=== PATIENT | female | born 1945 | race Caucasian/White ===

== ENCOUNTER → 2018-01-23 | Outpatient (CLI) | payer MEDICARE, BC ==
--- NOTE | 2018-01-25 10:32 | MM ---
Reason for exam: screening (asymptomatic). Last mammogram was performed 1 year and 3 months ago. History: Patient is postmenopausal. Physical Findings: A clinical breast exam by your physician is recommended on an annual basis and results should be correlated with mammographic findings. MG 3D Screening Mammo W/Cad Bilateral CC and MLO view(s) were taken. Prior study comparison: October 25, 2016, right breast MG work up mamm w CAD RT. October 12, 2016, bilateral MG screening mammo w CAD. The breast tissue is heterogeneously dense. This may lower the sensitivity of mammography. Post surgical changes in the right breast outer CC view. No significant changes when compared with prior studies. ASSESSMENT: Benign, BI-RAD 2 RECOMMENDATION: Routine screening mammogram of both breasts in 1 year.
== END | disposition home or self-care (01) ==
LOC: RADMAMWWP 11:05
PROVIDERS: ATTEND Family Medicine
DX: Z12.31 Encounter for screening mammogram for malignant neoplasm of breast (principal)
CPT/HCPCS: 77063; 77067

== ENCOUNTER → 2018-12-31 | Outpatient (CLI) | payer MEDICARE ==
--- NOTE | 2018-12-31 17:18 | BD ---
EXAMINATION TYPE: Axial Bone Density DATE OF EXAM: 12/31/2018 COMPARISON: NONE CLINICAL HISTORY: 73-year-old female age-related osteoporosis Height: 58.5 IN Weight: 146 LBS RISK FACTORS HISTORY OF: Active: YES Diet low in dairy products/other sources of calcium: YES Postmenopausal woman: AGE 53 MEDICATIONS: Thyroid Medications: YES Which medication: Levothyroxine How Lon + YEARS Osteoporosis Medications: YES Which medication: ALENDRONATE SODIUM How Lon YEARS Additional Medications: VITAMIN D, XANAX, ASPIRIN, FUROSEMIDE, GLIMEPIRIDE, LEVOTHYROXINE, METFORMIN, SIMVASTATIN, TYLENOL, ABILIFY, CELEXA, ALENDRONATE SODIUM EXAM MEASUREMENTS: Bone mineral densitometry was performed using the [employer] System. Bone mineral density as measured about the Lumbar spine is: ----- L1-L4(G/cm2): 1.036 T Score Values are as follows: ----- L2: -1.2 ----- L3: -0.9 ----- L4: -1.0 ----- L1-L4: -1.2 Bone mineral density has: Decreased -0.7% since study of: 10/12/2016 Bone mineral density about the R hip (g/cm2): 0.648 Bone mineral density about the L hip (g/cm2): 0.681 T Score values are as follows: -----R Neck: -2.8 -----L Neck: -2.6 -----R Total: -1.8 -----L Total: -1.4 Bone mineral density has: NO CHANGE 0.0% since study of: 10/12/2016 IMPRESSION: Osteoporosis (T Score less than -2.5). There is increased fracture risk and therapy is usually indicated based on age. Re-Screen 1-2 years. NOTE: T-SCORE=SD OF THE YOUNG ADULT MEAN.
== END | disposition home or self-care (01) ==
LOC: RADBDWWP 13:17
PROVIDERS: ATTEND Family Medicine
DX: M81.0 Age-related osteoporosis without current pathological fracture (principal)
CPT/HCPCS: 77080

== ENCOUNTER → 2019-11-08 | Outpatient (CLI) | payer MEDICARE ==
--- NOTE | 2019-11-08 15:23 | US ---
EXAMINATION TYPE: US abdomen limited DATE OF EXAM: 11/08/2019 COMPARISON: NONE CLINICAL HISTORY: R94.5 Abnormal results of liver function studies. Abnormal labs EXAM MEASUREMENTS: Liver Length: 15.1 cm Gallbladder Wall: 0.2 cm CBD: 0.6 cm Right Kidney: 9.0 x 3.7 x 4.7 cm Pancreas: wnl, tail obscured by overlying bowel gas Liver: Heterogeneous Gallbladder: wnl Evidence for sonographic Roman's sign: No CBD: wnl Right Kidney: Small in size, cortical thinning, lower pole gassed out Heterogeneity of liver without worrisome mass or ductal dilatation on the images saved. No surroundin g ascites. IMPRESSION: Probable mild diffuse fatty infiltration of liver.
== END | disposition home or self-care (01) ==
LOC: RADUSWWP 14:45
PROVIDERS: ATTEND Family Medicine
DX: R94.5 Abnormal results of liver function studies (principal)
CPT/HCPCS: 76705

== ENCOUNTER → 2019-12-04 | Outpatient (CLI) | payer MEDICARE ==
--- NOTE | 2019-12-05 13:55 | MM ---
Reason for exam: screening (asymptomatic). Last mammogram was performed 1 year and 10 months ago. History: Patient is postmenopausal. Physical Findings: A clinical breast exam by your physician is recommended on an annual basis and results should be correlated with mammographic findings. MG 3D Screening Mammo W/Cad Bilateral CC and MLO view(s) were taken. Prior study comparison: January 23, 2018, bilateral MG 3d screening mammo w/cad. October 25, 2016, right breast MG work up mamm w CAD RT. The breast tissue is heterogeneously dense. This may lower the sensitivity of mammography. Right sided parenchymal scarring from port. No significant changes when compared with prior studies. ASSESSMENT: Benign, BI-RAD 2 RECOMMENDATION: Routine screening mammogram of both breasts in 1 year.
== END | disposition home or self-care (01) ==
LOC: RADMAMWWP 13:03
PROVIDERS: ATTEND Family Medicine
DX: Z12.31 Encounter for screening mammogram for malignant neoplasm of breast (principal)
CPT/HCPCS: 77063; 77067

== ENCOUNTER → 2021-01-04 | Outpatient (CLI) | payer MEDICARE ==
--- NOTE | 2021-01-04 16:03 | BD ---
EXAMINATION TYPE: Axial Bone Density DATE OF EXAM: 01/04/2021 COMPARISON: 10/12/2016 CLINICAL HISTORY: Height: 58 IN Weight: 137 LBS FRAX RISK QUESTIONS: Secondary Osteoporosis: 1. Type 1 Diabetes: YES 2. Hyperthyroidism: YES RISK FACTORS HISTORY OF: History of Wrist Fracture: YES RT WRIST FX IN TEENS Active: YES Postmenopausal woman: AGE 59 MEDICATIONS: Thyroid Medications: YES Which medication: Levothyroxine How Lon+ YEARS Additional Medications: CALCIUM, VIT D, CELEXA, ASPIRIN, FUROSEMIDE, LEVOTHYROXINE, SIMVASTATIN, TYLE NOL, ABILIFY, CELEXA, EXAM MEASUREMENTS: Bone mineral densitometry was performed using the [employer] System. Bone mineral density as measured about the Lumbar spine is: ----- L1-L4(G/cm2): 1.070 T Score Values are as follows: ----- L2: -1.1 ----- L3: -0.5 ----- L4: -0.5 ----- L1-L4: -0.9 Bone mineral density has: Increased 3.0% since study of: 10/12/2016 Bone mineral density about the R hip (g/cm2): 0.659 Bone mineral density about the L hip (g/cm2): 0.686 T Score values are as follows: -----R Neck: -2.7 -----L Neck: -2.5 -----R Total: -2.0 -----L Total: -1.5 Bone mineral density has: Decreased -2.5% since study of: 10/12/2016 IMPRESSION: Osteoporosis (T Score less than -2.5). There is increased fracture risk and therapy is usually indicated based on age. Re-Screen 1-2 years. NOTE: T-SCORE=SD OF THE YOUNG ADULT MEAN.
== END | disposition home or self-care (01) ==
LOC: RADBDWWP 08:26
PROVIDERS: ATTEND Family Medicine
DX: M81.0 Age-related osteoporosis without current pathological fracture (principal); Z78.0 Asymptomatic menopausal state
CPT/HCPCS: 77080

== ENCOUNTER → 2021-02-24 | Outpatient (CLI) | payer MEDICARE ==
--- NOTE | 2021-03-01 09:24 | MM ---
Reason for exam: screening (asymptomatic). Last mammogram was performed 1 year and 3 months ago. History: Patient is postmenopausal. Excisional biopsy of the right breast. Physical Findings: A clinical breast exam by your physician is recommended on an annual basis and results should be correlated with mammographic findings. MG 3D Screening Mammo W/Cad Bilateral CC and MLO view(s) were taken. Prior study comparison: December 04, 2019, bilateral MG 3d screening mammo w/cad. January 23, 2018, bilateral MG 3d screening mammo w/cad. The breast tissue is heterogeneously dense. This may lower the sensitivity of mammography. Increased distortion at prior biopsy right breast. This finding is changed when compared with previous exams. ASSESSMENT: Incomplete: need additional imaging evaluation, BI-RAD 0 RECOMMENDATION: Special view mammogram of the right breast. If lesion persists on supplemental views, image directed ultrasound is recommended. [facility] will attempt to contact patient to return for supplemental views and ultrasound if indicated.
== END | disposition home or self-care (01) ==
LOC: RADMAMWWP 13:46
PROVIDERS: ATTEND Family Medicine
DX: Z12.31 Encounter for screening mammogram for malignant neoplasm of breast (principal)
CPT/HCPCS: 77063; 77067

== ENCOUNTER → 2021-03-04 | Outpatient (CLI) | payer MEDICARE ==
--- NOTE | 2021-03-04 10:36 | MM ---
Reason for exam: additional evaluation requested from abnormal screening. Last mammogram was performed less than 1 month ago. History: Patient is postmenopausal. Excisional biopsy of the right breast. Physical Findings: Nurse did not find any significant physical abnormalities on exam. MG 3D Work Up W/Cad RT Spot compression CC, spot compression MLO, and ML view(s) were taken of the right breast. Prior study comparison: February 24, 2021, bilateral MG 3d screening mammo w/cad. December 04, 2019, bilateral MG 3d screening mammo w/cad. Finding: Stable architectural distortion in the upper outer quadrant, middle position of the right breast consistent with known surgical changes/scar. There is no discrete abnormality. These results were verbally communicated with the patient and result sheet given to the patient on 03/04/21. ASSESSMENT: Benign, BI-RAD 2 RECOMMENDATION: Return to routine screening mammogram schedule for both breasts.
== END | disposition home or self-care (01) ==
LOC: RADMAMWWP 08:41
PROVIDERS: ATTEND Family Medicine
DX: R92.8 Other abnormal and inconclusive findings on diagnostic imaging of breast (principal)
CPT/HCPCS: 77065; G0279; 77061

== ENCOUNTER → 2021-09-06 | Outpatient (CLI) | payer MEDICARE ==
--- NOTE | 2021-09-06 11:11 | US ---
EXAMINATION TYPE: US kidneys/renal and bladder DATE OF EXAM: 09/06/2021 COMPARISON: NONE CLINICAL HISTORY: R31.1 Micro hematuria. EXAM MEASUREMENTS: Right Kidney: 9.3 x 3.7 x 4.7 cm Left Kidney: 8.9 x 4.4 x 5.7 cm Right Kidney: No hydronephrosis or masses seen Left Kidney: 1.1 x 1.2 x 1.2 cm lateral cyst. Bladder: wnl Bilateral Jets seen: No There is no evidence for hydronephrosis at this point in time. No nephrolithiasis is seen. No solid masses are identified. The urinary bladder is anechoic. IMPRESSION: Left renal cyst.
== END | disposition home or self-care (01) ==
LOC: RADUSWWP 10:42
PROVIDERS: ATTEND Urology
DX: N28.1 Cyst of kidney, acquired (principal)
CPT/HCPCS: 76770

== ENCOUNTER → 2021-11-10 | Outpatient (CLI) | payer MEDICARE ==
[2021-11-10 19:17] LABS: African American GFR (CKD) 71.5 (60.0-200.0); BUN/Creat Ratio 12.22 Ratio (12.00-20.00); Calcium 9.6 mg/dL (8.7-10.3); Non-African American GFR(CKD) 61.7 (60.0-200.0); Potassium 4.4 mmol/L (3.5-5.5)
== END | disposition home or self-care (01) ==
LOC: LABWHC1 14:41
PROVIDERS: ATTEND Nurse Practitioner Adult Health
DX: E11.69 Type 2 diabetes mellitus with other specified complication (principal)
CPT/HCPCS: 36415; 80048; 83036

== ENCOUNTER 2022-07-27 13:05 | Observation (INO) | payer MEDICARE ==
[2022-07-27] MEDS ORDERED: SODIUM CHLORIDE 0.9% 1,000 ML IV STA (15:12)
--- NOTE | 2022-07-27 15:23 | ED ---
Altered Mental Status HPI - General Chief Complaint: Altered Mental Status Stated Complaint: AMS Time Seen by Provider: 07/27/22 14:56 Source: patient Mode of arrival: wheelchair Limitations: altered mental status - History of Present Illness Initial Comments: This patient is 77-year-old woman brought to have evaluation of altered mental status. Most of the history comes from the patient's . He states that per her primary physician she may have some mild dementia. He states that over the past number days she has been getting more confused and disoriented. Today they had gone to eat and she ended up falling asleep during the meal. She then also had incontinence there. The patient's had taken her home to clean her up. He states that when he got her undressed and during the shower she basically had no idea how to shower or what was going on. He brings her here to have further evaluation. Patient is able to answer simple direct questions and denies physical complaint at the moment MD Complaint: altered mental status, confusion -: days(s) Severity: moderate Consistency of Symptoms: getting worse Associated Symptoms: other - Related Data Home Medications Medication Instructions Recorded Confirmed ARIPiprazole 5 mg PO DAILY 07/27/22 07/27/22 Acetaminophen Tab [Tylenol Tab] 1,000 mg PO Q6H PRN 07/27/22 07/27/22 Alendronate Sodium 70 mg PO CALABRESE 07/27/22 07/27/22 Aspirin EC [Ecotrin Low Dose] 81 mg PO DAILY 07/27/22 07/27/22 Calcium Citrate/Vitamin D3 1 tab PO DAILY 07/27/22 07/27/22 [Citracal + D Maximum Caplet] Citalopram Hydrobromide 20 mg PO DAILY 07/27/22 07/27/22 [Citalopram HBr] Cyanocobalamin (Vitamin B-12) 1,000 mcg PO DAILY 07/27/22 07/27/22 [Vitamin B-12] Furosemide [Lasix] 20 mg PO DAILY 07/27/22 07/27/22 Levothyroxine Sodium 100 mcg PO DAILY 07/27/22 07/27/22 Simvastatin 80 mg PO HS 07/27/22 07/27/22 metFORMIN HCL [Glucophage] 500 mg PO TID 07/27/22 07/27/22 Allergies Allergy/AdvReac Type Severity Reaction Status Date / Time peanut AdvReac "Watery Verified 07/27/22 16:48 eyes" Review of Systems ROS Statement: Those systems with pertinent positive or pertinent negative responses have been documented in the HPI. ROS Other: All systems not noted in ROS Statement are negative. Limitations: ROS unobtainable due to patients medical condition Constitutional: Denies: fever Respiratory: Denies: cough, dyspnea Cardiovascular: Denies: chest pain Gastrointestinal: Denies: abdominal pain Musculoskeletal: Denies: back pain Neurological: Denies: headache Past Medical History Past Medical History: Diabetes Mellitus, Hyperlipidemia, Hypertension, Thyroid Disorder History of Any Multi-Drug Resistant Organisms: None Reported Past Surgical History: No Surgical Hx Reported Past Psychological History: Depression Smoking Status: Never smoker Past Alcohol Use History: None Reported Past Drug Use History: None Reported General Exam Limitations: no limitations General appearance: alert, in no apparent distress Head exam: Present: atraumatic, normocephalic Eye exam: Present: normal appearance. Absent: scleral icterus, conjunctival injection Neck exam: Present: normal inspection, full ROM Respiratory exam: Present: normal lung sounds bilaterally. Absent: respiratory distress, wheezes, rales, rhonchi, stridor Cardiovascular Exam: Present: regular rate, normal rhythm, normal heart sounds. Absent: systolic murmur, diastolic murmur, rubs, gallop GI/Abdominal exam: Present: soft. Absent: distended, tenderness, guarding, rebound, rigid, mass Extremities exam: Present: normal inspection, normal capillary refill. Absent: pedal edema, calf tenderness Back exam: Present: normal inspection Neurological exam: Present: alert, CN II-XII intact. Absent: oriented X3 (Patient is oriented to person and place but could not state the date), motor sensory deficit Skin exam: Present: warm, dry, intact, normal color. Absent: rash Course Vital Signs 07/27/22 07/27/22 07/27/22 13:12 15:25 16:25 Temperature 97.8 F 98.7 F Pulse Rate 110 H 94 Respiratory 16 18 20 Rate Blood Pressure 119/70 149/71 O2 Sat by Pulse 100 98 Oximetry 07/27/22 07/27/22 07/27/22 17:11 19:06 22:18 Temperature Pulse Rate 78 92 Respiratory 20 18 18 Rate Blood Pressure 150/73 151/75 O2 Sat by Pulse 100 97 Oximetry 07/28/22 00:07 Temperature Pulse Rate Respiratory Rate Blood Pressure 154/83 O2 Sat by Pulse Oximetry Medical Decision Making - Medical Decision Making Patient is 77-year-old woman here for altered mental status. Workup reveals that there is elevated lactic acid, but no obvious source of infection. Cultures are pending. The computed tomography scan does reveal bilaterally enlarged ventricles and there is questionable normal pressure hydrocephalus. Patient be admitted for further evaluation and treatment. - Lab Data Result diagrams: 07/27/22 15:28 07/27/22 15: Lab Results 07/27/22 07/27/22 07/27/22 Range/Units 15:28 15: 15: WBC 9.9 (3.8-10.6) k/uL RBC 4.13 (3.80-5.40) m/uL Hgb 11.4 (11.4-16.0) gm/dL Hct 35.7 (34.0-46.0) % MCV 86.4 (80.0-100.0) fL MCH 27.7 (25.0-35.0) pg MCHC 32.0 (31.0-37.0) g/dL RDW 14.3 (11.5-15.5) % Plt Count 257 (150-450) k/uL MPV 7.5 Neutrophils % 82 % Lymphocytes % 12 % Monocytes % 5 % Eosinophils % 0 % Basophils % 0 % Neutrophils # 8.1 H (1.3-7.7) k/uL Lymphocytes # 1.2 (1.0-4.8) k/uL Monocytes # 0.5 (0-1.0) k/uL Eosinophils # 0.0 (0-0.7) k/uL Basophils # 0.0 (0-0.2) k/uL PT 10.2 (9.0-12.0) sec INR 0.9 (<1.2) APTT 23.3 (22.0-30.0) sec Sodium (137-145) mmol/L Potassium (3.5-5.1) mmol/L Chloride (98-107) mmol/L Carbon Dioxide (22-30) mmol/L Anion Gap mmol/L BUN (7-17) mg/dL Creatinine (0.52-1.04) mg/dL Est GFR (CKD-EPI)AfAm (>60 ml/min/1.73 sqM) Est GFR (CKD-EPI)NonAf (>60 ml/min/1.73 sqM) Glucose (74-99) mg/dL POC Glucose (mg/dL) (70-110) mg/dL POC Glu Bandage Maker ID Lactic Ac Sepsis Rflx Plasma Lactic Acid Mark (0.7-2.0) mmol/L Calcium (8.4-10.2) mg/dL Total Bilirubin (0.2-1.3) mg/dL AST (14-36) U/L ALT (4-34) U/L Alkaline Phosphatase (38-126) U/L Ammonia (<30) umol/L Troponin I (0.000-0.034) ng/mL Total Protein (6.3-8.2) g/dL Albumin (3.5-5.0) g/dL Urine Color Colorless Urine Appearance Clear (Clear) Urine pH 7.5 (5.0-8.0) Ur Specific [place] 1.004 (1.001-1.035) Urine Protein Negative (Negative) Urine Glucose (UA) Negative (Negative) Urine Ketones 2+ H (Negative) Urine Blood Small H (Negative) Urine Nitrite Negative (Negative) Urine Bilirubin Negative (Negative) Urine Urobilinogen <2.0 (<2.0) mg/dL Ur Leukocyte Esterase Negative (Negative) Urine RBC 3 (0-5) /hpf Urine Opiates Screen Not Detected (NotDetected) Ur Oxycodone Screen Not Detected (NotDetected) Urine Methadone Screen Not Detected (NotDetected) Ur Propoxyphene Screen Not Detected (NotDetected) Ur Barbiturates Screen Not Detected (NotDetected) U Tricyclic Antidepress Not Detected (NotDetected) Ur Phencyclidine Scrn Not Detected (NotDetected) Ur Amphetamines Screen Not Detected (NotDetected) U Methamphetamines Scrn Not Detected (NotDetected) U Benzodiazepines Scrn Not Detected (NotDetected) Urine Cocaine Screen Not Detected (NotDetected) U Marijuana (THC) Screen Not Detected (NotDetected) 07/27/22 07/27/22 07/27/22 Range/Units 15:28 15:28 15:28 WBC (3.8-10.6) k/uL RBC (3.80-5.40) m/uL Hgb (11.4-16.0) gm/dL Hct (34.0-46.0) % MCV (80.0-100.0) fL MCH (25.0-35.0) pg MCHC (31.0-37.0) g/dL RDW (11.5-15.5) % Plt Count (150-450) k/uL MPV Neutrophils % % Lymphocytes % % Monocytes % % Eosinophils % % Basophils % % Neutrophils # (1.3-7.7) k/uL Lymphocytes # (1.0-4.8) k/uL Monocytes # (0-1.0) k/uL Eosinophils # (0-0.7) k/uL Basophils # (0-0.2) k/uL PT (9.0-12.0) sec INR (<1.2) APTT (22.0-30.0) sec Sodium 138 (137-145) mmol/L Potassium 4.0 (3.5-5.1) mmol/L Chloride 96 L (98-107) mmol/L Carbon Dioxide 22 (22-30) mmol/L Anion Gap 20 mmol/L BUN 19 H (7-17) mg/dL Creatinine 1.09 H (0.52-1.04) mg/dL Est GFR (CKD-EPI)AfAm 56 (>60 ml/min/1.73 sqM) Est GFR (CKD-EPI)NonAf 49 (>60 ml/min/1.73 sqM) Glucose 150 H (74-99) mg/dL POC Glucose (mg/dL) (70-110) mg/dL POC Glu Bandage Maker ID Lactic Ac Sepsis Rflx Plasma Lactic Acid Mark 7.8 H* (0.7-2.0) mmol/L Calcium 9.5 (8.4-10.2) mg/dL Total Bilirubin 1.2 (0.2-1.3) mg/dL AST 28 (14-36) U/L ALT 25 (4-34) U/L Alkaline Phosphatase 89 (38-126) U/L Ammonia <9 (<30) umol/L Troponin I <0.012 (0.000-0.034) ng/mL Total Protein 7.4 (6.3-8.2) g/dL Albumin 4.7 (3.5-5.0) g/dL Urine Color Urine Appearance (Clear) Urine pH (5.0-8.0) Ur Specific [place] (1.001-1.035) Urine Protein (Negative) Urine Glucose (UA) (Negative) Urine Ketones (Negative) Urine Blood (Negative) Urine Nitrite (Negative) Urine Bilirubin (Negative) Urine Urobilinogen (<2.0) mg/dL Ur Leukocyte Esterase (Negative) Urine RBC (0-5) /hpf Urine Opiates Screen (NotDetected) Ur Oxycodone Screen (NotDetected) Urine Methadone Screen (NotDetected) Ur Propoxyphene Screen (NotDetected) Ur Barbiturates Screen (NotDetected) U Tricyclic Antidepress (NotDetected) Ur Phencyclidine Scrn (NotDetected) Ur Amphetamines Screen (NotDetected) U Methamphetamines Scrn (NotDetected) U Benzodiazepines Scrn (NotDetected) Urine Cocaine Screen (NotDetected) U Marijuana (THC) Screen (NotDetected) 07/27/22 07/27/22 07/27/22 Range/Units 16:17 16:54 20:30 WBC (3.8-10.6) k/uL RBC (3.80-5.40) m/uL Hgb (11.4-16.0) gm/dL Hct (34.0-46.0) % MCV (80.0-100.0) fL MCH (25.0-35.0) pg MCHC (31.0-37.0) g/dL RDW (11.5-15.5) % Plt Count (150-450) k/uL MPV Neutrophils % % Lymphocytes % % Monocytes % % Eosinophils % % Basophils % % Neutrophils # (1.3-7.7) k/uL Lymphocytes # (1.0-4.8) k/uL Monocytes # (0-1.0) k/uL Eosinophils # (0-0.7) k/uL Basophils # (0-0.2) k/uL PT (9.0-12.0) sec INR (<1.2) APTT (22.0-30.0) sec Sodium (137-145) mmol/L Potassium (3.5-5.1) mmol/L Chloride (98-107) mmol/L Carbon Dioxide (22-30) mmol/L Anion Gap mmol/L BUN (7-17) mg/dL Creatinine (0.52-1.04) mg/dL Est GFR (CKD-EPI)AfAm (>60 ml/min/1.73 sqM) Est GFR (CKD-EPI)NonAf (>60 ml/min/1.73 sqM) Glucose (74-99) mg/dL POC Glucose (mg/dL) 160 H (70-110) mg/dL POC Glu Bandage Maker ID Ariana Layton Lactic Ac Sepsis Rflx Y Plasma Lactic Acid Mark 4.7 H* (0.7-2.0) mmol/L Calcium (8.4-10.2) mg/dL Total Bilirubin (0.2-1.3) mg/dL AST (14-36) U/L ALT (4-34) U/L Alkaline Phosphatase (38-126) U/L Ammonia (<30) umol/L Troponin I (0.000-0.034) ng/mL Total Protein (6.3-8.2) g/dL Albumin (3.5-5.0) g/dL Urine Color Urine Appearance (Clear) Urine pH (5.0-8.0) Ur Specific [place] (1.001-1.035) Urine Protein (Negative) Urine Glucose (UA) (Negative) Urine Ketones (Negative) Urine Blood (Negative) Urine Nitrite (Negative) Urine Bilirubin (Negative) Urine Urobilinogen (<2.0) mg/dL Ur Leukocyte Esterase (Negative) Urine RBC (0-5) /hpf Urine Opiates Screen (NotDetected) Ur Oxycodone Screen (NotDetected) Urine Methadone Screen (NotDetected) Ur Propoxyphene Screen (NotDetected) Ur Barbiturates Screen (NotDetected) U Tricyclic Antidepress (NotDetected) Ur Phencyclidine Scrn (NotDetected) Ur Amphetamines Screen (NotDetected) U Methamphetamines Scrn (NotDetected) U Benzodiazepines Scrn (NotDetected) Urine Cocaine Screen (NotDetected) U Marijuana (THC) Screen (NotDetected) 07/27/22 Range/Units 21:12 WBC (3.8-10.6) k/uL RBC (3.80-5.40) m/uL Hgb (11.4-16.0) gm/dL Hct (34.0-46.0) % MCV (80.0-100.0) fL MCH (25.0-35.0) pg MCHC (31.0-37.0) g/dL RDW (11.5-15.5) % Plt Count (150-450) k/uL MPV Neutrophils % % Lymphocytes % % Monocytes % % Eosinophils % % Basophils % % Neutrophils # (1.3-7.7) k/uL Lymphocytes # (1.0-4.8) k/uL Monocytes # (0-1.0) k/uL Eosinophils # (0-0.7) k/uL Basophils # (0-0.2) k/uL PT (9.0-12.0) sec INR (<1.2) APTT (22.0-30.0) sec Sodium (137-145) mmol/L Potassium (3.5-5.1) mmol/L Chloride (98-107) mmol/L Carbon Dioxide (22-30) mmol/L Anion Gap mmol/L BUN (7-17) mg/dL Creatinine (0.52-1.04) mg/dL Est GFR (CKD-EPI)AfAm (>60 ml/min/1.73 sqM) Est GFR (CKD-EPI)NonAf (>60 ml/min/1.73 sqM) Glucose (74-99) mg/dL POC Glucose (mg/dL) (70-110) mg/dL POC Glu Bandage Maker ID Lactic Ac Sepsis Rflx Y Plasma Lactic Acid Mark (0.7-2.0) mmol/L Calcium (8.4-10.2) mg/dL Total Bilirubin (0.2-1.3) mg/dL AST (14-36) U/L ALT (4-34) U/L Alkaline Phosphatase (38-126) U/L Ammonia (<30) umol/L Troponin I (0.000-0.034) ng/mL Total Protein (6.3-8.2) g/dL Albumin (3.5-5.0) g/dL Urine Color Urine Appearance (Clear) Urine pH (5.0-8.0) Ur Specific [place] (1.001-1.035) Urine Protein (Negative) Urine Glucose (UA) (Negative) Urine Ketones (Negative) Urine Blood (Negative) Urine Nitrite (Negative) Urine Bilirubin (Negative) Urine Urobilinogen (<2.0) mg/dL Ur Leukocyte Esterase (Negative) Urine RBC (0-5) /hpf Urine Opiates Screen (NotDetected) Ur Oxycodone Screen (NotDetected) Urine Methadone Screen (NotDetected) Ur Propoxyphene Screen (NotDetected) Ur Barbiturates Screen (NotDetected) U Tricyclic Antidepress (NotDetected) Ur Phencyclidine Scrn (NotDetected) Ur Amphetamines Screen (NotDetected) U Methamphetamines Scrn (NotDetected) U Benzodiazepines Scrn (NotDetected) Urine Cocaine Screen (NotDetected) U Marijuana (THC) Screen (NotDetected) - EKG Data -: EKG Interpreted by Me EKG shows normal: sinus rhythm, axis (Rate is 102 BPM normal), intervals (Normal), QRS complexes (Normal) Rate: tachycardia Interpretation: nonspecific ST-T wave changes Disposition Clinical Impression: Altered mental status, Lactic acidosis Disposition: ADMITTED IP TO THIS [facility] Condition: Stable Is patient prescribed a controlled substance at d/c from ED?: No
[2022-07-27 15:49] LABS: Basophils % (A) 0 %; Eosinophils % (A) 0 %; HCT 35.7 % (34.0-46.0); HGB 11.4 gm/dL (11.4-16.0); Lymphocytes # (A) 1.2 k/uL (1.0-4.8); Lymphocytes % (A) 12 %; MCH 27.7 pg (25.0-35.0); MCV 86.4 fL (80.0-100.0); Mean Platelet Volume 7.5; Monocytes # (A) 0.5 k/uL (0-1.0); Monocytes % (A) 5 %; Neutrophils # (A) 8.1 k/uL (1.3-7.7); Neutrophils % (A) 82 %; Platelet Count 257 k/uL (150-450); RBC 4.13 m/uL (3.80-5.40); RDW 14.3 % (11.5-15.5); WBC 9.9 k/uL (3.8-10.6)
[2022-07-27 16:02] LABS: Albumin 4.7 g/dL (3.5-5.0); Calcium 9.5 mg/dL (8.4-10.2); Total Bilirubin 1.2 mg/dL (0.2-1.3); Total Protein 7.4 g/dL (6.3-8.2)
[2022-07-27 16:15] LABS: INR 0.9 (<1.2); Partial Thromboplastin Time 23.3 sec (22.0-30.0); Prothrombin Time 10.2 sec (9.0-12.0)
[2022-07-27 16:16] LABS: Lactic Acid, Venous 7.8 mmol/L (0.7-2.0)
[2022-07-27 16:56] LABS: Glucose,Whole Blood 160 mg/dL (70-110)
--- NOTE | 2022-07-27 17:03 | XR ---
EXAMINATION TYPE: XR chest 2V DATE OF EXAM: 07/27/2022 COMPARISON: NONE HISTORY: Weakness TECHNIQUE: 2 views FINDINGS: There is no heart failure nor confluent pneumonic infiltrate. Costophrenic angles are clear . There are no hilar masses. No pleural effusion. Bony thorax is intact there are chest leads. Pulmon monique vascularity is normal. There is moderate arthritic change of the right shoulder joint. IMPRESSION: No active cardiopulmonary disease.
[2022-07-27] MEDS ORDERED: SODIUM CHLORIDE 0.9% 1,000 ML IV ONE (17:20)
[2022-07-27 19:01] LABS: Appearance,Urine Clear (Clear); Bilirubin,Urine Negative (Negative); Blood,Urine Small (Negative); Color,Urine Colorless; Glucose,Urine (UA) Negative (Negative); Ketones,Urine 2+ (Negative); Leukocyte Esterase,Urine Negative (Negative); Nitrite,Urine Negative (Negative); PH, Urine 7.5 (5.0-8.0); Protein,Urine Negative (Negative); RBC,Urine 3 /hpf (0-5); Specific Gravity,Urine 1.004 (1.001-1.035); Urobilinogen,Urine <2.0 mg/dL (<2.0)
[2022-07-27 19:24] LABS: Amphetamine Screen,Urine Not Detected (NotDetected); Barbiturate Screen,Urine Not Detected (NotDetected); Benzodiazepines Screen,Urine Not Detected (NotDetected); Cocaine Screen,Urine Not Detected (NotDetected); Methadone Screen, Urine Not Detected (NotDetected); Opiate Screen,Urine Not Detected (NotDetected); Oxycodone Screen, Urine Not Detected (NotDetected); Phencyclidine Screen,Urine Not Detected (NotDetected); Tricyclic Antidepressant,Urine Not Detected (NotDetected); Urn Cannabinoid Scrn Not Detected (NotDetected)
[2022-07-27] MEDS ORDERED: ACETAMINOPHEN TAB 325 MG TAB PO PRN (21:31)
[2022-07-27] MEDS ORDERED: NALOXONE 0.4 MG/ML 1 ML VIAL IV PRN (21:31)
--- NOTE | 2022-07-27 21:40 | CT ---
EXAMINATION TYPE: CT brain wo con DATE OF EXAM: 07/27/2022 COMPARISON: 02/18/2011 HISTORY: AMS CT DLP: 1090.4 mGycm Automated exposure control for dose reduction was used. There is cerebral cortical atrophy. There is no mass effect or midline shift. No sign of intracranial hemorrhage. There is hypodensity in the periventricular white matter. Calvarium is intact. Skull bas e is intact. IMPRESSION: Cerebral atrophy and chronic small vessel ischemia that has progressed compared to old exam. No acute abnormality.
[2022-07-27] MEDS ORDERED: SODIUM CHLORIDE 0.9% 500 ML 500 ML IV STA (22:10)
--- NOTE | 2022-07-28 03:13 | P.HPIM ---
History of Present Illness H&P Date: 07/27/22 The patient is a 77-year-old female with a PMH of type 2 dm and dementia who was brought into the emergency room accompanied by her for worsening confusion. The history is largely provided by the at the bedside. He reports that the patient's mentation is gradually been deteriorating over the past several years, but notes that she was acutely confused earlier today. States that they were out having lunch when she appeared to not be quite herself. She had an episode of fecal incontinence at which time he took her home. He reports however that she continued to be very confused and was unable to get into the shower and did not know how to bathe herself. He became alarmed and decided to bring her to the emergency room. At time of interview, the patient reports that she may have been confused earlier today but denied any additional complaints. She denied experiencing fever, chills, chest pain, shortness of breath, nausea, vomiting, abdominal pain, diarrhea. CT brain in the emergency room revealed cerebral atrophy and chronic small vessel ischemia with no acute abnormalities. EKG revealed sinus a cardiac 102 bpm with no specific ST/T-wave changes noted as reviewed by me. Chest x-ray was unremarkable. Laboratory evaluation was remarkable for a lactic acid of 7.8 and subsequent 4.7. BUN was 19 creatinine 1.09 glucose 150. Review of systems: Pertinent positives and negatives as discussed in HPI, a complete review of systems was performed and all other systems are negative. Physical examination: General: non toxic, no distress, appears at stated age, normal weight Derm: no unusual rashes/lesions, warm Head: atraumatic, normocephalic, symmetric Eyes: EOMI, no lid lag, anicteric sclera, pupils equal round reactive to light ENT: Nose and ears atraumatic Neck: No cervical lymphadenopathy, trachea midline, supple Mouth: no lip lesion, mucus membranes moist Cardiovascular: S1S2 reg, no murmur, positive dorsalis pedis pulse bilateral, no edema Lungs: CTA bilateral, no rhonchi, no rales, no accessory muscle use Abdominal: soft, nontender to palpation, no guarding Ext: muscle strength 5 out of 5 in all 4 extremities grossly, no gross muscle atrophy, no contractures, Neuro: CN II-XI grossly intact, no gross focal neuro deficits Psych: Alert, oriented only to person and place, not oriented to time Assessment/plan Altered mental status, with baseline dementia, unclear etiology -No obvious source of infection noted -Fall precautions -Neurology consult Lactic acidosis, unclear etiology -Monitor blood cultures -Received ceftriaxone in the emergency room -IV fluids -Monitor for resolution Chronic conditions: Type 2 DM -Insulin sliding scale with BG monitoring DVT prophylaxis -Heparin subq The patient is admitted with an anticipated less than 2 midnight stay for evaluation of AMS CODE STATUS: Full Code Discussed with: Patient, Anticipated discharge date: in am Anticipated discharge place: Home Past Medical History Past Medical History: Diabetes Mellitus, Hyperlipidemia, Hypertension, Thyroid Disorder History of Any Multi-Drug Resistant Organisms: None Reported Past Surgical History: No Surgical Hx Reported Past Psychological History: Depression Smoking Status: Never smoker Past Alcohol Use History: None Reported Past Drug Use History: None Reported - Past Family History Brother(s) Additional Family Medical History / Comment(s): Unable to obtain due to patient's underlying dementia Medications and Allergies Home Medications Medication Instructions Recorded Confirmed Type ARIPiprazole 5 mg PO DAILY 07/27/22 07/27/22 History Acetaminophen Tab [Tylenol Tab] 1,000 mg PO Q6H PRN 07/27/22 07/27/22 History Alendronate Sodium 70 mg PO CALABRESE 07/27/22 07/27/22 History Aspirin EC [Ecotrin Low Dose] 81 mg PO DAILY 07/27/22 07/27/22 History Calcium Citrate/Vitamin D3 1 tab PO DAILY 07/27/22 07/27/22 History [Citracal + D Maximum Caplet] Citalopram Hydrobromide 20 mg PO DAILY 07/27/22 07/27/22 History [Citalopram HBr] Cyanocobalamin (Vitamin B-12) 1,000 mcg PO DAILY 07/27/22 07/27/22 History [Vitamin B-12] Furosemide [Lasix] 20 mg PO DAILY 07/27/22 07/27/22 History Levothyroxine Sodium 100 mcg PO DAILY 07/27/22 07/27/22 History Simvastatin 80 mg PO HS 07/27/22 07/27/22 History metFORMIN HCL [Glucophage] 500 mg PO TID 07/27/22 07/27/22 History Allergies Allergy/AdvReac Type Severity Reaction Status Date / Time peanut AdvReac "Watery Verified 07/27/22 16:48 eyes" Physical Exam Vitals: Vital Signs Temp Pulse Resp BP Pulse Ox 07/27/22 22:18 92 18 151/75 97 07/27/22 19:06 78 18 150/73 100 07/27/22 17:11 20 07/27/22 16:25 20 07/27/22 15:25 98.7 F 94 18 149/71 98 07/27/22 13:12 97.8 F 110 H 16 119/70 100 Intake and Output 07/27/22 07/27/22 07/28/22 14:59 22:59 06:59 Other: Weight 55.792 kg Results CBC & Chem 7: 07/27/22 15:28 07/27/22 15:28 Labs: Abnormal Lab Results - Last 24 Hours (Table) 07/27/22 07/27/22 07/27/22 Range/Units 15:28 15:28 15:28 Neutrophils # 8.1 H (1.3-7.7) k/uL Chloride 96 L (98-107) mmol/L BUN 19 H (7-17) mg/dL Creatinine 1.09 H (0.52-1.04) mg/dL Glucose 150 H (74-99) mg/dL POC Glucose (mg/dL) (70-110) mg/dL Plasma Lactic Acid Mark (0.7-2.0) mmol/L Urine Ketones 2+ H (Negative) Urine Blood Small H (Negative) 07/27/22 07/27/22 07/27/22 Range/Units 15:28 16:54 20:30 Neutrophils # (1.3-7.7) k/uL Chloride (98-107) mmol/L BUN (7-17) mg/dL Creatinine (0.52-1.04) mg/dL Glucose (74-99) mg/dL POC Glucose (mg/dL) 160 H (70-110) mg/dL Plasma Lactic Acid Mark 7.8 H* 4.7 H* (0.7-2.0) mmol/L Urine Ketones (Negative) Urine Blood (Negative)
[2022-07-28] MEDS: LEVOTHYROXINE 100 MCG TAB PO SCH (05:43)
[2022-07-28 07:46] LABS: Glucose,Whole Blood 177 mg/dL (70-110)
[2022-07-28] MEDS: ASPIRIN 81 MG PO SCH (08:03)
[2022-07-28] MEDS: CALCIUM CARB-VIT D 500 MG-5 MCG TAB PO SCH (08:04)
[2022-07-28] MEDS: INSULIN ASPART (NovoLOG) 100 UNIT/ML VIAL SQ SCH ×4 (08:04→21:48)
[2022-07-28] MEDS: HEPARIN SODIUM,PORCINE/PF 5,000 UNIT/0.5 ML SYRINGE SQ SCH ×3 (08:04→23:58)
[2022-07-28] MEDS: CYANOCOBALAMIN 500 MCG TAB PO SCH (08:05)
[2022-07-28] MEDS ORDERED: FAMOTIDINE 20 MG TAB PO SCH (09:00)
[2022-07-28] MEDS: ARIPiprazole 5 MG TAB PO SCH (09:09)
--- NOTE | 2022-07-28 10:35 | P.CNNES ---
History of Present Illness Consult date: 07/28/22 Requesting physician: Dre Arrieta Reason for Consult: altered mental status History of Present Illness: This is a 77-year-old woman with medical history of hypertension, hyperlipidemia, hypothyroidism who presented to the emergency department because of confusion. History is obtained from medical record. According to the patient is she does not recall what transpired and let her to the hospital but the last thing that she remembers is that she was out at a restaurant with her . Per medical record according to the primary team the notified the primary team that the patient was confused earlier yesterday and they're having lunch but was not herself. She had an episode of fecal incontinence and continued to be confused. I guess she went into the shower but did not know how to bathe herself so the decided to bring the patient to the emergency department. He felt that the patient has been deteriorating over the past several years mentation-zavala. She denies any history of seizure. She denied any fever or recent sickness. She denies any tongue soreness. Patient denies of any tobacco use, alcohol use or any illicit drug use. Of note patient stated that she has tremor of her right upper extremity at rest and has been going on for years and walks very slow. Some of the workup during this hospital visit consisted of: White blood cell is 9.9 minimally neutrophilic otherwise the rest of the CBC with differential is unremarkable. Initial serum glucose is 150, creatinine is 1.09 Initial plasma lactic acid the vein is 7. 8 repeat is 4.7. AST and ALT is within normal limits Ammonia is less than 9. Urinalysis is negative for urinary tract infection Urine drug screen is not detected. Review of Systems Review of system: The 12 point system was reviewed and apparent positive and negative per HPI. Past Medical History Past Medical History: Diabetes Mellitus, Hyperlipidemia, Hypertension, Thyroid Disorder History of Any Multi-Drug Resistant Organisms: None Reported Past Surgical History: No Surgical Hx Reported Past Anesthesia/Blood Transfusion Reactions: No Reported Reaction Past Psychological History: Depression Smoking Status: Never smoker Past Alcohol Use History: None Reported Past Drug Use History: None Reported - Past Family History Brother(s) Additional Family Medical History / Comment(s): Unable to obtain due to patient's underlying dementia Medications and Allergies Home Medications Medication Instructions Recorded Confirmed Type ARIPiprazole 5 mg PO DAILY 07/27/22 07/27/22 History Acetaminophen Tab [Tylenol Tab] 1,000 mg PO Q6H PRN 07/27/22 07/27/22 History Alendronate Sodium 70 mg PO CALABRESE 07/27/22 07/27/22 History Aspirin EC [Ecotrin Low Dose] 81 mg PO DAILY 07/27/22 07/27/22 History Calcium Citrate/Vitamin D3 1 tab PO DAILY 07/27/22 07/27/22 History [Citracal + D Maximum Caplet] Citalopram Hydrobromide 20 mg PO DAILY 07/27/22 07/27/22 History [Citalopram HBr] Cyanocobalamin (Vitamin B-12) 1,000 mcg PO DAILY 07/27/22 07/27/22 History [Vitamin B-12] Furosemide [Lasix] 20 mg PO DAILY 07/27/22 07/27/22 History Levothyroxine Sodium 100 mcg PO DAILY 07/27/22 07/27/22 History Simvastatin 80 mg PO HS 07/27/22 07/27/22 History metFORMIN HCL [Glucophage] 500 mg PO TID 07/27/22 07/27/22 History Allergies Allergy/AdvReac Type Severity Reaction Status Date / Time peanut AdvReac "Watery Verified 07/27/22 16:48 eyes" Physical Examination - Vital Signs Vital Signs: Vital Signs Temp Pulse Pulse Resp BP BP Pulse Ox 07/28/22 07:50 98.9 F 88 14 149/75 98 07/28/22 02:00 99.1 F 91 17 151/77 99 07/28/22 00:21 98.5 F 91 18 157/73 99 07/28/22 00:07 154/83 07/27/22 22:18 92 18 151/75 97 07/27/22 19:06 78 18 150/73 100 07/27/22 17:11 20 07/27/22 16:25 20 07/27/22 15:25 98.7 F 94 18 149/71 98 07/27/22 13:12 97.8 F 110 H 16 119/70 100 Intake and Output 07/27/22 07/28/22 07/28/22 22:59 06:59 14:59 Output Total 1450 Balance -1450 Output: Urine 1450 Other: Weight 55.792 kg GENERAL: The patient is lying in bed and is not in acute distress. CHEST: The heart rate is regular rate rhythm. No murmurs to auscultation. LUNG: Clear to auscultation bilaterally no wheezing noted throughout. Not labored breathing. ABDOMEN/GI: Bowel sounds present in all 4 quadrants. No tenderness to palpation throughout. NEUROLOGICAL: Higher mental function: The patient is awake, alert, oriented to self and place. She correctly chose the year with options and did not respond to month. She correctly named objects (pen, watch). Patient is following simple commands. No aphasia and no neglect. Cranial nerves: The pupils are round, equal and reactive to light and accommodation. Visual jolly are full to confrontation throughout. Extraocular movement is intact no nystagmus is noted. Facial sensation is normal to touch throughout. The facial strength is normal throughout. Hearing is normal bilaterally to hand rub. Tongue is midline and moved [id number] without any difficulty. No dysarthria is noted. Shoulder shrug is normal bilaterally. Motor: Gait is slow but not swaying toward one side or other (walking independently). The strength is 5 over 5 throughout. Normal tone and bulk. She had mild resting tremor of the right hand. Cerebellum: Normal finger to nose bilaterally. Sensation: Sensation is normal to touch throughout. Reflexes (right/left): 2+ throughout except ankles are 1+ bilaterally. Plantars are mute bilaterally. Results - Laboratory Findings CBC and BMP: 07/27/22 15:28 07/27/22 15:28 Abnormal Lab Findings: Abnormal Labs 07/27/22 07/27/22 07/27/22 15:28 15:28 15:28 Neutrophils # 8.1 H Chloride 96 L BUN 19 H Creatinine 1.09 H Glucose 150 H POC Glucose (mg/dL) Plasma Lactic Acid Mark Urine Ketones 2+ H Urine Blood Small H 07/27/22 07/27/22 07/27/22 15:28 16:54 20:30 Neutrophils # Chloride BUN Creatinine Glucose POC Glucose (mg/dL) 160 H Plasma Lactic Acid Mark 7.8 H* 4.7 H* Urine Ketones Urine Blood 07/27/22 07/28/22 23:00 07:45 Neutrophils # Chloride BUN Creatinine Glucose POC Glucose (mg/dL) 177 H Plasma Lactic Acid Mark 2.4 H* Urine Ketones Urine Blood Assessment and Plan Assessment: Altered mental status with reported bowel incontinence (patient does not recall event) and : Seems concerning for seizure Cognitive impairment/dementia (reported for years and mentation has been worsening) Resting tremor of the right upper extremity is concerning for Parkinson's disease Hypertension Up with Shantel him Plan: I ordered a routine EEG and MRI of the brain seizure protocol I will not place the patient on any seizure medications since this is first episode. Unless EEG shows any epileptiform discharges or seizure or the MRI is suggestive of a mass or lastly of the patient has another seizure Ordered TSH, vitamin B-12, folate Every [address] on seizure precaution and pads. For her suspicion for Parkinson's disease started on Sinement 25-100 1 tab tid ( 07, 12, 17) and will assess if any improvement with medication. Recommended detailed cognitive assessment as outpatient. Will defer the rest of medical management to the primary team. Upon discharge, the patient needs to follow-up with neurologist as outpatient within 1-2 weeks. The plan is discussed with primary team. Thank you for the consultation. Morro Meyer M.D. Neuro-Hospitalist Time with Patient: Greater than 30
[2022-07-28] MEDS: CARBIDOPA-LEVODOPA 25-100 MG 1 EACH TAB PO SCH ×2 (11:21→16:50)
[2022-07-28 11:29] LABS: Glucose,Whole Blood 153 mg/dL (70-110)
--- NOTE | 2022-07-28 14:14 | MR ---
EXAMINATION TYPE: MR brain wo/w con DATE OF EXAM: 07/28/2022 COMPARISON: CT brain from yesterday HISTORY: No prior, seizure, history of dementia TECHNIQUE: Multiplanar, multisequence images of the brain and brainstem is performed without and with IV contras t, utilizing 5.5 mL intravenous Gadavist . FINDINGS: Diffusion weighted images demonstrate no evidence of a recent infarct or other diffusion ab normality. There is mild to moderate ventricular and sulcal prominence. There are multifocal and con fluent areas of T2 hyperintensity seen throughout the white matter bilaterally. Lesions are nonspecif ic in appearance and distribution. T2 coronal weighted images show hippocampal gyri to appear symmetr ic and felt within normal limits. Midline structures demonstrate normal morphology. The craniocervical junction appears within normal limits. Thinning of the corpus callosum is present. Post contrast images demonstrate no abnormal enha ncement. The dural venous sinuses appear patent. The visualized sinuses are clear and the globes are intact. IMPRESSION: [id number] diffuse cerebral atrophy and moderate to advanced chronic small vessel i schemic change. No suspicious enhancement seen.
--- NOTE | 2022-07-28 15:47 | P.PN ---
Subjective Progress Note Date: 07/28/22 The patient is a 77-year-old female with type 2 dm and dementia who was brought into the emergency room accompanied by her for worsening confusion and fecal incontience. In the ED she underwent an extensive evaluation. CT brain in the emergency room revealed cerebral atrophy and chronic small vessel ischemia with no acute abnormalities. EKG revealed sinus a cardiac 102 bpm with non- specific ST/T-wave changes. Chest x-ray was unremarkable. Laboratory evaluation was remarkable for a lactic acid of 7.8, BUN was 19 creatinine 1.09 glucose 150. She was placed in observation for further monitoring. She was seen by neurology who is concern for possible Parkinson's disease and she was started on Sinemet. She underwent MRI brain which showed small vessel chronic changes. Sh e underwent an EEG which was normal. She continued to improve. Patient seen and examined at bedside. No family is present. She denies any headache, lightheadedness, dizziness. General: nontoxic, no distress, appears at stated age Derm: warm, dry Head: atraumatic, normocephalic, symmetric Eyes: EOMI, no lid lag, anicteric sclera Mouth: no lip lesion, mucus membranes moist Cardiovascular: S1S2 reg, no murmur, positive posterior tibial pulse bilateral, Lungs: CTA bilateral, no rhonchi, no rales , no accessory muscle use Abdominal: soft, nontender to palpation, no guarding, no appreciable o rganomegaly Ext: no gross muscle atrophy, no edema, no contractures Neuro: CN II-XI grossly intact, no focal neuro deficits Psych: Alert, oriented to person, place, year, appropriate affect Assessment/plan: Acute delerium on dementia possible seizure- less likely with normal MRI and EEG, due to first episode no aniteleptic drugs at this time Possible parkinsons disease vs Parkinsonism - Sinement started by neurology - monitor overnight for symptoms. DM II - glucophage at home - SSI - follow BS Hypothyroidism - TSH pending - synthroid Home in AM Attempted to call twice and no answer Objective - Vital Signs Vital signs: Vital Signs Temp 98.9 F 07/28/22 07:50 Pulse 88 07/28/22 07:50 Resp 14 07/28/22 07:50 BP 149/75 07/28/22 07:50 Pulse Ox 98 07/28/22 07:50 FiO2 Intake & Output 07/27/22 07/28/22 07/28/22 18:59 06:59 18:59 Output Total 1450 Balance -1450 Weight 55.792 kg 55.792 kg Output: Urine 1450 - Labs CBC & Chem 7: 07/27/22 15:28 07/27/22 15:28 Labs: Abnormal Lab Results - Last 24 Hours (Table) 07/27/22 07/27/22 07/27/22 Range/Units 15:28 15:28 15:28 Neutrophils # 8.1 H (1.3-7.7) k/uL Chloride 96 L (98-107) mmol/L BUN 19 H (7-17) mg/dL Creatinine 1.09 H (0.52-1.04) mg/dL Glucose 150 H (74-99) mg/dL POC Glucose (mg/dL) (70-110) mg/dL Plasma Lactic Acid Mark (0.7-2.0) mmol/L Urine Ketones 2+ H (Negative) Urine Blood Small H (Negative) 07/27/22 07/27/22 07/27/22 Range/Units 15:28 16:54 20:30 Neutrophils # (1.3-7.7) k/uL Chloride (98-107) mmol/L BUN (7-17) mg/dL Creatinine (0.52-1.04) mg/dL Glucose (74-99) mg/dL POC Glucose (mg/dL) 160 H (70-110) mg/dL Plasma Lactic Acid Mark 7.8 H* 4.7 H* (0.7-2.0) mmol/L Urine Ketones (Negative) Urine Blood (Negative) 07/27/22 07/28/22 07/28/22 Range/Units 23:00 07:45 11:28 Neutrophils # (1.3-7.7) k/uL Chloride (98-107) mmol/L BUN (7-17) mg/dL Creatinine (0.52-1.04) mg/dL Glucose (74-99) mg/dL POC Glucose (mg/dL) 177 H 153 H (70-110) mg/dL Plasma Lactic Acid Mark 2.4 H* (0.7-2.0) mmol/L Urine Ketones (Negative) Urine Blood (Negative)
[2022-07-28 16:58] LABS: Glucose,Whole Blood 231 mg/dL (70-110)
[2022-07-28] MEDS ORDERED: ATORVASTATIN 40 MG TAB PO SCH (21:00)
[2022-07-28 21:13] LABS: Glucose,Whole Blood 212 mg/dL (70-110)
--- NOTE | 2022-07-28 23:54 | EEG ---
ELECTROENCEPHALOGRAM REPORT CLINICAL HISTORY: This is a 77-year-old woman, who presented because of confusion and bowel incontinence. The video EEG is obtained to evaluate for seizure epileptiform activity. RELEVANT MEDICATION: The patient is not on any antiepileptic drugs. EEG TYPE: A routine 21-channel EEG is performed with video using the 10/20 electrode placement system. DESCRIPTION: Wakefulness is only obtained. During awake state, the background consists of low-to- moderate voltage of 9-10 hertz activity. There is no physiological sleep architecture seen. There is no focal slowing. INTERICTAL AND ICTAL: None. ACTIVATION PROCEDURE: Photic stimulation did not evoke a posterior driving response. There is no abnormality during the photic stimulation. Hyperventilation was not performed. CLINICAL INTERPRETATION: This is a normal routine EEG. There is no focal slowing, epileptiform discharges, or seizure on the EEG. Clinical correlation is recommended FLAKITA / GRISELDA: [id number] / MTDD
[2022-07-29] MEDS: LEVOTHYROXINE 100 MCG TAB PO SCH (06:10)
[2022-07-29 07:18] LABS: Glucose,Whole Blood 127 mg/dL (70-110)
[2022-07-29 08:16] VITALS: BP 131/78; PULSE 65; RESP 18; TEMP 98.4
[2022-07-29] MEDS: INSULIN ASPART (NovoLOG) 100 UNIT/ML VIAL SQ SCH (08:48)
[2022-07-29] MEDS: ASPIRIN 81 MG PO SCH (08:53)
[2022-07-29] MEDS: CYANOCOBALAMIN 500 MCG TAB PO SCH (08:53)
[2022-07-29] MEDS: ARIPiprazole 5 MG TAB PO SCH (08:54)
[2022-07-29] MEDS: CALCIUM CARB-VIT D 500 MG-5 MCG TAB PO SCH (08:54)
[2022-07-29] MEDS: CARBIDOPA-LEVODOPA 25-100 MG 1 EACH TAB PO SCH (08:54)
[2022-07-29] MEDS: HEPARIN SODIUM,PORCINE/PF 5,000 UNIT/0.5 ML SYRINGE SQ SCH (08:54)
[2022-07-29] MEDS ORDERED: FAMOTIDINE 20 MG TAB PO SCH (09:00)
--- NOTE | 2022-07-29 11:55 | P.DS ---
Providers Date of admission: 07/27/22 21:31 Expected date of discharge: 07/29/22 Attending physician: Suzanne Merino MD Consults: 07/27/22 21:31 Consult Physician Routine Consulting Provider: Morro Meyer Consult Reason/Comments: Altered mental status Do you want consulting provider notified?: Yes Primary care physician: Beatris Killian MD Hospital Course: Discharge Diagnosis: Posisble sieuzre- first episode, no need for Antieleptic drug at this time per neurology Probable Parkinson's disease Acute delerium [facility] dementia DM II Hypothyroidism Hospital Course: The patient is a 77-year-old female with type 2 dm and dementia who was brought into the emergency room accompanied by her for worsening confusion and fecal incontience. In the ED she underwent an extensive evaluation. CT brain in the emergency room revealed cerebral atrophy and chronic small vessel ischemia with no acute abnormalities. EKG revealed sinus a cardiac 102 bpm with non- specific ST/T-wave changes. Chest x-ray was unremarkable. Laboratory evaluation was remarkable for a lactic acid of 7.8, BUN was 19 creatinine 1.09 glucose 150. She was placed in observation for further monitoring. She was seen by neurology who is concern for possible Parkinson's disease and she was started on Sinemet. She underwent MRI brain which showed small vessel chronic changes. She underwent an EEG which was normal. She continued to improve. She was determined stable for discharge. Follow-up: Dr. Lala, Dr. Nunez for neurology in 1-2 weeks, [facility]. Patient seen and examined at bedside. No pain, FERGUSON, nuasea, no complaints currently. Vital signs reviewed and stable. General: nontoxic, no distress, appears at stated age Derm: warm, dry Head: atraumatic, normocephalic, symmetric Eyes: EOMI, no lid lag, anicteric sclera Mouth: no lip lesion, mucus membranes moist Cardiovascular: S1S2 reg, no murmur, positive posterior tibial pulse bilateral, Lungs: Decreased bs bilateral, no rhonchi, no rales , no accessory muscle use Abdominal: soft, nontender to palpation, no guarding, no appreciable organomegaly Ext: no gross muscle atrophy, no edema, no contractures Neuro: CN II-XI grossly intact, no focal neuro deficits Psych: Alert, oriented to place, situation, and year, appropriate affect A total of 25 minutes of time were spent preparing this complex discharge summary. Patient was discharged on 07/29/22. Patient Condition at Discharge: Stable Plan - Discharge Summary Discharge Rx Participant: No New Discharge Prescriptions: New Carbidopa-Levodopa 25-100 mg [Sinemet 25-100 mg] 1 each PO TID@0700,1200,1800 #90 tab Continue Cyanocobalamin (Vitamin B-12) [Vitamin B-12] 1,000 mcg PO DAILY metFORMIN HCL [Glucophage] 500 mg PO TID Levothyroxine Sodium 100 mcg PO DAILY Furosemide [Lasix] 20 mg PO DAILY Alendronate Sodium 70 mg PO CALABRESE Calcium Citrate/Vitamin D3 [Citracal + D Maximum Caplet] 1 tab PO DAILY Acetaminophen Tab [Tylenol] 1,000 mg PO Q6H PRN PRN Reason: Pain Citalopram Hydrobromide [Citalopram HBr] 20 mg PO DAILY ARIPiprazole 5 mg PO DAILY Simvastatin 80 mg PO HS Aspirin EC [Ecotrin Low Dose] 81 mg PO DAILY Discharge Medication List ARIPiprazole 5 mg PO DAILY 07/27/22 [History] Acetaminophen Tab [Tylenol] 1,000 mg PO Q6H PRN 07/27/22 [History] Alendronate Sodium 70 mg PO CALABRESE 07/27/22 [History] Aspirin EC [Ecotrin Low Dose] 81 mg PO DAILY 07/27/22 [History] Calcium Citrate/Vitamin D3 [Citracal + D Maximum Caplet] 1 tab PO DAILY 07/27/22 [History] Citalopram Hydrobromide [Citalopram HBr] 20 mg PO DAILY 07/27/22 [History] Cyanocobalamin (Vitamin B-12) [Vitamin B-12] 1,000 mcg PO DAILY 07/27/22 [History] Furosemide [Lasix] 20 mg PO DAILY 07/27/22 [History] Levothyroxine Sodium 100 mcg PO DAILY 07/27/22 [History] Simvastatin 80 mg PO HS 07/27/22 [History] metFORMIN HCL [Glucophage] 500 mg PO TID 07/27/22 [History] Carbidopa-Levodopa 25-100 mg [Sinemet 25-100 mg] 1 each PO TID@0700,1200,1800 #90 tab 07/29/22 [Rx] Follow up Appointment(s)/Referral(s): Robin Nunez MD [REFERRING] - 1 Week (Office will call you with appointment) Daniel Lala MD [REFERRING] - 1-2 Days (Please call office Monday for your appointment. Dr. Hinson Office number is [phone].) [facility] Visiting Nurse, [NON-STAFF] - (Agency will contact you to set up a schedule.) Patient Instructions/Handouts: Seizure/Epilepsy Discharge Instructions & Follow-Up, Parkinson Disease (DC), Type 2 Diabetes in the Older Adult (DC) Activity/Diet/Wound Care/Special Instructions: Activity: as tolerated Diet: Carb consistent Special Instructions: Please make a neurology appointment for further work-up into your possible parkinson's disease Discharge Disposition: HOME SELF-CARE
== END 2022-07-29 11:18 | disposition home or self-care (01) ==
LOC: EC 13:05 → 4SSUR 21:31
PROVIDERS: ADMIT Internal Medicine; ATTEND Internal Medicine
DX: F05 Delirium due to known physiological condition (principal); E87.2 Acidosis; E11.9 Type 2 diabetes mellitus without complications; E78.5 Hyperlipidemia, unspecified; I10 Essential (primary) hypertension; E03.9 Hypothyroidism, unspecified; F32.A Depression, unspecified; F03.90 Unspecified dementia, unspecified severity, without behavioral disturbance, psychotic disturbance, mood disturbance, and anxiety; Z79.82 Long term (current) use of aspirin; Z79.84 Long term (current) use of oral hypoglycemic drugs; Z79.890 Hormone replacement therapy; Z79.899 Other long term (current) drug therapy
CPT/HCPCS: 96372 ×2; 96361; 96365; 99285; 36415; 95816; 93005; 97116; 97162; 97530; 97166; 80053; 84443; 82607; 82140; 82746; 83605 ×2; 84484; 85025; 85610; 85730; 81001; 80306; 71046; 70450; 70553; G0378 ×3; J0696; J1644 ×2; A9585

== ENCOUNTER → 2023-07-18 | Outpatient (CLI) | payer MEDICARE ==
--- NOTE | 2023-07-18 21:34 | BD ---
EXAMINATION TYPE: Axial Bone Density DATE OF EXAM: 07/18/2023 CLINICAL HISTORY: 78 years old Female. ICD-10 CODE: M81.0 Osteoporosis Height: 58 Weight: 127.5 FRAX RISK QUESTIONS: Alcohol (3 or more units per day): no Family History (Parent hip fracture): no Glucocorticoids (More than 3mos): no History of Fracture in Adulthood: no Secondary Osteoporosis: 1. Type 1 Diabetes: no 2. Hyperthyroidism: no 3. Menopause before 45: no 4. Malnutrition: no 5. Chronic liver disease: no Rheumatoid Arthritis: no Current Tobacco Use: no RISK FACTORS HISTORY OF: Hip Fracture (Right/Left): no Spine Fracture: no History of Wrist Fracture: Lt Wrist When: Teenager Surgery to Spine/Hip(right/left)/Wrist (right/left): Left Wrist Family History of Osteoporosis: no Active: no Diet low in dairy products/other sources of calcium: yes Postmenopausal woman: yes Take estrogen and/or progesterone medications: no Lost more than 2 inches in height since high school: no Frequent falls: no Poor Health: no Hyperparathyroidism: no Adrenal Insufficiency: no MEDICATIONS: Prednisone or other steroids: no Thyroid Medications: Levothyroxine Which medication: past 10 years Osteoporosis Medications: yes, not sure of name Additional Medications: Cholesterol Meds, Vit D, Calcium Additional History: EXAM MEASUREMENTS: Bone mineral densitometry was performed using the [employer] System. Bone mineral density as measured about the Lumbar spine is: ----- L1-L4(G/cm2): 1.164 T Score Values are as follows: ----- L1: -1.1 ----- L2: -0.4 ----- L3: 0.4 ----- L4: 0.2 ----- L1-L4: -0.1 Z Score Values are as follows: ----- L1: 0.9 ----- L2: 1.7 ----- L3: 2.5 ----- L4: 2.2 ----- L1-L4: 1.9 Bone mineral density has: increased 8.8 % since study of: 01/04/2021 Bone mineral density about the R hip (g/cm2): 0.803 Bone mineral density about the L hip (g/cm2) 0.815 T Score values are as follows: -----R Neck: -2.6 -----L Neck: -2.6 -----R Total: -1.6 -----L Total: -1.5 Z Score values are as follows: -----R Neck: -0.3 -----L Neck: -0.4 -----R Total: -1.6 -----L Total: -1.5 Bone mineral density has: increased 2.8 % since study of: 01/04/2021 FRAX%s: The graph provided illustrates a 20.6% chance for a major osteoporotic fx and a 7.5% chance f or the hips probability for fx in 10 years time. IMPRESSION: Osteoporosis (T Score less than -2.5). There is increased fracture risk and therapy is usually indicated based on age. Re-Screen 1-2 years. NOTE: T-SCORE=SD OF THE YOUNG ADULT MEAN.
--- NOTE | 2023-07-19 16:40 | MM ---
Reason for Exam: Screening (asymptomatic). Last mammogram was performed 2 year(s) and 5 month(s) ago. Patient History: Menarche at age 14. First Full-Term at age 17. Postmenopausal. Excisional Biopsy on the Right side. Risk Values: Marcela 5 year model risk: 1.3%. NCI Lifetime model risk: 2.2%. Prior Study Comparison: 12/04/2019 Bilateral Screening Mammogram, [facility]. 02/24/2021 Bilateral Screening Mammogram, [facility]. 03/04/2021 Right Diagnostic Mammogram, [facility]. Tissue Density: The breast tissue is heterogeneously dense. This may lower the sensitivity of mammography. Findings: Analyzed By CAD. Pattern appears stable. Architectural distortion within the right breast. This appears stable from prior exam. No suspicious groups of microcalcifications, spiculated or lobular masses, architectural distortion or other secondary signs of malignancy are mammographically apparent. Overall Assessment: Benign, BI-RAD 2 Management: Screening Mammogram of both breasts in 1 year. A negative mammogram report should not preclude additional follow up of suspicious palpable abnormalities. Patient should continue monthly self breast exam. A clinical breast exam by your physician is recommended on an annual basis and results should be correlated with mammographic findings. Electronically signed and approved by: Ed Porter D.O. Radiologis
== END | disposition home or self-care (01) ==
LOC: RADMAMWWP 14:53
PROVIDERS: ATTEND Family Medicine
DX: Z12.31 Encounter for screening mammogram for malignant neoplasm of breast (principal); M81.0 Age-related osteoporosis without current pathological fracture; M85.89 Other specified disorders of bone density and structure, multiple sites; Z78.0 Asymptomatic menopausal state
CPT/HCPCS: 77063; 77067; 77080

== ENCOUNTER 2023-10-30 13:36 | Inpatient (IN) | payer MEDICARE ==
[2023-10-30] MEDS ORDERED: SODIUM CHLORIDE 0.9% 500 ML 500 ML IV STA (14:11)
--- NOTE | 2023-10-30 14:49 | XR ---
EXAMINATION TYPE: XR chest 2V DATE OF EXAM: 10/30/2023 COMPARISON: 07/27/2022 INDICATION: Syncope TECHNIQUE: Frontal and lateral views of the chest are obtained. FINDINGS: The heart size is normal. The pulmonary vasculature is normal. The lungs are clear. IMPRESSION: 1. No acute pulmonary process.
--- NOTE | 2023-10-30 14:50 | XR ---
EXAMINATION TYPE: XR Hip RT and AP Pelvis DATE OF EXAM: 10/30/2023 COMPARISON: None HISTORY: Fall, pain TECHNIQUE: 2 view right hip supplemented with an AP pelvis FINDINGS: There is a fracture of the lateral ischio ramus. Nondisplaced medial pubic ramus fracture a ppears to be present.a pubic symphysis appears intact Femoral head articulates with the acetabulum. No femoral head fracture is evident. IMPRESSION: 1. Fracture of the right medial pubic ramus and lateral Ischial ramus
[2023-10-30 14:52] LABS: Anisocytosis Slight; Basophils % (A) 0 %; Eosinophils % (A) 0 %; HCT 31.3 % (34.0-46.0); HGB 10.2 gm/dL (11.4-16.0); Lymphocytes # (A) 1.8 k/uL (1.0-4.8); Lymphocytes % (A) 19 %; MCHC 32.7 g/dL (31.0-37.0); MCV 85.6 fL (80.0-100.0); Mean Platelet Volume 8.5; Monocytes # (A) 0.3 k/uL (0-1.0); Monocytes % (A) 3 %; Neutrophils # (A) 7.1 k/uL (1.3-7.7); Neutrophils % (A) 76 %; Platelet Count 373 k/uL (150-450); RBC 3.66 m/uL (3.80-5.40); WBC 9.3 k/uL (3.8-10.6)
[2023-10-30 15:06] LABS: Partial Thromboplastin Time 22.5 sec (22.0-30.0); Prothrombin Time 11.3 sec (10.0-12.5)
--- NOTE | 2023-10-30 15:10 | ED ---
General Adult HPI - General Chief complaint: Fall Stated complaint: Syncope Time Seen by Provider: 10/30/23 13:44 Source: patient, EMS, RN notes reviewed, old records reviewed Mode of arrival: EMS Limitations: no limitations - History of Present Illness Initial comments: 78-year-old female presents with near syncopal episode, fall, head injury. Patient was at home doing dishes, she began to feel lightheaded, fell striking her head on the way down and had one episode of vomiting. She did not fully lose consciousness. She did also injure her right hip. She states she is feeling better at the time my evaluation. - Related Data Home Medications Medication Instructions Recorded Confirmed ARIPiprazole 5 mg PO DAILY 07/27/22 10/30/23 Acetaminophen Tab [Tylenol] 500 - 1,000 mg PO Q6H PRN 07/27/22 10/30/23 Alendronate Sodium 70 mg PO CALABRESE 07/27/22 10/30/23 Aspirin EC [Ecotrin Low Dose] 81 mg PO DAILY 07/27/22 10/30/23 Citalopram Hydrobromide 20 mg PO DAILY 07/27/22 10/30/23 [Citalopram HBr] Cyanocobalamin (Vitamin B-12) 1,000 mcg PO DAILY 07/27/22 10/30/23 [Vitamin B-12] Furosemide [Lasix] 20 mg PO DAILY 07/27/22 10/30/23 Levothyroxine Sodium 100 mcg PO MOTUWETHFRSA 07/27/22 10/30/23 Simvastatin [Zocor] 80 mg PO DAILY 07/27/22 10/30/23 metFORMIN HCL [Glucophage] 500 mg PO TID 07/27/22 10/30/23 Carbidopa-Levodopa 25-100 mg 1 tab PO QID 10/30/23 10/30/23 [Sinemet 25-100 mg] Allergies Allergy/AdvReac Type Severity Reaction Status Date / Time peanut AdvReac "Watery Verified 10/30/23 16:46 eyes" Review of Systems ROS Statement: Those systems with pertinent positive or pertinent negative responses have been documented in the HPI. ROS Other: All systems not noted in ROS Statement are negative. Past Medical History Past Medical History: Diabetes Mellitus, Hyperlipidemia, Hypertension, Thyroid Disorder History of Any Multi-Drug Resistant Organisms: None Reported Past Surgical History: No Surgical Hx Reported Past Anesthesia/Blood Transfusion Reactions: No Reported Reaction Past Psychological History: Depression Smoking Status: Never smoker Past Alcohol Use History: None Reported Past Drug Use History: None Reported - Past Family History Brother(s) Additional Family Medical History / Comment(s): Unable to obtain due to patient's underlying dementia General Exam Limitations: no limitations General appearance: alert, in no apparent distress Head exam: Present: normocephalic Eye exam: Present: PERRL ENT exam: Present: mucous membranes moist Neck exam: Present: normal inspection. Absent: tenderness, meningismus Respiratory exam: Present: normal lung sounds bilaterally. Absent: respiratory distress, wheezes Cardiovascular Exam: Present: regular rate, normal rhythm GI/Abdominal exam: Present: soft. Absent: distended, tenderness Extremities exam: Present: tenderness. Absent: full ROM (HEENT with range of motion of the right hip no shortening) Neurological exam: Present: alert, oriented X3, CN II-XII intact. Absent: motor sensory deficit Psychiatric exam: Present: normal affect, normal mood Skin exam: Present: warm, dry, intact Course Vital Signs 10/30/23 10/30/23 10/30/23 13:45 15:19 17:09 Temperature 98.1 F Pulse Rate 87 87 94 Respiratory 18 18 16 Rate Blood Pressure 135/59 132/64 136/76 O2 Sat by Pulse 99 96 99 Oximetry - Consultations Consultation #1: She reevaluated, resting comfortably, no request for pain medication. Medical Decision Making - Medical Decision Making Was pt. sent in by a medical professional or institution (, PA, DESIGNER ARCHITECT, urgent care, hospital, or [place] health care facility...) When possible be specific @ -No Did you speak to anyone other than the patient for history (EMS, parent, family, police, friend...)? What history was obtained from this source @ -No Did you review nursing and triage notes (agree or disagree)? Why? @ -I reviewed and agree with nursing and triage notes Were old charts reviewed (outside hosp., previous admission, EMS record, old EKG, old radiological studies, urgent care reports/EKG's, [place] health care facility records)? Report findings @ -No old charts were reviewed Differential Diagnosis (chest pain, altered mental status, abdominal pain women, abdominal pain men, vaginal bleeding, weakness, fever, dyspnea, syncope, headache, dizziness, GI bleed, back pain, seizure, CVA, palpatations, mental health, musculoskeletal)? @Differential Syncope: Valvular disease, hypertrophic cardiomyopathy, pulmonary embolism, tamponade, tachycardia, bradycardia, [place], hypovolemia, hemorrhage, dissection, anemia, intracranial hemorrhage, seizure, hypoglycemia, carbon monoxide poisoning, this is not meant to be an all-inclusive list. EKG interpreted by me (3pts min.). @ -[Sinus rhythm rate of 81, TN interval 133, QRS duration 67, QTC 398 X-rays interpreted by me (1pt min.). @ Chest x-ray negative for acute cardio pulmonary findings, x-ray of the right hip and pelvis shows a inferior and superior pubic rami fracture on the right, nondisplaced. CT interpreted by me (1pt min.). @ 2 brain negative for intracranial hemorrhage or mass effect U/S interpreted by me (1pt. min.). @ -None done What testing was considered but not performed or refused? (CT, X-rays, U/S, labs)? Why? @ -None What meds were considered but not given or refused? Why? @ -None Did you discuss the management of the patient with other professionals (professionals i.e. Dr., PA, DESIGNER ARCHITECT, lab, RT, psych nurse, social media marketing analyst, computer applications engineer, teacher, learning officer, rn case mgr)? Give summary @ -Aristeo covering for Dr. Thapa, and Dr. Villalobos Was smoking cessation discussed for >3mins.? @ -No Was critical care preformed (if so, how long)? @ -No Were there social determinants of health that impacted care today? How? (Homele ssness, low income, unemployed, alcoholism, drug addiction, transportation, low edu. Level, literacy, decrease access to med. care, group home, rehab)? @ -No Was there de-escalation of care discussed even if they declined (Discuss DNR or withdrawal of care, Hospice)? DNR status @ -No What co-morbidities impacted this encounter? (DM, HTN, Smoking, COPD, CAD, Cancer, CVA, ARF, Chemo, Hep., AIDS, mental health diagnosis, sleep apnea, morbid obesity)? @ -None Was patient admitted / discharged? Hospital course, mention meds given and route, prescriptions, significant lab abnormalities, going to OR and other pertinent info. @ -78-year-old female with near syncopal episode, fall with right hip pain. Patient has pain with range of motion to the right hip. The extremity is normal length, no rotation. X-ray shows hemogram I fracture on the right. The remainder of her workups of the fall is unremarkable. She has anemia and mild AK I as well as urinary tract infection. Patient admitted to orthopedics with medicine on consult. Undiagnosed new problem with uncertain prognosis? @ -No Drug Therapy requiring intensive monitoring for toxicity (Heparin, Nitro, Insulin, Cardizem)? @ -No Were any procedures done? @ -No Diagnosis/symptom? @ -[Fall, pubic rami fracture, near-syncope Acute, or Chronic, or Acute on Chronic? @ -[Acute Uncomplicated (without systemic symptoms) or Complicated (systemic symptoms)? @ -default Side effects of treatment? @ -No Exacerbation, Progression, or Severe Exacerbation? @ -No] Poses a threat to life or bodily function? How? (Chest pain, [place], [place], pneumonia, PE, COPD, DKA, ARF, appy, cholecystitis, CVA, Diverticulitis, Homicidal, Suicidal, threat to staff... and all critical care pts) @ -Moderate Risk - Lab Data Result diagrams: 10/30/23 14:16 10/30/23 14:16 Lab Results 10/30/23 10/30/23 10/30/23 Range/Units 14:16 14:16 14:16 WBC 9.3 (3.8-10.6) k/uL RBC 3.66 L (3.80-5.40) m/uL Hgb 10.2 L (11.4-16.0) gm/dL Hct 31.3 L (34.0-46.0) % MCV 85.6 (80.0-100.0) fL MCH 28.0 (25.0-35.0) pg MCHC 32.7 (31.0-37.0) g/dL RDW 16.0 H (11.5-15.5) % Plt Count 373 (150-450) k/uL MPV 8.5 Neutrophils % 76 % Lymphocytes % 19 % Monocytes % 3 % Eosinophils % 0 % Basophils % 0 % Neutrophils # 7.1 (1.3-7.7) k/uL Lymphocytes # 1.8 (1.0-4.8) k/uL Monocytes # 0.3 (0-1.0) k/uL Eosinophils # 0.0 (0-0.7) k/uL Basophils # 0.0 (0-0.2) k/uL Anisocytosis Slight PT 11.3 (10.0-12.5) sec INR 1.0 (<1.2) APTT 22.5 (22.0-30.0) sec Sodium (137-145) mmol/L Potassium (3.5-5.1) mmol/L Chloride (98-107) mmol/L Carbon Dioxide (22-30) mmol/L Anion Gap mmol/L BUN (7-17) mg/dL Creatinine (0.52-1.04) mg/dL Est GFR (CKD-EPI)AfAm (>60 ml/min/1.73 sqM) Est GFR (CKD-EPI)NonAf (>60 ml/min/1.73 sqM) Glucose (74-99) mg/dL Calcium (8.4-10.2) mg/dL Magnesium (1.6-2.3) mg/dL Total Bilirubin (0.2-1.3) mg/dL AST (14-36) U/L ALT (4-34) U/L Alkaline Phosphatase (38-126) U/L Troponin I (0.000-0.034) ng/mL Total Protein (6.3-8.2) g/dL Albumin (3.5-5.0) g/dL Urine Color Colorless Urine Appearance Cloudy H (Clear) Urine pH 5.0 (5.0-8.0) Ur Specific [place] 1.011 (1.001-1.035) Urine Protein Negative (Negative) Urine Glucose (UA) Negative (Negative) Urine Ketones Negative (Negative) Urine Blood Small H (Negative) Urine Nitrite Negative (Negative) Urine Bilirubin Negative (Negative) Urine Urobilinogen <2.0 (<2.0) mg/dL Ur Leukocyte Esterase Large H (Negative) Urine RBC 12 H (0-5) /hpf Urine WBC 112 H (0-5) /hpf Urine WBC Clumps Moderate H (None) /hpf Ur Squamous Epith Cells 1 (0-4) /hpf Urine Bacteria Rare H (None) /hpf Hyaline Casts 11 H (0-2) /lpf Urine Mucus Rare H (None) /hpf 10/30/23 10/30/23 Range/Units 14:16 14:16 WBC (3.8-10.6) k/uL RBC (3.80-5.40) m/uL Hgb (11.4-16.0) gm/dL Hct (34.0-46.0) % MCV (80.0-100.0) fL MCH (25.0-35.0) pg MCHC (31.0-37.0) g/dL RDW (11.5-15.5) % Plt Count (150-450) k/uL MPV Neutrophils % % Lymphocytes % % Monocytes % % Eosinophils % % Basophils % % Neutrophils # (1.3-7.7) k/uL Lymphocytes # (1.0-4.8) k/uL Monocytes # (0-1.0) k/uL Eosinophils # (0-0.7) k/uL Basophils # (0-0.2) k/uL Anisocytosis PT (10.0-12.5) sec INR (<1.2) APTT (22.0-30.0) sec Sodium 135 L (137-145) mmol/L Potassium 3.6 (3.5-5.1) mmol/L Chloride 93 L (98-107) mmol/L Carbon Dioxide 23 (22-30) mmol/L Anion Gap 19 mmol/L BUN 23 H (7-17) mg/dL Creatinine 1.41 H (0.52-1.04) mg/dL Est GFR (CKD-EPI)AfAm 41 (>60 ml/min/1.73 sqM) Est GFR (CKD-EPI)NonAf 36 (>60 ml/min/1.73 sqM) Glucose 168 H (74-99) mg/dL Calcium 9.5 (8.4-10.2) mg/dL Magnesium 1.0 L (1.6-2.3) mg/dL Total Bilirubin 0.9 (0.2-1.3) mg/dL AST 26 (14-36) U/L ALT 20 (4-34) U/L Alkaline Phosphatase 86 (38-126) U/L Troponin I <0.012 (0.000-0.034) ng/mL Total Protein 7.6 (6.3-8.2) g/dL Albumin 3.9 (3.5-5.0) g/dL Urine Color Urine Appearance (Clear) Urine pH (5.0-8.0) Ur Specific [place] (1.001-1.035) Urine Protein (Negative) Urine Glucose (UA) (Negative) Urine Ketones (Negative) Urine Blood (Negative) Urine Nitrite (Negative) Urine Bilirubin (Negative) Urine Urobilinogen (<2.0) mg/dL Ur Leukocyte Esterase (Negative) Urine RBC (0-5) /hpf Urine WBC (0-5) /hpf Urine WBC Clumps (None) /hpf Ur Squamous Epith Cells (0-4) /hpf Urine Bacteria (None) /hpf Hyaline Casts (0-2) /lpf Urine Mucus (None) /hpf Disposition Clinical Impression: Fall, Pre-syncope, Pubic ramus fracture Disposition: ADMITTED IP TO THIS [facility] Condition: Stable Is patient prescribed a controlled substance at d/c from ED?: No Referrals: Daniel Lala MD [Primary Care Provider] - 1-2 days Time of Disposition: 17:30
[2023-10-30 15:30] LABS: ALT 20 U/L (4-34); AST 26 U/L (14-36); African American GFR (CKD) 41 (>60 ml/min/1.73 sqM); Albumin 3.9 g/dL (3.5-5.0); Alkaline Phosphatase 86 U/L (38-126); Anion Gap 19 mmol/L; Blood Urea Nitrogen 23 mg/dL (7-17); Calcium 9.5 mg/dL (8.4-10.2); Carbon Dioxide 23 mmol/L (22-30); Chloride 93 mmol/L (98-107); Glucose 168 mg/dL (74-99); Non-African American GFR(CKD) 36 (>60 ml/min/1.73 sqM); Potassium 3.6 mmol/L (3.5-5.1); Sodium 135 mmol/L (137-145); Total Bilirubin 0.9 mg/dL (0.2-1.3); Total Protein 7.6 g/dL (6.3-8.2)
--- NOTE | 2023-10-30 16:36 | CT ---
EXAMINATION TYPE: CT brain cspine wo con CT DLP: 1265.6 mGycm, Automated exposure control for dose reduction was used. DATE OF EXAM: 10/30/2023 2:41 PM COMPARISON: None. CLINICAL INDICATION:Female, 78 years old with history of fall; Fall, denies hx of falls, LOC TECHNIQUE: Brain: Multiple axial CT images of the brain were obtained without IV contrast. Cspine: Axial CT images from the skull base to the inferior aspect of T2 we obtained without intraven ous contrast. Coronal and sagittal reformatted images were also reviewed. FINDINGS: Brain: Extra-axial spaces: No abnormal extra-axial fluid collections. Ventricular system: Appear dilated in proportion to the degree of cerebral atrophy. Cerebral parenchyma: No increased attenuation to suggest acute intraparenchymal hemorrhage. The gra y-white matter interface appears maintained. Moderate generalized brain atrophy. Scattered hypoatte nuating areas are seen within the cerebral white matter, nonspecific but most often seen with chronic microvascular ischemic changes; moderate in degree. Cerebellum: No acute abnormality. Mass effect: No evidence of mass effect or midline shift. Intracranial vasculature: Atherosclerotic calcifications of the larger arteries near the skull base. Soft tissues: Normal. Visualized orbits: Orbital contents appear grossly intact. Calvarium/osseous structures: No evidence of calvarial fracture. Paranasal sinuses and mastoid air cells: Mild/moderate mucosal thickening throughout the paranasal si nuses. Possible postoperative changes of the maxillary sinuses and right nasal cavity. MRI is more sensitive for detecting acute processes such as infarct, and may be considered if clinica lly warranted. Cervical spine: Fracture: None seen. Osseous structures, spinal canal/neural foramina: Mild multilevel degenerative disc disease and facet arthrosis without critical canal or foraminal stenosis. Vertebral alignment: No traumatic malalignment. Neck soft tissues: No acute finding.. Calcifications noted involving the cervical carotid arteries, a nd along aortic arch Other: Lung apices show mild scarring and senescent changes. No acute infiltrate or pneumothorax. IMPRESSION: CT head: 1. No CT evidence of an acute intracranial abnormality. 2. Atrophy and chronic microvascular ischemic white matter changes. CT cervical spine: 1. No evidence of cervical spine fracture or traumatic malalignment. 2. Mild cervical spondylosis.
[2023-10-30 17:22] LABS: Appearance,Urine Cloudy (Clear); Bacteria,Urine Rare /hpf; Bilirubin,Urine Negative (Negative); Blood,Urine Small (Negative); Color,Urine Colorless; Glucose,Urine (UA) Negative (Negative); Hyaline Casts,Urine 11 /lpf (0-2); Ketones,Urine Negative (Negative); Leukocyte Esterase,Urine Large (Negative); Mucus,Urine Rare /hpf; Nitrite,Urine Negative (Negative); Protein,Urine Negative (Negative); RBC,Urine 12 /hpf (0-5); Specific Gravity,Urine 1.011 (1.001-1.035); Squamous Epithelial Cell,Urine 1 /hpf (0-4); Urobilinogen,Urine <2.0 mg/dL (<2.0); WBC,Urine 112 /hpf (0-5)
[2023-10-30] MEDS ORDERED: HYDROmorphone 0.5 MG/0.5 ML SYRINGE IVP STA (17:38)
[2023-10-30] MEDS ORDERED: cefTRIAXone IN SWFI 1,000 MG/10 ML SYRINGE IVP STA (18:14)
[2023-10-30] MEDS ORDERED: HYDROmorphone 0.5 MG/0.5 ML SYRINGE IVP PRN (18:15)
[2023-10-30] MEDS ORDERED: NALOXONE 0.4 MG/ML 1 ML VIAL IV PRN (18:15)
[2023-10-30] MEDS: SODIUM CHLORIDE 0.9% 1,000 ML IV SCH (18:38)
--- NOTE | 2023-10-30 20:48 | P.CONS ---
History of Present Illness - Reason for Consult Consult date: 10/30/23 - History of Present Illness Patient is a 78-year-old female with a PMH of dementia, type II DM, hypothyroidism, hyperlipidemia, and Parkinson's disease who presents to the emergency room after a fall. Patient states she was at home washing her dishes when she suddenly developed lightheadedness. She walked to her living room and fell to the ground hitting her head. Denies losing consciousness. Reports immediate right hip pain and being unable to stand up as a result. The patient's who did not witness the episode subsequently contacted EMS. Reports ongoing right hip pain with movement. Denies numbness or tingling of the RLE. Per EMS report, the patient had endorsed syncope and had a single episode of vomiting shortly after regaining consciousness. She denies prior history of such symptoms or loss of consciousness. Denies history of seizure. Denies urinary complaints, chest discomfort, shortness of breath, palpitations, lower extremity pain. Pelvis x-ray revealed a fracture of the right medial pubic ramus and lateral ischial ramus. Head/cervical spine CT was unremarkable. EKG reveals sinus rhythm at 81 bpm with T-wave flattening in leads V2 to V4 with no other ST/T- wave changes noted as reviewed by me. Laboratory evaluation revealed a hemoglobin of 10.2 (previously 11.4 in 07/2022), BUN 23, creatinine 1.4 (previously 1.1 in 02/2023), magnesium 1.0, repeat UA consistent with UTI. ED documentation reviewed and case discussed with ED provider. Review of systems: Pertinent positives and negatives as discussed in HPI, a complete review of systems was performed and all other systems are negative. Physical examination: Vital signs reviewed General: non toxic, no distress, appears at stated age, normal weight Derm: no unusual rashes/lesions, warm Head: atraumatic, normocephalic, symmetric Eyes: EOMI, no lid lag, anicteric sclera, pupils equal round reactive to light ENT: Nose and ears atraumatic Neck: No cervical lymphadenopathy, trachea midline, supple Mouth: no lip lesion, mucus membranes moist Cardiovascular: S1S2 reg, no murmur, positive dorsalis pedis pulse bilateral, no edema Lungs: CTA bilateral, no rhonchi, no rales, no accessory muscle use Abdominal: soft, nontender to palpation, no guarding Ext: muscle strength 5 out of 5 in all extremities grossly except RLE due to right hip pain with proximal strength 2/5 and distal strength 5/5, no gross muscle atrophy, no contractures Neuro: CN II-XI grossly intact, no gross focal neuro deficits Psych: Alert, oriented, appropriate affect Assessment: Syncope, unclear etiology, may be due to UTI FROILAN Normocytic anemia, somewhat similar to baseline Hypomagnesemia Chronic conditions: Type II DM, hypothyroidism, Parkinson's disease, hyp erlipidemia, dementia Imaging: Pelvis x-ray revealed a fracture of the right medial pubic ramus and lateral ischial ramus. Head/cervical spine CT was unremarkable. EKG reveals sinus rhythm at 81 bpm with T-wave flattening in leads V2 to V4 with no other ST/T- wave changes noted as reviewed by me. Data Review: Laboratory evaluation revealed a hemoglobin of 10.2 (previously 11.4 in 07/2022), BUN 23, creatinine 1.4 (previously 1.1 in 02/2023), repeat UA consistent with UTI. Plan: Continue with ceftriaxone and follow-up urine cultures Obtain echocardiogram Cardiac monitoring Fall precautions Continue IV fluids with normal saline 75 mL/h Insulin sliding scale blood glucose monitoring Continue with remaining home medications Replace magnesium and monitor Preoperative evaluation: The patient reports that she takes a 2 hour long walk with her every other day at the park without difficulty. She also ambulates without assistive devices and reports being in otherwise good health. Denies exertional dyspnea or chest discomfort. Independent in all her ADLs at home. Obtain repeat BMP in a.m. and if patient's FROILAN improving, she is optimized for surgical repair of pelvis fracture with no additional modifiable risk factors noted. Past Medical History Past Medical History: Diabetes Mellitus, Hyperlipidemia, Hypertension, Thyroid Disorder History of Any Multi-Drug Resistant Organisms: None Reported Past Surgical History: No Surgical Hx Reported Past Anesthesia/Blood Transfusion Reactions: No Reported Reaction Past Psychological History: Depression Smoking Status: Never smoker Past Alcohol Use History: None Reported Past Drug Use History: None Reported - Past Family History Brother(s) Additional Family Medical History / Comment(s): Unable to obtain due to patient's underlying dementia Medications and Allergies Home Medications Medication Instructions Recorded Confirmed Type ARIPiprazole 5 mg PO DAILY 07/27/22 10/30/23 History Acetaminophen Tab [Tylenol] 500 - 1,000 mg PO Q6H PRN 07/27/22 10/30/23 History Alendronate Sodium 70 mg PO CALABRESE 07/27/22 10/30/23 History Aspirin EC [Ecotrin Low Dose] 81 mg PO DAILY 07/27/22 10/30/23 History Citalopram Hydrobromide 20 mg PO DAILY 07/27/22 10/30/23 History [Citalopram HBr] Cyanocobalamin (Vitamin B-12) 1,000 mcg PO DAILY 07/27/22 10/30/23 History [Vitamin B-12] Furosemide [Lasix] 20 mg PO DAILY 07/27/22 10/30/23 History Levothyroxine Sodium 100 mcg PO MOTUWETHFRSA 07/27/22 10/30/23 History Simvastatin [Zocor] 80 mg PO DAILY 07/27/22 10/30/23 History metFORMIN HCL [Glucophage] 500 mg PO TID 07/27/22 10/30/23 History Carbidopa-Levodopa 25-100 mg 1 tab PO QID 10/30/23 10/30/23 History [Sinemet 25-100 mg] Allergies Allergy/AdvReac Type Severity Reaction Status Date / Time peanut AdvReac "Watery Verified 10/30/23 16:46 eyes" Physical Exam Vitals: Vital Signs Temp Pulse Resp BP Pulse Ox 10/30/23 20:13 87 18 133/63 94 L 10/30/23 19:09 88 16 128/83 97 10/30/23 17:09 94 16 136/76 99 10/30/23 15:19 87 18 132/64 96 10/30/23 13:45 98.1 F 87 18 135/59 99 Intake and Output 10/30/23 10/30/23 10/30/23 06:59 14:59 22:59 Other: Weight 52.163 kg Results CBC & Chem 7: 10/30/23 14:16 10/30/23 14:16 Labs: Abnormal Lab Results - Last 24 Hours (Table) 10/30/23 10/30/23 10/30/23 Range/Units 14:16 14:16 14:16 RBC 3.66 L (3.80-5.40) m/uL Hgb 10.2 L (11.4-16.0) gm/dL Hct 31.3 L (34.0-46.0) % RDW 16.0 H (11.5-15.5) % Sodium 135 L (137-145) mmol/L Chloride 93 L (98-107) mmol/L BUN 23 H (7-17) mg/dL Creatinine 1.41 H (0.52-1.04) mg/dL Glucose 168 H (74-99) mg/dL Magnesium 1.0 L (1.6-2.3) mg/dL Urine Appearance Cloudy H (Clear) Urine Blood Small H (Negative) Ur Leukocyte Esterase Large H (Negative) Urine RBC 12 H (0-5) /hpf Urine WBC 112 H (0-5) /hpf Urine WBC Clumps Moderate H (None) /hpf Urine Bacteria Rare H (None) /hpf Hyaline Casts 11 H (0-2) /lpf Urine Mucus Rare H (None) /hpf
[2023-10-30] MEDS: HYDROcodone/APAP 5-325MG 1 EACH TAB PO PRN (22:00)
[2023-10-30] MEDS: MAGNESIUM SULFATE-D5W PMX 1 GM in DEXTROSE/WATER 1 100ML.BAG IVPB SCH (23:26)
[2023-10-31] MEDS: MAGNESIUM SULFATE-D5W PMX 1 GM in DEXTROSE/WATER 1 100ML.BAG IVPB SCH (00:35)
[2023-10-31 06:10] LABS: African American GFR (CKD) 63 (>60 ml/min/1.73 sqM); Anion Gap 8 mmol/L; Blood Urea Nitrogen 17 mg/dL (7-17); Calcium 8.2 mg/dL (8.4-10.2); Carbon Dioxide 30 mmol/L (22-30); Chloride 98 mmol/L (98-107); Glucose 94 mg/dL (74-99); Non-African American GFR(CKD) 55 (>60 ml/min/1.73 sqM); Sodium 136 mmol/L (137-145)
[2023-10-31] MEDS: LEVOTHYROXINE 100 MCG TAB PO SCH (06:30)
[2023-10-31 06:33] LABS: Potassium 3.5 mmol/L (3.5-5.1)
[2023-10-31 07:18] LABS: Glucose,Whole Blood 102 mg/dL (70-110)
[2023-10-31] MEDS: INSULIN ASPART (NovoLOG) 100 UNIT/ML VIAL SQ SCH ×4 (07:50→22:19)
[2023-10-31] MEDS: CARBIDOPA-LEVODOPA 25-100 MG 1 EACH TAB PO SCH ×4 (08:27→22:19)
[2023-10-31] MEDS: ATORVASTATIN 40 MG TAB PO SCH (08:27)
[2023-10-31] MEDS: ARIPiprazole 5 MG TAB PO SCH (08:27)
[2023-10-31] MEDS: HYDROcodone/APAP 5-325MG 1 EACH TAB PO PRN ×2 (08:27→20:25)
[2023-10-31] MEDS: CITALOPRAM HYDROBROMIDE 20 MG TAB PO SCH (08:27)
[2023-10-31] MEDS: SODIUM CHLORIDE 0.9% 1,000 ML IV SCH (08:28)
[2023-10-31] MEDS: ASPIRIN 81 MG PO SCH (08:28)
[2023-10-31] MEDS ORDERED: SENNOSIDES 8.6 MG TAB PO PRN (10:06)
[2023-10-31 11:22] LABS: Glucose,Whole Blood 145 mg/dL (70-110)
--- NOTE | 2023-10-31 11:27 | P.HPOR ---
History of Present Illness H&P Date: 10/31/23 Chief Complaint: right lower extremity pain patient is a 78-year-old female who presented to the emergency department yesterday after having a syncopal episode at home with fall. Patient does have a past medical history significant for dementia, type 2 diabetes, hypothyr oidism, hyperlipidemia , Parkinson's disease. patient was seen at bedside this morning lying semirecumbent position on 4S unit. Patient states yesterday when she was at home doing the dishes she began to fill lightheaded and dizzy and fell to the ground. Patient says she does hit her head. Patient does not recall if she lost consciousness. Patient says thereafter she was having pain to the right leg and was able to get up under her own power. Patient says her was at home and help her. Patient says she has had increased pain to the right hip with movement of the right lower extremity. Patient denies any numbness or tingling in the right lower extremity. Patient denies any previous history of syncopal episodes or seizures. Patient says normally she walks every day. Patient says she does not use a walker or cane at baseline. patient denies any previous orthopedic surgical history. Patient denies chest pain, fever, shortness breath, nausea, change in vision, loss/bladder control. Past Medical History Past Medical History: Diabetes Mellitus, Hyperlipidemia, Hypertension, Thyroid Disorder History of Any Multi-Drug Resistant Organisms: None Reported Past Surgical History: No Surgical Hx Reported Past Anesthesia/Blood Transfusion Reactions: No Reported Reaction Past Psychological History: Depression Smoking Status: Never smoker Past Alcohol Use History: None Reported Past Drug Use History: None Reported - Past Family History Brother(s) Additional Family Medical History / Comment(s): Unable to obtain due to patient's underlying dementia Medications and Allergies Home Medications Medication Instructions Recorded Confirmed Type ARIPiprazole 5 mg PO DAILY 07/27/22 10/30/23 History Acetaminophen Tab [Tylenol] 500 - 1,000 mg PO Q6H PRN 07/27/22 10/30/23 History Alendronate Sodium 70 mg PO CALABRESE 07/27/22 10/30/23 History Aspirin EC [Ecotrin Low Dose] 81 mg PO DAILY 07/27/22 10/30/23 History Citalopram Hydrobromide 20 mg PO DAILY 07/27/22 10/30/23 History [Citalopram HBr] Cyanocobalamin (Vitamin B-12) 1,000 mcg PO DAILY 07/27/22 10/30/23 History [Vitamin B-12] Furosemide [Lasix] 20 mg PO DAILY 07/27/22 10/30/23 History Levothyroxine Sodium 100 mcg PO MOTUWETHFRSA 07/27/22 10/30/23 History Simvastatin [Zocor] 80 mg PO DAILY 07/27/22 10/30/23 History metFORMIN HCL [Glucophage] 500 mg PO TID 07/27/22 10/30/23 History Carbidopa-Levodopa 25-100 mg 1 tab PO QID 10/30/23 10/30/23 History [Sinemet 25-100 mg] Allergies Allergy/AdvReac Type Severity Reaction Status Date / Time peanut AdvReac "Watery Verified 10/30/23 16:46 eyes" Physical Examination inspection: negative for any open fractures, significant erythema/ecchymosis open wounds. Sensation: equal, symmetric, bilaterally intact throughout the upper and lower extremities Palpation: moderate TTP over right posterior sacral region. fair amount TTP diffusely throughout right hip. NTTP throughout rest of exam. Range of motion: patient does have some limited range of motion in the right hip and right knee in flexion/extension secondary to referred pain to the right hip. patient has full range of motion throughout right ankle and exam. Patient has full range of motion throughout bilateral upper extremities and left lower extremity on exam. Motor: 4-/5 and resisted right knee flexion/extension and right hip flexion/extension. 4+/5 in all other major motor groups Neurovascular: radial pulses intact, 2+ bilaterally. Refill under 3 seconds in digits of UE Special tests: negative clonus bilaterally. log roll maneuver to the right does produce some pain To the right hip Results - Labs Labs: Abnormal Lab Results - Last 24 Hours (Table) 10/30/23 10/30/23 10/30/23 Range/Units 14:16 14:16 14:16 RBC 3.66 L (3.80-5.40) m/uL Hgb 10.2 L (11.4-16.0) gm/dL Hct 31.3 L (34.0-46.0) % RDW 16.0 H (11.5-15.5) % Sodium 135 L (137-145) mmol/L Chloride 93 L (98-107) mmol/L BUN 23 H (7-17) mg/dL Creatinine 1.41 H (0.52-1.04) mg/dL Glucose 168 H (74-99) mg/dL Calcium (8.4-10.2) mg/dL Magnesium 1.0 L (1.6-2.3) mg/dL Urine Appearance Cloudy H (Clear) Urine Blood Small H (Negative) Ur Leukocyte Esterase Large H (Negative) Urine RBC 12 H (0-5) /hpf Urine WBC 112 H (0-5) /hpf Urine WBC Clumps Moderate H (None) /hpf Urine Bacteria Rare H (None) /hpf Hyaline Casts 11 H (0-2) /lpf Urine Mucus Rare H (None) /hpf 10/31/23 Range/Units 05:07 RBC (3.80-5.40) m/uL Hgb (11.4-16.0) gm/dL Hct (34.0-46.0) % RDW (11.5-15.5) % Sodium 136 L (137-145) mmol/L Chloride (98-107) mmol/L BUN (7-17) mg/dL Creatinine (0.52-1.04) mg/dL Glucose (74-99) mg/dL Calcium 8.2 L (8.4-10.2) mg/dL Magnesium (1.6-2.3) mg/dL Urine Appearance (Clear) Urine Blood (Negative) Ur Leukocyte Esterase (Negative) Urine RBC (0-5) /hpf Urine WBC (0-5) /hpf Urine WBC Clumps (None) /hpf Urine Bacteria (None) /hpf Hyaline Casts (0-2) /lpf Urine Mucus (None) /hpf H & H 10/30/23 Range/Units 14:16 Hgb 10.2 L (11.4-16.0) gm/dL Hct 31.3 L (34.0-46.0) % Coagulation 10/30/23 Range/Units 14:16 INR 1.0 (<1.2) Result Diagrams: 10/30/23 14:16 10/31/23 05:07 - Diagnostic results Hip x-ray: report reviewed, image reviewed ( x-ray of the pelvis does show fracture of the right medial pubic ramus and lateral and ischial ramus. negative for any hip fractures or acetabular fractures. Negative for dislocation.) Assessment and Plan Assessment: x-ray of the pelvis does show fracture of the right medial pubic ramus and lateral and ischial ramus. negative for any hip fractures or acetabular fractures. Negative for dislocation. Plan: 1. right hip pain - x-ray of the pelvis does show fracture of the right medial pubic ramus and lateral and ischial ramus. negative for any hip fractures or acetabular fractures. Negative for dislocation. I did discuss the findings of the imaging and exam with my attending, Dr. Thapa. at this time we're recommending conservative measures with the use of ice and pain medication. at this time we're not recommending any emergent/urgent orthopedic surgical intervention. appreciate medical management and other specialty recommendations. weight-bear as tolerated with walker and assistance. we will continue to follow patient during stay in Hospital. 2. appreciate medical management 3. Pain management - Goldonna 4. GI prophylaxis - senna 5. DVT prophylaxis - aspirin 6. PT/OT - weightbearing as tolerated with walker and assistance 7. Encourage incentive spirometer use Time with Patient: Less than 30
--- NOTE | 2023-10-31 11:50 | CA ---
Transthoracic Echo Report Name: Joan Granados Age: 78 Gender: F : 1945 Exam Date: 10/31/2023 10:31 Exam Location: [facility] Ht (in): 59 Wt (lb): 115 Ordering Physician: Suzanne Merino MD Attending/Referring Phys: [employer] Manager Zackary Turpin Procedure CPT: Indications: Syncope Cardiac Hx: Technical Quality: Fair Contrast 1: Total Dose (mL): Contrast 2: Total Dose (mL): MEASUREMENTS (Male / Female) Normal Values 2D ECHO LV Diastolic Diameter PLAX 4.4 cm 4.2 - 5.9 / 3.9 - 5.3 cm LV Systolic Diameter PLAX 3.0 cm IVS Diastolic Thickness 1.0 cm 0.6 - 1.0 / 0.6 - 0.9 cm LVPW Diastolic Thickness 1.0 cm 0.6 - 1.0 / 0.6 - 0.9 cm LV Relative Wall Thickness 0.4 RV Internal Dim ED PLAX 2.7 cm LVOT Diameter 1.9 cm Aortic Root Diameter 2.6 cm LA Systolic Diameter LX 2.5 cm 3.0 - 4.0 / 2.7 - 3.8 cm LV Diastolic Volume MOD BP 26.7 cm??? 67 - 155 / 56 - 104 cm??? LV Systolic Volume MOD BP 9.2 cm??? 22 - 58 / 19 - 49 cm??? LV Ejection Fraction MOD BP 65.4 % >= 55 % LV Cardiac Index MOD BP 988.6 cm???/min???m??? LV Diastolic Volume MOD 4C 27.9 cm??? LV Systolic Volume MOD 4C 9.6 cm??? LV Ejection Fraction MOD 4C 65.7 % LV Cardiac Index MOD 4C 1037.2 cm???/min???m??? LV Diastolic Length 4C 5.9 cm LV Systolic Length 4C 4.6 cm LV Diastolic Volume MOD 2C 22.4 cm??? LV Systolic Volume MOD 2C 8.3 cm??? LV Ejection Fraction MOD 2C 63.1 % LV Cardiac Index MOD 2C 801.1 cm???/min???m??? LV Diastolic Length 2C 5.2 cm LV Systolic Length 2C 4.3 cm LA Volume 30.4 cm??? 18 - 58 / 22 - 52 cm??? LA Volume Index 20.5 cm???/m??? 16 - 28 cm???/m??? DOPPLER AV Peak Velocity 197.6 cm/s AV Peak Gradient 15.6 mmHg LVOT Peak Velocity 126.6 cm/s LVOT Peak Gradient 6.4 mmHg LVOT Velocity Time Integral 26.7 cm LVOT Stroke Volume 79.6 cm??? LVOT Stroke Volume Index 54.6 ml/m??? LVOT Cardiac Index 4510.5 cm???/min???m??? AV Area Cont Eq pk 1.9 cm??? MV Peak Velocity 115.9 cm/s MV Peak Gradient 5.4 mmHg MV Mean Velocity 60.5 cm/s MV Mean Gradient 1.8 mmHg MV Velocity Time Integral 37.1 cm Mitral E Point Velocity 104.7 cm/s Mitral A Point Velocity 117.7 cm/s Mitral E to A Ratio 0.9 MV Deceleration Time 204.0 ms MV E' Velocity 8.2 cm/s Mitral E to MV E' Ratio 12.7 TR Peak Velocity 328.4 cm/s TR Peak Gradient 43.1 mmHg Right Ventricular Systolic Press 48.1 mmHg PV Peak Velocity 99.5 cm/s PV Peak Gradient 4.0 mmHg FINDINGS Left Ventricle Normal LV size and wall thickness. Left ventricular ejection fraction is estimated at 55-60 %.normal left ventricular wall motion. Right Ventricle Normal right ventricular size. RVSP= 48mmHg Right Atrium Normal right atrial size. Left Atrium Normal left atrial size. LA volume index= 21ml/m2 Mitral Valve Structurally normal mitral valve. Mild MR. Aortic Valve Trileaflet aortic valve. No aortic valve stenosis or regurgitation. Tricuspid Valve Structurally normal tricuspid valve. Mild tricuspid regurgitation. Pulmonic Valve Pulmonic valve not well visualized. No PI. Pericardium Normal pericardium.echo free space anterior to the right ventricle likely represents a fat pad. Aorta Normal size aortic root. CONCLUSIONS 1. Normal left ventricular size and systolic function 2. Mild mitral and tricuspid regurgitation with moderate pulmonary hypertension Previewed by: Dr. Beatris Hamlin MD (Electronically Signed) Final Date: 31 October 2023 11:49
--- NOTE | 2023-10-31 13:44 | P.PN ---
Subjective Progress Note Date: 10/31/23 Subjective: Patient seen and examined at bedside. No acute events overnight. Still having right-sided pelvic pain. Denies any urinary complaints whatsoever. She claims that she had a fall secondary to syncopal episode. This was the first time she had a syncopal episode. She denies any recent poor oral intake, chest pain, palpitations, shortness of breath. Pertinent positives and negatives as discussed above, a complete review of systems was performed and all other systems are negative. Vitals Signs Reviewed. General: non toxic, no distress, appears at stated age, normal weight Derm: no unusual rashes/lesions, warm Head: atraumatic, normocephalic, symmetric Eyes: EOMI, no lid lag, anicteric sclera, pupils equal round reactive to light ENT: Nose and ears atraumatic Neck: No cervical lymphadenopathy, trachea midline, supple Mouth: no lip lesion, mucus membranes moist Cardiovascular: S1S2 reg, no murmur, positive dorsalis pedis pulse bilateral, no edema Lungs: CTA bilateral, no rhonchi, no rales, no accessory muscle use Abdominal: soft, nontender to palpation, no guarding Ext: muscle strength 5 out of 5 in all extremities grossly except RLE due to right hip pain with proximal strength 2/5 and distal strength 5/5, no gross muscle atrophy, no contractures Neuro: CN II-XI grossly intact, no gross focal neuro deficits Psych: Alert, oriented, appropriate affect Data Reviewed Today: Pertinent Labs: Sodium 136, creatinine 0.98, blood sugars range between 94-145, magnesium 2.2 Imaging: Echocardiogram report reviewed, shows normal LV size and systolic funct ion, mild mitral and tricuspid regurgitation with moderate pulmonary hypertension, no aortic valve stenosis or regurgitation. Assessment and Plan: [Active:] Syncope and fall FROILAN, resolved Hypomagnesemia, resolved Traumatic pelvic fracture Parkinson's disease - echo within normal limits - continue tele - likely has orthostasis 2/2 her PD meds - Continue to hold diuretics -Orthopedic note reviewed., Recommended conservative management -Patient control with oral [place] as needed, ibuprofen as needed, monitor for respiratory depression -IV fluids discontinued, encourage oral intake -PT/OT Type 2 diabetes -Sliding scale insulin, monitor for hypoglycemia Dyslipidemia Depression Hypothyroidism -Continue home medications Thank you for allowing us to participate in the care of this pleasant patient. Do not hesitate to contact us with questions. Someone can be reached from the [facility] hospitalist group all hours of the day at [phone] or via perfect serve. Objective - Vital Signs Vital signs: Vital Signs Temp 99.0 F 10/31/23 07:12 Pulse 83 10/31/23 07:12 Resp 18 10/31/23 07:12 BP 134/65 10/31/23 07:12 Pulse Ox 97 10/31/23 07:12 FiO2 Intake & Output 10/30/23 10/31/23 10/31/23 18:59 06:59 18:59 Output Total 1775 Balance -1775 Weight 52.163 kg Output: Gastric Drainage 1150 Urine 625 Other: Voiding Method Indwelling Catheter Indwelling Catheter - Labs CBC & Chem 7: 10/30/23 14:16 10/31/23 05:07 Labs: Abnormal Lab Results - Last 24 Hours (Table) 10/30/23 10/30/23 10/30/23 Range/Units 14:16 14:16 14:16 RBC 3.66 L (3.80-5.40) m/uL Hgb 10.2 L (11.4-16.0) gm/dL Hct 31.3 L (34.0-46.0) % RDW 16.0 H (11.5-15.5) % Sodium 135 L (137-145) mmol/L Chloride 93 L (98-107) mmol/L BUN 23 H (7-17) mg/dL Creatinine 1.41 H (0.52-1.04) mg/dL Glucose 168 H (74-99) mg/dL POC Glucose (mg/dL) (70-110) mg/dL Calcium (8.4-10.2) mg/dL Magnesium 1.0 L (1.6-2.3) mg/dL Urine Appearance Cloudy H (Clear) Urine Blood Small H (Negative) Ur Leukocyte Esterase Large H (Negative) Urine RBC 12 H (0-5) /hpf Urine WBC 112 H (0-5) /hpf Urine WBC Clumps Moderate H (None) /hpf Urine Bacteria Rare H (None) /hpf Hyaline Casts 11 H (0-2) /lpf Urine Mucus Rare H (None) /hpf 10/31/23 10/31/23 Range/Units 05:07 11:21 RBC (3.80-5.40) m/uL Hgb (11.4-16.0) gm/dL Hct (34.0-46.0) % RDW (11.5-15.5) % Sodium 136 L (137-145) mmol/L Chloride (98-107) mmol/L BUN (7-17) mg/dL Creatinine (0.52-1.04) mg/dL Glucose (74-99) mg/dL POC Glucose (mg/dL) 145 H (70-110) mg/dL Calcium 8.2 L (8.4-10.2) mg/dL Magnesium (1.6-2.3) mg/dL Urine Appearance (Clear) Urine Blood (Negative) Ur Leukocyte Esterase (Negative) Urine RBC (0-5) /hpf Urine WBC (0-5) /hpf Urine WBC Clumps (None) /hpf Urine Bacteria (None) /hpf Hyaline Casts (0-2) /lpf Urine Mucus (None) /hpf
[2023-10-31 16:32] LABS: Glucose,Whole Blood 162 mg/dL (70-110)
[2023-10-31 19:26] LABS: Glucose,Whole Blood 246 mg/dL (70-110)
[2023-11-01 06:08] LABS: Glucose,Whole Blood 108 mg/dL (70-110)
[2023-11-01] MEDS: HYDROcodone/APAP 5-325MG 1 EACH TAB PO PRN (06:29)
[2023-11-01] MEDS: INSULIN ASPART (NovoLOG) 100 UNIT/ML VIAL SQ SCH ×4 (06:30→20:23)
[2023-11-01] MEDS: LEVOTHYROXINE 100 MCG TAB PO SCH (06:30)
[2023-11-01] MEDS: ATORVASTATIN 40 MG TAB PO SCH (10:05)
[2023-11-01] MEDS: ARIPiprazole 5 MG TAB PO SCH (10:05)
[2023-11-01] MEDS: ASPIRIN 81 MG PO SCH (10:05)
[2023-11-01] MEDS: CITALOPRAM HYDROBROMIDE 20 MG TAB PO SCH (10:05)
[2023-11-01] MEDS: CARBIDOPA-LEVODOPA 25-100 MG 1 EACH TAB PO SCH ×4 (10:05→20:22)
[2023-11-01 10:50] LABS: Glucose,Whole Blood 223 mg/dL (70-110)
--- NOTE | 2023-11-01 12:41 | P.PN ---
Subjective Progress Note Date: 11/01/23 Principal diagnosis: Right-sided pubic rami fracture Patient was evaluated today at bedside, she is resting in her hospital chair having lunch. Patient did do a little bit better with physical therapy she states today. She continues to have right-sided discomfort with weightbearing. She has no headaches, lightheadedness, chest pain, shortness of breath, nausea or vomiting, fever or chills. Urinary cath remains in place at this time. Objective - Vital Signs Vital signs: Vital Signs Temp 98.5 F 11/01/23 07:05 Pulse 70 11/01/23 07:05 Resp 17 11/01/23 07:05 BP 127/72 11/01/23 07:05 Pulse Ox 96 11/01/23 08:40 FiO2 Intake & Output 10/31/23 11/01/23 11/01/23 18:59 06:59 18:59 Output Total 400 400 Balance -400 -400 Output: Urine 400 400 Uretheral (Rodriguez) 100 Other: Voiding Method Indwelling Catheter Indwelling Catheter - Exam Inspection: negative for any open fractures, significant erythema/ecchymosis open wounds. Sensation: equal, symmetric, bilaterally intact throughout the upper and lower extremities Palpation: moderate TTP over right posterior sacral region. fair amount TTP diffusely throughout right hip. NTTP throughout rest of exam. Range of motion: patient does have some limited range of motion in the right hip and right knee in flexion/extension secondary to referred pain to the right hip. patient has full range of motion throughout right ankle and exam. Patient has full range of motion throughout bilateral upper extremities and left lower extremity on exam. Motor: 4-/5 and resisted right knee flexion/extension and right hip flexion/extension. 4+/5 in all other major motor groups Neurovascular: radial pulses intact, 2+ bilaterally. Refill under 3 seconds in digits of UE Special tests: negative clonus bilaterally. log roll maneuver to the right do es produce some pain To the right hip - Labs CBC & Chem 7: 10/30/23 14:16 10/31/23 05:07 Labs: Abnormal Lab Results - Last 24 Hours (Table) 10/31/23 10/31/23 11/01/23 Range/Units 16:30 19:24 10:47 POC Glucose (mg/dL) 162 H 246 H 223 H (70-110) mg/dL Microbiology - Last 24 Hours (Table) 10/30/23 18:38 Urine Culture - Preliminary Urine,Clean Catch Presumptive Staph aureus Assessment and Plan Assessment: Right-sided pubic rami fracture Other medical comorbidities Plan: Pain control, continue to utilize lower dose oral medication DVT prophylaxis, continue current medication Continue weight-bear as tolerated with walker Continue PT/OT Discontinue urinary catheter on 11/02/2023 Medical recommendations appreciated Discharge planning: Anticipate discharge to subacute rehab, discussed with case management obtaining authorization. Further recommendations to follow Time with Patient: Less than 30
--- NOTE | 2023-11-01 13:46 | P.PN ---
Subjective Progress Note Date: 11/01/23 Subjective: Patient seen and examined at bedside. No acute events overnight. Still having right-sided pelvic pain but improved. Denies any urinary complaints. Rodriguez catheter in place. Pertinent positives and negatives as discussed above, a complete review of systems was performed and all other systems are negative. Vitals Signs Reviewed. General: non toxic, no distress, appears at stated age, normal weight Derm: no unusual rashes/lesions, warm Head: atraumatic, normocephalic, symmetric Eyes: EOMI, no lid lag, anicteric sclera, pupils equal round reactive to light ENT: Nose and ears atraumatic Neck: No cervical lymphadenopathy, trachea midline, supple Mouth: no lip lesion, mucus membranes moist Cardiovascular: S1S2 reg, no murmur, positive dorsalis pedis pulse bilateral, no edema Lungs: CTA bilateral, no rhonchi, no rales, no accessory muscle use Abdominal: soft, nontender to palpation, no guarding Ext: muscle strength 5 out of 5 in all extremities grossly except RLE due to right hip pain with proximal strength 2/5 and distal strength 5/5, no gross muscle atrophy, no contractures Neuro: CN II-XI grossly intact, no gross focal neuro deficits Psych: Alert, oriented, appropriate affect Data Reviewed Today: Pertinent Labs: Blood sugars range between 108-246 Imaging: No new imaging Assessment and Plan: Active: Syncope and fall, likely in the setting of Parkinson's disease FROILAN, resolved Hypomagnesemia, resolved Traumatic pelvic fracture - continue tele - likely has orthostasis 2/2 her PD meds - orthostatic vitals ordered - Continue to hold diuretics -Orthopedic note reviewed., Recommended conservative management, dc to [facility] -Patient control with oral [place] as needed, IV Dilaudid as needed, monitor for respiratory depression -PT/OT Type 2 diabetes -Sliding scale insulin, monitor for hypoglycemia Dyslipidemia Depression Hypothyroidism -Continue home medications Thank you for allowing us to participate in the care of this pleasant patient. Do not hesitate to contact us with questions. Someone can be reached from the [facility] hospitalist group all hours of the day at [phone] or via perfect serve. Objective - Vital Signs Vital signs: Vital Signs Temp 98.5 F 11/01/23 07:05 Pulse 70 11/01/23 07:05 Resp 17 11/01/23 07:05 BP 127/72 11/01/23 07:05 Pulse Ox 96 11/01/23 08:40 FiO2 Intake & Output 10/31/23 11/01/23 11/01/23 18:59 06:59 18:59 Output Total 400 400 Balance -400 -400 Output: Urine 400 400 Uretheral (Rodriguez) 100 Other: Voiding Method Indwelling Catheter Indwelling Catheter - Labs CBC & Chem 7: 10/30/23 14:16 10/31/23 05:07 Labs: Abnormal Lab Results - Last 24 Hours (Table) 10/31/23 10/31/23 11/01/23 Range/Units 16:30 19:24 10:47 POC Glucose (mg/dL) 162 H 246 H 223 H (70-110) mg/dL Microbiology - Last 24 Hours (Table) 10/30/23 18:38 Urine Culture - Preliminary Urine,Clean Catch Presumptive Staph aureus
[2023-11-01 17:13] LABS: Glucose,Whole Blood 168 mg/dL (70-110)
[2023-11-01 19:21] LABS: Glucose,Whole Blood 265 mg/dL (70-110)
[2023-11-02 05:39] LABS: Glucose,Whole Blood 105 mg/dL (70-110)
[2023-11-02] MEDS: INSULIN ASPART (NovoLOG) 100 UNIT/ML VIAL SQ SCH ×2 (06:22→12:08)
[2023-11-02] MEDS: LEVOTHYROXINE 100 MCG TAB PO SCH (06:24)
[2023-11-02] MEDS: CITALOPRAM HYDROBROMIDE 20 MG TAB PO SCH (08:39)
[2023-11-02] MEDS: ASPIRIN 81 MG PO SCH (08:39)
[2023-11-02] MEDS: CARBIDOPA-LEVODOPA 25-100 MG 1 EACH TAB PO SCH ×2 (08:39→12:08)
[2023-11-02] MEDS: ATORVASTATIN 40 MG TAB PO SCH (08:39)
[2023-11-02] MEDS: ARIPiprazole 5 MG TAB PO SCH (08:39)
--- NOTE | 2023-11-02 09:57 | P.PN ---
Subjective Progress Note Date: 11/02/23 Principal diagnosis: Right-sided pubic rami fracture Patient was evaluated today at bedside, . she is resting in her hospital bed. Patient appears quite stable at this time, she does have some discomfort in the right lower extremity with ambulation. Urinary catheter was removed yesterday. She has no headaches, lightheadedness, chest pain, shortness of breath, nausea or vomiting, fever or chills. Objective - Vital Signs Vital signs: Vital Signs Temp 98.4 F 11/02/23 07:08 Pulse 82 11/02/23 07:08 Resp 20 11/02/23 07:08 BP 146/72 11/02/23 07:08 Pulse Ox 96 11/02/23 07:08 FiO2 Intake & Output 11/01/23 11/02/23 11/02/23 18:59 06:59 18:59 Output Total 200 150 Balance -200 -150 Output: Urine 200 150 Other: Voiding Method Indwelling Catheter Bedpan - Exam Inspection: negative for any open fractures, significant erythema/ecchymosis open wounds. Sensation: equal, symmetric, bilaterally intact throughout the upper and lower extremities Palpation: moderate TTP over right posterior sacral region. fair amount TTP diffusely throughout right hip. NTTP throughout rest of exam. Range of motion: patient does have some limited range of motion in the right hip and right knee in flexion/extension secondary to referred pain to the right hip. patient has full range of motion throughout right ankle and exam. Patient has full range of motion throughout bilateral upper extremities and left lower extremity on exam. Motor: 4-/5 and resisted right knee flexion/extension and right hip flexion/extension. 4+/5 in all other major motor groups Neurovascular: radial pulses intact, 2+ bilaterally. Refill under 3 seconds in digits of UE Special tests: negative clonus bilaterally. log roll maneuver to the right does produce some pain To the right hip - Labs CBC & Chem 7: 10/30/23 14:16 10/31/23 05:07 Labs: Abnormal Lab Results - Last 24 Hours (Table) 11/01/23 11/01/23 11/01/23 Range/Units 10:47 17:12 19:20 POC Glucose (mg/dL) 223 H 168 H 265 H (70-110) mg/dL Microbiology - Last 24 Hours (Table) 10/30/23 18:38 Urine Culture - Preliminary Urine,Clean Catch Presumptive Staph aureus Assessment and Plan Assessment: Right-sided pubic rami fracture Other medical comorbidities Plan: Pain control, continue to utilize lower dose oral medication DVT prophylaxis, continue current medication Continue weight-bear as tolerated with walker Continue PT/OT Medical recommendations appreciated Discharge planning: Plan for discharge to subacute rehab today Time with Patient: Less than 30
[2023-11-02] MEDS: HYDROcodone/APAP 5-325MG 1 EACH TAB PO PRN (10:51)
[2023-11-02 11:26] LABS: Glucose,Whole Blood 203 mg/dL (70-110)
--- NOTE | 2023-11-02 12:12 | P.DS ---
Providers Date of admission: 10/30/23 18:15 Expected date of discharge: 11/02/23 Attending physician: Woo Thapa DO Consults: 10/30/23 18:15 Consult Physician Routine Consulting Provider: Nara Villalobos Consult Reason/Comments: Fall, near syncope, pubic rami fracture Do you want consulting provider notified?: Yes Primary care physician: Daniel Lala MD Hospital Course: Subjective: Patient seen and examined at bedside. No acute events overnight. No urinary complaints. Rodriguez is out. No lightheadedness. Pertinent positives and negatives as discussed above, a complete review of systems was performed and all other systems are negative. Vitals Signs Reviewed. General: non toxic, no distress, appears at stated age, normal weight Derm: no unusual rashes/lesions, warm Head: atraumatic, normocephalic, symmetric Eyes: EOMI, no lid lag, anicteric sclera, pupils equal round reactive to light ENT: Nose and ears atraumatic Neck: No cervical lymphadenopathy, trachea midline, supple Mouth: no lip lesion, mucus membranes moist Cardiovascular: S1S2 reg, no murmur, positive dorsalis pedis pulse bilateral, no edema Lungs: CTA bilateral, no rhonchi, no rales, no accessory muscle use Abdominal: soft, nontender to palpation, no guarding Ext: muscle strength 5 out of 5 in all extremities grossly except RLE due to right hip pain with proximal strength 2/5 and distal strength 5/5, no gross muscle atrophy, no contractures Neuro: CN II-XI grossly intact, no gross focal neuro deficits Psych: Alert, oriented, appropriate affect Data Reviewed Today: Pertinent Labs: Blood sugars range between 105-265 Imaging: No new imaging Assessment and Plan: Syncope and fall, likely in the setting of Parkinson's disease FROILAN, resolved Hypomagnesemia, resolved Traumatic pelvic fracture - continue tele - likely has orthostasis 2/2 her PD meds - Continue to hold diuretics -Orthopedic note reviewed, dc to [facility] today -Patient control with oral [place] as needed, IV Dilaudid as needed, monitor for respiratory depression -PT/OT Type 2 diabetes -Sliding scale insulin, monitor for hypoglycemia Dyslipidemia Depression Hypothyroidism -Continue home medications Patient is medically optimized for discharge. Thank you for allowing us to participate in the care of this pleasant patient. Do not hesitate to contact us with questions. Someone can be reached from the [facility] hospitalist group all hours of the day at [phone] or via perfect serve. Patient Condition at Discharge: Stable Plan - Discharge Summary Discharge Rx Participant: No New Discharge Prescriptions: Continue Cyanocobalamin (Vitamin B-12) [Vitamin B-12] 1,000 mcg PO DAILY metFORMIN HCL [Glucophage] 500 mg PO TID Levothyroxine Sodium 100 mcg PO MOTUWETHFRSA Alendronate Sodium 70 mg PO CALABRESE Acetaminophen Tab [Tylenol] 500 - 1,000 mg PO Q6H PRN PRN Reason: Pain Citalopram Hydrobromide [Citalopram HBr] 20 mg PO DAILY ARIPiprazole 5 mg PO DAILY Simvastatin [Zocor] 80 mg PO DAILY Aspirin EC [Ecotrin Low Dose] 81 mg PO DAILY Carbidopa-Levodopa 25-100 mg [Sinemet 25-100 mg] 1 tab PO QID Discontinued Furosemide [Lasix] 20 mg PO DAILY Discharge Medication List ARIPiprazole 5 mg PO DAILY 07/27/22 [History] Acetaminophen Tab [Tylenol] 500 - 1,000 mg PO Q6H PRN 07/27/22 [History] Alendronate Sodium 70 mg PO CALABRESE 07/27/22 [History] Aspirin EC [Ecotrin Low Dose] 81 mg PO DAILY 07/27/22 [History] Citalopram Hydrobromide [Citalopram HBr] 20 mg PO DAILY 07/27/22 [History] Cyanocobalamin (Vitamin B-12) [Vitamin B-12] 1,000 mcg PO DAILY 07/27/22 [History] Levothyroxine Sodium 100 mcg PO MOTUWETHFRSA 07/27/22 [History] Simvastatin [Zocor] 80 mg PO DAILY 07/27/22 [History] metFORMIN HCL [Glucophage] 500 mg PO TID 07/27/22 [History] Carbidopa-Levodopa 25-100 mg [Sinemet 25-100 mg] 1 tab PO QID 10/30/23 [History] Follow up Appointment(s)/Referral(s): Daniel Lala MD [Primary Care Provider] - 1-2 days Arabella Huynh, [NON-STAFF] -
[2023-11-02 14:42] VITALS: BP 114/70; PULSE 87; RESP 18; TEMP 98.2
== END 2023-11-02 15:15 | DRG 683 ==
LOC: EC 13:36 → 4SSUR 18:15
PROVIDERS: ADMIT Orthopaedic Surgery Hand Surgery; ATTEND Orthopaedic Surgery Hand Surgery
DX: N17.9 Acute kidney failure, unspecified (principal); F02.83 Dementia in other diseases classified elsewhere, unspecified severity, with mood disturbance; S32.591A Other specified fracture of right pubis, initial encounter for closed fracture; W18.30XA Fall on same level, unspecified, initial encounter; Y93.G1 Activity, food preparation and clean up; I27.20 Pulmonary hypertension, unspecified; I10 Essential (primary) hypertension; E78.5 Hyperlipidemia, unspecified; G20.A1 Parkinson's disease without dyskinesia, without mention of fluctuations; F32.A Depression, unspecified; E83.42 Hypomagnesemia; E03.9 Hypothyroidism, unspecified; D64.9 Anemia, unspecified; Z79.899 Other long term (current) drug therapy; Z79.84 Long term (current) use of oral hypoglycemic drugs; Z79.82 Long term (current) use of aspirin
CPT/HCPCS: 36415; 70450; 71046; 72125; 73502; 80048; 80053; 81001; 83735; 84484; 85025; 85610; 85730; 87077; 87086; 87186; 93005; 93306; 94760; 96361; 96374; 99285

== ENCOUNTER 2024-01-04 08:53 | Inpatient (IN) | payer MEDICARE ==
[2024-01-04 09:35] LABS: Appearance,Urine Cloudy (Clear); Bacteria,Urine Occasional /hpf; Bilirubin,Urine Negative (Negative); Blood,Urine Large (Negative); Budding Yeast,Urine Moderate /hpf; Color,Urine Light Red; Glucose,Urine (UA) Negative (Negative); Ketones,Urine Trace (Negative); Leukocyte Esterase,Urine Moderate (Negative); Mucus,Urine Rare /hpf; Nitrite,Urine Negative (Negative); Protein,Urine 2+ (Negative); RBC,Urine >182 /hpf (0-5); Specific Gravity,Urine 1.013 (1.001-1.035); Squamous Epithelial Cell,Urine 2 /hpf (0-4); Urobilinogen,Urine <2.0 mg/dL (<2.0); WBC,Urine 69 /hpf (0-5)
--- NOTE | 2024-01-04 09:35 | ED ---
General Adult HPI - General Chief complaint: Altered Mental Status Stated complaint: ams Time Seen by Provider: 01/04/24 08:56 Source: patient, EMS, RN notes reviewed, old records reviewed Mode of arrival: EMS - History of Present Illness Initial comments: Patient is a 78-year-old female who presents emergency department for evaluation of worsening dementia. Has a history of prior pelvic fracture with chronic pelvic pain as well as a history of chronic left shoulder pain. Patient presents with worsening confusion. Patient's at baseline states that patient is ANO x 1 at best. He has just noticed worsening confusion and decreased appetite. Does have a history of urinary tract infections. No obvious coughing. Patient denies any chest pain or abdominal pain. No other acute complaints at this time. No nausea or diarrhea noted by patient's . Presents for increased confusion. No known recent falls. She is not on blood thinners. Patient's helps with HPI as patient is a poor historian due to her dementia. - Related Data Home Medications Medication Instructions Recorded Confirmed ARIPiprazole 5 mg PO DAILY 07/27/22 01/04/24 Acetaminophen Tab [Tylenol] 500 mg PO Q6H PRN 07/27/22 01/04/24 Alendronate Sodium 70 mg PO CALABRESE 07/27/22 01/04/24 Aspirin EC [Ecotrin Low Dose] 81 mg PO DAILY 07/27/22 01/04/24 Citalopram Hydrobromide 20 mg PO DAILY 07/27/22 01/04/24 [Citalopram HBr] Cyanocobalamin (Vitamin B-12) 1,000 mcg PO DAILY 07/27/22 01/04/24 [Vitamin B-12] Levothyroxine Sodium 100 mcg PO DAILY 07/27/22 01/04/24 Simvastatin [Zocor] 80 mg PO DAILY 07/27/22 01/04/24 metFORMIN HCL [Glucophage] 500 mg PO TID 07/27/22 01/04/24 Carbidopa-Levodopa 25-100 mg 1 tab PO QID 10/30/23 01/04/24 [Sinemet 25-100 mg] Ferrous Sulfate [Feosol] 325 mg PO DAILY 01/04/24 01/04/24 Furosemide [Lasix] 20 mg PO DAILY 01/04/24 01/04/24 Allergies Allergy/AdvReac Type Severity Reaction Status Date / Time peanut AdvReac "Watery Verified 01/04/24 11:08 eyes" Review of Systems ROS Statement: Those systems with pertinent positive or pertinent negative responses have been documented in the HPI. ROS Other: All systems not noted in ROS Statement are negative. Past Medical History Past Medical History: Dementia, Diabetes Mellitus, Hyperlipidemia, Hypertension, Thyroid Disorder History of Any Multi-Drug Resistant Organisms: None Reported Past Surgical History: Unable to Obtain Past Anesthesia/Blood Transfusion Reactions: No Reported Reaction Past Psychological History: Depression Smoking Status: Never smoker Past Alcohol Use History: None Reported Past Drug Use History: None Reported - Past Family History Brother(s) Additional Family Medical History / Comment(s): Unable to obtain due to patient's underlying dementia General Exam - General Exam Comments Initial Comments: General: Appears in no acute distress. HEAD: Normal with no signs of head trauma. EYES: PERRLA, EOMI, conjunctiva normal, no discharge. Pulls are 3 mm and equal bilaterally. ENT: Hearing grossly intact, normal oropharynx. RESPIRATORY: Clear breath sounds bilaterally. No wheezes, rales, or rhonchi. C/V: Regular rate and rhythm. S1 and S2 auscultated, peripheral pulses 2+ and intact throughout ABD: Abd is soft, nontender, nondistended EXT: Normal range of motion, no obvious deformity. Mild left upper extremity edema with mild left shoulder pain which is chronic per patient's . No midline spine tenderness. Pelvis is stable with mild tenderness. SKIN: No rashes or lesions observed on exposed skin. NEURO: Alert and oriented x 0-1 which is her baseline. No focal deficits. Course Vital Signs 01/04/24 01/04/24 01/04/24 08:55 09:49 10:35 Temperature 99.6 F Pulse Rate 98 96 96 Respiratory 17 20 17 Rate Blood Pressure 132/63 120/93 O2 Sat by Pulse 98 100 97 Oximetry 01/04/24 01/04/24 01/04/24 11:03 12:13 12:20 Temperature 97.6 F 98.8 F Pulse Rate 96 93 Respiratory 18 16 Rate Blood Pressure 122/58 111/54 O2 Sat by Pulse 97 97 Oximetry 01/04/24 13:49 Temperature 99.1 F Pulse Rate 96 Respiratory 17 Rate Blood Pressure 121/59 O2 Sat by Pulse 98 Oximetry Medical Decision Making - Medical Decision Making Was pt. sent in by a medical professional or institution (, PA, PATIENT CARE, urgent care, hospital, or penitentiary...) When possible be specific @ -No Did you speak to anyone other than the patient for history (EMS, parent, family, police, friend...)? What history was obtained from this source @ -Patient's is the primary historian for the patient. Did you review nursing and triage notes (agree or disagree)? Why? @ -I reviewed and agree with nursing and triage notes Were old charts reviewed (outside hosp., previous admission, EMS record, old EKG, old radiological studies, urgent care reports/EKG's, penitentiary records)? Report findings @ -Old charts reviewed Differential Diagnosis (chest pain, altered mental status, abdominal pain women, abdominal pain men, vaginal bleeding, weakness, fever, dyspnea, syncope, headache, dizziness, GI bleed, back pain, seizure, CVA, palpatations, mental health, musculoskeletal)? @ -Differential Weakness: Hypoglycemia, shock, sepsis, hyponatremia, anemia, infection, CA, ETOH, adverse medicine reaction, overdose, stroke, this is not meant to be an all-inclusive list. Differential Altered Mental Status: Hypoglycemia, DKA, hypercapnia, ETOH, overdose, CO poisoning, trauma, myxedema coma, HTN encephalopathy, infection, encephalitis, psychosis, intercranial hemorrhage, hepatic encephalopathy, meningitis, CVA, this is not meant to be an all-inclusive list EKG interpreted by me (3pts min.). @ -As above X-rays interpreted by me (1pt min.). @ -Chest x-ray, pelvis x-ray, shoulder x-ray remarkable for the chronic pelvic fractures with somewhat increased displacement of the superior pubic ramus fracture. Patient's left shoulder x-ray reveals possible degeneration or impaction injury of the left shoulder, with some possible bony fragments. Clinical correlation recommended. CT interpreted by me (1pt min.). @ -CT brain reveals degenerative changes without any obvious acute process. U/S interpreted by me (1pt. min.). @ -None done What testing was considered but not performed or refused? (CT, X-rays, U/S, labs)? Why? @ -None What meds were considered but not given or refused? Why? @ -None Did you discuss the management of the patient with other professionals (professionals i.e. , PA, PATIENT CARE, lab, RT, psych nurse, social human services assistants, ldr rn, teacher, administrative services officer, case reviewer)? Give summary @ -Discussed with Dr. Jeniffer ríos the admission. Was smoking cessation discussed for >3mins.? @ -No Was critical care preformed (if so, how long)? @ -No Were there social determinants of health that impacted care today? How? (Homelessness, low income, unemployed, alcoholism, drug addiction, transportation, low edu. Level, literacy, decrease access to med. care, alf, rehab)? @ -No Was there de-escalation of care discussed even if they declined (Discuss DNR or withdrawal of care, Hospice)? DNR status @ -No What co-morbidities impacted this encounter? (DM, HTN, Smoking, COPD, CAD, Cancer, CVA, ARF, Chemo, Hep., AIDS, mental health diagnosis, sleep apnea, morbid obesity)? @ -Dementia Was patient admitted / discharged? Hospital course, mention meds given and route, prescriptions, significant lab abnormalities, going to OR and other pertinent info. @ -Patient presents with chronic findings as well as somewhat increased altered mental status. Will obtain generalized workup. Patient's in agreement with this plan. Vital signs are within acceptable limits. Patient will be given a 1 L fluid bolus. EKG shows no signs of acute ischemia.Patient's imaging remarkable for negative CT imaging the brain however patient does have acute findings of the left shoulder which could represent impaction injury or possible bony fragments. Patient has been having pain for weeks to months since her previous fall which resulted in the pubic rami fracture. Pubic rami fracture slightly more displaced but otherwise unchanged. No acute findings otherwise on imaging. Patient's laboratory studies reveal a UTI, chronic anemia, slightly elevated troponin likely secondary to FROILAN. Troponin is 0.251. Patient has an elevated BUN of 62 and creatinine of 2.93. EKG shows no signs of acute ischemia. Patient has a leukocytosis of 19.3. At this time, patient will be admitted to the hospital. I updated patient, however was unable to locate the patient's at this time. She was started on Rocephin for her UTI, we will continue with maintenance fluids at this time for her FORILAN. Will continue to monitor her. She is resting comfortably. She was placed in a sling. Orthopedics was consulted for the left shoulder finding. I spoke with the admitting physician, Dr. Swift who accepted the admission. Undiagnosed new problem with uncertain prognosis? @ -No Drug Therapy requiring intensive monitoring for toxicity (Heparin, Nitro, Insulin, Cardizem)? @ -No Were any procedures done? @ -No Diagnosis/symptom? @ -Elevated troponin, UTI, FROILAN Acute, or Chronic, or Acute on Chronic? @ -Acute Uncomplicated (without systemic symptoms) or Complicated (systemic symptoms)? @ -Complicated Side effects of treatment? @ -None Exacerbation, Progression, or Severe Exacerbation] @ -No Poses a threat to life or bodily function? @ -Yes Diagnosis/symptom? @ -Anemia, left shoulder injury, pubic rami fracture Acute, or Chronic, or Acute on Chronic? @ -Acute on chronic Uncomplicated (without systemic symptoms) or Complicated (systemic symptoms)? @ -Uncomplicated Side effects of treatment? @ -None Exacerbation, Progression, or Severe Exacerbation] @ -No Poses a threat to life or bodily function? @ -Unlikely - Lab Data Result diagrams: 01/04/24 09:09 01/04/24 09:09 Lab Results 01/04/24 01/04/24 01/04/24 Range/Units 09:09 09:09 09:09 WBC 19.3 H (3.8-10.6) k/uL RBC 2.73 L (3.80-5.40) m/uL Hgb 7.4 L (11.4-16.0) gm/dL Hct 22.6 L (34.0-46.0) % MCV 82.9 (80.0-100.0) fL MCH 27.1 (25.0-35.0) pg MCHC 32.6 (31.0-37.0) g/dL RDW 16.2 H (11.5-15.5) % Plt Count 375 (150-450) k/uL MPV 7.4 Neutrophils % 93 % Lymphocytes % 2 % Monocytes % 4 % Eosinophils % 1 % Basophils % 0 % Neutrophils # 18.0 H (1.3-7.7) k/uL Lymphocytes # 0.4 L (1.0-4.8) k/uL Monocytes # 0.7 (0-1.0) k/uL Eosinophils # 0.1 (0-0.7) k/uL Basophils # 0.0 (0-0.2) k/uL Hypochromasia Slight Anisocytosis Slight PT 10.7 (10.0-12.5) sec INR 1.0 (<1.2) APTT 21.9 L (22.0-30.0) sec Sodium (137-145) mmol/L Potassium (3.5-5.1) mmol/L Chloride (98-107) mmol/L Carbon Dioxide (22-30) mmol/L Anion Gap mmol/L BUN (7-17) mg/dL Creatinine (0.52-1.04) mg/dL Est GFR (CKD-EPI)AfAm (>60 ml/min/1.73 sqM) Est GFR (CKD-EPI)NonAf (>60 ml/min/1.73 sqM) Glucose (74-99) mg/dL Plasma Lactic Acid Mark (0.7-2.0) mmol/L Calcium (8.4-10.2) mg/dL Total Bilirubin (0.2-1.3) mg/dL AST (14-36) U/L ALT (4-34) U/L Alkaline Phosphatase (38-126) U/L Ammonia (<30) umol/L Troponin I (0.000-0.034) ng/mL Total Protein (6.3-8.2) g/dL Albumin (3.5-5.0) g/dL Urine Color Light Red Urine Appearance Cloudy H (Clear) Urine pH 6.0 (5.0-8.0) Ur Specific [place] 1.013 (1.001-1.035) Urine Protein 2+ H (Negative) Urine Glucose (UA) Negative (Negative) Urine Ketones Trace H (Negative) Urine Blood Large H (Negative) Urine Nitrite Negative (Negative) Urine Bilirubin Negative (Negative) Urine Urobilinogen <2.0 (<2.0) mg/dL Ur Leukocyte Esterase Moderate H (Negative) Urine RBC >182 H (0-5) /hpf Urine WBC 69 H (0-5) /hpf Urine WBC Clumps Moderate H (None) /hpf Ur Squamous Epith Cells 2 (0-4) /hpf Urine Bacteria Occasional H (None) /hpf Urine Mucus Rare H (None) /hpf Urine Yeast (Budding) Moderate H (None) /hpf Urine Opiates Screen Detected H (NotDetected) Ur Oxycodone Screen Not Detected (NotDetected) Urine Methadone Screen Not Detected (NotDetected) Ur Barbiturates Screen Not Detected (NotDetected) U Tricyclic Antidepress Not Detected (NotDetected) Ur Phencyclidine Scrn Not Detected (NotDetected) Ur Amphetamines Screen Not Detected (NotDetected) U Methamphetamines Scrn Not Detected (NotDetected) U Benzodiazepines Scrn Not Detected (NotDetected) Urine Cocaine Screen Not Detected (NotDetected) U Marijuana (THC) Screen Not Detected (NotDetected) Serum Alcohol mg/dL Influenza Type A (PCR) (Not Detectd) Influenza Type B (PCR) (Not Detectd) RSV (PCR) (Not Detectd) SARS-CoV-2 (PCR) (Not Detectd) 01/04/24 01/04/24 01/04/24 Range/Units 09:09 09:09 09:09 WBC (3.8-10.6) k/uL RBC (3.80-5.40) m/uL Hgb (11.4-16.0) gm/dL Hct (34.0-46.0) % MCV (80.0-100.0) fL MCH (25.0-35.0) pg MCHC (31.0-37.0) g/dL RDW (11.5-15.5) % Plt Count (150-450) k/uL MPV Neutrophils % % Lymphocytes % % Monocytes % % Eosinophils % % Basophils % % Neutrophils # (1.3-7.7) k/uL Lymphocytes # (1.0-4.8) k/uL Monocytes # (0-1.0) k/uL Eosinophils # (0-0.7) k/uL Basophils # (0-0.2) k/uL Hypochromasia Anisocytosis PT (10.0-12.5) sec INR (<1.2) APTT (22.0-30.0) sec Sodium 133 L (137-145) mmol/L Potassium 5.4 H (3.5-5.1) mmol/L Chloride 97 L (98-107) mmol/L Carbon Dioxide 28 (22-30) mmol/L Anion Gap 8 mmol/L BUN 62 H (7-17) mg/dL Creatinine 2.93 H (0.52-1.04) mg/dL Est GFR (CKD-EPI)AfAm 17 (>60 ml/min/1.73 sqM) Est GFR (CKD-EPI)NonAf 15 (>60 ml/min/1.73 sqM) Glucose 102 H (74-99) mg/dL Plasma Lactic Acid Mark 1.3 (0.7-2.0) mmol/L Calcium 11.8 H (8.4-10.2) mg/dL Total Bilirubin 0.5 (0.2-1.3) mg/dL AST 19 (14-36) U/L ALT <6 (4-34) U/L Alkaline Phosphatase 108 (38-126) U/L Ammonia <9 (<30) umol/L Troponin I 0.251 H* (0.000-0.034) ng/mL Total Protein 6.5 (6.3-8.2) g/dL Albumin 2.9 L (3.5-5.0) g/dL Urine Color Urine Appearance (Clear) Urine pH (5.0-8.0) Ur Specific [place] (1.001-1.035) Urine Protein (Negative) Urine Glucose (UA) (Negative) Urine Ketones (Negative) Urine Blood (Negative) Urine Nitrite (Negative) Urine Bilirubin (Negative) Urine Urobilinogen (<2.0) mg/dL Ur Leukocyte Esterase (Negative) Urine RBC (0-5) /hpf Urine WBC (0-5) /hpf Urine WBC Clumps (None) /hpf Ur Squamous Epith Cells (0-4) /hpf Urine Bacteria (None) /hpf Urine Mucus (None) /hpf Urine Yeast (Budding) (None) /hpf Urine Opiates Screen (NotDetected) Ur Oxycodone Screen (NotDetected) Urine Methadone Screen (NotDetected) Ur Barbiturates Screen (NotDetected) U Tricyclic Antidepress (NotDetected) Ur Phencyclidine Scrn (NotDetected) Ur Amphetamines Screen (NotDetected) U Methamphetamines Scrn (NotDetected) U Benzodiazepines Scrn (NotDetected) Urine Cocaine Screen (NotDetected) U Marijuana (THC) Screen (NotDetected) Serum Alcohol <10 mg/dL Influenza Type A (PCR) (Not Detectd) Influenza Type B (PCR) (Not Detectd) RSV (PCR) (Not Detectd) SARS-CoV-2 (PCR) (Not Detectd) 01/04/24 Range/Units 09:09 WBC (3.8-10.6) k/uL RBC (3.80-5.40) m/uL Hgb (11.4-16.0) gm/dL Hct (34.0-46.0) % MCV (80.0-100.0) fL MCH (25.0-35.0) pg MCHC (31.0-37.0) g/dL RDW (11.5-15.5) % Plt Count (150-450) k/uL MPV Neutrophils % % Lymphocytes % % Monocytes % % Eosinophils % % Basophils % % Neutrophils # (1.3-7.7) k/uL Lymphocytes # (1.0-4.8) k/uL Monocytes # (0-1.0) k/uL Eosinophils # (0-0.7) k/uL Basophils # (0-0.2) k/uL Hypochromasia Anisocytosis PT (10.0-12.5) sec INR (<1.2) APTT (22.0-30.0) sec Sodium (137-145) mmol/L Potassium (3.5-5.1) mmol/L Chloride (98-107) mmol/L Carbon Dioxide (22-30) mmol/L Anion Gap mmol/L BUN (7-17) mg/dL Creatinine (0.52-1.04) mg/dL Est GFR (CKD-EPI)AfAm (>60 ml/min/1.73 sqM) Est GFR (CKD-EPI)NonAf (>60 ml/min/1.73 sqM) Glucose (74-99) mg/dL Plasma Lactic Acid Mark (0.7-2.0) mmol/L Calcium (8.4-10.2) mg/dL Total Bilirubin (0.2-1.3) mg/dL AST (14-36) U/L ALT (4-34) U/L Alkaline Phosphatase (38-126) U/L Ammonia (<30) umol/L Troponin I (0.000-0.034) ng/mL Total Protein (6.3-8.2) g/dL Albumin (3.5-5.0) g/dL Urine Color Urine Appearance (Clear) Urine pH (5.0-8.0) Ur Specific [place] (1.001-1.035) Urine Protein (Negative) Urine Glucose (UA) (Negative) Urine Ketones (Negative) Urine Blood (Negative) Urine Nitrite (Negative) Urine Bilirubin (Negative) Urine Urobilinogen (<2.0) mg/dL Ur Leukocyte Esterase (Negative) Urine RBC (0-5) /hpf Urine WBC (0-5) /hpf Urine WBC Clumps (None) /hpf Ur Squamous Epith Cells (0-4) /hpf Urine Bacteria (None) /hpf Urine Mucus (None) /hpf Urine Yeast (Budding) (None) /hpf Urine Opiates Screen (NotDetected) Ur Oxycodone Screen (NotDetected) Urine Methadone Screen (NotDetected) Ur Barbiturates Screen (NotDetected) U Tricyclic Antidepress (NotDetected) Ur Phencyclidine Scrn (NotDetected) Ur Amphetamines Screen (NotDetected) U Methamphetamines Scrn (NotDetected) U Benzodiazepines Scrn (NotDetected) Urine Cocaine Screen (NotDetected) U Marijuana (THC) Screen (NotDetected) Serum Alcohol mg/dL Influenza Type A (PCR) Not Detected (Not Detectd) Influenza Type B (PCR) Not Detected (Not Detectd) RSV (PCR) Not Detected (Not Detectd) SARS-CoV-2 (PCR) Not Detected (Not Detectd) - EKG Data -: EKG Interpreted by Me EKG Comments: 12-lead Electrocardiogram Interpretation Note EKG was reviewed and interpreted by myself. 12-lead ECG performed at 0909 is interpreted by me as revealing normal sinus rhythm at a rate of 98 beats per minute. Right axis deviation. AK interval is 131 ms, QRS duration is 68 ms, QTc is 354 ms.. There were no ST or T wave abnormalities to suggest myocardial ischemia or injury. R wave progression across the precordium was satisfactory. By my interpretation this EKG is non-diagnostic for acute ischemia. Disposition Clinical Impression: Elevated troponin, Anemia, Dementia, Dehydration, UTI (urinary tract infection), FROILAN (acute kidney injury) Disposition: ADMITTED IP TO THIS HOSP Condition: Serious Time of Disposition: 10:58
[2024-01-04 09:43] LABS: Amphetamine Screen,Urine Not Detected (NotDetected); Barbiturate Screen,Urine Not Detected (NotDetected); Benzodiazepines Screen,Urine Not Detected (NotDetected); Cocaine Screen,Urine Not Detected (NotDetected); Methadone Screen, Urine Not Detected (NotDetected); Opiate Screen,Urine Detected (NotDetected); Oxycodone Screen, Urine Not Detected (NotDetected); Phencyclidine Screen,Urine Not Detected (NotDetected); Tricyclic Antidepressant,Urine Not Detected (NotDetected); Urn Cannabinoid Scrn Not Detected (NotDetected)
[2024-01-04] MEDS: SODIUM CHLORIDE 0.9% 1,000 ML IV ONE (09:46)
[2024-01-04 09:53] LABS: Anisocytosis Slight; Basophils % (A) 0 %; Eosinophils # (A) 0.1 k/uL (0-0.7); Eosinophils % (A) 1 %; HCT 22.6 % (34.0-46.0); HGB 7.4 gm/dL (11.4-16.0); Hypochromasia Slight; Lymphocytes # (A) 0.4 k/uL (1.0-4.8); Lymphocytes % (A) 2 %; MCH 27.1 pg (25.0-35.0); MCHC 32.6 g/dL (31.0-37.0); MCV 82.9 fL (80.0-100.0); Mean Platelet Volume 7.4; Monocytes # (A) 0.7 k/uL (0-1.0); Monocytes % (A) 4 %; Neutrophils % (A) 93 %; Platelet Count 375 k/uL (150-450); RBC 2.73 m/uL (3.80-5.40); RDW 16.2 % (11.5-15.5); WBC 19.3 k/uL (3.8-10.6)
[2024-01-04 10:05] LABS: Prothrombin Time 10.7 sec (10.0-12.5)
[2024-01-04 10:13] LABS: ALT <6 U/L (4-34); AST 19 U/L (14-36); African American GFR (CKD) 17 (>60 ml/min/1.73 sqM); Albumin 2.9 g/dL (3.5-5.0); Alcohol <10 mg/dL; Alkaline Phosphatase 108 U/L (38-126); Anion Gap 8 mmol/L; Blood Urea Nitrogen 62 mg/dL (7-17); Calcium 11.8 mg/dL (8.4-10.2); Carbon Dioxide 28 mmol/L (22-30); Chloride 97 mmol/L (98-107); Glucose 102 mg/dL (74-99); Lactic Acid, Venous 1.3 mmol/L (0.7-2.0); Non-African American GFR(CKD) 15 (>60 ml/min/1.73 sqM); Potassium 5.4 mmol/L (3.5-5.1); Sodium 133 mmol/L (137-145); Total Bilirubin 0.5 mg/dL (0.2-1.3); Total Protein 6.5 g/dL (6.3-8.2)
--- NOTE | 2024-01-04 10:19 | CT ---
EXAMINATION TYPE: CT brain wo con DATE OF EXAM: 01/04/2024 COMPARISON: 10/30/2023 INDICATION: Altered mental status DLP: 1091.4 mGycm, Automated exposure control for dose reduction was used. CONTRAST: None CT of the brain is performed utilizing 3 mm thick sections through the posterior fossa and 3 mm thick sections through the remaining calvarium. Study is performed within 24 hours of arrival to the hosp ital. No abnormal hyperdensity is present to suggest an acute intracranial hemorrhage. No mass lesion is evident. No acute infarcts are evident. There is patchy periventricular white matter hypodensity, likely on th e basis of chronic white matter ischemic changes. Ventricles and sulci are prominent for the patient age. Paranasal sinuses and mastoid air cells within the [id number] are clear. IMPRESSION: 1. Stable chronic appearing patchy periventricular white matter ischemic-type changes with atrophy.
[2024-01-04 10:29] LABS: Partial Thromboplastin Time 21.9 sec (22.0-30.0)
--- NOTE | 2024-01-04 10:55 | XR ---
EXAMINATION TYPE: XR chest 2V, XR shoulder limited 2 views LT, XR pelvis AP view DATE OF EXAM: 01/04/2024 COMPARISON: 10/30/2023 HISTORY: 78-year-old female confusion, altered mental status TECHNIQUE: AP and lateral views FINDINGS: Chest: Heart normal size. Atherosclerotic arch calcifications. Pulmonary vasculature within normal limits. N o consolidation or pleural effusion. Moderate degenerative change right shoulder. Left shoulder: There appears to be a large defect of the humeral head articular surface not seen on 10/30/2023. Some osseous density is present just below the level of the surgical neck of the humerus. AC joint intact . No evidence of glenohumeral joint dislocation. Pelvis: Redemonstrated is fracture along the lateral aspect of the right superior pubic ramus. There is great er degree of now 9 mm of inferior displacement versus 3 mm, previously. Residual fracture lucency is noted along the inferior pubic ramus though with healing periosteal callus. Prominent 1.4 cm ossicle along the posterosuperior left acetabulum. Bowel content partially obscures the sacrum. No new acute fracture is seen. No evident femoral neck fracture though osteopenia limits the evaluation. IMPRESSION: 1. Chest: No acute cardiopulmonary process. 2. Left shoulder: New, large bony defect of the humeral head articular surface, not seen on 10/30/20 23. Some osseous density just below the surgical neck level of the humerus, probably bone fragments. Correlate for interval AVN with articular collapse or other etiology such as a large impaction deform ity secondary to interval large posttraumatic posterior shoulder dislocation. Again, clinical correla tion recommended. 3. Pelvis: Known superior and inferior pubic rami fracture on the right. These are subacute, incomple tely healed fractures. The superior pubic ramus fracture has displaced now by 9 mm versus 3 mm, previ ously.
[2024-01-04] MEDS: SODIUM CHLORIDE 0.9% 1,000 ML IV STA (10:59)
[2024-01-04] MEDS ORDERED: NALOXONE 0.4 MG/ML 1 ML VIAL IV PRN (11:05)
--- NOTE | 2024-01-04 12:47 | P.HPIM ---
History of Present Illness H&P Date: 01/04/24 History of Presenting Illness: Patient is a very pleasant 78-year-old female with a past medical history of Alzheimer's dementia with baseline mentation alert and oriented x 1-2, hypertension, hyperlipidemia, hypothyroidism, [id number] diabetes mellitus, iron deficiency anemia, recurrent UTIs, and history of prior pelvic fr acture with chronic pelvic pain. She presented to the emergency department with a chief complaint of worsening confusion. Patient's reports that his is normally confused but he has noticed worsening confusion and a decreased appetite over the past few days. History obtained via chart as patient's was not available at bedside and call placed to both home phone and cell phone number listed in chart with no answer. Patient currently alert to person and was able to state her full name and date of and that she lives at home with her and was somewhat alert to place as she states she is at the doctor's office because her pelvis hurts. Patient otherwise is a poor medical history historian and currently denies having any other pain or complaints at this time with the exception of above mentioned pelvic pain. She underwent full evaluation in the emergency department. Vital signs upon arrival show blood pressure 132/63, heart rate 96, respiratory rate 20, temp 99.6 F, and SpO2 of 100% on room air. EKG completed showing normal sinus rhythm at 98 bpm with no significant T wave or ST abnormalities showing no signs of acute ischemia upon personal review and interpretation. CT brain completed and negative for acute intracranial process with radiology report stating stable chronic appearing patchy periventricular white matter ischemic changes with atrophy. Chest x-ray completed and was negative for acute cardiopulmonary process. X-ray left should er completed showing large bony defect in the humeral head articular surface. Pelvis x-ray completed showing known superior and inferior pubic rami fracture on the right reporting these as subacute incompletely healed fractures but reporting the superior pubic ramus fracture has displaced now by 9 mm versus 3 mm previously. Labs were completed and reviewed. CBC showing leukocytosis with a WBC count of 19.3 and hemoglobin of 7.4 (with a baseline hemoglobin of around 7.5). BMP showing hyponatremia with sodium of 133, hyperkalemia with potassium of 5.4, hypochloremia with chloride of 97, and an acute kidney injury with BUN of 62, creatinine 2.93, and GFR of 15 with baseline creatinine of 0.9. Calcium high at 11.8. Liver profile showing no significant abnormalities with the exception of low albumin of 2.9. Initial troponin elevated at 0.251. Urinalysis positive for protein, ketones, blood, leukocyte esterase, greater than 182 RBCs, and 69 WBCs. Influenza A, influenza B, COVID, and RSV were negative. Review of systems: Pertinent positives and negatives as discussed in HPI, a complete review of systems was performed and all other systems are negative. Physical exam: Vital signs reviewed and stable. General: Nontoxic, no acute distress and appears stated age. Derm: Skin warm and dry, normal coloration for ethnicity. Head: Atraumatic, normocephalic and symmetric. Eyes: EOMs intact, no lid lag, and anicteric sclera Mouth: no lip lesions, mucus membranes moist Cardiovascular: regular rate and rhythm with normal S1S2, systolic murmur, positive posterior tibial pulses bilaterally, and cap refill < 2 seconds. Lungs: Respirations even, regular, and unlabored on room air. Lungs CTA bilaterally, no rhonchi, no rales, no wheezing, and no accessory muscle usage. Abdominal: soft, nontender to palpation, no guarding, no appreciable organomegaly Ext: No gross muscle atrophy, no edema, no contractures. Movement and sensation intact. Mild left upper extremity edema and shoulder pain Neuro: Speech clear, face symmetrical and CN II-XII grossly intact with no noted focal neuro deficits Psych: Alert and oriented to person and place and confused to time and situation. She was pleasant and cooperative. Assessment and Plan of Care: Elevated troponin, possibly NSTEMI -Patient free from any cardiac complaints at this time. Left shoulder pain only reported with movement or palpation. -Initial troponin 0.251. -EKG completed showing normal sinus rhythm at 98 bpm with no significant T wave or ST abnormalities showing no signs of acute ischemia upon personal review and interpretation. -Cardiology consulted, appreciate recommendations. -Aspirin 324 mg p.o. x 1 dose followed by aspirin 81 mg daily and atorvastatin 40 mg daily. -Patient to remain on continuous telemetry monitoring. -Echocardiogram to be completed. Acute kidney injury, unclear rule out obstructive vs infectious vs cardiorenal etiology Hyperkalemia, secondary to acute kidney injury UTI -Order placed for Lokelma 10 mg p.o. x 1 dose and repeat BMP at 6 PM. -Nephrology consulted, appreciate recommendations. -Order placed for stat renal ultrasound to rule out obstructive process or hydronephrosis -Order placed for bladder scanning to monitor for postvoid residual or retention. -Hold nephrotoxic medication, Lasix -Continue with gentle IV fluid hydration with 0.9% normal saline at 100 cc/h. -IV antibiotics with Rocephin 2 g daily pending urine culture results -Continued close monitoring with repeat CBC to monitor leukocytosis and BMP to monitor renal function and potassium levels. -Patient to remain on continuous telemetry monitoring. Acute metabolic encephalopathy, secondary to worsening Alzheimer's dementia versus above Alzheimer's dementia -CT brain completed and negative for acute intracranial process with radiology report stating stable chronic appearing patchy periventricular white matter ischemic changes with atrophy. -Provide safe and supportive care with redirection and assistance as needed. -Continue daily medication regimen with carbidopa levodopa 25/100 mg tablets 4 times daily. Left shoulder and pelvic pain -X-ray left shoulder completed showing large bony defect in the humeral head articular surface. -Pelvis x-ray completed showing known superior and inferior pubic rami fracture on the right reporting these as subacute incompletely healed fractures but reporting the superior pubic ramus fracture has displaced now by 9 mm versus 3 mm previously. -Patient to be provided with symptomatic care and pain management. -Fall precautions in place. -Orthopedic surgery consulted, appreciate recommendations. Type II non-insulin dependent diabetes mellitus -Blood glucose 102. -Metformin held and patient placed on glycemic protocol with NovoLog sliding scale. Chronic iron deficiency anemia -Continue ferrous sulfate 325 mg daily. Hypothyroidism -Continue daily medication regimen with levothyroxine 100 mcg daily. -Order placed for TSH with free T4. Data and imaging reviewed: As stated above in HPI. The patient is admitted with an anticipated greater than 2 midnight stay for evaluation of acute renal failure. CODE STATUS: DNR/DNI DVT prophylaxis: Heparin Anticipated discharge date: Clinical course to determine Anticipated discharge place: Clinical course to determine Patient was seen independently by Nurse Practitioner. This document was prepared using [employer] dictation software. Please allow for errors in microsoft access developer while rare they do occur. I reviewed the documentation as provided by the PARMJIT above, who is the original author of this note. I agree with the documented assessment and plan, with the following changes: none Past Medical History Past Medical History: Dementia, Diabetes Mellitus, Hyperlipidemia, Hypertension, Thyroid Disorder History of Any Multi-Drug Resistant Organisms: None Reported Past Surgical History: Unable to Obtain Past Anesthesia/Blood Transfusion Reactions: No Reported Reaction Past Psychological History: Depression Smoking Status: Never smoker Past Alcohol Use History: None Reported Past Drug Use History: None Reported - Past Family History Brother(s) Additional Family Medical History / Comment(s): Unable to obtain due to patient's underlying dementia Medications and Allergies Home Medications Medication Instructions Recorded Confirmed Type ARIPiprazole 5 mg PO DAILY 07/27/22 01/04/24 History Acetaminophen Tab [Tylenol] 500 mg PO Q6H PRN 07/27/22 01/04/24 History Alendronate Sodium 70 mg PO CALABRESE 07/27/22 01/04/24 History Aspirin EC [Ecotrin Low Dose] 81 mg PO DAILY 07/27/22 01/04/24 History Citalopram Hydrobromide 20 mg PO DAILY 07/27/22 01/04/24 History [Citalopram HBr] Cyanocobalamin (Vitamin B-12) 1,000 mcg PO DAILY 07/27/22 01/04/24 History [Vitamin B-12] Levothyroxine Sodium 100 mcg PO DAILY 07/27/22 01/04/24 History Simvastatin [Zocor] 80 mg PO DAILY 07/27/22 01/04/24 History metFORMIN HCL [Glucophage] 500 mg PO TID 07/27/22 01/04/24 History Carbidopa-Levodopa 25-100 mg 1 tab PO QID 10/30/23 01/04/24 History [Sinemet 25-100 mg] Ferrous Sulfate [Feosol] 325 mg PO DAILY 01/04/24 01/04/24 History Furosemide [Lasix] 20 mg PO DAILY 01/04/24 01/04/24 History Allergies Allergy/AdvReac Type Severity Reaction Status Date / Time peanut AdvReac "Watery Verified 01/04/24 11:08 eyes" Physical Exam Osteopathic Statement: *. No significant issues noted on an osteopathic structural exam other than those noted in the History and Physical/Consult. Vitals: Vital Signs Temp Pulse Resp BP Pulse Ox 01/04/24 11:03 97.6 F 96 18 122/58 97 01/04/24 10:35 96 17 120/93 97 01/04/24 09:49 96 20 132/63 100 02/22/24 08:55 99.6 F 98 17 98 Intake and Output 01/03/24 01/04/24 01/04/24 22:59 06:59 14:59 Other: Weight 83.915 kg Results CBC & Chem 7: 01/05/24 06:52 01/05/24 06:52 Labs: Abnormal Lab Results - Last 24 Hours (Table) 01/04/24 01/04/24 01/04/24 Range/Units 09:09 09:09 09:09 WBC 19.3 H (3.8-10.6) k/uL RBC 2.73 L (3.80-5.40) m/uL Hgb 7.4 L (11.4-16.0) gm/dL Hct 22.6 L (34.0-46.0) % RDW 16.2 H (11.5-15.5) % Neutrophils # 18.0 H (1.3-7.7) k/uL Lymphocytes # 0.4 L (1.0-4.8) k/uL APTT 21.9 L (22.0-30.0) sec Sodium (137-145) mmol/L Potassium (3.5-5.1) mmol/L Chloride (98-107) mmol/L BUN (7-17) mg/dL Creatinine (0.52-1.04) mg/dL Glucose (74-99) mg/dL Calcium (8.4-10.2) mg/dL Troponin I (0.000-0.034) ng/mL Albumin (3.5-5.0) g/dL Urine Appearance Cloudy H (Clear) Urine Protein 2+ H (Negative) Urine Ketones Trace H (Negative) Urine Blood Large H (Negative) Ur Leukocyte Esterase Moderate H (Negative) Urine RBC >182 H (0-5) /hpf Urine WBC 69 H (0-5) /hpf Urine WBC Clumps Moderate H (None) /hpf Urine Bacteria Occasional H (None) /hpf Urine Mucus Rare H (None) /hpf Urine Yeast (Budding) Moderate H (None) /hpf Urine Opiates Screen Detected H (NotDetected) 01/04/24 01/04/24 Range/Units 09:09 09:09 WBC (3.8-10.6) k/uL RBC (3.80-5.40) m/uL Hgb (11.4-16.0) gm/dL Hct (34.0-46.0) % RDW (11.5-15.5) % Neutrophils # (1.3-7.7) k/uL Lymphocytes # (1.0-4.8) k/uL APTT (22.0-30.0) sec Sodium 133 L (137-145) mmol/L Potassium 5.4 H (3.5-5.1) mmol/L Chloride 97 L (98-107) mmol/L BUN 62 H (7-17) mg/dL Creatinine 2.93 H (0.52-1.04) mg/dL Glucose 102 H (74-99) mg/dL Calcium 11.8 H (8.4-10.2) mg/dL Troponin I 0.251 H* (0.000-0.034) ng/mL Albumin 2.9 L (3.5-5.0) g/dL Urine Appearance (Clear) Urine Protein (Negative) Urine Ketones (Negative) Urine Blood (Negative) Ur Leukocyte Esterase (Negative) Urine RBC (0-5) /hpf Urine WBC (0-5) /hpf Urine WBC Clumps (None) /hpf Urine Bacteria (None) /hpf Urine Mucus (None) /hpf Urine Yeast (Budding) (None) /hpf Urine Opiates Screen (NotDetected)
[2024-01-04] MEDS: SODIUM ZIRCONIUM CYCLOSILICATE 10 GM PACKET PO ONE (13:24)
[2024-01-04] MEDS ORDERED: DEXTROSE 50% SYRINGE 50 ML IVP PRN ×2 (15:57)
[2024-01-04 16:36] LABS: Glucose,Whole Blood 89 mg/dL (70-110)
[2024-01-04] MEDS: INSULIN ASPART (NovoLOG) 100 UNIT/ML VIAL SQ SCH (16:51)
--- NOTE | 2024-01-04 17:30 | P.CNOR ---
History of Present Illness - [facility] Consult date: 01/04/24 Requesting physician: Saul Fu Consult reason: other (Left shoulder landon fragments/impaction injury) History of present illness: Patient is a 78-year-old female who presented to the emergency department earlier today for evaluation due to worsening dementia. Patient does have a past medical history significant for dementia, hypertension, hyperlipidemia, hypothyroidism, diabetes, and deficiency anemia, UTIs and history of pelvic fracture with chronic pelvic pain. Patient presented with worsening confusion orthopedics has been counseled to due to left shoulder bony fragment/impaction injury. Patient was seen at bedside this afternoon on 3 S. patient was lying semirecumbent position in bed with a sling to the left upper extremity. History was difficult to obtain due to patient's medical state and without any family members present. According to the other notes patient does live at home with her and does go to primary care doctor due to pain in her pelvis. X-ray of the left shoulder did demonstrate a bony defect in the humeral head on the articular surface. Pelvic x-ray does show pubic rami fractures on the right side. Patient denies having any falls or traumas or hitting her head recently. Patient denies chest pain, fever, shortness of breath, nausea, vomiting, change in vision, loss of bowel/bladder control. e. Past Medical History Past Medical History: Dementia, Diabetes Mellitus, Hyperlipidemia, Hypertension, Thyroid Disorder History of Any Multi-Drug Resistant Organisms: None Reported Past Surgical History: Unable to Obtain Past Anesthesia/Blood Transfusion Reactions: No Reported Reaction Past Psychological History: Depression Smoking Status: Never smoker Past Alcohol Use History: None Reported Past Drug Use History: None Reported - Past Family History Brother(s) Additional Family Medical History / Comment(s): Unable to obtain due to patient's underlying dementia Medications and Allergies Home Medications Medication Instructions Recorded Confirmed Type ARIPiprazole 5 mg PO DAILY 07/27/22 01/04/24 History Acetaminophen Tab [Tylenol] 500 mg PO Q6H PRN 07/27/22 01/04/24 History Alendronate Sodium 70 mg PO CALABRESE 07/27/22 01/04/24 History Aspirin EC [Ecotrin Low Dose] 81 mg PO DAILY 07/27/22 01/04/24 History Citalopram Hydrobromide 20 mg PO DAILY 07/27/22 01/04/24 History [Citalopram HBr] Cyanocobalamin (Vitamin B-12) 1,000 mcg PO DAILY 07/27/22 01/04/24 History [Vitamin B-12] Levothyroxine Sodium 100 mcg PO DAILY 07/27/22 01/04/24 History Simvastatin [Zocor] 80 mg PO DAILY 07/27/22 01/04/24 History metFORMIN HCL [Glucophage] 500 mg PO TID 07/27/22 01/04/24 History Carbidopa-Levodopa 25-100 mg 1 tab PO QID 10/30/23 01/04/24 History [Sinemet 25-100 mg] Ferrous Sulfate [Feosol] 325 mg PO DAILY 01/04/24 01/04/24 History Furosemide [Lasix] 20 mg PO DAILY 01/04/24 01/04/24 History Allergies Allergy/AdvReac Type Severity Reaction Status Date / Time peanut AdvReac "Watery Verified 01/04/24 11:08 eyes" Physical Examination inspection: negative for any open fractures, significant erythema/ecchymosis open wounds. Sling present to the left upper extremity. Sensation: equal, symmetric, bilaterally intact throughout the upper and lower extremities Palpation: moderate TTP over right posterior sacral region. fair amount TTP diffusely throughout right hip. Moderate tenderness to the patient diffusely around the left shoulder. Positive for tenderness of the patient over the before meals joint and clavicle on the left. Range of motion: patient does have some limited range of motion in the right hip and right knee in flexion/extension secondary to referred pain to the right hip. patient has full range of motion throughout right ankle on exam. Patient does have range of motion in the left upper extremity and the shoulder secondary to injury and pain. She does have full range of motion bilateral wrists in flexion/extension and elbows in flexion/extension. Motor: 4-/5 and resisted right knee flexion/extension and right hip flexion/extension. Left upper extremity shoulder motor exam not performed due to to injury and pain. 4/5 in resisted bilateral wrist flexion/extension. 4/5 in resisted right elbow flexion/extension. 4/5 in all major motor groups in left lower extremity. Neurovascular: radial pulses intact, 2+ bilaterally. Refill under 3 seconds in digits of UE Special tests: negative clonus bilaterally. log roll maneuver to the right does produce some pain To the right hip Results - Labs Labs: Abnormal Lab Results - Last 24 Hours (Table) 01/04/24 01/04/24 01/04/24 Range/Units 09:09 09:09 09:09 WBC 19.3 H (3.8-10.6) k/uL RBC 2.73 L (3.80-5.40) m/uL Hgb 7.4 L (11.4-16.0) gm/dL Hct 22.6 L (34.0-46.0) % RDW 16.2 H (11.5-15.5) % Neutrophils # 18.0 H (1.3-7.7) k/uL Lymphocytes # 0.4 L (1.0-4.8) k/uL APTT 21.9 L (22.0-30.0) sec Sodium (137-145) mmol/L Potassium (3.5-5.1) mmol/L Chloride (98-107) mmol/L BUN (7-17) mg/dL Creatinine (0.52-1.04) mg/dL Glucose (74-99) mg/dL Calcium (8.4-10.2) mg/dL Troponin I (0.000-0.034) ng/mL Albumin (3.5-5.0) g/dL Urine Appearance Cloudy H (Clear) Urine Protein 2+ H (Negative) Urine Ketones Trace H (Negative) Urine Blood Large H (Negative) Ur Leukocyte Esterase Moderate H (Negative) Urine RBC >182 H (0-5) /hpf Urine WBC 69 H (0-5) /hpf Urine WBC Clumps Moderate H (None) /hpf Urine Bacteria Occasional H (None) /hpf Urine Mucus Rare H (None) /hpf Urine Yeast (Budding) Moderate H (None) /hpf Urine Opiates Screen Detected H (NotDetected) 01/04/24 01/04/24 01/04/24 Range/Units 09:09 09:09 14:12 WBC (3.8-10.6) k/uL RBC (3.80-5.40) m/uL Hgb (11.4-16.0) gm/dL Hct (34.0-46.0) % RDW (11.5-15.5) % Neutrophils # (1.3-7.7) k/uL Lymphocytes # (1.0-4.8) k/uL APTT (22.0-30.0) sec Sodium 133 L (137-145) mmol/L Potassium 5.4 H (3.5-5.1) mmol/L Chloride 97 L (98-107) mmol/L BUN 62 H (7-17) mg/dL Creatinine 2.93 H (0.52-1.04) mg/dL Glucose 102 H (74-99) mg/dL Calcium 11.8 H (8.4-10.2) mg/dL Troponin I 0.251 H* 0.432 H* (0.000-0.034) ng/mL Albumin 2.9 L (3.5-5.0) g/dL Urine Appearance (Clear) Urine Protein (Negative) Urine Ketones (Negative) Urine Blood (Negative) Ur Leukocyte Esterase (Negative) Urine RBC (0-5) /hpf Urine WBC (0-5) /hpf Urine WBC Clumps (None) /hpf Urine Bacteria (None) /hpf Urine Mucus (None) /hpf Urine Yeast (Budding) (None) /hpf Urine Opiates Screen (NotDetected) H & H 01/04/24 Range/Units 09:09 Hgb 7.4 L (11.4-16.0) gm/dL Hct 22.6 L (34.0-46.0) % Coagulation 01/04/24 Range/Units 09:09 INR 1.0 (<1.2) Result Diagrams: 01/04/24 09:09 01/04/24 09:09 - Diagnostic results Shoulder x-ray: report reviewed, image reviewed (X-ray left shoulder does demonstrate deformity of the humeral head could be concerning for neuropathic arthropathy or possibly AVN of the head) Comments: X-ray of the pelvis does demonstrate superior and inferior pubic rami fractures on the right side. Assessment and Plan Assessment: 1. 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 History of dementia and multiple medical comorbidities Plan: 1. Right-sided superior and inferior pubic rami fractures chronic; left shoul britton humeral head collapse likely AVN or neuropathic arthropathy - x-ray of the left shoulder and AP pelvis has been reviewed. There is evident right-sided pubic rami fractures superiorly and inferiorly this is chronic. X-ray of the left shoulder does demonstrate collapse of the humeral head likely AVN or neuropathic arthropathy. I did discuss the findings with my attending, Dr. Almonte. At this time we're recommending conservative measures with the use of a sling to left upper extremity. Patient may perform gentle range of motion exercises of the left upper extremity as tolerated, remain nonweightbearing to left upper extremity. In regards to the right-sided pubic rami fracture, patient may weight-bear as tolerated with walker and assistance. At this time we are not recommending any emergent/urgent orthopedic surgical intervention. We are recommend conservative measures with the use of pain medication and PT/OT daily. We'll continue to follow patient during stay in hospital. 2. Appreciate medical and other specialty recommendations 3. Pain management recs 4. GI prophylaxis recs 5. DVT prophylaxis - aspirin; ; heparin 6. PT/OT - patient may weight-bear as tolerated with bilateral lower extremities and uses a walker when up and about with assistance. Maintain left upper extremity in sling and to be nonweightbearing. Okay to perform gentle range of motion exercises of the left upper extremity as tolerated 7. Encourage incentive spirometer use 8. Appreciate consult Time with Patient: Less than 30
[2024-01-04] MEDS: ASPIRIN 81 MG PO STA (17:52)
[2024-01-04] MEDS: CARBIDOPA-LEVODOPA 25-100 MG 1 EACH TAB PO SCH (17:55)
[2024-01-04 19:01] LABS: African American GFR (CKD) 18 (>60 ml/min/1.73 sqM); Anion Gap 8 mmol/L; Blood Urea Nitrogen 56 mg/dL (7-17); Calcium 10.6 mg/dL (8.4-10.2); Carbon Dioxide 25 mmol/L (22-30); Chloride 101 mmol/L (98-107); Glucose 78 mg/dL (74-99); Non-African American GFR(CKD) 15 (>60 ml/min/1.73 sqM); Potassium 4.8 mmol/L (3.5-5.1); Sodium 134 mmol/L (137-145)
[2024-01-04 20:04] LABS: Glucose,Whole Blood 98 mg/dL (70-110)
--- NOTE | 2024-01-04 22:10 | US ---
EXAMINATION TYPE: US kidneys/renal and bladder DATE OF EXAM: 01/04/2024 COMPARISON: NONE CLINICAL INDICATION: Female, 78 years old with history of ; FROILAN EXAM MEASUREMENTS: Right Kidney: 9.1 x 4.0 x 4.7 cm Left kidney: Unable to visualize. Right Kidney: Cortical thinning, no evidence of hydro Left Kidney: Unable to visualize due pt immobility, left arm in sling unable to move left arm, pt in too much pain to tolerate probe pressure Bladder: Possible anterior wall thickened Bilateral Jets seen: No IMPRESSION: 1. No hydronephrosis on the right. Changes of chronic medical renal disease. 2. Unable to adequately visualize or assess the left kidney due to patient's condition. 3. Mild bladder wall thickening may be chronic for the patient. Correlate to exclude cystitis.
[2024-01-04] MEDS: HEPARIN SODIUM,PORCINE 5,000 UNIT/ML 1 ML VIAL SQ SCH (22:59)
[2024-01-05 06:18] LABS: Glucose,Whole Blood 92 mg/dL (70-110)
[2024-01-05] MEDS: LEVOTHYROXINE 100 MCG TAB PO SCH (06:37)
[2024-01-05 07:45] LABS: Anisocytosis Slight; Basophils % (A) 0 %; Eosinophils % (A) 0 %; Hypochromasia Marked; Lymphocytes # (A) 1.1 k/uL (1.0-4.8); Lymphocytes % (A) 9 %; MCH 26.7 pg (25.0-35.0); MCHC 31.2 g/dL (31.0-37.0); MCV 85.7 fL (80.0-100.0); Mean Platelet Volume 7.7; Monocytes # (A) 0.5 k/uL (0-1.0); Monocytes % (A) 4 %; Neutrophils # (A) 11.3 k/uL (1.3-7.7); Neutrophils % (A) 86 %; Platelet Count 293 k/uL (150-450); RBC 2.25 m/uL (3.80-5.40); RDW 16.4 % (11.5-15.5); WBC 13.1 k/uL (3.8-10.6)
[2024-01-05 07:58] LABS: HCT 19.3 % (34.0-46.0)
[2024-01-05 08:00] LABS: African American GFR (CKD) 16 (>60 ml/min/1.73 sqM); Anion Gap 6 mmol/L; Blood Urea Nitrogen 58 mg/dL (7-17); Calcium 10.2 mg/dL (8.4-10.2); Carbon Dioxide 25 mmol/L (22-30); Chloride 103 mmol/L (98-107); Glucose 73 mg/dL (74-99); Magnesium 1.7 mg/dL (1.6-2.3); Non-African American GFR(CKD) 14 (>60 ml/min/1.73 sqM); Potassium 4.4 mmol/L (3.5-5.1); Sodium 134 mmol/L (137-145)
[2024-01-05] MEDS: ASPIRIN 81 MG PO SCH (08:56)
[2024-01-05] MEDS: CYANOCOBALAMIN 500 MCG TAB PO SCH (08:56)
[2024-01-05] MEDS: FERROUS SULFATE 325 MG TAB PO SCH (08:56)
[2024-01-05] MEDS: ATORVASTATIN 40 MG TAB PO SCH (08:56)
[2024-01-05] MEDS: CITALOPRAM HYDROBROMIDE 20 MG TAB PO SCH (08:56)
[2024-01-05] MEDS: SODIUM CHLORIDE 0.9% 1,000 ML IV SCH (09:39)
[2024-01-05] MEDS: SODIUM CHLORIDE 0.9% 250 ML IV SCH (09:45)
[2024-01-05] MEDS: MAGNESIUM SULFATE-D5W PMX 1 GM in DEXTROSE/WATER 1 100ML.BAG IVPB SCH (10:12)
--- NOTE | 2024-01-05 10:29 | P.CRDCN ---
History of Present Illness History of present illness: HISTORY OF PRESENT ILLNESS: This is a 78-year-old female with a past medical history significant for Parkinson's, hyperlipidemia, diabetes, depression. Patient does not follow with a mounter flutes and piccolos. We have been asked to see the patient in consultation for elevated troponins. Patient examined at the bedside. Patient denies any chest pain or pressure. She denies any shortness of breath. Vital signs are stable. DIAGNOSTICS: - EKG reveals sinus mechanism with nonspecific ST-T wave changes. - Chest xray negative for acute cardiopulmonary process. New large bony defect of the humeral head articular surface. Some osseous density just below the surgical neck level of the humerus, probably bone fragments. Known superior and inferior pubic rami fracture on the right. These are subacute, and completely healed fractures. The superior pubic ramus fracture has displaced now by 9 mm versus 3 mm previously. - Laboratory data: WBC 19.3. Hemoglobin 7.4. Platelet count 375. Sodium 133. Potassium 5.4. BUN 62. Creatinine 2.93. Troponin 0.251. 0.432. 0.505 lactic acid 1.4. - Current home cardiac medications include simvastatin 80 mg daily, Lasix 20 mg daily, and aspirin 81 mg daily - Most recent echocardiogram obtained in October 2023 revealed ejection fraction 55 to 60%, mild TR, mild MR, moderate pulmonary hypertension REVIEW OF SYSTEMS: At the time of my exam: CONSTITUTIONAL: Denies fever or chills. HEENT: Denies blurred vision, vision changes, or eye pain. Denies hemoptysis CARDIOVASCULAR: Denies chest pain. Denies orthopnea. Denies PND. Denies palpitations RESPIRATORY: Denies shortness of breath. GASTROINTESTINAL: Denies abdominal pain. Denies nausea or vomiting. HEMATOLOGIC: Denies bleeding disorders. GENITOURINARY: Denies any blood in urine. SKIN: Denies pruitis. Denies rash. PHYSICAL EXAM: VITAL SIGNS: Reviewed. GENERAL: Well-developed in no acute distress. HEENT: Head is normocephalic. Pupils are equal, round. Sclerae anicteric. Mucous membranes of the mouth are moist. Neck supple. No JVD or thyromegaly LUNGS: Respirations even and unlabored. Lungs essentially clear to auscultation bilaterally. HEART: Regular rate and rhythm. S1 and S2 heard. ABDOMEN: Soft. Nondistended. Nontender. EXTREMITIES: Normal range of motion. No clubbing or cyanosis. Peripheral pulses intact. No lower extremity edema NEUROLOGIC: Awake and alert. Confused ASSESSMENT: Altered mental status, worsening dementia Urinary tract infection Leukocytosis Anemia Acute kidney injury Abnormal troponins, no evidence of acute coronary syndrome, likely type II PA Parkinson's disease Hyperlipidemia Diabetes Depression PLAN: An acute coronary event has been ruled out 2D echo ordered by internal medicine No further inpatient recommendations from a cardiac standpoint We will sign off. Please reconsult if needed. Nurse practitioner note has been reviewed by physician. Signing provider agrees with the documented findings, assessment, and plan of care documented by MICROBIOLOGY LAB TECHNICIAN as a scribe. Past Medical History Past Medical History: Dementia, Diabetes Mellitus, Hyperlipidemia, Hypertension, Thyroid Disorder History of Any Multi-Drug Resistant Organisms: None Reported Past Surgical History: Unable to Obtain Past Anesthesia/Blood Transfusion Reactions: No Reported Reaction Past Psychological History: Depression Smoking Status: Never smoker Past Alcohol Use History: None Reported Past Drug Use History: None Reported - Past Family History Brother(s) Additional Family Medical History / Comment(s): Unable to obtain due to patient's underlying dementia Medications and Allergies Home Medications Medication Instructions Recorded Confirmed Type ARIPiprazole 5 mg PO DAILY 07/27/22 01/04/24 History Acetaminophen Tab [Tylenol] 500 mg PO Q6H PRN 07/27/22 01/04/24 History Alendronate Sodium 70 mg PO CALABRESE 07/27/22 01/04/24 History Aspirin EC [Ecotrin Low Dose] 81 mg PO DAILY 07/27/22 01/04/24 History Citalopram Hydrobromide 20 mg PO DAILY 07/27/22 01/04/24 History [Citalopram HBr] Cyanocobalamin (Vitamin B-12) 1,000 mcg PO DAILY 07/27/22 01/04/24 History [Vitamin B-12] Levothyroxine Sodium 100 mcg PO DAILY 07/27/22 01/04/24 History Simvastatin [Zocor] 80 mg PO DAILY 07/27/22 01/04/24 History metFORMIN HCL [Glucophage] 500 mg PO TID 07/27/22 01/04/24 History Carbidopa-Levodopa 25-100 mg 1 tab PO QID 10/30/23 01/04/24 History [Sinemet 25-100 mg] Ferrous Sulfate [Feosol] 325 mg PO DAILY 01/04/24 01/04/24 History Furosemide [Lasix] 20 mg PO DAILY 01/04/24 01/04/24 History Allergies Allergy/AdvReac Type Severity Reaction Status Date / Time peanut AdvReac "Watery Verified 01/04/24 11:08 eyes" Physical Exam Vitals: Vital Signs Temp Pulse Resp BP Pulse Ox 01/04/24 12:20 98.8 F 01/04/24 12:13 93 16 111/54 97 01/04/24 11:03 97.6 F 96 18 122/58 97 01/04/24 10:35 96 17 120/93 97 01/04/24 09:49 96 20 132/63 100 01/04/24 08:55 99.6 F 98 17 98 Intake and Output 01/03/24 01/04/24 01/04/24 22:59 06:59 14:59 Other: Weight 83.915 kg Results 01/05/24 06:52 01/05/24 06:52 Cardiac Enzymes 01/04/24 01/04/24 Range/Units 09:09 09:09 AST 19 (14-36) U/L Troponin I 0.251 H* (0.000-0.034) ng/mL Coagulation 01/04/24 Range/Units 09:09 PT 10.7 (10.0-12.5) sec APTT 21.9 L (22.0-30.0) sec CBC 01/04/24 Range/Units 09:09 WBC 19.3 H (3.8-10.6) k/uL RBC 2.73 L (3.80-5.40) m/uL Hgb 7.4 L (11.4-16.0) gm/dL Hct 22.6 L (34.0-46.0) % Plt Count 375 (150-450) k/uL Comprehensive Metabolic Panel 01/04/24 Range/Units 09:09 Sodium 133 L (137-145) mmol/L Potassium 5.4 H (3.5-5.1) mmol/L Chloride 97 L (98-107) mmol/L Carbon Dioxide 28 (22-30) mmol/L BUN 62 H (7-17) mg/dL Creatinine 2.93 H (0.52-1.04) mg/dL Glucose 102 H (74-99) mg/dL Calcium 11.8 H (8.4-10.2) mg/dL AST 19 (14-36) U/L ALT <6 (4-34) U/L Alkaline Phosphatase 108 (38-126) U/L Total Protein 6.5 (6.3-8.2) g/dL Albumin 2.9 L (3.5-5.0) g/dL Current Medications Generic Name Dose Route Start Last Admin Trade Name Freq PRN Reason Stop Dose Admin Heparin Sodium (Porcine) 5,000 unit 01/04/24 21:00 Heparin Sodium,Porcine 5,000 Unit/Ml 1 Ml Vial SQ Q12HR VASHTI Ceftriaxone Sodium 2 gm/ 50 mls @ 100 mls/hr 01/04/24 10:45 01/04/24 11:03 Sodium Chloride IVPB 100 mls/hr Q24HR VASHTI Administration Protocol Sodium Chloride 1,000 mls @ 100 mls/hr 01/04/24 10:46 01/04/24 10:59 Saline 0.9% IV 01/04/24 20:45 100 mls/hr .Q10H STA Administration Naloxone HCl 0.2 mg 01/04/24 11:05 Naloxone 0.4 Mg/Ml 1 Ml Vial IV Q2M PRN Opioid Reversal Intake and Output 01/03/24 01/04/24 01/04/24 22:59 06:59 14:59 Other: Weight 83.915 kg Patient Weight 01/05/24 06:59 Weight 83.915 kg 01/04/24 09:09 01/04/24 09:09
--- NOTE | 2024-01-05 10:37 | P.NPCON ---
History of Present Illness - Reason for Consult acute renal failure - History of Present Illness Patient is a 78-year-old female with history of dementia, hypertension, type 2 diabetes and history of recurrent UTI. Patient is admitted to the hospital with worsening mental status. She has been more confused. No history of fever or chills. Serum creatinine was elevated at 2.9 on admission and it is 3.0 today. Previous creatinine 0.9 mg/dL on 12/06/2023. Blood pressure has been slightly on the lower side although not significantly low. Potassium was elevated at 5.4. Hemoglobin dropped to 6 g/dL today. No active bleeding noted but did report pink-tinged wipe at home. Currently with indwelling Rodriguez catheter. 300 cc documented overnight. Status post IV fluids on initial admission. Maintained on metformin and Lasix at home prior to admission. Review of Systems As per HPI Past Medical History Past Medical History: Dementia, Diabetes Mellitus, Hyperlipidemia, Hypertension, Thyroid Disorder History of Any Multi-Drug Resistant Organisms: None Reported Past Surgical History: Unable to Obtain Past Anesthesia/Blood Transfusion Reactions: No Reported Reaction Past Psychological History: Depression Smoking Status: Never smoker Past Alcohol Use History: None Reported Past Drug Use History: None Reported - Past Family History Brother(s) Additional Family Medical History / Comment(s): Unable to obtain due to patient's underlying dementia Medications and Allergies Home Medications Medication Instructions Recorded Confirmed Type ARIPiprazole 5 mg PO DAILY 07/27/22 01/04/24 History Acetaminophen Tab [Tylenol] 500 mg PO Q6H PRN 07/27/22 01/04/24 History Alendronate Sodium 70 mg PO CALABRESE 07/27/22 01/04/24 History Aspirin EC [Ecotrin Low Dose] 81 mg PO DAILY 07/27/22 01/04/24 History Citalopram Hydrobromide 20 mg PO DAILY 07/27/22 01/04/24 History [Citalopram HBr] Cyanocobalamin (Vitamin B-12) 1,000 mcg PO DAILY 07/27/22 01/04/24 History [Vitamin B-12] Levothyroxine Sodium 100 mcg PO DAILY 07/27/22 01/04/24 History Simvastatin [Zocor] 80 mg PO DAILY 07/27/22 01/04/24 History metFORMIN HCL [Glucophage] 500 mg PO TID 07/27/22 01/04/24 History Carbidopa-Levodopa 25-100 mg 1 tab PO QID 10/30/23 01/04/24 History [Sinemet 25-100 mg] Ferrous Sulfate [Feosol] 325 mg PO DAILY 01/04/24 01/04/24 History Furosemide [Lasix] 20 mg PO DAILY 01/04/24 01/04/24 History Allergies Allergy/AdvReac Type Severity Reaction Status Date / Time peanut AdvReac "Watery Verified 01/04/24 11:08 eyes" Physical Exam Vitals: Vital Signs Temp Pulse Pulse Resp BP BP Pulse Ox 01/05/24 08:50 77 18 01/05/24 08:49 99.2 F 77 18 115/64 99 01/05/24 04:00 97.4 F L 61 19 110/61 96 01/04/24 23:38 97.5 F L 83 19 119/65 97 01/04/24 20:00 99.9 F H 94 20 115/63 96 01/04/24 17:54 96 16 01/04/24 16:35 99.7 F H 96 16 157/73 97 01/04/24 15:45 99.3 F 97 16 132/57 96 01/04/24 14:15 97 16 01/04/24 13:49 99.1 F 96 17 121/59 98 01/04/24 12:20 98.8 F 01/04/24 12:13 93 16 111/54 97 01/04/24 11:03 97.6 F 96 18 122/58 97 01/04/24 10:35 96 17 120/93 97 Intake and Output 01/04/24 01/05/24 01/05/24 22:59 06:59 14:59 Intake Total 0 Output Total 300 Balance -300 0 Intake: Oral 0 Output: Urine 300 Other: Voiding Method Indwelling Catheter Indwelling Catheter Indwelling Catheter Weight 83.915 kg Patient is awake, comfortable, no acute distress Examination of the heart S1 and S2 Examination of the lungs decreased breath sounds at the bases Abdomen is soft nontender Examination of lower extremity shows no significant edema PRESS SET UP exam shows patient is moving all 4 extremities. She is confused at times. Results - Lab Results Most recent lab results Calcium 10.2 mg/dL (8.4-10.2) 01/05/24 06:52 Magnesium 1.7 mg/dL (1.6-2.3) 01/05/24 06:52 01/05/24 06:52 01/05/24 06:52 Assessment and Plan Assessment: 1. Acute kidney injury, ATN secondary to severe anemia. Currently with indwelling Rodriguez catheter. UA shows 2+ protein large blood and WBCs 69. Ultrasound shows no hydronephrosis on the right kidney. Left kidney could not be visualized due to patient position. 2. Acute blood loss anemia, most likely GI bleed. Being transfused packed RBCs. Check iron profile 3. Hyperkalemia on admission associated with acute kidney injury, currently improved 4. Hypertension with blood pressure currently on the lower side. Plan: Maintain IV fluids Continue empiric antibiotics Check iron profile Continue to hold metformin and diuretics. Thank you for the consultation. We will continue to follow the patient with you during her hospitalization
[2024-01-05 11:19] LABS: Glucose,Whole Blood 118 mg/dL (70-110)
--- NOTE | 2024-01-05 12:29 | P.PN ---
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 History is difficult to obtain due to patient's medical state. Patient does mentions she is still having some left shoulder pain as she points the left shoulder. Patient says she is able to move her left elbow somewhat as well as left hand. Patient denies other issues at this time. Objective - Vital Signs Vital signs: Vital Signs Temp 99.2 F 01/05/24 08:49 Pulse 77 01/05/24 08:50 Resp 18 01/05/24 08:50 BP 115/64 01/05/24 08:49 Pulse Ox 99 01/05/24 08:49 FiO2 Intake & Output 01/04/24 01/05/24 01/05/24 18:59 06:59 18:59 Intake Total 0 Output Total 300 Balance -300 0 Weight 83.915 kg Intake: Oral 0 Output: Urine 300 Other: Voiding Method Indwelling Catheter Indwelling Catheter Indwelling Catheter - Exam inspection: negative for any open fractures, significant erythema/ecchymosis open wounds. Sling present to the left upper extremity. Sensation: equal, symmetric, bilaterally intact throughout the upper and lower extremities Palpation: moderate TTP over right posterior sacral region. fair amount TTP diffusely throughout right hip. Moderate tenderness to the patient diffusely around the left shoulder. Positive for tenderness of the patient over the before meals joint and clavicle on the left. Range of motion: patient does have some limited range of motion in the right hip and right knee in flexion/extension secondary to referred pain to the right hip. patient has full range of motion throughout right ankle on exam. Patient does have range of motion in the left upper extremity and the shoulder secondary to injury and pain. She does have full range of motion bilateral wrists in fl exion/extension and elbows in flexion/extension. Motor: 4-/5 and resisted right knee flexion/extension and right hip flexion/extension. Left upper extremity shoulder motor exam not performed due t o to injury and pain. 4/5 in resisted bilateral wrist flexion/extension. 4/5 in resisted right elbow flexion/extension. 4/5 in all major motor groups in left lower extremity. Neurovascular: radial pulses intact, 2+ bilaterally. Refill under 3 seconds in digits of UE Special tests: negative clonus bilaterally. log roll maneuver to the right does produce some pain To the right hip - Labs CBC & Chem 7: 01/05/24 06:52 01/05/24 06:52 Labs: Abnormal Lab Results - Last 24 Hours (Table) 01/04/24 01/04/24 01/04/24 Range/Units 14:12 16:30 18:08 WBC (3.8-10.6) k/uL RBC (3.80-5.40) m/uL Hgb (11.4-16.0) gm/dL Hct (34.0-46.0) % RDW (11.5-15.5) % Neutrophils # (1.3-7.7) k/uL Sodium 134 L (137-145) mmol/L BUN 56 H (7-17) mg/dL Creatinine 2.83 H (0.52-1.04) mg/dL Glucose (74-99) mg/dL Calcium 10.6 H (8.4-10.2) mg/dL Troponin I 0.432 H* 0.505 H* (0.000-0.034) ng/mL 01/05/24 01/05/24 Range/Units 06:52 06:52 WBC 13.1 H (3.8-10.6) k/uL RBC 2.25 L (3.80-5.40) m/uL Hgb 6.0 L* (11.4-16.0) gm/dL Hct 19.3 L* (34.0-46.0) % RDW 16.4 H (11.5-15.5) % Neutrophils # 11.3 H (1.3-7.7) k/uL Sodium 134 L (137-145) mmol/L BUN 58 H (7-17) mg/dL Creatinine 3.04 H (0.52-1.04) mg/dL Glucose 73 L (74-99) mg/dL Calcium (8.4-10.2) mg/dL Troponin I (0.000-0.034) ng/mL Microbiology - Last 24 Hours (Table) 01/04/24 10:55 Blood Culture Gram Stain - Preliminary Blood Blood Culture - Preliminary Presumptive Staph aureus 01/04/24 10:40 Blood Culture Gram Stain - Preliminary Blood Blood Culture - Preliminary Presumptive Staph aureus Assessment and Plan Assessment: 1. 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 History of dementia and multiple medical comorbidities Plan: 1. Right-sided superior and inferior pubic rami fractures chronic; left cornelio ulder humeral head collapse likely AVN or neuropathic arthropathy - x-ray of the left shoulder and AP pelvis has been reviewed. There is evident right-sided pubic rami fractures superiorly and inferiorly this is chronic. X-ray of the left shoulder does demonstrate collapse of the humeral head likely AVN or neuropathic arthropathy. I did discuss the findings with my attending, Dr. Almonte. At this time we're recommending conservative measures with the use of a sling to left upper extremity. Patient may perform gentle range of motion exercises of the left upper extremity as tolerated, remain nonweightbearing to left upper extremity. In regards to the right-sided pubic rami fracture, patien t may weight-bear as tolerated with walker and assistance. At this time we are not recommending any emergent/urgent orthopedic surgical intervention. We are recommend conservative measures with the use of pain medication and PT/OT daily. Patient is stable from an orthopedic standpoint for discharge. At this time orthopedics is signing off. Please do not hesitate to contact us for any further questions. Patient may follow up with Dr. Almonte in the outpatient setting for further evaluation. 2. Appreciate medical and other specialty recommendations 3. Pain management recs 4. GI prophylaxis recs 5. DVT prophylaxis - aspirin; ; heparin 6. PT/OT - patient may weight-bear as tolerated with bilateral lower extremities and uses a walker when up and about with assistance. Maintain left upper extremity in sling and to be nonweightbearing. Okay to perform gentle range of motion exercises of the left upper extremity as tolerated 7. Encourage incentive spirometer use Time with Patient: Less than 30
[2024-01-05 16:21] LABS: Glucose,Whole Blood 160 mg/dL (70-110)
--- NOTE | 2024-01-05 16:39 | P.PN ---
Subjective Progress Note Date: 01/05/24 Hospital course: Patient is a very pleasant 78-year-old female with a past medical history of Alzheimer's dementia with baseline mentation alert and oriented x 1-2, hypertension, hyperlipidemia, hypothyroidism, [id number] diabetes mellitus, iron deficiency anemia, recurrent UTIs, and history of prior pelvic fracture with chronic pelvic pain. She presented to the emergency department with a chief complaint of worsening confusion. Patient's reports that his is normally confused but he has noticed worsening confusion and a decreased appetite over the past few days. She underwent full evaluation in the emergency department. Vital signs upon arrival show blood pressure 132/63, heart rate 96, respiratory rate 20, temp 99.6 F, and SpO2 of 100% on room air. EKG completed showing normal sinus rhythm at 98 bpm with no significant T wave or ST abnormalities showing no signs of acute ischemia upon personal review and interpretation. CT brain completed and negative for acute intracranial process with radiology report stating stable chronic appearing patchy periventricular white matter ischemic changes with atrophy. Chest x-ray completed and was negative for acute cardiopulmonary process. X-ray left shoulder completed showing large bony defect in the humeral head articular surface. Pelvis x-ray completed showing known superior and inferior pubic rami fracture on the right reporting these as subacute incompletely healed fractures but reporting the superior pubic ramus fracture has displaced now by 9 mm versus 3 mm previously. Labs were completed and reviewed. CBC showing leukocytosis with a WBC count of 19.3 and hemoglobin of 7.4 (with a baseline hemoglobin of around 7.5). BMP showing hyponatremia with sodium of 133, hyperkalemia with potassium of 5.4, hypochloremia with chloride of 97, and an acute kidney injury with BUN of 62, creatinine 2.93, and GFR of 15 with baseline creatinine of 0.9. Calcium high at 11.8. Liver profile showing no significant abnormalities with the exception of low albumin of 2.9. Initial troponin elevated at 0.251. Urinalysis positive for protein, ketones, blood, leukocyte esterase, greater than 182 RBCs, and 69 WBCs. Influenza A, influenza B, COVID, and RSV were negative. Patient was admitted under our services with consultation to cardiology, nephrology and orthopedic surgery. Troponins trended overnight resulting at 0.251, 0.432, and 0.505. Orthopedic surgery evaluated, recommending conservative measures with use of sling to left upper extremity. Orthopedic team also recommending patient may perform gentle range of motion exercises of left upper extremity as tolerated, remain nonweightbearing to left upper extremity and in regards to pubic rami fracture patient may be weightbearing as tolerated and ambulate with walker with assistance. Review of systems: Pertinent positives and negatives as discussed in HPI, a complete review of systems was performed and all other systems are negative. Physical exam: Vital signs reviewed and stable. General: Nontoxic, no acute distress and appears stated age. Derm: Skin warm and dry, normal coloration for ethnicity. Head: Atraumatic, normocephalic and symmetric. Eyes: EOMs intact, no lid lag, and anicteric sclera Mouth: no lip lesions, mucus membranes moist Cardiovascular: regular rate and rhythm with normal S1S2, systolic murmur, positive posterior tibial pulses bilaterally, and cap refill < 2 seconds. Lungs: Respirations even, regular, and unlabored on room air. Lungs CTA bilaterally, no rhonchi, no rales, no wheezing, and no accessory muscle usage. Abdominal: soft, nontender to palpation, no guarding, no appreciable organomegaly Ext: No gross muscle atrophy, no edema, no contractures. Movement and sensation intact. Mild left upper extremity edema and shoulder pain Neuro: Speech clear, face symmetrical and CN II-XII grossly intact with no noted focal neuro deficits Psych: Alert and oriented to person and place and confused to time and situation. She was pleasant and cooperative. Assessment and Plan of Care: Acute kidney injury with oliguria Acute on chronic Iron Deficiency anemia (baseline hemoglobin 7.5 currently 6.0) Hyperkalemia, secondary to acute kidney injury. Resolved. UTI Bacteremia -Hyperkalemia resolved with repeat potassium of 4.8 after 1 dose of Lokelma 10 mg p.o. -Nephrology consulted, appreciate recommendations. -Renal ultrasound completed negative for hydronephrosis showing changes of chronic medical renal disease and unable to adequately visualize or assess left kidney, and mild bladder wall thickening. -Rodriguez catheter placed for strict monitoring of I's and O's, urinary output over the past 24 hours is only 300 cc -Order placed for iron profile, discussed with lab to be added onto blood currently in lab prior to transfusion. Order placed for fecal occult. -Hemoglobin 6.0 this morning, baseline hemoglobin 7.5. Worsening hemoglobin possibly secondary to dilution from fluid received during admission vs GI bleed. No noted signs of GI bleeding since admission. -Order placed for transfusion 1 unit PRBCs. Continue to repeat CBC every 6 hours and transfuse as needed for hemoglobin less than 7. -Hold nephrotoxic medication, Lasix and Continue with gentle IV fluid hydration with 0.9% normal saline at 75 cc/h. -IV antibiotics with Rocephin 2 g daily pending urine culture results -Follow-up on urine culture results, preliminarily positive for gram-negative bacilli -Follow-up blood culture results, preliminarily positive for Staph aureus 2 out of 2 sets -Patient to remain on continuous telemetry monitoring. -Continue ferrous sulfate 325 mg daily. Elevated troponins, type II NSTEMI -Patient remains free from any cardiac complaints at this time. Left shoulder pain only reported with movement or palpation. -Troponins trended overnight resulting at 0.251, 0.432, and 0.505 -EKG normal sinus rhythm at 98 bpm with no significant T wave or ST abnormalities showing no signs of acute ischemia upon personal review and interp retation. -Cardiology consulted, appreciate recommendations. -Continue aspirin 81 mg daily and atorvastatin 40 mg daily. -Patient to remain on continuous telemetry monitoring. -Echocardiogram to be completed. Acute metabolic encephalopathy, secondary to worsening Alzheimer's dementia versus above Alzheimer's dementia -CT brain completed and negative for acute intracranial process with radiology report stating stable chronic appearing patchy periventricular white matter ischemic changes with atrophy. -Provide safe and supportive care with redirection and assistance as needed. -Continue daily medication regimen with carbidopa levodopa 25/100 mg tablets 4 times daily. Left shoulder and pelvic pain Right-sided superior and inferior pubic rami fractures, chronic Left shoulder humeral head collapse, possibly secondary to AVN vs neuropathic arthropathy -X-ray left shoulder completed showing large bony defect in the humeral head articular surface. -Pelvis x-ray completed showing known superior and inferior pubic rami fracture on the right reporting these as subacute incompletely healed fractures but r eporting the superior pubic ramus fracture has displaced now by 9 mm versus 3 mm previously. -Patient to be provided with symptomatic care and pain management. -Fall precautions in place. -Orthopedic surgery consulted, recommending conservative measures with use of sling to left upper extremity. Orthopedic team also recommending patient may perform gentle range of motion exercises of left upper extremity as tolerated, remain nonweightbearing to left upper extremity and in regards to pubic rami fracture patient may be weightbearing as tolerated and ambulate with walker with assistance. Type II non-insulin dependent diabetes mellitus -Blood glucose low at 73 this morning. Orders placed for [id number] glucose monitoring every 4 hours. -Continue to hold metformin and continue patient on glycemic protocol with NovoLog sliding scale. Hypothyroidism -Continue daily medication regimen with levothyroxine 100 mcg daily. -TSH 1.200 Data and imaging reviewed: Repeat labs reviewed. Repeat BMP completed yesterday evening showing resolution of hyperkalemia with repeat potassium decreasing to 4.8 after administration of Lokelma. BMP also showing hyponatremia with sodium of 134 and continued acute kidney injury with BUN of 56, creatinine of 2.83, GFR of 15. T roponins trended overnight resulting at 0.251, 0.432, and 0.505. Repeat morning labs also completed and reviewed. CBC showing improvement of leukocytosis from 19.3 down to 13.1, decrease in hemoglobin from 7.4 down to 6.0, and decrease in platelet count from 375 down to 293. BMP showing hyponatremia with sodium 134, stable potassium of 4.4, and worsening renal function with BUN of 58, creatinine 3.04, GFR 14. Blood glucose was low this morning at 73. Urine culture preliminary results positive for gram-negative bacilli Blood cultures preliminary results positive for Staph aureus 2 out of 2 sets Vital signs reviewed. Blood pressure 156/75, heart rate 100, respiratory rate 16, and SpO2 of 97% on 2 L. CODE STATUS: DNR/DNI DVT prophylaxis: Heparin Anticipated discharge date: Clinical course to determine Anticipated discharge place: Clinical course to determine Patient was seen independently by Nurse Practitioner. This document was prepared using [employer] dictation software. Please allow for errors in insulation estimator while rare they do occur. Alex Alvarenga NP rendered care for this patient independently, reviewed the findings and plan as documented in the note above. I did not physically speak with or examine the patient on this date. Iron studies reviewed from November 2023 patient with significant iron deficiency anemia. Ferritin 11, TSAT 9. Likely will benefit from IV iron supplementation once has completed 1 unit of packed red blood cells. will need close outpatient follow-up. Check CT abd and pelvis to better eval left kidney and rule out retroperitoneal bleed Objective - Vital Signs Vital signs: Vital Signs Temp 97.4 F L 01/05/24 04:00 Pulse 61 01/05/24 04:00 Resp 19 01/05/24 04:00 BP 110/61 01/05/24 04:00 Pulse Ox 96 01/05/24 04:00 FiO2 Intake & Output 01/04/24 01/05/24 01/05/24 18:59 06:59 18:59 Output Total 300 Balance -300 Weight 83.915 kg Output: Urine 300 Other: Voiding Method Indwelling Catheter Indwelling Catheter - Labs CBC & Chem 7: 01/05/24 06:52 01/05/24 06:52 Labs: Abnormal Lab Results - Last 24 Hours (Table) 01/04/24 01/04/24 01/04/24 Range/Units 09:09 09:09 09:09 WBC 19.3 H (3.8-10.6) k/uL RBC 2.73 L (3.80-5.40) m/uL Hgb 7.4 L (11.4-16.0) gm/dL Hct 22.6 L (34.0-46.0) % RDW 16.2 H (11.5-15.5) % Neutrophils # 18.0 H (1.3-7.7) k/uL Lymphocytes # 0.4 L (1.0-4.8) k/uL APTT 21.9 L (22.0-30.0) sec Sodium (137-145) mmol/L Potassium (3.5-5.1) mmol/L Chloride (98-107) mmol/L BUN (7-17) mg/dL Creatinine (0.52-1.04) mg/dL Glucose (74-99) mg/dL Calcium (8.4-10.2) mg/dL Troponin I (0.000-0.034) ng/mL Albumin (3.5-5.0) g/dL Urine Appearance Cloudy H (Clear) Urine Protein 2+ H (Negative) Urine Ketones Trace H (Negative) Urine Blood Large H (Negative) Ur Leukocyte Esterase Moderate H (Negative) Urine RBC >182 H (0-5) /hpf Urine WBC 69 H (0-5) /hpf Urine WBC Clumps Moderate H (None) /hpf Urine Bacteria Occasional H (None) /hpf Urine Mucus Rare H (None) /hpf Urine Yeast (Budding) Moderate H (None) /hpf Urine Opiates Screen Detected H (NotDetected) 01/04/24 01/04/24 01/04/24 Range/Units 09:09 09:09 14:12 WBC (3.8-10.6) k/uL RBC (3.80-5.40) m/uL Hgb (11.4-16.0) gm/dL Hct (34.0-46.0) % RDW (11.5-15.5) % Neutrophils # (1.3-7.7) k/uL Lymphocytes # (1.0-4.8) k/uL APTT (22.0-30.0) sec Sodium 133 L (137-145) mmol/L Potassium 5.4 H (3.5-5.1) mmol/L Chloride 97 L (98-107) mmol/L BUN 62 H (7-17) mg/dL Creatinine 2.93 H (0.52-1.04) mg/dL Glucose 102 H (74-99) mg/dL Calcium 11.8 H (8.4-10.2) mg/dL Troponin I 0.251 H* 0.432 H* (0.000-0.034) ng/mL Albumin 2.9 L (3.5-5.0) g/dL Urine Appearance (Clear) Urine Protein (Negative) Urine Ketones (Negative) Urine Blood (Negative) Ur Leukocyte Esterase (Negative) Urine RBC (0-5) /hpf Urine WBC (0-5) /hpf Urine WBC Clumps (None) /hpf Urine Bacteria (None) /hpf Urine Mucus (None) /hpf Urine Yeast (Budding) (None) /hpf Urine Opiates Screen (NotDetected) 01/04/24 01/04/24 Range/Units 16:30 18:08 WBC (3.8-10.6) k/uL RBC (3.80-5.40) m/uL Hgb (11.4-16.0) gm/dL Hct (34.0-46.0) % RDW (11.5-15.5) % Neutrophils # (1.3-7.7) k/uL Lymphocytes # (1.0-4.8) k/uL APTT (22.0-30.0) sec Sodium 134 L (137-145) mmol/L Potassium (3.5-5.1) mmol/L Chloride (98-107) mmol/L BUN 56 H (7-17) mg/dL Creatinine 2.83 H (0.52-1.04) mg/dL Glucose (74-99) mg/dL Calcium 10.6 H (8.4-10.2) mg/dL Troponin I 0.505 H* (0.000-0.034) ng/mL Albumin (3.5-5.0) g/dL Urine Appearance (Clear) Urine Protein (Negative) Urine Ketones (Negative) Urine Blood (Negative) Ur Leukocyte Esterase (Negative) Urine RBC (0-5) /hpf Urine WBC (0-5) /hpf Urine WBC Clumps (None) /hpf Urine Bacteria (None) /hpf Urine Mucus (None) /hpf Urine Yeast (Budding) (None) /hpf Urine Opiates Screen (NotDetected) Microbiology - Last 24 Hours (Table) 01/04/24 10:40 Blood Culture Gram Stain - Preliminary Blood
[2024-01-05 20:18] LABS: Glucose,Whole Blood 174 mg/dL (70-110)
[2024-01-05 20:50] LABS: Basophils # (A) 0.1 k/uL (0-0.2); Basophils % (A) 1 %; Eosinophils % (A) 0 %; HGB 7.3 gm/dL (11.4-16.0); Hypochromasia Slight; Lymphocytes # (A) 1.3 k/uL (1.0-4.8); Lymphocytes % (A) 12 %; MCH 28.2 pg (25.0-35.0); MCHC 33.2 g/dL (31.0-37.0); MCV 85.1 fL (80.0-100.0); Mean Platelet Volume 7.4; Monocytes # (A) 0.5 k/uL (0-1.0); Monocytes % (A) 4 %; Neutrophils # (A) 9.1 k/uL (1.3-7.7); Neutrophils % (A) 82 %; Platelet Count 266 k/uL (150-450); Poikilocytosis Slight; RBC 2.59 m/uL (3.80-5.40); RDW 15.9 % (11.5-15.5); WBC 11.2 k/uL (3.8-10.6)
--- NOTE | 2024-01-05 20:53 | CT ---
EXAMINATION TYPE: CT abdomen pelvis wo con CT DLP: 395 mGycm, Automated exposure control for dose reduction was used. DATE OF EXAM: 01/05/2024 8:41 PM COMPARISON: 01/04/2024 plain film CLINICAL INDICATION:Female, 78 years old with history of anemia, evaluate left kidney; Lower abdomina l pelvic pain TECHNIQUE: Axial CT abdomen pelvis wo con;Sagittal and coronal reformats were created on a separate workstation. Contrast used: mL of , (none if empty) Oral contrast used: without Oral Contrast (none if empty) FINDINGS: LOWER CHEST: Heart is mildly enlarged for size. There is coronary artery atherosclerosis. Trace pleural effusions bilaterally. ABDOMEN LIVER: Unremarkable GALLBLADDER AND BILE DUCTS: Small gallstones may be present in the neck. PANCREAS: Unremarkable. SPLEEN: Unremarkable. ADRENAL GLANDS: Unremarkable. KIDNEYS AND URETERS: No evidence of hydronephrosis or renal calculus. The ureters are unremarkable. PELVIS BLADDER: Rodriguez catheter in place. There is Fat stranding haziness around the bladder baez. REPRODUCTIVE: Unremarkable. ABDOMEN & PELVIS STOMACH AND BOWEL: No evidence of bowel obstruction. PERITONEUM/RETROPERITONEUM: No evidence of pneumoperitoneum or free fluid. No retroperitoneal hematom a identified. VASCULATURE: Mild atherosclerotic calcifications are present throughout the abdominal aorta and its b ranches. No evidence of aortic aneurysm. MUSCULOSKELETAL: Fractures of these right superior and right inferior pubic rami with callus bony rem odeling changes. Additional suspected fracture of the right sacrum. Degeneration changes of the aceta bulum bilaterally. Multilevel degeneration changes of the spine. LYMPH NODES: No gross evidence for lymphadenopathy. SOFT TISSUE/ABDOMINAL WALL: Unremarkable IMPRESSION: 1. No evidence for acute process involving the left kidney no obstructive uropathy or calculus. 2. Subacute fractures of the right inferior and superior pubic rami as well as the right sacrum. 3. Rodriguez catheter in place. Haziness around the bladder wall correlate with urinalysis for cystitis.
[2024-01-05] MEDS: PANTOPRAZOLE 40 MG/10 ML VIAL IVP SCH (21:43)
[2024-01-06 00:09] LABS: Anisocytosis Slight; HCT 22.4 % (34.0-46.0); HGB 7.3 gm/dL (11.4-16.0); Hypochromasia Slight; MCH 27.6 pg (25.0-35.0); MCHC 32.5 g/dL (31.0-37.0); MCV 84.7 fL (80.0-100.0); Mean Platelet Volume 7.3; Platelet Count 254 k/uL (150-450); Poikilocytosis Slight; RBC 2.65 m/uL (3.80-5.40); RDW 16.1 % (11.5-15.5); WBC 11.6 k/uL (3.8-10.6)
[2024-01-06 04:34] LABS: % Iron Saturation 5.03 (12.00-45.00)
[2024-01-06 06:12] LABS: Glucose,Whole Blood 161 mg/dL (70-110)
[2024-01-06 06:16] LABS: Anisocytosis Slight; HCT 22.7 % (34.0-46.0); HGB 7.4 gm/dL (11.4-16.0); Hypochromasia Slight; MCH 27.5 pg (25.0-35.0); MCHC 32.6 g/dL (31.0-37.0); MCV 84.3 fL (80.0-100.0); Mean Platelet Volume 8.6; Platelet Count 238 k/uL (150-450); Poikilocytosis Slight; RDW 16.1 % (11.5-15.5); WBC 10.2 k/uL (3.8-10.6)
[2024-01-06 06:25] LABS: African American GFR (CKD) 15 (>60 ml/min/1.73 sqM); Anion Gap 4 mmol/L; Blood Urea Nitrogen 57 mg/dL (7-17); Calcium 9.1 mg/dL (8.4-10.2); Carbon Dioxide 24 mmol/L (22-30); Chloride 104 mmol/L (98-107); Glucose 135 mg/dL (74-99); Magnesium 2.4 mg/dL (1.6-2.3); Non-African American GFR(CKD) 13 (>60 ml/min/1.73 sqM); Sodium 132 mmol/L (137-145)
--- NOTE | 2024-01-06 10:18 | P.PN ---
Subjective Patient is seen for follow-up for acute kidney injury. She is comfortable with no significant complaints. Urine culture is growing gram-negative bacilli and blood cultures are growing staph aureus. Serum creatinine 3.3 today. Urine output documented at 570 cc for 24 hours, which is slightly improved. Objective - Vital Signs Vital signs: Vital Signs Temp 97.6 F 01/06/24 08:06 Pulse 72 01/06/24 08:06 Resp 16 01/06/24 08:06 BP 134/65 01/06/24 08:06 Pulse Ox 94 L 01/06/24 08:06 FiO2 Intake & Output 01/05/24 01/06/24 01/06/24 18:59 06:59 18:59 Intake Total 1025 540 Output Total 150 420 Balance 875 120 Intake: IV 525 300 Magnesium Sulfate-D5w Pmx 200 1 gm In Dextrose/Water 1 100ml.bag @ 100 mls/hr IVPB Q1H VASHTI Rx#: [id number] Sodium Chloride 0.9% 1, 75 300 000 ml @ 75 mls/hr IV . [id number] VASHTI Rx#:[id number] Sodium Chloride 0.9% 250 250 ml @ 999 mls/hr IV .Q16M VASHTI Rx#:[id number] Oral 220 240 Blood Product 280 Rc Pheresis As-3 Unit 280 [id number] Output: Urine 150 420 Other: Voiding Method Indwelling Catheter Indwelling Catheter Indwelling Catheter - Exam Patient is awake, comfortable, no acute distress Examination of the heart S1 and S2 Examination of the lungs decreased breath sounds at the bases Abdomen is soft nontender Examination of lower extremities shows no significant edema. [employer] exam shows patient is moving all 4 extremities. - Labs CBC & Chem 7: 01/06/24 06:02 01/06/24 06:02 Labs: Abnormal Lab Results - Last 24 Hours (Table) 01/05/24 01/05/24 01/05/24 Range/Units 06:52 06:52 10:11 WBC (3.8-10.6) k/uL RBC (3.80-5.40) m/uL Hgb (11.4-16.0) gm/dL Hct (34.0-46.0) % RDW (11.5-15.5) % Neutrophils # (1.3-7.7) k/uL Sodium (137-145) mmol/L BUN (7-17) mg/dL Creatinine (0.52-1.04) mg/dL Glucose (74-99) mg/dL POC Glucose (mg/dL) (70-110) mg/dL Hemoglobin A1c 6.1 H (<=6.0) % Magnesium (1.6-2.3) mg/dL Iron 10 L (50-170) UG/DL TIBC 199 L (228-460) UG/DL % Saturation 5.03 L (12.00-45.00) Transferrin 142.0 L (204.0-354.0) mg/dL Crossmatch See Detail 01/05/24 01/05/24 01/05/24 Range/Units 11:18 16:20 20:17 WBC (3.8-10.6) k/uL RBC (3.80-5.40) m/uL Hgb (11.4-16.0) gm/dL Hct (34.0-46.0) % RDW (11.5-15.5) % Neutrophils # (1.3-7.7) k/uL Sodium (137-145) mmol/L BUN (7-17) mg/dL Creatinine (0.52-1.04) mg/dL Glucose (74-99) mg/dL POC Glucose (mg/dL) 118 H 160 H 174 H (70-110) mg/dL Hemoglobin A1c (<=6.0) % Magnesium (1.6-2.3) mg/dL Iron (50-170) UG/DL TIBC (228-460) UG/DL % Saturation (12.00-45.00) Transferrin (204.0-354.0) mg/dL Crossmatch 01/05/24 01/05/24 01/06/24 Range/Units 20:28 23:39 06:02 WBC 11.2 H 11.6 H (3.8-10.6) k/uL RBC 2.59 L 2.65 L 2.70 L (3.80-5.40) m/uL Hgb 7.3 L 7.3 L 7.4 L (11.4-16.0) gm/dL Hct 22.0 L 22.4 L 22.7 L (34.0-46.0) % RDW 15.9 H 16.1 H 16.1 H (11.5-15.5) % Neutrophils # 9.1 H (1.3-7.7) k/uL Sodium (137-145) mmol/L BUN (7-17) mg/dL Creatinine (0.52-1.04) mg/dL Glucose (74-99) mg/dL POC Glucose (mg/dL) (70-110) mg/dL Hemoglobin A1c (<=6.0) % Magnesium (1.6-2.3) mg/dL Iron (50-170) UG/DL TIBC (228-460) UG/DL % Saturation (12.00-45.00) Transferrin (204.0-354.0) mg/dL Crossmatch 01/06/24 01/06/24 Range/Units 06:02 06:10 WBC (3.8-10.6) k/uL RBC (3.80-5.40) m/uL Hgb (11.4-16.0) gm/dL Hct (34.0-46.0) % RDW (11.5-15.5) % Neutrophils # (1.3-7.7) k/uL Sodium 132 L (137-145) mmol/L BUN 57 H (7-17) mg/dL Creatinine 3.32 H (0.52-1.04) mg/dL Glucose 135 H (74-99) mg/dL POC Glucose (mg/dL) 161 H (70-110) mg/dL Hemoglobin A1c (<=6.0) % Magnesium 2.4 H (1.6-2.3) mg/dL Iron (50-170) UG/DL TIBC (228-460) UG/DL % Saturation (12.00-45.00) Transferrin (204.0-354.0) mg/dL Crossmatch Microbiology - Last 24 Hours (Table) 01/04/24 10:48 Urine Culture - Preliminary Urine,Catheterized Gram Neg Bacilli 01/04/24 10:55 Blood Culture Gram Stain - Preliminary Blood Blood Culture - Preliminary Presumptive Staph aureus 01/04/24 10:40 Blood Culture Gram Stain - Preliminary Blood Blood Culture - Preliminary Presumptive Staph aureus Assessment and Plan Assessment: 1. Acute kidney injury, ATN secondary to severe anemia. Currently with indwelling Rodriguez catheter. UA shows 2+ protein large blood and WBCs 69. Ultrasound shows no hydronephrosis on the right kidney. Left kidney could not be visualized due to patient position. CT scan shows no evidence of obstructive uropathy. Urine output slightly improved. Maintained on IV fluids. 2. Acute blood loss anemia, most likely GI bleed. Being transfused packed RBCs. Iron studies show significant iron deficiency however at this time in view of positive blood cultures I will hold the IV iron until 2 to 3 days of being on antibiotics. 3. Hyperkalemia on admission associated with acute kidney injury, currently improved 4. Hypertension with blood pressure currently on the lower side. 5. UTI with urine culture growing gram-negative bacilli 6. Bacteremia with blood cultures growing Staph aureus Plan: Maintain IV fluids Continue empiric antibiotics Hold iron until active infection is under control. Continue to hold metformin and diuretics.
[2024-01-06 11:17] LABS: Glucose,Whole Blood 164 mg/dL (70-110)
[2024-01-06 11:39] LABS: Anisocytosis Slight; HCT 23.6 % (34.0-46.0); HGB 7.7 gm/dL (11.4-16.0); Hypochromasia Slight; MCH 27.8 pg (25.0-35.0); MCHC 32.7 g/dL (31.0-37.0); Mean Platelet Volume 7.3; Platelet Count 269 k/uL (150-450); Poikilocytosis Slight; RBC 2.77 m/uL (3.80-5.40); RDW 16.2 % (11.5-15.5); WBC 10.1 k/uL (3.8-10.6)
--- NOTE | 2024-01-06 12:01 | P.PN ---
Subjective Progress Note Date: 01/06/24 Hospital course: Patient is a very pleasant 78-year-old female with a past medical history of Alzheimer's dementia with baseline mentation alert and oriented x 1-2, hypertension, hyperlipidemia, hypothyroidism, [id number] diabetes mellitus, iron deficiency anemia, recurrent UTIs, and history of prior pelvic fracture with chronic pelvic pain. She presented to the emergency department with a chief complaint of worsening confusion. Patient's reports that his is normally confused but he has noticed worsening confusion and a decreased appetite over the past few days. She underwent full evaluation in the emergency department. Vital signs upon arrival show blood pressure 132/63, heart rate 96, respiratory rate 20, temp 99.6 F, and SpO2 of 100% on room air. EKG completed showing normal sinus rhythm at 98 bpm with no significant T wave or ST abnormalities showing no signs of acute ischemia upon personal review and interpretation. CT brain completed and negative for acute intracranial process with radiology report stating stable chronic appearing patchy periventricular white matter ischemic changes with atrophy. Chest x-ray completed and was negative for acute cardiopulmonary process. X-ray left shoulder completed showing large bony defect in the humeral head articular surface. Pelvis x-ray completed showing known superior and inferior pubic rami fracture on the right reporting these as subacute incompletely healed fractures but reporting the superior pubic ramus fracture has displaced now by 9 mm versus 3 mm previously. Labs were completed and reviewed. CBC showing leukocytosis with a WBC count of 19.3 and hemoglobin of 7.4 (with a baseline hemoglobin of around 7.5). BMP showing hyponatremia with sodium of 133, hyperkalemia with potassium of 5.4, hypochloremia with chloride of 97, and an acute kidney injury with BUN of 62, creatinine 2.93, and GFR of 15 with baseline creatinine of 0.9. Calcium high at 11.8. Liver profile showing no significant abnormalities with the exception of low albumin of 2.9. Initial troponin elevated at 0.251. Urinalysis positive for protein, ketones, blood, leukocyte esterase, greater than 182 RBCs, and 69 WBCs. Influenza A, influenza B, COVID, and RSV were negative. Patient was admitted under our services with consultation to cardiology, nephrology and orthopedic surgery. Troponins trended overnight resulting at 0.251, 0.432, and 0.505. Orthopedic surgery evaluated, recommending conservative measures with use of sling to left upper extremity. Orthopedic team also recommending patient may perform gentle range of motion exercises of left upper extremity as tolerated, remain nonweightbearing to left upper extremity and in regards to pubic rami fracture patient may be weightbearing as tolerated and ambulate with walker with assistance. Renal function continues to worsen. Nephrology also consulted. Patient also found to have MSSA bacteremia. ID also consulted. Currently on IV antibiotics. Source unclear. Subjective: Patient seen and examined at bedside. No acute events overnight. Denies any pain at the moment. No new complaints. Rodriguez catheter in place. Physical exam: Vital signs reviewed and stable. General: Nontoxic, no acute distress and appears stated age. Derm: Skin warm and dry, normal coloration for ethnicity. Head: Atraumatic, normocephalic and symmetric. Eyes: EOMs intact, no lid lag, and anicteric sclera Mouth: no lip lesions, mucus membranes moist Cardiovascular: regular rate and rhythm with normal S1S2, systolic murmur, positive posterior tibial pulses bilaterally, and cap refill < 2 seconds. Lungs: Respirations even, regular, and unlabored on room air. Lungs CTA bilaterally, no rhonchi, no rales, no wheezing, and no accessory muscle usage. Abdominal: soft, nontender to palpation, no guarding, no appreciable organomegaly Ext: Left upper extremity in a sling Neuro: Speech clear, face symmetrical and CN II-XII grossly intact with no noted focal neuro deficits Psych: Alert and oriented x 1. She was pleasant and cooperative. Assessment and Plan of Care: Patient is severely ill, needs close monitoring. Prognosis guarded. Acute kidney injury with oliguria Acute on chronic Iron Deficiency anemia, status post 1 unit of PRBCs Hyperkalemia, resolved Suspected UTI, gram-negative bacilli MSSA bacteremia -Nephrology note reviewed, continue IV fluids, empiric antibiotics, hold IV iron, hold metformin and diuretics -Continue normal saline at 75 cc an hour -Hemoglobin slightly improved, no active bleeding -Personally discussed management with ID, patient switched over to cefazolin 2 g every 24 hours IV, less likely to be urinary tract infection -Repeat blood cultures pending -Echocardiogram pending -Patient to remain on continuous telemetry monitoring. -Continue ferrous sulfate 325 mg daily, and ascorbic acid, hold off IV iron Elevated troponins, type II NSTEMI -Chest pain-free, cardiology signed off -Continue aspirin 81 mg daily and atorvastatin 40 mg daily. -Patient to remain on continuous telemetry monitoring. -Echocardiogram pending Acute metabolic encephalopathy, secondary to worsening Alzheimer's dementia versus above Alzheimer's dementia -CT brain completed and negative for acute intracranial process with radiology report stating stable chronic appearing patchy periventricular white matter ischemic changes with atrophy. -Provide safe and supportive care with redirection and assistance as needed. -Continue daily medication regimen with carbidopa levodopa 25/100 mg tablets 4 times daily. Left shoulder and pelvic pain Right-sided superior and inferior pubic rami fractures, chronic Left shoulder humeral head collapse, possibly secondary to AVN vs neuropathic arthropathy -X-ray left shoulder completed showing large bony defect in the humeral head articular surface. -Pelvis x-ray completed showing known superior and inferior pubic rami fracture on the right reporting these as subacute incompletely healed fractures but reporting the superior pubic ramus fracture has displaced now by 9 mm versus 3 mm previously. -Patient to be provided with symptomatic care and pain management. -Fall precautions in place. -Orthopedic surgery consulted, recommending conservative measures with use of sling to left upper extremity. Orthopedic team also recommending patient may perform gentle range of motion exercises of left upper extremity as tolerated, remain nonweightbearing to left upper extremity and in regards to pubic rami fracture patient may be weightbearing as tolerated and ambulate with walker with assistance. Type II non-insulin dependent diabetes mellitus -Continue to hold metformin -Continue sliding scale insulin, monitor for hypoglycemia Hypothyroidism -Continue daily medication regimen with levothyroxine 100 mcg daily. -TSH 1.200 Data and imaging reviewed: WBC 10.1, hemoglobin 7.7, creatinine 3.32, sodium 132, magnesium 2.4 CODE STATUS: DNR/DNI DVT prophylaxis: Heparin Anticipated discharge date: Clinical course to determine Anticipated discharge place: Clinical course to determine Objective - Vital Signs Vital signs: Vital Signs Temp 97.9 F 01/06/24 11:25 Pulse 74 01/06/24 11:25 Resp 15 01/06/24 11:25 BP 156/71 01/06/24 11:25 Pulse Ox 97 01/06/24 11:25 FiO2 Intake & Output 01/05/24 01/06/24 01/06/24 18:59 06:59 18:59 Intake Total 1025 540 Output Total 150 420 Balance 875 120 Intake: IV 525 300 Magnesium Sulfate-D5w Pmx 200 1 gm In Dextrose/Water 1 100ml.bag @ 100 mls/hr IVPB Q1H [facility] Rx#: [id number] Sodium Chloride 0.9% 1, 75 300 000 ml @ 75 mls/hr IV . [id number] [facility] Rx#:[id number] Sodium Chloride 0.9% 250 250 ml @ 999 mls/hr IV .Q16M [facility] Rx#:[id number] Oral 220 240 Blood Product 280 Rc Pheresis As-3 Unit 280 [id number] Output: Urine 150 420 Other: Voiding Method Indwelling Catheter Indwelling Catheter Indwelling Catheter - Labs CBC & Chem 7: 01/06/24 10:55 01/06/24 06:02 Labs: Abnormal Lab Results - Last 24 Hours (Table) 01/05/24 01/05/24 01/05/24 Range/Units 06:52 10:11 16:20 WBC (3.8-10.6) k/uL RBC (3.80-5.40) m/uL Hgb (11.4-16.0) gm/dL Hct (34.0-46.0) % RDW (11.5-15.5) % Neutrophils # (1.3-7.7) k/uL Sodium (137-145) mmol/L BUN (7-17) mg/dL Creatinine (0.52-1.04) mg/dL Glucose (74-99) mg/dL POC Glucose (mg/dL) 160 H (70-110) mg/dL Magnesium (1.6-2.3) mg/dL Iron 10 L (50-170) UG/DL TIBC 199 L (228-460) UG/DL % Saturation 5.03 L (12.00-45.00) Transferrin 142.0 L (204.0-354.0) mg/dL Crossmatch See Detail 01/05/24 01/05/24 01/05/24 Range/Units 20:17 20:28 23:39 WBC 11.2 H 11.6 H (3.8-10.6) k/uL RBC 2.59 L 2.65 L (3.80-5.40) m/uL Hgb 7.3 L 7.3 L (11.4-16.0) gm/dL Hct 22.0 L 22.4 L (34.0-46.0) % RDW 15.9 H 16.1 H (11.5-15.5) % Neutrophils # 9.1 H (1.3-7.7) k/uL Sodium (137-145) mmol/L BUN (7-17) mg/dL Creatinine (0.52-1.04) mg/dL Glucose (74-99) mg/dL POC Glucose (mg/dL) 174 H (70-110) mg/dL Magnesium (1.6-2.3) mg/dL Iron (50-170) UG/DL TIBC (228-460) UG/DL % Saturation (12.00-45.00) Transferrin (204.0-354.0) mg/dL Crossmatch 01/06/24 01/06/24 01/06/24 Range/Units 06:02 06:02 06:10 WBC (3.8-10.6) k/uL RBC 2.70 L (3.80-5.40) m/uL Hgb 7.4 L (11.4-16.0) gm/dL Hct 22.7 L (34.0-46.0) % RDW 16.1 H (11.5-15.5) % Neutrophils # (1.3-7.7) k/uL Sodium 132 L (137-145) mmol/L BUN 57 H (7-17) mg/dL Creatinine 3.32 H (0.52-1.04) mg/dL Glucose 135 H (74-99) mg/dL POC Glucose (mg/dL) 161 H (70-110) mg/dL Magnesium 2.4 H (1.6-2.3) mg/dL Iron (50-170) UG/DL TIBC (228-460) UG/DL % Saturation (12.00-45.00) Transferrin (204.0-354.0) mg/dL Crossmatch 01/06/24 01/06/24 Range/Units 10:55 11:15 WBC (3.8-10.6) k/uL RBC 2.77 L (3.80-5.40) m/uL Hgb 7.7 L (11.4-16.0) gm/dL Hct 23.6 L (34.0-46.0) % RDW 16.2 H (11.5-15.5) % Neutrophils # (1.3-7.7) k/uL Sodium (137-145) mmol/L BUN (7-17) mg/dL Creatinine (0.52-1.04) mg/dL Glucose (74-99) mg/dL POC Glucose (mg/dL) 164 H (70-110) mg/dL Magnesium (1.6-2.3) mg/dL Iron (50-170) UG/DL TIBC (228-460) UG/DL % Saturation (12.00-45.00) Transferrin (204.0-354.0) mg/dL Crossmatch Microbiology - Last 24 Hours (Table) 01/04/24 10:48 Urine Culture - Preliminary Urine,Catheterized Gram Neg Bacilli 01/04/24 10:55 Blood Culture Gram Stain - Preliminary Blood Blood Culture - Preliminary Presumptive Staph aureus 01/04/24 10:40 Blood Culture Gram Stain - Preliminary Blood Blood Culture - Preliminary Presumptive Staph aureus
--- NOTE | 2024-01-06 13:38 | CA ---
Transthoracic Echo Report Name: Joan Granados Age: 78 Gender: F : 1945 Exam Date: 01/05/2024 13:35 Exam Location: [place] [facility] Ht (in): 51 Wt (lb): 185 Ordering Physician: Alex Alvarenga Attending/Referring Phys: [employer] Operator Liliya Gagnon RDCS Procedure CPT: Indications: Evaluate structure and function Cardiac Hx: Technical Quality: Contrast 1: Total Dose (mL): Contrast 2: Total Dose (mL): MEASUREMENTS (Male / Female) Normal Values 2D ECHO LV Diastolic Diameter PLAX 4.4 cm 4.2 - 5.9 / 3.9 - 5.3 cm LV Systolic Diameter PLAX 3.7 cm IVS Diastolic Thickness 1.1 cm 0.6 - 1.0 / 0.6 - 0.9 cm LVPW Diastolic Thickness 0.9 cm 0.6 - 1.0 / 0.6 - 0.9 cm LV Relative Wall Thickness 0.4 LVOT Diameter 1.8 cm Aortic Root Diameter 2.7 cm LA Systolic Diameter LX 3.7 cm 3.0 - 4.0 / 2.7 - 3.8 cm LV Diastolic Volume MOD BP 37.2 cm??? 67 - 155 / 56 - 104 cm??? LV Systolic Volume MOD BP 13.1 cm??? 22 - 58 / 19 - 49 cm??? LV Ejection Fraction MOD BP 64.7 % >= 55 % LV Cardiac Index MOD BP 1012.4 cm???/min???m??? LV Diastolic Volume MOD 4C 38.7 cm??? LV Systolic Volume MOD 4C 11.9 cm??? LV Ejection Fraction MOD 4C 69.3 % LV Cardiac Index MOD 4C 1128.2 cm???/min???m??? LV Diastolic Length 4C 5.0 cm LV Systolic Length 4C 4.0 cm LV Diastolic Volume MOD 2C 30.8 cm??? LV Systolic Volume MOD 2C 12.6 cm??? LV Ejection Fraction MOD 2C 59.2 % LV Cardiac Index MOD 2C 767.4 cm???/min???m??? LV Diastolic Length 2C 6.0 cm LV Systolic Length 2C 4.8 cm LA Volume 25.3 cm??? 18 - 58 / 22 - 52 cm??? LA Volume Index 14.0 cm???/m??? 16 - 28 cm???/m??? DOPPLER AV Peak Velocity 126.3 cm/s AV Peak Gradient 6.4 mmHg AV Mean Velocity 77.2 cm/s AV Mean Gradient 2.7 mmHg AV Velocity Time Integral 34.6 cm LVOT Peak Velocity 108.8 cm/s LVOT Peak Gradient 4.7 mmHg LVOT Velocity Time Integral 27.9 cm LVOT Stroke Volume 70.4 cm??? LVOT Stroke Volume Index 43.8 ml/m??? LVOT Cardiac Index 2959.3 cm???/min???m??? AV Area Cont Eq vti 2.0 cm??? AV Area Cont Eq pk 2.2 cm??? MV Area PHT 4.3 cm??? Mitral E Point Velocity 98.2 cm/s Mitral A Point Velocity 105.2 cm/s Mitral E to A Ratio 0.9 MV Deceleration Time 177.4 ms TR Peak Velocity 237.1 cm/s TR Peak Gradient 22.5 mmHg PV Peak Velocity 102.8 cm/s PV Peak Gradient 4.2 mmHg FINDINGS Left Ventricle Mildly increased septal wall thickness. Left ventricular ejection fraction is estimated at 55-60%. Normal Left ventricular size, wall thickness, systolic function with no obvious regional wall motion abnormalities. Right Ventricle Normal right ventricular size and function. Unable to estimate the right ventricular systolic pressure. Right Atrium Normal right atrial size. Left Atrium Normal left atrial size. Mitral Valve Mild mitral regurgitation. Aortic Valve Trileaflet aortic valve. Tricuspid Valve Mild tricuspid regurgitation. Pulmonic Valve No pulmonic regurgitation. Pericardium No pericardial effusion. Aorta Normal size aortic root. CONCLUSIONS Previous echo recorded on 10/31/2023. Normal LV systolic function Previewed by: Dr. Travis Dahl MD (Electronically Signed) Final Date: 06 January 2024 13:37
[2024-01-06 16:33] LABS: Glucose,Whole Blood 136 mg/dL (70-110)
[2024-01-06 18:10] LABS: Anisocytosis Slight; HCT 23.5 % (34.0-46.0); HGB 7.7 gm/dL (11.4-16.0); Hypochromasia Slight; MCH 27.6 pg (25.0-35.0); MCHC 32.6 g/dL (31.0-37.0); MCV 84.7 fL (80.0-100.0); Mean Platelet Volume 7.3; Platelet Count 256 k/uL (150-450); Poikilocytosis Slight; RBC 2.77 m/uL (3.80-5.40); RDW 16.1 % (11.5-15.5); WBC 9.1 k/uL (3.8-10.6)
[2024-01-06 19:58] LABS: Glucose,Whole Blood 127 mg/dL (70-110)
--- NOTE | 2024-01-06 21:47 | P.CONS ---
History of Present Illness - Reason for Consult Consult date: 01/06/24 Positive blood culture Requesting physician: Serge Riojas - Chief Complaint Weakness and mental status changes x few days - History of Present Illness Patient is a 78-year-old female past medical history pertinent for diabetes mellitus hypertension hyperlipidemia dementia and depression brought into the hospital 2 days ago for evaluation of worsening dementia patient apparently did have history of prior pelvic fracture with a chronic pelvic pain as well as chronic left shoulder pain and the patient noticed to have worsening confusion decreased appetite with the symptoms the patient was evaluated on presentation to the hospital patient did have a low-grade fever of 99.6 patient has been mostly afebrile during this hospital stay not tachycardic hypotensive or hypoxic patient did have a white count of 19.3 that is down to 9.1 today BUN/creatinine has been mildly elevated liver enzymes are normal did have a positive UA urine drug screen was positive for opiates influenza RSV COVID testing was negative patient blood cultures came back positive with MSSA 2 out of 2 urine is growing gram-negative bacilli patient is currently on Rocephin infectious disease was consulted for further management of antibiotic therapy, patient did have my evaluation denies having any fever or any chills she is breathing comfortably on room air patient denies having any chest pain shortness of breath or cough no nausea vomiting no abdominal pain no diarrhea patient has just been given about by the nurse aide and mention the patient did have some excoriation to the sacral area but no evidence of any skin ulcer or any erythema Review of Systems Positive point and negatives has been mentioned in the HPI, complete review of systems was performed and all other systems are negative Past Medical History Past Medical History: Dementia, Diabetes Mellitus, Hyperlipidemia, Hypertension, Thyroid Disorder History of Any Multi-Drug Resistant Organisms: None Reported Past Surgical History: Unable to Obtain Past Anesthesia/Blood Transfusion Reactions: No Reported Reaction Past Psychological History: Depression Smoking Status: Never smoker Past Alcohol Use History: None Reported Past Drug Use History: None Reported - Past Family History Brother(s) Additional Family Medical History / Comment(s): Unable to obtain due to patient's underlying dementia Medications and Allergies Home Medications Medication Instructions Recorded Confirmed Type Acetaminophen Tab [Tylenol] 500 mg PO Q6H PRN 07/27/22 01/04/24 History Aspirin EC [Ecotrin Low Dose] 81 mg PO DAILY 07/27/22 01/04/24 History Citalopram Hydrobromide 20 mg PO DAILY 07/27/22 01/04/24 History [Citalopram HBr] Cyanocobalamin (Vitamin B-12) 1,000 mcg PO DAILY 07/27/22 01/04/24 History [Vitamin B-12] Levothyroxine Sodium 100 mcg PO DAILY 07/27/22 01/04/24 History Simvastatin [Zocor] 80 mg PO DAILY 07/27/22 01/04/24 History Carbidopa-Levodopa 25-100 mg 1 tab PO QID 10/30/23 01/04/24 History [Sinemet 25-100 mg] Ferrous Sulfate [Iron (65 MG 325 mg PO DAILY 01/04/24 01/04/24 History Elemental)] Ascorbic Acid [Vitamin C] 500 mg PO DAILY tab 01/22/24 Rx Darbepoetin Nikolas [Aranesp] 40 mcg SQ Q7D #7 each 01/22/24 Rx Furosemide [Lasix] 60 mg PO DAILY tab 01/22/24 Rx INSULIN ASPART (NovoLOG) [NovoLOG 0 unit SQ ACHS each 01/22/24 Rx (formulary)] Lacosamide [Vimpat] 100 mg PO BID 3 Days #6 tab 01/22/24 Rx Magnesium Oxide [Mag-Ox] 400 mg PO DAILY tab 01/22/24 Rx Mirtazapine [Remeron] 7.5 mg PO HS tab 01/22/24 Rx Pantoprazole [Protonix] 40 mg PO BID #20 tab 01/22/24 Rx amLODIPine [Norvasc] 5 mg PO DAILY #0 tab 01/22/24 Rx cefTRIAXone [Rocephin] 2 gm IVPB Q24HR #30 each 01/22/24 Rx polyethylene glycoL 3350 [Miralax] 17 gm PO DAILY packet 01/22/24 Rx Allergies Allergy/AdvReac Type Severity Reaction Status Date / Time peanut AdvReac "Watery Verified 01/11/24 12:36 eyes" Physical Exam Vitals: Vital Signs Temp Pulse Pulse Resp BP BP Pulse Ox 01/06/24 08:06 97.6 F 72 16 134/65 94 L 01/06/24 04:00 98.1 F 70 8 L 116/60 97 01/06/24 02:00 72 16 01/06/24 00:00 98.3 F 72 16 112/56 97 01/05/24 20:00 98.5 F 80 20 128/71 98 01/05/24 17:42 72 18 01/05/24 17:09 97.9 F 77 16 118/65 98 01/05/24 16:42 97.9 F 72 18 110/57 99 01/05/24 15:14 98.1 F 77 16 99/53 01/05/24 14:54 98.6 F 81 16 107/53 01/05/24 14:44 98.4 F 80 16 97/52 01/05/24 14:00 73 16 01/05/24 11:31 98.4 F 73 18 118/62 98 Intake and Output 01/05/24 01/06/24 01/06/24 22:59 06:59 14:59 Intake Total 390 540 Output Total 150 420 Balance 240 120 Intake: IV 300 Sodium Chloride 0.9% 1, 300 000 ml @ 75 mls/hr IV . [id number] [facility] Rx#:[id number] Oral 110 240 Blood Product 280 Rc Pheresis As-3 Unit 280 [id number] Output: Urine 150 420 Other: Voiding Method Indwelling Catheter Indwelling Catheter GENERAL DESCRIPTION: Elderly female lying in bed, no distress. No tachypnea or accessory muscle of respiration use. HEENT: Shows Pallor , no scleral icterus. Oral mucous membrane is dry. No pharyngeal erythema or thrush NECK: Trachea central, no thyromegaly. LUNGS: Unlabored breathing. Decreased breath sound the base HEART: S1, S2, regular rate and rhythm. No loud murmur ABDOMEN: Soft, no tenderness , guarding or rigidity, no organomegaly EXTREMITIES: No edema of feet. SKIN: No rash, no masses palpable. NEUROLOGICAL: The patient is awake, alert, mood and affect normal. Results CBC & Chem 7: 01/21/24 07:25 01/22/24 07:28 Labs: Abnormal Lab Results - Last 24 Hours (Table) 01/05/24 01/05/24 01/05/24 Range/Units 06:52 06:52 10:11 WBC (3.8-10.6) k/uL RBC (3.80-5.40) m/uL Hgb (11.4-16.0) gm/dL Hct (34.0-46.0) % RDW (11.5-15.5) % Neutrophils # (1.3-7.7) k/uL Sodium (137-145) mmol/L BUN (7-17) mg/dL Creatinine (0.52-1.04) mg/dL Glucose (74-99) mg/dL POC Glucose (mg/dL) (70-110) mg/dL Hemoglobin A1c 6.1 H (<=6.0) % Magnesium (1.6-2.3) mg/dL Iron 10 L (50-170) UG/DL TIBC 199 L (228-460) UG/DL % Saturation 5.03 L (12.00-45.00) Transferrin 142.0 L (204.0-354.0) mg/dL Crossmatch See Detail 01/05/24 01/05/24 01/05/24 Range/Units 11:18 16:20 20:17 WBC (3.8-10.6) k/uL RBC (3.80-5.40) m/uL Hgb (11.4-16.0) gm/dL Hct (34.0-46.0) % RDW (11.5-15.5) % Neutrophils # (1.3-7.7) k/uL Sodium (137-145) mmol/L BUN (7-17) mg/dL Creatinine (0.52-1.04) mg/dL Glucose (74-99) mg/dL POC Glucose (mg/dL) 118 H 160 H 174 H (70-110) mg/dL Hemoglobin A1c (<=6.0) % Magnesium (1.6-2.3) mg/dL Iron (50-170) UG/DL TIBC (228-460) UG/DL % Saturation (12.00-45.00) Transferrin (204.0-354.0) mg/dL Crossmatch 01/05/24 01/05/24 01/06/24 Range/Units 20:28 23:39 06:02 WBC 11.2 H 11.6 H (3.8-10.6) k/uL RBC 2.59 L 2.65 L 2.70 L (3.80-5.40) m/uL Hgb 7.3 L 7.3 L 7.4 L (11.4-16.0) gm/dL Hct 22.0 L 22.4 L 22.7 L (34.0-46.0) % RDW 15.9 H 16.1 H 16.1 H (11.5-15.5) % Neutrophils # 9.1 H (1.3-7.7) k/uL Sodium (137-145) mmol/L BUN (7-17) mg/dL Creatinine (0.52-1.04) mg/dL Glucose (74-99) mg/dL POC Glucose (mg/dL) (70-110) mg/dL Hemoglobin A1c (<=6.0) % Magnesium (1.6-2.3) mg/dL Iron (50-170) UG/DL TIBC (228-460) UG/DL % Saturation (12.00-45.00) Transferrin (204.0-354.0) mg/dL Crossmatch 01/06/24 01/06/24 Range/Units 06:02 06:10 WBC (3.8-10.6) k/uL RBC (3.80-5.40) m/uL Hgb (11.4-16.0) gm/dL Hct (34.0-46.0) % RDW (11.5-15.5) % Neutrophils # (1.3-7.7) k/uL Sodium 132 L (137-145) mmol/L BUN 57 H (7-17) mg/dL Creatinine 3.32 H (0.52-1.04) mg/dL Glucose 135 H (74-99) mg/dL POC Glucose (mg/dL) 161 H (70-110) mg/dL Hemoglobin A1c (<=6.0) % Magnesium 2.4 H (1.6-2.3) mg/dL Iron (50-170) UG/DL TIBC (228-460) UG/DL % Saturation (12.00-45.00) Transferrin (204.0-354.0) mg/dL Crossmatch Microbiology - Last 24 Hours (Table) 01/04/24 10:48 Urine Culture - Preliminary Urine,Catheterized Gram Neg Bacilli 01/04/24 10:55 Blood Culture Gram Stain - Preliminary Blood Blood Culture - Preliminary Presumptive Staph aureus 01/04/24 10:40 Blood Culture Gram Stain - Preliminary Blood Blood Culture - Preliminary Presumptive Staph aureus Assessment and Plan (1) MSSA bacteremia Status: Acute Code(s): R78.81 - BACTEREMIA; B95.61 - METHICILLIN SUSCEP STAPH INFCT CAUSING DIS CLASSD [id number] SNOMED Code(s): 826139385 (2) Septic arthritis of shoulder, left Status: Acute Code(s): M00.9 - PYOGENIC ARTHRITIS, UNSPECIFIED SNOMED Code(s): 52743544 Plan: 1-1patient is a 78-year-old female with multiple comorbidities presenting to the hospital with confusion and mental status changes did have a low-grade fever elevated white count and now with evidence of MSSA bacteremia source is questionably left shoulder which was large bony defect of the humeral head articular surface which was not seen on October 30, 2023 x-ray as currently no other obvious focus for this bacteremia 2-blood cultures will be repeated document clearance of bacteremia 3-patient will benefit from MRI of the left shoulder and possible aspiration and biopsy to confirm the diagnosis 4-patient is also growing gram-negative in the urine however the patient denies urinary symptoms question of possible asymptomatic bacteriuria 5-we will discontinue Rocephin 6-start the patient on cefazolin 2 g every 12 hours dose adjusted to the kidney function We will follow on clinical condition and cultures to further adjust medication if needed Thank you for this consultation we will follow the patient along with you Dictation was produced using [employer] dictation software. please excuse any grammatical, word or spelling errors. Time with Patient: Greater than 30
[2024-01-06 23:34] LABS: Appearance,Urine Cloudy (Clear); Bacteria,Urine Occasional /hpf; Bilirubin,Urine Negative (Negative); Blood,Urine Moderate (Negative); Color,Urine Light Red; Glucose,Urine (UA) Negative (Negative); Ketones,Urine Negative (Negative); Leukocyte Esterase,Urine Moderate (Negative); Mucus,Urine Rare /hpf; Nitrite,Urine Negative (Negative); PH, Urine 5.5 (5.0-8.0); Protein,Urine 1+ (Negative); RBC,Urine >182 /hpf (0-5); Squamous Epithelial Cell,Urine 5 /hpf (0-4); Urobilinogen,Urine <2.0 mg/dL (<2.0); WBC,Urine 32 /hpf (0-5)
[2024-01-07 06:04] LABS: Glucose,Whole Blood 111 mg/dL (70-110)
[2024-01-07 08:46] LABS: Anisocytosis Slight; Basophils % (A) 0 %; Eosinophils % (A) 0 %; HCT 24.3 % (34.0-46.0); HGB 7.9 gm/dL (11.4-16.0); Hypochromasia Slight; Lymphocytes % (A) 10 %; MCH 27.6 pg (25.0-35.0); MCHC 32.5 g/dL (31.0-37.0); MCV 84.9 fL (80.0-100.0); Mean Platelet Volume 8.1; Monocytes # (A) 0.3 k/uL (0-1.0); Monocytes % (A) 3 %; Neutrophils # (A) 8.8 k/uL (1.3-7.7); Neutrophils % (A) 86 %; Platelet Count 286 k/uL (150-450); Poikilocytosis Slight; RBC 2.86 m/uL (3.80-5.40); RDW 16.1 % (11.5-15.5); WBC 10.2 k/uL (3.8-10.6)
--- NOTE | 2024-01-07 10:50 | P.PN ---
Subjective Patient is seen for follow-up for acute kidney injury. She is comfortable with no significant complaints. Urine culture is growing gram-negative bacilli and blood cultures are growing staph aureus. Serum creatinine 3.3 yesterday. Labs are pending from today. Urine output documented at 550 mL for 24 hours. Patient is maintained on IV fluids. Objective - Vital Signs Vital signs: Vital Signs Temp 98.1 F 01/07/24 04:00 Pulse 70 01/07/24 04:00 Resp 18 01/07/24 04:00 BP 142/71 01/07/24 04:00 Pulse Ox 96 01/07/24 04:00 FiO2 Intake & Output 01/06/24 01/07/24 01/07/24 18:59 06:59 18:59 Intake Total 350 Output Total 200 350 Balance -200 0 Intake: IV 300 Sodium Chloride 0.9% 1, 300 000 ml @ 75 mls/hr IV . [id number] [facility] Rx#:[id number] Intake, IV Titration 50 Amount ceFAZolin 2 gm In Sodium 50 Chloride 0.9% 50 ml @ 100 mls/hr IVPB Q12HR [facility] Rx #:[id number] Oral 0 Output: Urine 200 350 Other: Voiding Method Indwelling Catheter Indwelling Catheter - Exam Patient is awake, comfortable, no acute distress Examination of the heart S1 and S2 Examination of the lungs decreased breath sounds at the bases Abdomen is soft nontender Examination of lower extremities shows no significant edema. [employer] exam shows patient is moving all 4 extremities. - Labs CBC & Chem 7: 01/07/24 07:28 01/06/24 06:02 Labs: Abnormal Lab Results - Last 24 Hours (Table) 01/06/24 01/06/24 01/06/24 Range/Units 10:55 11:15 16:31 RBC 2.77 L (3.80-5.40) m/uL Hgb 7.7 L (11.4-16.0) gm/dL Hct 23.6 L (34.0-46.0) % RDW 16.2 H (11.5-15.5) % Neutrophils # (1.3-7.7) k/uL POC Glucose (mg/dL) 164 H 136 H (70-110) mg/dL Urine Appearance (Clear) Urine Protein (Negative) Urine Blood (Negative) Ur Leukocyte Esterase (Negative) Urine RBC (0-5) /hpf Urine WBC (0-5) /hpf Ur Squamous Epith Cells (0-4) /hpf Urine Bacteria (None) /hpf Urine Mucus (None) /hpf 01/06/24 01/06/24 01/06/24 Range/Units 17:45 19:57 22:43 RBC 2.77 L (3.80-5.40) m/uL Hgb 7.7 L (11.4-16.0) gm/dL Hct 23.5 L (34.0-46.0) % RDW 16.1 H (11.5-15.5) % Neutrophils # (1.3-7.7) k/uL POC Glucose (mg/dL) 127 H (70-110) mg/dL Urine Appearance Cloudy H (Clear) Urine Protein 1+ H (Negative) Urine Blood Moderate H (Negative) Ur Leukocyte Esterase Moderate H (Negative) Urine RBC >182 H (0-5) /hpf Urine WBC 32 H (0-5) /hpf Ur Squamous Epith Cells 5 H (0-4) /hpf Urine Bacteria Occasional H (None) /hpf Urine Mucus Rare H (None) /hpf 01/07/24 01/07/24 Range/Units 06:01 07:28 RBC 2.86 L (3.80-5.40) m/uL Hgb 7.9 L (11.4-16.0) gm/dL Hct 24.3 L (34.0-46.0) % RDW 16.1 H (11.5-15.5) % Neutrophils # 8.8 H (1.3-7.7) k/uL POC Glucose (mg/dL) 111 H (70-110) mg/dL Urine Appearance (Clear) Urine Protein (Negative) Urine Blood (Negative) Ur Leukocyte Esterase (Negative) Urine RBC (0-5) /hpf Urine WBC (0-5) /hpf Ur Squamous Epith Cells (0-4) /hpf Urine Bacteria (None) /hpf Urine Mucus (None) /hpf Microbiology - Last 24 Hours (Table) 01/04/24 10:55 Blood Culture Gram Stain - Final Blood Blood Culture - Final Staphylococcus aureus 01/04/24 10:40 Blood Culture Gram Stain - Final Blood Blood Culture - Final Staphylococcus aureus 01/04/24 10:48 Urine Culture - Final Urine,Catheterized Escherichia coli Assessment and Plan Assessment: 1. Acute kidney injury, ATN secondary to severe anemia and sepsis. Currently with indwelling Rodriguez catheter. UA shows 2+ protein large blood and WBCs 69. Ultrasound shows no hydronephrosis on the right kidney. Left kidney could not be visualized due to patient position. CT scan shows no evidence of obstructive uropathy. Urine output slightly improved. Maintained on IV fluids. 2. Acute blood loss anemia, most likely GI bleed. Being transfused packed RBCs. Iron studies show significant iron deficiency however at this time in view of positive blood cultures I will hold the IV iron until 2 to 3 days of being on antibiotics. 3. Hyperkalemia on admission associated with acute kidney injury, currently improved 4. Hypertension with blood pressure currently on the lower side. 5. UTI with urine culture growing E. coli 6. Bacteremia with blood cultures growing Staph aureus Plan: Maintain IV fluids Continue empiric antibiotics Hold iron until active infection is under control. Continue to hold metformin and diuretics. Check labs today
[2024-01-07 10:51] LABS: ALT <6 U/L (4-34); AST 18 U/L (14-36); African American GFR (CKD) 13 (>60 ml/min/1.73 sqM); Albumin 2.2 g/dL (3.5-5.0); Alkaline Phosphatase 93 U/L (38-126); Anion Gap 9 mmol/L; Blood Urea Nitrogen 54 mg/dL (7-17); C Reactive Protein 6.3 mg/dL (<1.0); Calcium 8.6 mg/dL (8.4-10.2); Carbon Dioxide 18 mmol/L (22-30); Chloride 109 mmol/L (98-107); Glucose 95 mg/dL (74-99); Magnesium 2.2 mg/dL (1.6-2.3); Non-African American GFR(CKD) 11 (>60 ml/min/1.73 sqM); Potassium 4.1 mmol/L (3.5-5.1); Sodium 136 mmol/L (137-145); Total Bilirubin 0.3 mg/dL (0.2-1.3); Total Protein 5.4 g/dL (6.3-8.2)
[2024-01-07 11:31] LABS: Glucose,Whole Blood 111 mg/dL (70-110)
--- NOTE | 2024-01-07 12:59 | P.PN ---
Subjective Progress Note Date: 01/07/24 Hospital course: Patient is a very pleasant 78-year-old female with a past medical history of Alzheimer's dementia with baseline mentation alert and oriented x 1-2, hypertension, hyperlipidemia, hypothyroidism, [id number] diabetes mellitus, iron deficiency anemia, recurrent UTIs, and history of prior pelvic fracture with chronic pelvic pain. She presented to the emergency department with a chief complaint of worsening confusion. Patient's reports that his is normally confused but he has noticed worsening confusion and a decreased appetite over the past few days. She underwent full evaluation in the emergency department. Vital signs upon arrival show blood pressure 132/63, heart rate 96, respiratory rate 20, temp 99.6 F, and SpO2 of 100% on room air. EKG completed showing normal sinus rhythm at 98 bpm with no significant T wave or ST abnormalities showing no signs of acute ischemia upon personal review and interpretation. CT brain completed and negative for acute intracranial process with radiology report stating stable chronic appearing patchy periventricular white matter ischemic changes with atrophy. Chest x-ray completed and was negative for acute cardiopulmonary process. X-ray left shoulder completed showing large bony defect in the humeral head articular surface. Pelvis x-ray completed showing known superior and inferior pubic rami fracture on the right reporting these as subacute incompletely healed fractures but reporting the superior pubic ramus fracture has displaced now by 9 mm versus 3 mm previously. Labs were completed and reviewed. CBC showing leukocytosis with a WBC count of 19.3 and hemoglobin of 7.4 (with a baseline hemoglobin of around 7.5). BMP showing hyponatremia with sodium of 133, hyperkalemia with potassium of 5.4, hypochloremia with chloride of 97, and an acute kidney injury with BUN of 62, creatinine 2.93, and GFR of 15 with baseline creatinine of 0.9. Calcium high at 11.8. Liver profile showing no significant abnormalities with the exception of low albumin of 2.9. Initial troponin elevated at 0.251. Urinalysis positive for protein, ketones, blood, leukocyte esterase, greater than 182 RBCs, and 69 WBCs. Influenza A, influenza B, COVID, and RSV were negative. Patient was admitted under our services with consultation to cardiology, nephrology and orthopedic surgery. Troponins trended overnight resulting at 0.251, 0.432, and 0.505. Orthopedic surgery evaluated, recommending conservative measures with use of sling to left upper extremity. Orthopedic team also recommending patient may perform gentle range of motion exercises of left upper extremity as tolerated, remain nonweightbearing to left upper extremity and in regards to pubic rami fracture patient may be weightbearing as tolerated and ambulate with walker with assistance. Renal function continues to worsen. Nephrology also consulted. Patient also found to have MSSA bacteremia. ID also consulted. Currently on IV antibiotics. Source unclear. Subjective: Patient seen and examined at bedside. No acute events overnight. Denies any pain at the moment. No new complaints. Rodriguez catheter in place. Physical exam: Vital signs reviewed and stable. General: Nontoxic, no acute distress and appears stated age. Derm: Skin warm and dry, normal coloration for ethnicity. Head: Atraumatic, normocephalic and symmetric. Eyes: EOMs intact, no lid lag, and anicteric sclera Mouth: no lip lesions, mucus membranes moist Cardiovascular: regular rate and rhythm with normal S1S2, systolic murmur, positive posterior tibial pulses bilaterally, and cap refill < 2 seconds. Lungs: Respirations even, regular, and unlabored on room air. Lungs CTA bilaterally, no rhonchi, no rales, no wheezing, and no accessory muscle usage. Abdominal: soft, nontender to palpation, no guarding, no appreciable organomegaly Ext: Left upper extremity in a sling Neuro: Speech clear, face symmetrical and CN II-XII grossly intact with no noted focal neuro deficits Psych: Alert and oriented x 1. She was pleasant and cooperative. Assessment and Plan of Care: Patient is severely ill, needs close monitoring. Prognosis guarded. MSSA bacteremia, unclear source UTI unlikely Acute kidney injury with oliguria, worsening Acute on chronic Iron Deficiency anemia, status post 1 unit of PRBCs Hyperkalemia, resolved -Nephrology note reviewed, continue IV fluids, empiric antibiotics, hold IV iron, hold metformin and diuretics -Continue normal saline at 75 cc an hour -Hemoglobin slightly improved, no active bleeding -ID following, patient maintained on cefazolin 2 g IV every 12 hours -Repeat blood cultures pending -Echocardiogram does not show any valvular vegetation, may need JAMES -Patient to remain on continuous telemetry monitoring. -Continue ferrous sulfate 325 mg daily, and ascorbic acid, hold off IV iron Elevated troponins, type II NSTEMI -Chest pain-free, cardiology signed off -Continue aspirin 81 mg daily and atorvastatin 40 mg daily. -Patient to remain on continuous telemetry monitoring Acute metabolic encephalopathy, secondary to worsening Alzheimer's dementia versus above Alzheimer's dementia -CT brain completed and negative for acute intracranial process with radiology report stating stable chronic appearing patchy periventricular white matter ischemic changes with atrophy. -Provide safe and supportive care with redirection and assistance as needed. -Continue daily medication regimen with carbidopa levodopa 25/100 mg tablets 4 times daily. Left shoulder and pelvic pain Right-sided superior and inferior pubic rami fractures, chronic Left shoulder humeral head collapse, possibly secondary to AVN vs neuropathic arthropathy -X-ray left shoulder completed showing large bony defect in the humeral head articular surface. -Pelvis x-ray completed showing known superior and inferior pubic rami fracture on the right reporting these as subacute incompletely healed fractures but reporting the superior pubic ramus fracture has displaced now by 9 mm versus 3 mm previously. -Patient to be provided with symptomatic care and pain management. -Fall precautions in place. -Orthopedic surgery consulted, recommending conservative measures with use of sling to left upper extremity. Orthopedic team also recommending patient may perform gentle range of motion exercises of left upper extremity as tolerated, remain nonweightbearing to left upper extremity and in regards to pubic rami fracture patient may be weightbearing as tolerated and ambulate with walker with assistance. Type II non-insulin dependent diabetes mellitus -Continue to hold metformin -Continue sliding scale insulin, monitor for hypoglycemia Hypothyroidism -Continue daily medication regimen with levothyroxine 100 mcg daily. -TSH 1.200 Data and imaging reviewed: WBC 10.2, hemoglobin 7.9, creatinine 3.74 CODE STATUS: DNR/DNI DVT prophylaxis: Heparin Anticipated discharge date: Clinical course to determine Anticipated discharge place: Clinical course to determine Objective - Vital Signs Vital signs: Vital Signs Temp 97.9 F 01/07/24 08:00 Pulse 80 01/07/24 08:00 Resp 18 01/07/24 08:00 BP 167/71 01/07/24 08:00 Pulse Ox 98 01/07/24 08:00 FiO2 Intake & Output 01/06/24 01/07/24 01/07/24 18:59 06:59 18:59 Intake Total 350 Output Total 200 350 Balance -200 0 Intake: IV 300 Sodium Chloride 0.9% 1, 300 000 ml @ 75 mls/hr IV . [id number] [facility] Rx#:[id number] Intake, IV Titration 50 Amount ceFAZolin 2 gm In Sodium 50 Chloride 0.9% 50 ml @ 100 mls/hr IVPB Q12HR [facility] Rx #:[id number] Oral 0 Output: Urine 200 350 Other: Voiding Method Indwelling Catheter Indwelling Catheter Indwelling Catheter - Labs CBC & Chem 7: 01/07/24 07:28 01/07/24 07:28 Labs: Abnormal Lab Results - Last 24 Hours (Table) 01/06/24 01/06/24 01/06/24 Range/Units 16:31 17:45 19:57 RBC 2.77 L (3.80-5.40) m/uL Hgb 7.7 L (11.4-16.0) gm/dL Hct 23.5 L (34.0-46.0) % RDW 16.1 H (11.5-15.5) % Neutrophils # (1.3-7.7) k/uL Sodium (137-145) mmol/L Chloride (98-107) mmol/L Carbon Dioxide (22-30) mmol/L BUN (7-17) mg/dL Creatinine (0.52-1.04) mg/dL POC Glucose (mg/dL) 136 H 127 H (70-110) mg/dL C-Reactive Protein (<1.0) mg/dL Total Protein (6.3-8.2) g/dL Albumin (3.5-5.0) g/dL Urine Appearance (Clear) Urine Protein (Negative) Urine Blood (Negative) Ur Leukocyte Esterase (Negative) Urine RBC (0-5) /hpf Urine WBC (0-5) /hpf Ur Squamous Epith Cells (0-4) /hpf Urine Bacteria (None) /hpf Urine Mucus (None) /hpf 01/06/24 01/07/24 01/07/24 Range/Units 22:43 06:01 07:28 RBC 2.86 L (3.80-5.40) m/uL Hgb 7.9 L (11.4-16.0) gm/dL Hct 24.3 L (34.0-46.0) % RDW 16.1 H (11.5-15.5) % Neutrophils # 8.8 H (1.3-7.7) k/uL Sodium (137-145) mmol/L Chloride (98-107) mmol/L Carbon Dioxide (22-30) mmol/L BUN (7-17) mg/dL Creatinine (0.52-1.04) mg/dL POC Glucose (mg/dL) 111 H (70-110) mg/dL C-Reactive Protein (<1.0) mg/dL Total Protein (6.3-8.2) g/dL Albumin (3.5-5.0) g/dL Urine Appearance Cloudy H (Clear) Urine Protein 1+ H (Negative) Urine Blood Moderate H (Negative) Ur Leukocyte Esterase Moderate H (Negative) Urine RBC >182 H (0-5) /hpf Urine WBC 32 H (0-5) /hpf Ur Squamous Epith Cells 5 H (0-4) /hpf Urine Bacteria Occasional H (None) /hpf Urine Mucus Rare H (None) /hpf 01/07/24 01/07/24 Range/Units 07:28 11:30 RBC (3.80-5.40) m/uL Hgb (11.4-16.0) gm/dL Hct (34.0-46.0) % RDW (11.5-15.5) % Neutrophils # (1.3-7.7) k/uL Sodium 136 L (137-145) mmol/L Chloride 109 H (98-107) mmol/L Carbon Dioxide 18 L (22-30) mmol/L BUN 54 H (7-17) mg/dL Creatinine 3.74 H (0.52-1.04) mg/dL POC Glucose (mg/dL) 111 H (70-110) mg/dL C-Reactive Protein 6.3 H (<1.0) mg/dL Total Protein 5.4 L (6.3-8.2) g/dL Albumin 2.2 L (3.5-5.0) g/dL Urine Appearance (Clear) Urine Protein (Negative) Urine Blood (Negative) Ur Leukocyte Esterase (Negative) Urine RBC (0-5) /hpf Urine WBC (0-5) /hpf Ur Squamous Epith Cells (0-4) /hpf Urine Bacteria (None) /hpf Urine Mucus (None) /hpf Microbiology - Last 24 Hours (Table) 01/04/24 10:55 Blood Culture Gram Stain - Final Blood Blood Culture - Final Staphylococcus aureus 01/04/24 10:40 Blood Culture Gram Stain - Final Blood Blood Culture - Final Staphylococcus aureus 01/04/24 10:48 Urine Culture - Final Urine,Catheterized Escherichia coli
[2024-01-07 13:44] LABS: Erythrocyte Sedimentation Rate 44 mm/Hr (0-30)
--- NOTE | 2024-01-07 14:21 | P.PN ---
Subjective Progress Note Date: 01/07/24 Principal diagnosis: Reason for follow-up is MSSA bacteremia Patient is a 78-year-old female past medical history pertinent for diabetes mellitus hypertension hyperlipidemia dementia and depression brought into the hospital for evaluation of worsening dementia/confusion noticed to have positive UA and did have MSSA bacteremia also abnormality to the left humeral head on the x-ray. On today's evaluation that is 01/07/2024, Patient is afebrile ,patient is currently on room air and denies having any shortness of breath, the patient denies any chest pain or cough, the patient denies any nausea vomiting did not have any abdominal pain and no diarrhea denies any worsening pain to the left shoulder area. Patient white count is 10.2, creatinine is 3.7 4 repeat blood culture pending urine is growing ESBL E. coli Objective - Vital Signs Vital signs: Vital Signs Temp 97.9 F 01/07/24 08:00 Pulse 80 01/07/24 08:00 Resp 18 01/07/24 08:00 BP 167/71 01/07/24 08:00 Pulse Ox 98 01/07/24 08:00 FiO2 Intake & Output 01/06/24 01/07/24 01/07/24 18:59 06:59 18:59 Intake Total 350 Output Total 200 350 Balance -200 0 Intake: IV 300 Sodium Chloride 0.9% 1, 300 000 ml @ 75 mls/hr IV . [id number] [facility] Rx#:[id number] Intake, IV Titration 50 Amount ceFAZolin 2 gm In Sodium 50 Chloride 0.9% 50 ml @ 100 mls/hr IVPB Q12HR [facility] Rx #:[id number] Oral 0 Output: Urine 200 350 Other: Voiding Method Indwelling Catheter Indwelling Catheter Indwelling Catheter - Exam GENERAL DESCRIPTION: An elderly female lying in bed in no distress RESPIRATORY SYSTEM: Unlabored breathing , decreased breath sounds at bases HEART: S1 S2 regular rate and rhythm , ABDOMEN: Soft , no tenderness EXTREMITIES: No edema feet - Labs CBC & Chem 7: 01/07/24 07:28 01/07/24 07:28 Labs: Abnormal Lab Results - Last 24 Hours (Table) 01/06/24 01/06/24 01/06/24 Range/Units 16:31 17:45 19:57 RBC 2.77 L (3.80-5.40) m/uL Hgb 7.7 L (11.4-16.0) gm/dL Hct 23.5 L (34.0-46.0) % RDW 16.1 H (11.5-15.5) % Neutrophils # (1.3-7.7) k/uL Sodium (137-145) mmol/L Chloride (98-107) mmol/L Carbon Dioxide (22-30) mmol/L BUN (7-17) mg/dL Creatinine (0.52-1.04) mg/dL POC Glucose (mg/dL) 136 H 127 H (70-110) mg/dL C-Reactive Protein (<1.0) mg/dL Total Protein (6.3-8.2) g/dL Albumin (3.5-5.0) g/dL Urine Appearance (Clear) Urine Protein (Negative) Urine Blood (Negative) Ur Leukocyte Esterase (Negative) Urine RBC (0-5) /hpf Urine WBC (0-5) /hpf Ur Squamous Epith Cells (0-4) /hpf Urine Bacteria (None) /hpf Urine Mucus (None) /hpf 01/06/24 01/07/24 01/07/24 Range/Units 22:43 06:01 07:28 RBC 2.86 L (3.80-5.40) m/uL Hgb 7.9 L (11.4-16.0) gm/dL Hct 24.3 L (34.0-46.0) % RDW 16.1 H (11.5-15.5) % Neutrophils # 8.8 H (1.3-7.7) k/uL Sodium (137-145) mmol/L Chloride (98-107) mmol/L Carbon Dioxide (22-30) mmol/L BUN (7-17) mg/dL Creatinine (0.52-1.04) mg/dL POC Glucose (mg/dL) 111 H (70-110) mg/dL C-Reactive Protein (<1.0) mg/dL Total Protein (6.3-8.2) g/dL Albumin (3.5-5.0) g/dL Urine Appearance Cloudy H (Clear) Urine Protein 1+ H (Negative) Urine Blood Moderate H (Negative) Ur Leukocyte Esterase Moderate H (Negative) Urine RBC >182 H (0-5) /hpf Urine WBC 32 H (0-5) /hpf Ur Squamous Epith Cells 5 H (0-4) /hpf Urine Bacteria Occasional H (None) /hpf Urine Mucus Rare H (None) /hpf 01/07/24 01/07/24 Range/Units 07:28 11:30 RBC (3.80-5.40) m/uL Hgb (11.4-16.0) gm/dL Hct (34.0-46.0) % RDW (11.5-15.5) % Neutrophils # (1.3-7.7) k/uL Sodium 136 L (137-145) mmol/L Chloride 109 H (98-107) mmol/L Carbon Dioxide 18 L (22-30) mmol/L BUN 54 H (7-17) mg/dL Creatinine 3.74 H (0.52-1.04) mg/dL POC Glucose (mg/dL) 111 H (70-110) mg/dL C-Reactive Protein 6.3 H (<1.0) mg/dL Total Protein 5.4 L (6.3-8.2) g/dL Albumin 2.2 L (3.5-5.0) g/dL Urine Appearance (Clear) Urine Protein (Negative) Urine Blood (Negative) Ur Leukocyte Esterase (Negative) Urine RBC (0-5) /hpf Urine WBC (0-5) /hpf Ur Squamous Epith Cells (0-4) /hpf Urine Bacteria (None) /hpf Urine Mucus (None) /hpf Microbiology - Last 24 Hours (Table) 01/06/24 06:05 Blood Culture - Preliminary Blood 01/04/24 10:55 Blood Culture Gram Stain - Final Blood Blood Culture - Final Staphylococcus aureus 01/04/24 10:40 Blood Culture Gram Stain - Final Blood Blood Culture - Final Staphylococcus aureus 01/04/24 10:48 Urine Culture - Final Urine,Catheterized Escherichia coli Assessment and Plan (1) MSSA bacteremia Current Visit: Yes Status: Acute Code(s): R78.81 - BACTEREMIA; B95.61 - METHICILLIN SUSCEP STAPH INFCT CAUSING DIS CLASSD [id number] SNOMED Code(s): 710898095 Plan: 1-1patient is a 78-year-old female with multiple comorbidities presenting to the hospital with confusion and mental status changes did have a low-grade fever elevated white count and now with evidence of MSSA bacteremia source is questionably left shoulder which was large bony defect of the humeral head articular surface which was not seen on October 30, 2023 x-ray as currently no other obvious focus for this bacteremia, 2-blood cultures will be repeated document clearance of bacteremia 3-patient will benefit from MRI of the left shoulder and possible aspiration and biopsy to confirm the diagnosis 4-patient is also growing ESBL E. coli in the urine however the patient denies urinary symptoms question of possible asymptomatic bacteriuria 5-patient to continue with cefazolin dose adjusted to the kidney function, no need for any systemic antibiotic before the positive urine culture Dictation was produced using [employer] dictation software. please excuse any grammatical, word or spelling errors. Time with Patient: Less than 30
[2024-01-07 16:15] LABS: Glucose,Whole Blood 134 mg/dL (70-110)
[2024-01-07 20:06] LABS: Glucose,Whole Blood 133 mg/dL (70-110)
[2024-01-07] MEDS: MORPHINE SULFATE 2 MG/ML SYRINGE IVP PRN (23:47)
[2024-01-08 06:03] LABS: Glucose,Whole Blood 103 mg/dL (70-110)
[2024-01-08 07:46] LABS: Anisocytosis Slight; Basophils % (A) 0 %; Eosinophils % (A) 0 %; HCT 23.8 % (34.0-46.0); HGB 7.7 gm/dL (11.4-16.0); Hypochromasia Moderate; Lymphocytes # (A) 1.2 k/uL (1.0-4.8); Lymphocytes % (A) 11 %; MCH 27.4 pg (25.0-35.0); MCHC 32.2 g/dL (31.0-37.0); MCV 85.2 fL (80.0-100.0); Mean Platelet Volume 7.5; Monocytes # (A) 0.4 k/uL (0-1.0); Monocytes % (A) 4 %; Neutrophils # (A) 8.7 k/uL (1.3-7.7); Neutrophils % (A) 84 %; Platelet Count 281 k/uL (150-450); Poikilocytosis Slight; RBC 2.79 m/uL (3.80-5.40); RDW 16.1 % (11.5-15.5); WBC 10.4 k/uL (3.8-10.6)
[2024-01-08 07:54] LABS: ALT <6 U/L (4-34); AST 16 U/L (14-36); African American GFR (CKD) 11 (>60 ml/min/1.73 sqM); Albumin 2.1 g/dL (3.5-5.0); Alkaline Phosphatase 92 U/L (38-126); Anion Gap 9 mmol/L; Blood Urea Nitrogen 52 mg/dL (7-17); Calcium 8.1 mg/dL (8.4-10.2); Carbon Dioxide 17 mmol/L (22-30); Chloride 111 mmol/L (98-107); Glucose 91 mg/dL (74-99); Non-African American GFR(CKD) 10 (>60 ml/min/1.73 sqM); Potassium 4.2 mmol/L (3.5-5.1); Sodium 137 mmol/L (137-145); Total Bilirubin 0.3 mg/dL (0.2-1.3); Total Protein 5.2 g/dL (6.3-8.2)
[2024-01-08] MEDS: ceFAZolin 1 GM in DEXTROSE/WATER 1 50ML.BAG IVPB SCH (08:01)
[2024-01-08] MEDS ORDERED: hydrALAZINE HCL 20 MG/ML 1 ML VIAL IVP PRN (10:02)
--- NOTE | 2024-01-08 10:04 | P.PN ---
Subjective Patient is seen in follow-up for acute kidney injury. Renal function continues to worsen. Creatinine 4.05 today. Hemoglobin stable at 7.7. Urine output documented as 550 cc in the last 24 hours. Receiving IV fluids. Poor historian. Vital signs are stable. General: No acute distress. HEENT: Head exam is unremarkable. LUNGS: No audible rhonchi or wheezes. HEART: Rate and Rhythm are regular. ABDOMEN: Nontender. EXTREMITITES: No edema. Objective - Vital Signs Vital signs: Vital Signs Temp 97.9 F 01/08/24 07:58 Pulse 78 01/08/24 07:58 Resp 16 01/08/24 07:58 BP 174/78 01/08/24 07:58 Pulse Ox 96 01/08/24 07:58 FiO2 Intake & Output 01/07/24 01/08/24 01/08/24 18:59 06:59 18:59 Intake Total 225 Output Total 200 225 Balance -200 0 Intake: IV 225 Sodium Chloride 0.9% 1, 225 000 ml @ 75 mls/hr IV . [id number] [facility] Rx#:[id number] Output: Urine 200 225 Other: Voiding Method Indwelling Catheter Indwelling Catheter # Bowel Movements 2 - Labs CBC & Chem 7: 01/08/24 07:00 01/08/24 07:00 Labs: Abnormal Lab Results - Last 24 Hours (Table) 01/07/24 01/07/24 01/07/24 Range/Units 07:28 07:28 11:30 RBC (3.80-5.40) m/uL Hgb (11.4-16.0) gm/dL Hct (34.0-46.0) % RDW (11.5-15.5) % Neutrophils # (1.3-7.7) k/uL ESR 44 H (0-30) mm/Hr Sodium 136 L (137-145) mmol/L Chloride 109 H (98-107) mmol/L Carbon Dioxide 18 L (22-30) mmol/L BUN 54 H (7-17) mg/dL Creatinine 3.74 H (0.52-1.04) mg/dL POC Glucose (mg/dL) 111 H (70-110) mg/dL Calcium (8.4-10.2) mg/dL C-Reactive Protein 6.3 H (<1.0) mg/dL Total Protein 5.4 L (6.3-8.2) g/dL Albumin 2.2 L (3.5-5.0) g/dL 01/07/24 01/07/24 01/08/24 Range/Units 16:14 20:04 07:00 RBC 2.79 L (3.80-5.40) m/uL Hgb 7.7 L (11.4-16.0) gm/dL Hct 23.8 L (34.0-46.0) % RDW 16.1 H (11.5-15.5) % Neutrophils # 8.7 H (1.3-7.7) k/uL ESR (0-30) mm/Hr Sodium (137-145) mmol/L Chloride (98-107) mmol/L Carbon Dioxide (22-30) mmol/L BUN (7-17) mg/dL Creatinine (0.52-1.04) mg/dL POC Glucose (mg/dL) 134 H 133 H (70-110) mg/dL Calcium (8.4-10.2) mg/dL C-Reactive Protein (<1.0) mg/dL Total Protein (6.3-8.2) g/dL Albumin (3.5-5.0) g/dL 01/08/24 Range/Units 07:00 RBC (3.80-5.40) m/uL Hgb (11.4-16.0) gm/dL Hct (34.0-46.0) % RDW (11.5-15.5) % Neutrophils # (1.3-7.7) k/uL ESR (0-30) mm/Hr Sodium (137-145) mmol/L Chloride 111 H (98-107) mmol/L Carbon Dioxide 17 L (22-30) mmol/L BUN 52 H (7-17) mg/dL Creatinine 4.05 H (0.52-1.04) mg/dL POC Glucose (mg/dL) (70-110) mg/dL Calcium 8.1 L (8.4-10.2) mg/dL C-Reactive Protein (<1.0) mg/dL Total Protein 5.2 L (6.3-8.2) g/dL Albumin 2.1 L (3.5-5.0) g/dL Microbiology - Last 24 Hours (Table) 01/06/24 06:05 Blood Culture - Preliminary Blood Assessment and Plan Plan: Assessment: 1. Acute kidney injury secondary to ATN secondary to severe sepsis. Creatinine 0.9 dated December 06, 2023. It was elevated at 2.93 this admission and is up to 4.05 today. No hydronephrosis noted on kidney ultrasound/CT. 2. Severe sepsis secondary to Staph aureus bacteremia and E. coli UTI on antibiotics. 3. Metabolic acidosis secondary to acute kidney injury on IV fluids. 4. Acute blood loss anemia status post blood transfusion this admission. Hemoglobin stable. 5. Benign hypertension. Plan: Change IV fluids to bicarb drip. Maintain Rodriguez catheter. Strict I's and O's. Avoid nephrotoxins. Add as needed hydralazine. Continue to monitor renal function and urine output.
--- NOTE | 2024-01-08 10:33 | P.PN ---
Subjective Progress Note Date: 01/08/24 Hospital course: Patient is a very pleasant 78-year-old female with a past medical history of Alzheimer's dementia with baseline mentation alert and oriented x 1-2, hypertension, hyperlipidemia, hypothyroidism, [id number] diabetes mellitus, iron deficiency anemia, recurrent UTIs, and history of prior pelvic fracture with chronic pelvic pain. She presented to the emergency department with a chief complaint of worsening confusion. Patient's reports that his is normally confused but he has noticed worsening confusion and a decreased appetite over the past few days. She underwent full evaluation in the emergency department. Vital signs upon arrival show blood pressure 132/63, heart rate 96, respiratory rate 20, temp 99.6 F, and SpO2 of 100% on room air. EKG completed showing normal sinus rhythm at 98 bpm with no significant T wave or ST abnormalities showing no signs of acute ischemia upon personal review and interpretation. CT brain completed and negative for acute intracranial process with radiology report stating stable chronic appearing patchy periventricular white matter ischemic changes with atrophy. Chest x-ray completed and was negative for acute cardiopulmonary process. X-ray left shoulder completed showing large bony defect in the humeral head articular surface. Pelvis x-ray completed showing known superior and inferior pubic rami fracture on the right reporting these as subacute incompletely healed fractures but reporting the superior pubic ramus fracture has displaced now by 9 mm versus 3 mm previously. Labs were completed and reviewed. CBC showing leukocytosis with a WBC count of 19.3 and hemoglobin of 7.4 (with a baseline hemoglobin of around 7.5). BMP showing hyponatremia with sodium of 133, hyperkalemia with potassium of 5.4, hypochloremia with chloride of 97, and an acute kidney injury with BUN of 62, creatinine 2.93, and GFR of 15 with baseline creatinine of 0.9. Calcium high at 11.8. Liver profile showing no significant abnormalities with the exception of low albumin of 2.9. Initial troponin elevated at 0.251. Urinalysis positive for protein, ketones, blood, leukocyte esterase, greater than 182 RBCs, and 69 WBCs. Influenza A, influenza B, COVID, and RSV were negative. Patient was admitted under our services with consultation to cardiology, nephrology and orthopedic surgery. Troponins trended overnight resulting at 0.251, 0.432, and 0.505. Orthopedic surgery evaluated, recommending conservative measures with use of sling to left upper extremity. Orthopedic team also recommending patient may perform gentle range of motion exercises of left upper extremity as tolerated, remain nonweightbearing to left upper extremity and in regards to pubic rami fracture patient may be weightbearing as tolerated and ambulate with walker with assistance. Renal function continues to worsen. Nephrology following. Patient also found to have MSSA bacteremia and ESBL UTI. ID consulted. Currently on IV antibiotics. Source unclear. Subjective: Patient seen and examined at bedside. No acute events overnight. Patient continues to deny having any pain or complaints. Rodriguez catheter remains in place and documented urinary output over the past 24 hours is 425 mL. Physical exam: Vital signs reviewed and stable. General: Nontoxic, no acute distress and appears stated age. Derm: Skin warm and dry, normal coloration for ethnicity. Head: Atraumatic, normocephalic and symmetric. Eyes: EOMs intact, no lid lag, and anicteric sclera Mouth: no lip lesions, mucus membranes moist Cardiovascular: regular rate and rhythm with normal S1S2, systolic murmur, positive posterior tibial pulses bilaterally, and cap refill < 2 seconds. Lungs: Respirations even, regular, and unlabored on room air. Lungs CTA bilaterally, no rhonchi, no rales, no wheezing, and no accessory muscle usage. Abdominal: soft, nontender to palpation, no guarding, no appreciable organomegaly Ext: Left upper extremity in a sling Neuro: Speech clear, face symmetrical and CN II-XII grossly intact with no noted focal neuro deficits Psych: Alert and oriented x 1. She was pleasant and cooperative. Assessment and Plan of Care: Patient is severely ill, needs close monitoring. Prognosis guarded. MSSA bacteremia, unclear source ESBL UTI Acute kidney injury with oliguria, worsening Non-anion gap metabolic acidosis, secondary to above Acute on chronic Iron Deficiency anemia, status post 1 unit of PRBCs Hyperkalemia, resolved -Nephrology note reviewed, changing IV fluids from normal saline infusion to bicarb drip and adding on as needed hydralazine for hypertension. -Hemoglobin stable at 7.7. -ID following, reviewed documentation in chart, recommending continuation of Cefazolin 1 g IV every 24 hours, Await MRI of the shoulder -Initial blood cultures positive for Staph aureus. Repeat blood cultures showing no growth to date -Urine Culture positive for ESBL -Echocardiogram does not show any valvular vegetation, may need JAMES -Patient to remain on continuous telemetry monitoring. -Continue ferrous sulfate 325 mg daily, and ascorbic acid, hold off IV iron Elevated troponins, type II NSTEMI -Chest pain-free, cardiology evaluated and signed off -Continue aspirin 81 mg daily and atorvastatin 40 mg daily. -Patient to remain on continuous telemetry monitoring Acute metabolic encephalopathy, secondary to worsening Alzheimer's dementia versus above infections and worsening renal function Alzheimer's dementia -CT brain completed and negative for acute intracranial process with radiology report stating stable chronic appearing patchy periventricular white matter ischemic changes with atrophy. -Provide safe and supportive care with redirection and assistance as needed. -Continue daily medication regimen with carbidopa levodopa 25/100 mg tablets 4 times daily. Left shoulder and pelvic pain Right-sided superior and inferior pubic rami fractures, chronic Left shoulder humeral head collapse, possibly secondary to AVN vs neuropathic arthropathy -X-ray left shoulder completed showing large bony defect in the humeral head articular surface. -Pelvis x-ray completed showing known superior and inferior pubic rami fracture on the right reporting these as subacute incompletely healed fractures but reporting the superior pubic ramus fracture has displaced now by 9 mm versus 3 mm previously. -Patient to be provided with symptomatic care and pain management. -Fall precautions in place. -Orthopedic surgery consulted, recommending conservative measures with use of sling to left upper extremity. Orthopedic team also recommending patient may perform gentle range of motion exercises of left upper extremity as tolerated, remain nonweightbearing to left upper extremity and in regards to pubic rami fracture patient may be weightbearing as tolerated and ambulate with walker with assistance. Type II non-insulin dependent diabetes mellitus -Continue to hold metformin -Continue sliding scale insulin, monitor for hypoglycemia Hypothyroidism -Continue daily medication regimen with levothyroxine 100 mcg daily. -TSH 1.200 Data and imaging reviewed: -Morning labs reviewed. CBC showing stable normocytic anemia with hemoglobin of 7.7. BMP showing non-anion gap metabolic acidosis with chloride of 111, bicarb of 17, anion gap of 9, and worsening renal function with BUN of 52, creatinine 4.05, GFR of 10. -Vital signs reviewed. Blood pressure elevated this morning at 174/78, heart rate 78, respiratory rate 16, temp 97.9 F, and SpO2 of 96% on room air. Added on amlodipine 5 mg daily to current medication regimen. CODE STATUS: DNR/DNI DVT prophylaxis: Heparin Anticipated discharge date: Clinical course to determine Anticipated discharge place: Clinical course to determine Patient was seen independently by Nurse Pracitioner. This document was prepared using [employer] dictation software. Please allow for errors in spa assistant manager, while rare they do occur. Alex Alvarenga MACHINE CAPTAIN rendered care for this patient independently, reviewed the findings and plan as documented in the note above. I did not physically speak with or examine the patient on this date. Objective - Vital Signs Vital signs: Vital Signs Temp 97.9 F 01/08/24 04:00 Pulse 74 01/08/24 04:00 Resp 18 01/08/24 04:00 BP 143/70 01/08/24 04:00 Pulse Ox 97 01/08/24 04:00 FiO2 Intake & Output 01/07/24 01/08/24 01/08/24 18:59 06:59 18:59 Intake Total 225 Output Total 200 225 Balance -200 0 Intake: IV 225 Sodium Chloride 0.9% 1, 225 000 ml @ 75 mls/hr IV . [id number] [facility] Rx#:[id number] Output: Urine 200 225 Other: Voiding Method Indwelling Catheter Indwelling Catheter # Bowel Movements 2 - Labs CBC & Chem 7: 01/08/24 07:00 01/08/24 07:00 Labs: Abnormal Lab Results - Last 24 Hours (Table) 01/07/24 01/07/24 01/07/24 Range/Units 07:28 07:28 11:30 RBC 2.86 L (3.80-5.40) m/uL Hgb 7.9 L (11.4-16.0) gm/dL Hct 24.3 L (34.0-46.0) % RDW 16.1 H (11.5-15.5) % Neutrophils # 8.8 H (1.3-7.7) k/uL ESR 44 H (0-30) mm/Hr Sodium 136 L (137-145) mmol/L Chloride 109 H (98-107) mmol/L Carbon Dioxide 18 L (22-30) mmol/L BUN 54 H (7-17) mg/dL Creatinine 3.74 H (0.52-1.04) mg/dL POC Glucose (mg/dL) 111 H (70-110) mg/dL C-Reactive Protein 6.3 H (<1.0) mg/dL Total Protein 5.4 L (6.3-8.2) g/dL Albumin 2.2 L (3.5-5.0) g/dL 01/07/24 01/07/24 Range/Units 16:14 20:04 RBC (3.80-5.40) m/uL Hgb (11.4-16.0) gm/dL Hct (34.0-46.0) % RDW (11.5-15.5) % Neutrophils # (1.3-7.7) k/uL ESR (0-30) mm/Hr Sodium (137-145) mmol/L Chloride (98-107) mmol/L Carbon Dioxide (22-30) mmol/L BUN (7-17) mg/dL Creatinine (0.52-1.04) mg/dL POC Glucose (mg/dL) 134 H 133 H (70-110) mg/dL C-Reactive Protein (<1.0) mg/dL Total Protein (6.3-8.2) g/dL Albumin (3.5-5.0) g/dL Microbiology - Last 24 Hours (Table) 01/06/24 06:05 Blood Culture - Preliminary Blood
[2024-01-08] MEDS: DEXTROSE 5% IN WATER 1,000 ML with SODIUM BICARB (1 MEQ/ML) 150 ML IV SCH (10:57)
[2024-01-08] MEDS: amLODIPine 5 MG TAB PO SCH (10:58)
[2024-01-08 11:32] LABS: Glucose,Whole Blood 117 mg/dL (70-110)
--- NOTE | 2024-01-08 11:47 | P.PN ---
Subjective Progress Note Date: 01/08/24 Principal diagnosis: Reason for follow-up is MSSA bacteremia Patient is a 78-year-old female past medical history pertinent for diabetes mellitus hypertension hyperlipidemia dementia and depression brought into the hospital for evaluation of worsening dementia/confusion noticed to have positive UA and did have MSSA bacteremia also abnormality to the left humeral head on the x-ray. On today's evaluation that is 01/08/2024,the patient remains to be afebrile, patient is breathing comfortably on room air, the patient not a very good historian today as did not answer any question but not specifically about pain to the left shoulder no answer no vomiting or diarrhea has been reported. Patient white count is 10.4 creatinine is 4.05 blood culture repeat currently pending Objective - Vital Signs Vital signs: Vital Signs Temp 97.9 F 01/08/24 07:58 Pulse 75 01/08/24 11:29 Resp 16 01/08/24 11:29 BP 159/85 01/08/24 11:29 Pulse Ox 97 01/08/24 11:29 FiO2 Intake & Output 01/07/24 01/08/24 01/08/24 18:59 06:59 18:59 Intake Total 225 Output Total 200 225 Balance -200 0 Intake: IV 225 Sodium Chloride 0.9% 1, 225 000 ml @ 75 mls/hr IV . [id number] [facility] Rx#:[id number] Output: Urine 200 225 Other: Voiding Method Indwelling Catheter Indwelling Catheter Indwelling Catheter # Bowel Movements 2 - Exam GENERAL DESCRIPTION: An elderly female lying in bed in no distress RESPIRATORY SYSTEM: Unlabored breathing , decreased breath sounds at bases HEART: S1 S2 regular rate and rhythm , ABDOMEN: Soft , no tenderness EXTREMITIES: No edema feet - Labs CBC & Chem 7: 01/08/24 07:00 01/08/24 07:00 Labs: Abnormal Lab Results - Last 24 Hours (Table) 01/07/24 01/07/24 01/07/24 Range/Units 07:28 16:14 20:04 RBC (3.80-5.40) m/uL Hgb (11.4-16.0) gm/dL Hct (34.0-46.0) % RDW (11.5-15.5) % Neutrophils # (1.3-7.7) k/uL ESR 44 H (0-30) mm/Hr Chloride (98-107) mmol/L Carbon Dioxide (22-30) mmol/L BUN (7-17) mg/dL Creatinine (0.52-1.04) mg/dL POC Glucose (mg/dL) 134 H 133 H (70-110) mg/dL Calcium (8.4-10.2) mg/dL Total Protein (6.3-8.2) g/dL Albumin (3.5-5.0) g/dL 01/08/24 01/08/24 01/08/24 Range/Units 07:00 07:00 11:29 RBC 2.79 L (3.80-5.40) m/uL Hgb 7.7 L (11.4-16.0) gm/dL Hct 23.8 L (34.0-46.0) % RDW 16.1 H (11.5-15.5) % Neutrophils # 8.7 H (1.3-7.7) k/uL ESR (0-30) mm/Hr Chloride 111 H (98-107) mmol/L Carbon Dioxide 17 L (22-30) mmol/L BUN 52 H (7-17) mg/dL Creatinine 4.05 H (0.52-1.04) mg/dL POC Glucose (mg/dL) 117 H (70-110) mg/dL Calcium 8.1 L (8.4-10.2) mg/dL Total Protein 5.2 L (6.3-8.2) g/dL Albumin 2.1 L (3.5-5.0) g/dL Microbiology - Last 24 Hours (Table) 01/06/24 06:05 Blood Culture - Preliminary Blood Assessment and Plan (1) MSSA bacteremia Current Visit: Yes Status: Acute Code(s): R78.81 - BACTEREMIA; B95.61 - METHICILLIN SUSCEP STAPH INFCT CAUSING DIS CLASSD [id number] SNOMED Code(s): 591247606 Plan: 1-1patient is a 78-year-old female with multiple comorbidities presenting to the hospital with confusion and mental status changes did have a low-grade fever elevated white count and now with evidence of MSSA bacteremia source is likely left shoulder which was large bony defect of the humeral head articular surface which was not seen on October 30, 2023 x-ray as currently no other obvious focus for this bacteremia, MRI of the left shoulder scheduled for this afternoon 2-blood cultures repeated so far negative 3-patient is also growing ESBL E. coli in the urine however the patient denies urinary symptoms question of possible asymptomatic bacteriuria 4-patient to continue with cefazolin and monitor clinical course closely no need for antibiotic for the positive urine culture Dictation was produced using [employer] dictation software. please excuse any grammatical, word or spelling errors. Time with Patient: Less than 30
--- NOTE | 2024-01-08 15:02 | CDI ---
Documentation Clarification Form Date: 01/08/2024 02:35:00 PM From: Abby Gutierrez RN, CCDS Phone: [phone] Admit Date: 01/04/2024 11:07:00 AM Patient Name: Joan Granados Visit Number: [id number] Discharge Date: ATTENTION: The Clinical Documentation Specialists (CDI) and [facility] Coding Staff appreciate your assistance in clarifying documentation. Please respond to the clarification below the line at the bottom and electronically sign. The CDI & [facility] Coding staff will review the response and follow-up if needed. Please note: Queries are made part of the Legal Health Record. If you have any questions, please contact the author of this message via ITS. Dr. Venkata Swift The patient has sepsis documentation in the ED assessment on 01/04/24 and the Nephrology progress note starting on 01/07/24. Based on this information and the findings below, is there an additional diagnosis that is clinically appropriate for this patient? 01/07/24 Nephrology assessment: Acute kidney injury, ATN secondary to severe anemia and sepsis. UA shows 2+ protein large blood and WBCs 69. History/Risk Factors: diabetes mellitus hypertension hyperlipidemia dementia Clinical Indicators: 78-year-old female worsening dementia/confusion noticed to have positive UA and did have MSSA bacteremia also abnormality to the left humeral head on the x-ray. 01/04 VS 132/63 96 20 100% RA, Temp 99.6 (Temp Max 99.9) WBC 19.3, Neutrophils 18.0 Ba+ 133 BUN 62 cR 2.93 UA: Ur Leukocyte Esterase Moderate Urine WBC 69 Lactic acid: 1.3 01/04 Blood cultures: Staphylococcus aureus 01/04 Urine Culture Escherichia coli ID: confusion and mental status changes did have a low-grade fever elevated white count and now with evidence of MSSA bacteremia source is likely left shoulder which was large bony defect of the humeral head articular surface which was not seen on October 30, 2023 x-ray as currently no other obvious focus for this bacteremia, MRI of the left shoulder scheduled for this afternoon. 2-blood cultures repeated so far negative 3-patient is also growing ESBL E. coli in the urine however the patient denies urinary symptoms question of possible asymptomatic bacteriuria. Treatment: Cefazolin 1 GM IVPB Q 24 HRS 01/08 -01/08 Cefazolin 2 gm IVPB Q 12 01/06-12/18 Rocephin 2 GM IVPB Q 24 HRS 01/04-01/06 .9 NS @ 75 MLS/HR 01/05-01/08 Is there an additional diagnosis that is clinically appropriate for this patient? [x] Sepsis, present on admission [ ] Sepsis ruled out [ ] Other, please specify [ ] Unable to determine SIRS Criteria: 2 or more of the following may indicate SIRS Temperature < 96.8F (36C) or > 101.0F (38.3C) Heart Rate > 90 bpm Respiratory Rate > 20 breaths/min or PaCO2 < 32 mmHg White Blood Cell Count > 12,000 or < 4,000 cells/mm3 or > 10% bands (Template Last Reviewed: November 2022) MTDD
[2024-01-08 17:10] LABS: Glucose,Whole Blood 170 mg/dL (70-110)
[2024-01-08 20:07] LABS: Glucose,Whole Blood 152 mg/dL (70-110)
[2024-01-09 06:04] LABS: Glucose,Whole Blood 186 mg/dL (70-110)
[2024-01-09 09:12] LABS: Anisocytosis Slight; HCT 25.8 % (34.0-46.0); HGB 8.4 gm/dL (11.4-16.0); Hypochromasia Marked; MCHC 32.5 g/dL (31.0-37.0); MCV 86.3 fL (80.0-100.0); Mean Platelet Volume 7.7; Platelet Count 264 k/uL (150-450); Poikilocytosis Slight; RBC 2.99 m/uL (3.80-5.40); WBC 9.3 k/uL (3.8-10.6)
[2024-01-09 09:24] LABS: African American GFR (CKD) 12 (>60 ml/min/1.73 sqM); Anion Gap 6 mmol/L; Blood Urea Nitrogen 52 mg/dL (7-17); Calcium 7.6 mg/dL (8.4-10.2); Carbon Dioxide 24 mmol/L (22-30); Chloride 104 mmol/L (98-107); Glucose 203 mg/dL (74-99); Magnesium 1.9 mg/dL (1.6-2.3); Non-African American GFR(CKD) 10 (>60 ml/min/1.73 sqM); Potassium 3.9 mmol/L (3.5-5.1); Sodium 134 mmol/L (137-145)
[2024-01-09] MEDS: LORazepam 2 MG/ML INJ IV STA ×2 (09:51→10:00)
[2024-01-09] MEDS: levETIRAcetam IV 500 MG/5 ML VIAL IVP STA (10:00)
[2024-01-09] MEDS ORDERED: LORazepam 2 MG/ML INJ IV PRN (10:05)
[2024-01-09] MEDS: Lacosamide IV (ages 17+ yrs) 200 MG/20 ML ML IVP STA (10:42)
--- NOTE | 2024-01-09 10:47 | P.PN ---
Subjective Patient is seen in follow-up for acute kidney injury. Renal function slightly better. Hemoglobin improved to 8.4. Nonoliguric. Has Rodriguez catheter. Receiving IV fluids. Poor historian. Noted to be having seizure-like activity upon evaluation. Vital signs are stable. General: Resting in bed. Seizure-like activity noted. HEENT: Head exam is unremarkable. LUNGS: No audible rhonchi or wheezes. HEART: Rate and Rhythm are regular. ABDOMEN: Nontender. EXTREMITITES: No edema. Objective - Vital Signs Vital signs: Vital Signs Temp 97.4 F L 01/09/24 08:00 Pulse 80 01/09/24 08:00 Resp 16 01/09/24 08:00 BP 138/65 01/09/24 08:00 Pulse Ox 94 L 01/09/24 08:00 FiO2 Intake & Output 01/08/24 01/09/24 01/09/24 18:59 06:59 18:59 Intake Total 0 Output Total 200 500 Balance -200 -500 Intake: Oral 0 Output: Urine 200 500 Other: Voiding Method Indwelling Catheter Indwelling Catheter # Bowel Movements 2 - Labs CBC & Chem 7: 01/09/24 08:16 01/09/24 08:16 Labs: Abnormal Lab Results - Last 24 Hours (Table) 01/08/24 01/08/24 01/08/24 Range/Units 11:29 17:08 20:05 RBC (3.80-5.40) m/uL Hgb (11.4-16.0) gm/dL Hct (34.0-46.0) % RDW (11.5-15.5) % Sodium (137-145) mmol/L BUN (7-17) mg/dL Creatinine (0.52-1.04) mg/dL Glucose (74-99) mg/dL POC Glucose (mg/dL) 117 H 170 H 152 H (70-110) mg/dL Calcium (8.4-10.2) mg/dL 01/09/24 01/09/24 01/09/24 Range/Units 06:02 08:16 08:16 RBC 2.99 L (3.80-5.40) m/uL Hgb 8.4 L (11.4-16.0) gm/dL Hct 25.8 L (34.0-46.0) % RDW 16.0 H (11.5-15.5) % Sodium 134 L (137-145) mmol/L BUN 52 H (7-17) mg/dL Creatinine 3.96 H (0.52-1.04) mg/dL Glucose 203 H (74-99) mg/dL POC Glucose (mg/dL) 186 H (70-110) mg/dL Calcium 7.6 L (8.4-10.2) mg/dL Microbiology - Last 24 Hours (Table) 01/07/24 07:28 Blood Culture - Preliminary Blood 01/06/24 06:05 Blood Culture - Preliminary Blood 01/06/24 22:43 Urine Culture - Final Urine,Voided Assessment and Plan Plan: Assessment: 1. Acute kidney injury secondary to ATN secondary to severe sepsis. Creatinine 0.9 dated December 06, 2023. Creatinine peaked at 4.05 this admission -3.96 today. No hydronephrosis noted on kidney ultrasound/CT. 2. Severe sepsis secondary to Staph aureus bacteremia and E. coli UTI on antibiotics. 3. Metabolic acidosis secondary to acute kidney injury on IV fluids. On bicarb drip. Improved. 4. Acute blood loss anemia status post blood transfusion this admission. Hemoglobin better. 5. Benign hypertension. Stable. 6. Seizure-like activity. Discussed with nurse. EEG ordered and neurology consulted. Plan: Change bicarb drip back to normal saline. Maintain Rodriguez catheter. Strict I's and O's. Avoid nephrotoxins. Continue to monitor renal function and urine output. Avoid IV iron in the setting of acute infection.
[2024-01-09] MEDS: SODIUM CHLORIDE 0.9% 1,000 ML IV SCH (11:16)
[2024-01-09 11:51] LABS: Glucose,Whole Blood 213 mg/dL (70-110)
--- NOTE | 2024-01-09 12:34 | CT ---
EXAMINATION TYPE: CT brain wo con DATE OF EXAM: 01/09/2024 COMPARISON: 01/04/2024 INDICATION: altered mental status, seizure DLP: 1095.4 mGycm, Automated exposure control for dose reduction was used. CONTRAST: None CT of the brain is performed utilizing 3 mm thick sections through the posterior fossa and 3 mm thick sections through the remaining calvarium. Study is not performed within 24 hours of arrival to the hospital. No abnormal hyperdensity is present to suggest an acute intracranial hemorrhage. No mass lesion is evident. No acute infarcts are evident. Patchy periventricular white matter hypodensity is present, likely on the basis of chronic white matter ischemic changes. Pattern appears stable from comparison. Ventricles and sulci are prominent for the patient age. Paranasal sinuses and mastoid air cells within the oymcl-rr-ctys are clear. IMPRESSION: 1. Atrophy with chronic appearing periventricular white matter ischemic changes. Follow-up MRI can be performed as clinically indicated. 2. Exam appears stable from recent comparison study.
--- NOTE | 2024-01-09 12:48 | P.CNNES ---
History of Present Illness Consult date: 01/09/24 Requesting physician: Alex Alvarenga Reason for Consult: gazing off to left, eyebrow twitching, worseing confusion History of Present Illness: This is a 78-year-old woman with history of all tremors dementia who is oriented 1-2 at baseline, who presents to emergency Department because of worsening confusion. Neurology is consulted for eye twitching with gaze deviation to the left and seizure-like activity. History is obtained from the patient's primary team nurse as well as her [id number]. Seems the patient has been having worsening confusion decreased appetite over the past few days. She has history of pelvic fracture and per the family member she had it for about 6 weeks. She had extra low shoulder which showed humeral head bony defect. The pelvic x-ray showed complete known superior and inferior pubic rami fracture on the right reporting these as subacute and completely had fracture. Today in the morning patient was having left gaze deviation with eye twitching the seizure-like activity of a tonic-clonic per the nurse lasting less than a minute and she is seems that she had roving eye. Then she had recurrent seizure just afterwards immediately lasting for 5 minutes with left gaze deviation with generalized tonic-clonic shaken per the primary team. She was given 2 mg the Ativan on the first episode then she was given another 2 mg Ativan on the second episode and the total 4 mg. Then she loaded with Keppra 500 mg. She has an acute kidney injury. Patient was found to have MSSA bacteremia and ES spelled UTI. ID is on board. Per family member was at bedside and she stated that since 2022 the patient would have blank stares. She does not have any history of seizure but the family member suspected the patient had the questionable seizure because of those blank stares. She had the pelvic fracture about 6 weeks ago per family members which she fell. Some of the work-up during this hospital visit consisted of: Tmax of 99.9F on 01/04/24 that resolved. wbc is normal. Creatinine is 3.96. Slightly trending down from the day prior. BUN is a 52 Glucose is 23 Calcium is 7.6 Magnesium is 1.9 Ammonia is less than 9 TSH is 1.20. Urine culture is positive for E. coli. Blood culture is staph aureus CT of the head on 2023 is reported as stable appearing patchy pe riventricular white matter ischemic type changes with atrophy. I personally reviewed the CT and I do not appreciate any acute or subacute changes. There is no bleed. The echo was reported as previous echo recorded on 10/31/2023. Normal left ventricular systolic function. Review of Systems Review of system is limited but the positive and negative as per HPI. Past Medical History Past Medical History: Dementia, Diabetes Mellitus, Hyperlipidemia, Hypertension, Thyroid Disorder History of Any Multi-Drug Resistant Organisms: None Reported Past Surgical History: Unable to Obtain Past Anesthesia/Blood Transfusion Reactions: No Reported Reaction Past Psychological History: Depression Smoking Status: Never smoker Past Alcohol Use History: None Reported Past Drug Use History: None Reported - Past Family History Brother(s) Additional Family Medical History / Comment(s): Unable to obtain due to p atient's underlying dementia Medications and Allergies Home Medications Medication Instructions Recorded Confirmed Type ARIPiprazole 5 mg PO DAILY 07/27/22 01/04/24 History Acetaminophen Tab [Tylenol] 500 mg PO Q6H PRN 07/27/22 01/04/24 History Alendronate Sodium 70 mg PO CALABRESE 07/27/22 01/04/24 History Aspirin EC [Ecotrin Low Dose] 81 mg PO DAILY 07/27/22 01/04/24 History Citalopram Hydrobromide 20 mg PO DAILY 07/27/22 01/04/24 History [Citalopram HBr] Cyanocobalamin (Vitamin B-12) 1,000 mcg PO DAILY 07/27/22 01/04/24 History [Vitamin B-12] Levothyroxine Sodium 100 mcg PO DAILY 07/27/22 01/04/24 History Simvastatin [Zocor] 80 mg PO DAILY 07/27/22 01/04/24 History metFORMIN HCL [Glucophage] 500 mg PO TID 07/27/22 01/04/24 History Carbidopa-Levodopa 25-100 mg 1 tab PO QID 10/30/23 01/04/24 History [Sinemet 25-100 mg] Ferrous Sulfate [Feosol] 325 mg PO DAILY 01/04/24 01/04/24 History Furosemide [Lasix] 20 mg PO DAILY 01/04/24 01/04/24 History Allergies Allergy/AdvReac Type Severity Reaction Status Date / Time peanut AdvReac "Watery Verified 01/04/24 11:08 eyes" Physical Examination - Vital Signs Vital Signs: Vital Signs Temp Pulse Resp BP Pulse Ox 01/09/24 10:20 81 15 139/60 98 01/09/24 09:40 111 H 18 169/72 96 01/09/24 08:00 97.4 F L 80 16 138/65 94 L 01/09/24 01:24 98.0 F 83 18 159/72 97 01/08/24 20:03 98.1 F 87 16 157/66 96 01/08/24 18:27 80 16 152/73 98 Intake and Output 01/08/24 01/09/24 01/09/24 22:59 06:59 14:59 Intake Total 0 Output Total 400 300 Balance -400 -300 Intake: Oral 0 Output: Urine 400 300 Other: Voiding Method Indwelling Catheter Indwelling Catheter # Bowel Movements 2 General: Patient is lying in bed and does not appear in acute distress. Neuro: Very limited since received total 4mg Ativan. Is severely drowsy. I had to open her eyes and primary gaze are midline. Pupils are 3mm bilaterally and reactive to light. No facial weakness. Motor: Strength is limited in assessment. Slight decrease tone throughout. Plantars: Mute bilaterally. Results - Laboratory Findings CBC and BMP: 01/09/24 08:16 01/09/24 08:16 Abnormal Lab Findings: Abnormal Labs 01/04/24 01/04/24 01/04/24 09:09 09:09 09:09 WBC 19.3 H RBC 2.73 L Hgb 7.4 L Hct 22.6 L RDW 16.2 H Neutrophils # 18.0 H Lymphocytes # 0.4 L ESR APTT 21.9 L Sodium Potassium Chloride Carbon Dioxide BUN Creatinine Glucose POC Glucose (mg/dL) Hemoglobin A1c Calcium Magnesium Iron TIBC % Saturation Transferrin Troponin I C-Reactive Protein Total Protein Albumin Urine Appearance Cloudy H Urine Protein 2+ H Urine Ketones Trace H Urine Blood Large H Ur Leukocyte Esterase Moderate H Urine RBC >182 H Urine WBC 69 H Urine WBC Clumps Moderate H Ur Squamous Epith Cells Urine Bacteria Occasional H Urine Mucus Rare H Urine Yeast (Budding) Moderate H Urine Opiates Screen Detected H Crossmatch 01/04/24 01/04/24 01/04/24 09:09 09:09 14:12 WBC RBC Hgb Hct RDW Neutrophils # Lymphocytes # ESR APTT Sodium 133 L Potassium 5.4 H Chloride 97 L Carbon Dioxide BUN 62 H Creatinine 2.93 H Glucose 102 H POC Glucose (mg/dL) Hemoglobin A1c Calcium 11.8 H Magnesium Iron TIBC % Saturation Transferrin Troponin I 0.251 H* 0.432 H* C-Reactive Protein Total Protein Albumin 2.9 L Urine Appearance Urine Protein Urine Ketones Urine Blood Ur Leukocyte Esterase Urine RBC Urine WBC Urine WBC Clumps Ur Squamous Epith Cells Urine Bacteria Urine Mucus Urine Yeast (Budding) Urine Opiates Screen Crossmatch 01/04/24 01/04/24 01/05/24 16:30 18:08 06:52 WBC RBC Hgb Hct RDW Neutrophils # Lymphocytes # ESR APTT Sodium 134 L Potassium Chloride Carbon Dioxide BUN 56 H Creatinine 2.83 H Glucose POC Glucose (mg/dL) Hemoglobin A1c 6.1 H Calcium 10.6 H Magnesium Iron TIBC % Saturation Transferrin Troponin I 0.505 H* C-Reactive Protein Total Protein Albumin Urine Appearance Urine Protein Urine Ketones Urine Blood Ur Leukocyte Esterase Urine RBC Urine WBC Urine WBC Clumps Ur Squamous Epith Cells Urine Bacteria Urine Mucus Urine Yeast (Budding) Urine Opiates Screen Crossmatch 01/05/24 01/05/24 01/05/24 06:52 06:52 06:52 WBC 13.1 H RBC 2.25 L Hgb 6.0 L* Hct 19.3 L* RDW 16.4 H Neutrophils # 11.3 H Lymphocytes # ESR APTT Sodium 134 L Potassium Chloride Carbon Dioxide BUN 58 H Creatinine 3.04 H Glucose 73 L POC Glucose (mg/dL) Hemoglobin A1c Calcium Magnesium Iron 10 L TIBC 199 L % Saturation 5.03 L Transferrin 142.0 L Troponin I C-Reactive Protein Total Protein Albumin Urine Appearance Urine Protein Urine Ketones Urine Blood Ur Leukocyte Esterase Urine RBC Urine WBC Urine WBC Clumps Ur Squamous Epith Cells Urine Bacteria Urine Mucus Urine Yeast (Budding) Urine Opiates Screen Crossmatch 01/05/24 01/05/24 01/05/24 10:11 11:18 16:20 WBC RBC Hgb Hct RDW Neutrophils # Lymphocytes # ESR APTT Sodium Potassium Chloride Carbon Dioxide BUN Creatinine Glucose POC Glucose (mg/dL) 118 H 160 H Hemoglobin A1c Calcium Magnesium Iron TIBC % Saturation Transferrin Troponin I C-Reactive Protein Total Protein Albumin Urine Appearance Urine Protein Urine Ketones Urine Blood Ur Leukocyte Esterase Urine RBC Urine WBC Urine WBC Clumps Ur Squamous Epith Cells Urine Bacteria Urine Mucus Urine Yeast (Budding) Urine Opiates Screen Crossmatch See Detail 01/05/24 01/05/24 01/05/24 20:17 20:28 23:39 WBC 11.2 H 11.6 H RBC 2.59 L 2.65 L Hgb 7.3 L 7.3 L Hct 22.0 L 22.4 L RDW 15.9 H 16.1 H Neutrophils # 9.1 H Lymphocytes # ESR APTT Sodium Potassium Chloride Carbon Dioxide BUN Creatinine Glucose POC Glucose (mg/dL) 174 H Hemoglobin A1c Calcium Magnesium Iron TIBC % Saturation Transferrin Troponin I C-Reactive Protein Total Protein Albumin Urine Appearance Urine Protein Urine Ketones Urine Blood Ur Leukocyte Esterase Urine RBC Urine WBC Urine WBC Clumps Ur Squamous Epith Cells Urine Bacteria Urine Mucus Urine Yeast (Budding) Urine Opiates Screen Crossmatch 01/06/24 01/06/24 01/06/24 06:02 06:02 06:10 WBC RBC 2.70 L Hgb 7.4 L Hct 22.7 L RDW 16.1 H Neutrophils # Lymphocytes # ESR APTT Sodium 132 L Potassium Chloride Carbon Dioxide BUN 57 H Creatinine 3.32 H Glucose 135 H POC Glucose (mg/dL) 161 H Hemoglobin A1c Calcium Magnesium 2.4 H Iron TIBC % Saturation Transferrin Troponin I C-Reactive Protein Total Protein Albumin Urine Appearance Urine Protein Urine Ketones Urine Blood Ur Leukocyte Esterase Urine RBC Urine WBC Urine WBC Clumps Ur Squamous Epith Cells Urine Bacteria Urine Mucus Urine Yeast (Budding) Urine Opiates Screen Crossmatch 01/06/24 01/06/24 01/06/24 10:55 11:15 16:31 WBC RBC 2.77 L Hgb 7.7 L Hct 23.6 L RDW 16.2 H Neutrophils # Lymphocytes # ESR APTT Sodium Potassium Chloride Carbon Dioxide BUN Creatinine Glucose POC Glucose (mg/dL) 164 H 136 H Hemoglobin A1c Calcium Magnesium Iron TIBC % Saturation Transferrin Troponin I C-Reactive Protein Total Protein Albumin Urine Appearance Urine Protein Urine Ketones Urine Blood Ur Leukocyte Esterase Urine RBC Urine WBC Urine WBC Clumps Ur Squamous Epith Cells Urine Bacteria Urine Mucus Urine Yeast (Budding) Urine Opiates Screen Crossmatch 01/06/24 01/06/24 01/06/24 17:45 19:57 22:43 WBC RBC 2.77 L Hgb 7.7 L Hct 23.5 L RDW 16.1 H Neutrophils # Lymphocytes # ESR APTT Sodium Potassium Chloride Carbon Dioxide BUN Creatinine Glucose POC Glucose (mg/dL) 127 H Hemoglobin A1c Calcium Magnesium Iron TIBC % Saturation Transferrin Troponin I C-Reactive Protein Total Protein Albumin Urine Appearance Cloudy H Urine Protein 1+ H Urine Ketones Urine Blood Moderate H Ur Leukocyte Esterase Moderate H Urine RBC >182 H Urine WBC 32 H Urine WBC Clumps Ur Squamous Epith Cells 5 H Urine Bacteria Occasional H Urine Mucus Rare H Urine Yeast (Budding) Urine Opiates Screen Crossmatch 01/07/24 01/07/24 01/07/24 06:01 07:28 07:28 WBC RBC 2.86 L Hgb 7.9 L Hct 24.3 L RDW 16.1 H Neutrophils # 8.8 H Lymphocytes # ESR 44 H APTT Sodium 136 L Potassium Chloride 109 H Carbon Dioxide 18 L BUN 54 H Creatinine 3.74 H Glucose POC Glucose (mg/dL) 111 H Hemoglobin A1c Calcium Magnesium Iron TIBC % Saturation Transferrin Troponin I C-Reactive Protein 6.3 H Total Protein 5.4 L Albumin 2.2 L Urine Appearance Urine Protein Urine Ketones Urine Blood Ur Leukocyte Esterase Urine RBC Urine WBC Urine WBC Clumps Ur Squamous Epith Cells Urine Bacteria Urine Mucus Urine Yeast (Budding) Urine Opiates Screen Crossmatch 01/07/24 01/07/24 01/07/24 11:30 16:14 20:04 WBC RBC Hgb Hct RDW Neutrophils # Lymphocytes # ESR APTT Sodium Potassium Chloride Carbon Dioxide BUN Creatinine Glucose POC Glucose (mg/dL) 111 H 134 H 133 H Hemoglobin A1c Calcium Magnesium Iron TIBC % Saturation Transferrin Troponin I C-Reactive Protein Total Protein Albumin Urine Appearance Urine Protein Urine Ketones Urine Blood Ur Leukocyte Esterase Urine RBC Urine WBC Urine WBC Clumps Ur Squamous Epith Cells Urine Bacteria Urine Mucus Urine Yeast (Budding) Urine Opiates Screen Crossmatch 01/08/24 01/08/24 01/08/24 07:00 07:00 11:29 WBC RBC 2.79 L Hgb 7.7 L Hct 23.8 L RDW 16.1 H Neutrophils # 8.7 H Lymphocytes # ESR APTT Sodium Potassium Chloride 111 H Carbon Dioxide 17 L BUN 52 H Creatinine 4.05 H Glucose POC Glucose (mg/dL) 117 H Hemoglobin A1c Calcium 8.1 L Magnesium Iron TIBC % Saturation Transferrin Troponin I C-Reactive Protein Total Protein 5.2 L Albumin 2.1 L Urine Appearance Urine Protein Urine Ketones Urine Blood Ur Leukocyte Esterase Urine RBC Urine WBC Urine WBC Clumps Ur Squamous Epith Cells Urine Bacteria Urine Mucus Urine Yeast (Budding) Urine Opiates Screen Crossmatch 01/08/24 01/08/24 01/09/24 17:08 20:05 06:02 WBC RBC Hgb Hct RDW Neutrophils # Lymphocytes # ESR APTT Sodium Potassium Chloride Carbon Dioxide BUN Creatinine Glucose POC Glucose (mg/dL) 170 H 152 H 186 H Hemoglobin A1c Calcium Magnesium Iron TIBC % Saturation Transferrin Troponin I C-Reactive Protein Total Protein Albumin Urine Appearance Urine Protein Urine Ketones Urine Blood Ur Leukocyte Esterase Urine RBC Urine WBC Urine WBC Clumps Ur Squamous Epith Cells Urine Bacteria Urine Mucus Urine Yeast (Budding) Urine Opiates Screen Crossmatch 01/09/24 01/09/24 01/09/24 08:16 08:16 11:49 WBC RBC 2.99 L Hgb 8.4 L Hct 25.8 L RDW 16.0 H Neutrophils # Lymphocytes # ESR APTT Sodium 134 L Potassium Chloride Carbon Dioxide BUN 52 H Creatinine 3.96 H Glucose 203 H POC Glucose (mg/dL) 213 H Hemoglobin A1c Calcium 7.6 L Magnesium Iron TIBC % Saturation Transferrin Troponin I C-Reactive Protein Total Protein Albumin Urine Appearance Urine Protein Urine Ketones Urine Blood Ur Leukocyte Esterase Urine RBC Urine WBC Urine WBC Clumps Ur Squamous Epith Cells Urine Bacteria Urine Mucus Urine Yeast (Budding) Urine Opiates Screen Crossmatch Assessment and Plan Assessment: This is a 78-year-old woman who presents to the emergency department because of worsening confusion decreased appetite over the past few days. She has left shoulder fracture and history of pelvic fracture. The felt pelvic fracture was about 6 weeks ago. During his hospital visit she was found to be in MSSA jeremy terima and ESBL UTI. Today she had two seizures, in which she had left gaze fixation, eye twitching an GTC and first episode was <1 minute then second was 5minutes. She received 4mg Ativan. Per family members she has been having blank stares since 2022 and family member. Status epilepticus---resolved after 4mg Ativan. Her blanks stares since at least 09/2023 is likely due to seizure and her seizure are new onset. Her shoulder fracture and plevic fracture is likely due to seizures. Pelvic fracture was about 6 weeks ago Altered mental status due to multifactorial: Encephalopathy due to Seizure, medication (Ativan). Also component of septic encephalopathy and metabolic en cephalopathy. Initial CT head is negative. Sepsis due to MSSA bacteremia and ESBL UTI FROILAN History of Alzheimer's dementia and baseline and oriented 12 Hypertension Hyperlipidemia Hypothyroidism Non-insulin diabetes mellitus Iron deficiency anemia Recurrent UTI Plan: EEG is ordered urgently. The preliminary report as there is no seizure discharges. Primary team ordered a repeat CT of the head I ordered MRI of the brain w/o (cannot order w/ Narinder since kidney insufficiency). As stated earlier patient was given 4 mg Ativan. And was loaded Keppra 500 mg. I also loaded the patient on the Vimpat 200mg once. Then started the patient on Vimpat 100mg bid (not Keppra since significant kidney insufficiency). She is on Ativan 2 mg IV every 6 hours when necessary for seizures Seizure precautions I ordered a lumbar puncture with the CSF study to rule out any CSF infection which seems unlikely. Consulted the pain specialist. I just stopped the subcu heparin for Lumbar Puncture. I spoke with the primary team and consider transesophageal echocardiogram if unknown source of infection. She will be transferred to the ICU ID is on board We'll defer the rest of the medical management to primary and other specialists The plan discussed with the patient family member ([id number]), primary attending and her nurse. Thank you for the consultation. Time with Patient: Greater than 30
[2024-01-09 12:58] LABS: Glucose,Whole Blood 201 mg/dL (70-110)
--- NOTE | 2024-01-09 13:13 | P.PN ---
Subjective Progress Note Date: 01/09/24 Hospital course: Patient is a very pleasant 78-year-old female with a past medical history of Alzheimer's dementia with baseline mentation alert and oriented x 1-2, hypertension, hyperlipidemia, hypothyroidism, [id number] diabetes mellitus, iron deficiency anemia, recurrent UTIs, and history of prior pelvic fracture with chronic pelvic pain. She presented to the emergency department with a chief complaint of worsening confusion. Patient's reports that his is normally confused but he has noticed worsening confusion and a decreased appetite over the past few days. She underwent full evaluation in the emergency department. Vital signs upon arrival show blood pressure 132/63, heart rate 96, respiratory rate 20, temp 99.6 F, and SpO2 of 100% on room air. EKG completed showing normal sinus rhythm at 98 bpm with no significant T wave or ST abnormalities showing no signs of acute ischemia upon personal review and interpretation. CT brain completed and negative for acute intracranial process with radiology report stating stable chronic appearing patchy periventricular white matter ischemic changes with atrophy. Chest x-ray completed and was negative for acute cardiopulmonary process. X-ray left shoulder completed showing large bony defect in the humeral head articular surface. Pelvis x-ray completed showing known superior and inferior pubic rami fracture on the right reporting these as subacute incompletely healed fractures but reporting the superior pubic ramus fracture has displaced now by 9 mm versus 3 mm previously. Labs were completed and reviewed. CBC showing leukocytosis with a WBC count of 19.3 and hemoglobin of 7.4 (with a baseline hemoglobin of around 7.5). BMP showing hyponatremia with sodium of 133, hyperkalemia with potassium of 5.4, hypochloremia with chloride of 97, and an acute kidney injury with BUN of 62, creatinine 2.93, and GFR of 15 with baseline creatinine of 0.9. Calcium high at 11.8. Liver profile showing no significant abnormalities with the exception of low albumin of 2.9. Initial troponin elevated at 0.251. Urinalysis positive for protein, ketones, blood, leukocyte esterase, greater than 182 RBCs, and 69 WBCs. Influenza A, influenza B, COVID, and RSV were negative. Patient was admitted under our services with consultation to cardiology, nephrology and orthopedic surgery. Troponins trended overnight resulting at 0.251, 0.432, and 0.505. Orthopedic surgery evaluated, recommending conservative measures with use of sling to left upper extremity. Orthopedic team also recommending patient may perform gentle range of motion exercises of left upper extremity as tolerated, remain nonweightbearing to left upper extremity and in regards to pubic rami fracture patient may be weightbearing as tolerated and ambulate with walker with assistance. Renal function continues to worsen. Nephrology also consulted. Patient also found to have MSSA bacteremia. ID also consulted. Currently on IV antibiotics. Source unclear. On 01/09/2024 patient had status epilepticus, did resolve with IV Ativan and IV Keppra. Neurology consulted. Patient transferred to medical ICU. Subjective: Patient seen and examined at bedside. This morning, patient had episodes of left-sided gaze which would last 5 minutes and occasional tonic clonic jerks. Unresponsive during that period with brief postictal period. She had at least 2+ episodes such as these in the morning. Patient was given IV Ativan and IV Keppra. Neurology was consulted, present at bedside. Stat EEG completed. Patient also transferred to medical ICU for further close monitoring and management. Per sister, patient had similar episodes all the way back during . Physical exam: Vital signs reviewed and stable. General: appears stated age. Derm: Skin warm and dry, normal coloration for ethnicity. Head: Atraumatic, normocephalic and symmetric. Eyes: no lid lag, and anicteric sclera, EOMI Mouth: no lip lesions, mucus membranes moist Cardiovascular: regular rate and rhythm with normal S1S2, systolic murmur, positive posterior tibial pulses bilaterally, and cap refill < 2 seconds. Lungs: Respirations even, regular, and unlabored on room air. Lungs CTA bilaterally, no rhonchi, no rales, no wheezing, and no accessory muscle usage. Abdominal: soft, nontender to palpation, no guarding, no appreciable organomegaly Ext: Left upper extremity in a sling, left arm edema Neuro: Leftward gaze increased right arm tone Psych: Unable to assess Assessment and Plan of Care: Patient is severely ill, needs close monitoring. Prognosis guarded. Status epilepticus Neurology at bedside, discussed management Patient is status post 1 mg IV Ativan, loaded with 500 mg of Keppra, also loaded with 200 mg of Vimpat and 7 started on Vimpat twice daily 100 mg IV Ativan 2 mg every 6 hours as needed for seizures Seizure precautions Lumbar puncture, subcu heparin discontinued MRI brain without contrast pending Patient currently in ICU MSSA bacteremia, unclear source UTI unlikely Acute kidney injury with oliguria, stable Acute on chronic Iron Deficiency anemia, status post 1 unit of PRBCs Hyperkalemia, resolved -Discussed management with nephrology, bicarb drip changed back to normal saline, strict I's and O's, maintain Rodriguez catheter, avoid IV iron -Continue normal saline at 75 cc an hour -Hemoglobin slightly improved, no active bleeding -ID following, patient maintained on cefazolin 2 g IV every 12 hours, patient needs MRI of left shoulder -Repeat blood cultures no growth to date -Echocardiogram does not show any valvular vegetation, may need JAMES -Patient to remain on continuous telemetry monitoring. -Continue ferrous sulfate 325 mg daily, and ascorbic acid, hold off IV iron Elevated troponins, type II NSTEMI -Chest pain-free, cardiology signed off -Continue aspirin 81 mg daily and atorvastatin 40 mg daily. -Patient to remain on continuous telemetry monitoring Acute metabolic encephalopathy, possibly in the setting of seizures Alzheimer's dementia Parkinson's disease -Continue daily medication regimen with carbidopa levodopa 25/100 mg tablets 4 times daily. Left shoulder and pelvic pain Right-sided superior and inferior pubic rami fractures, chronic Left shoulder humeral head collapse, possibly secondary to AVN vs neuropathic arthropathy -Fractures possibly in the setting of seizures -Orthopedic surgery consulted, recommending conservative measures with use of sling to left upper extremity. Orthopedic team also recommending patient may perform gentle range of motion exercises of left upper extremity as tolerated, remain nonweightbearing to left upper extremity and in regards to pubic rami fracture patient may be weightbearing as tolerated and ambulate with walker with assistance. -Left upper extremity Doppler, patient has edema Type II non-insulin dependent diabetes mellitus -Continue to hold metformin -Continue sliding scale insulin, monitor for hypoglycemia Hypothyroidism -Continue daily medication regimen with levothyroxine 100 mcg daily. -TSH 1.200 Data and imaging reviewed: WBC 9.3, hemoglobin 8.4, sodium 134, potassium 3.9, magnesium 1.9, creatinine 3.96, blood sugars range between 1 52-213 [address] head did not show any acute process CODE STATUS: DNR/DNI DVT prophylaxis: SCD Anticipated discharge date: Clinical course to determine Anticipated discharge place: Clinical course to determine Objective - Vital Signs Vital signs: Vital Signs Temp 98.2 F 01/09/24 13:00 Pulse 83 01/09/24 13:00 Resp 12 01/09/24 13:00 BP 134/68 01/09/24 13:00 Pulse Ox 95 01/09/24 13:00 FiO2 Intake & Output 01/08/24 01/09/24 01/09/24 18:59 06:59 18:59 Intake Total 0 Output Total 200 500 165 Balance -200 -500 -165 Intake: Oral 0 Output: Urine 200 500 165 Other: Voiding Method Indwelling Catheter Indwelling Catheter Indwelling Catheter # Bowel Movements 2 1 - Labs CBC & Chem 7: 01/09/24 08:16 01/09/24 08:16 Labs: Abnormal Lab Results - Last 24 Hours (Table) 01/08/24 01/08/24 01/09/24 Range/Units 17:08 20:05 06:02 RBC (3.80-5.40) m/uL Hgb (11.4-16.0) gm/dL Hct (34.0-46.0) % RDW (11.5-15.5) % Sodium (137-145) mmol/L BUN (7-17) mg/dL Creatinine (0.52-1.04) mg/dL Glucose (74-99) mg/dL POC Glucose (mg/dL) 170 H 152 H 186 H (70-110) mg/dL Calcium (8.4-10.2) mg/dL 01/09/24 01/09/24 01/09/24 Range/Units 08:16 08:16 11:49 RBC 2.99 L (3.80-5.40) m/uL Hgb 8.4 L (11.4-16.0) gm/dL Hct 25.8 L (34.0-46.0) % RDW 16.0 H (11.5-15.5) % Sodium 134 L (137-145) mmol/L BUN 52 H (7-17) mg/dL Creatinine 3.96 H (0.52-1.04) mg/dL Glucose 203 H (74-99) mg/dL POC Glucose (mg/dL) 213 H (70-110) mg/dL Calcium 7.6 L (8.4-10.2) mg/dL 01/09/24 Range/Units 12:55 RBC (3.80-5.40) m/uL Hgb (11.4-16.0) gm/dL Hct (34.0-46.0) % RDW (11.5-15.5) % Sodium (137-145) mmol/L BUN (7-17) mg/dL Creatinine (0.52-1.04) mg/dL Glucose (74-99) mg/dL POC Glucose (mg/dL) 201 H (70-110) mg/dL Calcium (8.4-10.2) mg/dL Microbiology - Last 24 Hours (Table) 01/06/24 06:05 Blood Culture - Preliminary Blood 01/07/24 07:28 Blood Culture - Preliminary Blood 01/06/24 22:43 Urine Culture - Final Urine,Voided
[2024-01-09] MEDS: ZINC OXIDE PASTE (Z-GUARD) 1 APPLIC TOPICAL PRN (13:36)
[2024-01-09 14:56] LABS: INR 1.1 (<1.2); Partial Thromboplastin Time 23.5 sec (22.0-30.0); Prothrombin Time 11.6 sec (10.0-12.5)
--- NOTE | 2024-01-09 15:27 | P.PCN ---
Description of Procedure: Preprocedure diagnosis. Mental status change. Postprocedure diagnosis. As above. Procedure done. Lumbar puncture and collection of cerebrospinal fluid. Anesthesia. Local infiltration with anesthetics. Continuous pulse ox, EKG, blood pressure and verbal communication was maintained with the patient. Blood loss. None. Indication. Discussed with patient's the procedure, alternatives, complications which may include infection, nerve damage, paralysis, aggravation of the symptoms especially bleeding in the spine and posterior dural puncture headache with the patient. The patient understands and questions were answered. Procedure note. After getting concentration in the procedure room in sitting position. Back prepped with chlorhexidine and draped in sterile fashion. After injecting 3 mL of 1% lidocaine subcutaneously, a 22-gauge spinal needle was introduced at L45 interspace. Positive CSF, negative blood, negative paresthesia. CSF color was clear. CSF pressure was not measured. CSF was collected in 4 supplied sterol containers in sequence. Spinal needle was taken out and bandage was applied. Disposition. She tolerated the procedure well. No complication. Advised patient to lay flat one-hour postprocedure. The rest of the day today try to lay flat as much as possible. Next 3 days drink lots of fluid especially caffeinated beverages, and avoid constipation cough and doing strenuous physical work. Discharged home in stable condition.
--- NOTE | 2024-01-09 16:13 | P.CNPUL ---
History of Present Illness Consult date: 01/09/24 Chief complaint: Altered mentation and status epilepticus History of present illness: 78-year-old female patient got transferred to the intensive care unit because of ongoing seizure activity and concerns for status epilepticus. The patient was hospitalized few days back with altered mentation and confusion. She apparently has history of dementia possible evidence status of his dementia and she has some baseline confusion. It was noted that her confusion was progressively getting worse and she also had diminished appetite also. In the emergency department, the patient was hemodynamically stable. Initial CAT scan of the brain was negative for any acute intracranial process and the patient had chronic appearing patchy periventricular white matter ischemic changes and atrophy. Chest x-ray was normal. X-ray of the left shoulder was done and the patient showed a large bony defect in the left humeral head articular space and the shoulder was quite swollen. This was suspected to be related to a traumatic injury. Pelvic x-ray showed also superior inferior pubic rami fracture on the right and subacute incomplete healed fractures and the superior pubic ramus was displaced by around 9 mm. Blood work showed leukocytosis with a white cell count of 19.3 with a hemoglobin of 7.4 and she has chronic baseline anemia. The patient also had a sodium level of 133 with a potassium level 5.4 and a chloride of 97 with a BUN of 63 and a creatinine of 2.9. Calcium was also elevated at 11.8. No significant abnormalities in liver function test. The viral screen was negative. UA was suggestive of an underlying infection and UTI was suspected. The patient also had some troponin leak. As such, the patient was admitted to the hospital for further workup and treatment. She was seen by nephrology and the patient demonstrated progressive worsening in renal function and the creatinine delfina from 2.9 up to 4.05 and this morning is at 3.96. The white cell count dropped down to 9.3. Hemoglobin has been stable at 8.4 from today. The urine culture was positive for E. coli and this was an ESBL producing microorganism in the blood culture was also positive for Staph aureus/MSSA and this was identified on 2 separate blood cultures. Infectious disease was consulted and the patient was placed on IV cefazolin. Based on the staphylococcal growth in the blood and the joint swelling in the left shoulder, there is a concern for septic arthritis. MRI of the left shoulder was ordered and orthopedic consultation was also requested. The CT scan of the abdomen and pelvis showed no acute intra-abdominal process without any obstructive uropathy or calculus. Subacute fractures of the right inferior and superior rami/pubic rami as well as the right sacrum was noted. This afternoon, the patient was noted to have eye twitching and gaze deviation to the left and seizure-like activity. Subsequently, in the morning, the patient continued to have left gaze deviation with eye twitching and seizure- like tonic-clonic seizure activity as reported by the nursing staff that lasted less than a minute. The patient continued to have recurrent seizures following that lasting up to 5 minutes with the left gaze deviation and generalized clonic activity. The patient had been given a total of 2 mg of IV Ativan during the first episode another 2 mg of Ativan during the second episode bringing her up to a total of 4 mg. She was loaded with Keppra 500 mg IV and dose adjustment was done based on the underlying renal failure. Noted the patient does not have any history of seizure activity or seizure disorder. She is currently afebrile. I was asked to move the patient to the intensive care unit for further monitoring. A repeat CAT scan of the brain was done and it showed atrophy with chronic appearing periventricular white matter ischemic changes and the findings were essentially stable. At this point in time, the patient is on 2 L of oxygen by nasal cannula. The patient remains on IV cefazolin. Review of Systems ROS unobtainable: due to mental status Past Medical History Past Medical History: Dementia, Diabetes Mellitus, Hyperlipidemia, Hypertension, Thyroid Disorder History of Any Multi-Drug Resistant Organisms: None Reported Past Surgical History: Unable to Obtain Past Anesthesia/Blood Transfusion Reactions: No Reported Reaction Past Psychological History: Depression Smoking Status: Never smoker Past Alcohol Use History: None Reported Past Drug Use History: None Reported - Past Family History Brother(s) Additional Family Medical History / Comment(s): Unable to obtain due to patient's underlying dementia Medications and Allergies Home Medications Medication Instructions Recorded Confirmed Type ARIPiprazole 5 mg PO DAILY 07/27/22 01/04/24 History Acetaminophen Tab [Tylenol] 500 mg PO Q6H PRN 07/27/22 01/04/24 History Alendronate Sodium 70 mg PO CALABRESE 07/27/22 01/04/24 History Aspirin EC [Ecotrin Low Dose] 81 mg PO DAILY 07/27/22 01/04/24 History Citalopram Hydrobromide 20 mg PO DAILY 07/27/22 01/04/24 History [Citalopram HBr] Cyanocobalamin (Vitamin B-12) 1,000 mcg PO DAILY 07/27/22 01/04/24 History [Vitamin B-12] Levothyroxine Sodium 100 mcg PO DAILY 07/27/22 01/04/24 History Simvastatin [Zocor] 80 mg PO DAILY 07/27/22 01/04/24 History metFORMIN HCL [Glucophage] 500 mg PO TID 07/27/22 01/04/24 History Carbidopa-Levodopa 25-100 mg 1 tab PO QID 10/30/23 01/04/24 History [Sinemet 25-100 mg] Ferrous Sulfate [Feosol] 325 mg PO DAILY 01/04/24 01/04/24 History Furosemide [Lasix] 20 mg PO DAILY 01/04/24 01/04/24 History Allergies Allergy/AdvReac Type Severity Reaction Status Date / Time peanut AdvReac "Watery Verified 01/04/24 11:08 eyes" Physical Exam Vitals: Vital Signs Temp Pulse Pulse Resp BP BP Pulse Ox 01/09/24 15:00 82 14 141/71 98 01/09/24 14:00 80 13 141/71 97 01/09/24 13:28 12 95 01/09/24 13:00 98.2 F 83 12 134/68 95 01/09/24 12:52 82 22 96 01/09/24 10:20 81 15 139/60 98 01/09/24 09:40 111 H 18 169/72 96 01/09/24 08:00 97.4 F L 80 16 138/65 94 L 01/09/24 01:24 98.0 F 83 18 159/72 97 01/08/24 20:03 98.1 F 87 16 157/66 96 01/08/24 18:27 80 16 152/73 98 Intake and Output 01/09/24 01/09/24 01/09/24 06:59 14:59 22:59 Intake Total 75 75 Output Total 300 172 30 Balance -300 -97 45 Intake: IV 75 75 Sodium Chloride 0.9% 1, 75 75 000 ml @ 75 mls/hr IV . [id number] [facility] Rx#:[id number] Output: Urine 300 172 30 Other: Voiding Method Indwelling Catheter # Bowel Movements 1 Weight 83.915 kg General: appears stated age.,, Comfortable the patient is currently on 2 L of oxygen by nasal cannula. Derm: Skin warm and dry, normal coloration for ethnicity. Head: Atraumatic, normocephalic and symmetric. Eyes: no lid lag, and anicteric sclera, EOMI Mouth: no lip lesions, mucus membranes moist Cardiovascular: regular rate and rhythm with normal S1S2, systolic murmur, positive posterior tibial pulses bilaterally, and cap refill < 2 seconds. Lungs: Respirations even, regular, and unlabored on room air. Lungs CTA bilaterally, no rhonchi, no rales, no wheezing, and no accessory muscle usage. Abdominal: soft, nontender to palpation, no guarding, no appreciable organomegaly Ext: Left upper extremity in a sling, left arm edema Neuro: Leftward gaze increased right arm tone, do not exam is suboptimal as the patient is under the effect of Ativan and she could be also in a postictal state. Her current gaze is in the midline. Pupils are round 3 mm in size and reactive to light. No facial asymmetry. Motor and sensory function cannot be obtained and the plantars are mute bilaterally. Psych: Unable to assess Results - Laboratory Findings CBC and BMP: 01/09/24 08:16 01/09/24 08:16 PT/INR, D-dimer PT 11.6 sec (10.0-12.5) 01/09/24 14:10 INR 1.1 (<1.2) 01/09/24 14:10 Abnormal lab findings: Abnormal Labs 01/04/24 01/04/24 01/04/24 09:09 09:09 09:09 WBC 19.3 H RBC 2.73 L Hgb 7.4 L Hct 22.6 L RDW 16.2 H Neutrophils # 18.0 H Lymphocytes # 0.4 L ESR APTT 21.9 L Sodium Potassium Chloride Carbon Dioxide BUN Creatinine Glucose POC Glucose (mg/dL) Hemoglobin A1c Calcium Magnesium Iron TIBC % Saturation Transferrin Troponin I C-Reactive Protein Total Protein Albumin Urine Appearance Cloudy H Urine Protein 2+ H Urine Ketones Trace H Urine Blood Large H Ur Leukocyte Esterase Moderate H Urine RBC >182 H Urine WBC 69 H Urine WBC Clumps Moderate H Ur Squamous Epith Cells Urine Bacteria Occasional H Urine Mucus Rare H Urine Yeast (Budding) Moderate H Urine Opiates Screen Detected H Crossmatch 01/04/24 01/04/24 01/04/24 09:09 09:09 14:12 WBC RBC Hgb Hct RDW Neutrophils # Lymphocytes # ESR APTT Sodium 133 L Potassium 5.4 H Chloride 97 L Carbon Dioxide BUN 62 H Creatinine 2.93 H Glucose 102 H POC Glucose (mg/dL) Hemoglobin A1c Calcium 11.8 H Magnesium Iron TIBC % Saturation Transferrin Troponin I 0.251 H* 0.432 H* C-Reactive Protein Total Protein Albumin 2.9 L Urine Appearance Urine Protein Urine Ketones Urine Blood Ur Leukocyte Esterase Urine RBC Urine WBC Urine WBC Clumps Ur Squamous Epith Cells Urine Bacteria Urine Mucus Urine Yeast (Budding) Urine Opiates Screen Crossmatch 01/04/24 01/04/24 01/05/24 16:30 18:08 06:52 WBC RBC Hgb Hct RDW Neutrophils # Lymphocytes # ESR APTT Sodium 134 L Potassium Chloride Carbon Dioxide BUN 56 H Creatinine 2.83 H Glucose POC Glucose (mg/dL) Hemoglobin A1c 6.1 H Calcium 10.6 H Magnesium Iron TIBC % Saturation Transferrin Troponin I 0.505 H* C-Reactive Protein Total Protein Albumin Urine Appearance Urine Protein Urine Ketones Urine Blood Ur Leukocyte Esterase Urine RBC Urine WBC Urine WBC Clumps Ur Squamous Epith Cells Urine Bacteria Urine Mucus Urine Yeast (Budding) Urine Opiates Screen Crossmatch 01/05/24 01/05/24 01/05/24 06:52 06:52 06:52 WBC 13.1 H RBC 2.25 L Hgb 6.0 L* Hct 19.3 L* RDW 16.4 H Neutrophils # 11.3 H Lymphocytes # ESR APTT Sodium 134 L Potassium Chloride Carbon Dioxide BUN 58 H Creatinine 3.04 H Glucose 73 L POC Glucose (mg/dL) Hemoglobin A1c Calcium Magnesium Iron 10 L TIBC 199 L % Saturation 5.03 L Transferrin 142.0 L Troponin I C-Reactive Protein Total Protein Albumin Urine Appearance Urine Protein Urine Ketones Urine Blood Ur Leukocyte Esterase Urine RBC Urine WBC Urine WBC Clumps Ur Squamous Epith Cells Urine Bacteria Urine Mucus Urine Yeast (Budding) Urine Opiates Screen Crossmatch 01/05/24 01/05/24 01/05/24 10:11 11:18 16:20 WBC RBC Hgb Hct RDW Neutrophils # Lymphocytes # ESR APTT Sodium Potassium Chloride Carbon Dioxide BUN Creatinine Glucose POC Glucose (mg/dL) 118 H 160 H Hemoglobin A1c Calcium Magnesium Iron TIBC % Saturation Transferrin Troponin I C-Reactive Protein Total Protein Albumin Urine Appearance Urine Protein Urine Ketones Urine Blood Ur Leukocyte Esterase Urine RBC Urine WBC Urine WBC Clumps Ur Squamous Epith Cells Urine Bacteria Urine Mucus Urine Yeast (Budding) Urine Opiates Screen Crossmatch See Detail 01/05/24 01/05/24 01/05/24 20:17 20:28 23:39 WBC 11.2 H 11.6 H RBC 2.59 L 2.65 L Hgb 7.3 L 7.3 L Hct 22.0 L 22.4 L RDW 15.9 H 16.1 H Neutrophils # 9.1 H Lymphocytes # ESR APTT Sodium Potassium Chloride Carbon Dioxide BUN Creatinine Glucose POC Glucose (mg/dL) 174 H Hemoglobin A1c Calcium Magnesium Iron TIBC % Saturation Transferrin Troponin I C-Reactive Protein Total Protein Albumin Urine Appearance Urine Protein Urine Ketones Urine Blood Ur Leukocyte Esterase Urine RBC Urine WBC Urine WBC Clumps Ur Squamous Epith Cells Urine Bacteria Urine Mucus Urine Yeast (Budding) Urine Opiates Screen Crossmatch 01/06/24 01/06/24 01/06/24 06:02 06:02 06:10 WBC RBC 2.70 L Hgb 7.4 L Hct 22.7 L RDW 16.1 H Neutrophils # Lymphocytes # ESR APTT Sodium 132 L Potassium Chloride Carbon Dioxide BUN 57 H Creatinine 3.32 H Glucose 135 H POC Glucose (mg/dL) 161 H Hemoglobin A1c Calcium Magnesium 2.4 H Iron TIBC % Saturation Transferrin Troponin I C-Reactive Protein Total Protein Albumin Urine Appearance Urine Protein Urine Ketones Urine Blood Ur Leukocyte Esterase Urine RBC Urine WBC Urine WBC Clumps Ur Squamous Epith Cells Urine Bacteria Urine Mucus Urine Yeast (Budding) Urine Opiates Screen Crossmatch 01/06/24 01/06/24 01/06/24 10:55 11:15 16:31 WBC RBC 2.77 L Hgb 7.7 L Hct 23.6 L RDW 16.2 H Neutrophils # Lymphocytes # ESR APTT Sodium Potassium Chloride Carbon Dioxide BUN Creatinine Glucose POC Glucose (mg/dL) 164 H 136 H Hemoglobin A1c Calcium Magnesium Iron TIBC % Saturation Transferrin Troponin I C-Reactive Protein Total Protein Albumin Urine Appearance Urine Protein Urine Ketones Urine Blood Ur Leukocyte Esterase Urine RBC Urine WBC Urine WBC Clumps Ur Squamous Epith Cells Urine Bacteria Urine Mucus Urine Yeast (Budding) Urine Opiates Screen Crossmatch 01/06/24 01/06/24 01/06/24 17:45 19:57 22:43 WBC RBC 2.77 L Hgb 7.7 L Hct 23.5 L RDW 16.1 H Neutrophils # Lymphocytes # ESR APTT Sodium Potassium Chloride Carbon Dioxide BUN Creatinine Glucose POC Glucose (mg/dL) 127 H Hemoglobin A1c Calcium Magnesium Iron TIBC % Saturation Transferrin Troponin I C-Reactive Protein Total Protein Albumin Urine Appearance Cloudy H Urine Protein 1+ H Urine Ketones Urine Blood Moderate H Ur Leukocyte Esterase Moderate H Urine RBC >182 H Urine WBC 32 H Urine WBC Clumps Ur Squamous Epith Cells 5 H Urine Bacteria Occasional H Urine Mucus Rare H Urine Yeast (Budding) Urine Opiates Screen Crossmatch 01/07/24 01/07/24 01/07/24 06:01 07:28 07:28 WBC RBC 2.86 L Hgb 7.9 L Hct 24.3 L RDW 16.1 H Neutrophils # 8.8 H Lymphocytes # ESR 44 H APTT Sodium 136 L Potassium Chloride 109 H Carbon Dioxide 18 L BUN 54 H Creatinine 3.74 H Glucose POC Glucose (mg/dL) 111 H Hemoglobin A1c Calcium Magnesium Iron TIBC % Saturation Transferrin Troponin I C-Reactive Protein 6.3 H Total Protein 5.4 L Albumin 2.2 L Urine Appearance Urine Protein Urine Ketones Urine Blood Ur Leukocyte Esterase Urine RBC Urine WBC Urine WBC Clumps Ur Squamous Epith Cells Urine Bacteria Urine Mucus Urine Yeast (Budding) Urine Opiates Screen Crossmatch 01/07/24 01/07/24 01/07/24 11:30 16:14 20:04 WBC RBC Hgb Hct RDW Neutrophils # Lymphocytes # ESR APTT Sodium Potassium Chloride Carbon Dioxide BUN Creatinine Glucose POC Glucose (mg/dL) 111 H 134 H 133 H Hemoglobin A1c Calcium Magnesium Iron TIBC % Saturation Transferrin Troponin I C-Reactive Protein Total Protein Albumin Urine Appearance Urine Protein Urine Ketones Urine Blood Ur Leukocyte Esterase Urine RBC Urine WBC Urine WBC Clumps Ur Squamous Epith Cells Urine Bacteria Urine Mucus Urine Yeast (Budding) Urine Opiates Screen Crossmatch 01/08/24 01/08/24 01/08/24 07:00 07:00 11:29 WBC RBC 2.79 L Hgb 7.7 L Hct 23.8 L RDW 16.1 H Neutrophils # 8.7 H Lymphocytes # ESR APTT Sodium Potassium Chloride 111 H Carbon Dioxide 17 L BUN 52 H Creatinine 4.05 H Glucose POC Glucose (mg/dL) 117 H Hemoglobin A1c Calcium 8.1 L Magnesium Iron TIBC % Saturation Transferrin Troponin I C-Reactive Protein Total Protein 5.2 L Albumin 2.1 L Urine Appearance Urine Protein Urine Ketones Urine Blood Ur Leukocyte Esterase Urine RBC Urine WBC Urine WBC Clumps Ur Squamous Epith Cells Urine Bacteria Urine Mucus Urine Yeast (Budding) Urine Opiates Screen Crossmatch 01/08/24 01/08/24 01/09/24 17:08 20:05 06:02 WBC RBC Hgb Hct RDW Neutrophils # Lymphocytes # ESR APTT Sodium Potassium Chloride Carbon Dioxide BUN Creatinine Glucose POC Glucose (mg/dL) 170 H 152 H 186 H Hemoglobin A1c Calcium Magnesium Iron TIBC % Saturation Transferrin Troponin I C-Reactive Protein Total Protein Albumin Urine Appearance Urine Protein Urine Ketones Urine Blood Ur Leukocyte Esterase Urine RBC Urine WBC Urine WBC Clumps Ur Squamous Epith Cells Urine Bacteria Urine Mucus Urine Yeast (Budding) Urine Opiates Screen Crossmatch 01/09/24 01/09/24 01/09/24 08:16 08:16 11:49 WBC RBC 2.99 L Hgb 8.4 L Hct 25.8 L RDW 16.0 H Neutrophils # Lymphocytes # ESR APTT Sodium 134 L Potassium Chloride Carbon Dioxide BUN 52 H Creatinine 3.96 H Glucose 203 H POC Glucose (mg/dL) 213 H Hemoglobin A1c Calcium 7.6 L Magnesium Iron TIBC % Saturation Transferrin Troponin I C-Reactive Protein Total Protein Albumin Urine Appearance Urine Protein Urine Ketones Urine Blood Ur Leukocyte Esterase Urine RBC Urine WBC Urine WBC Clumps Ur Squamous Epith Cells Urine Bacteria Urine Mucus Urine Yeast (Budding) Urine Opiates Screen Crossmatch 01/09/24 12:55 WBC RBC Hgb Hct RDW Neutrophils # Lymphocytes # ESR APTT Sodium Potassium Chloride Carbon Dioxide BUN Creatinine Glucose POC Glucose (mg/dL) 201 H Hemoglobin A1c Calcium Magnesium Iron TIBC % Saturation Transferrin Troponin I C-Reactive Protein Total Protein Albumin Urine Appearance Urine Protein Urine Ketones Urine Blood Ur Leukocyte Esterase Urine RBC Urine WBC Urine WBC Clumps Ur Squamous Epith Cells Urine Bacteria Urine Mucus Urine Yeast (Budding) Urine Opiates Screen Crossmatch Assessment and Plan Plan: New onset seizure with status epilepticus and the patient was given a total of 4 mg of IV Ativan on the floor and the patient currently is in the intensive care unit. No ongoing seizure activity at least on clinical grounds. The patient was loaded with IV Keppra. The patient was also started on Vimpat neurology on the case. CAT scan of the brain showed atrophy and periventricular white matter changes without any significant changes compared to her CAT scan of the brain that was done at time of admission. She is afebrile. No neck stiffness MSSA bacteremia/sepsis currently on IV cefazolin Left shoulder swelling, rule out septic arthritis. The patient has left humeral head collapse, consider AVN versus neuropathic arthropathy. Possibility of a septic arthritis cannot be ruled out. Fractures could be related to seizures and the patient is currently wearing a sling and orthopedic surgery is on the case. MRI of the shoulder is pending. X-ray of the shoulder showed new large bony defect in the humeral head along with some osseous density just below the surgical neck level of the humerus Pelvic fracture related to seizure/fall. Pelvic fracture was present approximately 6 weeks ago, and the patient has superior and inferior pubic rami fracture on the right Acute kidney injury Alzheimer's dementia Hypertension Hyperlipidemia Hypothyroidism [id number] diabetes mellitus Iron deficiency anemia History of recurrent urine tract infection most recent infections with E. coli Abnormal troponins, consider type II myocardial ischemia, echo of the heart shows a preserved LV function with a normal ejection fraction of 55 to 60% History of Parkinson's disease DNR/DNI CODE STATUS Plan Admit the patient to the intensive care unit Seizure precautions Neurology consultation has been obtained Vimpat 100 mg IV twice daily Ativan as needed for breakthrough seizures EEG Lumbar puncture MRI of the brain MRI of the shoulder Orthopedic surgery evaluation in progress regarding the left shoulder/humeral head collapse IV cefazolin regarding MSSA bacteremia and the patient is being seen by infe ctious disease IV fluids normal saline at rate of 75 cc an hour Resume home medications and assess swallow Nephrology regarding the acute kidney injury DNR/DNI CODE STATUS Will follow
[2024-01-09 16:31] LABS: Glucose,CSF 107 mg/dL (40-70); Total Protein,CSF 44 mg/dL (12-60)
[2024-01-09 17:12] LABS: Glucose,Whole Blood 149 mg/dL (70-110)
[2024-01-09] MEDS: ERTAPENEM 0.5 GM in SODIUM CHLORIDE 0.9% 50 ML IVPB SCH (18:20)
[2024-01-09 18:25] LABS: Appearance,CSF Clear; CSF Tube Number 4; CSF Tube Volume 4.5; Nucleated Cells, CSF 1 u/L (0-5)
[2024-01-09 18:26] LABS: Red Blood Cell,CSF 17 u/L (0-10)
[2024-01-09 18:27] LABS: Red Blood Cell, CSF Fresh 100 %
[2024-01-09 19:36] LABS: Glucose,Whole Blood 133 mg/dL (70-110)
[2024-01-09] MEDS: Lacosamide IV (ages 17+ yrs) 200 MG/20 ML ML IVP SCH (20:38)
--- NOTE | 2024-01-09 21:07 | US ---
EXAMINATION TYPE: US venous doppler duplex LE LT DATE OF EXAM: 01/09/2024 2:17 PM COMPARISON: NONE CLINICAL INDICATION: Female, 78 years old with history of edema; left leg edema SIDE PERFORMED: Left TECHNIQUE: The lower extremity deep venous system is examined utilizing real time linear array sonog bryan with graded compression, doppler sonography and color-flow sonography. VESSELS IMAGED: Common Femoral Vein Deep Femoral Vein Greater Saphenous Vein * Femoral Vein Popliteal Vein Small Saphenous Vein * Proximal Calf Veins (* superficial vessels) Left Leg: Negative for DVT Trim Attacher notes: limited due to edema and patient unable to move well IMPRESSION: No evidence for DVT within the left lower extremity imaged from the groin to the knee.
--- NOTE | 2024-01-09 21:44 | P.PN ---
Subjective Progress Note Date: 01/09/24 Principal diagnosis: Reason for follow-up is MSSA bacteremia Patient is a 78-year-old female past medical history pertinent for diabetes mellitus hypertension hyperlipidemia dementia and depression brought into the hospital for evaluation of worsening dementia/confusion noticed to have positive UA and did have MSSA bacteremia also abnormality to the left humeral head on the x-ray. On today's evaluation that is On today's visit that is 01/09/2024, patient did have significant change in her clinical condition as the patient did have seizure activity and the patient was transferred to the ICU, patient is however afebrile hemodynamically stable not requiring any pressor support patient is on 2 L nasal cannula oxygen patient was lethargic at the time of evaluation and no history could be provided no vomiting or diarrhea has been reported. Patient did have white count 9.3 creatinine 3.9 6 repeat urine culture negative blood culture repeat as of 01/06/2024 as well as 01/07/2024 negative Objective - Vital Signs Vital signs: Vital Signs Temp 98.2 F 01/09/24 13:00 Pulse 82 01/09/24 15:00 Resp 14 01/09/24 15:00 BP 141/71 01/09/24 15:00 Pulse Ox 98 01/09/24 15:00 FiO2 Intake & Output 01/08/24 01/09/24 01/09/24 18:59 06:59 18:59 Intake Total 0 150 Output Total 200 500 202 Balance -200 -500 -52 Weight 83.915 kg Intake: IV 150 Sodium Chloride 0.9% 1, 150 000 ml @ 75 mls/hr IV . [id number] [facility] Rx#:[id number] Oral 0 Output: Urine 200 500 202 Other: Voiding Method Indwelling Catheter Indwelling Catheter Indwelling Catheter # Bowel Movements 2 1 - Exam GENERAL DESCRIPTION: An elderly female lying in bed in no distress RESPIRATORY SYSTEM: Unlabored breathing , decreased breath sounds at bases HEART: S1 S2 regular rate and rhythm , ABDOMEN: Soft , no tenderness EXTREMITIES: No edema feet - Labs CBC & Chem 7: 01/09/24 08:16 01/09/24 08:16 Labs: Abnormal Lab Results - Last 24 Hours (Table) 01/08/24 01/08/24 01/09/24 Range/Units 17:08 20:05 06:02 RBC (3.80-5.40) m/uL Hgb (11.4-16.0) gm/dL Hct (34.0-46.0) % RDW (11.5-15.5) % Sodium (137-145) mmol/L BUN (7-17) mg/dL Creatinine (0.52-1.04) mg/dL Glucose (74-99) mg/dL POC Glucose (mg/dL) 170 H 152 H 186 H (70-110) mg/dL Calcium (8.4-10.2) mg/dL 01/09/24 01/09/24 01/09/24 Range/Units 08:16 08:16 11:49 RBC 2.99 L (3.80-5.40) m/uL Hgb 8.4 L (11.4-16.0) gm/dL Hct 25.8 L (34.0-46.0) % RDW 16.0 H (11.5-15.5) % Sodium 134 L (137-145) mmol/L BUN 52 H (7-17) mg/dL Creatinine 3.96 H (0.52-1.04) mg/dL Glucose 203 H (74-99) mg/dL POC Glucose (mg/dL) 213 H (70-110) mg/dL Calcium 7.6 L (8.4-10.2) mg/dL 01/09/24 Range/Units 12:55 RBC (3.80-5.40) m/uL Hgb (11.4-16.0) gm/dL Hct (34.0-46.0) % RDW (11.5-15.5) % Sodium (137-145) mmol/L BUN (7-17) mg/dL Creatinine (0.52-1.04) mg/dL Glucose (74-99) mg/dL POC Glucose (mg/dL) 201 H (70-110) mg/dL Calcium (8.4-10.2) mg/dL Microbiology - Last 24 Hours (Table) 01/06/24 06:05 Blood Culture - Preliminary Blood 01/07/24 07:28 Blood Culture - Preliminary Blood 01/06/24 22:43 Urine Culture - Final Urine,Voided Assessment and Plan (1) MSSA bacteremia Current Visit: Yes Status: Acute Code(s): R78.81 - BACTEREMIA; B95.61 - METHICILLIN SUSCEP STAPH INFCT CAUSING DIS CLASSD TREVORWHR SNOMED Code(s): 029727065 Plan: 1-1patient is a 78-year-old female with multiple comorbidities presenting to the hospital with confusion and mental status changes did have a low-grade fever elevated white count and now with evidence of MSSA bacteremia source is likely left shoulder which was large bony defect of the humeral head articular surface which was not seen on October 30, 2023 x-ray as currently no other obvious focus for this bacteremia, MRI of the left shoulder is currently pending 2-blood cultures repeated on 01/06/2024 as well as 01/07/2024 so far negative 3-patient is also growing ESBL E. coli in the urine however the patient denies urinary symptoms question of possible asymptomatic bacteriuria, the patient repeat urine cultures are negative 4-patient to continue with cefazolin and will await for the MRI to be completed 5-patient did have seizure activity neurology is following the patient LP has been ordered we will follow results clinically not behaving as meningitis or encephalitis Dictation was produced using [employer] dictation software. please excuse any grammatical, word or spelling errors. Time with Patient: Greater than 30
--- NOTE | 2024-01-10 02:02 | EEG ---
ELECTROENCEPHALOGRAM REPORT CLINICAL HISTORY: This is a 78-year-old woman who had 2 seizure-like activity today in the morning and received 4 mg Ativan. The video EEG is obtained to evaluate for seizure epileptiform activity. RELEVANT MEDICATION: 4 mg of Ativan as well as Keppra. EEG TYPE: That is a routine 21-channel EEG is reviewed a routine 21 channel EEG with video using the 10/20 electrode placement system. DESCRIPTION: The background consists of [id number] voltage of low to moderate nonrhythmic polymorphic 2-3 hertz delta activity. At times, the background consists of theta activity. There is no physiological stage 2 sleep architecture. There is no focal slowing. Interictal and ictal is none. There is excessive beta activity. ACTIVATION PROCEDURE: Photic stimulation did not evoke a posterior driving response. There is no abnormality during the photic stimulation. Hyperventilation is not performed. CLINICAL INTERPRETATION: This is an abnormal routine EEG. The background slowing is suggestive of severe encephalopathy. The excessive beta activity is likely due to medication effect (Ativan). Otherwise, there is no focal slowing, epileptiform discharge, or seizure on the EEG. Clinical correlation is recommended. MMODL / IJN: [id number] / MARQUITA
[2024-01-10 05:40] LABS: HCT 24.8 % (34.0-46.0); HGB 7.9 gm/dL (11.4-16.0); Hypochromasia Slight; MCH 26.9 pg (25.0-35.0); MCHC 31.7 g/dL (31.0-37.0); MCV 84.9 fL (80.0-100.0); Mean Platelet Volume 7.1; Platelet Count 265 k/uL (150-450); RBC 2.92 m/uL (3.80-5.40); RDW 15.8 % (11.5-15.5); WBC 9.8 k/uL (3.8-10.6)
[2024-01-10 05:55] LABS: African American GFR (CKD) 12 (>60 ml/min/1.73 sqM); Anion Gap 7 mmol/L; Blood Urea Nitrogen 51 mg/dL (7-17); Calcium 7.3 mg/dL (8.4-10.2); Carbon Dioxide 22 mmol/L (22-30); Chloride 107 mmol/L (98-107); Glucose 94 mg/dL (74-99); Magnesium 1.8 mg/dL (1.6-2.3); Non-African American GFR(CKD) 10 (>60 ml/min/1.73 sqM); Potassium 3.4 mmol/L (3.5-5.1); Sodium 136 mmol/L (137-145)
[2024-01-10 06:36] LABS: Glucose,Whole Blood 110 mg/dL (70-110)
[2024-01-10] MEDS: POTASSIUM CHLORIDE 10 MEQ in WATER FOR INJECTION 1 100ML.BAG IVPB SCH (10:20)
--- NOTE | 2024-01-10 10:31 | P.PN ---
Subjective Patient is seen in follow-up for acute kidney injury. Renal function fairly stable. Urine output 20 to 40 cc an hour. Has Rodriguez catheter. Receiving IV fluids. Poor historian. Vital signs are stable. General: Resting in bed. Lethargic. HEENT: Head exam is unremarkable. LUNGS: No audible rhonchi or wheezes. HEART: Rate and Rhythm are regular. ABDOMEN: Nontender. EXTREMITITES: No edema. Objective - Vital Signs Vital signs: Vital Signs Temp 98.7 F 01/10/24 08:00 Pulse 69 01/10/24 10:00 Resp 12 01/10/24 10:00 BP 151/74 01/10/24 10:00 Pulse Ox 98 01/10/24 10:00 FiO2 Intake & Output 01/09/24 01/10/24 01/10/24 18:59 06:59 18:59 Intake Total 375 900 300 Output Total 284 440 125 Balance 91 460 175 Weight 83.915 kg 60.6 kg Intake: IV 375 900 300 Sodium Chloride 0.9% 1, 375 900 300 000 ml @ 75 mls/hr IV . [id number] [facility] Rx#:[id number] Output: Urine 284 440 125 Other: Voiding Method Indwelling Catheter Indwelling Catheter # Bowel Movements 1 - Labs CBC & Chem 7: 01/10/24 05:25 01/10/24 05:25 Labs: Abnormal Lab Results - Last 24 Hours (Table) 01/09/24 01/09/24 01/09/24 Range/Units 11:49 12:55 15:19 RBC (3.80-5.40) m/uL Hgb (11.4-16.0) gm/dL Hct (34.0-46.0) % RDW (11.5-15.5) % Sodium (137-145) mmol/L Potassium (3.5-5.1) mmol/L BUN (7-17) mg/dL Creatinine (0.52-1.04) mg/dL POC Glucose (mg/dL) 213 H 201 H (70-110) mg/dL Calcium (8.4-10.2) mg/dL CSF RBC 17 H (0-10) u/L CSF Glucose 107 H (40-70) mg/dL 01/09/24 01/09/24 01/10/24 Range/Units 17:11 19:35 05:25 RBC 2.92 L (3.80-5.40) m/uL Hgb 7.9 L (11.4-16.0) gm/dL Hct 24.8 L (34.0-46.0) % RDW 15.8 H (11.5-15.5) % Sodium (137-145) mmol/L Potassium (3.5-5.1) mmol/L BUN (7-17) mg/dL Creatinine (0.52-1.04) mg/dL POC Glucose (mg/dL) 149 H 133 H (70-110) mg/dL Calcium (8.4-10.2) mg/dL CSF RBC (0-10) u/L CSF Glucose (40-70) mg/dL 01/10/24 Range/Units 05:25 RBC (3.80-5.40) m/uL Hgb (11.4-16.0) gm/dL Hct (34.0-46.0) % RDW (11.5-15.5) % Sodium 136 L (137-145) mmol/L Potassium 3.4 L (3.5-5.1) mmol/L BUN 51 H (7-17) mg/dL Creatinine 3.99 H (0.52-1.04) mg/dL POC Glucose (mg/dL) (70-110) mg/dL Calcium 7.3 L (8.4-10.2) mg/dL CSF RBC (0-10) u/L CSF Glucose (40-70) mg/dL Microbiology - Last 24 Hours (Table) 01/09/24 15:19 CSF Gram Stain - Preliminary Cerebral Spinal Fluid 01/07/24 07:28 Blood Culture - Preliminary Blood 01/06/24 06:05 Blood Culture - Preliminary Blood Assessment and Plan Plan: Assessment: 1. Acute kidney injury secondary to ATN secondary to severe sepsis. Creatinine 0.9 dated December 06, 2023. Creatinine peaked at 4.05 this admission -3.99 today. No hydronephrosis noted on kidney ultrasound/CT. 2. Severe sepsis secondary to Staph aureus bacteremia and E. coli UTI on antibiotics. 3. Metabolic acidosis secondary to acute kidney injury on IV fluids. Status post bicarb drip. 4. Acute blood loss anemia status post blood transfusion this admission. Hemoglobin 7.9. 5. Benign hypertension. Stable. 6. Seizure-like activity. Neurology following. Status post LP, CAT scan and EEG. 7. Hypokalemia from poor intake. Plan: Maintain normal saline. Maintain Rodriguez catheter. Strict I's and O's. Avoid nephrotoxins. Continue to monitor renal function and urine output. Avoid IV iron in the setting of acute infection. Replace potassium.
--- NOTE | 2024-01-10 11:26 | P.PN ---
Subjective Progress Note Date: 01/10/24 Hospital course: Patient is a very pleasant 78-year-old female with a past medical history of Alzheimer's dementia with baseline mentation alert and oriented x 1-2, hypertension, hyperlipidemia, hypothyroidism, sop-ieeikba-bivjccren diabetes mellitus, iron deficiency anemia, recurrent UTIs, and history of prior pelvic fracture with chronic pelvic pain. She presented to the emergency department with a chief complaint of worsening confusion. Patient's reports that his is normally confused but he has noticed worsening confusion and a decreased appetite over the past few days. She underwent full evaluation in the emergency department. Vital signs upon arrival show blood pressure 132/63, heart rate 96, respiratory rate 20, temp 99.6 F, and SpO2 of 100% on room air. EKG completed showing normal sinus rhythm at 98 bpm with no significant T wave or ST abnormalities showing no signs of acute ischemia upon personal review and interpretation. CT brain completed and negative for acute intracranial process with radiology report stating stable chronic appearing patchy periventricular white matter ischemic changes with atrophy. Chest x-ray completed and was negative for acute cardiopulmonary process. X-ray left shoulder completed showing large bony defect in the humeral head articular surface. Pelvis x-ray completed showing known superior and inferior pubic rami fracture on the right reporting these as subacute incompletely healed fractures but reporting the superior pubic ramus fracture has displaced now by 9 mm versus 3 mm previously. Labs were completed and reviewed. CBC showing leukocytosis with a WBC count of 19.3 and hemoglobin of 7.4 (with a baseline hemoglobin of around 7.5). BMP showing hyponatremia with sodium of 133, hyperkalemia with potassium of 5.4, hypochloremia with chloride of 97, and an acute kidney injury with BUN of 62, creatinine 2.93, and GFR of 15 with baseline creatinine of 0.9. Calcium high at 11.8. Liver profile showing no significant abnormalities with the exception of low albumin of 2.9. Initial troponin elevated at 0.251. Urinalysis positive for protein, ketones, blood, leukocyte esterase, greater than 182 RBCs, and 69 WBCs. Influenza A, influenza B, COVID, and RSV were negative. Patient was admitted under our services with consultation to cardiology, nephrology and orthopedic surgery. Troponins trended overnight resulting at 0.251, 0.432, and 0.505. Orthopedic surgery evaluated, recommending conservative measures with use of sling to left upper extremity. Orthopedic team also recommending patient may perform gentle range of motion exercises of left upper extremity as tolerated, remain nonweightbearing to left upper extremity and in regards to pubic rami fracture patient may be weightbearing as tolerated and ambulate with walker with assistance. Renal function continues to worsen. Nephrology also consulted. Patient also found to have MSSA bacteremia. ID also consulted. Currently on IV antibiotics. Source unclear. On 01/09/2024 patient had status epilepticus, did resolve with IV Ativan and IV Keppra. Neurology consulted. Patient transferred to medical ICU. Pending MRI brain and left shoulder Subjective: Patient seen and examined at bedside. No acute events overnight. No seizure- like activity noted. Rodriguez catheter in place. Making urine. Physical exam: Vital signs reviewed and stable. General: appears stated age., Somnolent Derm: Skin warm and dry, normal coloration for ethnicity. Head: Atraumatic, normocephalic and symmetric. Eyes: no lid lag, and anicteric sclera, EOMI Mouth: no lip lesions, mucus membranes moist Cardiovascular: regular rate and rhythm with normal S1S2, systolic murmur, positive posterior tibial pulses bilaterally, and cap refill < 2 seconds. Lungs: Respirations even, regular, and unlabored on room air. Lungs CTA bilaterally, no rhonchi, no rales, no wheezing, and no accessory muscle usage. Abdominal: soft, nontender to palpation, no guarding, no appreciable organomegaly Ext: Left upper extremity in a sling, left arm edema Neuro: Somnolent, response to pain stimuli Psych: Unable to assess Assessment and Plan of Care: Patient is severely ill, needs close monitoring. Prognosis guarded. Status post Status epilepticus Discussed management with neurology, pending brain MRI Continue IV Vimpat 200 twice daily IV Ativan 2 mg every 6 hours as needed for seizures Seizure precautions Lumbar puncture does not show any infectious process MRI brain without contrast pending Patient currently in ICU EEG did not show any epileptiform discharges, however patient was medicated with antiepileptics prior to EEG MSSA bacteremia, unclear source UTI unlikely Acute kidney injury with oliguria, stable Acute on chronic Iron Deficiency anemia, status post 1 unit of PRBCs Hyperkalemia, resolved Hypokalemia -Discussed management with nephrology, continue normal saline at 75 cc an hour, strict I's and O's, maintain Rodriguez catheter, avoid IV iron -Patient getting IV potassium replacement -Hemoglobin stable, no active bleeding -ID following, patient maintained on cefazolin 2 g IV every 12 hours, patient needs MRI of left shoulder, which is pending -Repeat blood cultures no growth to date -Echocardiogram does not show any valvular vegetation -Patient to remain on continuous telemetry monitoring. -Continue ferrous sulfate 325 mg daily, and ascorbic acid, hold off IV iron Elevated troponins, type II NSTEMI -Chest pain-free, cardiology signed off -Continue aspirin 81 mg daily and atorvastatin 40 mg daily. -Patient to remain on continuous telemetry monitoring Acute metabolic encephalopathy, possibly in the setting of seizures Alzheimer's dementia Parkinson's disease -Continue daily medication regimen with carbidopa levodopa 25/100 mg tablets 4 times daily. Left shoulder and pelvic pain Right-sided superior and inferior pubic rami fractures, chronic Left shoulder humeral head collapse, possibly secondary to AVN vs neuropathic arthropathy -Fractures possibly in the setting of seizures -Orthopedic surgery consulted, recommending conservative measures with use of sling to left upper extremity. Orthopedic team also recommending patient may perform gentle range of motion exercises of left upper extremity as tolerated, remain nonweightbearing to left upper extremity and in regards to pubic rami fracture patient may be weightbearing as tolerated and ambulate with walker with assistance. -Left upper extremity Doppler pending, patient has edema Type II non-insulin dependent diabetes mellitus -Continue to hold metformin -Continue sliding scale insulin, monitor for hypoglycemia Hypothyroidism -Continue daily medication regimen with levothyroxine 100 mcg daily. -TSH 1.200 Data and imaging reviewed: WBC 9.8, hemoglobin 7.9, potassium 3.4, creatinine 3.99, blood sugars range between 94-1 49, magnesium 1.8 CODE STATUS: DNR/DNI DVT prophylaxis: Subcu heparin Anticipated discharge date: Clinical course to determine Anticipated discharge place: Clinical course to determine Objective - Vital Signs Vital signs: Vital Signs Temp 98.7 F 01/10/24 08:00 Pulse 84 01/10/24 11:00 Resp 13 01/10/24 11:00 BP 123/75 01/10/24 11:00 Pulse Ox 98 01/10/24 11:00 FiO2 Intake & Output 01/09/24 01/10/24 01/10/24 18:59 06:59 18:59 Intake Total 375 900 300 Output Total 284 440 125 Balance 91 460 175 Weight 83.915 kg 60.6 kg Intake: IV 375 900 300 Sodium Chloride 0.9% 1, 375 900 300 000 ml @ 75 mls/hr IV . [id number] [facility] Rx#:[id number] Output: Urine 284 440 125 Other: Voiding Method Indwelling Catheter Indwelling Catheter Indwelling Catheter # Bowel Movements 1 - Labs CBC & Chem 7: 01/10/24 05:25 01/10/24 05:25 Labs: Abnormal Lab Results - Last 24 Hours (Table) 01/09/24 01/09/24 01/09/24 Range/Units 11:49 12:55 15:19 RBC (3.80-5.40) m/uL Hgb (11.4-16.0) gm/dL Hct (34.0-46.0) % RDW (11.5-15.5) % Sodium (137-145) mmol/L Potassium (3.5-5.1) mmol/L BUN (7-17) mg/dL Creatinine (0.52-1.04) mg/dL POC Glucose (mg/dL) 213 H 201 H (70-110) mg/dL Calcium (8.4-10.2) mg/dL CSF RBC 17 H (0-10) u/L CSF Glucose 107 H (40-70) mg/dL 01/09/24 01/09/24 01/10/24 Range/Units 17:11 19:35 05:25 RBC 2.92 L (3.80-5.40) m/uL Hgb 7.9 L (11.4-16.0) gm/dL Hct 24.8 L (34.0-46.0) % RDW 15.8 H (11.5-15.5) % Sodium (137-145) mmol/L Potassium (3.5-5.1) mmol/L BUN (7-17) mg/dL Creatinine (0.52-1.04) mg/dL POC Glucose (mg/dL) 149 H 133 H (70-110) mg/dL Calcium (8.4-10.2) mg/dL CSF RBC (0-10) u/L CSF Glucose (40-70) mg/dL 01/10/24 Range/Units 05:25 RBC (3.80-5.40) m/uL Hgb (11.4-16.0) gm/dL Hct (34.0-46.0) % RDW (11.5-15.5) % Sodium 136 L (137-145) mmol/L Potassium 3.4 L (3.5-5.1) mmol/L BUN 51 H (7-17) mg/dL Creatinine 3.99 H (0.52-1.04) mg/dL POC Glucose (mg/dL) (70-110) mg/dL Calcium 7.3 L (8.4-10.2) mg/dL CSF RBC (0-10) u/L CSF Glucose (40-70) mg/dL Microbiology - Last 24 Hours (Table) 01/09/24 15:19 CSF Gram Stain - Preliminary Cerebral Spinal Fluid 01/07/24 07:28 Blood Culture - Preliminary Blood 01/06/24 06:05 Blood Culture - Preliminary Blood
[2024-01-10 11:30] LABS: Glucose,Whole Blood 122 mg/dL (70-110)
--- NOTE | 2024-01-10 11:43 | P.PN ---
Subjective Progress Note Date: 01/10/24 Principal diagnosis: Reason for follow-up is MSSA bacteremia Patient is a 78-year-old female past medical history pertinent for diabetes mellitus hypertension hyperlipidemia dementia and depression brought into the hospital for evaluation of worsening dementia/confusion noticed to have positive UA and did have MSSA bacteremia also abnormality to the left humeral head on the x-ray. On today's visit that is 01/10/2024, the patient continues to be afebrile, the patient is on 2 L nasal cannula oxygen and breathing comfortably, the Pt denies having any chest pain or cough, the patient denies having any abdominal pain no vomiting or any diarrhea has been reported by the nursing staff,. Patient white count is 9.8, creatinine 3.99 patient did have LP glucose was 107 protein normal at 44 nucleated cells 1 Objective - Vital Signs Vital signs: Vital Signs Temp 98.7 F 01/10/24 08:00 Pulse 84 01/10/24 11:00 Resp 13 01/10/24 11:00 BP 123/75 01/10/24 11:00 Pulse Ox 98 01/10/24 11:00 FiO2 Intake & Output 01/09/24 01/10/24 01/10/24 18:59 06:59 18:59 Intake Total 375 900 300 Output Total 284 440 125 Balance 91 460 175 Weight 83.915 kg 60.6 kg Intake: IV 375 900 300 Sodium Chloride 0.9% 1, 375 900 300 000 ml @ 75 mls/hr IV . [id number] Rx#:[id number] Output: Urine 284 440 125 Other: Voiding Method Indwelling Catheter Indwelling Catheter Indwelling Catheter # Bowel Movements 1 - Exam GENERAL DESCRIPTION: An elderly female lying in bed in no distress RESPIRATORY SYSTEM: Unlabored breathing , decreased breath sounds at bases HEART: S1 S2 regular rate and rhythm , ABDOMEN: Soft , no tenderness EXTREMITIES: No edema feet - Labs CBC & Chem 7: 01/10/24 05:25 01/10/24 05:25 Labs: Abnormal Lab Results - Last 24 Hours (Table) 01/09/24 01/09/24 01/09/24 Range/Units 11:49 12:55 15:19 RBC (3.80-5.40) m/uL Hgb (11.4-16.0) gm/dL Hct (34.0-46.0) % RDW (11.5-15.5) % Sodium (137-145) mmol/L Potassium (3.5-5.1) mmol/L BUN (7-17) mg/dL Creatinine (0.52-1.04) mg/dL POC Glucose (mg/dL) 213 H 201 H (70-110) mg/dL Calcium (8.4-10.2) mg/dL CSF RBC 17 H (0-10) u/L CSF Glucose 107 H (40-70) mg/dL 01/09/24 01/09/24 01/10/24 Range/Units 17:11 19:35 05:25 RBC 2.92 L (3.80-5.40) m/uL Hgb 7.9 L (11.4-16.0) gm/dL Hct 24.8 L (34.0-46.0) % RDW 15.8 H (11.5-15.5) % Sodium (137-145) mmol/L Potassium (3.5-5.1) mmol/L BUN (7-17) mg/dL Creatinine (0.52-1.04) mg/dL POC Glucose (mg/dL) 149 H 133 H (70-110) mg/dL Calcium (8.4-10.2) mg/dL CSF RBC (0-10) u/L CSF Glucose (40-70) mg/dL 01/10/24 01/10/24 Range/Units 05:25 11:28 RBC (3.80-5.40) m/uL Hgb (11.4-16.0) gm/dL Hct (34.0-46.0) % RDW (11.5-15.5) % Sodium 136 L (137-145) mmol/L Potassium 3.4 L (3.5-5.1) mmol/L BUN 51 H (7-17) mg/dL Creatinine 3.99 H (0.52-1.04) mg/dL POC Glucose (mg/dL) 122 H (70-110) mg/dL Calcium 7.3 L (8.4-10.2) mg/dL CSF RBC (0-10) u/L CSF Glucose (40-70) mg/dL Microbiology - Last 24 Hours (Table) 01/09/24 15:19 CSF Gram Stain - Preliminary Cerebral Spinal Fluid 01/07/24 07:28 Blood Culture - Preliminary Blood 01/06/24 06:05 Blood Culture - Preliminary Blood Assessment and Plan (1) MSSA bacteremia Current Visit: Yes Status: Acute Code(s): R78.81 - BACTEREMIA; B95.61 - METHICILLIN SUSCEP STAPH INFCT CAUSING DIS CLASSD ELSWHR SNOMED Code(s): 664507475 Plan: 1-1patient is a 78-year-old female with multiple comorbidities pres enting to the hospital with confusion and mental status changes did have a low- grade fever elevated white count and now with evidence of MSSA bacteremia source is likely left shoulder which was large bony defect of the humeral head articular surface which was not seen on October 30, 2023 x-ray as currently no other obvious focus for this bacteremia, MRI of the left shoulder is currently pending 2-blood cultures repeated on 01/06/2024 as well as 01/07/2024 has been negative 3-patient is also growing ESBL E. coli in the urine however the patient denies urinary symptoms question of possible asymptomatic bacteriuria, the patient repeat urine cultures are negative, no need for antibiotics 4-patient to continue with cefazolin and will await for the MRI to be completed, hopefully this afternoon 5-patient did have seizure activity neurology is following the patient LP has been completed CSF finding is not suggestive of meningitis or encephalitis Dictation was produced using [employer] dictation software. please excuse any grammatical, word or spelling errors. Time with Patient: Less than 30
--- NOTE | 2024-01-10 13:33 | P.PN ---
Subjective Progress Note Date: 01/10/24 I am follow-up with the patient and no further seizure-like activity. I spoke with the primary team and he stated she is doing better compared to yesterday. I spoke with the and he stated she did have episode of staring off and followed-up with Dr. Stapleton and was told it was no concern per the . Objective - Vital Signs Vital signs: Vital Signs Temp 98.7 F 01/10/24 08:00 Pulse 85 01/10/24 12:00 Resp 12 01/10/24 12:00 BP 123/75 01/10/24 12:00 Pulse Ox 97 01/10/24 12:00 FiO2 Intake & Output 01/09/24 01/10/24 01/10/24 18:59 06:59 18:59 Intake Total 375 900 300 Output Total 284 440 125 Balance 91 460 175 Weight 83.915 kg 60.6 kg Intake: IV 375 900 300 Sodium Chloride 0.9% 1, 375 900 300 000 ml @ 75 mls/hr IV . [id number] [facility] Rx#:[id number] Output: Urine 284 440 125 Other: Voiding Method Indwelling Catheter Indwelling Catheter Indwelling Catheter # Bowel Movements 1 - Exam General: Lying in bed and is not in acute distress. Neuro: Limited. The patient is awake, alert, oriented to self only. She correctly stated her 's name. She correctly name few objects (pen and watch). She is somewhat slow responding. She is following some simple commands. Language is limited. Pupils are 3mm and reactive to light. No facial weakness. Sticking her tongue out. Motor: Strength is limited. Lifting right upper above gravity. Left upper extremity has edema. In lowers wiggling toes. Some of the work-up during this hospital visit consisted of: Tmax of 99.9F on 01/04/24 that resolved. wbc is normal. Creatinine is 3.96. Slightly trending down from the day prior. BUN is a 52 Glucose is 23 Calcium is 7.6 Magnesium is 1.9 Ammonia is less than 9 TSH is 1.20. Urine culture is positive for E. coli. Blood culture is staph aureus CT of the head on 2023 is reported as stable appearing patchy periventricular white matter ischemic type changes with atrophy. I personally reviewed the CT and I do not appreciate any acute or subacute changes. There is no bleed. 2D echo was reported as previous echo recorded on 10/31/2023. Normal left ventricular systolic function. CSF: Clear, colorless, red blood cell is 17, total nucleated cells 1, glucose is 107, total protein is 44. CSF gram stain is no organism seen. Routine EEG is abnormal. The background slowing suggestive of severe encephalopathy. The excessive beta activity is likely due to medication effect (Ativan). Otherwise there is no focal slowing, epileptiform discharges or seizure on the EEG. - Labs CBC & Chem 7: 01/10/24 05:25 01/10/24 05:25 Labs: Abnormal Lab Results - Last 24 Hours (Table) 01/09/24 01/09/24 01/09/24 Range/Units 15:19 17:11 19:35 RBC (3.80-5.40) m/uL Hgb (11.4-16.0) gm/dL Hct (34.0-46.0) % RDW (11.5-15.5) % Sodium (137-145) mmol/L Potassium (3.5-5.1) mmol/L BUN (7-17) mg/dL Creatinine (0.52-1.04) mg/dL POC Glucose (mg/dL) 149 H 133 H (70-110) mg/dL Calcium (8.4-10.2) mg/dL CSF RBC 17 H (0-10) u/L CSF Glucose 107 H (40-70) mg/dL 01/10/24 01/10/24 01/10/24 Range/Units 05:25 05:25 11:28 RBC 2.92 L (3.80-5.40) m/uL Hgb 7.9 L (11.4-16.0) gm/dL Hct 24.8 L (34.0-46.0) % RDW 15.8 H (11.5-15.5) % Sodium 136 L (137-145) mmol/L Potassium 3.4 L (3.5-5.1) mmol/L BUN 51 H (7-17) mg/dL Creatinine 3.99 H (0.52-1.04) mg/dL POC Glucose (mg/dL) 122 H (70-110) mg/dL Calcium 7.3 L (8.4-10.2) mg/dL CSF RBC (0-10) u/L CSF Glucose (40-70) mg/dL Microbiology - Last 24 Hours (Table) 01/09/24 15:19 CSF Gram Stain - Preliminary Cerebral Spinal Fluid 01/07/24 07:28 Blood Culture - Preliminary Blood 01/06/24 06:05 Blood Culture - Preliminary Blood Assessment and Plan Assessment: This is a 78-year-old woman who presents to the emergency department because of worsening confusion decreased appetite over the past few days. She has left shoulder fracture and history of pelvic fracture. The felt pelvic fracture was about 6 weeks ago. During his hospital visit she was found to be in MSSA bacterima and ESBL UTI. Today she had two seizures, in which she had left gaze fixation, eye twitching an GTC and first episode was <1 minute then second was 5minutes. She received 4mg Ativan. Per family members she has been having blank stares since 2022 and family member. Status epilepticus---resolved after 4mg Ativan. No further seizures. CSF study is negative. Her blanks stares since at least 09/2023 is likely due to seizure and her seizure are new onset. Her shoulder fracture and plevic fracture is likely due to seizures. Pelvic fracture was about 6 weeks ago Altered mental status due to multifactorial: Encephalopathy due to Seizure, medication (Ativan). Also component of septic encephalopathy and metabolic encephalopathy. Initial CT head is negative. Sepsis due to MSSA bacteremia and ESBL UTI FROILAN History of Alzheimer's dementia and baseline and oriented 12 Hypertension Hyperlipidemia Hypothyroidism Non-insulin diabetes mellitus Iron deficiency anemia Recurrent UTI Plan: Pending MRI Brain. Continue Vimpat 100mg bid (not Keppra since significant kidney insufficiency). She is on Ativan 2 mg IV every 6 hours when necessary for seizures Seizure precautions I spoke with the primary team and consider transesophageal echocardiogram if unknown source of infection. ID is on board We'll defer the rest of the medical management to primary and other specialists The plan discussed with the patient's who is at bedside and ICU nurse and primary team. Time with Patient: Less than 30
[2024-01-10] MEDS: HEPARIN SODIUM,PORCINE 5,000 UNIT/ML 1 ML VIAL SQ SCH (15:26)
--- NOTE | 2024-01-10 15:37 | P.PN ---
Subjective Progress Note Date: 01/10/24 Principal diagnosis: Right-sided superior and inferior pubic rami fractures chronic; left shoulder humeral head collapse likely AVN or neuropathic arthropathy; possible left shoul britton abscess Patient was seen at bedside this morning lying semirecumbent position was sling present to left upper extremity in ICU. History is difficult to obtain due to patient's medical state. Patient does mentions she is still having some left shoulder pain as she points the left shoulder, but says pain seems to be improving. Patient just returned from MRI of brain and left shoulder. ID and medicine concerned for infection in left shoulder as patient has MSSA bacteremia. Patient denies other issues at this time. Objective - Vital Signs Vital signs: Vital Signs Temp 98.7 F 01/10/24 08:00 Pulse 85 01/10/24 12:00 Resp 12 01/10/24 14:00 BP 123/75 01/10/24 12:00 Pulse Ox 97 01/10/24 12:00 FiO2 Intake & Output 01/09/24 01/10/24 01/10/24 18:59 06:59 18:59 Intake Total 375 900 525 Output Total 284 440 200 Balance 91 460 325 Weight 83.915 kg 60.6 kg Intake: IV 375 900 525 Sodium Chloride 0.9% 1, 375 900 525 000 ml @ 75 mls/hr IV . [id number] [facility] Rx#:[id number] Output: Urine 284 440 200 Other: Voiding Method Indwelling Catheter Indwelling Catheter Indwelling Catheter # Bowel Movements 1 - Exam inspection: negative for any open fractures, significant erythema/ecchymosis open wounds. Sling present to the left upper extremity. Sensation: equal, symmetric, bilaterally intact throughout the upper and lower extremities Palpation: moderate TTP over right posterior sacral region. fair amount TTP diffusely throughout right hip. Moderate tenderness to the patient diffusely around the left shoulder. Positive for tenderness of the palpation over the before meals joint and clavicle on the left. Range of motion: patient does have some limited range of motion in the right h ip and right knee in flexion/extension secondary to referred pain to the right hip. patient has full range of motion throughout right ankle on exam. Patient does have range of motion in the left upper extremity and the shoulder secondary to injury and pain. She does have full range of motion bilateral wrists in flexion/extension and elbows in flexion/extension. Motor: 4-/5 and resisted right knee flexion/extension and right hip flexion/extension. Left upper extremity shoulder motor exam not performed due to to injury and pain. 4/5 in resisted bilateral wrist flexion/extension. 4/5 in resisted right elbow flexion/extension. 4/5 in all major motor groups in left lower extremity. Neurovascular: radial pulses intact, 2+ bilaterally. Refill under 3 seconds in digits of UE Special tests: negative clonus bilaterally. log roll maneuver to the right does produce some pain To the right hip - Labs CBC & Chem 7: 01/10/24 05:25 01/10/24 05:25 Labs: Abnormal Lab Results - Last 24 Hours (Table) 01/09/24 01/09/24 01/09/24 Range/Units 15:19 17:11 19:35 RBC (3.80-5.40) m/uL Hgb (11.4-16.0) gm/dL Hct (34.0-46.0) % RDW (11.5-15.5) % Sodium (137-145) mmol/L Potassium (3.5-5.1) mmol/L BUN (7-17) mg/dL Creatinine (0.52-1.04) mg/dL POC Glucose (mg/dL) 149 H 133 H (70-110) mg/dL Calcium (8.4-10.2) mg/dL CSF RBC 17 H (0-10) u/L CSF Glucose 107 H (40-70) mg/dL 01/10/24 01/10/24 01/10/24 Range/Units 05:25 05:25 11:28 RBC 2.92 L (3.80-5.40) m/uL Hgb 7.9 L (11.4-16.0) gm/dL Hct 24.8 L (34.0-46.0) % RDW 15.8 H (11.5-15.5) % Sodium 136 L (137-145) mmol/L Potassium 3.4 L (3.5-5.1) mmol/L BUN 51 H (7-17) mg/dL Creatinine 3.99 H (0.52-1.04) mg/dL POC Glucose (mg/dL) 122 H (70-110) mg/dL Calcium 7.3 L (8.4-10.2) mg/dL CSF RBC (0-10) u/L CSF Glucose (40-70) mg/dL Microbiology - Last 24 Hours (Table) 01/09/24 15:19 CSF Gram Stain - Preliminary Cerebral Spinal Fluid 01/07/24 07:28 Blood Culture - Preliminary Blood 01/06/24 06:05 Blood Culture - Preliminary Blood Assessment and Plan Assessment: 1. Right-sided superior and inferior pubic rami fractures chronic; left shoulder humeral head collapse likely AVN or neuropathic arthropathy; possible left shoulder abscess 2. History of dementia and multiple medical comorbidities Plan: 1. Right-sided superior and inferior pubic rami fractures chronic; left cornelio ulder humeral head collapse likely AVN or neuropathic arthropathy; possible left shoulder abscess - x-ray of the left shoulder reviewed. X-ray of the left shoulder does demonstrate collapse of the humeral head likely AVN or neuropathic arthropathy. MRI left shoulder completed. Read from radiologist not in yet. Images reviewed with attending, Dr. Almonte. Fluid collection concern in the soft tissue surrounding the left shoulder. Pending report from radiologist, we are planning on surgical intervention tomorrow in the form of left shoulder I&D with possible antibiotic spacer placement. Patient to be nothing by mouth at midnight tonight. Withhold blood thinners at this time. Maintain sling to left upper extremity. We will continue to follow patient during stay in Hospital. 2. Appreciate medical, ID and other specialty recommendations 3. Pain management recs 4. GI prophylaxis - protonix 5. DVT prophylaxis - withhold blood thnners at this time. 6. PT/OT - patient may weight-bear as tolerated with bilateral lower extremities and uses a walker when up and about with assistance. Maintain left upper extremity in sling and to be nonweightbearing. Okay to perform gentle range of motion exercises of the left upper extremity as tolerated 7. Encourage incentive spirometer use Time with Patient: Less than 30
--- NOTE | 2024-01-10 15:49 | P.PN ---
Subjective Progress Note Date: 01/10/24 78-year-old female patient got transferred to the intensive care unit because of ongoing seizure activity and concerns for status epilepticus. The patient was hospitalized few days back with altered mentation and confusion. She apparently has history of dementia possible evidence status of his dementia and she has some baseline confusion. It was noted that her confusion was progressively getting worse and she also had diminished appetite also. In the emergency department, the patient was hemodynamically stable. Initial CAT scan of the brain was negative for any acute intracranial process and the patient had chronic appearing patchy periventricular white matter ischemic changes and atrophy. Chest x-ray was normal. X-ray of the left shoulder was done and the patient showed a large bony defect in the left humeral head articular space and the shoulder was quite swollen. This was suspected to be related to a traumatic injury. Pelvic x-ray showed also superior inferior pubic rami fracture on the right and subacute incomplete healed fractures and the superior pubic ramus was displaced by around 9 mm. Blood work showed leukocytosis with a white cell count of 19.3 with a hemoglobin of 7.4 and she has chronic baseline anemia. The patient also had a sodium level of 133 with a potassium level 5.4 and a chloride of 97 with a BUN of 63 and a creatinine of 2.9. Calcium was also elevated at 11.8. No significant abnormalities in liver function test. The viral screen was negative. UA was suggestive of an underlying infection and UTI was suspected. The patient also had some troponin leak. As such, the patient was admitted to the hospital for further workup and treatment. She was seen by nephrology and the patient demonstrated progressive worsening in renal function and the creatinine delfina from 2.9 up to 4.05 and this morning is at 3.96. The white cell count dropped down to 9.3. Hemoglobin has been stable at 8.4 from today. The urine culture was positive for E. coli and this was an ESBL producing microorganism in the blood culture was also positive for Staph aureus/MSSA and this was identified on 2 separate blood cultures. Infectious disease was consulted and the patient was placed on IV cefazolin. Based on the staphylococcal growth in the blood and the joint swelling in the left shoulder, there is a concern for septic arthritis. MRI of the left shoulder was ordered and orthopedic consultation was also requested. The CT scan of the abdomen and pelvis showed no acute intra-abdominal process without any obstructive uropathy or calculus. Subacute fractures of the right inferior and superior rami/pubic rami as well as the right sacrum was noted. This afternoon, the patient was noted to have eye twitching and gaze deviation to the left and seizure-like activity. Subsequently, in the morning, the patient continued to have left gaze deviation with eye twitching and seizure- like tonic-clonic seizure activity as reported by the nursing staff that lasted less than a minute. The patient continued to have recurrent seizures following that lasting up to 5 minutes with the left gaze deviation and generalized clonic activity. The patient had been given a total of 2 mg of IV Ativan during the first episode another 2 mg of Ativan during the second episode bringing her up to a total of 4 mg. She was loaded with Keppra 500 mg IV and dose adjustment wa s done based on the underlying renal failure. Noted the patient does not have any history of seizure activity or seizure disorder. She is currently afebrile. I was asked to move the patient to the intensive care unit for further monitoring. A repeat CAT scan of the brain was done and it showed atrophy with chronic appearing periventricular white matter ischemic changes and the findings were essentially stable. At this point in time, the patient is on 2 L of oxygen by nasal cannula. The patient remains on IV cefazolin. On today's evaluation of 01/10/2024, the patient is being seen for a follow-up. Her neurostatus is improved slightly compared to yesterday and the patient was able to answer some simple commands. No focal neurological deficits. No facial asymmetry. Pupils are equal reactive to light. Lumbar puncture was done yesterday and the patient has only 1 nucleated cell without any significant elevation in the CSF protein. Cultures are still negative. This is essentially negative LP . There is CSF RBC was 17. CSF glucose was 107. No neck stiffness. No further seizure activity and the patient is currently on Vimpat 100 mg IV every 12 hours. MRI of the brain is to be done today. EEG was completed and showed encephalopathy and there was no indication for an acute or ongoing seizure activity. The plan for now is to proceed with an MRI of the brain and the patient is also going to need an MRI of the shoulder with concerns of septic arthritis. Ultrasound Doppler of the left upper extremity was also done today. This was done essentially to rule out DVT and the results are still pending for now. The patient is afebrile. The patient is hemodynamically s table. Pulse ox is 99% on 2 L of oxygen by nasal cannula. Remains on normal saline at rate of 75 cc an hour. ID is on the case. The patient was growing ESBL producing E. coli in the urine however she did not have any urinary symptoms and the repeat urine cultures have been negative. Based on that, no further antibiotic coverage was recommended in that regard. Objective - Vital Signs Vital signs: Vital Signs Temp 98.7 F 01/10/24 08:00 Pulse 78 01/10/24 08:00 Resp 14 01/10/24 08:00 BP 150/66 01/10/24 08:00 Pulse Ox 98 01/10/24 08:00 FiO2 Intake & Output 01/09/24 01/10/24 01/10/24 18:59 06:59 18:59 Intake Total 375 900 150 Output Total 284 440 75 Balance 91 460 75 Weight 83.915 kg 60.6 kg Intake: IV 375 900 150 Sodium Chloride 0.9% 1, 375 900 150 000 ml @ 75 mls/hr IV . [id number] [facility] Rx#:[id number] Output: Urine 284 440 75 Other: Voiding Method Indwelling Catheter Indwelling Catheter # Bowel Movements 1 - Exam General: appears stated age.,, Comfortable the patient is currently on 2 L of oxygen by nasal cannula. Derm: Skin warm and dry, normal coloration for ethnicity. Head: Atraumatic, normocephalic and symmetric. Eyes: no lid lag, and anicteric sclera, EOMI Mouth: no lip lesions, mucus membranes moist Cardiovascular: regular rate and rhythm with normal S1S2, systolic murmur, positive posterior tibial pulses bilaterally, and cap refill < 2 seconds. Lungs: Respirations even, regular, and unlabored on room air. Lungs CTA bilaterally, no rhonchi, no rales, no wheezing, and no accessory muscle usage. Abdominal: soft, nontender to palpation, no guarding, no appreciable organomegaly Ext: Left upper extremity in a sling, left arm edema Neuro: Lethargic is more awake compared to yesterday. Able to move her arms and legs without any limitation. Generalized profound weakness in all 4 extremities. Pupils are equal reactive to light. No facial asymmetry. Positive cough and gag. Responding to simple commands and answering simple questions. Psych: Unable to assess - Labs CBC & Chem 7: 01/10/24 05:25 01/10/24 05:25 Labs: Abnormal Lab Results - Last 24 Hours (Table) 01/09/24 01/09/24 01/09/24 Range/Units 08:16 08:16 11:49 RBC 2.99 L (3.80-5.40) m/uL Hgb 8.4 L (11.4-16.0) gm/dL Hct 25.8 L (34.0-46.0) % RDW 16.0 H (11.5-15.5) % Sodium 134 L (137-145) mmol/L Potassium (3.5-5.1) mmol/L BUN 52 H (7-17) mg/dL Creatinine 3.96 H (0.52-1.04) mg/dL Glucose 203 H (74-99) mg/dL POC Glucose (mg/dL) 213 H (70-110) mg/dL Calcium 7.6 L (8.4-10.2) mg/dL CSF RBC (0-10) u/L CSF Glucose (40-70) mg/dL 01/09/24 01/09/24 01/09/24 Range/Units 12:55 15:19 17:11 RBC (3.80-5.40) m/uL Hgb (11.4-16.0) gm/dL Hct (34.0-46.0) % RDW (11.5-15.5) % Sodium (137-145) mmol/L Potassium (3.5-5.1) mmol/L BUN (7-17) mg/dL Creatinine (0.52-1.04) mg/dL Glucose (74-99) mg/dL POC Glucose (mg/dL) 201 H 149 H (70-110) mg/dL Calcium (8.4-10.2) mg/dL CSF RBC 17 H (0-10) u/L CSF Glucose 107 H (40-70) mg/dL 01/09/24 01/10/24 01/10/24 Range/Units 19:35 05:25 05:25 RBC 2.92 L (3.80-5.40) m/uL Hgb 7.9 L (11.4-16.0) gm/dL Hct 24.8 L (34.0-46.0) % RDW 15.8 H (11.5-15.5) % Sodium 136 L (137-145) mmol/L Potassium 3.4 L (3.5-5.1) mmol/L BUN 51 H (7-17) mg/dL Creatinine 3.99 H (0.52-1.04) mg/dL Glucose (74-99) mg/dL POC Glucose (mg/dL) 133 H (70-110) mg/dL Calcium 7.3 L (8.4-10.2) mg/dL CSF RBC (0-10) u/L CSF Glucose (40-70) mg/dL Microbiology - Last 24 Hours (Table) 01/09/24 15:19 CSF Gram Stain - Preliminary Cerebral Spinal Fluid 01/07/24 07:28 Blood Culture - Preliminary Blood 01/06/24 06:05 Blood Culture - Preliminary Blood Assessment and Plan Plan: New onset seizure with status epilepticus controlled on Vimpat and the patient has not had any seizure episodes over the past 24 hours. EEG showing encephalopathy without any ongoing seizure activity. MSSA bacteremia/sepsis currently on IV cefazolin, the patient has a swollen left shoulder. MRI of the shoulder is needed. Rule out septic arthritis involving the left shoulder. Left shoulder swelling, rule out septic arthritis. The patient has left humeral head collapse, consider AVN versus neuropathic arthropathy. Possibility of a septic arthritis cannot be ruled out. Fractures could be related to seizures and the patient is currently wearing a sling and orthopedic surgery is on the case. MRI of the shoulder is pending. X-ray of the shoulder showed new large bony defect in the humeral head along with some osseous density just below the surgical neck level of the humerus Pelvic fracture related to seizure/fall. Pelvic fracture was present approximately 6 weeks ago, and the patient has superior and inferior pubic rami fracture on the right Acute kidney injury, creatinine remains elevated at 3.9 Alzheimer's dementia Hypertension Hyperlipidemia Hypothyroidism [id number] diabetes mellitus Iron deficiency anemia History of recurrent urine tract infection most recent infections with E. coli Abnormal troponins, consider type II myocardial ischemia, echo of the heart shows a preserved LV function with a normal ejection fraction of 55 to 60% History of Parkinson's disease DNR/DNI CODE STATUS Plan Keep the patient in the intensive care unit Seizure precautions Continue Vimpat 100 mg IV twice daily Ativan as needed for breakthrough seizures EEG was noted and is consistent with encephalopathy Lumbar puncture, negative MRI of the brain, pending to be done today MRI of the shoulder, pending to be done today Orthopedic surgery evaluation in progress regarding the left shoulder/humeral head collapse IV cefazolin regarding MSSA bacteremia and the patient is being seen by infectious disease IV fluids normal saline at rate of 75 cc an hour Resume home medications and assess swallow Nephrology regarding the acute kidney injury, keep Rodriguez catheter in place, likely ATN knowing that the baseline creatinine was stable on 01/06/2024 and 0.9. No hydronephrosis. Avoid nephrotoxic agents. DNR/DNI CODE STATUS Condition is critical based on above-mentioned comorbidities. Will continue to follow. Will make further recommendations based on the results of the MRI of the brain and MRI of the left shoulder. Will follow Time with Patient: Greater than 30
[2024-01-10 16:53] LABS: Glucose,Whole Blood 102 mg/dL (70-110)
[2024-01-10 19:57] LABS: Glucose,Whole Blood 125 mg/dL (70-110)
--- NOTE | 2024-01-10 20:03 | MR ---
EXAMINATION TYPE: MR shoulder LT wo con DATE OF EXAM: 01/10/2024 COMPARISON: Radiograph 01/04/2024 and previous chest radiograph 12/31/2022 HISTORY: 78-year-old female Abnormal X-RAY, large bony defect of the humeral head of left arm, sepsis TECHNIQUE: Multiplanar, multisequence imaging of the left shoulder is performed without contrast. FINDINGS: The exam is severely limited due to diffuse patient motion. There is extensive soft tissue and osseous edema as well as joint effusion at the left glenohumeral j oint. Fluid loculations along the lateral deltoid shelf measuring up to 4.3 x 2.3 x 1.3 cm. Additional mild effusion and extensive edema in the subacromial/subdeltoid bursa. There is severe bone loss involving essentially the entire articular surface of the humeral head. Pos sible corresponding bony irregularity inferior glenoid though assessment is suboptimal due to the deg ree of patient motion. Edema tracks along the rotator cuff and deltoid musculature. Associated generalized anasarca unchange d. There is severe dependent opacities in the lungs or underlying pleural effusions. The AC joint appears to be intact. IMPRESSION: 1. Given the severe osseous, periarticular, and surrounding soft tissue edema, severe bone loss parti cularly of the articular surface of the humeral head, underlying joint and bursal effusions, as well as loculated fluid in the lateral deltoid shelf measuring up to 4.3 cm, a septic arthritis of the gle nohumeral joint should be excluded. 2. Generalized anasarca change and either extensive dependent opacities in the lungs versus moderate bilateral pleural effusions. Consider chest radiograph follow-up.
--- NOTE | 2024-01-10 20:15 | MR ---
EXAMINATION TYPE: MR brain wo con DATE OF EXAM: 01/10/2024 COMPARISON: None HISTORY: seizure CONTRAST: Performed utilizing 0 mL intravenous Gadobutrol gadolinium contrast. TECHNIQUE: Multiplanar, multiecho imaging on a 3.0 Shazia magnet is performed through the brain. Stud y is performed within 24 hours of arrival to the hospital. The craniovertebral junction is normal. The pituitary is normal. Diffusion-weighted imaging is performed. No abnormal hyperintensity is present to suggest an acute i ntracranial infarct or acute ischemic change. Patchy white matter hypodensity is present, likely on the basis of chronic white matter ischemic parry ges. Ventricles and sulci are prominent. for the patient age. IMPRESSION: 1. Atrophy with chronic appearing periventricular white matter ischemic changes. 2. No suspicious acute changes to account for seizure.
--- NOTE | 2024-01-10 20:29 | US ---
EXAMINATION TYPE: US venous doppler duplex UE LT DATE OF EXAM: 01/10/2024 COMPARISON: NONE CLINICAL INDICATION: Female, 78 years old with history of edema; edema, shoulder pain SIDE PERFORMED: left Left Arm: Negative for DVT as visualized exam limited by edema and patient limited mobility, distal brachial veins, cephalic and basilic veins not well visualized IMPRESSION: 1. Left upper extremity ultrasound negative for deep venous thrombosis. 2. There is some limitation on the exam.
[2024-01-11 06:03] LABS: Glucose,Whole Blood 129 mg/dL (70-110)
[2024-01-11 07:56] LABS: HGB 7.3 gm/dL (11.4-16.0); MCH 27.4 pg (25.0-35.0); MCV 85.6 fL (80.0-100.0); RBC 2.69 m/uL (3.80-5.40); RDW 16.1 % (11.5-15.5); WBC 9.2 k/uL (3.8-10.6)
[2024-01-11 07:57] LABS: Anisocytosis Slight; Basophils % (A) 0 %; Eosinophils # (A) 0.1 k/uL (0-0.7); Eosinophils % (A) 1 %; Hypochromasia Slight; Lymphocytes # (A) 1.4 k/uL (1.0-4.8); Lymphocytes % (A) 15 %; Monocytes # (A) 0.4 k/uL (0-1.0); Monocytes % (A) 4 %; Neutrophils # (A) 7.3 k/uL (1.3-7.7); Neutrophils % (A) 79 %; Platelet Count 257 k/uL (150-450)
[2024-01-11 08:21] LABS: African American GFR (CKD) 11 (>60 ml/min/1.73 sqM); Anion Gap 8 mmol/L; Blood Urea Nitrogen 49 mg/dL (7-17); Calcium 6.9 mg/dL (8.4-10.2); Carbon Dioxide 21 mmol/L (22-30); Chloride 109 mmol/L (98-107); Glucose 104 mg/dL (74-99); Magnesium 1.8 mg/dL (1.6-2.3); Non-African American GFR(CKD) 10 (>60 ml/min/1.73 sqM); Potassium 3.8 mmol/L (3.5-5.1); Sodium 138 mmol/L (137-145)
--- NOTE | 2024-01-11 10:38 | P.PN ---
Subjective Patient is seen in follow-up for acute kidney injury. Renal function fairly stable. Nonoliguric. Has Rodriguez catheter. Receiving IV fluids. Poor historian. Vital signs are stable. General: Resting in bed. HEENT: Head exam is unremarkable. LUNGS: No audible rhonchi or wheezes. HEART: Rate and Rhythm are regular. ABDOMEN: Nontender. EXTREMITITES: No edema. Objective - Vital Signs Vital signs: Vital Signs Temp 98.1 F 01/10/24 20:00 Pulse 86 01/11/24 04:00 Resp 17 01/11/24 04:00 BP 160/74 01/11/24 04:00 Pulse Ox 99 01/11/24 04:00 FiO2 Intake & Output 01/10/24 01/11/24 01/11/24 18:59 06:59 18:59 Intake Total 850 Output Total 290 300 Balance 560 -300 Intake: IV 850 Sodium Chloride 0.9% 1, 850 000 ml @ 75 mls/hr IV . [id number] [facility] Rx#:[id number] Output: Urine 290 300 Other: Voiding Method Indwelling Catheter Indwelling Catheter - Labs CBC & Chem 7: 01/11/24 07:11 01/11/24 07:11 Labs: Abnormal Lab Results - Last 24 Hours (Table) 01/10/24 01/10/24 01/11/24 Range/Units 11: 19:55 06:01 RBC (3.80-5.40) m/uL Hgb (11.4-16.0) gm/dL Hct (34.0-46.0) % RDW (11.5-15.5) % Chloride (98-107) mmol/L Carbon Dioxide (22-30) mmol/L BUN (7-17) mg/dL Creatinine (0.52-1.04) mg/dL Glucose (74-99) mg/dL POC Glucose (mg/dL) 122 H 125 H 129 H (70-110) mg/dL Calcium (8.4-10.2) mg/dL 01/11/24 01/11/24 Range/Units 07:11 07:11 RBC 2.69 L (3.80-5.40) m/uL Hgb 7.3 L (11.4-16.0) gm/dL Hct 23.0 L (34.0-46.0) % RDW 16.1 H (11.5-15.5) % Chloride 109 H (98-107) mmol/L Carbon Dioxide 21 L (22-30) mmol/L BUN 49 H (7-17) mg/dL Creatinine 4.06 H (0.52-1.04) mg/dL Glucose 104 H (74-99) mg/dL POC Glucose (mg/dL) (70-110) mg/dL Calcium 6.9 L (8.4-10.2) mg/dL Microbiology - Last 24 Hours (Table) 01/09/24 15:19 CSF Gram Stain - Preliminary Cerebral Spinal Fluid CSF Culture - Preliminary 01/07/24 07:28 Blood Culture - Preliminary Blood Assessment and Plan Plan: Assessment: 1. Acute kidney injury secondary to ATN secondary to severe sepsis. Creatinine 0.9 dated December 06, 2023. Renal function stable. Creatinine 4.06 today. No hydronephrosis noted on kidney ultrasound/CT. 2. Severe sepsis secondary to Staph aureus bacteremia and E. coli UTI on antibiotics. Also concern for septic arthritis and left shoulder. Scheduled for I&D with possible antibiotic spacer placement today. 3. Metabolic acidosis secondary to acute kidney injury on IV fluids. Status post bicarb drip. 4. Acute blood loss anemia status post blood transfusion this admission. Hemoglobin 7.3. 5. Benign hypertension. Stable. 6. Seizure-like activity. Neurology following. Status post LP, CAT scan and EEG. 7. Hypokalemia from poor intake. Replaced. Better. Plan: Maintain normal saline. Maintain Rodriguez catheter. Strict I's and O's. Avoid nephrotoxins. Continue to monitor renal function and urine output. Avoid IV iron in the setting of acute infection. Add Aranesp. Add oral bicarb.
[2024-01-11 11:55] LABS: Glucose,Whole Blood 140 mg/dL (70-110)
--- NOTE | 2024-01-11 11:57 | P.PN ---
Subjective Progress Note Date: 01/11/24 I am following-up with patient and she is accompanied by her [id number] and patient is feeling well. No further seizures. Objective - Vital Signs Vital signs: Vital Signs Temp 98.1 F 01/10/24 20:00 Pulse 86 01/11/24 04:00 Resp 17 01/11/24 04:00 BP 160/74 01/11/24 04:00 Pulse Ox 99 01/11/24 04:00 FiO2 Intake & Output 01/10/24 01/11/24 01/11/24 18:59 06:59 18:59 Intake Total 850 Output Total 290 300 Balance 560 -300 Intake: IV 850 Sodium Chloride 0.9% 1, 850 000 ml @ 75 mls/hr IV . [id number] [facility] Rx#:[id number] Output: Urine 290 300 Other: Voiding Method Indwelling Catheter Indwelling Catheter - Exam General: Lying in bed and is not in acute distress. Neuro: Limited. The patient is awake, alert, oriented to self only. She correctly stated her qiyaby-af-tce's name. She is following some simple commands. Language is limited. Pupils are 3mm and reactive to light. No facial weakness. Sticking her tongue out. Motor: Strength is limited. Lifting right upper above gravity. Left upper e xtremity has edema. In lowers wiggling toes. Some of the work-up during this hospital visit consisted of: Tmax of 99.9F on 01/04/24 that resolved. wbc is normal. Creatinine is 3.96. Slightly trending down from the day prior. BUN is a 52 Glucose is 23 Calcium is 7.6 Magnesium is 1.9 Ammonia is less than 9 TSH is 1.20. Urine culture is positive for E. coli. Blood culture is staph aureus CT of the head on -2023 is reported as stable appearing patchy periventricular white matter ischemic type changes with atrophy. I personally reviewed the CT and I do not appreciate any acute or subacute changes. There is no bleed. 2D echo was reported as previous echo recorded on 10/31/2023. Normal left ventricular systolic function. CSF: Clear, colorless, red blood cell is 17, total nucleated cells 1, glucose is 107, total protein is 44. CSF gram stain is no organism seen. Routine EEG is abnormal. The background slowing suggestive of severe encephalopathy. The excessive beta activity is likely due to medication effect (Ativan). Otherwise there is no focal slowing, epileptiform discharges or seizure on the EEG. MRI Brain w/o: It is reported as atrophy with chronic appearing periventricular white matter ischemic changes. No suspicious acute changes to account for seizure. I personally reviewed the MRI and there is a limitation because of motion artifact. But I agree there is no acute or subacute the changes - Labs CBC & Chem 7: 01/11/24 07:11 01/11/24 07:11 Labs: Abnormal Lab Results - Last 24 Hours (Table) 01/10/24 01/11/24 01/11/24 Range/Units 19:55 06:01 07:11 RBC 2.69 L (3.80-5.40) m/uL Hgb 7.3 L (11.4-16.0) gm/dL Hct 23.0 L (34.0-46.0) % RDW 16.1 H (11.5-15.5) % Chloride (98-107) mmol/L Carbon Dioxide (22-30) mmol/L BUN (7-17) mg/dL Creatinine (0.52-1.04) mg/dL Glucose (74-99) mg/dL POC Glucose (mg/dL) 125 H 129 H (70-110) mg/dL Calcium (8.4-10.2) mg/dL 01/11/24 Range/Units 07:11 RBC (3.80-5.40) m/uL Hgb (11.4-16.0) gm/dL Hct (34.0-46.0) % RDW (11.5-15.5) % Chloride 109 H (98-107) mmol/L Carbon Dioxide 21 L (22-30) mmol/L BUN 49 H (7-17) mg/dL Creatinine 4.06 H (0.52-1.04) mg/dL Glucose 104 H (74-99) mg/dL POC Glucose (mg/dL) (70-110) mg/dL Calcium 6.9 L (8.4-10.2) mg/dL Microbiology - Last 24 Hours (Table) 01/09/24 15:19 CSF Gram Stain - Preliminary Cerebral Spinal Fluid CSF Culture - Preliminary 01/07/24 07:28 Blood Culture - Preliminary Blood Assessment and Plan Assessment: This is a 78-year-old woman who presents to the emergency department because of worsening confusion decreased appetite over the past few days. She has left shoulder fracture and history of pelvic fracture. The felt pelvic fracture was about 6 weeks ago. During his hospital visit she was found to be in MSSA bacterima and ESBL UTI. Today she had two seizures, in which she had left gaze fixation, eye twitching an GTC and first episode was <1 minute then second was 5 minutes. She received 4mg Ativan. Per family members she has been having blank stares since 2022 and family member. Status epilepticus---resolved after 4mg Ativan. No further seizures. CSF study is negative. MRI Brain is negative for acute process. Her blanks stares since at least 09/2023 is likely due to seizure and her seizure are new onset. Her shoulder fracture and plevic fracture is likely due to seizures. Pelvic fracture was about 6 weeks ago Altered mental status due to multifactorial: Encephalopathy due to Seizure, medication (Ativan). Also component of septic encephalopathy and metabolic encephalopathy. Initial CT head is negative. Sepsis due to MSSA bacteremia and ESBL UTI FROILAN History of Alzheimer's dementia and baseline and oriented 1-2 Reported history of Parkinson's disease (per family that were notified by outpatient neurologist) Hypertension Hyperlipidemia Hypothyroidism Non-insulin diabetes mellitus Iron deficiency anemia Recurrent UTI Plan: Continue Vimpat 100mg bid (not Keppra since significant kidney insufficiency). I will change from IV to PO. She is on Ativan 2 mg IV every 6 hours when necessary for seizures Seizure precautions I spoke with the primary team and consider transesophageal echocardiogram if unk nown source of infection. ID is on board Per [place] DMV because of seizure, avoid driving for 6 month unless seizure free, avoid height, swim unassisted or use heavy machinery. We'll defer the rest of the medical management to primary and other specialists Upon discharge, patient needs to follow-up with neurologist as outpatient within 1-2 weeks. The plan discussed with the patient's [id number]-ul-svf who is at bedside and primary team. There is no further neurological work-up. Will sign off. Please reconsult if needed. Time with Patient: Less than 30
--- NOTE | 2024-01-11 12:20 | P.PN ---
Subjective Progress Note Date: 01/11/24 Principal diagnosis: Reason for follow-up is MSSA bacteremia Patient is a 78-year-old female past medical history pertinent for diabetes mellitus hypertension hyperlipidemia dementia and depression brought into the hospital for evaluation of worsening dementia/confusion noticed to have positive UA and did have MSSA bacteremia also abnormality to the left humeral head on the x-ray. On today's visit that is 01/11/2024, Patient is afebrile patient is currently on 2 L nasal cannula oxygen and denies having any shortness of breath, the patient denies any chest pain or cough, the patient denies any nausea vomiting did not have any abdominal pain and no diarrhea, denies any worsening pain to the left shoulder area. The patient white count is 9.2, creatinine is 4.06 blood culture repeat negative MRI of the shoulder suspicious for septic arthritis of the glenohumeral joint Objective - Vital Signs Vital signs: Vital Signs Temp 98.1 F 01/10/24 20:00 Pulse 86 01/11/24 04:00 Resp 17 01/11/24 04:00 BP 160/74 01/11/24 04:00 Pulse Ox 99 01/11/24 04:00 FiO2 Intake & Output 01/10/24 01/11/24 01/11/24 18:59 06:59 18:59 Intake Total 850 Output Total 290 300 225 Balance 560 -300 -225 Intake: IV 850 Sodium Chloride 0.9% 1, 850 000 ml @ 75 mls/hr IV . [id number] [facility] Rx#:[id number] Output: Urine 290 300 225 Other: Voiding Method Indwelling Catheter Indwelling Catheter - Exam GENERAL DESCRIPTION: An elderly female lying in bed in no distress RESPIRATORY SYSTEM: Unlabored breathing , decreased breath sounds at bases HEART: S1 S2 regular rate and rhythm , ABDOMEN: Soft , no tenderness EXTREMITIES: No edema feet - Labs CBC & Chem 7: 01/11/24 07:11 01/11/24 07:11 Labs: Abnormal Lab Results - Last 24 Hours (Table) 01/10/24 01/11/24 01/11/24 Range/Units 19:55 06:01 07:11 RBC 2.69 L (3.80-5.40) m/uL Hgb 7.3 L (11.4-16.0) gm/dL Hct 23.0 L (34.0-46.0) % RDW 16.1 H (11.5-15.5) % Chloride (98-107) mmol/L Carbon Dioxide (22-30) mmol/L BUN (7-17) mg/dL Creatinine (0.52-1.04) mg/dL Glucose (74-99) mg/dL POC Glucose (mg/dL) 125 H 129 H (70-110) mg/dL Calcium (8.4-10.2) mg/dL 01/11/24 01/11/24 Range/Units 07:11 11:53 RBC (3.80-5.40) m/uL Hgb (11.4-16.0) gm/dL Hct (34.0-46.0) % RDW (11.5-15.5) % Chloride 109 H (98-107) mmol/L Carbon Dioxide 21 L (22-30) mmol/L BUN 49 H (7-17) mg/dL Creatinine 4.06 H (0.52-1.04) mg/dL Glucose 104 H (74-99) mg/dL POC Glucose (mg/dL) 140 H (70-110) mg/dL Calcium 6.9 L (8.4-10.2) mg/dL Microbiology - Last 24 Hours (Table) 01/09/24 15:19 CSF Gram Stain - Preliminary Cerebral Spinal Fluid CSF Culture - Preliminary 01/07/24 07:28 Blood Culture - Preliminary Blood Assessment and Plan (1) MSSA bacteremia Current Visit: Yes Status: Acute Code(s): R78.81 - BACTEREMIA; B95.61 - METHICILLIN SUSCEP STAPH INFCT CA[facility]ING [facility] Code(s): 492342870 Plan: 1-1patient is a 78-year-old female with multiple comorbidities presenting to the hospital with confusion and mental status changes did have a low-grade fever elevated white count and now with evidence of MSSA bacteremia source is likely left shoulder which was large bony defect of the humeral head articular surface which was not seen on October 30, 2023 x-ray as currently no other obvious focus for this bacteremia, MRI of the left shoulder is currently pending 2-blood cultures repeated on 01/06/2024 as well as 01/07/2024 has been negative 3-patient is also growing ESBL E. coli in the urine however the patient denies urinary symptoms question of possible asymptomatic bacteriuria, the patient repeat urine cultures are negative, no need for antibiotics 4-patient MRI suspicious for septic arthritis of the glenohumeral joint on the left side patient is scheduled for surgery this afternoon we will continue the patient on cefazolin Family at the bedside question answered Dictation was produced using Track[employer] dictation software. please excuse any grammatical, word or spelling errors. Time with Patient: Less than 30
--- NOTE | 2024-01-11 12:24 | CDI ---
Documentation Clarification Form Date: 01/11/2024 11:31:09 AM From: Abby Gutierrez RN,CCDS Phone: [phone] Admit Date: 01/04/2024 11:07:00 AM Patient Name: Joan Granados Visit Number: [id number] Discharge Date: ATTENTION: The Clinical Documentation Specialists (CDI) and [facility] Coding Staff appreciate your assistance in clarifying documentation. Please respond to the clarification below the line at the bottom and electronically sign. The CDI & [facility] Coding staff will review the response and follow-up if needed. Please note: Queries are made part of the Legal Health Record. If you have any questions, please contact the author of this message via ITS. Dr. Serge Rijoas Conflicting documentation has been found in the medical record. As attending physician, please provide clarification. 01/10 Attending progress notes: MSSA bacteremia, unclear source. UTI unlikely 01/08 Query response: Sepsis present on admission 01/10 Ortho progress notes: Right-sided superior and inferior pubic rami fractures chronic; left shoulder humeral head collapse likely AVN or neuropathic arthropathy; possible left shoulder abscess. 01/10 Nephro progress notes: Severe sepsis secondary to Staph aureus bacteremia and E. coli UTI on antibiotics. Also concern for septic arthritis and left shoulder. 01/10 ID: Patient is a 78-year-old female with multiple comorbidities presenting to the hospital with confusion and mental status changes did have a low-grade fever elevated white count and now with evidence of MSSA bacteremia source is likely left shoulder which was large bony defect of the humeral head. History/Risk Factors: diabetes mellitus hypertension hyperlipidemia dementia Clinical Indicators: 78-year-old female worsening dementia/confusion noticed to have positive UA and did have MSSA bacteremia also abnormality to the left humeral head on the x-ray. 01/04 VS 132/63 96 20 100% RA, Temp 99.6 (Temp Max 99.9) WBC 19.3, Neutrophils 18.0 Ba+ 133 BUN 62 CR 2.93 UA: Ur Leukocyte Esterase Moderate Urine WBC 69 Lactic acid: 1.3 01/04 Blood cultures: Staphylococcus aureus 01/04 Urine Culture Escherichia coli Treatment: Cefazolin 1 GM IVPB Q 24 HRS 01/08 -01/08 Cefazolin 2 gm IVPB Q 12 01/06-12/18 Rocephin 2 GM IVPB Q 24 HRS 01/04-01/06 .9 NS @ 75 MLS/HR 01/05-01/08 Please clarify which diagnosis is most appropriate: [ x ] MSSA bacteremia with Sepsis POA, possible abscess due to left shoulder [ ] MSSA bacteremia with Sepsis POA, unknown source [ ] Other (please specify) [ ] Unable to determine (Template Last Revised: January 2021) MTDD
[2024-01-11] MEDS: IV FLUID CONTINUATION 1,000 ML IV ONE (12:37)
[2024-01-11 12:45] LABS: Glucose,Whole Blood 136 mg/dL (70-110)
[2024-01-11] MEDS ORDERED: ONDANSETRON 4 MG/2 ML VIAL ONE (12:52)
[2024-01-11] MEDS: DEXAMETHASONE SOD PHOSPHATE 4 MG/ML 1 ML VIAL IVP ONE (13:05)
[2024-01-11] MEDS: ONDANSETRON 4 MG/2 ML VIAL IVP ONE (13:05)
[2024-01-11] MEDS ORDERED: fentaNYL (PF) 50 MCG/ML 2 ML AMP ONE (13:20)
[2024-01-11] MEDS ORDERED: LIDOCAINE 1% INJ 10MG/ML (20 ML MDV) ONE (13:20)
[2024-01-11] MEDS ORDERED: GLYCOPYRROLATE 0.2 MG/ML 2 ML VIAL ONE (13:20)
[2024-01-11] MEDS ORDERED: ROCURONIUM 10 MG/ML (5 ML VIAL) IV ONE (13:20)
[2024-01-11] MEDS ORDERED: PROPOFOL 10 MG/ML 20 ML VIAL IV ONE (13:20)
[2024-01-11] MEDS ORDERED: ePHEDrine 50 MG/ML 1 ML VIAL ONE (13:20)
[2024-01-11] MEDS ORDERED: PHENYLEPHRINE 10 MG/ML VIAL ONE (13:20)
[2024-01-11] MEDS ORDERED: SUCCINYLCHOLINE CHLORIDE 200 MG/10 ML VIAL IV ONE (13:20)
[2024-01-11] MEDS ORDERED: NEOSTIGMINE 1 MG/ML 10 ML VIAL ONE (13:20)
--- NOTE | 2024-01-11 13:38 | P.PN ---
Subjective Progress Note Date: 01/11/24 Hospital course: Patient is a very pleasant 78-year-old female with a past medical history of Alzheimer's dementia with baseline mentation alert and oriented x 1-2, hypertension, hyperlipidemia, hypothyroidism, [id number] diabetes mellitus, iron deficiency anemia, recurrent UTIs, and history of prior pelvic fracture with chronic pelvic pain. She presented to the emergency department with a chief complaint of worsening confusion. Patient's reports that his is normally confused but he has noticed worsening confusion and a decreased appetite over the past few days. She underwent full evaluation in the emergency department. Vital signs upon arrival show blood pressure 132/63, heart rate 96, respiratory rate 20, temp 99.6 F, and SpO2 of 100% on room air. EKG completed showing normal sinus rhythm at 98 bpm with no significant T wave or ST abnormalities showing no signs of acute ischemia upon personal review and interpretation. CT brain completed and negative for acute intracranial process with radiology report stating stable chronic appearing patchy periventricular white matter ischemic changes with atrophy. Chest x-ray completed and was negative for acute cardiopulmonary process. X-ray left shoulder completed showing large bony defect in the humeral head articular surface. Pelvis x-ray completed showing known superior and inferior pubic rami fracture on the right reporting these as subacute incompletely healed fractures but reporting the superior pubic ramus fracture has displaced now by 9 mm versus 3 mm previously. Labs were completed and reviewed. CBC showing leukocytosis with a WBC count of 19.3 and hemoglobin of 7.4 (with a baseline hemoglobin of around 7.5). BMP showing hyponatremia with sodium of 133, hyperkalemia with potassium of 5.4, hypochloremia with chloride of 97, and an acute kidney injury with BUN of 62, creatinine 2.93, and GFR of 15 with baseline creatinine of 0.9. Calcium high at 11.8. Liver profile showing no significant abnormalities with the exception of low albumin of 2.9. Initial troponin elevated at 0.251. Urinalysis positive for protein, ketones, blood, leukocyte esterase, greater than 182 RBCs, and 69 WBCs. Influenza A, influenza B, COVID, and RSV were negative. Patient was admitted under our services with consultation to cardiology, nephrology and orthopedic surgery. Troponins trended overnight resulting at 0.251, 0.432, and 0.505. Orthopedic surgery evaluated, recommending conservative measures with use of sling to left upper extremity. Orthopedic team also recommending patient may perform gentle range of motion exercises of left upper extremity as tolerated, remain nonweightbearing to left upper extremity and in regards to pubic rami fracture patient may be weightbearing as tolerated and ambulate with walker with assistance. Renal function continues to worsen. Nephrology also consulted. Patient also found to have MSSA bacteremia. ID also consulted. Currently on IV antibiotics. Source unclear. On 01/09/2024 patient had status epilepticus, did resolve with IV Ativan and IV Keppra. Neurology consulted. Patient transferred to medical ICU. Pending MRI brain and left shoulder Subjective: Patient seen and examined at bedside. No acute events overnight. No seizure- like activity noted. Rodriguez catheter in place. Making urine. Physical exam: Vital signs reviewed and stable. General: appears stated age., Somnolent Derm: Skin warm and dry, normal coloration for ethnicity. Head: Atraumatic, normocephalic and symmetric. Eyes: no lid lag, and anicteric sclera, EOMI Mouth: no lip lesions, mucus membranes moist Cardiovascular: regular rate and rhythm with normal S1S2, systolic murmur, positive posterior tibial pulses bilaterally, and cap refill < 2 seconds. Lungs: Respirations even, regular, and unlabored on room air. Lungs CTA bilaterally, no rhonchi, no rales, no wheezing, and no accessory muscle usage. Abdominal: soft, nontender to palpation, no guarding, no appreciable organomegaly Ext: Left upper extremity in a sling, left arm edema Neuro: Somnolent, response to pain stimuli Psych: Unable to assess Assessment and Plan of Care: Patient is severely ill, needs close monitoring. Prognosis guarded. MSSA bacteremia Left shoulder septic arthritis UTI unlikely Acute kidney injury with oliguria, stable Acute on chronic Iron Deficiency anemia, status post 1 unit of PRBCs Hyperkalemia, resolved Hypokalemia, resolved -Left shoulder likely source based on MRI, Ortho consulted, pending interventions -Nephrology note reviewed, elevated double voiding and oral sodium bicarb, continue normal saline at 75 cc an hour, strict I's and O's, maintain Rodriguez cat heter, avoid IV iron -Hemoglobin stable, no active bleeding -ID note reviewed, continue IV cefazolin 1 g every 24 hours -Repeat blood cultures no growth to date -Echocardiogram does not show any valvular vegetation -Patient to remain on continuous telemetry monitoring. -Continue ferrous sulfate 325 mg daily, and ascorbic acid, hold off IV iron Status post Status epilepticus Discussed management with neurology, continue oral Vimpat 100 twice daily IV Ativan 2 mg every 6 hours as needed for seizures Seizure precautions Elevated troponins, type II NSTEMI -Chest pain-free, cardiology signed off -Continue aspirin 81 mg daily and atorvastatin 40 mg daily. -Patient to remain on continuous telemetry monitoring Acute metabolic encephalopathy, possibly in the setting of seizures Alzheimer's dementia Parkinson's disease -Continue daily medication regimen with carbidopa levodopa 25/100 mg tablets 4 times daily. Left shoulder and pelvic pain Right-sided superior and inferior pubic rami fractures, chronic Left shoulder humeral head collapse -Fractures possibly in the setting of seizures -Orthopedic surgery consulted, recommending conservative measures with use of sling to left upper extremity. Orthopedic team also recommending patient may perform gentle range of motion exercises of left upper extremity as tolerated, remain nonweightbearing to left upper extremity and in regards to pubic rami fracture patient may be weightbearing as tolerated and ambulate with walker with assistance. -Left upper extremity Doppler negative DVT Type II non-insulin dependent diabetes mellitus -Continue to hold metformin -Continue sliding scale insulin, monitor for hypoglycemia Hypothyroidism -Continue daily medication regimen with levothyroxine 100 mcg daily. -TSH 1.200 Data and imaging reviewed: WBC 9.2, hemoglobin 7.3, creatinine 4.06, blood sugars range between 10 4-1 40 Brain MRI did not show any acute process Shoulder MRI showed loculated fluid measuring up to 4.3 cm concerning for septic arthritis CODE STATUS: DNR/DNI DVT prophylaxis: Subcu heparin Anticipated discharge date: Clinical course to determine Anticipated discharge place: Clinical course to determine Objective - Vital Signs Vital signs: Vital Signs Temp 98.8 F 01/11/24 12:40 Pulse 86 01/11/24 12:40 Resp 16 01/11/24 12:40 BP 160/70 01/11/24 12:40 Pulse Ox 93 L 01/11/24 12:40 FiO2 Intake & Output 01/10/24 01/11/24 01/11/24 18:59 06:59 18:59 Intake Total 850 100 Output Total 290 300 225 Balance 560 -300 -125 Weight 60.6 kg Intake: IV 850 100 Sodium Chloride 0.9% 1, 850 000 ml @ 75 mls/hr IV . [id number] [facility] Rx#:[id number] Output: Urine 290 300 225 Other: Voiding Method Indwelling Catheter Indwelling Catheter Indwelling Catheter - Labs CBC & Chem 7: 01/11/24 07:11 01/11/24 07:11 Labs: Abnormal Lab Results - Last 24 Hours (Table) 01/10/24 01/11/24 01/11/24 Range/Units 19:55 06:01 07:11 RBC 2.69 L (3.80-5.40) m/uL Hgb 7.3 L (11.4-16.0) gm/dL Hct 23.0 L (34.0-46.0) % RDW 16.1 H (11.5-15.5) % Chloride (98-107) mmol/L Carbon Dioxide (22-30) mmol/L BUN (7-17) mg/dL Creatinine (0.52-1.04) mg/dL Glucose (74-99) mg/dL POC Glucose (mg/dL) 125 H 129 H (70-110) mg/dL Calcium (8.4-10.2) mg/dL 01/11/24 01/11/24 01/11/24 Range/Units 07:11 11:53 12:44 RBC (3.80-5.40) m/uL Hgb (11.4-16.0) gm/dL Hct (34.0-46.0) % RDW (11.5-15.5) % Chloride 109 H (98-107) mmol/L Carbon Dioxide 21 L (22-30) mmol/L BUN 49 H (7-17) mg/dL Creatinine 4.06 H (0.52-1.04) mg/dL Glucose 104 H (74-99) mg/dL POC Glucose (mg/dL) 140 H 136 H (70-110) mg/dL Calcium 6.9 L (8.4-10.2) mg/dL Microbiology - Last 24 Hours (Table) 01/06/24 06:05 Blood Culture - Final Blood 01/09/24 15:19 CSF Gram Stain - Preliminary Cerebral Spinal Fluid CSF Culture - Preliminary 01/07/24 07:28 Blood Culture - Preliminary Blood
[2024-01-11] MEDS: ceFAZolin 3,000 MG in SODIUM CHLORIDE 0.9% IRRIGATIO 3,000 ML IRRIGATION ONE (13:52)
--- NOTE | 2024-01-11 14:42 | P.OP ---
Date of Procedure: 01/11/24 Preoperative Diagnosis: Left glenohumeral joint septic arthritis/subdeltoid abscess Postoperative Diagnosis: Same Procedure(s) Performed: Arthrotomy left shoulder/irrigation and debridement/incision and drainage left septic shoulder Anesthesia: DANICA Surgeon: Marcellus Almonte Acid Tank Liner #1: Darek Richardson Estimated Blood Loss (ml): 50 Pathology: other (Gram stain and cultures) Condition: stable Disposition: PACU Indications for Procedure: The patient is a 78-year-old female with multiple medical comorbidities who presents with fever of unknown origin and subsequently was determined to have a septic left glenohumeral joint. A discussion of the risks and benefits of operative intervention was made with her . Specific risks of surgery to include persistence of infection and need for subsequent procedures was discussed. Informed consent was obtained. Operative Findings: As below Description of Procedure: The patient was brought to the operating room, and after induction of general anesthesia was placed in the beachchair position. The left upper extremity was prepped and draped in normal fashion. A deltopectoral incision was then made just lateral to the coracoid process extending approximately 10 cm. Skin and subcu tissues were divided sharply. Electrocautery was used for hemostasis. The deltopectoral interval was identified and cephalic vein was gently retracted laterally with the deltoid. Subdeltoid adhesions were then bluntly dissected. Significant purulence was noted. Deep cultures were obtained. The bicipital groove was opened. This was noted to be vacant of the biceps. The rotator interval was opened. The subscapularis was released off the lesser tuberosity sharply. The underlying capsule was released exposing the glenohumeral joint. Significant joint destruction involving the humeral head was noted. The bone was debrided with a ronguer. Thickened synovial tissue was excised sharply with a scalpel. The glenoid was inspected. The joint was then copiously irrigated with pulsatile lavage. The subdeltoid space was also irrigated copiously. It was elected not to proceed with repair of the subscapularis at this point. A deep drain was then placed into the glenohumeral joint. The subcutaneous tissues were loosely reapproximated with simple 2-0 Vicryl suture. The skin was reapproximated with a subcuticular 3-0 Prolene suture. Steri-Strips were applied. A sterile dressing was applied in addition to a sling. The patient was awoken from general anesthesia and transferred to recovery room in guarded condition. Blood loss was estimated 50 mL. No complications were incurred. Sponge and needle counts were correct in the case. Phi FIGUEREDO assisted during the major components the case to include positioning, exposure, debrid ement, and closure.
[2024-01-11 15:34] LABS: Glucose,Whole Blood 159 mg/dL (70-110)
[2024-01-11] MEDS: DARBEPOETIN ALFA 40 MCG/0.4 ML SYRINGE SQ SCH (15:52)
[2024-01-11] MEDS: SODIUM BICARBONATE TAB 650 MG TAB PO SCH (15:52)
--- NOTE | 2024-01-11 15:52 | P.PN ---
Subjective Progress Note Date: 01/11/24 78-year-old female patient got transferred to the intensive care unit because of ongoing seizure activity and concerns for status epilepticus. The patient was hospitalized few days back with altered mentation and confusion. She apparently has history of dementia possible evidence status of his dementia and she has some baseline confusion. It was noted that her confusion was progressively getting worse and she also had diminished appetite also. In the emergency department, the patient was hemodynamically stable. Initial CAT scan of the brain was negative for any acute intracranial process and the patient had chronic appearing patchy periventricular white matter ischemic changes and atrophy. Chest x-ray was normal. X-ray of the left shoulder was done and the patient showed a large bony defect in the left humeral head articular space and the shoulder was quite swollen. This was suspected to be related to a traumatic injury. Pelvic x-ray showed also superior inferior pubic rami fracture on the right and subacute incomplete healed fractures and the superior pubic ramus was displaced by around 9 mm. Blood work showed leukocytosis with a white cell count of 19.3 with a hemoglobin of 7.4 and she has chronic baseline anemia. The patient also had a sodium level of 133 with a potassium level 5.4 and a chloride of 97 with a BUN of 63 and a creatinine of 2.9. Calcium was also elevated at 11.8. No significant abnormalities in liver function test. The viral screen was negative. UA was suggestive of an underlying infection and UTI was suspected. The patient also had some troponin leak. As such, the patient was admitted to the hospital for further workup and treatment. She was seen by nephrology and the patient demonstrated progressive worsening in renal function and the creatinine delfina from 2.9 up to 4.05 and this morning is at 3.96. The white cell count dropped down to 9.3. Hemoglobin has been stable at 8.4 from today. The urine culture was positive for E. coli and this was an ESBL producing microorganism in the blood culture was also positive for Staph aureus/MSSA and this was identified on 2 separate blood cultures. Infectious disease was consulted and the patient was placed on IV cefazolin. Based on the staphylococcal growth in the blood and the joint swelling in the left shoulder, there is a concern for septic arthritis. MRI of the left shoulder was ordered and orthopedic consultation was also requested. The CT scan of the abdomen and pelvis showed no acute intra-abdominal process without any obstructive uropathy or calculus. Subacute fractures of the right inferior and superior rami/pubic rami as well as the right sacrum was noted. This afternoon, the patient was noted to have eye twitching and gaze deviation to the left and seizure-like activity. Subsequently, in the morning, the patient continued to have left gaze deviation with eye twitching and seizure- like tonic-clonic seizure activity as reported by the nursing staff that lasted less than a minute. The patient continued to have recurrent seizures following that lasting up to 5 minutes with the left gaze deviation and generalized clonic activity. The patient had been given a total of 2 mg of IV Ativan during the first episode another 2 mg of Ativan during the second episode bringing her up to a total of 4 mg. She was loaded with Keppra 500 mg IV and dose adjustment wa s done based on the underlying renal failure. Noted the patient does not have any history of seizure activity or seizure disorder. She is currently afebrile. I was asked to move the patient to the intensive care unit for further monitoring. A repeat CAT scan of the brain was done and it showed atrophy with chronic appearing periventricular white matter ischemic changes and the findings were essentially stable. At this point in time, the patient is on 2 L of oxygen by nasal cannula. The patient remains on IV cefazolin. On today's evaluation of 01/10/2024, the patient is being seen for a follow-up. Her neurostatus is improved slightly compared to yesterday and the patient was able to answer some simple commands. No focal neurological deficits. No facial asymmetry. Pupils are equal reactive to light. Lumbar puncture was done yesterday and the patient has only 1 nucleated cell without any significant elevation in the CSF protein. Cultures are still negative. This is essentially negative LP . There is CSF RBC was 17. CSF glucose was 107. No neck stiffness. No further seizure activity and the patient is currently on Vimpat 100 mg IV every 12 hours. MRI of the brain is to be done today. EEG was completed and showed encephalopathy and there was no indication for an acute or ongoing seizure activity. The plan for now is to proceed with an MRI of the brain and the patient is also going to need an MRI of the shoulder with concerns of septic arthritis. Ultrasound Doppler of the left upper extremity was also done today. This was done essentially to rule out DVT and the results are still pending for now. The patient is afebrile. The patient is hemodynamically s table. Pulse ox is 99% on 2 L of oxygen by nasal cannula. Remains on normal saline at rate of 75 cc an hour. ID is on the case. The patient was growing ESBL producing E. coli in the urine however she did not have any urinary symptoms and the repeat urine cultures have been negative. Based on that, no further antibiotic coverage was recommended in that regard. On today's evaluation of 01/11/2024, the patient is being seen for a follow-up. She is alert and communicating at this point in time. She was transferred out of the intensive care unit. The no further seizure activity and the patient remains on Vimpat. Lumbar puncture was negative. No neck stiffness. No focal neurological deficits. The patient remains on IV cefazolin regarding her staphylococcal septicemia. The patient also had a MRI of the brain that showed no acute abnormalities. MRI of the shoulder was quite abnormal and the patient was Considered to have possibility of septic arthritis. The patient had severe osseous and periarticular and surrounding soft tissue edema along with severe bone loss particularly in the articular surface of the head and underlying joints/bursa effusion as well as located fluid in the lateral deltoid shelf was seen measuring 4.3 cm in size and this made the possibility of septic arthritis more concerning. Based on that, the patient was taken to the operating room and the patient underwent a arthrotomy of the left shoulder along with irrigation debridement and incision and drainage of the left septic shoulder. The patient was found to have significant destruction involving the left humeral head. The bone was debrided. There was thickened synovial tissue that was excised. The joint was then copiously irrigated. A deep drain was placed into the glenohumeral joint. The skin was sutured with appropriate dressing was applied and the patient was brought back to the medical floor. Currently she is on 2 L of oxygen nasal cannula with a pulse ox of 92%. The blood work from today shows a WBC count 9.2, hemoglobin 7.3 and a platelet count of 257. BUN is at 49 with a creatinine of 4.06 and a sodium levels at 138. No other significant events overnight. MRI of the brain was nonspecific and showed atrophy and chronic appearing periventricular white matter ischemic changes. Objective - Vital Signs Vital signs: Vital Signs Temp 98.1 F 01/10/24 20:00 Pulse 86 01/11/24 04:00 Resp 17 01/11/24 04:00 BP 160/74 01/11/24 04:00 Pulse Ox 99 01/11/24 04:00 FiO2 Intake & Output 01/10/24 01/11/24 01/11/24 18:59 06:59 18:59 Intake Total 850 Output Total 290 300 Balance 560 -300 Intake: IV 850 Sodium Chloride 0.9% 1, 850 000 ml @ 75 mls/hr IV . [id number] [facility] Rx#:[id number] Output: Urine 290 300 Other: Voiding Method Indwelling Catheter Indwelling Catheter - Exam General: appears stated age.,, Comfortable the patient is currently on 2 L of oxygen by nasal cannula. Derm: Skin warm and dry, normal coloration for ethnicity. Head: Atraumatic, normocephalic and symmetric. Eyes: no lid lag, and anicteric sclera, EOMI Mouth: no lip lesions, mucus membranes moist Cardiovascular: regular rate and rhythm with normal S1S2, systolic murmur, positive posterior tibial pulses bilaterally, and cap refill < 2 seconds. Lungs: Respirations even, regular, and unlabored on room air. Lungs CTA bilaterally, no rhonchi, no rales, no wheezing, and no accessory muscle usage. Abdominal: soft, nontender to palpation, no guarding, no appreciable organomegaly Ext: Left upper extremity in a sling, left arm edema, along with postsurgical changes in the left upper extremity with a drain and the dressing is dry and not soaked at this point in time. Neuro: Lethargic is more awake compared to yesterday. Able to move her arms and legs without any limitation. Generalized profound weakness in all 4 extremities. Pupils are equal reactive to light. No facial asymmetry. Posi tive cough and gag. Responding to simple commands and answering simple questions. Psych: Unable to assess - Labs CBC & Chem 7: 01/11/24 07:11 01/11/24 07:11 Labs: Abnormal Lab Results - Last 24 Hours (Table) 01/10/24 01/10/24 01/11/24 Range/Units 11:28 19:55 06:01 RBC (3.80-5.40) m/uL Hgb (11.4-16.0) gm/dL Hct (34.0-46.0) % RDW (11.5-15.5) % Chloride (98-107) mmol/L Carbon Dioxide (22-30) mmol/L BUN (7-17) mg/dL Creatinine (0.52-1.04) mg/dL Glucose (74-99) mg/dL POC Glucose (mg/dL) 122 H 125 H 129 H (70-110) mg/dL Calcium (8.4-10.2) mg/dL 01/11/24 01/11/24 Range/Units 07:11 07:11 RBC 2.69 L (3.80-5.40) m/uL Hgb 7.3 L (11.4-16.0) gm/dL Hct 23.0 L (34.0-46.0) % RDW 16.1 H (11.5-15.5) % Chloride 109 H (98-107) mmol/L Carbon Dioxide 21 L (22-30) mmol/L BUN 49 H (7-17) mg/dL Creatinine 4.06 H (0.52-1.04) mg/dL Glucose 104 H (74-99) mg/dL POC Glucose (mg/dL) (70-110) mg/dL Calcium 6.9 L (8.4-10.2) mg/dL Microbiology - Last 24 Hours (Table) 01/09/24 15:19 CSF Gram Stain - Preliminary Cerebral Spinal Fluid CSF Culture - Preliminary 01/07/24 07:28 Blood Culture - Preliminary Blood Assessment and Plan Plan: New onset seizure with status epilepticus controlled on Vimpat and the patient has not had any seizure episodes over the past 24 hours. EEG showing encephalopathy without any ongoing seizure activity. The patient is free of any seizure activity. MRI of the brain showed chronic periventricular white matter disease and atrophy. No acute abnormalities. MSSA bacteremia/sepsis currently on IV cefazolin Left glenohumeral joint septic arthritis and subdeltoid abscess. The patient had left shoulder swelling, along with pain.. The patient has left humeral head collapse, consider AVN versus neuropathic arthropathy. Possibility of a septic arthritis cannot be ruled out. Fractures could be related to seizures and the patient is currently wearing a sling and orthopedic surgery is on the case. MRI of the shoulder was indicative of septic arthritis and the patient underwent arthrotomy and debridement and irrigation of the left shoulder along with incision and drainage of the left septic shoulder joint. The patient is currently postop day #0. Pelvic fracture related to seizure/fall. Pelvic fracture was present approximately 6 weeks ago, and the patient has superior and inferior pubic rami fracture on the right Acute kidney injury, creatinine remains stable and unchanged Alzheimer's dementia Hypertension Hyperlipidemia Hypothyroidism [id number] diabetes mellitus Iron deficiency anemia History of recurrent urine tract infection most recent infections with E. coli Abnormal troponins, consider type II myocardial ischemia, echo of the heart shows a preserved LV function with a normal ejection fraction of 55 to 60% History of Parkinson's disease DNR/DNI CODE STATUS Plan Left shoulder arthrotomy and debridement and drainage of the subdeltoid abscess was done. Patient will be kept on IV cefazolin pending further cultures from the left shoulder Continue Vimpat 100 mg IV twice daily Ativan as needed for breakthrough seizures EEG was noted and is consistent with encephalopathy Lumbar puncture, negative MRI of the brain, showing no acute abnormalities MRI of the shoulder, completed and the results were noted Orthopedic surgery is on the case IV fluids normal saline at rate of 75 cc an hour Resume home medications and assess swallow Nephrology regarding the acute kidney injury, keep Rodriguez catheter in place, likely ATN knowing that the baseline creatinine was stable on 01/06/2024 and 0.9. No hydronephrosis. Avoid nephrotoxic agents. DNR/DNI CODE STATUS Will follow
[2024-01-11 17:08] LABS: Glucose,Whole Blood 166 mg/dL (70-110)
[2024-01-11 20:04] LABS: Glucose,Whole Blood 181 mg/dL (70-110)
[2024-01-11] MEDS: LACOSAMIDE 50 MG TABLET PO SCH (20:45)
[2024-01-12 06:10] LABS: Glucose,Whole Blood 127 mg/dL (70-110)
[2024-01-12 09:29] LABS: Basophils % (A) 0 %; Eosinophils % (A) 0 %; Hypochromasia Marked; Lymphocytes # (A) 0.9 k/uL (1.0-4.8); Lymphocytes % (A) 11 %; MCH 28.4 pg (25.0-35.0); MCV 88.8 fL (80.0-100.0); Mean Platelet Volume 7.8; Monocytes # (A) 0.6 k/uL (0-1.0); Monocytes % (A) 7 %; Neutrophils # (A) 6.3 k/uL (1.3-7.7); Neutrophils % (A) 80 %; Platelet Count 257 k/uL (150-450); RBC 2.24 m/uL (3.80-5.40); RDW 15.7 % (11.5-15.5); WBC 7.9 k/uL (3.8-10.6)
[2024-01-12 09:41] LABS: HGB 6.4 gm/dL (11.4-16.0)
[2024-01-12 09:42] LABS: HCT 19.9 % (34.0-46.0)
[2024-01-12 09:43] LABS: African American GFR (CKD) 11 (>60 ml/min/1.73 sqM); Anion Gap 7 mmol/L; Blood Urea Nitrogen 46 mg/dL (7-17); Carbon Dioxide 19 mmol/L (22-30); Chloride 112 mmol/L (98-107); Glucose 115 mg/dL (74-99); Magnesium 1.6 mg/dL (1.6-2.3); Non-African American GFR(CKD) 10 (>60 ml/min/1.73 sqM); Potassium 3.8 mmol/L (3.5-5.1); Sodium 138 mmol/L (137-145)
[2024-01-12 09:56] LABS: Calcium 6.4 mg/dL (8.4-10.2)
--- NOTE | 2024-01-12 10:08 | P.PN ---
Subjective Patient is seen in follow-up for acute kidney injury. Renal function fairly stable. Nonoliguric. Has Rodriguez catheter. Receiving IV fluids. Poor historian. Vital signs are stable. General: Resting in bed. HEENT: Head exam is unremarkable. LUNGS: No audible rhonchi or wheezes. HEART: Rate and Rhythm are regular. ABDOMEN: Nontender. EXTREMITITES: No edema. Shoulder dressing and drain noted. Objective - Vital Signs Vital signs: Vital Signs Temp 97.7 F 01/11/24 20:00 Pulse 88 01/12/24 04:00 Resp 18 01/12/24 04:00 BP 118/45 01/12/24 04:00 Pulse Ox 100 01/12/24 04:00 FiO2 Intake & Output 01/11/24 01/12/24 01/12/24 18:59 06:59 18:59 Intake Total 669 540 Output Total 275 320 Balance 394 220 Weight 60.6 kg Intake: IV 551 Oral 118 540 Output: Urine 225 320 Estimated Blood Loss 50 Other: Voiding Method Indwelling Catheter Indwelling Catheter - Labs CBC & Chem 7: 01/12/24 08:20 01/12/24 08:20 Labs: Abnormal Lab Results - Last 24 Hours (Table) 01/11/24 01/11/24 01/11/24 Range/Units 11:53 12:44 15:32 RBC (3.80-5.40) m/uL Hgb (11.4-16.0) gm/dL Hct (34.0-46.0) % RDW (11.5-15.5) % Chloride (98-107) mmol/L Carbon Dioxide (22-30) mmol/L BUN (7-17) mg/dL Creatinine (0.52-1.04) mg/dL Glucose (74-99) mg/dL POC Glucose (mg/dL) 140 H 136 H 159 H (70-110) mg/dL Calcium (8.4-10.2) mg/dL 01/11/24 01/11/24 01/12/24 Range/Units 17:06 20:03 06:09 RBC (3.80-5.40) m/uL Hgb (11.4-16.0) gm/dL Hct (34.0-46.0) % RDW (11.5-15.5) % Chloride (98-107) mmol/L Carbon Dioxide (22-30) mmol/L BUN (7-17) mg/dL Creatinine (0.52-1.04) mg/dL Glucose (74-99) mg/dL POC Glucose (mg/dL) 166 H 181 H 127 H (70-110) mg/dL Calcium (8.4-10.2) mg/dL 01/12/24 01/12/24 Range/Units 08:20 08:20 RBC 2.24 L (3.80-5.40) m/uL Hgb 6.4 L* (11.4-16.0) gm/dL Hct 19.9 L* (34.0-46.0) % RDW 15.7 H (11.5-15.5) % Chloride 112 H (98-107) mmol/L Carbon Dioxide 19 L (22-30) mmol/L BUN 46 H (7-17) mg/dL Creatinine 4.05 H (0.52-1.04) mg/dL Glucose 115 H (74-99) mg/dL POC Glucose (mg/dL) (70-110) mg/dL Calcium 6.4 L* (8.4-10.2) mg/dL Microbiology - Last 24 Hours (Table) 01/09/24 15:19 CSF Gram Stain - Preliminary Cerebral Spinal Fluid CSF Culture - Preliminary 01/11/24 14:15 Gram Stain - Preliminary Shoulder - Left 01/06/24 06:05 Blood Culture - Final Blood Assessment and Plan Plan: Assessment: 1. Acute kidney injury secondary to ATN secondary to severe sepsis. Creatinine 0.9 dated December 06, 2023. Renal function stable. Creatinine 4.05 today. No hydronephrosis noted on kidney ultrasound/CT. 2. Severe sepsis secondary to Staph aureus bacteremia and E. coli UTI on antibiotics. Also concern for septic arthritis of left shoulder. S/p I&D of left shoulder January 11, 2024. 3. Metabolic acidosis secondary to acute kidney injury on IV fluids. Status post bicarb drip. Now on oral bicarb. 4. Acute blood loss anemia status post blood transfusion this admission. Hemoglobin 6.4 today. On Aranesp. 5. Benign hypertension. Stable. 6. Seizure-like activity. Neurology following. Status post LP, CAT scan and EEG. 7. Hypokalemia from poor intake. Replaced. Stable. 8. Hypocalcemia secondary to acute kidney injury. Corrected calcium near 8 based on albumin of 2.1 from January 08, 2024. Plan: Maintain normal saline. Maintain Rodriguez catheter. Strict I's and O's. Avoid nephrotoxins. Continue to monitor renal function and urine output. Avoid IV iron in the setting of acute infection. IV DDAVP x 1 dose today. Scheduled to receive a unit of blood today. Replace calcium.
[2024-01-12 11:04] LABS: RBC Morphology Normal
[2024-01-12 11:33] LABS: VDRL, Qualitative CSF Nonreactive (Nonreactive)
--- NOTE | 2024-01-12 11:34 | P.PN ---
Subjective Progress Note Date: 01/12/24 Hospital course: Patient is a very pleasant 78-year-old female with a past medical history of Alzheimer's dementia with baseline mentation alert and oriented x 1-2, hypertension, hyperlipidemia, hypothyroidism, [id number] diabetes mellitus, iron deficiency anemia, recurrent UTIs, and history of prior pelvic fracture with chronic pelvic pain. She presented to the emergency department with a chief complaint of worsening confusion. Patient's reports that his is normally confused but he has noticed worsening confusion and a decreased appetite over the past few days. She underwent full evaluation in the emergency department. Vital signs upon arrival show blood pressure 132/63, heart rate 96, respiratory rate 20, temp 99.6 F, and SpO2 of 100% on room air. EKG completed showing normal sinus rhythm at 98 bpm with no significant T wave or ST abnormalities showing no signs of acute ischemia upon personal review and interpretation. CT brain completed and negative for acute intracranial process with radiology report stating stable chronic appearing patchy periventricular white matter ischemic changes with atrophy. Chest x-ray completed and was negative for acute cardiopulmonary process. X-ray left shoulder completed showing large bony defect in the humeral head articular surface. Pelvis x-ray completed showing known superior and inferior pubic rami fracture on the right reporting these as subacute incompletely healed fractures but reporting the superior pubic ramus fracture has displaced now by 9 mm versus 3 mm previously. Labs were completed and reviewed. CBC showing leukocytosis with a WBC count of 19.3 and hemoglobin of 7.4 (with a baseline hemoglobin of around 7.5). BMP showing hyponatremia with sodium of 133, hyperkalemia with potassium of 5.4, hypochloremia with chloride of 97, and an acute kidney injury with BUN of 62, creatinine 2.93, and GFR of 15 with baseline creatinine of 0.9. Calcium high at 11.8. Liver profile showing no significant abnormalities with the exception of low albumin of 2.9. Initial troponin elevated at 0.251. Urinalysis positive for protein, ketones, blood, leukocyte esterase, greater than 182 RBCs, and 69 WBCs. Influenza A, influenza B, COVID, and RSV were negative. Patient was admitted under our services with consultation to cardiology, nephrology and orthopedic surgery. Troponins trended overnight resulting at 0.251, 0.432, and 0.505. Orthopedic surgery evaluated, recommending conservative measures with use of sling to left upper extremity. Orthopedic team also recommending patient may perform gentle range of motion exercises of left upper extremity as tolerated, remain nonweightbearing to left upper extremity and in regards to pubic rami fracture patient may be weightbearing as tolerated and ambulate with walker with assistance. Renal function continues to worsen. Nephrology also consulted. Patient also found to have MSSA bacteremia. ID also consulted. Currently on IV antibiotics. Source unclear. On 01/09/2024 patient had status epilepticus, did resolve with IV Ativan and IV Keppra. Neurology consulted. Patient transferred to medical ICU. Brain MRI did not show any acute process. Shoulder MRI showed loculated fluid measuring up to 4.3 cm concerning for septic arthritis. Started on antiepileptics. Mental status improved. Now back to floors. Patient is status post shoulder surgery. Subjective: Patient seen and examined at bedside. No acute events overnight. No seizure- like activity noted. Rodriguez catheter in place. Making urine. Physical exam: Vital signs reviewed and stable. General: appears stated age, not in acute distress Derm: Skin warm and dry, normal coloration for ethnicity. Head: Atraumatic, normocephalic and symmetric. Eyes: no lid lag, and anicteric sclera, EOMI Mouth: no lip lesions, mucus membranes moist Cardiovascular: regular rate and rhythm with normal S1S2, systolic murmur, positive posterior tibial pulses bilaterally, and cap refill < 2 seconds. Lungs: Respirations even, regular, and unlabored on room air. Lungs CTA bilaterally, no rhonchi, no rales, no wheezing, and no accessory muscle usage. Abdominal: soft, nontender to palpation, no guarding, no appreciable organomegaly Ext: Unable to move left upper extremity due to edema and pain, dressing clean, dry, intact Neuro: CN II to XII grossly intact Psych: Alert, oriented x 1 Assessment and Plan of Care: Patient is severely ill, needs close monitoring. Prognosis guarded. MSSA bacteremia Left shoulder septic arthritis, status post surgery UTI unlikely Nonoliguric, acute kidney injury, stable Acute on chronic Iron Deficiency anemia, status post 1 unit of PRBCs Hyperkalemia, resolved Hypokalemia, resolved Hypocalcemia -She is status post surgical intervention for left shoulder septic arthritis -Nephrology note reviewed, on oral sodium bicarb, continue normal saline at 75 cc an hour, strict I's and O's, maintain Rodriguez catheter, avoid IV iron, replace calcium, DDAVP x 1 -Hemoglobin slightly down trended, being transfused 1 unit of PRBCs -ID following, continue IV cefazolin 1 g every 24 hours -Repeat blood cultures no growth to date -Echocardiogram does not show any valvular vegetation -Patient to remain on continuous telemetry monitoring. -Continue ferrous sulfate 325 mg daily, and ascorbic acid, hold off IV iron Status post Status epilepticus Discussed management with neurology, continue oral Vimpat 100 twice daily, signed off IV Ativan 2 mg every 6 hours as needed for seizures Seizure precautions Elevated troponins, type II NSTEMI -Chest pain-free, cardiology signed off -Continue aspirin 81 mg daily and atorvastatin 40 mg daily. -Patient to remain on continuous telemetry monitoring Acute metabolic encephalopathy, possibly in the setting of seizures Alzheimer's dementia Parkinson's disease -Continue daily medication regimen with carbidopa levodopa 25/100 mg tablets 4 times daily. Left shoulder and pelvic pain Right-sided superior and inferior pubic rami fractures, chronic Left shoulder humeral head collapse -Fractures possibly in the setting of seizures -Orthopedic surgery consulted, recommending conservative measures with use of sling to left upper extremity. Orthopedic team also recommending patient may perform gentle range of motion exercises of left upper extremity as tolerated, remain nonweightbearing to left upper extremity and in regards to pubic rami fracture patient may be weightbearing as tolerated and ambulate with walker with assistance. -Left upper extremity Doppler negative DVT Type II non-insulin dependent diabetes mellitus -Continue to hold metformin -Continue sliding scale insulin, monitor for hypoglycemia Hypothyroidism -Continue daily medication regimen with levothyroxine 100 mcg daily. -TSH 1.200 Data and imaging reviewed: Hemoglobin 6.4, bicarb 19, creatinine 4.05, calcium 6.4 CODE STATUS: DNR/DNI DVT prophylaxis: Subcu heparin Anticipated discharge date: Clinical course to determine Anticipated discharge place: Clinical course to determine Objective - Vital Signs Vital signs: Vital Signs Temp 98.3 F 01/12/24 08:00 Pulse 96 01/12/24 08:00 Resp 18 01/12/24 08:00 BP 117/49 01/12/24 08:00 Pulse Ox 96 01/12/24 08:00 FiO2 Intake & Output 01/11/24 01/12/24 01/12/24 18:59 06:59 18:59 Intake Total 669 540 Output Total 275 320 Balance 394 220 Weight 60.6 kg Intake: IV 551 Oral 118 540 Output: Urine 225 320 Estimated Blood Loss 50 Other: Voiding Method Indwelling Catheter Indwelling Catheter Indwelling Catheter - Labs CBC & Chem 7: 01/12/24 08:20 01/12/24 08:20 Labs: Abnormal Lab Results - Last 24 Hours (Table) 01/11/24 01/11/24 01/11/24 Range/Units 11:53 12:44 15:32 RBC (3.80-5.40) m/uL Hgb (11.4-16.0) gm/dL Hct (34.0-46.0) % RDW (11.5-15.5) % Lymphocytes # (1.0-4.8) k/uL Chloride (98-107) mmol/L Carbon Dioxide (22-30) mmol/L BUN (7-17) mg/dL Creatinine (0.52-1.04) mg/dL Glucose (74-99) mg/dL POC Glucose (mg/dL) 140 H 136 H 159 H (70-110) mg/dL Calcium (8.4-10.2) mg/dL 01/11/24 01/11/24 01/12/24 Range/Units 17:06 20:03 06:09 RBC (3.80-5.40) m/uL Hgb (11.4-16.0) gm/dL Hct (34.0-46.0) % RDW (11.5-15.5) % Lymphocytes # (1.0-4.8) k/uL Chloride (98-107) mmol/L Carbon Dioxide (22-30) mmol/L BUN (7-17) mg/dL Creatinine (0.52-1.04) mg/dL Glucose (74-99) mg/dL POC Glucose (mg/dL) 166 H 181 H 127 H (70-110) mg/dL Calcium (8.4-10.2) mg/dL 01/12/24 01/12/24 Range/Units 08:20 08:20 RBC 2.24 L (3.80-5.40) m/uL Hgb 6.4 L* (11.4-16.0) gm/dL Hct 19.9 L* (34.0-46.0) % RDW 15.7 H (11.5-15.5) % Lymphocytes # 0.9 L (1.0-4.8) k/uL Chloride 112 H (98-107) mmol/L Carbon Dioxide 19 L (22-30) mmol/L BUN 46 H (7-17) mg/dL Creatinine 4.05 H (0.52-1.04) mg/dL Glucose 115 H (74-99) mg/dL POC Glucose (mg/dL) (70-110) mg/dL Calcium 6.4 L* (8.4-10.2) mg/dL Microbiology - Last 24 Hours (Table) 01/09/24 15:19 CSF Gram Stain - Preliminary Cerebral Spinal Fluid CSF Culture - Preliminary 01/11/24 14:15 Gram Stain - Preliminary Shoulder - Left 01/06/24 06:05 Blood Culture - Final Blood
[2024-01-12 11:38] LABS: Glucose,Whole Blood 199 mg/dL (70-110)
[2024-01-12] MEDS: DESMOPRESSIN ACETATE 18 MCG in SODIUM CHLORIDE 0.9% 50 ML IVPB ONE (12:05)
--- NOTE | 2024-01-12 12:58 | P.PN ---
Subjective Progress Note Date: 01/12/24 Principal diagnosis: Status post I&D left shoulder Patient was evaluated today at bedside, she is resting in her hospital bed. Patient appears comfortable, she does answer some of my questions, she is about at her baseline due to dementia. She is having minimal shoulder pain at this time. The postop bandage is in good position, the Hemovac drain is also in position. Objective - Vital Signs Vital signs: Vital Signs Temp 98.3 F 01/12/24 08:00 Pulse 96 01/12/24 08:00 Resp 18 01/12/24 08:00 BP 117/49 01/12/24 08:00 Pulse Ox 96 01/12/24 08:00 FiO2 Intake & Output 01/11/24 01/12/24 01/12/24 18:59 06:59 18:59 Intake Total 669 540 Output Total 275 320 Balance 394 220 Weight 60.6 kg Intake: IV 551 Oral 118 540 Output: Urine 225 320 Estimated Blood Loss 50 Other: Voiding Method Indwelling Catheter Indwelling Catheter Indwelling Catheter - Exam Left upper extremity: Postoperative dressing is in good position and condition, Hemovac drain is in good position and condition, there is mild/moderate serosanguineous output noted. Swelling is noted throughout the extremity. Her sensory exam to light touch is intact throughout the extremity. Her radial and ulnar pulse are 2+ - Labs CBC & Chem 7: 01/12/24 08:20 01/12/24 08:20 Labs: Abnormal Lab Results - Last 24 Hours (Table) 01/11/24 01/11/24 01/11/24 Range/Units 15:32 17:06 20:03 RBC (3.80-5.40) m/uL Hgb (11.4-16.0) gm/dL Hct (34.0-46.0) % RDW (11.5-15.5) % Lymphocytes # (1.0-4.8) k/uL Chloride (98-107) mmol/L Carbon Dioxide (22-30) mmol/L BUN (7-17) mg/dL Creatinine (0.52-1.04) mg/dL Glucose (74-99) mg/dL POC Glucose (mg/dL) 159 H 166 H 181 H (70-110) mg/dL Calcium (8.4-10.2) mg/dL Crossmatch 01/12/24 01/12/24 01/12/24 Range/Units 06:09 08:20 08:20 RBC 2.24 L (3.80-5.40) m/uL Hgb 6.4 L* (11.4-16.0) gm/dL Hct 19.9 L* (34.0-46.0) % RDW 15.7 H (11.5-15.5) % Lymphocytes # 0.9 L (1.0-4.8) k/uL Chloride 112 H (98-107) mmol/L Carbon Dioxide 19 L (22-30) mmol/L BUN 46 H (7-17) mg/dL Creatinine 4.05 H (0.52-1.04) mg/dL Glucose 115 H (74-99) mg/dL POC Glucose (mg/dL) 127 H (70-110) mg/dL Calcium 6.4 L* (8.4-10.2) mg/dL Crossmatch 01/12/24 01/12/24 Range/Units 10:47 11:37 RBC (3.80-5.40) m/uL Hgb (11.4-16.0) gm/dL Hct (34.0-46.0) % RDW (11.5-15.5) % Lymphocytes # (1.0-4.8) k/uL Chloride (98-107) mmol/L Carbon Dioxide (22-30) mmol/L BUN (7-17) mg/dL Creatinine (0.52-1.04) mg/dL Glucose (74-99) mg/dL POC Glucose (mg/dL) 199 H (70-110) mg/dL Calcium (8.4-10.2) mg/dL Crossmatch See Detail Microbiology - Last 24 Hours (Table) 01/09/24 15:19 CSF Gram Stain - Preliminary Cerebral Spinal Fluid CSF Culture - Preliminary 01/11/24 14:15 Gram Stain - Preliminary Shoulder - Left 01/06/24 06:05 Blood Culture - Final Blood Assessment and Plan Assessment: Postoperative day #1 status post I&D left shoulder Plan: Planning for dressing change on 01/13/2024 Continue to utilize Hemovac drain and monitor output Basic range of motion of the left shoulder is okay, avoid excess lifting GI and DVT prophylaxis per primary medical service Continue to follow during hospital stay Time with Patient: Less than 30
[2024-01-12] MEDS: CALCIUM GLUCONATE IN NACL 2 GM in SALINE 1 100ML.BAG IVPB ONE (13:14)
--- NOTE | 2024-01-12 15:18 | P.PN ---
Subjective Progress Note Date: 01/12/24 Principal diagnosis: Reason for follow-up is MSSA bacteremia Patient is a 78-year-old female past medical history pertinent for diabetes mellitus hypertension hyperlipidemia dementia and depression brought into the hospital for evaluation of worsening dementia/confusion noticed to have positive UA and did have MSSA bacteremia also abnormality to the left humeral head on the x-ray.Patient is status post Arthrotomy left shoulder/irrigation and debridement/incision and drainage left septic shoulder completed on 01/11/2024. On today's evaluation that is 01/12/2024,the patient denies any fever or any chills, patient is breathing comfortably on 2 L nasal cannula oxygen, the patient denies chest pain shortness of breath and no significant cough, patient denies abdominal pain, no nausea vomiting or diarrhea. Patient pain to the left shoulder is currently controlled. Patient did have white count of 7.9, creatinine 4.05 OR cultures pending repeat blood culture so far negative Objective - Vital Signs Vital signs: Vital Signs Temp 98.3 F 01/12/24 08:00 Pulse 87 01/12/24 13:56 Resp 18 01/12/24 12:00 BP 131/70 01/12/24 12:00 Pulse Ox 97 01/12/24 12:00 FiO2 Intake & Output 01/11/24 01/12/24 01/12/24 18:59 06:59 18:59 Intake Total 669 540 Output Total 275 320 200 Balance 394 220 -200 Weight 60.6 kg 60.6 kg Intake: IV 551 Oral 118 540 Output: Urine 225 320 200 Estimated Blood Loss 50 Other: Voiding Method Indwelling Catheter Indwelling Catheter Indwelling Catheter - Exam GENERAL DESCRIPTION: An elderly female lying in bed in no distress RESPIRATORY SYSTEM: Unlabored breathing , decreased breath sounds at bases HEART: S1 S2 regular rate and rhythm , ABDOMEN: Soft , no tenderness EXTREMITIES: No edema feet - Labs CBC & Chem 7: 01/12/24 08:20 01/12/24 08:20 Labs: Abnormal Lab Results - Last 24 Hours (Table) 01/11/24 01/11/24 01/11/24 Range/Units 15:32 17:06 20:03 RBC (3.80-5.40) m/uL Hgb (11.4-16.0) gm/dL Hct (34.0-46.0) % RDW (11.5-15.5) % Lymphocytes # (1.0-4.8) k/uL Chloride (98-107) mmol/L Carbon Dioxide (22-30) mmol/L BUN (7-17) mg/dL Creatinine (0.52-1.04) mg/dL Glucose (74-99) mg/dL POC Glucose (mg/dL) 159 H 166 H 181 H (70-110) mg/dL Calcium (8.4-10.2) mg/dL Crossmatch 01/12/24 01/12/24 01/12/24 Range/Units 06:09 08:20 08:20 RBC 2.24 L (3.80-5.40) m/uL Hgb 6.4 L* (11.4-16.0) gm/dL Hct 19.9 L* (34.0-46.0) % RDW 15.7 H (11.5-15.5) % Lymphocytes # 0.9 L (1.0-4.8) k/uL Chloride 112 H (98-107) mmol/L Carbon Dioxide 19 L (22-30) mmol/L BUN 46 H (7-17) mg/dL Creatinine 4.05 H (0.52-1.04) mg/dL Glucose 115 H (74-99) mg/dL POC Glucose (mg/dL) 127 H (70-110) mg/dL Calcium 6.4 L* (8.4-10.2) mg/dL Crossmatch 01/12/24 01/12/24 Range/Units 10:47 11:37 RBC (3.80-5.40) m/uL Hgb (11.4-16.0) gm/dL Hct (34.0-46.0) % RDW (11.5-15.5) % Lymphocytes # (1.0-4.8) k/uL Chloride (98-107) mmol/L Carbon Dioxide (22-30) mmol/L BUN (7-17) mg/dL Creatinine (0.52-1.04) mg/dL Glucose (74-99) mg/dL POC Glucose (mg/dL) 199 H (70-110) mg/dL Calcium (8.4-10.2) mg/dL Crossmatch See Detail Microbiology - Last 24 Hours (Table) 01/09/24 15:19 CSF Gram Stain - Preliminary Cerebral Spinal Fluid CSF Culture - Preliminary 01/11/24 14:15 Gram Stain - Preliminary Shoulder - Left 01/06/24 06:05 Blood Culture - Final Blood Assessment and Plan (1) MSSA bacteremia Current Visit: Yes Status: Acute Code(s): R78.81 - BACTEREMIA; B95.61 - METHICILLIN SUSCEP STAPH INFCT CAUSING DIS CLASSD [id number] SNOMED Code(s): 659902352 (2) Septic arthritis of shoulder, left Current Visit: Yes Status: Acute Code(s): M00.9 - PYOGENIC ARTHRITIS, UNSPECIFIED SNOMED Code(s): 12924099 Plan: 1-1patient is a 78-year-old female with multiple comorbidities presenting to the hospital with confusion and mental status changes did have a low-grade fever elevated white count and now with evidence of MSSA bacteremia source is likely left shoulder which was large bony defect of the humeral head articular surface which was not seen on October 30, 2023 x-ray as currently no other obvious focus for this bacteremia, MRI of the left shoulder is currently pending 2-blood cultures repeated on 01/06/2024 as well as 01/07/2024 has been negative 3-patient is also growing ESBL E. coli in the urine however the patient denies urinary symptoms question of possible asymptomatic bacteriuria, the patient repeat urine cultures are negative, no need for antibiotics 4-patient MRI suspicious for septic arthritis of the glenohumeral joint on the left side patient is status post arthrotomy left shoulder/irrigation and debridement/incision and drainage left septic shoulder completed on 01/11/2024 5patient to continue with the cefazolin will need a PICC line for outpatient IV antibiotic therapy Dictation was produced using [employer] dictation software. please excuse any grammatical, word or spelling errors. Time with Patient: Less than 30
--- NOTE | 2024-01-12 15:34 | P.PN ---
Subjective Progress Note Date: 01/12/24 78-year-old female patient got transferred to the intensive care unit because of ongoing seizure activity and concerns for status epilepticus. The patient was hospitalized few days back with altered mentation and confusion. She apparently has history of dementia possible evidence status of his dementia and she has some baseline confusion. It was noted that her confusion was progressively getting worse and she also had diminished appetite also. In the emergency department, the patient was hemodynamically stable. Initial CAT scan of the brain was negative for any acute intracranial process and the patient had chronic appearing patchy periventricular white matter ischemic changes and atrophy. Chest x-ray was normal. X-ray of the left shoulder was done and the patient showed a large bony defect in the left humeral head articular space and the shoulder was quite swollen. This was suspected to be related to a traumatic injury. Pelvic x-ray showed also superior inferior pubic rami fracture on the right and subacute incomplete healed fractures and the superior pubic ramus was displaced by around 9 mm. Blood work showed leukocytosis with a white cell count of 19.3 with a hemoglobin of 7.4 and she has chronic baseline anemia. The patient also had a sodium level of 133 with a potassium level 5.4 and a chloride of 97 with a BUN of 63 and a creatinine of 2.9. Calcium was also elevated at 11.8. No significant abnormalities in liver function test. The viral screen was negative. UA was suggestive of an underlying infection and UTI was suspected. The patient also had some troponin leak. As such, the patient was admitted to the hospital for further workup and treatment. She was seen by nephrology and the patient demonstrated progressive worsening in renal function and the creatinine delfina from 2.9 up to 4.05 and this morning is at 3.96. The white cell count dropped down to 9.3. Hemoglobin has been stable at 8.4 from today. The urine culture was positive for E. coli and this was an ESBL producing microorganism in the blood culture was also positive for Staph aureus/MSSA and this was identified on 2 separate blood cultures. Infectious disease was consulted and the patient was placed on IV cefazolin. Based on the staphylococcal growth in the blood and the joint swelling in the left shoulder, there is a concern for septic arthritis. MRI of the left shoulder was ordered and orthopedic consultation was also requested. The CT scan of the abdomen and pelvis showed no acute intra-abdominal process without any obstructive uropathy or calculus. Subacute fractures of the right inferior and superior rami/pubic rami as well as the right sacrum was noted. This afternoon, the patient was noted to have eye twitching and gaze deviation to the left and seizure-like activity. Subsequently, in the morning, the patient continued to have left gaze deviation with eye twitching and seizure- like tonic-clonic seizure activity as reported by the nursing staff that lasted less than a minute. The patient continued to have recurrent seizures following that lasting up to 5 minutes with the left gaze deviation and generalized clonic activity. The patient had been given a total of 2 mg of IV Ativan during the first episode another 2 mg of Ativan during the second episode bringing her up to a total of 4 mg. She was loaded with Keppra 500 mg IV and dose adjustment wa s done based on the underlying renal failure. Noted the patient does not have any history of seizure activity or seizure disorder. She is currently afebrile. I was asked to move the patient to the intensive care unit for further monitoring. A repeat CAT scan of the brain was done and it showed atrophy with chronic appearing periventricular white matter ischemic changes and the findings were essentially stable. At this point in time, the patient is on 2 L of oxygen by nasal cannula. The patient remains on IV cefazolin. On today's evaluation of 01/10/2024, the patient is being seen for a follow-up. Her neurostatus is improved slightly compared to yesterday and the patient was able to answer some simple commands. No focal neurological deficits. No facial asymmetry. Pupils are equal reactive to light. Lumbar puncture was done yesterday and the patient has only 1 nucleated cell without any significant elevation in the CSF protein. Cultures are still negative. This is essentially negative LP . There is CSF RBC was 17. CSF glucose was 107. No neck stiffness. No further seizure activity and the patient is currently on Vimpat 100 mg IV every 12 hours. MRI of the brain is to be done today. EEG was completed and showed encephalopathy and there was no indication for an acute or ongoing seizure activity. The plan for now is to proceed with an MRI of the brain and the patient is also going to need an MRI of the shoulder with concerns of septic arthritis. Ultrasound Doppler of the left upper extremity was also done today. This was done essentially to rule out DVT and the results are still pending for now. The patient is afebrile. The patient is hemodynamically s table. Pulse ox is 99% on 2 L of oxygen by nasal cannula. Remains on normal saline at rate of 75 cc an hour. ID is on the case. The patient was growing ESBL producing E. coli in the urine however she did not have any urinary symptoms and the repeat urine cultures have been negative. Based on that, no further antibiotic coverage was recommended in that regard. On today's evaluation of 01/11/2024, the patient is being seen for a follow-up. She is alert and communicating at this point in time. She was transferred out of the intensive care unit. The no further seizure activity and the patient remains on Vimpat. Lumbar puncture was negative. No neck stiffness. No focal neurological deficits. The patient remains on IV cefazolin regarding her staphylococcal septicemia. The patient also had a MRI of the brain that showed no acute abnormalities. MRI of the shoulder was quite abnormal and the patient was Considered to have possibility of septic arthritis. The patient had severe osseous and periarticular and surrounding soft tissue edema along with severe bone loss particularly in the articular surface of the head and underlying joints/bursa effusion as well as located fluid in the lateral deltoid shelf was seen measuring 4.3 cm in size and this made the possibility of septic arthritis more concerning. Based on that, the patient was taken to the operating room and the patient underwent a arthrotomy of the left shoulder along with irrigation debridement and incision and drainage of the left septic shoulder. The patient was found to have significant destruction involving the left humeral head. The bone was debrided. There was thickened synovial tissue that was excised. The joint was then copiously irrigated. A deep drain was placed into the glenohumeral joint. The skin was sutured with appropriate dressing was applied and the patient was brought back to the medical floor. Currently she is on 2 L of oxygen nasal cannula with a pulse ox of 92%. The blood work from today shows a WBC count 9.2, hemoglobin 7.3 and a platelet count of 257. BUN is at 49 with a creatinine of 4.06 and a sodium levels at 138. No other significant events overnight. MRI of the brain was nonspecific and showed atrophy and chronic appearing periventricular white matter ischemic changes. On 01/12/2024, the patient is being seen for a follow-up. Patient is doing well. No specific complaints. She underwent an orthopedic intervention which included arthrotomy of the left shoulder and irrigation debridement and incision and drainage of a left septic joint/arthritis. The cultures are still negative for now. No significant pain. Left upper extremity remains slightly swollen. The patient has no altered mentation. No seizure activity. She is calm and comfortable. She has dropped her hemoglobin down to 6.4 and the patient will be receiving unit of packed RBC. She continues to have chronic kidney disease with a BUN of 46 and a creatinine of 4.05 and her renal function remained stable. Sodium level is 138, bicarb is 19 And anion gap is at 7. The patient remains on IV cefazolin for now. The patient is also on oxygen at 2 L and she was transitioned to room air oxygen. Her pulse ox remains around 97%. No respiratory distress. No focal neurological deficits. Objective - Vital Signs Vital signs: Vital Signs Temp 97.7 F 01/11/24 20:00 Pulse 88 01/12/24 04:00 Resp 18 01/12/24 04:00 BP 118/45 01/12/24 04:00 Pulse Ox 100 01/12/24 04:00 FiO2 Intake & Output 01/11/24 01/12/24 01/12/24 18:59 06:59 18:59 Intake Total 669 540 Output Total 275 320 Balance 394 220 Weight 60.6 kg Intake: IV 551 Oral 118 540 Output: Urine 225 320 Estimated Blood Loss 50 Other: Voiding Method Indwelling Catheter Indwelling Catheter - Exam General: appears stated age.,, Comfortable the patient is currently on 2 L of oxygen by nasal cannula. Derm: Skin warm and dry, normal coloration for ethnicity. Head: Atraumatic, normocephalic and symmetric. Eyes: no lid lag, and anicteric sclera, EOMI Mouth: no lip lesions, mucus membranes moist Cardiovascular: regular rate and rhythm with normal S1S2, systolic murmur, positive posterior tibial pulses bilaterally, and cap refill < 2 seconds. Lungs: Respirations even, regular, and unlabored on room air. Lungs CTA bilaterally, no rhonchi, no rales, no wheezing, and no accessory muscle usage. Abdominal: soft, nontender to palpation, no guarding, no appreciable organomegaly Ext: Left upper extremity in a sling, left arm edema, along with postsurgical changes in the left upper extremity with a drain and the dressing is dry and not soaked at this point in time. Neuro: Lethargic is more awake compared to yesterday. Able to move her arms and legs without any limitation. Generalized profound weakness in all 4 extremities. Pupils are equal reactive to light. No facial asymmetry. Positive cough and gag. Responding to simple commands and answering simple questions. Psych: Unable to assess - Labs CBC & Chem 7: 01/12/24 08:20 01/12/24 08:20 Labs: Abnormal Lab Results - Last 24 Hours (Table) 01/11/24 01/11/24 01/11/24 Range/Units 11:53 12:44 15:32 RBC (3.80-5.40) m/uL Hgb (11.4-16.0) gm/dL Hct (34.0-46.0) % RDW (11.5-15.5) % Chloride (98-107) mmol/L Carbon Dioxide (22-30) mmol/L BUN (7-17) mg/dL Creatinine (0.52-1.04) mg/dL Glucose (74-99) mg/dL POC Glucose (mg/dL) 140 H 136 H 159 H (70-110) mg/dL Calcium (8.4-10.2) mg/dL 01/11/24 01/11/24 01/12/24 Range/Units 17:06 20:03 06:09 RBC (3.80-5.40) m/uL Hgb (11.4-16.0) gm/dL Hct (34.0-46.0) % RDW (11.5-15.5) % Chloride (98-107) mmol/L Carbon Dioxide (22-30) mmol/L BUN (7-17) mg/dL Creatinine (0.52-1.04) mg/dL Glucose (74-99) mg/dL POC Glucose (mg/dL) 166 H 181 H 127 H (70-110) mg/dL Calcium (8.4-10.2) mg/dL 01/12/24 01/12/24 Range/Units 08:20 08:20 RBC 2.24 L (3.80-5.40) m/uL Hgb 6.4 L* (11.4-16.0) gm/dL Hct 19.9 L* (34.0-46.0) % RDW 15.7 H (11.5-15.5) % Chloride 112 H (98-107) mmol/L Carbon Dioxide 19 L (22-30) mmol/L BUN 46 H (7-17) mg/dL Creatinine 4.05 H (0.52-1.04) mg/dL Glucose 115 H (74-99) mg/dL POC Glucose (mg/dL) (70-110) mg/dL Calcium 6.4 L* (8.4-10.2) mg/dL Microbiology - Last 24 Hours (Table) 01/09/24 15:19 CSF Gram Stain - Preliminary Cerebral Spinal Fluid CSF Culture - Preliminary 01/11/24 14:15 Gram Stain - Preliminary Shoulder - Left 01/06/24 06:05 Blood Culture - Final Blood Assessment and Plan Plan: New onset seizure with status epilepticus controlled on Vimpat and the patient has not had any seizure episodes over the past 24 hours. EEG showing encephalopathy without any ongoing seizure activity. The patient is free of any seizure activity. MRI of the brain showed chronic periventricular white matter disease and atrophy. No acute abnormalities. MSSA bacteremia/sepsis currently on IV cefazolin Left glenohumeral joint septic arthritis and subdeltoid abscess. The patient had left shoulder swelling, along with pain.. The patient has left humeral head collapse, consider AVN versus neuropathic arthropathy. Possibility of a septic arthritis cannot be ruled out. Fractures could be related to seizures and the patient is currently wearing a sling and orthopedic surgery is on the case. MRI of the shoulder was indicative of septic arthritis and the patient underwent arthrotomy and debridement and irrigation of the left shoulder along with incision and drainage of the left septic shoulder joint. The patient is currently postop day #1 Pelvic fracture related to seizure/fall. Pelvic fracture was present approximately 6 weeks ago, and the patient has superior and inferior pubic rami fracture on the right Acute kidney injury, creatinine remains stable and unchanged, creatinine is stable at 4.0 Alzheimer's dementia Hypertension Hyperlipidemia Hypothyroidism [id number] diabetes mellitus Iron deficiency anemia History of recurrent urine tract infection most recent infections with E. coli Abnormal troponins, consider type II myocardial ischemia, echo of the heart shows a preserved LV function with a normal ejection fraction of 55 to 60% History of Parkinson's disease DNR/DNI CODE STATUS Plan Respiratory status is stable and the patient will be transitioned to room air o xygen. Provide the patient is still spirometer Urology to stable and the patient is awake and alert and communicating. No altered mentation at this point in time. Left shoulder arthrotomy and debridement and drainage of the subdeltoid abscess was done. Patient is postop day #1. Awaiting cultures. Patient will be kept on IV cefazolin pending further cultures from the left shoulder Continue Vimpat 100 mg IV twice daily Ativan as needed for breakthrough seizures EEG was noted and is consistent with encephalopathy Lumbar puncture, negative MRI of the brain, showing no acute abnormalities MRI of the shoulder, completed and the results were noted Orthopedic surgery is on the case IV fluids normal saline at rate of 75 cc an hour Resume home medications and assess swallow Nephrology regarding the acute kidney injury, keep Rodriguez catheter in place, likely ATN knowing that the baseline creatinine was stable on 01/06/2024 and 0.9. No hydronephrosis. Avoid nephrotoxic agents. DNR/DNI CODE STATUS Will follow
[2024-01-12 16:20] LABS: Glucose,Whole Blood 178 mg/dL (70-110)
[2024-01-12] MEDS: ceFAZolin 1 GM in DEXTROSE/WATER 1 50ML.BAG IVPB SCH (18:25)
[2024-01-12 20:16] LABS: Glucose,Whole Blood 199 mg/dL (70-110)
[2024-01-13 06:19] LABS: Glucose,Whole Blood 130 mg/dL (70-110)
--- NOTE | 2024-01-13 08:58 | P.PN ---
Subjective Progress Note Date: 01/13/24 Principal diagnosis: Status post I&D left shoulder Patient was evaluated today at bedside, she is resting in her hospital bed. is present at bedside. Therapy was unable to get patient up yesterday, she was a full assist. She is having minimal shoulder pain at this time. The postop bandage is in good position, the Hemovac drain is also in position. Objective - Vital Signs Vital signs: Vital Signs Temp 98.1 F 01/13/24 08:41 Pulse 91 01/13/24 08:41 Resp 18 01/13/24 08:41 BP 156/84 01/13/24 08:41 Pulse Ox 96 01/13/24 08:41 FiO2 Intake & Output 01/12/24 01/13/24 01/13/24 18:59 06:59 18:59 Intake Total 428 240 Output Total 200 400 Balance 228 -160 Weight 60.6 kg Intake: Oral 118 240 Blood Product 310 Rc As-1 Unit 310 [id number] Output: Urine 200 400 Other: Voiding Method Indwelling Catheter Indwelling Catheter - Exam Left upper extremity: Postoperative dressing is in good position and condition, Hemovac drain is in good position and condition, there is mild/moderate serosanguineous output noted. Swelling is noted throughout the extremity. Her sensory exam to light touch is intact throughout the extremity. Her radial and ulnar pulse are 2+ - Labs CBC & Chem 7: 01/12/24 08:20 01/12/24 08:20 Labs: Abnormal Lab Results - Last 24 Hours (Table) 01/12/24 01/12/24 01/12/24 Range/Units 08:20 08:20 10:47 RBC 2.24 L (3.80-5.40) m/uL Hgb 6.4 L* (11.4-16.0) gm/dL Hct 19.9 L* (34.0-46.0) % RDW 15.7 H (11.5-15.5) % Lymphocytes # 0.9 L (1.0-4.8) k/uL Chloride 112 H (98-107) mmol/L Carbon Dioxide 19 L (22-30) mmol/L BUN 46 H (7-17) mg/dL Creatinine 4.05 H (0.52-1.04) mg/dL Glucose 115 H (74-99) mg/dL POC Glucose (mg/dL) (70-110) mg/dL Calcium 6.4 L* (8.4-10.2) mg/dL Crossmatch See Detail 01/12/24 01/12/24 01/12/24 Range/Units 11:37 16:18 20:16 RBC (3.80-5.40) m/uL Hgb (11.4-16.0) gm/dL Hct (34.0-46.0) % RDW (11.5-15.5) % Lymphocytes # (1.0-4.8) k/uL Chloride (98-107) mmol/L Carbon Dioxide (22-30) mmol/L BUN (7-17) mg/dL Creatinine (0.52-1.04) mg/dL Glucose (74-99) mg/dL POC Glucose (mg/dL) 199 H 178 H 199 H (70-110) mg/dL Calcium (8.4-10.2) mg/dL Crossmatch 01/13/24 Range/Units 06:17 RBC (3.80-5.40) m/uL Hgb (11.4-16.0) gm/dL Hct (34.0-46.0) % RDW (11.5-15.5) % Lymphocytes # (1.0-4.8) k/uL Chloride (98-107) mmol/L Carbon Dioxide (22-30) mmol/L BUN (7-17) mg/dL Creatinine (0.52-1.04) mg/dL Glucose (74-99) mg/dL POC Glucose (mg/dL) 130 H (70-110) mg/dL Calcium (8.4-10.2) mg/dL Crossmatch Microbiology - Last 24 Hours (Table) 01/07/24 07:28 Blood Culture - Final Blood 01/09/24 15:19 CSF Gram Stain - Preliminary Cerebral Spinal Fluid CSF Culture - Preliminary 01/11/24 14:15 Gram Stain - Preliminary Shoulder - Left Assessment and Plan Assessment: Postoperative day #2 status post I&D left shoulder Multiple medical comorbidities Plan: Hemovac still putting out bloody serosanguineous fluid, will leave dressing and drain in place at this time. Reassess on 01/14/2024 PT/OT evaluation Basic range of motion of the left shoulder is okay, avoid excess lifting GI and DVT prophylaxis per primary medical service Continue to follow during hospital stay Time with Patient: Less than 30
[2024-01-13 09:22] LABS: ALT <6 U/L (4-34); AST 15 U/L (14-36); African American GFR (CKD) 11 (>60 ml/min/1.73 sqM); Albumin 2.1 g/dL (3.5-5.0); Alkaline Phosphatase 85 U/L (38-126); Anion Gap 8 mmol/L; Blood Urea Nitrogen 45 mg/dL (7-17); Calcium 6.8 mg/dL (8.4-10.2); Carbon Dioxide 19 mmol/L (22-30); Chloride 113 mmol/L (98-107); Glucose 121 mg/dL (74-99); Magnesium 1.6 mg/dL (1.6-2.3); Non-African American GFR(CKD) 10 (>60 ml/min/1.73 sqM); Potassium 3.7 mmol/L (3.5-5.1); Sodium 140 mmol/L (137-145); Total Bilirubin 0.3 mg/dL (0.2-1.3)
[2024-01-13 09:25] LABS: Basophils % (A) 0 %; Eosinophils # (A) 0.1 k/uL (0-0.7); Eosinophils % (A) 1 %; HCT 24.5 % (34.0-46.0); Hypochromasia Moderate; Lymphocytes # (A) 1.1 k/uL (1.0-4.8); Lymphocytes % (A) 13 %; MCH 28.5 pg (25.0-35.0); MCV 86.5 fL (80.0-100.0); Mean Platelet Volume 7.9; Monocytes # (A) 0.4 k/uL (0-1.0); Monocytes % (A) 5 %; Neutrophils # (A) 6.9 k/uL (1.3-7.7); Neutrophils % (A) 81 %; Platelet Count 254 k/uL (150-450); RBC 2.83 m/uL (3.80-5.40); RDW 15.7 % (11.5-15.5); WBC 8.5 k/uL (3.8-10.6)
[2024-01-13 09:27] LABS: HGB 8.1 gm/dL (11.4-16.0)
--- NOTE | 2024-01-13 11:20 | P.PN ---
Subjective Patient is seen for follow-up for acute kidney injury. She is comfortable with no significant complaints. Maintained on IV fluids. Serum creatinine staying stable around 4 mg/dL. No complaints of shortness of breath. Objective - Vital Signs Vital signs: Vital Signs Temp 98.1 F 01/13/24 08:41 Pulse 87 01/13/24 11:10 Resp 18 01/13/24 11:11 BP 147/78 01/13/24 11:10 Pulse Ox 96 01/13/24 11:11 FiO2 Intake & Output 01/12/24 01/13/24 01/13/24 18:59 06:59 18:59 Intake Total 428 240 Output Total 200 400 Balance 228 -160 Weight 60.6 kg Intake: Oral 118 240 Blood Product 310 Rc As-1 Unit 310 [id number] Output: Urine 200 400 Other: Voiding Method Indwelling Catheter Indwelling Catheter Indwelling Catheter - Exam Patient is awake, comfortable, no acute distress Examination of the heart S1 and S2 Examination of the lungs decreased breath sounds at the bases Abdomen is soft nontender Examination of lower extremities shows 1+ bilateral edema. 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 - Labs CBC & Chem 7: 01/13/24 08:04 01/13/24 08:04 Labs: Abnormal Lab Results - Last 24 Hours (Table) 01/12/24 01/12/24 01/12/24 Range/Units 10:47 11:37 16:18 RBC (3.80-5.40) m/uL Hgb (11.4-16.0) gm/dL Hct (34.0-46.0) % RDW (11.5-15.5) % Chloride (98-107) mmol/L Carbon Dioxide (22-30) mmol/L BUN (7-17) mg/dL Creatinine (0.52-1.04) mg/dL Glucose (74-99) mg/dL POC Glucose (mg/dL) 199 H 178 H (70-110) mg/dL Calcium (8.4-10.2) mg/dL Total Protein (6.3-8.2) g/dL Albumin (3.5-5.0) g/dL Crossmatch See Detail 01/12/24 01/13/24 01/13/24 Range/Units 20:16 06:17 08:04 RBC (3.80-5.40) m/uL Hgb (11.4-16.0) gm/dL Hct (34.0-46.0) % RDW (11.5-15.5) % Chloride 113 H (98-107) mmol/L Carbon Dioxide 19 L (22-30) mmol/L BUN 45 H (7-17) mg/dL Creatinine 4.11 H (0.52-1.04) mg/dL Glucose 121 H (74-99) mg/dL POC Glucose (mg/dL) 199 H 130 H (70-110) mg/dL Calcium 6.8 L (8.4-10.2) mg/dL Total Protein 5.0 L (6.3-8.2) g/dL Albumin 2.1 L (3.5-5.0) g/dL Crossmatch 01/13/24 Range/Units 08:04 RBC 2.83 L (3.80-5.40) m/uL Hgb 8.1 L D (11.4-16.0) gm/dL Hct 24.5 L (34.0-46.0) % RDW 15.7 H (11.5-15.5) % Chloride (98-107) mmol/L Carbon Dioxide (22-30) mmol/L BUN (7-17) mg/dL Creatinine (0.52-1.04) mg/dL Glucose (74-99) mg/dL POC Glucose (mg/dL) (70-110) mg/dL Calcium (8.4-10.2) mg/dL Total Protein (6.3-8.2) g/dL Albumin (3.5-5.0) g/dL Crossmatch Microbiology - Last 24 Hours (Table) 01/07/24 07:28 Blood Culture - Final Blood 01/09/24 15:19 CSF Gram Stain - Preliminary Cerebral Spinal Fluid CSF Culture - Preliminary 01/11/24 14:15 Gram Stain - Preliminary Shoulder - Left Assessment and Plan Assessment: 1. Acute kidney injury, ATN secondary to severe anemia and sepsis. Currently with indwelling Rodriguez catheter. UA shows 2+ protein large blood and WBCs 69. Ultrasound shows no hydronephrosis on the right kidney. Left kidney could not be visualized due to patient position. CT scan shows no evidence of obstructive uropathy. Maintained on IV fluids. 2. Acute blood loss anemia, most likely GI bleed. Being transfused packed RBCs. Iron studies show significant iron deficiency however at this time in view of positive blood cultures I will hold the IV iron until 2 to 3 days of being on antibiotics. 3. Hyperkalemia on admission associated with acute kidney injury, currently improved 4. Hypertension with blood pressure currently on the lower side. 5. UTI with urine culture growing E. coli 6. Bacteremia with blood cultures growing MSSA 7. Mild volume overload Plan: DC IV fluids Repeat labs in a.m. Continue to avoid nephrotoxic agents.
[2024-01-13 11:30] LABS: Glucose,Whole Blood 187 mg/dL (70-110)
--- NOTE | 2024-01-13 11:37 | XR ---
EXAMINATION TYPE: XR chest 1V DATE OF EXAM: 01/13/2024 CLINICAL HISTORY: Cough. TECHNIQUE: Single AP portable upright view of the chest is obtained. COMPARISON: Chest x-ray from January 04, 2024 FINDINGS: There are new bibasilar opacities silhouetting both hemidiaphragms. Upper lungs are clear. Cardiac silhouette size stable and upper limits of normal. The deformity to left humeral head is red emonstrated. IMPRESSION: New small bilateral pleural effusions and associated bibasilar atelectasis and/or acute i nfiltrates.
[2024-01-13] MEDS: ONDANSETRON 4 MG/2 ML VIAL IVP PRN (11:39)
--- NOTE | 2024-01-13 11:49 | P.PN ---
Subjective Progress Note Date: 01/13/24 78-year-old female patient got transferred to the intensive care unit because of ongoing seizure activity and concerns for status epilepticus. The patient was hospitalized few days back with altered mentation and confusion. She apparently has history of dementia possible evidence status of his dementia and she has some baseline confusion. It was noted that her confusion was progressively getting worse and she also had diminished appetite also. In the emergency department, the patient was hemodynamically stable. Initial CAT scan of the brain was negative for any acute intracranial process and the patient had chronic appearing patchy periventricular white matter ischemic changes and atrophy. Chest x-ray was normal. X-ray of the left shoulder was done and the patient showed a large bony defect in the left humeral head articular space and the shoulder was quite swollen. This was suspected to be related to a traumatic injury. Pelvic x-ray showed also superior inferior pubic rami fracture on the right and subacute incomplete healed fractures and the superior pubic ramus was displaced by around 9 mm. Blood work showed leukocytosis with a white cell count of 19.3 with a hemoglobin of 7.4 and she has chronic baseline anemia. The patient also had a sodium level of 133 with a potassium level 5.4 and a chloride of 97 with a BUN of 63 and a creatinine of 2.9. Calcium was also elevated at 11.8. No significant abnormalities in liver function test. The viral screen was negative. UA was suggestive of an underlying infection and UTI was suspected. The patient also had some troponin leak. As such, the patient was admitted to the hospital for further workup and treatment. She was seen by nephrology and the patient demonstrated progressive worsening in renal function and the creatinine delfina from 2.9 up to 4.05 and this morning is at 3.96. The white cell count dropped down to 9.3. Hemoglobin has been stable at 8.4 from today. The urine culture was positive for E. coli and this was an ESBL producing microorganism in the blood culture was also positive for Staph aureus/MSSA and this was identified on 2 separate blood cultures. Infectious disease was consulted and the patient was placed on IV cefazolin. Based on the staphylococcal growth in the blood and the joint swelling in the left shoulder, there is a concern for septic arthritis. MRI of the left shoulder was ordered and orthopedic consultation was also requested. The CT scan of the abdomen and pelvis showed no acute intra-abdominal process without any obstructive uropathy or calculus. Subacute fractures of the right inferior and superior rami/pubic rami as well as the right sacrum was noted. This afternoon, the patient was noted to have eye twitching and gaze deviation to the left and seizure-like activity. Subsequently, in the morning, the patient continued to have left gaze deviation with eye twitching and seizure- like tonic-clonic seizure activity as reported by the nursing staff that lasted less than a minute. The patient continued to have recurrent seizures following that lasting up to 5 minutes with the left gaze deviation and generalized clonic activity. The patient had been given a total of 2 mg of IV Ativan during the first episode another 2 mg of Ativan during the second episode bringing her up to a total of 4 mg. She was loaded with Keppra 500 mg IV and dose adjustment wa s done based on the underlying renal failure. Noted the patient does not have any history of seizure activity or seizure disorder. She is currently afebrile. I was asked to move the patient to the intensive care unit for further monitoring. A repeat CAT scan of the brain was done and it showed atrophy with chronic appearing periventricular white matter ischemic changes and the findings were essentially stable. At this point in time, the patient is on 2 L of oxygen by nasal cannula. The patient remains on IV cefazolin. On today's evaluation of 01/10/2024, the patient is being seen for a follow-up. Her neurostatus is improved slightly compared to yesterday and the patient was able to answer some simple commands. No focal neurological deficits. No facial asymmetry. Pupils are equal reactive to light. Lumbar puncture was done yesterday and the patient has only 1 nucleated cell without any significant elevation in the CSF protein. Cultures are still negative. This is essentially negative LP . There is CSF RBC was 17. CSF glucose was 107. No neck stiffness. No further seizure activity and the patient is currently on Vimpat 100 mg IV every 12 hours. MRI of the brain is to be done today. EEG was completed and showed encephalopathy and there was no indication for an acute or ongoing seizure activity. The plan for now is to proceed with an MRI of the brain and the patient is also going to need an MRI of the shoulder with concerns of septic arthritis. Ultrasound Doppler of the left upper extremity was also done today. This was done essentially to rule out DVT and the results are still pending for now. The patient is afebrile. The patient is hemodynamically s table. Pulse ox is 99% on 2 L of oxygen by nasal cannula. Remains on normal saline at rate of 75 cc an hour. ID is on the case. The patient was growing ESBL producing E. coli in the urine however she did not have any urinary symptoms and the repeat urine cultures have been negative. Based on that, no further antibiotic coverage was recommended in that regard. On today's evaluation of 01/11/2024, the patient is being seen for a follow-up. She is alert and communicating at this point in time. She was transferred out of the intensive care unit. The no further seizure activity and the patient remains on Vimpat. Lumbar puncture was negative. No neck stiffness. No focal neurological deficits. The patient remains on IV cefazolin regarding her staphylococcal septicemia. The patient also had a MRI of the brain that showed no acute abnormalities. MRI of the shoulder was quite abnormal and the patient was Considered to have possibility of septic arthritis. The patient had severe osseous and periarticular and surrounding soft tissue edema along with severe bone loss particularly in the articular surface of the head and underlying joints/bursa effusion as well as located fluid in the lateral deltoid shelf was seen measuring 4.3 cm in size and this made the possibility of septic arthritis more concerning. Based on that, the patient was taken to the operating room and the patient underwent a arthrotomy of the left shoulder along with irrigation debridement and incision and drainage of the left septic shoulder. The patient was found to have significant destruction involving the left humeral head. The bone was debrided. There was thickened synovial tissue that was excised. The joint was then copiously irrigated. A deep drain was placed into the glenohumeral joint. The skin was sutured with appropriate dressing was applied and the patient was brought back to the medical floor. Currently she is on 2 L of oxygen nasal cannula with a pulse ox of 92%. The blood work from today shows a WBC count 9.2, hemoglobin 7.3 and a platelet count of 257. BUN is at 49 with a creatinine of 4.06 and a sodium levels at 138. No other significant events overnight. MRI of the brain was nonspecific and showed atrophy and chronic appearing periventricular white matter ischemic changes. On 01/12/2024, the patient is being seen for a follow-up. Patient is doing well. No specific complaints. She underwent an orthopedic intervention which included arthrotomy of the left shoulder and irrigation debridement and incision and drainage of a left septic joint/arthritis. The cultures are still negative for now. No significant pain. Left upper extremity remains slightly swollen. The patient has no altered mentation. No seizure activity. She is calm and comfortable. She has dropped her hemoglobin down to 6.4 and the patient will be receiving unit of packed RBC. She continues to have chronic kidney disease with a BUN of 46 and a creatinine of 4.05 and her renal function remained stable. Sodium level is 138, bicarb is 19 And anion gap is at 7. The patient remains on IV cefazolin for now. The patient is also on oxygen at 2 L and she was transitioned to room air oxygen. Her pulse ox remains around 97%. No respiratory distress. No focal neurological deficits. On today's evaluation of 01/13/2024, the patient is being seen for a follow-up. The patient has no specific complaints. The left shoulder was debrided and the Gram stain and culture still negative and the patient remains on IV cefazolin. Renal function remained stable with a BUN of 45 with a creatinine of 4.1. No seizure activity. Hemodynamically stable. Remains on oxygen at 2 L/min nasal c annula with a pulse ox of 96%. White cell count of 8.5 with a hemoglobin of 8.1. No other new complaints otherwise for now. Resting comfortably in bed. Nephrology on the case regarding care acute on chronic kidney disease. ID is on the case. Orthopedic surgery is on the case. Neuro is on the case. The patient is currently on Vimpat. She has generalized global weakness yet no focal neurological deficit and no seizure activity. Noted the edema. No encephalopathy. Objective - Vital Signs Vital signs: Vital Signs Temp 98.1 F 01/13/24 08:41 Pulse 91 01/13/24 08:41 Resp 18 01/13/24 08:41 BP 156/84 01/13/24 08:41 Pulse Ox 96 01/13/24 08:41 FiO2 Intake & Output 01/12/24 01/13/24 01/13/24 18:59 06:59 18:59 Intake Total 428 240 Output Total 200 400 Balance 228 -160 Weight 60.6 kg Intake: Oral 118 240 Blood Product 310 Rc As-1 Unit 310 [id number] Output: Urine 200 400 Other: Voiding Method Indwelling Catheter Indwelling Catheter - Exam General: appears stated age.,, Comfortable the patient is currently on 2 L of oxygen by nasal cannula. Derm: Skin warm and dry, normal coloration for ethnicity. Head: Atraumatic, normocephalic and symmetric. Eyes: no lid lag, and anicteric sclera, EOMI Mouth: no lip lesions, mucus membranes moist Cardiovascular: regular rate and rhythm with normal S1S2, systolic murmur, positive posterior tibial pulses bilaterally, and cap refill < 2 seconds. Lungs: Respirations even, regular, and unlabored on room air. Lungs CTA bilaterally, no rhonchi, no rales, no wheezing, and no accessory muscle usage. Abdominal: soft, nontender to palpation, no guarding, no appreciable organomegaly Ext: Left upper extremity in a sling, left arm edema, along with postsurgical changes in the left upper extremity with a drain and the dressing is dry and not soaked at this point in time. Neuro: Lethargic is more awake compared to yesterday. Able to move her arms and legs without any limitation. Generalized profound weakness in all 4 extremities. Pupils are equal reactive to light. No facial asymmetry. Positive cough and gag. Responding to simple commands and answering simple questions. Psych: Unable to assess - Labs CBC & Chem 7: 01/13/24 08:04 01/13/24 08:04 Labs: Abnormal Lab Results - Last 24 Hours (Table) 01/12/24 01/12/24 01/12/24 Range/Units 08:20 10:47 11:37 RBC (3.80-5.40) m/uL Hgb (11.4-16.0) gm/dL Hct (34.0-46.0) % RDW (11.5-15.5) % Lymphocytes # 0.9 L (1.0-4.8) k/uL Chloride (98-107) mmol/L Carbon Dioxide (22-30) mmol/L BUN (7-17) mg/dL Creatinine (0.52-1.04) mg/dL Glucose (74-99) mg/dL POC Glucose (mg/dL) 199 H (70-110) mg/dL Calcium (8.4-10.2) mg/dL Total Protein (6.3-8.2) g/dL Albumin (3.5-5.0) g/dL Crossmatch See Detail 01/12/24 01/12/24 01/13/24 Range/Units 16:18 20:16 06:17 RBC (3.80-5.40) m/uL Hgb (11.4-16.0) gm/dL Hct (34.0-46.0) % RDW (11.5-15.5) % Lymphocytes # (1.0-4.8) k/uL Chloride (98-107) mmol/L Carbon Dioxide (22-30) mmol/L BUN (7-17) mg/dL Creatinine (0.52-1.04) mg/dL Glucose (74-99) mg/dL POC Glucose (mg/dL) 178 H 199 H 130 H (70-110) mg/dL Calcium (8.4-10.2) mg/dL Total Protein (6.3-8.2) g/dL Albumin (3.5-5.0) g/dL Crossmatch 01/13/24 01/13/24 Range/Units 08:04 08:04 RBC 2.83 L (3.80-5.40) m/uL Hgb 8.1 L D (11.4-16.0) gm/dL Hct 24.5 L (34.0-46.0) % RDW 15.7 H (11.5-15.5) % Lymphocytes # (1.0-4.8) k/uL Chloride 113 H (98-107) mmol/L Carbon Dioxide 19 L (22-30) mmol/L BUN 45 H (7-17) mg/dL Creatinine 4.11 H (0.52-1.04) mg/dL Glucose 121 H (74-99) mg/dL POC Glucose (mg/dL) (70-110) mg/dL Calcium 6.8 L (8.4-10.2) mg/dL Total Protein 5.0 L (6.3-8.2) g/dL Albumin 2.1 L (3.5-5.0) g/dL Crossmatch Microbiology - Last 24 Hours (Table) 01/07/24 07:28 Blood Culture - Final Blood 01/09/24 15:19 CSF Gram Stain - Preliminary Cerebral Spinal Fluid CSF Culture - Preliminary 01/11/24 14:15 Gram Stain - Preliminary Shoulder - Left Assessment and Plan Plan: New onset seizure with status epilepticus controlled on Vimpat and the patient has not had any seizure episodes over the past 24 hours. EEG showing encephalopathy without any ongoing seizure activity. The patient is free of any seizure activity. MRI of the brain showed chronic periventricular white matter disease and atrophy. No acute abnormalities. Mental status is back to normal and the patient remains on Vimpat without any seizure activity. MSSA bacteremia/sepsis currently on IV cefazolin, no fevers. No hemodynamic instability. Left glenohumeral joint septic arthritis and subdeltoid abscess. The patient had left shoulder swelling, along with pain.. The patient has left humeral head collapse, consider AVN versus neuropathic arthropathy. Possibility of a septic arthritis cannot be ruled out. Fractures could be related to seizures and the patient is currently wearing a sling and orthopedic surgery is on the case. MRI of the shoulder was indicative of septic arthritis and the patient underwent arthrotomy and debridement and irrigation of the left shoulder along with incision and drainage of the left septic shoulder joint. The patient is currently postop day # 2 Pelvic fracture related to seizure/fall. Pelvic fracture was present approximately 6 weeks ago, and the patient has superior and inferior pubic rami fracture on the right Acute kidney injury, creatinine remains stable and unchanged, creatinine is stab le and nephrology on the case Alzheimer's dementia Hypertension Hyperlipidemia Hypothyroidism [id number] diabetes mellitus Iron deficiency anemia History of recurrent urine tract infection most recent infections with E. coli Abnormal troponins, consider type II myocardial ischemia, echo of the heart shows a preserved LV function with a normal ejection fraction of 55 to 60% History of Parkinson's disease DNR/DNI CODE STATUS Plan Respiratory status is stable patient is currently on 2 L of O2 nasal cannula Provide the patient is still spirometer Neurologic condition is stable and the patient is awake and alert and communicating. No altered mentation at this point in time. Left shoulder arthrotomy and debridement and drainage of the subdeltoid abscess was done. Patient is postop day # 2. Awaiting cultures. The primary cultures are still negative Patient will be kept on IV cefazolin pending further cultures from the left shoulder Continue Vimpat 100 mg IV twice daily Ativan as needed for breakthrough seizures EEG was noted and is consistent with encephalopathy Lumbar puncture, negative MRI of the brain, showing no acute abnormalities MRI of the shoulder, completed and the results were noted Orthopedic surgery is on the case IV fluids normal saline at rate of 75 cc an hour Resume home medications and assess swallow Nephrology regarding the acute kidney injury, keep Rodriguez catheter in place, likely ATN knowing that the baseline creatinine was stable on 01/06/2024 and 0.9. No hydronephrosis. Avoid nephrotoxic agents. DNR/DNI CODE STATUS Will follow
--- NOTE | 2024-01-13 12:15 | P.PN ---
Subjective Progress Note Date: 01/13/24 Hospital course: Patient is a very pleasant 78-year-old female with a past medical history of Alzheimer's dementia with baseline mentation alert and oriented x 1-2, hypertension, hyperlipidemia, hypothyroidism, [id number] diabetes mellitus, iron deficiency anemia, recurrent UTIs, and history of prior pelvic fracture with chronic pelvic pain. She presented to the emergency department with a chief complaint of worsening confusion. Patient's reports that his is normally confused but he has noticed worsening confusion and a decreased appetite over the past few days. She underwent full evaluation in the emergency department. Vital signs upon arrival show blood pressure 132/63, heart rate 96, respiratory rate 20, temp 99.6 F, and SpO2 of 100% on room air. EKG completed showing normal sinus rhythm at 98 bpm with no significant T wave or ST abnormalities showing no signs of acute ischemia upon personal review and interpretation. CT brain completed and negative for acute intracranial process with radiology report stating stable chronic appearing patchy periventricular white matter ischemic changes with atrophy. Chest x-ray completed and was negative for acute cardiopulmonary process. X-ray left shoulder completed showing large bony defect in the humeral head articular surface. Pelvis x-ray completed showing known superior and inferior pubic rami fracture on the right reporting these as subacute incompletely healed fractures but reporting the superior pubic ramus fracture has displaced now by 9 mm versus 3 mm previously. Labs were completed and reviewed. CBC showing leukocytosis with a WBC count of 19.3 and hemoglobin of 7.4 (with a baseline hemoglobin of around 7.5). BMP showing hyponatremia with sodium of 133, hyperkalemia with potassium of 5.4, hypochloremia with chloride of 97, and an acute kidney injury with BUN of 62, creatinine 2.93, and GFR of 15 with baseline creatinine of 0.9. Calcium high at 11.8. Liver profile showing no significant abnormalities with the exception of low albumin of 2.9. Initial troponin elevated at 0.251. Urinalysis positive for protein, ketones, blood, leukocyte esterase, greater than 182 RBCs, and 69 WBCs. Influenza A, influenza B, COVID, and RSV were negative. Patient was admitted under our services with consultation to cardiology, nephrology and orthopedic surgery. Troponins trended overnight resulting at 0.251, 0.432, and 0.505. Orthopedic surgery evaluated, recommending conservative measures with use of sling to left upper extremity. Orthopedic team also recommending patient may perform gentle range of motion exercises of left upper extremity as tolerated, remain nonweightbearing to left upper extremity and in regards to pubic rami fracture patient may be weightbearing as tolerated and ambulate with walker with assistance. Renal function continues to worsen. Nephrology also consulted. Patient also found to have MSSA bacteremia. ID also consulted. Currently on IV antibiotics. Source unclear. On 01/09/2024 patient had status epilepticus, did resolve with IV Ativan and IV Keppra. Neurology consulted. Patient transferred to medical ICU. Brain MRI did not show any acute process. Shoulder MRI showed loculated fluid measuring up to 4.3 cm concerning for septic arthritis. Started on antiepileptics. Mental status improved. Now back to floors. Patient is status post shoulder surgery. On 01/13/2024 patient also having large coffee- ground emesis. General surgery consulted. Subjective: Patient seen and examined at bedside. Having large coffee-ground emesis. Physical exam: Vital signs reviewed and stable. General: appears stated age, not in acute distress Derm: Skin warm and dry, normal coloration for ethnicity. Head: Atraumatic, normocephalic and symmetric. Eyes: no lid lag, and anicteric sclera, EOMI Mouth: no lip lesions, mucus membranes moist Cardiovascular: regular rate and rhythm with normal S1S2, systolic murmur, positive posterior tibial pulses bilaterally, and cap refill < 2 seconds. Lungs: Respirations even, regular, and unlabored on room air. Lungs CTA bilaterally, no rhonchi, no rales, no wheezing, and no accessory muscle usage. Abdominal: soft, nontender to palpation, no guarding, no appreciable organomegaly Ext: Unable to move left upper extremity due to edema and pain, dressing clean, dry, intact, drain in place Neuro: CN II to XII grossly intact Psych: Alert, oriented x 3 Assessment and Plan of Care: Patient is severely ill, needs close monitoring. Prognosis guarded. Acute GI bleed Large coffee-ground emesis On IV pantoprazole 40 twice daily General surgery consulted Repeat hemoglobin in the afternoon Has received 2 units of PRBCs during this admission MSSA bacteremia Left shoulder septic arthritis, status post surgery UTI unlikely Nonoliguric, acute kidney injury, stable Acute on chronic Iron Deficiency anemia, status post 2 unit of PRBCs Hyperkalemia, resolved Hypokalemia, resolved Hypocalcemia, resolved Bibasilar effusions -She is status post surgical intervention for left shoulder septic arthritis -Nephrology note reviewed, on oral sodium bicarb, IV fluids discontinued, strict I's and O's, maintain Rodriguez catheter, avoid IV iron -ID following, continue IV cefazolin 1 g every 24 hours -Repeat blood cultures no growth to date -Echocardiogram does not show any valvular vegetation -Patient to remain on continuous telemetry monitoring. -Continue ferrous sulfate 325 mg daily, and ascorbic acid, hold off IV iron IV fluids have been discontinued, monitor respiratory function, if worsening will give IV Lasix. Status post Status epilepticus Discussed management with neurology, continue oral Vimpat 100 twice daily, signed off IV Ativan 2 mg every 6 hours as needed for seizures Seizure precautions Elevated troponins, type II NSTEMI -Chest pain-free, cardiology signed off -Continue aspirin 81 mg daily and atorvastatin 40 mg daily. -Patient to remain on continuous telemetry monitoring Acute metabolic encephalopathy, possibly in the setting of seizures Alzheimer's dementia Parkinson's disease -Continue daily medication regimen with carbidopa levodopa 25/100 mg tablets 4 times daily. Left shoulder and pelvic pain Right-sided superior and inferior pubic rami fractures, chronic Left shoulder humeral head collapse -Fractures possibly in the setting of seizures -Orthopedic surgery consulted, recommending conservative measures with use of sling to left upper extremity. Orthopedic team also recommending patient may perform gentle range of motion exercises of left upper extremity as tolerated, remain nonweightbearing to left upper extremity and in regards to pubic rami fracture patient may be weightbearing as tolerated and ambulate with walker with assistance. -Left upper extremity Doppler negative DVT Type II non-insulin dependent diabetes mellitus -Continue to hold metformin -Continue sliding scale insulin, monitor for hypoglycemia Hypothyroidism -Continue daily medication regimen with levothyroxine 100 mcg daily. -TSH 1.200 Data and imaging reviewed: Hemoglobin 8.1, creatinine 4.11, glucose range between 12 03- 87 Chest x-ray shows bilateral bibasilar infiltrates, likely effusions CODE STATUS: DNR/DNI DVT prophylaxis: SCDs Anticipated discharge date: Clinical course to determine Anticipated discharge place: Clinical course to determine Objective - Vital Signs Vital signs: Vital Signs Temp 98.1 F 01/13/24 08:41 Pulse 87 01/13/24 11:10 Resp 18 01/13/24 11:11 BP 147/78 01/13/24 11:10 Pulse Ox 96 01/13/24 11:11 FiO2 Intake & Output 01/12/24 01/13/24 01/13/24 18:59 06:59 18:59 Intake Total 428 240 Output Total 200 400 Balance 228 -160 Weight 60.6 kg Intake: Oral 118 240 Blood Product 310 Rc As-1 Unit 310 [id number] Output: Urine 200 400 Other: Voiding Method Indwelling Catheter Indwelling Catheter Indwelling Catheter - Labs CBC & Chem 7: 01/13/24 08:04 01/13/24 08:04 Labs: Abnormal Lab Results - Last 24 Hours (Table) 01/12/24 01/12/24 01/12/24 Range/Units 10:47 16:18 20:16 RBC (3.80-5.40) m/uL Hgb (11.4-16.0) gm/dL Hct (34.0-46.0) % RDW (11.5-15.5) % Chloride (98-107) mmol/L Carbon Dioxide (22-30) mmol/L BUN (7-17) mg/dL Creatinine (0.52-1.04) mg/dL Glucose (74-99) mg/dL POC Glucose (mg/dL) 178 H 199 H (70-110) mg/dL Calcium (8.4-10.2) mg/dL Total Protein (6.3-8.2) g/dL Albumin (3.5-5.0) g/dL Crossmatch See Detail 01/13/24 01/13/24 01/13/24 Range/Units 06:17 08:04 08:04 RBC 2.83 L (3.80-5.40) m/uL Hgb 8.1 L D (11.4-16.0) gm/dL Hct 24.5 L (34.0-46.0) % RDW 15.7 H (11.5-15.5) % Chloride 113 H (98-107) mmol/L Carbon Dioxide 19 L (22-30) mmol/L BUN 45 H (7-17) mg/dL Creatinine 4.11 H (0.52-1.04) mg/dL Glucose 121 H (74-99) mg/dL POC Glucose (mg/dL) 130 H (70-110) mg/dL Calcium 6.8 L (8.4-10.2) mg/dL Total Protein 5.0 L (6.3-8.2) g/dL Albumin 2.1 L (3.5-5.0) g/dL Crossmatch 01/13/24 Range/Units 11:25 RBC (3.80-5.40) m/uL Hgb (11.4-16.0) gm/dL Hct (34.0-46.0) % RDW (11.5-15.5) % Chloride (98-107) mmol/L Carbon Dioxide (22-30) mmol/L BUN (7-17) mg/dL Creatinine (0.52-1.04) mg/dL Glucose (74-99) mg/dL POC Glucose (mg/dL) 187 H (70-110) mg/dL Calcium (8.4-10.2) mg/dL Total Protein (6.3-8.2) g/dL Albumin (3.5-5.0) g/dL Crossmatch Microbiology - Last 24 Hours (Table) 01/07/24 07:28 Blood Culture - Final Blood 01/09/24 15:19 CSF Gram Stain - Preliminary Cerebral Spinal Fluid CSF Culture - Preliminary 01/11/24 14:15 Gram Stain - Preliminary Shoulder - Left
--- NOTE | 2024-01-13 13:20 | P.PN ---
Subjective Progress Note Date: 01/13/24 Principal diagnosis: Reason for follow-up is MSSA bacteremia Patient is a 78-year-old female past medical history pertinent for diabetes mellitus hypertension hyperlipidemia dementia and depression brought into the hospital for evaluation of worsening dementia/confusion noticed to have positive UA and did have MSSA bacteremia also abnormality to the left humeral head on the x-ray.Patient is status post Arthrotomy left shoulder/irrigation and debridement/incision and drainage left septic shoulder completed on 01/11/2024. On today's evaluation that is 01/13/2024,the patient remains to be afebrile, patient is on 3 L nasal cannula supplemental oxygen and denies any shortness of breath no chest pain or cough.Patient denies having any nausea or vomiting, no abdominal pain and no diarrhea has been reported pain to the left shoulder controlled. White count is 8.5, creatinine is 4.11 blood culture repeat negative OR cultures pending Objective - Vital Signs Vital signs: Vital Signs Temp 98.1 F 01/13/24 08:41 Pulse 87 01/13/24 11:10 Resp 18 01/13/24 11:11 BP 147/78 01/13/24 11:10 Pulse Ox 96 01/13/24 11:11 FiO2 Intake & Output 01/12/24 01/13/24 01/13/24 18:59 06:59 18:59 Intake Total 428 240 Output Total 200 400 Balance 228 -160 Weight 60.6 kg Intake: Oral 118 240 Blood Product 310 Rc As-1 Unit 310 [id number] Output: Urine 200 400 Other: Voiding Method Indwelling Catheter Indwelling Catheter Indwelling Catheter - Exam GENERAL DESCRIPTION: An elderly female lying in bed in no distress RESPIRATORY SYSTEM: Unlabored breathing , decreased breath sounds at bases HEART: S1 S2 regular rate and rhythm , ABDOMEN: Soft , no tenderness EXTREMITIES: No edema feet - Labs CBC & Chem 7: 01/13/24 08:04 01/13/24 08:04 Labs: Abnormal Lab Results - Last 24 Hours (Table) 01/12/24 01/12/24 01/12/24 Range/Units 10:47 16:18 20:16 RBC (3.80-5.40) m/uL Hgb (11.4-16.0) gm/dL Hct (34.0-46.0) % RDW (11.5-15.5) % Chloride (98-107) mmol/L Carbon Dioxide (22-30) mmol/L BUN (7-17) mg/dL Creatinine (0.52-1.04) mg/dL Glucose (74-99) mg/dL POC Glucose (mg/dL) 178 H 199 H (70-110) mg/dL Calcium (8.4-10.2) mg/dL Total Protein (6.3-8.2) g/dL Albumin (3.5-5.0) g/dL Crossmatch See Detail 01/13/24 01/13/24 01/13/24 Range/Units 06:17 08:04 08:04 RBC 2.83 L (3.80-5.40) m/uL Hgb 8.1 L D (11.4-16.0) gm/dL Hct 24.5 L (34.0-46.0) % RDW 15.7 H (11.5-15.5) % Chloride 113 H (98-107) mmol/L Carbon Dioxide 19 L (22-30) mmol/L BUN 45 H (7-17) mg/dL Creatinine 4.11 H (0.52-1.04) mg/dL Glucose 121 H (74-99) mg/dL POC Glucose (mg/dL) 130 H (70-110) mg/dL Calcium 6.8 L (8.4-10.2) mg/dL Total Protein 5.0 L (6.3-8.2) g/dL Albumin 2.1 L (3.5-5.0) g/dL Crossmatch 01/13/24 Range/Units 11:25 RBC (3.80-5.40) m/uL Hgb (11.4-16.0) gm/dL Hct (34.0-46.0) % RDW (11.5-15.5) % Chloride (98-107) mmol/L Carbon Dioxide (22-30) mmol/L BUN (7-17) mg/dL Creatinine (0.52-1.04) mg/dL Glucose (74-99) mg/dL POC Glucose (mg/dL) 187 H (70-110) mg/dL Calcium (8.4-10.2) mg/dL Total Protein (6.3-8.2) g/dL Albumin (3.5-5.0) g/dL Crossmatch Microbiology - Last 24 Hours (Table) 01/07/24 07:28 Blood Culture - Final Blood 01/09/24 15:19 CSF Gram Stain - Preliminary Cerebral Spinal Fluid CSF Culture - Preliminary 01/11/24 14:15 Gram Stain - Preliminary Shoulder - Left Assessment and Plan (1) MSSA bacteremia Current Visit: Yes Status: Acute Code(s): R78.81 - BACTEREMIA; B95.61 - METHICILLIN SUSCEP STAPH INFCT CAUSING DIS CLASSD [id number] SNOMED Code(s): 846197546 (2) Septic arthritis of shoulder, left Current Visit: Yes Status: Acute Code(s): M00.9 - PYOGENIC ARTHRITIS, UNSPECIFIED SNOMED Code(s): 49932239 Plan: 1-1patient is a 78-year-old female with multiple comorbidities presen ting to the hospital with confusion and mental status changes did have a low- grade fever elevated white count and now with evidence of MSSA bacteremia source is likely left shoulder which was large bony defect of the humeral head articular surface which was not seen on October 30, 2023 x-ray as currently no other obvious focus for this bacteremia, MRI of the left shoulder is currently pending 2-blood cultures repeated on 01/06/2024 as well as 01/07/2024 has been negative 3-patient is also growing ESBL E. coli in the urine however the patient denies urinary symptoms question of possible asymptomatic bacteriuria, the patient repeat urine cultures are negative, no need for antibiotics 4-patient MRI suspicious for septic arthritis of the glenohumeral joint on the left side patient is status post arthrotomy left shoulder/irrigation and debridement/incision and drainage left septic shoulder completed on 01/11/2024 5patient is afebrile the patient white count normal, patient to continue with t he cefazolin and monitor clinical course closely Dictation was produced using [employer] dictation software. please excuse any grammatical, word or spelling errors. Time with Patient: Less than 30
[2024-01-13 16:36] LABS: Glucose,Whole Blood 138 mg/dL (70-110)
[2024-01-13 16:57] LABS: HCT 23.9 % (34.0-46.0); HGB 7.1 gm/dL (11.4-16.0); Hypochromasia Slight; MCH 25.6 pg (25.0-35.0); MCHC 29.7 g/dL (31.0-37.0); MCV 86.2 fL (80.0-100.0); Mean Platelet Volume 7.5; Platelet Count 249 k/uL (150-450); RBC 2.77 m/uL (3.80-5.40); RDW 15.8 % (11.5-15.5); WBC 9.2 k/uL (3.8-10.6)
--- NOTE | 2024-01-13 17:29 | P.GSCN ---
History of Present Illness Consult date: 01/13/24 Reason for Consult: concern for hematemesis History of present illness: Patient is a 78-year-old female currently admitted for left shoulder septic arthritis status post washout from general surgery is consulted due to concern for hematemesis. Per patient she had an acute onset of hematemesis the day of consultation. She states that she had 3 large volume emesis that were dark and black in nature. Denies any prior episodes such as this. No current abdominal pain or heartburn. She states that she has not had further emesis since the o riginal episode. No lightheadedness or dizziness. Admits to flatus and bowel movement yesterday. No fevers or chills. No shortness of breath or chest pain. Denies any prior upper endoscopic evaluation. Review of Systems Negative except for as stated above Past Medical History Past Medical History: Dementia, Diabetes Mellitus, Hyperlipidemia, Hypertension, Thyroid Disorder History of Any Multi-Drug Resistant Organisms: None Reported Year Discovered:: 01/04/24 MDRO Source:: Urine Past Surgical History: Unable to Obtain Past Anesthesia/Blood Transfusion Reactions: No Reported Reaction Past Psychological History: Depression Smoking Status: Never smoker Past Alcohol Use History: None Reported Past Drug Use History: None Reported - Past Family History Brother(s) Additional Family Medical History / Comment(s): Unable to obtain due to patient 's underlying dementia Medications and Allergies Home Medications Medication Instructions Recorded Confirmed Type ARIPiprazole 5 mg PO DAILY 07/27/22 01/04/24 History Acetaminophen Tab [Tylenol] 500 mg PO Q6H PRN 07/27/22 01/04/24 History Alendronate Sodium 70 mg PO CALABRESE 07/27/22 01/04/24 History Aspirin EC [Ecotrin Low Dose] 81 mg PO DAILY 07/27/22 01/04/24 History Citalopram Hydrobromide 20 mg PO DAILY 07/27/22 01/04/24 History [Citalopram HBr] Cyanocobalamin (Vitamin B-12) 1,000 mcg PO DAILY 07/27/22 01/04/24 History [Vitamin B-12] Levothyroxine Sodium 100 mcg PO DAILY 07/27/22 01/04/24 History Simvastatin [Zocor] 80 mg PO DAILY 07/27/22 01/04/24 History metFORMIN HCL [Glucophage] 500 mg PO TID 07/27/22 01/04/24 History Carbidopa-Levodopa 25-100 mg 1 tab PO QID 10/30/23 01/04/24 History [Sinemet 25-100 mg] Ferrous Sulfate [Feosol] 325 mg PO DAILY 01/04/24 01/04/24 History Furosemide [Lasix] 20 mg PO DAILY 01/04/24 01/04/24 History Allergies Allergy/AdvReac Type Severity Reaction Status Date / Time peanut AdvReac "Watery Verified 01/11/24 12:36 eyes" Surgical - Exam Vital Signs Temp Pulse Resp Pulse Ox 99.6 F 98 17 98 01/04/24 08:55 01/04/24 08:55 01/04/24 08:55 01/04/24 08:55 Gen: NAD, resting comfortably Pulm: non-labored respirations Abd: soft, non-tender, non-distended, No guarding/rebound/rigidity Extrem: edema of LUE seen. JUAN intact with serosang output. Results - Labs 01/13/24 16:03 01/13/24 08:04 Abnormal Lab Results - Last 24 Hours (Table) 01/12/24 01/12/24 01/13/24 Range/Units 10:47 20:16 06:17 RBC (3.80-5.40) m/uL Hgb (11.4-16.0) gm/dL Hct (34.0-46.0) % MCHC (31.0-37.0) g/dL RDW (11.5-15.5) % Chloride (98-107) mmol/L Carbon Dioxide (22-30) mmol/L BUN (7-17) mg/dL Creatinine (0.52-1.04) mg/dL Glucose (74-99) mg/dL POC Glucose (mg/dL) 199 H 130 H (70-110) mg/dL Calcium (8.4-10.2) mg/dL Total Protein (6.3-8.2) g/dL Albumin (3.5-5.0) g/dL Crossmatch See Detail 01/13/24 01/13/24 01/13/24 Range/Units 08:04 08:04 11:25 RBC 2.83 L (3.80-5.40) m/uL Hgb 8.1 L D (11.4-16.0) gm/dL Hct 24.5 L (34.0-46.0) % MCHC (31.0-37.0) g/dL RDW 15.7 H (11.5-15.5) % Chloride 113 H (98-107) mmol/L Carbon Dioxide 19 L (22-30) mmol/L BUN 45 H (7-17) mg/dL Creatinine 4.11 H (0.52-1.04) mg/dL Glucose 121 H (74-99) mg/dL POC Glucose (mg/dL) 187 H (70-110) mg/dL Calcium 6.8 L (8.4-10.2) mg/dL Total Protein 5.0 L (6.3-8.2) g/dL Albumin 2.1 L (3.5-5.0) g/dL Crossmatch 01/13/24 01/13/24 Range/Units 16:03 16:30 RBC 2.77 L (3.80-5.40) m/uL Hgb 7.1 L (11.4-16.0) gm/dL Hct 23.9 L (34.0-46.0) % MCHC 29.7 L (31.0-37.0) g/dL RDW 15.8 H (11.5-15.5) % Chloride (98-107) mmol/L Carbon Dioxide (22-30) mmol/L BUN (7-17) mg/dL Creatinine (0.52-1.04) mg/dL Glucose (74-99) mg/dL POC Glucose (mg/dL) 138 H (70-110) mg/dL Calcium (8.4-10.2) mg/dL Total Protein (6.3-8.2) g/dL Albumin (3.5-5.0) g/dL Crossmatch Microbiology - Last 24 Hours (Table) 01/07/24 07:28 Blood Culture - Final Blood Diabetes panel 01/13/24 Range/Units 08:04 Sodium 140 (137-145) mmol/L Potassium 3.7 (3.5-5.1) mmol/L Chloride 113 H (98-107) mmol/L Carbon Dioxide 19 L (22-30) mmol/L BUN 45 H (7-17) mg/dL Creatinine 4.11 H (0.52-1.04) mg/dL Glucose 121 H (74-99) mg/dL Calcium 6.8 L (8.4-10.2) mg/dL AST 15 (14-36) U/L ALT <6 (4-34) U/L Alkaline Phosphatase 85 (38-126) U/L Total Protein 5.0 L (6.3-8.2) g/dL Albumin 2.1 L (3.5-5.0) g/dL Calcium panel 01/13/24 Range/Units 08:04 Calcium 6.8 L (8.4-10.2) mg/dL Albumin 2.1 L (3.5-5.0) g/dL Pituitary panel 01/13/24 Range/Units 08:04 Sodium 140 (137-145) mmol/L Potassium 3.7 (3.5-5.1) mmol/L Chloride 113 H (98-107) mmol/L Carbon Dioxide 19 L (22-30) mmol/L BUN 45 H (7-17) mg/dL Creatinine 4.11 H (0.52-1.04) mg/dL Glucose 121 H (74-99) mg/dL Calcium 6.8 L (8.4-10.2) mg/dL Adrenal panel 01/13/24 Range/Units 08:04 Sodium 140 (137-145) mmol/L Potassium 3.7 (3.5-5.1) mmol/L Chloride 113 H (98-107) mmol/L Carbon Dioxide 19 L (22-30) mmol/L BUN 45 H (7-17) mg/dL Creatinine 4.11 H (0.52-1.04) mg/dL Glucose 121 H (74-99) mg/dL Calcium 6.8 L (8.4-10.2) mg/dL Total Bilirubin 0.3 (0.2-1.3) mg/dL AST 15 (14-36) U/L ALT <6 (4-34) U/L Alkaline Phosphatase 85 (38-126) U/L Total Protein 5.0 L (6.3-8.2) g/dL Albumin 2.1 L (3.5-5.0) g/dL Assessment and Plan Assessment: Patient is a 78-year-old female who is currently admitted with septic arthritis status post washout for whom general surgery is consulted for hematemesis. Plan: -Diet as tolerated -PRN pain and nausea control -IV PPI -Trend Hb -Will monitor for further episodes of hematemesis. No current plan for endoscopic evaluation unless further episodes of hematemesis develop -Care per primary Bishop Sierra MD General Surgery
[2024-01-13 20:07] LABS: Glucose,Whole Blood 140 mg/dL (70-110)
[2024-01-14 05:49] LABS: Glucose,Whole Blood 105 mg/dL (70-110)
--- NOTE | 2024-01-14 09:49 | P.PN ---
Subjective Progress Note Date: 01/14/24 Principal diagnosis: Status post I&D left shoulder Patient was evaluated today at bedside, she is resting in her hospital bed. She is having minimal shoulder pain at this time. The postop bandage is in good position, the Hemovac drain is also in position. Objective - Vital Signs Vital signs: Vital Signs Temp 97.8 F 01/14/24 08:37 Pulse 87 01/14/24 08:37 Resp 18 01/14/24 08:40 BP 147/76 01/14/24 08:37 Pulse Ox 94 L 01/14/24 08:40 FiO2 Intake & Output 01/13/24 01/14/24 01/14/24 18:59 06:59 18:59 Intake Total 240 Output Total 300 400 Balance -300 -160 Intake: Oral 240 Output: Urine 300 400 Other: Voiding Method Indwelling Catheter Indwelling Catheter - Exam Left upper extremity: Postop dressing was removed today at bedside, Steri-Strips are in good position. Hemovac drain was also removed, new bandage was placed.. Swelling is noted throughout the extremity. Her sensory exam to light touch is intact throughout the extremity. Her radial and ulnar pulse are 2+ - Labs CBC & Chem 7: 01/13/24 16:03 01/13/24 08:04 Labs: Abnormal Lab Results - Last 24 Hours (Table) 01/13/24 01/13/24 01/13/24 Range/Units 11:25 16:03 16:30 RBC 2.77 L (3.80-5.40) m/uL Hgb 7.1 L (11.4-16.0) gm/dL Hct 23.9 L (34.0-46.0) % MCHC 29.7 L (31.0-37.0) g/dL RDW 15.8 H (11.5-15.5) % POC Glucose (mg/dL) 187 H 138 H (70-110) mg/dL 01/13/24 Range/Units 20:04 RBC (3.80-5.40) m/uL Hgb (11.4-16.0) gm/dL Hct (34.0-46.0) % MCHC (31.0-37.0) g/dL RDW (11.5-15.5) % POC Glucose (mg/dL) 140 H (70-110) mg/dL Microbiology - Last 24 Hours (Table) 01/09/24 15:19 CSF Gram Stain - Final Cerebral Spinal Fluid CSF Culture - Final Assessment and Plan Assessment: Postoperative day #3 status post I&D left shoulder Multiple medical comorbidities Plan: Monitor surgical dressing PT/OT evaluation Basic range of motion of the left shoulder is okay, avoid excess lifting GI and DVT prophylaxis per primary medical service Continue to follow during hospital stay Will discuss with case management the possibility of a lymphedema compression type sleeve for the left upper extremity tomorrow Time with Patient: Less than 30
--- NOTE | 2024-01-14 11:06 | P.PN ---
Subjective Progress Note Date: 01/14/24 Principal diagnosis: Reason for follow-up is MSSA bacteremia Patient is a 78-year-old female past medical history pertinent for diabetes mellitus hypertension hyperlipidemia dementia and depression brought into the hospital for evaluation of worsening dementia/confusion noticed to have positive UA and did have MSSA bacteremia also abnormality to the left humeral head on the x-ray.Patient is status post Arthrotomy left shoulder/irrigation and debridement/incision and drainage left septic shoulder completed on 01/11/2024. On today's evaluation that is 01/14/2024, the patient continues to be afebrile, the patient is on 2 L nasal cannula oxygen and breathing comfortably, the Pt denies having any chest pain or cough, the patient denies having any abdominal pain no vomiting or any diarrhea has been reported by the nursing staff, pain to the left shoulder has decreased in intensity. Patient white count 9.2 as of yesterday no CBC done today left shoulder cultures are pending Objective - Vital Signs Vital signs: Vital Signs Temp 97.8 F 01/14/24 08:37 Pulse 87 01/14/24 10:20 Resp 18 01/14/24 10:20 BP 147/76 01/14/24 08:37 Pulse Ox 94 L 01/14/24 08:40 FiO2 Intake & Output 01/13/24 01/14/24 01/14/24 18:59 06:59 18:59 Intake Total 240 240 Output Total 300 400 Balance -300 -160 240 Intake: Oral 240 240 Output: Urine 300 400 Other: Voiding Method Indwelling Catheter Indwelling Catheter Indwelling Catheter - Exam GENERAL DESCRIPTION: An elderly female lying in bed in no distress RESPIRATORY SYSTEM: Unlabored breathing , decreased breath sounds at bases HEART: S1 S2 regular rate and rhythm , ABDOMEN: Soft , no tenderness EXTREMITIES: No edema feet - Labs CBC & Chem 7: 01/13/24 16:03 01/13/24 08:04 Labs: Abnormal Lab Results - Last 24 Hours (Table) 01/13/24 01/13/24 01/13/24 Range/Units 11:25 16:03 16:30 RBC 2.77 L (3.80-5.40) m/uL Hgb 7.1 L (11.4-16.0) gm/dL Hct 23.9 L (34.0-46.0) % MCHC 29.7 L (31.0-37.0) g/dL RDW 15.8 H (11.5-15.5) % POC Glucose (mg/dL) 187 H 138 H (70-110) mg/dL 01/13/24 Range/Units 20:04 RBC (3.80-5.40) m/uL Hgb (11.4-16.0) gm/dL Hct (34.0-46.0) % MCHC (31.0-37.0) g/dL RDW (11.5-15.5) % POC Glucose (mg/dL) 140 H (70-110) mg/dL Microbiology - Last 24 Hours (Table) 01/09/24 15:19 CSF Gram Stain - Final Cerebral Spinal Fluid CSF Culture - Final Assessment and Plan (1) MSSA bacteremia Current Visit: Yes Status: Acute Code(s): R78.81 - BACTEREMIA; B95.61 - METHICILLIN SUSCEP STAPH INFCT CAUSING DIS CLASSD ELSR SNOMED Code(s): 994979158 (2) Septic arthritis of shoulder, left Current Visit: Yes Status: Acute Code(s): M00.9 - PYOGENIC ARTHRITIS, UNSPECIFIED SNOMED Code(s): 93693768 Plan: 1-1patient is a 78-year-old female with multiple comorbidities presenting to the hospital with confusion and mental status changes did have a low-grade fever elevated white count and now with evidence of MSSA bacteremia source is likely left shoulder which was large bony defect of the humeral head articular surface which was not seen on October 30, 2023 x-ray as currently no other obvious focus for this bacteremia, MRI of the left shoulder is currently pending 2-blood cultures repeated on 01/06/2024 as well as 01/07/2024 has been negative 3-patient is also growing ESBL E. coli in the urine however the patient denies urinary symptoms question of possible asymptomatic bacteriuria, the patient repeat urine cultures are negative, no need for antibiotics 4-patient MRI suspicious for septic arthritis of the glenohumeral joint on the left side patient is status post arthrotomy left shoulder/irrigation and debridement/incision and drainage left septic shoulder completed on 01/11/2024, cultures currently pending 5patient is afebrile the patient white count normal, patient to continue with the cefazolin will need a PICC line for outpatient IV antibiotic therapy Dictation was produced using [employer] dictation software. please excuse any grammatical, word or spelling errors. Time with Patient: Less than 30
--- NOTE | 2024-01-14 11:24 | P.PN ---
Subjective Progress Note Date: 01/14/24 Hospital course: Patient is a very pleasant 78-year-old female with a past medical history of Alzheimer's dementia with baseline mentation alert and oriented x 1-2, hypertension, hyperlipidemia, hypothyroidism, [id number] diabetes mellitus, iron deficiency anemia, recurrent UTIs, and history of prior pelvic fracture with chronic pelvic pain. She presented to the emergency department with a chief complaint of worsening confusion. Patient's reports that his is normally confused but he has noticed worsening confusion and a decreased appetite over the past few days. She underwent full evaluation in the emergency department. Vital signs upon arrival show blood pressure 132/63, heart rate 96, respiratory rate 20, temp 99.6 F, and SpO2 of 100% on room air. EKG completed showing normal sinus rhythm at 98 bpm with no significant T wave or ST abnormalities showing no signs of acute ischemia upon personal review and interpretation. CT brain completed and negative for acute intracranial process with radiology report stating stable chronic appearing patchy periventricular white matter ischemic changes with atrophy. Chest x-ray completed and was negative for acute cardiopulmonary process. X-ray left shoulder completed showing large bony defect in the humeral head articular surface. Pelvis x-ray completed showing known superior and inferior pubic rami fracture on the right reporting these as subacute incompletely healed fractures but reporting the superior pubic ramus fracture has displaced now by 9 mm versus 3 mm previously. Labs were completed and reviewed. CBC showing leukocytosis with a WBC count of 19.3 and hemoglobin of 7.4 (with a baseline hemoglobin of around 7.5). BMP showing hyponatremia with sodium of 133, hyperkalemia with potassium of 5.4, hypochloremia with chloride of 97, and an acute kidney injury with BUN of 62, creatinine 2.93, and GFR of 15 with baseline creatinine of 0.9. Calcium high at 11.8. Liver profile showing no significant abnormalities with the exception of low albumin of 2.9. Initial troponin elevated at 0.251. Urinalysis positive for protein, ketones, blood, leukocyte esterase, greater than 182 RBCs, and 69 WBCs. Influenza A, influenza B, COVID, and RSV were negative. Patient was admitted under our services with consultation to cardiology, nephrology and orthopedic surgery. Troponins trended overnight resulting at 0.251, 0.432, and 0.505. Orthopedic surgery evaluated, recommending conservative measures with use of sling to left upper extremity. Orthopedic team also recommending patient may perform gentle range of motion exercises of left upper extremity as tolerated, remain nonweightbearing to left upper extremity and in regards to pubic rami fracture patient may be weightbearing as tolerated and ambulate with walker with assistance. Renal function continues to worsen. Nephrology also consulted. Patient also found to have MSSA bacteremia. ID also consulted. Currently on IV antibiotics. Source unclear. On 01/09/2024 patient had status epilepticus, did resolve with IV Ativan and IV Keppra. Neurology consulted. Patient transferred to medical ICU. Brain MRI did not show any acute process. Shoulder MRI showed loculated fluid measuring up to 4.3 cm concerning for septic arthritis. Started on antiepileptics. Mental status improved. Now back to floors. Patient is status post shoulder surgery. On 01/13/2024 patient also having large coffee- ground emesis. General surgery consulted. Recommending monitoring Subjective: Patient seen and examined at bedside. Denies any further emesis. Hemovac removed Physical exam: Vital signs reviewed and stable. General: appears stated age, not in acute distress Derm: Skin warm and dry, normal coloration for ethnicity. Head: Atraumatic, normocephalic and symmetric. Eyes: no lid lag, and anicteric sclera, EOMI Mouth: no lip lesions, mucus membranes moist Cardiovascular: regular rate and rhythm with normal S1S2, systolic murmur, pos itive posterior tibial pulses bilaterally, and cap refill < 2 seconds. Lungs: Respirations even, regular, and unlabored on room air. Lungs CTA bilaterally, no rhonchi, no rales, no wheezing, and no accessory muscle usage. Abdominal: soft, nontender to palpation, no guarding, no appreciable organo megaly Ext: Unable to move left upper extremity due to edema and pain, dressing clean, dry, intact Neuro: CN II to XII grossly intact Psych: Alert, oriented x 3 Assessment and Plan of Care: Patient is severely ill, needs close monitoring. Prognosis guarded. Acute GI bleed Large coffee-ground emesis On IV pantoprazole 40 twice daily General surgery note reviewed, not recommending any further interventions Repeat hemoglobin pending Has received 2 units of PRBCs during this admission MSSA bacteremia Left shoulder septic arthritis, status post I&D UTI unlikely Nonoliguric, acute kidney injury, stable Acute on chronic Iron Deficiency anemia, status post 2 unit of PRBCs Hyperkalemia, resolved Hypokalemia, resolved Hypocalcemia, resolved Bibasilar effusions -She is status post surgical intervention for left shoulder septic arthritis -Nephrology following, on oral sodium bicarb, IV fluids discontinued, strict I's and O's, maintain Rodriguez catheter, avoid IV iron -ID following, continue IV cefazolin 1 g every 24 hours -Repeat blood cultures no growth to date -Echocardiogram does not show any valvular vegetation -Patient to remain on continuous telemetry monitoring. -Continue ferrous sulfate 325 mg daily, and ascorbic acid, hold off IV iron IV fluids have been discontinued, monitor respiratory function, if worsening will give IV Lasix. Status post Status epilepticus Discussed management with neurology, continue oral Vimpat 100 twice daily, signed off IV Ativan 2 mg every 6 hours as needed for seizures Seizure precautions Elevated troponins, type II NSTEMI -Chest pain-free, cardiology signed off -Continue aspirin 81 mg daily and atorvastatin 40 mg daily. -Patient to remain on continuous telemetry monitoring Acute metabolic encephalopathy, possibly in the setting of seizures Alzheimer's dementia Parkinson's disease -Continue daily medication regimen with carbidopa levodopa 25/100 mg tablets 4 times daily. Left shoulder and pelvic pain Right-sided superior and inferior pubic rami fractures, chronic Left shoulder humeral head collapse -Fractures possibly in the setting of seizures -Conservative management Patient did undergo I&D of left shoulder Type II non-insulin dependent diabetes mellitus -Continue to hold metformin -Continue sliding scale insulin, monitor for hypoglycemia Hypothyroidism -Continue daily medication regimen with levothyroxine 100 mcg daily. -TSH 1.200 Data and imaging reviewed: CBC and CMP pending, will be reviewed when available No new imaging CODE STATUS: DNR/DNI DVT prophylaxis: SCDs Anticipated discharge date: Clinical course to determine Anticipated discharge place: Clinical course to determine Objective - Vital Signs Vital signs: Vital Signs Temp 97.8 F 01/14/24 08:37 Pulse 87 01/14/24 10:20 Resp 18 01/14/24 10:20 BP 147/76 01/14/24 08:37 Pulse Ox 94 L 01/14/24 08:40 FiO2 Intake & Output 01/13/24 01/14/24 01/14/24 18:59 06:59 18:59 Intake Total 240 240 Output Total 300 400 Balance -300 -160 240 Intake: Oral 240 240 Output: Urine 300 400 Other: Voiding Method Indwelling Catheter Indwelling Catheter Indwelling Catheter - Labs CBC & Chem 7: 01/13/24 16:03 01/13/24 08:04 Labs: Abnormal Lab Results - Last 24 Hours (Table) 01/13/24 01/13/24 01/13/24 Range/Units 11:25 16:03 16:30 RBC 2.77 L (3.80-5.40) m/uL Hgb 7.1 L (11.4-16.0) gm/dL Hct 23.9 L (34.0-46.0) % MCHC 29.7 L (31.0-37.0) g/dL RDW 15.8 H (11.5-15.5) % POC Glucose (mg/dL) 187 H 138 H (70-110) mg/dL 01/13/24 Range/Units 20:04 RBC (3.80-5.40) m/uL Hgb (11.4-16.0) gm/dL Hct (34.0-46.0) % MCHC (31.0-37.0) g/dL RDW (11.5-15.5) % POC Glucose (mg/dL) 140 H (70-110) mg/dL Microbiology - Last 24 Hours (Table) 01/09/24 15:19 CSF Gram Stain - Final Cerebral Spinal Fluid CSF Culture - Final
[2024-01-14 11:27] LABS: Glucose,Whole Blood 157 mg/dL (70-110)
[2024-01-14 12:38] LABS: Basophils % (A) 0 %; Eosinophils # (A) 0.1 k/uL (0-0.7); Eosinophils % (A) 1 %; HCT 24.5 % (34.0-46.0); HGB 7.9 gm/dL (11.4-16.0); Hypochromasia Slight; Lymphocytes % (A) 11 %; MCH 27.6 pg (25.0-35.0); MCHC 32.3 g/dL (31.0-37.0); MCV 85.5 fL (80.0-100.0); Mean Platelet Volume 8.2; Monocytes # (A) 0.3 k/uL (0-1.0); Monocytes % (A) 3 %; Neutrophils # (A) 7.5 k/uL (1.3-7.7); Neutrophils % (A) 84 %; Platelet Count 248 k/uL (150-450); RBC 2.87 m/uL (3.80-5.40); RDW 15.8 % (11.5-15.5); WBC 8.9 k/uL (3.8-10.6)
[2024-01-14 12:53] LABS: ALT <6 U/L (4-34); AST 16 U/L (14-36); African American GFR (CKD) 11 (>60 ml/min/1.73 sqM); Alkaline Phosphatase 86 U/L (38-126); Anion Gap 7 mmol/L; Blood Urea Nitrogen 46 mg/dL (7-17); Calcium 6.9 mg/dL (8.4-10.2); Carbon Dioxide 20 mmol/L (22-30); Chloride 112 mmol/L (98-107); Glucose 137 mg/dL (74-99); Non-African American GFR(CKD) 10 (>60 ml/min/1.73 sqM); Potassium 3.7 mmol/L (3.5-5.1); Sodium 139 mmol/L (137-145); Total Bilirubin 0.4 mg/dL (0.2-1.3); Total Protein 5.1 g/dL (6.3-8.2)
--- NOTE | 2024-01-14 14:29 | P.PN ---
Subjective Patient is seen for follow-up for acute kidney injury. She is comfortable with no significant complaints. Status post IV fluids Serum creatinine staying stable around 4 mg/dL. No complaints of shortness of breath. Objective - Vital Signs Vital signs: Vital Signs Temp 97.8 F 01/14/24 08:37 Pulse 89 01/14/24 12:08 Resp 18 01/14/24 12:08 BP 137/66 01/14/24 12:08 Pulse Ox 91 L 01/14/24 12:08 FiO2 Intake & Output 01/13/24 01/14/24 01/14/24 18:59 06:59 18:59 Intake Total 240 240 Output Total 300 400 Balance -300 -160 240 Intake: Oral 240 240 Output: Urine 300 400 Other: Voiding Method Indwelling Catheter Indwelling Catheter Indwelling Catheter - Exam Patient is awake, comfortable, no acute distress Examination of the heart S1 and S2 Examination of the lungs decreased breath sounds at the bases Abdomen is soft nontender Examination of lower extremities shows 1+ bilateral edema. 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 - Labs CBC & Chem 7: 01/14/24 11:39 01/14/24 11:39 Labs: Abnormal Lab Results - Last 24 Hours (Table) 01/13/24 01/13/24 01/13/24 Range/Units 16:03 16:30 20:04 RBC 2.77 L (3.80-5.40) m/uL Hgb 7.1 L (11.4-16.0) gm/dL Hct 23.9 L (34.0-46.0) % MCHC 29.7 L (31.0-37.0) g/dL RDW 15.8 H (11.5-15.5) % Chloride (98-107) mmol/L Carbon Dioxide (22-30) mmol/L BUN (7-17) mg/dL Creatinine (0.52-1.04) mg/dL Glucose (74-99) mg/dL POC Glucose (mg/dL) 138 H 140 H (70-110) mg/dL Calcium (8.4-10.2) mg/dL Total Protein (6.3-8.2) g/dL Albumin (3.5-5.0) g/dL 01/14/24 01/14/24 01/14/24 Range/Units 11:26 11:39 11:39 RBC 2.87 L (3.80-5.40) m/uL Hgb 7.9 L (11.4-16.0) gm/dL Hct 24.5 L (34.0-46.0) % MCHC (31.0-37.0) g/dL RDW 15.8 H (11.5-15.5) % Chloride 112 H (98-107) mmol/L Carbon Dioxide 20 L (22-30) mmol/L BUN 46 H (7-17) mg/dL Creatinine 4.11 H (0.52-1.04) mg/dL Glucose 137 H (74-99) mg/dL POC Glucose (mg/dL) 157 H (70-110) mg/dL Calcium 6.9 L (8.4-10.2) mg/dL Total Protein 5.1 L (6.3-8.2) g/dL Albumin 2.0 L (3.5-5.0) g/dL Microbiology - Last 24 Hours (Table) 01/11/24 14:15 Anaerobic Culture - Preliminary Shoulder - Left 01/11/24 14:15 Gram Stain - Preliminary Shoulder - Left Wound Culture - Preliminary Presumptive Staph aureus 01/09/24 15:19 CSF Gram Stain - Final Cerebral Spinal Fluid CSF Culture - Final Assessment and Plan Assessment: 1. Acute kidney injury, ATN secondary to severe anemia and sepsis. Currently with indwelling Rodriguez catheter. UA shows 2+ protein large blood and WBCs 69. Ultrasound shows no hydronephrosis on the right kidney. Left kidney could not be visualized due to patient position. CT scan shows no evidence of obstructive uropathy. Status post IV fluid. 2. Acute blood loss anemia, most likely GI bleed. Being transfused packed RBCs. Iron studies show significant iron deficiency however at this time in view of positive blood cultures I will hold the IV iron until 2 to 3 days of being on antibiotics. 3. Hyperkalemia on admission associated with acute kidney injury, currently improved 4. Hypertension with blood pressure currently on the lower side. 5. UTI with urine culture growing E. coli 6. Bacteremia with blood cultures growing MSSA 7. Mild volume overload Plan: Continue off of IV fluids Repeat labs in a.m. Continue to avoid nephrotoxic agents. We will continue to monitor closely for need for renal replacement therapy Continue with oral sodium bicarb
--- NOTE | 2024-01-14 15:23 | P.PN ---
Subjective Progress Note Date: 01/14/24 CHIEF COMPLAINT: GI bleed HISTORY OF PRESENT ILLNESS: The patient is a 78-year-old female noted to have hematemesis during her current hospitalization. Patient at this time resting comfortably in bed. She is drinking Ensure clear. She reports mild nausea. No abdominal pain. ROS: No fevers or chills. No new chest pain. No productive sputum PHYSICAL EXAM: VITAL SIGNS: Reviewed CONSTITUTIONAL: Well developed and in no acute distress. EYES: Conjuctivae without sclera icterus. Extraocular movements grossly intact. HEAD, EARS, NOSE, THROAT: Moist buccal mucosa. Head is atraumatic, normoce phalic. Hears conversational speech. No nasal drainage. RESPIRATORY: Non-labored respirations and equal bilateral excursions. CARDIOVASCULAR: Palpable 2+ radial pulses. ABDOMEN: No peritonitis. MUSCULOSKELETAL: No gross deformity of the lower extremities noted. No clubbing. No cyanosis. SKIN: Good skin turgor. Well perfused. NEUROLOGIC: Cranial nerves II through XII grossly intact. No focal or lateralizing signs. PSYCH: Alert to person. CLINICAL LABS: Reviewed. Hemoglobin of 6.4-7.9, anemia ASSESSMENT: 1. Acute blood loss anemia with GI bleed 2. Hematemesis PLAN: 1. Recommend upper endoscopy for further investigation for hematemesis. 2. Transfuse as needed. Objective - Vital Signs Vital signs: Vital Signs Temp 97.8 F 01/14/24 08:37 Pulse 89 01/14/24 12:08 Resp 18 01/14/24 12:08 BP 137/66 01/14/24 12:08 Pulse Ox 91 L 01/14/24 12:08 FiO2 Intake & Output 01/13/24 01/14/24 01/14/24 18:59 06:59 18:59 Intake Total 240 240 Output Total 300 400 Balance -300 -160 240 Intake: Oral 240 240 Output: Urine 300 400 Other: Voiding Method Indwelling Catheter Indwelling Catheter Indwelling Catheter - Labs CBC & Chem 7: 01/14/24 11:39 01/14/24 11:39 Labs: Abnormal Lab Results - Last 24 Hours (Table) 01/13/24 01/13/24 01/13/24 Range/Units 16:03 16:30 20:04 RBC 2.77 L (3.80-5.40) m/uL Hgb 7.1 L (11.4-16.0) gm/dL Hct 23.9 L (34.0-46.0) % MCHC 29.7 L (31.0-37.0) g/dL RDW 15.8 H (11.5-15.5) % Chloride (98-107) mmol/L Carbon Dioxide (22-30) mmol/L BUN (7-17) mg/dL Creatinine (0.52-1.04) mg/dL Glucose (74-99) mg/dL POC Glucose (mg/dL) 138 H 140 H (70-110) mg/dL Calcium (8.4-10.2) mg/dL Total Protein (6.3-8.2) g/dL Albumin (3.5-5.0) g/dL 01/14/24 01/14/24 01/14/24 Range/Units 11:26 11:39 11:39 RBC 2.87 L (3.80-5.40) m/uL Hgb 7.9 L (11.4-16.0) gm/dL Hct 24.5 L (34.0-46.0) % MCHC (31.0-37.0) g/dL RDW 15.8 H (11.5-15.5) % Chloride 112 H (98-107) mmol/L Carbon Dioxide 20 L (22-30) mmol/L BUN 46 H (7-17) mg/dL Creatinine 4.11 H (0.52-1.04) mg/dL Glucose 137 H (74-99) mg/dL POC Glucose (mg/dL) 157 H (70-110) mg/dL Calcium 6.9 L (8.4-10.2) mg/dL Total Protein 5.1 L (6.3-8.2) g/dL Albumin 2.0 L (3.5-5.0) g/dL Microbiology - Last 24 Hours (Table) 01/11/24 14:15 Anaerobic Culture - Preliminary Shoulder - Left 01/11/24 14:15 Gram Stain - Preliminary Shoulder - Left Wound Culture - Preliminary Presumptive Staph aureus 01/09/24 15:19 CSF Gram Stain - Final Cerebral Spinal Fluid CSF Culture - Final
[2024-01-14 16:37] LABS: Glucose,Whole Blood 168 mg/dL (70-110)
--- NOTE | 2024-01-14 16:45 | P.PN ---
Subjective Progress Note Date: 01/14/24 78-year-old female patient got transferred to the intensive care unit because of ongoing seizure activity and concerns for status epilepticus. The patient was hospitalized few days back with altered mentation and confusion. She apparently has history of dementia possible evidence status of his dementia and she has some baseline confusion. It was noted that her confusion was progressively getting worse and she also had diminished appetite also. In the emergency department, the patient was hemodynamically stable. Initial CAT scan of the brain was negative for any acute intracranial process and the patient had chronic appearing patchy periventricular white matter ischemic changes and atrophy. Chest x-ray was normal. X-ray of the left shoulder was done and the patient showed a large bony defect in the left humeral head articular space and the shoulder was quite swollen. This was suspected to be related to a traumatic injury. Pelvic x-ray showed also superior inferior pubic rami fracture on the right and subacute incomplete healed fractures and the superior pubic ramus was displaced by around 9 mm. Blood work showed leukocytosis with a white cell count of 19.3 with a hemoglobin of 7.4 and she has chronic baseline anemia. The patient also had a sodium level of 133 with a potassium level 5.4 and a chloride of 97 with a BUN of 63 and a creatinine of 2.9. Calcium was also elevated at 11.8. No significant abnormalities in liver function test. The viral screen was negative. UA was suggestive of an underlying infection and UTI was suspected. The patient also had some troponin leak. As such, the patient was admitted to the hospital for further workup and treatment. She was seen by nephrology and the patient demonstrated progressive worsening in renal function and the creatinine delfina from 2.9 up to 4.05 and this morning is at 3.96. The white cell count dropped down to 9.3. Hemoglobin has been stable at 8.4 from today. The urine culture was positive for E. coli and this was an ESBL producing microorganism in the blood culture was also positive for Staph aureus/MSSA and this was identified on 2 separate blood cultures. Infectious disease was consulted and the patient was placed on IV cefazolin. Based on the staphylococcal growth in the blood and the joint swelling in the left shoulder, there is a concern for septic arthritis. MRI of the left shoulder was ordered and orthopedic consultation was also requested. The CT scan of the abdomen and pelvis showed no acute intra-abdominal process without any obstructive uropathy or calculus. Subacute fractures of the right inferior and superior rami/pubic rami as well as the right sacrum was noted. This afternoon, the patient was noted to have eye twitching and gaze deviation to the left and seizure-like activity. Subsequently, in the morning, the patient continued to have left gaze deviation with eye twitching and seizure- like tonic-clonic seizure activity as reported by the nursing staff that lasted less than a minute. The patient continued to have recurrent seizures following that lasting up to 5 minutes with the left gaze deviation and generalized clonic activity. The patient had been given a total of 2 mg of IV Ativan during the first episode another 2 mg of Ativan during the second episode bringing her up to a total of 4 mg. She was loaded with Keppra 500 mg IV and dose adjustment wa s done based on the underlying renal failure. Noted the patient does not have any history of seizure activity or seizure disorder. She is currently afebrile. I was asked to move the patient to the intensive care unit for further monitoring. A repeat CAT scan of the brain was done and it showed atrophy with chronic appearing periventricular white matter ischemic changes and the findings were essentially stable. At this point in time, the patient is on 2 L of oxygen by nasal cannula. The patient remains on IV cefazolin. On today's evaluation of 01/10/2024, the patient is being seen for a follow-up. Her neurostatus is improved slightly compared to yesterday and the patient was able to answer some simple commands. No focal neurological deficits. No facial asymmetry. Pupils are equal reactive to light. Lumbar puncture was done yesterday and the patient has only 1 nucleated cell without any significant elevation in the CSF protein. Cultures are still negative. This is essentially negative LP . There is CSF RBC was 17. CSF glucose was 107. No neck stiffness. No further seizure activity and the patient is currently on Vimpat 100 mg IV every 12 hours. MRI of the brain is to be done today. EEG was completed and showed encephalopathy and there was no indication for an acute or ongoing seizure activity. The plan for now is to proceed with an MRI of the brain and the patient is also going to need an MRI of the shoulder with concerns of septic arthritis. Ultrasound Doppler of the left upper extremity was also done today. This was done essentially to rule out DVT and the results are still pending for now. The patient is afebrile. The patient is hemodynamically s table. Pulse ox is 99% on 2 L of oxygen by nasal cannula. Remains on normal saline at rate of 75 cc an hour. ID is on the case. The patient was growing ESBL producing E. coli in the urine however she did not have any urinary symptoms and the repeat urine cultures have been negative. Based on that, no further antibiotic coverage was recommended in that regard. On today's evaluation of 01/11/2024, the patient is being seen for a follow-up. She is alert and communicating at this point in time. She was transferred out of the intensive care unit. The no further seizure activity and the patient remains on Vimpat. Lumbar puncture was negative. No neck stiffness. No focal neurological deficits. The patient remains on IV cefazolin regarding her staphylococcal septicemia. The patient also had a MRI of the brain that showed no acute abnormalities. MRI of the shoulder was quite abnormal and the patient was Considered to have possibility of septic arthritis. The patient had severe osseous and periarticular and surrounding soft tissue edema along with severe bone loss particularly in the articular surface of the head and underlying joints/bursa effusion as well as located fluid in the lateral deltoid shelf was seen measuring 4.3 cm in size and this made the possibility of septic arthritis more concerning. Based on that, the patient was taken to the operating room and the patient underwent a arthrotomy of the left shoulder along with irrigation debridement and incision and drainage of the left septic shoulder. The patient was found to have significant destruction involving the left humeral head. The bone was debrided. There was thickened synovial tissue that was excised. The joint was then copiously irrigated. A deep drain was placed into the glenohumeral joint. The skin was sutured with appropriate dressing was applied and the patient was brought back to the medical floor. Currently she is on 2 L of oxygen nasal cannula with a pulse ox of 92%. The blood work from today shows a WBC count 9.2, hemoglobin 7.3 and a platelet count of 257. BUN is at 49 with a creatinine of 4.06 and a sodium levels at 138. No other significant events overnight. MRI of the brain was nonspecific and showed atrophy and chronic appearing periventricular white matter ischemic changes. On 01/12/2024, the patient is being seen for a follow-up. Patient is doing well. No specific complaints. She underwent an orthopedic intervention which included arthrotomy of the left shoulder and irrigation debridement and incision and drainage of a left septic joint/arthritis. The cultures are still negative for now. No significant pain. Left upper extremity remains slightly swollen. The patient has no altered mentation. No seizure activity. She is calm and comfortable. She has dropped her hemoglobin down to 6.4 and the patient will be receiving unit of packed RBC. She continues to have chronic kidney disease with a BUN of 46 and a creatinine of 4.05 and her renal function remained stable. Sodium level is 138, bicarb is 19 And anion gap is at 7. The patient remains on IV cefazolin for now. The patient is also on oxygen at 2 L and she was transitioned to room air oxygen. Her pulse ox remains around 97%. No respiratory distress. No focal neurological deficits. On today's evaluation of 01/13/2024, the patient is being seen for a follow-up. The patient has no specific complaints. The left shoulder was debrided and the Gram stain and culture still negative and the patient remains on IV cefazolin. Renal function remained stable with a BUN of 45 with a creatinine of 4.1. No seizure activity. Hemodynamically stable. Remains on oxygen at 2 L/min nasal c annula with a pulse ox of 96%. White cell count of 8.5 with a hemoglobin of 8.1. No other new complaints otherwise for now. Resting comfortably in bed. Nephrology on the case regarding care acute on chronic kidney disease. ID is on the case. Orthopedic surgery is on the case. Neuro is on the case. The patient is currently on Vimpat. She has generalized global weakness yet no focal neurological deficit and no seizure activity. Noted the edema. No encephalopathy. On today's evaluation of 01/14/2024, the patient is resting comfortably in bed. No specific complaints. She was seen by general surgery regarding possibility of hematemesis during the current admission. Note that the patient's hemoglobin dropped down to as low as 6.4 and currently is up to 7.9. The plan is to do EGD at a later stage. The patient remains on room air oxygen with a pulse ox of 91%. No respiratory difficulties. No altered mentation. No seizure activity. She remains on IV cefazolin. Shoulder wound is showing presumptive Staph aureus, awaiting final cultures and sensitivities. Objective - Vital Signs Vital signs: Vital Signs Temp 97.8 F 01/14/24 08:37 Pulse 87 01/14/24 10:20 Resp 18 01/14/24 10:20 BP 147/76 01/14/24 08:37 Pulse Ox 94 L 01/14/24 08:40 FiO2 Intake & Output 01/13/24 01/14/24 01/14/24 18:59 06:59 18:59 Intake Total 240 240 Output Total 300 400 Balance -300 -160 240 Intake: Oral 240 240 Output: Urine 300 400 Other: Voiding Method Indwelling Catheter Indwelling Catheter Indwelling Catheter - Exam General: appears stated age.,, Comfortable the patient is currently on 2 L of oxygen by nasal cannula. Derm: Skin warm and dry, normal coloration for ethnicity. Head: Atraumatic, normocephalic and symmetric. Eyes: no lid lag, and anicteric sclera, EOMI Mouth: no lip lesions, mucus membranes moist Cardiovascular: regular rate and rhythm with normal S1S2, systolic murmur, positive posterior tibial pulses bilaterally, and cap refill < 2 seconds. Lungs: Respirations even, regular, and unlabored on room air. Lungs CTA bilaterally, no rhonchi, no rales, no wheezing, and no accessory muscle usage. Abdominal: soft, nontender to palpation, no guarding, no appreciable organomegaly Ext: Left upper extremity in a sling, left arm edema, along with postsurgical changes in the left upper extremity with a drain and the dressing is dry and not soaked at this point in time. Neuro: Lethargic is more awake compared to yesterday. Able to move her arms and legs without any limitation. Generalized profound weakness in all 4 extremities. Pupils are equal reactive to light. No facial asymmetry. Posi tive cough and gag. Responding to simple commands and answering simple questions. Psych: Unable to assess - Labs CBC & Chem 7: 01/14/24 11:39 01/14/24 11:39 Labs: Abnormal Lab Results - Last 24 Hours (Table) 01/13/24 01/13/24 01/13/24 Range/Units 16:03 16:30 20:04 RBC 2.77 L (3.80-5.40) m/uL Hgb 7.1 L (11.4-16.0) gm/dL Hct 23.9 L (34.0-46.0) % MCHC 29.7 L (31.0-37.0) g/dL RDW 15.8 H (11.5-15.5) % POC Glucose (mg/dL) 138 H 140 H (70-110) mg/dL 01/14/24 Range/Units 11:26 RBC (3.80-5.40) m/uL Hgb (11.4-16.0) gm/dL Hct (34.0-46.0) % MCHC (31.0-37.0) g/dL RDW (11.5-15.5) % POC Glucose (mg/dL) 157 H (70-110) mg/dL Microbiology - Last 24 Hours (Table) 01/09/24 15:19 CSF Gram Stain - Final Cerebral Spinal Fluid CSF Culture - Final Assessment and Plan Plan: New onset seizure with status epilepticus controlled on Vimpat and the patient has not had any seizure episodes over the past 24 hours. EEG showing encephalopathy without any ongoing seizure activity. The patient is free of any seizure activity. MRI of the brain showed chronic periventricular white matter disease and atrophy. No acute abnormalities. Mental status is back to normal and the patient remains on Vimpat without any seizure activity. MSSA bacteremia/sepsis currently on IV cefazolin, no fevers. No hemodynamic instability. Left glenohumeral joint septic arthritis and subdeltoid abscess. The patient had left shoulder swelling, along with pain.. The patient has left humeral head collapse, consider AVN versus neuropathic arthropathy. Possibility of a septic arthritis cannot be ruled out. Fractures could be related to seizures and the patient is currently wearing a sling and orthopedic surgery is on the case. MRI of the shoulder was indicative of septic arthritis and the patient underwent arthrotomy and debridement and irrigation of the left shoulder along with inc ision and drainage of the left septic shoulder joint. The patient is currently postop day # 3. The cultures are also showing staph aureus. Pelvic fracture related to seizure/fall. Pelvic fracture was present approximately 6 weeks ago, and the patient has superior and inferior pubic rami fracture on the right Acute kidney injury, creatinine remains stable and unchanged, creatinine is stable and nephrology on the case Hematemesis, awaiting EGD by general surgery. Alzheimer's dementia Hypertension Hyperlipidemia Hypothyroidism Cgf-ozphpwo-gyhaftgrl diabetes mellitus Iron deficiency anemia History of recurrent urine tract infection most recent infections with E. coli Abnormal troponins, consider type II myocardial ischemia, echo of the heart shows a preserved LV function with a normal ejection fraction of 55 to 60% History of Parkinson's disease DNR/DNI CODE STATUS Plan Respiratory status is stable patient is currently on room air oxygen Provide the patient is still spirometer Neurologic condition is stable and the patient is awake and alert and communicating. No altered mentation at this point in time. Left shoulder arthrotomy and debridement and drainage of the subdeltoid abscess was done. Patient is postop day # 3 of the culture positive for Staph aureus Patient will be kept on IV cefazolin pending further cultures from the left shoulder Continue Vimpat 100 mg IV twice daily Ativan as needed for breakthrough seizures EEG was noted and is consistent with encephalopathy Lumbar puncture, negative MRI of the brain, showing no acute abnormalities MRI of the shoulder, completed and the results were noted Orthopedic surgery is on the case IV fluids normal saline at rate of 75 cc an hour Resume home medications and assess swallow Nephrology regarding the acute kidney injury, keep Rodriguez catheter in place, likely ATN knowing that the baseline creatinine was stable on 01/06/2024 and 0.9. No hydronephrosis. Avoid nephrotoxic agents. EGD by general surgery and monitor hemoglobin DNR/DNI CODE STATUS
[2024-01-14 19:49] LABS: Glucose,Whole Blood 116 mg/dL (70-110)
[2024-01-15 05:57] LABS: Glucose,Whole Blood 103 mg/dL (70-110)
[2024-01-15] MEDS ORDERED: LIDOCAINE 1% INJ 10MG/ML (20 ML MDV) ONE (06:58)
[2024-01-15] MEDS ORDERED: PROPOFOL 10 MG/ML 20 ML VIAL IV ONE (06:58)
[2024-01-15] MEDS: SODIUM CHLORIDE 0.9% 500 ML 500 ML IV ONE ×2 (07:13→07:18)
--- NOTE | 2024-01-15 07:32 | P.PCN ---
Date of Procedure: 01/15/24 Description of Procedure: PREOPERATIVE DIAGNOSIS: Acute gastrointestinal bleeding Hematemesis Status post blood transfusions POSTOPERATIVE DIAGNOSIS: Diaphragmatic hiatal hernia Acute gastrointestinal bleeding Hematemesis Status post blood transfusions OPERATION: Esophagogastroduodenoscopy SURGEON: Irene Wheeler MD ANESTHESIA: MAC. INDICATIONS: The patient is a 78-year-old female who presents with gastrointestinal bleeding including hematemesis status post blood transfusion. Benefits and risks of the procedure were described. Informed consent was obtained. DESCRIPTION: The patient was brought into the endoscopy suite and laid in the left lateral decubitus position. An Olympus gastroscope was passed along the posterior oropharynx down to the distal esophagus where the squamocolumnar junction was encountered at 36 cm from the incisors. The stomach was entered and no bile reflux was found. Additional findings are listed below. The first through third portion of the duodenum was examined and unremarkable. Retroflexion of the scope confirmed Hill grade 3 lower esophageal valve. The squamocolumnar junction demonstrated LA grade B erosive esophagitis. The stomach was desufflated. The patient tolerated the procedure well. FINDINGS: Squamocolumnar junction 36 cm from the incisors. Diaphragmatic hiatus at 37 cm. Hiatal hernia, 1 cm Hill grade 3 lower esophageal valve. LA grade B erosive esophagitis. No active duodenitis. No stigmata of bleeding RECOMMENDATIONS: 1. Diet as tolerated 2. Upper endoscopy as needed 3. May need lower endoscopy continuance of bleeding
[2024-01-15 09:34] LABS: Basophils % (A) 0 %; Eosinophils # (A) 0.1 k/uL (0-0.7); Eosinophils % (A) 1 %; HCT 25.6 % (34.0-46.0); HGB 8.2 gm/dL (11.4-16.0); Hypochromasia Moderate; Lymphocytes % (A) 10 %; MCH 27.8 pg (25.0-35.0); Mean Platelet Volume 7.8; Monocytes # (A) 0.4 k/uL (0-1.0); Monocytes % (A) 4 %; Neutrophils # (A) 9.1 k/uL (1.3-7.7); Neutrophils % (A) 85 %; Platelet Count 276 k/uL (150-450); RBC 2.94 m/uL (3.80-5.40); RDW 15.9 % (11.5-15.5); WBC 10.7 k/uL (3.8-10.6)
[2024-01-15 10:02] LABS: African American GFR (CKD) 11 (>60 ml/min/1.73 sqM); Anion Gap 10 mmol/L; Blood Urea Nitrogen 48 mg/dL (7-17); Calcium 7.2 mg/dL (8.4-10.2); Carbon Dioxide 19 mmol/L (22-30); Chloride 111 mmol/L (98-107); Glucose 107 mg/dL (74-99); Non-African American GFR(CKD) 9 (>60 ml/min/1.73 sqM); Potassium 3.9 mmol/L (3.5-5.1); Sodium 140 mmol/L (137-145)
--- NOTE | 2024-01-15 10:21 | P.PN ---
Subjective Progress Note Date: 01/15/24 Principal diagnosis: Status post I&D left shoulder Patient was evaluated today at bedside, she is resting in her hospital chair. She is having minimal shoulder pain at this time. No active drainage from the bandage. Pain is well-controlled. Objective - Vital Signs Vital signs: Vital Signs Temp 97.4 F L 01/15/24 08:15 Pulse 84 01/15/24 08:15 Resp 16 01/15/24 08:15 BP 125/71 01/15/24 08:15 Pulse Ox 98 01/15/24 08:15 FiO2 Intake & Output 01/14/24 01/15/24 01/15/24 18:59 06:59 18:59 Intake Total 360 100 Output Total 500 Balance 360 -500 100 Intake: IV 100 Oral 360 Output: Urine 500 Other: Voiding Method Indwelling Catheter Indwelling Catheter - Exam Left upper extremity: Dressing is in good position and condition, no active drainage. Swelling is noted throughout the extremity. Her sensory exam to light touch is intact throughout the extremity. Her radial and ulnar pulse are 2+ - Labs CBC & Chem 7: 01/15/24 08:55 01/15/24 08:55 Labs: Abnormal Lab Results - Last 24 Hours (Table) 01/14/24 01/14/24 01/14/24 Range/Units 11:26 11:39 11:39 WBC (3.8-10.6) k/uL RBC 2.87 L (3.80-5.40) m/uL Hgb 7.9 L (11.4-16.0) gm/dL Hct 24.5 L (34.0-46.0) % RDW 15.8 H (11.5-15.5) % Neutrophils # (1.3-7.7) k/uL Chloride 112 H (98-107) mmol/L Carbon Dioxide 20 L (22-30) mmol/L BUN 46 H (7-17) mg/dL Creatinine 4.11 H (0.52-1.04) mg/dL Glucose 137 H (74-99) mg/dL POC Glucose (mg/dL) 157 H (70-110) mg/dL Calcium 6.9 L (8.4-10.2) mg/dL Total Protein 5.1 L (6.3-8.2) g/dL Albumin 2.0 L (3.5-5.0) g/dL 01/14/24 01/14/24 01/15/24 Range/Units 16:35 19:48 08:55 WBC 10.7 H (3.8-10.6) k/uL RBC 2.94 L (3.80-5.40) m/uL Hgb 8.2 L (11.4-16.0) gm/dL Hct 25.6 L (34.0-46.0) % RDW 15.9 H (11.5-15.5) % Neutrophils # 9.1 H (1.3-7.7) k/uL Chloride (98-107) mmol/L Carbon Dioxide (22-30) mmol/L BUN (7-17) mg/dL Creatinine (0.52-1.04) mg/dL Glucose (74-99) mg/dL POC Glucose (mg/dL) 168 H 116 H (70-110) mg/dL Calcium (8.4-10.2) mg/dL Total Protein (6.3-8.2) g/dL Albumin (3.5-5.0) g/dL 01/15/24 Range/Units 08:55 WBC (3.8-10.6) k/uL RBC (3.80-5.40) m/uL Hgb (11.4-16.0) gm/dL Hct (34.0-46.0) % RDW (11.5-15.5) % Neutrophils # (1.3-7.7) k/uL Chloride 111 H (98-107) mmol/L Carbon Dioxide 19 L (22-30) mmol/L BUN 48 H (7-17) mg/dL Creatinine 4.23 H (0.52-1.04) mg/dL Glucose 107 H (74-99) mg/dL POC Glucose (mg/dL) (70-110) mg/dL Calcium 7.2 L (8.4-10.2) mg/dL Total Protein (6.3-8.2) g/dL Albumin (3.5-5.0) g/dL Microbiology - Last 24 Hours (Table) 01/11/24 14:15 Gram Stain - Final Shoulder - Left Wound Culture - Final Staphylococcus aureus 01/11/24 14:15 Anaerobic Culture - Preliminary Shoulder - Left 01/09/24 15:19 CSF Gram Stain - Final Cerebral Spinal Fluid CSF Culture - Final Assessment and Plan Assessment: Postoperative day #4 status post I&D left shoulder Multiple medical comorbidities Plan: Monitor surgical dressing PT/OT evaluation Basic range of motion of the left shoulder is okay, avoid excess lifting GI and DVT prophylaxis per primary medical service Continue to follow during hospital stay Prescription was placed for a lymphedema compression sleeve for the left upper extremity, this was discussed with case management. Due to the amount of swelling in the extremity from the surgery and current condition we are recommending use of this for the next 6 to 8 weeks. Orthopedically patient remains please contact our service with any further questions regarding this patient stable for discharge and follow-up in the outpatient setting. Time with Patient: Less than 30
--- NOTE | 2024-01-15 11:16 | P.PN ---
Subjective Patient is seen for follow-up for acute kidney injury. She is comfortable with no significant complaints. Status post IV fluids Serum creatinine staying stable around 4 mg/dL. No complaints of shortness of breath. Patient needs PICC line for long-term antibiotics. Objective - Vital Signs Vital signs: Vital Signs Temp 97.4 F L 01/15/24 08:15 Pulse 84 01/15/24 08:20 Resp 16 01/15/24 08:20 BP 125/71 01/15/24 08:15 Pulse Ox 98 01/15/24 08:15 FiO2 Intake & Output 01/14/24 01/15/24 01/15/24 18:59 06:59 18:59 Intake Total 360 100 Output Total 500 Balance 360 -500 100 Intake: IV 100 Oral 360 Output: Urine 500 Other: Voiding Method Indwelling Catheter Indwelling Catheter Indwelling Catheter - Exam Patient is awake, comfortable, no acute distress Examination of the heart S1 and S2 Examination of the lungs decreased breath sounds at the bases Abdomen is soft nontender Examination of lower extremities shows 1+ bilateral edema. [employer] exam shows patient is moving all 4 extremities. - Labs CBC & Chem 7: 01/15/24 08:55 01/15/24 08:55 Labs: Abnormal Lab Results - Last 24 Hours (Table) 01/14/24 01/14/24 01/14/24 Range/Units 11:26 11:39 11:39 WBC (3.8-10.6) k/uL RBC 2.87 L (3.80-5.40) m/uL Hgb 7.9 L (11.4-16.0) gm/dL Hct 24.5 L (34.0-46.0) % RDW 15.8 H (11.5-15.5) % Neutrophils # (1.3-7.7) k/uL Chloride 112 H (98-107) mmol/L Carbon Dioxide 20 L (22-30) mmol/L BUN 46 H (7-17) mg/dL Creatinine 4.11 H (0.52-1.04) mg/dL Glucose 137 H (74-99) mg/dL POC Glucose (mg/dL) 157 H (70-110) mg/dL Calcium 6.9 L (8.4-10.2) mg/dL Total Protein 5.1 L (6.3-8.2) g/dL Albumin 2.0 L (3.5-5.0) g/dL 01/14/24 01/14/24 01/15/24 Range/Units 16:35 19:48 08:55 WBC 10.7 H (3.8-10.6) k/uL RBC 2.94 L (3.80-5.40) m/uL Hgb 8.2 L (11.4-16.0) gm/dL Hct 25.6 L (34.0-46.0) % RDW 15.9 H (11.5-15.5) % Neutrophils # 9.1 H (1.3-7.7) k/uL Chloride (98-107) mmol/L Carbon Dioxide (22-30) mmol/L BUN (7-17) mg/dL Creatinine (0.52-1.04) mg/dL Glucose (74-99) mg/dL POC Glucose (mg/dL) 168 H 116 H (70-110) mg/dL Calcium (8.4-10.2) mg/dL Total Protein (6.3-8.2) g/dL Albumin (3.5-5.0) g/dL 01/15/24 Range/Units 08:55 WBC (3.8-10.6) k/uL RBC (3.80-5.40) m/uL Hgb (11.4-16.0) gm/dL Hct (34.0-46.0) % RDW (11.5-15.5) % Neutrophils # (1.3-7.7) k/uL Chloride 111 H (98-107) mmol/L Carbon Dioxide 19 L (22-30) mmol/L BUN 48 H (7-17) mg/dL Creatinine 4.23 H (0.52-1.04) mg/dL Glucose 107 H (74-99) mg/dL POC Glucose (mg/dL) (70-110) mg/dL Calcium 7.2 L (8.4-10.2) mg/dL Total Protein (6.3-8.2) g/dL Albumin (3.5-5.0) g/dL Microbiology - Last 24 Hours (Table) 01/11/24 14:15 Gram Stain - Final Shoulder - Left Wound Culture - Final Staphylococcus aureus 01/11/24 14:15 Anaerobic Culture - Preliminary Shoulder - Left 01/09/24 15:19 CSF Gram Stain - Final Cerebral Spinal Fluid CSF Culture - Final Assessment and Plan Assessment: 1. Acute kidney injury, ATN secondary to severe anemia and sepsis. Currently with indwelling Rodriguez catheter. UA shows 2+ protein large blood and WBCs 69. Ultrasound shows no hydronephrosis on the right kidney. Left kidney could not be visualized due to patient position. CT scan shows no evidence of obstructive uropathy. Status post IV fluid. 2. Acute blood loss anemia, most likely GI bleed. Being transfused packed RBCs. Iron studies show significant iron deficiency however at this time in view of positive blood cultures I will hold the IV iron until 2 to 3 days of being on antibiotics. 3. Hyperkalemia on admission associated with acute kidney injury, currently improved 4. Hypertension with blood pressure currently on the lower side. 5. UTI with urine culture growing E. coli 6. Bacteremia with blood cultures growing MSSA 7. Mild volume overload Plan: Continue off of IV fluids Repeat labs in a.m. If renal function deteriorates patient will need to start dialysis. Continue to avoid nephrotoxic agents. We will continue to monitor closely for need for renal replacement therapy Continue with oral sodium bicarb Okay to proceed with PICC line in dominant arm
[2024-01-15 11:26] LABS: Glucose,Whole Blood 130 mg/dL (70-110)
--- NOTE | 2024-01-15 12:40 | P.PN ---
Subjective Progress Note Date: 01/15/24 Hospital course: Patient is a very pleasant 78-year-old female with a past medical history of Alzheimer's dementia with baseline mentation alert and oriented x 1-2, hypertension, hyperlipidemia, hypothyroidism, [id number] diabetes mellitus, iron deficiency anemia, recurrent UTIs, and history of prior pelvic fracture with chronic pelvic pain. She presented to the emergency department with a chief complaint of worsening confusion. Patient's reports that his is normally confused but he has noticed worsening confusion and a decreased appetite over the past few days. She underwent full evaluation in the emergency department. Vital signs upon arrival show blood pressure 132/63, heart rate 96, respiratory rate 20, temp 99.6 F, and SpO2 of 100% on room air. EKG completed showing normal sinus rhythm at 98 bpm with no significant T wave or ST abnormalities showing no signs of acute ischemia upon personal review and interpretation. CT brain completed and negative for acute intracranial process with radiology report stating stable chronic appearing patchy periventricular white matter ischemic changes with atrophy. Chest x-ray completed and was negative for acute cardiopulmonary process. X-ray left shoulder completed showing large bony defect in the humeral head articular surface. Pelvis x-ray completed showing known superior and inferior pubic rami fracture on the right reporting these as subacute incompletely healed fractures but reporting the superior pubic ramus fracture has displaced now by 9 mm versus 3 mm previously. Labs were completed and reviewed. CBC showing leukocytosis with a WBC count of 19.3 and hemoglobin of 7.4 (with a baseline hemoglobin of around 7.5). BMP showing hyponatremia with sodium of 133, hyperkalemia with potassium of 5.4, hypochloremia with chloride of 97, and an acute kidney injury with BUN of 62, creatinine 2.93, and GFR of 15 with baseline creatinine of 0.9. Calcium high at 11.8. Liver profile showing no significant abnormalities with the exception of low albumin of 2.9. Initial troponin elevated at 0.251. Urinalysis positive for protein, ketones, blood, leukocyte esterase, greater than 182 RBCs, and 69 WBCs. Influenza A, influenza B, COVID, and RSV were negative. Patient was admitted under our services with consultation to cardiology, nephrology and orthopedic surgery. Troponins trended overnight resulting at 0.251, 0.432, and 0.505. Orthopedic surgery evaluated, recommending conservative measures with use of sling to left upper extremity. Orthopedic team also recommending patient may perform gentle range of motion exercises of left upper extremity as tolerated, remain nonweightbearing to left upper extremity and in regards to pubic rami fracture patient may be weightbearing as tolerated and ambulate with walker with assistance. Renal function continues to worsen. Nephrology also consulted. Patient also found to have MSSA bacteremia. ID also consulted. Currently on IV antibiotics. Source unclear. On 01/09/2024 patient had status epilepticus, did resolve with IV Ativan and IV Keppra. Neurology consulted. Patient transferred to medical ICU. Brain MRI did not show any acute process. Shoulder MRI showed loculated fluid measuring up to 4.3 cm concerning for septic arthritis. Started on antiepileptics. Mental status improved. Now back to floors. Patient is status post shoulder surgery. On 01/13/2024 patient also having large coffee- ground emesis. General surgery consulted. EGD completed today, shows hiatal hernia, erosive esophagitis, no active duodenitis, no stigmata of bleeding. Subjective: Patient seen and examined at bedside. Denies any further emesis. No acute events overnight. Physical exam: Vital signs reviewed and stable. General: appears stated age, not in acute distress Derm: Skin warm and dry, normal coloration for ethnicity., Dressing clean, dry, intact Head: Atraumatic, normocephalic and symmetric. Eyes: no lid lag, and anicteric sclera, EOMI Mouth: no lip lesions, mucus membranes moist Cardiovascular: regular rate and rhythm with normal S1S2, systolic murmur, positive posterior tibial pulses bilaterally, and cap refill < 2 seconds. Lungs: Respirations even, regular, and unlabored on room air. Lungs CTA bilaterally, no rhonchi, no rales, no wheezing, and no accessory muscle usage. Abdominal: soft, nontender to palpation, no guarding, no appreciable organomegaly Ext: Strength equal in all extremities, significant left upper extremity edema Neuro: CN II to XII grossly intact Psych: Alert, oriented x 3 Assessment and Plan of Care: Acute GI bleed, resolved Esophagitis Status post EGD On IV pantoprazole 40 twice daily General surgery note reviewed, patient may need colonoscopy later if hemoglobin continues to drop Hemoglobin currently stable Has received 2 units of PRBCs during this admission MSSA bacteremia Left shoulder septic arthritis, status post I&D UTI unlikely Nonoliguric, acute kidney injury, stable Acute on chronic Iron Deficiency anemia, status post 2 unit of PRBCs Hyperkalemia, resolved Hypokalemia, resolved Hypocalcemia, resolved Bibasilar effusions -Ortho note reviewed, recommended compression sleeve for left upper extremity for 6 to 8 weeks -Nephrology note reviewed, on oral sodium bicarb, strict I's and O's, maintain Rodriguez catheter, avoid IV iron, may need dialysis in the future -ID following, continue IV cefazolin 1 g every 24 hours -Repeat blood cultures no growth to date -Echocardiogram does not show any valvular vegetation -Continue ferrous sulfate 325 mg daily, and ascorbic acid, hold off IV iron Status post Status epilepticus Neurology continuing oral Vimpat 100 twice daily, otherwise signed off IV Ativan 2 mg every 6 hours as needed for seizures Seizure precautions Elevated troponins, type II NSTEMI -Chest pain-free, cardiology signed off -Continue aspirin 81 mg daily and atorvastatin 40 mg daily. -Patient to remain on continuous telemetry monitoring Acute metabolic encephalopathy, possibly in the setting of seizures Alzheimer's dementia Parkinson's disease -Continue daily medication regimen with carbidopa levodopa 25/100 mg tablets 4 times daily. Left shoulder and pelvic pain Right-sided superior and inferior pubic rami fractures, chronic Left shoulder humeral head collapse -Fractures possibly in the setting of seizures -Conservative management Patient did undergo I&D of left shoulder Type II non-insulin dependent diabetes mellitus -Continue to hold metformin -Continue sliding scale insulin, monitor for hypoglycemia Hypothyroidism -Continue daily medication regimen with levothyroxine 100 mcg daily. -TSH 1.200 Data and imaging reviewed: WBC 10.7, hemoglobin 8.2, bicarb 19, creatinine 4.23 CODE STATUS: DNR/DNI DVT prophylaxis: SCDs Anticipated discharge date: Clinical course to determine Anticipated discharge place: Rehab Objective - Vital Signs Vital signs: Vital Signs Temp 98.0 F 01/15/24 11:36 Pulse 88 01/15/24 11:36 Resp 17 01/15/24 11:36 BP 154/63 01/15/24 11:36 Pulse Ox 97 01/15/24 11:36 FiO2 Intake & Output 01/14/24 01/15/24 01/15/24 18:59 06:59 18:59 Intake Total 360 100 Output Total 500 Balance 360 -500 100 Weight 60.6 kg Intake: IV 100 Oral 360 Output: Urine 500 Other: Voiding Method Indwelling Catheter Indwelling Catheter Indwelling Catheter - Labs CBC & Chem 7: 01/15/24 08:55 01/15/24 08:55 Labs: Abnormal Lab Results - Last 24 Hours (Table) 01/14/24 01/14/24 01/14/24 Range/Units 11:39 16:35 19:48 WBC (3.8-10.6) k/uL RBC (3.80-5.40) m/uL Hgb (11.4-16.0) gm/dL Hct (34.0-46.0) % RDW (11.5-15.5) % Neutrophils # (1.3-7.7) k/uL Chloride 112 H (98-107) mmol/L Carbon Dioxide 20 L (22-30) mmol/L BUN 46 H (7-17) mg/dL Creatinine 4.11 H (0.52-1.04) mg/dL Glucose 137 H (74-99) mg/dL POC Glucose (mg/dL) 168 H 116 H (70-110) mg/dL Calcium 6.9 L (8.4-10.2) mg/dL Total Protein 5.1 L (6.3-8.2) g/dL Albumin 2.0 L (3.5-5.0) g/dL 01/15/24 01/15/24 01/15/24 Range/Units 08:55 08:55 11:23 WBC 10.7 H (3.8-10.6) k/uL RBC 2.94 L (3.80-5.40) m/uL Hgb 8.2 L (11.4-16.0) gm/dL Hct 25.6 L (34.0-46.0) % RDW 15.9 H (11.5-15.5) % Neutrophils # 9.1 H (1.3-7.7) k/uL Chloride 111 H (98-107) mmol/L Carbon Dioxide 19 L (22-30) mmol/L BUN 48 H (7-17) mg/dL Creatinine 4.23 H (0.52-1.04) mg/dL Glucose 107 H (74-99) mg/dL POC Glucose (mg/dL) 130 H (70-110) mg/dL Calcium 7.2 L (8.4-10.2) mg/dL Total Protein (6.3-8.2) g/dL Albumin (3.5-5.0) g/dL Microbiology - Last 24 Hours (Table) 01/11/24 14:15 Gram Stain - Final Shoulder - Left Wound Culture - Final Staphylococcus aureus 01/11/24 14:15 Anaerobic Culture - Preliminary Shoulder - Left 01/09/24 15:19 CSF Gram Stain - Final Cerebral Spinal Fluid CSF Culture - Final
--- NOTE | 2024-01-15 16:03 | P.PN ---
Subjective Progress Note Date: 01/15/24 78-year-old female patient got transferred to the intensive care unit because of ongoing seizure activity and concerns for status epilepticus. The patient was hospitalized few days back with altered mentation and confusion. She apparently has history of dementia possible evidence status of his dementia and she has some baseline confusion. It was noted that her confusion was progressively getting worse and she also had diminished appetite also. In the emergency department, the patient was hemodynamically stable. Initial CAT scan of the brain was negative for any acute intracranial process and the patient had chronic appearing patchy periventricular white matter ischemic changes and atrophy. Chest x-ray was normal. X-ray of the left shoulder was done and the patient showed a large bony defect in the left humeral head articular space and the shoulder was quite swollen. This was suspected to be related to a traumatic injury. Pelvic x-ray showed also superior inferior pubic rami fracture on the right and subacute incomplete healed fractures and the superior pubic ramus was displaced by around 9 mm. Blood work showed leukocytosis with a white cell count of 19.3 with a hemoglobin of 7.4 and she has chronic baseline anemia. The patient also had a sodium level of 133 with a potassium level 5.4 and a chloride of 97 with a BUN of 63 and a creatinine of 2.9. Calcium was also elevated at 11.8. No significant abnormalities in liver function test. The viral screen was negative. UA was suggestive of an underlying infection and UTI was suspected. The patient also had some troponin leak. As such, the patient was admitted to the hospital for further workup and treatment. She was seen by nephrology and the patient demonstrated progressive worsening in renal function and the creatinine delfina from 2.9 up to 4.05 and this morning is at 3.96. The white cell count dropped down to 9.3. Hemoglobin has been stable at 8.4 from today. The urine culture was positive for E. coli and this was an ESBL producing microorganism in the blood culture was also positive for Staph aureus/MSSA and this was identified on 2 separate blood cultures. Infectious disease was consulted and the patient was placed on IV cefazolin. Based on the staphylococcal growth in the blood and the joint swelling in the left shoulder, there is a concern for septic arthritis. MRI of the left shoulder was ordered and orthopedic consultation was also requested. The CT scan of the abdomen and pelvis showed no acute intra-abdominal process without any obstructive uropathy or calculus. Subacute fractures of the right inferior and superior rami/pubic rami as well as the right sacrum was noted. This afternoon, the patient was noted to have eye twitching and gaze deviation to the left and seizure-like activity. Subsequently, in the morning, the patient continued to have left gaze deviation with eye twitching and seizure- like tonic-clonic seizure activity as reported by the nursing staff that lasted less than a minute. The patient continued to have recurrent seizures following that lasting up to 5 minutes with the left gaze deviation and generalized clonic activity. The patient had been given a total of 2 mg of IV Ativan during the first episode another 2 mg of Ativan during the second episode bringing her up to a total of 4 mg. She was loaded with Keppra 500 mg IV and dose adjustment wa s done based on the underlying renal failure. Noted the patient does not have any history of seizure activity or seizure disorder. She is currently afebrile. I was asked to move the patient to the intensive care unit for further monitoring. A repeat CAT scan of the brain was done and it showed atrophy with chronic appearing periventricular white matter ischemic changes and the findings were essentially stable. At this point in time, the patient is on 2 L of oxygen by nasal cannula. The patient remains on IV cefazolin. On today's evaluation of 01/10/2024, the patient is being seen for a follow-up. Her neurostatus is improved slightly compared to yesterday and the patient was able to answer some simple commands. No focal neurological deficits. No facial asymmetry. Pupils are equal reactive to light. Lumbar puncture was done yesterday and the patient has only 1 nucleated cell without any significant elevation in the CSF protein. Cultures are still negative. This is essentially negative LP . There is CSF RBC was 17. CSF glucose was 107. No neck stiffness. No further seizure activity and the patient is currently on Vimpat 100 mg IV every 12 hours. MRI of the brain is to be done today. EEG was completed and showed encephalopathy and there was no indication for an acute or ongoing seizure activity. The plan for now is to proceed with an MRI of the brain and the patient is also going to need an MRI of the shoulder with concerns of septic arthritis. Ultrasound Doppler of the left upper extremity was also done today. This was done essentially to rule out DVT and the results are still pending for now. The patient is afebrile. The patient is hemodynamically s table. Pulse ox is 99% on 2 L of oxygen by nasal cannula. Remains on normal saline at rate of 75 cc an hour. ID is on the case. The patient was growing ESBL producing E. coli in the urine however she did not have any urinary symptoms and the repeat urine cultures have been negative. Based on that, no further antibiotic coverage was recommended in that regard. On today's evaluation of 01/11/2024, the patient is being seen for a follow-up. She is alert and communicating at this point in time. She was transferred out of the intensive care unit. The no further seizure activity and the patient remains on Vimpat. Lumbar puncture was negative. No neck stiffness. No focal neurological deficits. The patient remains on IV cefazolin regarding her staphylococcal septicemia. The patient also had a MRI of the brain that showed no acute abnormalities. MRI of the shoulder was quite abnormal and the patient was Considered to have possibility of septic arthritis. The patient had severe osseous and periarticular and surrounding soft tissue edema along with severe bone loss particularly in the articular surface of the head and underlying joints/bursa effusion as well as located fluid in the lateral deltoid shelf was seen measuring 4.3 cm in size and this made the possibility of septic arthritis more concerning. Based on that, the patient was taken to the operating room and the patient underwent a arthrotomy of the left shoulder along with irrigation debridement and incision and drainage of the left septic shoulder. The patient was found to have significant destruction involving the left humeral head. The bone was debrided. There was thickened synovial tissue that was excised. The joint was then copiously irrigated. A deep drain was placed into the glenohumeral joint. The skin was sutured with appropriate dressing was applied and the patient was brought back to the medical floor. Currently she is on 2 L of oxygen nasal cannula with a pulse ox of 92%. The blood work from today shows a WBC count 9.2, hemoglobin 7.3 and a platelet count of 257. BUN is at 49 with a creatinine of 4.06 and a sodium levels at 138. No other significant events overnight. MRI of the brain was nonspecific and showed atrophy and chronic appearing periventricular white matter ischemic changes. On 01/12/2024, the patient is being seen for a follow-up. Patient is doing well. No specific complaints. She underwent an orthopedic intervention which included arthrotomy of the left shoulder and irrigation debridement and incision and drainage of a left septic joint/arthritis. The cultures are still negative for now. No significant pain. Left upper extremity remains slightly swollen. The patient has no altered mentation. No seizure activity. She is calm and comfortable. She has dropped her hemoglobin down to 6.4 and the patient will be receiving unit of packed RBC. She continues to have chronic kidney disease with a BUN of 46 and a creatinine of 4.05 and her renal function remained stable. Sodium level is 138, bicarb is 19 And anion gap is at 7. The patient remains on IV cefazolin for now. The patient is also on oxygen at 2 L and she was transitioned to room air oxygen. Her pulse ox remains around 97%. No respiratory distress. No focal neurological deficits. On today's evaluation of 01/13/2024, the patient is being seen for a follow-up. The patient has no specific complaints. The left shoulder was debrided and the Gram stain and culture still negative and the patient remains on IV cefazolin. Renal function remained stable with a BUN of 45 with a creatinine of 4.1. No seizure activity. Hemodynamically stable. Remains on oxygen at 2 L/min nasal c annula with a pulse ox of 96%. White cell count of 8.5 with a hemoglobin of 8.1. No other new complaints otherwise for now. Resting comfortably in bed. Nephrology on the case regarding care acute on chronic kidney disease. ID is on the case. Orthopedic surgery is on the case. Neuro is on the case. The patient is currently on Vimpat. She has generalized global weakness yet no focal neurological deficit and no seizure activity. Noted the edema. No encephalopathy. On today's evaluation of 01/14/2024, the patient is resting comfortably in bed. No specific complaints. She was seen by general surgery regarding possibility of hematemesis during the current admission. Note that the patient's hemoglobin dropped down to as low as 6.4 and currently is up to 7.9. The plan is to do EGD at a later stage. The patient remains on room air oxygen with a pulse ox of 91%. No respiratory difficulties. No altered mentation. No seizure activity. She remains on IV cefazolin. Shoulder wound is showing presumptive Staph aureus, awaiting final cultures and sensitivities. Patient is seen today January 15, 2024 in follow-up on the selective care unit. She is currently sitting up in a chair. Awake and alert in no acute distress. No further seizure activity. She is still having ongoing issues with nausea and vomiting. She is maintaining O2 saturations in the 90s on 2 L/min per nasal ca nnula. Afebrile. Hemodynamically stable. Left shoulder wound is positive for methicillin sensitive Staphylococcus aureus. She remains on cefazolin. Objective - Vital Signs Vital signs: Vital Signs Temp 98.0 F 01/15/24 11:36 Pulse 88 01/15/24 14:00 Resp 17 01/15/24 14:00 BP 154/63 01/15/24 11:36 Pulse Ox 97 01/15/24 11:36 FiO2 Intake & Output 01/14/24 01/15/24 01/15/24 18:59 06:59 18:59 Intake Total 360 100 Output Total 500 Balance 360 -500 100 Weight 60.6 kg Intake: IV 100 Oral 360 Output: Urine 500 Other: Voiding Method Indwelling Catheter Indwelling Catheter Indwelling Catheter - Exam General: This is a 78-year-old female, appears stated age. Sitting up in a chair, currently on 2 L of oxygen by nasal cannula. Derm: Skin warm and dry, normal coloration for ethnicity. Head: Atraumatic, normocephalic and symmetric. Eyes: no lid lag, and anicteric sclera, EOMI Mouth: no lip lesions, mucus membranes moist Cardiovascular: regular rate and rhythm with normal S1S2, systolic murmur, positive posterior tibial pulses bilaterally, and cap refill < 2 seconds. Lungs: Respirations even, regular, and unlabored on room air. Lungs CTA bilaterally, no rhonchi, no rales, no wheezing, and no accessory muscle usage. Abdominal: soft, nontender to palpation, no guarding, no appreciable organomegaly Ext: Left upper extremity in a sling, left arm edema, along with postsurgical changes in the left upper extremity with a drain and the dressing is dry and not soaked at this point in time. Neuro: Alert. Able to move her arms and legs without any limitation. Generalized profound weakness in all 4 extremities. Pupils are equal reactive to light. No facial asymmetry. Positive cough and gag. Responding to simple commands and answering simple questions. - Labs CBC & Chem 7: 01/15/24 08:55 01/15/24 08:55 Labs: Abnormal Lab Results - Last 24 Hours (Table) 01/14/24 01/14/24 01/15/24 Range/Units 16:35 19:48 08:55 WBC 10.7 H (3.8-10.6) k/uL RBC 2.94 L (3.80-5.40) m/uL Hgb 8.2 L (11.4-16.0) gm/dL Hct 25.6 L (34.0-46.0) % RDW 15.9 H (11.5-15.5) % Neutrophils # 9.1 H (1.3-7.7) k/uL Chloride (98-107) mmol/L Carbon Dioxide (22-30) mmol/L BUN (7-17) mg/dL Creatinine (0.52-1.04) mg/dL Glucose (74-99) mg/dL POC Glucose (mg/dL) 168 H 116 H (70-110) mg/dL Calcium (8.4-10.2) mg/dL 01/15/24 01/15/24 Range/Units 08:55 11:23 WBC (3.8-10.6) k/uL RBC (3.80-5.40) m/uL Hgb (11.4-16.0) gm/dL Hct (34.0-46.0) % RDW (11.5-15.5) % Neutrophils # (1.3-7.7) k/uL Chloride 111 H (98-107) mmol/L Carbon Dioxide 19 L (22-30) mmol/L BUN 48 H (7-17) mg/dL Creatinine 4.23 H (0.52-1.04) mg/dL Glucose 107 H (74-99) mg/dL POC Glucose (mg/dL) 130 H (70-110) mg/dL Calcium 7.2 L (8.4-10.2) mg/dL Microbiology - Last 24 Hours (Table) 01/11/24 14:15 Gram Stain - Final Shoulder - Left Wound Culture - Final Staphylococcus aureus 01/11/24 14:15 Anaerobic Culture - Preliminary Shoulder - Left Assessment and Plan Assessment: New onset seizure with status epilepticus controlled on Vimpat and the patient has not had any seizure episodes over the past 24 hours. EEG showing enc ephalopathy without any ongoing seizure activity. The patient is free of any seizure activity. MRI of the brain showed chronic periventricular white matter disease and atrophy. No acute abnormalities. Mental status is back to normal. MSSA bacteremia/sepsis currently on IV cefazolin, no fevers. No hemodynamic instability. Left glenohumeral joint septic arthritis and subdeltoid abscess. The patient had left shoulder swelling, along with pain.. The patient has left humeral head collapse, consider AVN versus neuropathic arthropathy. Possibility of a septic arthritis cannot be ruled out. Fractures could be related to seizures and the patient is currently wearing a sling and orthopedic surgery is on the case. MRI of the shoulder was indicative of septic arthritis and the patient underwent arthrotomy and debridement and irrigation of the left shoulder along with incision and drainage of the left septic shoulder joint. The patient is currently postop day # 4. The cultures are also showing staph aureus. Pelvic fracture related to seizure/fall. Pelvic fracture was present appro ximately 6 weeks ago, and the patient has superior and inferior pubic rami fracture on the right Acute kidney injury, creatinine remains stable and unchanged, creatinine is stable and nephrology on the case Hematemesis, awaiting EGD by general surgery. Alzheimer's dementia Hypertension Hyperlipidemia Hypothyroidism [id number] diabetes mellitus Iron deficiency anemia History of recurrent urine tract infection most recent infections with E. coli Abnormal troponins, consider type II myocardial ischemia, echo of the heart shows a preserved LV function with a normal ejection fraction of 55 to 60% History of Parkinson's disease DNR/DNI CODE STATUS Plan: The patient was seen and evaluated Labs and medications reviewed Remains on cefazolin DNR/DNI CODE STATUS We will continue to follow I have personally seen and examined the patient, performed the documentation and the assessment and plan as written. Number of minutes spent on the visit: 10.
[2024-01-15 16:24] LABS: Glucose,Whole Blood 125 mg/dL (70-110)
[2024-01-15 20:09] LABS: Glucose,Whole Blood 131 mg/dL (70-110)
[2024-01-15] MEDS: ACETAMINOPHEN TAB 325 MG TAB PO PRN (21:17)
[2024-01-16 06:20] LABS: Glucose,Whole Blood 115 mg/dL (70-110)
--- NOTE | 2024-01-16 08:51 | P.PCN ---
Date of Procedure: 01/16/24 Preoperative Diagnosis: Bacteremia, left infected shoulder, need for long-term IV antibiotics Postoperative Diagnosis: Same Procedure(s) Performed: Right basilic vein PICC placement under fluoroscopic guidance Anesthesia: local Surgeon: Dre Charles Estimated Blood Loss (ml): 5 Pathology: none sent Condition: stable Disposition: floor Description of Procedure: After written and informed consent was obtained the patient and all risks, benefits and competitions were described the patient was brought to the [facility] and laid in a supine position with the patients right arm outstretched on an armboard. The area of the right arm was prepped and draped in usual sterile fashion. Timeout was performed in normal fashion. Utilizing existing catheter and the basilic vein a wire was placed and under fluoroscopy shown to be in appropriate position and the existing catheter was removed. Introducer sheath was then placed. The catheter was measured and cut to the appropriate length which was 38 cm. The catheter was then guided through the breakaway sheath and the sheath was removed with good positioning was visualized under fluoroscopy. The catheter was pulled and flushed easily. It was then secured in place in normal fashion. Patient tolerated the procedure well was sent back to his room for recovery.
[2024-01-16 11:19] LABS: Anisocytosis Slight; Basophils % (A) 0 %; Eosinophils % (A) 0 %; HCT 25.8 % (34.0-46.0); HGB 8.1 gm/dL (11.4-16.0); Hypochromasia Slight; Lymphocytes % (A) 10 %; MCH 27.4 pg (25.0-35.0); MCHC 31.5 g/dL (31.0-37.0); MCV 87.2 fL (80.0-100.0); Mean Platelet Volume 7.3; Monocytes # (A) 0.3 k/uL (0-1.0); Monocytes % (A) 3 %; Neutrophils # (A) 8.6 k/uL (1.3-7.7); Neutrophils % (A) 85 %; Platelet Count 317 k/uL (150-450); RBC 2.96 m/uL (3.80-5.40); RDW 16.3 % (11.5-15.5)
--- NOTE | 2024-01-16 11:35 | P.PN ---
Subjective Progress Note Date: 01/16/24 Hospital course: Patient is a very pleasant 78-year-old female with a past medical history of Alzheimer's dementia with baseline mentation alert and oriented x 1-2, hypertension, hyperlipidemia, hypothyroidism, [id number] diabetes mellitus, iron deficiency anemia, recurrent UTIs, and history of prior pelvic fracture with chronic pelvic pain. She presented to the emergency department with a chief complaint of worsening confusion. Vital signs upon arrival show blood pressure 132/63, heart rate 96, respiratory rate 20, temp 99.6 F, and SpO2 of 100% on room air. EKG completed showing normal sinus rhythm at 98 bpm with no significant T wave or ST abnormalities. CT brain negative for acute intracranial process with radiology report stating stable chronic appearing patchy periventricular white matter ischemic changes with atrophy. Chest x-ray was negative for acute cardiopulmonary process. X-ray left shoulder showing large bony defect in the humeral head articular surface. Pelvis x-ray showing known superior and inferior pubic rami fracture on the right reporting these as subacute incompletely healed fractures but reporting the superior pubic ramus fracture has displaced now by 9 mm versus 3 mm previously. CBC showing leukocytosis with a WBC count of 19.3 and hemoglobin of 7.4 (with a baseline hemoglobin of around 7.5). BMP showing sodium of 133, potassium of 5.4, an acute kidney injury with BUN of 62, creatinine 2.93, and GFR of 15 with baseline creatinine of 0.9. Calcium high at 11.8. Liver profile showing low albumin of 2.9. Initial troponin elevated at 0.251. Urinalysis positive for protein, ketones, blood, leukocyte esterase, greater than 182 RBCs, and 69 WBCs. Influenza A, influenza B, COVID, and RSV were negative. Patient was admitted under our services with consultation to cardiology, nephrology and orthopedic surgery. Troponins trended overnight resulting at 0.251, 0.432, and 0.505. Cardiology recommended medical management, NSTEMI likely type II. Orthopedic surgery recommending conservative measures with use of sling to left upper extre mity. Orthopedic team also recommending patient may perform gentle range of motion exercises of left upper extremity as tolerated, remain nonweightbearing to left upper extremity and in regards to pubic rami fracture patient may be weightbearing as tolerated and ambulate with walker with assistance. Patient also found to have MSSA bacteremia. ID also consulted. Currently on IV cefazolin. Shoulder MRI showed loculated fluid measuring up to 4.3 cm concerning for septic arthritis. He underwent I&D. Now has a PICC line, needs 6 weeks of IV antibiotics. On 01/09/2024 patient had status epilepticus, did resolve with IV Ativan and IV Keppra. Neurology consulted. Patient transferred to medical ICU. Brain MRI did not show any acute process. Started on antiepileptics. Mental status improved. Now back to floors. On 01/13/2024 patient also having large coffee-ground emesis. General surgery consulted. EGD completed today, shows hiatal hernia, erosive esophagitis, no active duodenitis, no stigmata of bleeding. Renal function continued to worsen. Patient will need hemodialysis. Once stable, she will need to go to subacute rehab. Subjective: Patient seen and examined at bedside. Continues to have nausea, unable to tolerate oral intake. Minimal urine output. Rodriguez catheter in place. Physical exam: Vital signs reviewed and stable. General: appears stated age, not in acute distress Derm: Skin warm and dry, normal coloration for ethnicity, Shoulder dressing clean, dry, intact Head: Atraumatic, normocephalic and symmetric. Eyes: no lid lag, and anicteric sclera, EOMI Mouth: no lip lesions, mucus membranes moist Cardiovascular: regular rate and rhythm with normal S1S2, systolic murmur Lungs: Respirations even, regular, and unlabored on room air. Lungs CTA bilaterally, no rhonchi, no rales, no wheezing, and no accessory muscle usage. Abdominal: soft, nontender to palpation, no guarding, no appreciable organomegaly Ext: Strength equal in all extremities, significant left upper extremity edema, otherwise generalized anasarca Neuro: CN II to XII grossly intact Psych: Alert, oriented x 3, flat affect Assessment and Plan of Care: Nonoliguric, acute kidney injury Hyperkalemia, resolved Hypokalemia, resolved Hypocalcemia, resolved Discussed management with nephrology, patient will need hemodialysis as renal function continues to worsen Continue oral bicarb 650 twice daily Acute GI bleed, resolved Esophagitis Acute on chronic Iron Deficiency anemia Status post EGD Hemoglobin currently stable On IV pantoprazole 40 twice daily General surgery following Hemoglobin currently stable Has received 2 units of PRBCs during this admission Avoid IV iron Continue ferrous sulfate 325 daily, and ascorbic acid Continue darbepoetin 40 mcg subcu q. 7 days MSSA bacteremia Left shoulder septic arthritis, status post I&D Discussed management with ID, continue IV cefazolin 1 g every 24 hours, will need 6 weeks of IV antibiotics, PICC line in place Echocardiogram did not show any valvular vegetation Repeat blood cultures have been negative Ortho recommending compression sleeve for left upper extremity for 6 to 8 weeks Status post status epilepticus Seizure disorder Neurology continuing oral Vimpat 100 twice daily, otherwise signed off IV Ativan 2 mg every 6 hours as needed for seizures Seizure precautions Elevated troponins, type II NSTEMI -Chest pain-free, cardiology signed off -Continue aspirin 81 mg daily and atorvastatin 40 mg daily. -Patient to remain on continuous telemetry monitoring Acute metabolic encephalopathy, resolved History of Alzheimer's dementia History of Parkinson's disease -Continue carbidopa levodopa 25/100 mg tablets 4 times daily. Left shoulder and pelvic pain Right-sided superior and inferior pubic rami fractures, chronic Left shoulder humeral head collapse -Fractures possibly in the setting of seizures -Conservative management Patient did undergo I&D of left shoulder Type II non-insulin dependent diabetes mellitus -Continue to hold metformin -Continue sliding scale insulin, monitor for hypoglycemia Hypothyroidism -Continue daily medication regimen with levothyroxine 100 mcg daily. -TSH 1.200 Data and imaging reviewed: WBC 10, hemoglobin 8.1, blood sugars range between 1 30-1 03, BMP pending, will be reviewed when available CODE STATUS: DNR/DNI DVT prophylaxis: SCDs Anticipated discharge date: Clinical course to determine Anticipated discharge place: Pending clinical course Objective - Vital Signs Vital signs: Vital Signs Temp 97.9 F 01/15/24 20:03 Pulse 81 01/16/24 10:33 Resp 16 01/16/24 10:33 BP 145/68 01/16/24 09:21 Pulse Ox 97 01/16/24 09:21 FiO2 Intake & Output 01/15/24 01/16/24 01/16/24 18:59 06:59 18:59 Intake Total 100 20 Output Total 200 450 Balance -100 -430 Weight 60.6 kg Intake: IV 100 20 Invasive Line 4 20 Output: Urine 200 450 Other: Voiding Method Indwelling Catheter Indwelling Catheter External Catheter - Labs CBC & Chem 7: 01/16/24 10:56 01/15/24 08:55 Labs: Abnormal Lab Results - Last 24 Hours (Table) 01/15/24 01/15/24 01/16/24 Range/Units 16:22 20:07 06:18 RBC (3.80-5.40) m/uL Hgb (11.4-16.0) gm/dL Hct (34.0-46.0) % RDW (11.5-15.5) % Neutrophils # (1.3-7.7) k/uL POC Glucose (mg/dL) 125 H 131 H 115 H (70-110) mg/dL 01/16/24 Range/Units 10:56 RBC 2.96 L (3.80-5.40) m/uL Hgb 8.1 L (11.4-16.0) gm/dL Hct 25.8 L (34.0-46.0) % RDW 16.3 H (11.5-15.5) % Neutrophils # 8.6 H (1.3-7.7) k/uL POC Glucose (mg/dL) (70-110) mg/dL Microbiology - Last 24 Hours (Table) 01/11/24 14:15 Gram Stain - Final Shoulder - Left Wound Culture - Final Staphylococcus aureus
[2024-01-16 11:50] LABS: Glucose,Whole Blood 125 mg/dL (70-110)
--- NOTE | 2024-01-16 12:11 | IR ---
EXAMINATION TYPE: IR cvc insert >=5 years DATE OF EXAM: 01/16/2024 FLUOROSCOPY Right PICC line placement for ABX, 38CM, RIGHT BASILLIC, 0.5MINS, [id number]. 147 images provided.
--- NOTE | 2024-01-16 12:18 | P.PN ---
Subjective Patient is seen for follow-up for acute kidney injury. This morning patient is complaining of nausea. Her oral intake has been poor. Urine output has been borderline with 24-hour output charted at 650 ML. Rodriguez catheter was discontinued today. Patient continues to have edema off her upper and lower extremities although she is not significantly short of breath. Given the persistently elevated creatinine at 4.1-4.2 mg/dL and symptoms of poo r oral intake with emesis noted today I will proceed with renal replacement therapy. Discussed with patient. She is agreeable. I will talk to her as well. Objective - Vital Signs Vital signs: Vital Signs Temp 97.9 F 01/15/24 20:03 Pulse 77 01/16/24 11:43 Resp 18 01/16/24 11:43 BP 137/69 01/16/24 11:43 Pulse Ox 96 01/16/24 11:43 FiO2 Intake & Output 01/15/24 01/16/24 01/16/24 18:59 06:59 18:59 Intake Total 100 20 Output Total 200 450 Balance -100 -430 Weight 60.6 kg Intake: IV 100 20 Invasive Line 4 20 Output: Urine 200 450 Other: Voiding Method Indwelling Catheter Indwelling Catheter External Catheter - Exam Patient is awake, comfortable, no acute distress Examination of the heart S1 and S2 Examination of the lungs decreased breath sounds at the bases Abdomen is soft nontender Examination of lower extremities shows 1+ bilateral edema, upper and lower extremities worse in the left upper extremity [employer] exam shows patient is moving all 4 extremities. - Labs CBC & Chem 7: 01/16/24 10:56 01/15/24 08:55 Labs: Abnormal Lab Results - Last 24 Hours (Table) 01/15/24 01/15/24 01/16/24 Range/Units 16:22 20:07 06:18 RBC (3.80-5.40) m/uL Hgb (11.4-16.0) gm/dL Hct (34.0-46.0) % RDW (11.5-15.5) % Neutrophils # (1.3-7.7) k/uL POC Glucose (mg/dL) 125 H 131 H 115 H (70-110) mg/dL 01/16/24 01/16/24 Range/Units 10:56 11:49 RBC 2.96 L (3.80-5.40) m/uL Hgb 8.1 L (11.4-16.0) gm/dL Hct 25.8 L (34.0-46.0) % RDW 16.3 H (11.5-15.5) % Neutrophils # 8.6 H (1.3-7.7) k/uL POC Glucose (mg/dL) 125 H (70-110) mg/dL Microbiology - Last 24 Hours (Table) 01/11/24 14:15 Gram Stain - Final Shoulder - Left Wound Culture - Final Staphylococcus aureus Assessment and Plan Assessment: 1. Acute kidney injury, ATN secondary to severe anemia and sepsis. UA shows 2+ protein large blood and WBCs 69. Ultrasound shows no hydronephrosis on the right kidney. Left kidney could not be visualized due to patient position. CT scan shows no evidence of obstructive uropathy. Status post IV fluid. Renal function has not improved and patient is now complaining of nausea and vomiting. Given the borderline urine output and worsening symptoms of possible uremia, I will proceed with renal replacement therapy 2. Acute blood loss anemia, most likely GI bleed. Being transfused packed RBCs. Iron studies show significant iron deficiency however at this time in view of positive blood cultures I will hold the IV iron until 2 to 3 days of being on antibiotics. 3. Hyperkalemia on admission associated with acute kidney injury, currently improved 4. Hypertension with blood pressure currently on the lower side. 5. UTI with urine culture growing E. coli 6. Bacteremia with blood cultures growing MSSA 7. Mild volume overload with significant third spacing Plan: Continue off of IV fluids Proceed with renal replacement therapy. Consult vascular surgery for dialysis catheter placement and we will plan for first treatment tomorrow. Continue with them antibiotics Continue Aranesp Continue with sodium bicarb for now.
--- NOTE | 2024-01-16 13:18 | P.PN ---
Subjective Progress Note Date: 01/16/24 CHIEF COMPLAINT: Coffee-ground emesis HISTORY OF PRESENT ILLNESS: Patient status post EGD results showing diaphragmatic hiatal hernia and erosive esophagitis. Patient had further black liquidy emesis today. Denies abdominal pain. Patient with poor kidney function and scheduled to start hemodialysis today. Hemoglobin stable at 8.1 PHYSICAL EXAM: VITAL SIGNS: Reviewed. GENERAL: Well-developed in no acute distress. HEENT: No sclera icterus. Extraocular movements grossly intact. Moist buccal mucosa. Head is atraumatic, normocephalic. ABDOMEN: Soft. Nondistended. Nontender. NEUROLOGIC: Alert and oriented. Cranial nerves II through XII grossly intact. ASSESSMENT: 1. Hematemesis 2. Status post EGD with evidence of hiatal hernia and esophagitis 3. Acute blood loss anemia with GI bleed PLAN: -Tagged RBC scan ordered for GI bleed -Patient may need small bowel capsule endoscopy for evaluation of bleeding from small bowel. This can be completed outpatient. -Continue to monitor hemoglobin -Continue to monitor for any signs or symptoms of bleeding -Downgrade diet to full liquids -Continue IV Protonix Physician Health Care / Medical Job Titles note has been reviewed by physician. Signing provider agrees with the documented findings, assessment, and plan of care. Please see additional documentation below CHIEF COMPLAINT: GI bleed HISTORY OF PRESENT ILLNESS: The patient is a 78-year-old female with history hematemesis. Upper endoscopy demonstrated no acute GI bleed, gastric ulcers, duodenal ulcers or erosive esophagitis. No further black emesis today. No abdominal pain. No blood in the stools. Patient is on hemodialysis. ROS: No fevers or chills. No new chest pain. No productive sputum PHYSICAL EXAM: VITAL SIGNS: Reviewed CONSTITUTIONAL: Well developed and in no acute distress. EYES: Conjuctivae without sclera icterus. Extraocular movements grossly intact. HEAD, EARS, NOSE, THROAT: Moist buccal mucosa. Head is atraumatic, normocephalic. Hears conversational speech. No nasal drainage. RESPIRATORY: Non-labored respirations and equal bilateral excursions. CARDIOVASCULAR: Palpable 2+ radial pulses. ABDOMEN: No peritonitis. MUSCULOSKELETAL: No gross deformity of the lower extremities noted. No clubbing. No cyanosis. SKIN: Good skin turgor. Well perfused. NEUROLOGIC: Cranial nerves II through XII grossly intact. No focal or lateralizing signs. PSYCH: Alert to person. CLINICAL LABS: Reviewed. Hemoglobin 8.1, anemia ASSESSMENT: 1. Acute blood loss anemia with GI bleed 2. Hematemesis PLAN: 1. Recommend tagged RBC scan 2. May need small bowel follow-through pending additional studies Objective - Vital Signs Vital signs: Vital Signs Temp 97.9 F 01/15/24 20:03 Pulse 81 01/16/24 10:33 Resp 16 01/16/24 10:33 BP 145/68 01/16/24 09:21 Pulse Ox 97 01/16/24 09:21 FiO2 Intake & Output 01/15/24 01/16/24 01/16/24 18:59 06:59 18:59 Intake Total 100 20 Output Total 200 450 Balance -100 -430 Weight 60.6 kg Intake: IV 100 20 Invasive Line 4 20 Output: Urine 200 450 Other: Voiding Method Indwelling Catheter Indwelling Catheter External Catheter - Labs CBC & Chem 7: 01/21/24 07:25 01/22/24 07:28 Labs: Abnormal Lab Results - Last 24 Hours (Table) 01/15/24 01/15/24 01/16/24 Range/Units 16:22 20:07 06:18 RBC (3.80-5.40) m/uL Hgb (11.4-16.0) gm/dL Hct (34.0-46.0) % RDW (11.5-15.5) % Neutrophils # (1.3-7.7) k/uL POC Glucose (mg/dL) 125 H 131 H 115 H (70-110) mg/dL 01/16/24 Range/Units 10:56 RBC 2.96 L (3.80-5.40) m/uL Hgb 8.1 L (11.4-16.0) gm/dL Hct 25.8 L (34.0-46.0) % RDW 16.3 H (11.5-15.5) % Neutrophils # 8.6 H (1.3-7.7) k/uL POC Glucose (mg/dL) (70-110) mg/dL Microbiology - Last 24 Hours (Table) 01/11/24 14:15 Gram Stain - Final Shoulder - Left Wound Culture - Final Staphylococcus aureus
[2024-01-16 13:21] LABS: African American GFR (CKD) 11 (>60 ml/min/1.73 sqM); Anion Gap 9 mmol/L; Blood Urea Nitrogen 49 mg/dL (7-17); Calcium 7.1 mg/dL (8.4-10.2); Carbon Dioxide 18 mmol/L (22-30); Chloride 113 mmol/L (98-107); Glucose 106 mg/dL (74-99); Non-African American GFR(CKD) 10 (>60 ml/min/1.73 sqM); Potassium 4.1 mmol/L (3.5-5.1); Sodium 140 mmol/L (137-145)
--- NOTE | 2024-01-16 14:30 | P.PN ---
Subjective Progress Note Date: 01/15/24 Principal diagnosis: Reason for follow-up is MSSA bacteremia Patient is a 78-year-old female past medical history pertinent for diabetes mellitus hypertension hyperlipidemia dementia and depression brought into the hospital for evaluation of worsening dementia/confusion noticed to have positive UA and did have MSSA bacteremia also abnormality to the left humeral head on the x-ray.Patient is status post Arthrotomy left shoulder/irrigation and debridement/incision and drainage left septic shoulder completed on 01/11/2024. On today's evaluation that is 01/15/2024, Patient is afebrile patient is currently on 2 L nasal cannula oxygen and denies having any shortness of breath, the patient denies any chest pain or cough, the patient has been complaining of nausea and did have recent vomiting no abdominal pain and no diarrhea has been reported Patient white count is 10.7, creatinine is 4.23 Objective - Vital Signs Vital signs: Vital Signs Temp 98.0 F 01/15/24 11:36 Pulse 88 01/15/24 11:36 Resp 17 01/15/24 11:36 BP 154/63 01/15/24 11:36 Pulse Ox 97 01/15/24 11:36 FiO2 Intake & Output 01/14/24 01/15/24 01/15/24 18:59 06:59 18:59 Intake Total 360 100 Output Total 500 Balance 360 -500 100 Weight 60.6 kg Intake: IV 100 Oral 360 Output: Urine 500 Other: Voiding Method Indwelling Catheter Indwelling Catheter Indwelling Catheter - Exam GENERAL DESCRIPTION: An elderly female lying in bed in no distress RESPIRATORY SYSTEM: Unlabored breathing , decreased breath sounds at bases HEART: S1 S2 regular rate and rhythm , ABDOMEN: Soft , no tenderness EXTREMITIES: No edema feet - Labs CBC & Chem 7: 01/16/24 10:56 01/16/24 10:56 Labs: Abnormal Lab Results - Last 24 Hours (Table) 01/14/24 01/14/24 01/14/24 Range/Units 11:39 11:39 16:35 WBC (3.8-10.6) k/uL RBC 2.87 L (3.80-5.40) m/uL Hgb 7.9 L (11.4-16.0) gm/dL Hct 24.5 L (34.0-46.0) % RDW 15.8 H (11.5-15.5) % Neutrophils # (1.3-7.7) k/uL Chloride 112 H (98-107) mmol/L Carbon Dioxide 20 L (22-30) mmol/L BUN 46 H (7-17) mg/dL Creatinine 4.11 H (0.52-1.04) mg/dL Glucose 137 H (74-99) mg/dL POC Glucose (mg/dL) 168 H (70-110) mg/dL Calcium 6.9 L (8.4-10.2) mg/dL Total Protein 5.1 L (6.3-8.2) g/dL Albumin 2.0 L (3.5-5.0) g/dL 01/14/24 01/15/24 01/15/24 Range/Units 19:48 08:55 08:55 WBC 10.7 H (3.8-10.6) k/uL RBC 2.94 L (3.80-5.40) m/uL Hgb 8.2 L (11.4-16.0) gm/dL Hct 25.6 L (34.0-46.0) % RDW 15.9 H (11.5-15.5) % Neutrophils # 9.1 H (1.3-7.7) k/uL Chloride 111 H (98-107) mmol/L Carbon Dioxide 19 L (22-30) mmol/L BUN 48 H (7-17) mg/dL Creatinine 4.23 H (0.52-1.04) mg/dL Glucose 107 H (74-99) mg/dL POC Glucose (mg/dL) 116 H (70-110) mg/dL Calcium 7.2 L (8.4-10.2) mg/dL Total Protein (6.3-8.2) g/dL Albumin (3.5-5.0) g/dL 01/15/24 Range/Units 11:23 WBC (3.8-10.6) k/uL RBC (3.80-5.40) m/uL Hgb (11.4-16.0) gm/dL Hct (34.0-46.0) % RDW (11.5-15.5) % Neutrophils # (1.3-7.7) k/uL Chloride (98-107) mmol/L Carbon Dioxide (22-30) mmol/L BUN (7-17) mg/dL Creatinine (0.52-1.04) mg/dL Glucose (74-99) mg/dL POC Glucose (mg/dL) 130 H (70-110) mg/dL Calcium (8.4-10.2) mg/dL Total Protein (6.3-8.2) g/dL Albumin (3.5-5.0) g/dL Microbiology - Last 24 Hours (Table) 01/11/24 14:15 Gram Stain - Final Shoulder - Left Wound Culture - Final Staphylococcus aureus 01/11/24 14:15 Anaerobic Culture - Preliminary Shoulder - Left 01/09/24 15:19 CSF Gram Stain - Final Cerebral Spinal Fluid CSF Culture - Final Assessment and Plan (1) MSSA bacteremia Current Visit: Yes Status: Acute Code(s): R78.81 - BACTEREMIA; B95.61 - METHICILLIN SUSCEP STAPH INFCT CAUSING DIS CLASSD ELSR SNOMED Code(s): 410878935 (2) Septic arthritis of shoulder, left Current Visit: Yes Status: Acute Code(s): M00.9 - PYOGENIC ARTHRITIS, UNSPECIFIED SNOMED Code(s): 72033259 Plan: 1-1patient is a 78-year-old female with multiple comorbidities presenting to the hospital with confusion and mental status changes did have a low-grade fever elevated white count and now with evidence of MSSA bacteremia source is likely left shoulder which was large bony defect of the humeral head articular surface which was not seen on October 30, 2023 x-ray as currently no other obvious focus for this bacteremia, MRI of the left shoulder is currently pending 2-blood cultures repeated on 01/06/2024 as well as 01/07/2024 has been negative 3-patient is also growing ESBL E. coli in the urine however the patient denies urinary symptoms question of possible asymptomatic bacteriuria, the patient repeat urine cultures are negative, no need for antibiotics 4-patient MRI suspicious for septic arthritis of the glenohumeral joint on the left side patient is status post arthrotomy left shoulder/irrigation and debridement/incision and drainage left septic shoulder completed on 01/11/2024, cultures currently growing MSSA ding 5patient is afebrile the patient white count normal, patient to continue with the cefazolin, discussed with the nephrology has been okay for PICC line placement which has been ordered Dictation was produced using [employer] dictation software. please excuse any grammatical, word or spelling errors. Time with Patient: Less than 30
--- NOTE | 2024-01-16 14:31 | P.PN ---
Subjective Progress Note Date: 01/16/24 Principal diagnosis: Reason for follow-up is MSSA bacteremia Patient is a 78-year-old female past medical history pertinent for diabetes mellitus hypertension hyperlipidemia dementia and depression brought into the hospital for evaluation of worsening dementia/confusion noticed to have positive UA and did have MSSA bacteremia also abnormality to the left humeral head on the x-ray.Patient is status post Arthrotomy left shoulder/irrigation and debridement/incision and drainage left septic shoulder completed on 01/11/2024. On today's evaluation that is 01/16/2024,the patient denies any fever or any chills, patient is breathing comfortably on 2 L nasal cannula oxygen, the patient denies chest pain shortness of breath and no significant cough, patient denies abdominal pain, however has been complaining of nausea and vomiting no diarrhea though. Patient white count is 10 and creatinine is 4.15, left shoulder culture positive for MSSA, blood culture 01/06/2024 so far negative Objective - Vital Signs Vital signs: Vital Signs Temp 97.9 F 01/15/24 20:03 Pulse 77 01/16/24 11:43 Resp 18 01/16/24 11:43 BP 137/69 01/16/24 11:43 Pulse Ox 96 01/16/24 11:43 FiO2 Intake & Output 01/15/24 01/16/24 01/16/24 18:59 06:59 18:59 Intake Total 100 20 Output Total 200 450 Balance -100 -430 Weight 60.6 kg Intake: IV 100 20 Invasive Line 4 20 Output: Urine 200 450 Other: Voiding Method Indwelling Catheter Indwelling Catheter External Catheter - Exam GENERAL DESCRIPTION: An elderly female lying in bed in no distress RESPIRATORY SYSTEM: Unlabored breathing , decreased breath sounds at bases HEART: S1 S2 regular rate and rhythm , ABDOMEN: Soft , no tenderness EXTREMITIES: No edema feet - Labs CBC & Chem 7: 01/16/24 10:56 01/16/24 10:56 Labs: Abnormal Lab Results - Last 24 Hours (Table) 01/15/24 01/15/24 01/16/24 Range/Units 16:22 20:07 06:18 RBC (3.80-5.40) m/uL Hgb (11.4-16.0) gm/dL Hct (34.0-46.0) % RDW (11.5-15.5) % Neutrophils # (1.3-7.7) k/uL Chloride (98-107) mmol/L Carbon Dioxide (22-30) mmol/L BUN (7-17) mg/dL Creatinine (0.52-1.04) mg/dL Glucose (74-99) mg/dL POC Glucose (mg/dL) 125 H 131 H 115 H (70-110) mg/dL Calcium (8.4-10.2) mg/dL 01/16/24 01/16/24 01/16/24 Range/Units 10:56 10:56 11:49 RBC 2.96 L (3.80-5.40) m/uL Hgb 8.1 L (11.4-16.0) gm/dL Hct 25.8 L (34.0-46.0) % RDW 16.3 H (11.5-15.5) % Neutrophils # 8.6 H (1.3-7.7) k/uL Chloride 113 H (98-107) mmol/L Carbon Dioxide 18 L (22-30) mmol/L BUN 49 H (7-17) mg/dL Creatinine 4.15 H (0.52-1.04) mg/dL Glucose 106 H (74-99) mg/dL POC Glucose (mg/dL) 125 H (70-110) mg/dL Calcium 7.1 L (8.4-10.2) mg/dL Microbiology - Last 24 Hours (Table) 01/11/24 14:15 Anaerobic Culture - Final Shoulder - Left 01/11/24 14:15 Gram Stain - Final Shoulder - Left Wound Culture - Final Staphylococcus aureus Assessment and Plan (1) MSSA bacteremia Current Visit: Yes Status: Acute Code(s): R78.81 - BACTEREMIA; B95.61 - METHICILLIN SUSCEP STAPH INFCT CAUSING DIS CLASSD [facility] SNOMED Code(s): 638893525 (2) Septic arthritis of shoulder, left Current Visit: Yes Status: Acute Code(s): M00.9 - PYOGENIC ARTHRITIS, UNSPECIFIED SNOMED Code(s): 86799609 Plan: 1-1patient is a 78-year-old female with multiple comorbidities presenting to the hospital with confusion and mental status changes did have a low-grade fever elevated white count and now with evidence of MSSA bacteremia source is likely left shoulder which was large bony defect of the humeral head articular surface which was not seen on October 30, 2023 x-ray as currently no other obvious focus for this bacteremia, MRI of the left shoulder is currently pending 2-blood cultures repeated on 01/06/2024 as well as 01/07/2024 has been negative 3-patient is also growing ESBL E. coli in the urine however the patient denies urinary symptoms question of possible asymptomatic bacteriuria, the patient repeat urine cultures are negative, no need for antibiotics 4-patient MRI suspicious for septic arthritis of the glenohumeral joint on the left side patient is status post arthrotomy left shoulder/irrigation and debridement/incision and drainage left septic shoulder completed on 01/11/2024, cultures currently growing MSSA haily 5patient is afebrile the patient white count normal, patient did get her bacteremia and has received about 12 days of IV cefazolin keeping in mind her kidney function and cefazolin noted to be adjusted to the kidney function and the patient getting to the outpatient setting it will be safe to use Rocephin 2 g daily for the septic arthritis which does not need any adjustment of the kidney function, plan is for total of 6-week course of therapy and close outpatient follow-up Dictation was produced using [employer] dictation software. please excuse any grammatical, word or spelling errors. Time with Patient: Less than 30
--- NOTE | 2024-01-16 15:24 | P.PN ---
Subjective Progress Note Date: 01/16/24 Principal diagnosis: Acute septic arthritis and MSSA bacteremia 8-year-old female patient got transferred to the intensive care unit because of ongoing seizure activity and concerns for status epilepticus. The patient was hospitalized few days back with altered mentation and confusion. She apparently has history of dementia possible evidence status of his dementia and she has some baseline confusion. It was noted that her confusion was progressively getting worse and she also had diminished appetite also. In the emergency department, the patient was hemodynamically stable. Initial CAT scan of the brain was negative for any acute intracranial process and the patient had chronic appearing patchy periventricular white matter ischemic changes and atrophy. Chest x-ray was normal. X-ray of the left shoulder was done and the patient showed a large bony defect in the left humeral head articular space and the shoulder was quite swollen. This was suspected to be related to a traumatic injury. Pelvic x-ray showed also superior inferior pubic rami fracture on the right and subacute incomplete healed fractures and the superior pubic ramus was displaced by around 9 mm. Blood work showed leukocytosis with a white cell count of 19.3 with a hemoglobin of 7.4 and she has chronic baseline anemia. The patient also had a sodium level of 133 with a potassium level 5.4 and a chloride of 97 with a BUN of 63 and a creatinine of 2.9. Calcium was also elevated at 11.8. No significant abnormalities in liver function test. The viral screen was negative. UA was suggestive of an underlying infection and UTI was suspected. The patient also had some troponin leak. As such, the patient was admitted to the hospital for further workup and treatment. She was seen by n ephrology and the patient demonstrated progressive worsening in renal function and the creatinine delfina from 2.9 up to 4.05 and this morning is at 3.96. The white cell count dropped down to 9.3. Hemoglobin has been stable at 8.4 from today. The urine culture was positive for E. coli and this was an ESBL producing microorganism in the blood culture was also positive for Staph aureus/MSSA and this was identified on 2 separate blood cultures. Infectious disease was consulted and the patient was placed on IV cefazolin. Based on the staphylococcal growth in the blood and the joint swelling in the left shoulder, there is a concern for septic arthritis. MRI of the left shoulder was ordered and orthopedic consultation was also requested. The CT scan of the abdomen and pelvis showed no acute intra-abdominal process without any obstructive uropathy or calculus. Subacute fractures of the right inferior and superior rami/pubic rami as well as the right sacrum was noted. This afternoon, the patient was noted to have eye twitching and gaze deviation to the left and seizure-like activity. Subsequently, in the morning, the patient continued to have left gaze deviation with eye twitching and seizure- like tonic-clonic seizure activity as reported by the nursing staff that lasted less than a minute. The patient continued to have recurrent seizures following that lasting up to 5 minutes with the left gaze deviation and generalized clonic activity. The patient had been given a total of 2 mg of IV Ativan during the first episode another 2 mg of Ativan during the second episode bringing her up to a total of 4 mg. She was loaded with Keppra 500 mg IV and dose adjustment was done based on the underlying renal failure. Noted the patient does not have any history of seizure activity or seizure disorder. She is currently afebrile. I was asked to move the patient to the intensive care unit for further monitoring. A repeat CAT scan of the brain was done and it showed atrophy with chronic appearing periventricular white matter ischemic changes and the findings were essentially stable. At this point in time, the patient is on 2 L of oxygen by nasal cannula. The patient remains on IV cefazolin. On today's evaluation of 01/10/2024, the patient is being seen for a follow-up. Her neurostatus is improved slightly compared to yesterday and the patient was able to answer some simple commands. No focal neurological deficits. No facial asymmetry. Pupils are equal reactive to light. Lumbar puncture was done yesterday and the patient has only 1 nucleated cell without any significant elevation in the CSF protein. Cultures are still negative. This is essentially negative LP . There is CSF RBC was 17. CSF glucose was 107. No neck stiffness. No further seizure activity and the patient is currently on Vimpat 100 mg IV every 12 hours. MRI of the brain is to be done today. EEG was completed and showed encephalopathy and there was no indication for an acute or ongoing seizure activity. The plan for now is to proceed with an MRI of the brain and the patient is also going to need an MRI of the shoulder with concerns of septic arthritis. Ultrasound Doppler of the left upper extremity was also done today. This was done essentially to rule out DVT and the results are still pending for now. The patient is afebrile. The patient is hemodynamically stable. Pulse ox is 99% on 2 L of oxygen by nasal cannula. Remains on normal saline at rate of 75 cc an hour. ID is on the case. The patient was growing ESBL producing E. coli in the urine however she did not have any urinary symptoms and the repeat urine cultures have been negative. Based on that, no further antibiotic coverage was recommended in that regard. On today's evaluation of 01/11/2024, the patient is being seen for a follow-up. She is alert and communicating at this point in time. She was transferred out of the intensive care unit. The no further seizure activity and the patient remains on Vimpat. Lumbar puncture was negative. No neck stiffness. No focal neurological deficits. The patient remains on IV cefazolin regarding her staphylococcal septicemia. The patient also had a MRI of the brain that showed no acute abnormalities. MRI of the shoulder was quite abnormal and the patient was Considered to have possibility of septic arthritis. The patient had severe osseous and periarticular and surrounding soft tissue edema along with severe bone loss particularly in the articular surface of the head and underlying joints/bursa effusion as well as located fluid in the lateral deltoid shelf was seen measuring 4.3 cm in size and this made the possibility of septic arthritis more concerning. Based on that, the patient was taken to the operating room and the patient underwent a arthrotomy of the left shoulder along with irrigation debridement and incision and drainage of the left septic shoulder. The patient was found to have significant destruction involving the left humeral head. The bone was debrided. There was thickened synovial tissue that was excised. The joint was then copiously irrigated. A deep drain was placed into the glenohumeral joint. The skin was sutured with appropriate dressing was applied and the patient was brought back to the medical floor. Currently she is on 2 L of oxygen nasal cannula with a pulse ox of 92%. The blood work from today shows a WBC count 9.2, hemoglobin 7.3 and a platelet count of 257. BUN is at 49 with a creatinine of 4.06 and a sodium levels at 138. No other significant events overnight. MRI of the brain was nonspecific and showed atrophy and chronic appearing periventricular white matter ischemic changes. On 01/12/2024, the patient is being seen for a follow-up. Patient is doing well. No specific complaints. She underwent an orthopedic intervention which included arthrotomy of the left shoulder and irrigation debridement and incision and drainage of a left septic joint/arthritis. The cultures are still negative for now. No significant pain. Left upper extremity remains slightly swollen. The patient has no altered mentation. No seizure activity. She is calm and comfortable. She has dropped her hemoglobin down to 6.4 and the patient will be receiving unit of packed RBC. She continues to have chronic kidney disease with a BUN of 46 and a creatinine of 4.05 and her renal function remained stable. Sodium level is 138, bicarb is 19 And anion gap is at 7. The patient remains on IV cefazolin for now. The patient is also on oxygen at 2 L and she was transitioned to room air oxygen. Her pulse ox remains around 97%. No respiratory distress. No focal neurological deficits. On today's evaluation of 01/13/2024, the patient is being seen for a follow-up. The patient has no specific complaints. The left shoulder was debrided and the Gram stain and culture still negative and the patient remains on IV cefazolin. Renal function remained stable with a BUN of 45 with a creatinine of 4.1. No seizure activity. Hemodynamically stable. Remains on oxygen at 2 L/min nasal cannula with a pulse ox of 96%. White cell count of 8.5 with a hemoglobin of 8.1. No other new complaints otherwise for now. Resting comfortably in bed. Nephrology on the case regarding care acute on chronic kidney disease. ID is on the case. Orthopedic surgery is on the case. Neuro is on the case. The patient is currently on Vimpat. She has generalized global weakness yet no focal neurological deficit and no seizure activity. Noted the edema. No encephalopathy. On today's evaluation of 01/14/2024, the patient is resting comfortably in bed. No specific complaints. She was seen by general surgery regarding possibility of hematemesis during the current admission. Note that the patient's hemoglobin dropped down to as low as 6.4 and currently is up to 7.9. The plan is to do EGD at a later stage. The patient remains on room air oxygen with a pulse ox of 91%. No respiratory difficulties. No altered mentation. No seizure activity. She remains on IV cefazolin. Shoulder wound is showing presumptive Staph aureus, awaiting final cultures and sensitivities. Patient is seen today January 15, 2024 in follow-up on the selective care unit. She is currently sitting up in a chair. Awake and alert in no acute distress. No further seizure activity. She is still having ongoing issues with nausea and vomiting. She is maintaining O2 saturations in the 90s on 2 L/min per nasal cannula. Afebrile. Hemodynamically stable. Left shoulder wound is positive for methicillin sensitive Staphylococcus aureus. She remains on cefazolin. Patient was reevaluated today on 01/16/2024, patient continues to have intermittent episodes of nausea and vomiting, and coffee-ground emesis, seen by surgery, underwent EGD. Patient continues to have intermittent episodes of hematemesis, her EGD showed hiatal hernia and esophagitis. Patient is being closely followed by surgery on consultation. Surgery is considering tagged RBC study, also considering small bowel capsule endoscopy to rule out small bowel bleeding. Meantime hemoglobin is being monitored, and the patient is on IV Protonix. Pulmonary zavala, patient does not have a major issue, infection zavala, patient is being followed by infectious disease for her septic arthritis. And for her MSSA bacteremia hemoglobin today is 8.1 basic metabolic profile is normal, renal profile is worsening with creatinine 4.15 today, steadily getting worse since admission patient is now being considered for hemodialysis. Objective - Vital Signs Vital signs: Vital Signs Temp 97.9 F 01/15/24 20:03 Pulse 77 01/16/24 14:57 Resp 18 01/16/24 14:57 BP 137/69 01/16/24 11:43 Pulse Ox 96 01/16/24 11:43 FiO2 Intake & Output 01/15/24 01/16/24 01/16/24 18:59 06:59 18:59 Intake Total 100 20 Output Total 200 450 Balance -100 -430 Weight 60.6 kg Intake: IV 100 20 Invasive Line 4 20 Output: Urine 200 450 Other: Voiding Method Indwelling Catheter Indwelling Catheter External Catheter - Exam General: This is a 78-year-old female, Nonverbal, patient is on 2 L nasal cannula, and intermittently vomiting Derm: Skin warm and dry, normal coloration for ethnicity. Head: Atraumatic, normocephalic and symmetric. Eyes: no lid lag, and anicteric sclera, EOMI Mouth: no lip lesions, mucus membranes moist Cardiovascular: Normal S1-S2, no S3 gallop, 2/6 systolic murmur throughout the precordium. Lungs: Minich breath sound bilaterally no crackles rhonchi or wheezes Abdominal: soft, nontender to palpation, no guarding, no appreciable organomegaly Ext: Left upper extremity in a sling, left arm edema, along with postsurgical changes in the left upper extremity with a drain and the dressing is dry and not soaked at this point in time. Neuro: Alert. Able to move her arms and legs without any limitation. Generalized profound weakness in all 4 extremities. Pupils are equal reactive to light. No facial asymmetry. Positive cough and gag. Responding to simple commands and answering simple questions. - Labs CBC & Chem 7: 01/16/24 10:56 01/16/24 10:56 Labs: Abnormal Lab Results - Last 24 Hours (Table) 01/15/24 01/15/24 01/16/24 Range/Units 16:22 20:07 06:18 RBC (3.80-5.40) m/uL Hgb (11.4-16.0) gm/dL Hct (34.0-46.0) % RDW (11.5-15.5) % Neutrophils # (1.3-7.7) k/uL Chloride (98-107) mmol/L Carbon Dioxide (22-30) mmol/L BUN (7-17) mg/dL Creatinine (0.52-1.04) mg/dL Glucose (74-99) mg/dL POC Glucose (mg/dL) 125 H 131 H 115 H (70-110) mg/dL Calcium (8.4-10.2) mg/dL 01/16/24 01/16/24 01/16/24 Range/Units 10:56 10:56 11:49 RBC 2.96 L (3.80-5.40) m/uL Hgb 8.1 L (11.4-16.0) gm/dL Hct 25.8 L (34.0-46.0) % RDW 16.3 H (11.5-15.5) % Neutrophils # 8.6 H (1.3-7.7) k/uL Chloride 113 H (98-107) mmol/L Carbon Dioxide 18 L (22-30) mmol/L BUN 49 H (7-17) mg/dL Creatinine 4.15 H (0.52-1.04) mg/dL Glucose 106 H (74-99) mg/dL POC Glucose (mg/dL) 125 H (70-110) mg/dL Calcium 7.1 L (8.4-10.2) mg/dL Microbiology - Last 24 Hours (Table) 01/11/24 14:15 Anaerobic Culture - Final Shoulder - Left Assessment and Plan Assessment: Impression: Hematemesis, upper GI bleeding, being addressed by surgery on the case. Septic arthritis of left shoulder with subdeltoid abscess MSSA bacteremia Seizure disorder and new onset seizure Acute kidney injury, patient is heading to possibly renal replacement/hemodialysis Alzheimer's dementia Benign essential hypertension Hypothyroidism Dyslipidemia Iron deficiency anemia Recurrent urinary tract infections History of Parkinson's disease Recommendation: Continue present supportive care measures Fully agree with DNR/DNI CODE STATUS Continue cefazolin Continue seizure meds Continue Protonix Further workup for her upper GI bleeding is being addressed by surgery on the case. Overall prognosis extremely poor and guarded Will continue to follow Time with Patient: Less than 30
--- NOTE | 2024-01-16 15:37 | NM ---
EXAMINATION TYPE: NM GI bleeding DATE OF EXAM: 01/16/2024 CLINICAL INDICATION: Female, 78 years old with history of black emesis, evaluate for GI bleed in smal l bowel; COMPARISON: NONE Following administration of 3 ml PYP 25.9 mCi Tc 99m Sodium Pertechnete. Immediate images post inject ion. FINDINGS: Normal tracer activity is seen in the blood pool of the abdominal aorta, common iliac arteries, femor al arteries, liver, and spleen on all of the interval images. Later images show accumulation of trace r in the urinary bladder, which is consistent with excreted tracer. No abnormal tracer uptake is pres ent outside the blood pool that would be consistent with an active GI bleed. IMPRESSION: Negative examination. No evidence of active gastrointestinal bleeding during the initial 1 hr observa tion period.
[2024-01-16 16:45] LABS: Glucose,Whole Blood 134 mg/dL (70-110)
[2024-01-16 19:19] LABS: Hepatitis B Surface AB- Quant 3.5 mIU/mL; Hepatitis B Surface Antigen Nonreactive
[2024-01-16 20:22] LABS: Glucose,Whole Blood 113 mg/dL (70-110)
[2024-01-17] MEDS: FUROSEMIDE 10 MG/ML 10 ML VIAL IV STA (05:32)
[2024-01-17 06:12] LABS: Glucose,Whole Blood 102 mg/dL (70-110)
--- NOTE | 2024-01-17 06:27 | XR ---
EXAM: XR Chest, 1 View CLINICAL HISTORY: ITS.REASON XR Reason: SOB TECHNIQUE: Frontal view of the chest. COMPARISON: XR Chest dated 01/13/24 FINDINGS: Lungs: Bilateral mid to lower lung opacities similar/mildly increased. Pleural space: Unremarkable. No pneumothorax. Heart: Unremarkable. No cardiomegaly. Mediastinum: Unremarkable. Normal mediastinal contour. Bones/joints: Chronic deformity of the left proximal humerus. Degenerative changes of the right shoulder. No acute fracture. Tubes, lines and devices: New right PICC with the tip in the SVC. IMPRESSION: 1. New right PICC with the tip in the SVC. 2. Bilateral mid to lower lung opacities similar/mildly increased. Likely represent effusions and atelectasis/airspace disease.
[2024-01-17] MEDS: ASCORBIC ACID 500 MG TAB PO SCH (08:40)
[2024-01-17 09:26] LABS: Anisocytosis Slight; Basophils % (A) 0 %; Eosinophils % (A) 0 %; HCT 26.2 % (34.0-46.0); HGB 8.2 gm/dL (11.4-16.0); Hypochromasia Moderate; Lymphocytes # (A) 0.9 k/uL (1.0-4.8); Lymphocytes % (A) 8 %; MCH 27.7 pg (25.0-35.0); MCHC 31.4 g/dL (31.0-37.0); MCV 88.1 fL (80.0-100.0); Mean Platelet Volume 7.6; Monocytes # (A) 0.4 k/uL (0-1.0); Monocytes % (A) 3 %; Neutrophils # (A) 9.8 k/uL (1.3-7.7); Neutrophils % (A) 88 %; Platelet Count 316 k/uL (150-450); RBC 2.98 m/uL (3.80-5.40); RDW 16.6 % (11.5-15.5); WBC 11.1 k/uL (3.8-10.6)
[2024-01-17 09:49] LABS: African American GFR (CKD) 11 (>60 ml/min/1.73 sqM); Anion Gap 13 mmol/L; Blood Urea Nitrogen 54 mg/dL (7-17); Calcium 7.2 mg/dL (8.4-10.2); Carbon Dioxide 14 mmol/L (22-30); Chloride 112 mmol/L (98-107); Glucose 88 mg/dL (74-99); Magnesium 1.6 mg/dL (1.6-2.3); Non-African American GFR(CKD) 9 (>60 ml/min/1.73 sqM); Potassium 3.3 mmol/L (3.5-5.1); Sodium 139 mmol/L (137-145)
[2024-01-17] MEDS: POTASSIUM CHLORIDE ER 20 MEQ TAB.ER PO STA (11:44)
[2024-01-17 11:56] LABS: Glucose,Whole Blood 111 mg/dL (70-110)
--- NOTE | 2024-01-17 12:50 | P.PN ---
Subjective Patient is seen for follow-up for acute kidney injury. Patient is nauseated and has had dark-colored emesis. Poor oral intake 650 ML of urine charted for 24 hours. Given the persistently elevated creatinine at 4.1-4.2 mg/dL and symptoms of poor oral intake with emesis, I will proceed with renal replacement therapy. Discussed with patient and her yesterday. They are agreeable. Objective - Vital Signs Vital signs: Vital Signs Temp 98.1 F 01/17/24 08:00 Pulse 77 01/17/24 12:43 Resp 18 01/17/24 12:43 BP 144/72 01/17/24 08:00 Pulse Ox 97 01/17/24 08:00 FiO2 Intake & Output 01/16/24 01/17/24 01/17/24 18:59 06:59 18:59 Other: Voiding Method External Catheter External Catheter External Catheter # Voids 0 - Exam Patient is awake, comfortable, no acute distress Examination of the heart S1 and S2 Examination of the lungs decreased breath sounds at the bases Abdomen is soft nontender Examination of lower extremities shows 1+ bilateral edema, upper and lower extremities worse in the left upper extremity SALT GRINDER exam shows patient is moving all 4 extremities. - Labs CBC & Chem 7: 01/17/24 08:14 01/17/24 08:14 Labs: Abnormal Lab Results - Last 24 Hours (Table) 01/16/24 01/16/24 01/16/24 Range/Units 10:56 16:43 20:21 WBC (3.8-10.6) k/uL RBC (3.80-5.40) m/uL Hgb (11.4-16.0) gm/dL Hct (34.0-46.0) % RDW (11.5-15.5) % Neutrophils # (1.3-7.7) k/uL Lymphocytes # (1.0-4.8) k/uL Potassium (3.5-5.1) mmol/L Chloride 113 H (98-107) mmol/L Carbon Dioxide 18 L (22-30) mmol/L BUN 49 H (7-17) mg/dL Creatinine 4.15 H (0.52-1.04) mg/dL Glucose 106 H (74-99) mg/dL POC Glucose (mg/dL) 134 H 113 H (70-110) mg/dL Calcium 7.1 L (8.4-10.2) mg/dL 01/17/24 01/17/24 01/17/24 Range/Units 08:14 08:14 11:54 WBC 11.1 H (3.8-10.6) k/uL RBC 2.98 L (3.80-5.40) m/uL Hgb 8.2 L (11.4-16.0) gm/dL Hct 26.2 L (34.0-46.0) % RDW 16.6 H (11.5-15.5) % Neutrophils # 9.8 H (1.3-7.7) k/uL Lymphocytes # 0.9 L (1.0-4.8) k/uL Potassium 3.3 L (3.5-5.1) mmol/L Chloride 112 H (98-107) mmol/L Carbon Dioxide 14 L (22-30) mmol/L BUN 54 H (7-17) mg/dL Creatinine 4.27 H (0.52-1.04) mg/dL Glucose (74-99) mg/dL POC Glucose (mg/dL) 111 H (70-110) mg/dL Calcium 7.2 L (8.4-10.2) mg/dL Microbiology - Last 24 Hours (Table) 01/11/24 14:15 Anaerobic Culture - Final Shoulder - Left Assessment and Plan Assessment: 1. Acute kidney injury, ATN secondary to severe anemia and sepsis. UA shows 2+ protein large blood and WBCs 69. Ultrasound shows no hydronephrosis on the right kidney. Left kidney could not be visualized due to patient position. CT scan shows no evidence of obstructive uropathy. Status post IV fluid. Renal function has not improved and patient is now complaining of nausea and vomiting. Given the borderline urine output and worsening symptoms of possible uremia, I will proceed with renal replacement therapy 2. Acute blood loss anemia, most likely GI bleed. Being transfused packed RBCs. Iron studies show significant iron deficiency however at this time in view of positive blood cultures I will hold the IV iron until 2 to 3 days of being on antibiotics. 3. Hyperkalemia on admission associated with acute kidney injury, currently improved 4. Hypertension with blood pressure currently on the lower side. 5. UTI with urine culture growing E. coli 6. Bacteremia with blood cultures growing MSSA 7. Mild volume overload with significant third spacing Plan: Hemodialysis today if permacath is placed earlier on this afternoon, otherwise we will plan for first treatment tomorrow. Discussed with patient and family Add diuretics
--- NOTE | 2024-01-17 15:20 | P.PN ---
Subjective Progress Note Date: 01/17/24 (delayed charting seen at 1055) Patient is a 78-year-old female with Alzheimer's dementia baseline alert and oriented x 1-2, hypertension, dyslipidemia, hypothyroidism, diabetes mellitus type 2 [id number], iron deficiency anemia, and multiple other comorbid conditions who presented to the emergency department with worsening confusion. On arrival to the ER her vital signs were within normal limits. CT of the head showed no acute intracranial process. Chest x-ray showed no acute p rocess. Left shoulder x-ray showed large bony defect in the humeral head articular area. Pelvic x-ray showed right superior and inferior pubic rami fracture which were subacute and incompletely healed. Initial laboratory analysis was remarkable for white blood cell count of 19.3, hemoglobin 7.4 ( baseline 7.5), sodium 133, potassium 5.4, BUN 62, creatinine 2.93 (baseline 0.9), and calcium 11.8. Troponin was mildly elevated at 0.251. Influenza A/B/COVID-19/RSV testing was negative. Urinalysis was equivocal for possible urinary tract infection. Patient was admitted for altered mentation with infection and type II non-STEMI. Cardiology, nephrology, and orthopedic surgery were consulted. Initially orthopedic surgery recommended conservative measures with sling to the left upper extremity. They also recommended that patient wait and weight-bear as tolerated with walker and assistance due to pubic rami fracture. Patient ultimately was found to have MSSA bacteremia and infectious disease was consulted. She underwent shoulder MRI which demonstrated a loculated fluid collection. Patient subsequently underwent I&D on 01/11/2024. Wound cultures from this again grew Staph aureus. This was determined to be the etiology of her bacteremia. She was transitioned to IV cefazolin. Patient had a PICC line placed. On 01/09/2024 patient developed status epilepticus requiring transfer to the ICU. Patient was treated with IV Ativan and Keppra and status resolved. Neurology was consulted. MRI of the brain showed no acute process and the patient was maintained on Vimpat. She subsequently was downgraded back to our selective care floor. On 01/12 she started having large amounts of coffee- ground emesis. General surgery was consulted and she subsequently underwent EGD on 01/15/2024 which demonstrated LA grade B erosive esophagitis with no stigmata of bleeding. She also underwent tagged red blood cell scan which showed no active GI bleeding. Hemoglobin remained stable. Unfortunately renal function did not improve. Patient was developing worsening acidosis and signs of uremia. Nephrology recommended hemodialysis. Patient seen and examined at bedside with family present. Patient states that she is having some pain in her left shoulder and buttock. She denies any chest pain. She is feeling short of breath. She is feeling very tired and fatigued. Vital signs reviewed General: Nontoxic, no distress, appears at stated age Cardiovascular: S1S2 reg, no murmur Lungs: Coarse breath sounds bilateral , no accessory muscle use Abdominal: Soft, nontender to palpation, no guarding, Ext: No gross muscle atrophy, 3+ edema bilateral lower extremities, 3+ edema left upper extremity, no contractures, dressing over left shoulder Neuro: CN II-XI grossly intact, no focal neuro deficits Psych: Alert, oriented, appropriate affect Assessment/Plan: Nonoliguric acute kidney injury now requiring hemodialysis Hypokalemia Anion gap metabolic acidosis Hyperchloremia -Case discussed with nephrology. Plans will be for hemodialysis today after vascular access is obtained -Lasix 60 mg IV push daily -Sodium bicarb 650 mg p.o. daily -Repeat basic metabolic profile in a.m. Acute GI bleeding secondary to erosive esophagitis Acute on chronic iron deficiency anemia -Status post EGD and tagged red blood cell scan with no definitive source of bleeding -Continue Protonix 40 mg IV push twice daily -Follow CBC -Status post 2 units of packed red blood cells -Continue with ferrous sulfate 325 mg daily, up sorbic acid, darbepoetin 40 mcg subcu q. 7 days Left shoulder septic arthritis with resultant M SSA bacteremia status post I&D -Infectious disease note reviewed from 01/15: Continue IV cefazolin with plan to transition to Rocephin for 6-week course on discharge. -Cefazolin 1 g IV every 24 hours, patient is day #16 of cephalosporin and based antibiotics. - Ortho signed off. recs: Prescription was placed for a lymphedema compression sleeve for the left upper extremity, this was discussed with case management. Due to the amount of swelling in the extremity from the surgery and current condition we are recommending use of this for the next 6 to 8 weeks. - aaron wrap to left upper extremity Status epilepticus, resolved -Continue with Vimpat 100 mg twice daily -Neurology has signed off. Follow-up with neurologist as outpatient in 1 to 2 weeks. Type II NSTEMI, due to acute medical illness HTN HLD -Cardiology sigendd off signed off -Continue aspirin 81 mg daily and atorvastatin 40 mg daily. -Norvasc 5 mg daily History of Alzheimer's dementia History of Parkinson's disease -Continue carbidopa levodopa 25/100 mg tablets 4 times daily. Right-sided superior and inferior pubic rami fractures, chronic - weight bare as tolerated with walker - ortho signed off Type II non-insulin dependent diabetes mellitus -Continue to hold metformin -sliding scale insulin, monitor for hypoglycemia - A1C 6.1 Hypothyroidism -levothyroxine 100 mcg daily. TSH 1.200 Acute metabolic encephalopathy, resolved Imaging: Chest x-ray: Bilateral mid to lower lung opacities similar or mildly increased Data Review: Labs reviewed from today include CBC and basic metabolic profile which are remarkable for white blood cell count 11.1, hemoglobin 8.2, potassium 3.3, chloride 112, carbon dioxide 14, anion gap 13, BUN 54, creatinine 4.27, glucose 111, hepatitis B negative DVT prophylaxis: SCDs Anticipated discharge date: Pending clinical course Anticipated discharge place: Pending clinical course This dictation was prepared using [employer] voice recognition software. Though every attempt is made to correct errors during dictation some may still exist. Objective - Vital Signs Vital signs: Vital Signs Temp 98.1 F 01/17/24 08:00 Pulse 77 01/17/24 12:43 Resp 18 01/17/24 12:43 BP 144/72 01/17/24 08:00 Pulse Ox 97 01/17/24 08:00 FiO2 Intake & Output 01/16/24 01/17/24 01/17/24 18:59 06:59 18:59 Weight 60.6 kg Other: Voiding Method External Catheter External Catheter External Catheter # Voids 0 - Labs CBC & Chem 7: 01/17/24 08:14 01/17/24 08:14 Labs: Abnormal Lab Results - Last 24 Hours (Table) 01/16/24 01/16/24 01/17/24 Range/Units 16:43 20:21 08:14 WBC 11.1 H (3.8-10.6) k/uL RBC 2.98 L (3.80-5.40) m/uL Hgb 8.2 L (11.4-16.0) gm/dL Hct 26.2 L (34.0-46.0) % RDW 16.6 H (11.5-15.5) % Neutrophils # 9.8 H (1.3-7.7) k/uL Lymphocytes # 0.9 L (1.0-4.8) k/uL Potassium (3.5-5.1) mmol/L Chloride (98-107) mmol/L Carbon Dioxide (22-30) mmol/L BUN (7-17) mg/dL Creatinine (0.52-1.04) mg/dL POC Glucose (mg/dL) 134 H 113 H (70-110) mg/dL Calcium (8.4-10.2) mg/dL 01/17/24 01/17/24 Range/Units 08:14 11:54 WBC (3.8-10.6) k/uL RBC (3.80-5.40) m/uL Hgb (11.4-16.0) gm/dL Hct (34.0-46.0) % RDW (11.5-15.5) % Neutrophils # (1.3-7.7) k/uL Lymphocytes # (1.0-4.8) k/uL Potassium 3.3 L (3.5-5.1) mmol/L Chloride 112 H (98-107) mmol/L Carbon Dioxide 14 L (22-30) mmol/L BUN 54 H (7-17) mg/dL Creatinine 4.27 H (0.52-1.04) mg/dL POC Glucose (mg/dL) 111 H (70-110) mg/dL Calcium 7.2 L (8.4-10.2) mg/dL Microbiology - Last 24 Hours (Table) 01/11/24 14:15 Anaerobic Culture - Final Shoulder - Left
--- NOTE | 2024-01-17 15:33 | P.PN ---
Subjective Progress Note Date: 01/17/24 CHIEF COMPLAINT: Coffee-ground emesis HISTORY OF PRESENT ILLNESS: Patient status post EGD results showing diaphragmatic hiatal hernia and erosive esophagitis. Patient continues to have black liquidy emesis. She had another episode this morning. She denies any abdominal pain. Tagged RBC scan was negative for bleeding. Hemoglobin stable at 11.2. Nephrology is planning on hemodialysis possibly today or tomorrow PHYSICAL EXAM: VITAL SIGNS: Reviewed. GENERAL: Well-developed in no acute distress. HEENT: No sclera icterus. Extraocular movements grossly intact. Moist buccal mucosa. Head is atraumatic, normocephalic. ABDOMEN: Soft. Nondistended. Nontender. NEUROLOGIC: Alert and oriented. Cranial nerves II through XII grossly intact. ASSESSMENT: 1. Hematemesis 2. Status post EGD with evidence of hiatal hernia and esophagitis 3. Acute blood loss anemia with GI bleed PLAN: -Continue to monitor -Recommend no red food products -Patient may need small bowel capsule endoscopy for evaluation of bleeding from small bowel. This can be completed outpatient. -Continue to monitor hemoglobin -Continue to monitor for any signs or symptoms of bleeding -Continue full liquids -Continue IV Protonix Physician Surgery Scheduler note has been reviewed by physician. Signing provider agrees with the documented findings, assessment, and plan of care. Please see additional documentation below CHIEF COMPLAINT: GI bleed HISTORY OF PRESENT ILLNESS: The patient is a 78-year-old female with history hematemesis. Upper endoscopy was unremarkable for acute gastric ulcer or bleeding. Patient is having dark emesis. She is on hemodialysis. ROS: No fevers or chills. No new chest pain. No productive sputum PHYSICAL EXAM: VITAL SIGNS: Reviewed CONSTITUTIONAL: Well developed and in no acute distress. EYES: Conjuctivae without sclera icterus. Extraocular movements grossly intact. HEAD, EARS, NOSE, THROAT: Moist buccal mucosa. Head is atraumatic, normocephalic. Hears conversational speech. No nasal drainage. RESPIRATORY: Non-labored respirations and equal bilateral excursions. CARDIOVASCULAR: Palpable 2+ radial pulses. ABDOMEN: No peritonitis. MUSCULOSKELETAL: No gross deformity of the lower extremities noted. No clubbing. No cyanosis. SKIN: Good skin turgor. Well perfused. NEUROLOGIC: Cranial nerves II through XII grossly intact. No focal or lateralizing signs. PSYCH: Alert to person. CLINICAL LABS: Reviewed. Hemoglobin 8.1, anemia increased to 11.2 STUDIES: Tagged RBC scan reviewed demonstrates no bleeding. This is my independent interpretation. ASSESSMENT: 1. Acute blood loss anemia with GI bleed 2. Hematemesis 3. Renal failure, on hemodialysis PLAN: 1. Recommend avoid red food dye as this increases risk for bleeding 2. Monitor hemoglobin 3. Recommend Protonix Objective - Vital Signs Vital signs: Vital Signs Temp 98.1 F 01/17/24 08:00 Pulse 77 01/17/24 12:43 Resp 18 01/17/24 12:43 BP 144/72 01/17/24 08:00 Pulse Ox 97 01/17/24 08:00 FiO2 Intake & Output 01/16/24 01/17/24 01/17/24 18:59 06:59 18:59 Other: Voiding Method External Catheter External Catheter External Catheter # Voids 0 - Labs CBC & Chem 7: 01/21/24 07:25 01/22/24 07:28 Labs: Abnormal Lab Results - Last 24 Hours (Table) 01/16/24 01/16/24 01/16/24 Range/Units 10:56 16:43 20:21 WBC (3.8-10.6) k/uL RBC (3.80-5.40) m/uL Hgb (11.4-16.0) gm/dL Hct (34.0-46.0) % RDW (11.5-15.5) % Neutrophils # (1.3-7.7) k/uL Lymphocytes # (1.0-4.8) k/uL Potassium (3.5-5.1) mmol/L Chloride 113 H (98-107) mmol/L Carbon Dioxide 18 L (22-30) mmol/L BUN 49 H (7-17) mg/dL Creatinine 4.15 H (0.52-1.04) mg/dL Glucose 106 H (74-99) mg/dL POC Glucose (mg/dL) 134 H 113 H (70-110) mg/dL Calcium 7.1 L (8.4-10.2) mg/dL 01/17/24 01/17/24 01/17/24 Range/Units 08:14 08:14 11:54 WBC 11.1 H (3.8-10.6) k/uL RBC 2.98 L (3.80-5.40) m/uL Hgb 8.2 L (11.4-16.0) gm/dL Hct 26.2 L (34.0-46.0) % RDW 16.6 H (11.5-15.5) % Neutrophils # 9.8 H (1.3-7.7) k/uL Lymphocytes # 0.9 L (1.0-4.8) k/uL Potassium 3.3 L (3.5-5.1) mmol/L Chloride 112 H (98-107) mmol/L Carbon Dioxide 14 L (22-30) mmol/L BUN 54 H (7-17) mg/dL Creatinine 4.27 H (0.52-1.04) mg/dL Glucose (74-99) mg/dL POC Glucose (mg/dL) 111 H (70-110) mg/dL Calcium 7.2 L (8.4-10.2) mg/dL Microbiology - Last 24 Hours (Table) 01/11/24 14:15 Anaerobic Culture - Final Shoulder - Left
--- NOTE | 2024-01-17 15:40 | P.PN ---
Subjective Progress Note Date: 01/17/24 Principal diagnosis: Acute septic arthritis and MSSA bacteremia 8-year-old female patient got transferred to the intensive care unit because of ongoing seizure activity and concerns for status epilepticus. The patient was hospitalized few days back with altered mentation and confusion. She apparently has history of dementia possible evidence status of his dementia and she has some baseline confusion. It was noted that her confusion was progressively getting worse and she also had diminished appetite also. In the emergency department, the patient was hemodynamically stable. Initial CAT scan of the brain was negative for any acute intracranial process and the patient had chronic appearing patchy periventricular white matter ischemic changes and atrophy. Chest x-ray was normal. X-ray of the left shoulder was done and the patient showed a large bony defect in the left humeral head articular space and the shoulder was quite swollen. This was suspected to be related to a traumatic injury. Pelvic x-ray showed also superior inferior pubic rami fracture on the right and subacute incomplete healed fractures and the superior pubic ramus was displaced by around 9 mm. Blood work showed leukocytosis with a white cell count of 19.3 with a hemoglobin of 7.4 and she has chronic baseline anemia. The patient also had a sodium level of 133 with a potassium level 5.4 and a chloride of 97 with a BUN of 63 and a creatinine of 2.9. Calcium was also elevated at 11.8. No significant abnormalities in liver function test. The viral screen was negative. UA was suggestive of an underlying infection and UTI was suspected. The patient also had some troponin leak. As such, the patient was admitted to the hospital for further workup and treatment. She was seen by n ephrology and the patient demonstrated progressive worsening in renal function and the creatinine delfina from 2.9 up to 4.05 and this morning is at 3.96. The white cell count dropped down to 9.3. Hemoglobin has been stable at 8.4 from today. The urine culture was positive for E. coli and this was an ESBL producing microorganism in the blood culture was also positive for Staph aureus/MSSA and this was identified on 2 separate blood cultures. Infectious disease was consulted and the patient was placed on IV cefazolin. Based on the staphylococcal growth in the blood and the joint swelling in the left shoulder, there is a concern for septic arthritis. MRI of the left shoulder was ordered and orthopedic consultation was also requested. The CT scan of the abdomen and pelvis showed no acute intra-abdominal process without any obstructive uropathy or calculus. Subacute fractures of the right inferior and superior rami/pubic rami as well as the right sacrum was noted. This afternoon, the patient was noted to have eye twitching and gaze deviation to the left and seizure-like activity. Subsequently, in the morning, the patient continued to have left gaze deviation with eye twitching and seizure- like tonic-clonic seizure activity as reported by the nursing staff that lasted less than a minute. The patient continued to have recurrent seizures following that lasting up to 5 minutes with the left gaze deviation and generalized clonic activity. The patient had been given a total of 2 mg of IV Ativan during the first episode another 2 mg of Ativan during the second episode bringing her up to a total of 4 mg. She was loaded with Keppra 500 mg IV and dose adjustment was done based on the underlying renal failure. Noted the patient does not have any history of seizure activity or seizure disorder. She is currently afebrile. I was asked to move the patient to the intensive care unit for further monitoring. A repeat CAT scan of the brain was done and it showed atrophy with chronic appearing periventricular white matter ischemic changes and the findings were essentially stable. At this point in time, the patient is on 2 L of oxygen by nasal cannula. The patient remains on IV cefazolin. On today's evaluation of 01/10/2024, the patient is being seen for a follow-up. Her neurostatus is improved slightly compared to yesterday and the patient was able to answer some simple commands. No focal neurological deficits. No facial asymmetry. Pupils are equal reactive to light. Lumbar puncture was done yesterday and the patient has only 1 nucleated cell without any significant elevation in the CSF protein. Cultures are still negative. This is essentially negative LP . There is CSF RBC was 17. CSF glucose was 107. No neck stiffness. No further seizure activity and the patient is currently on Vimpat 100 mg IV every 12 hours. MRI of the brain is to be done today. EEG was completed and showed encephalopathy and there was no indication for an acute or ongoing seizure activity. The plan for now is to proceed with an MRI of the brain and the patient is also going to need an MRI of the shoulder with concerns of septic arthritis. Ultrasound Doppler of the left upper extremity was also done today. This was done essentially to rule out DVT and the results are still pending for now. The patient is afebrile. The patient is hemodynamically stable. Pulse ox is 99% on 2 L of oxygen by nasal cannula. Remains on normal saline at rate of 75 cc an hour. ID is on the case. The patient was growing ESBL producing E. coli in the urine however she did not have any urinary symptoms and the repeat urine cultures have been negative. Based on that, no further antibiotic coverage was recommended in that regard. On today's evaluation of 01/11/2024, the patient is being seen for a follow-up. She is alert and communicating at this point in time. She was transferred out of the intensive care unit. The no further seizure activity and the patient remains on Vimpat. Lumbar puncture was negative. No neck stiffness. No focal neurological deficits. The patient remains on IV cefazolin regarding her staphylococcal septicemia. The patient also had a MRI of the brain that showed no acute abnormalities. MRI of the shoulder was quite abnormal and the patient was Considered to have possibility of septic arthritis. The patient had severe osseous and periarticular and surrounding soft tissue edema along with severe bone loss particularly in the articular surface of the head and underlying joints/bursa effusion as well as located fluid in the lateral deltoid shelf was seen measuring 4.3 cm in size and this made the possibility of septic arthritis more concerning. Based on that, the patient was taken to the operating room and the patient underwent a arthrotomy of the left shoulder along with irrigation debridement and incision and drainage of the left septic shoulder. The patient was found to have significant destruction involving the left humeral head. The bone was debrided. There was thickened synovial tissue that was excised. The joint was then copiously irrigated. A deep drain was placed into the glenohumeral joint. The skin was sutured with appropriate dressing was applied and the patient was brought back to the medical floor. Currently she is on 2 L of oxygen nasal cannula with a pulse ox of 92%. The blood work from today shows a WBC count 9.2, hemoglobin 7.3 and a platelet count of 257. BUN is at 49 with a creatinine of 4.06 and a sodium levels at 138. No other significant events overnight. MRI of the brain was nonspecific and showed atrophy and chronic appearing periventricular white matter ischemic changes. On 01/12/2024, the patient is being seen for a follow-up. Patient is doing well. No specific complaints. She underwent an orthopedic intervention which included arthrotomy of the left shoulder and irrigation debridement and incision and drainage of a left septic joint/arthritis. The cultures are still negative for now. No significant pain. Left upper extremity remains slightly swollen. The patient has no altered mentation. No seizure activity. She is calm and comfortable. She has dropped her hemoglobin down to 6.4 and the patient will be receiving unit of packed RBC. She continues to have chronic kidney disease with a BUN of 46 and a creatinine of 4.05 and her renal function remained stable. Sodium level is 138, bicarb is 19 And anion gap is at 7. The patient remains on IV cefazolin for now. The patient is also on oxygen at 2 L and she was transitioned to room air oxygen. Her pulse ox remains around 97%. No respiratory distress. No focal neurological deficits. On today's evaluation of 01/13/2024, the patient is being seen for a follow-up. The patient has no specific complaints. The left shoulder was debrided and the Gram stain and culture still negative and the patient remains on IV cefazolin. Renal function remained stable with a BUN of 45 with a creatinine of 4.1. No seizure activity. Hemodynamically stable. Remains on oxygen at 2 L/min nasal cannula with a pulse ox of 96%. White cell count of 8.5 with a hemoglobin of 8.1. No other new complaints otherwise for now. Resting comfortably in bed. Nephrology on the case regarding care acute on chronic kidney disease. ID is on the case. Orthopedic surgery is on the case. Neuro is on the case. The patient is currently on Vimpat. She has generalized global weakness yet no focal neurological deficit and no seizure activity. Noted the edema. No encephalopathy. On today's evaluation of 01/14/2024, the patient is resting comfortably in bed. No specific complaints. She was seen by general surgery regarding possibility of hematemesis during the current admission. Note that the patient's hemoglobin dropped down to as low as 6.4 and currently is up to 7.9. The plan is to do EGD at a later stage. The patient remains on room air oxygen with a pulse ox of 91%. No respiratory difficulties. No altered mentation. No seizure activity. She remains on IV cefazolin. Shoulder wound is showing presumptive Staph aureus, awaiting final cultures and sensitivities. Patient is seen today January 15, 2024 in follow-up on the selective care unit. She is currently sitting up in a chair. Awake and alert in no acute distress. No further seizure activity. She is still having ongoing issues with nausea and vomiting. She is maintaining O2 saturations in the 90s on 2 L/min per nasal cannula. Afebrile. Hemodynamically stable. Left shoulder wound is positive for methicillin sensitive Staphylococcus aureus. She remains on cefazolin. Patient was reevaluated today on 01/16/2024, patient continues to have intermittent episodes of nausea and vomiting, and coffee-ground emesis, seen by surgery, underwent EGD. Patient continues to have intermittent episodes of hematemesis, her EGD showed hiatal hernia and esophagitis. Patient is being closely followed by surgery on consultation. Surgery is considering tagged RBC study, also considering small bowel capsule endoscopy to rule out small bowel bleeding. Meantime hemoglobin is being monitored, and the patient is on IV Protonix. Pulmonary zavala, patient does not have a major issue, infection zavala, patient is being followed by infectious disease for her septic arthritis. And for her MSSA bacteremia hemoglobin today is 8.1 basic metabolic profile is normal, renal profile is worsening with creatinine 4.15 today, steadily getting worse since admission patient is now being considered for hemodialysis. Reevaluate today on 01/17/2024, patient continues to have recurrent episodes of hematemesis and coffee-ground emesis. EGD showed evidence of hiatal hernia and esophagitis. This is being addressed by surgery on the case. Patient is also being considered for hemodialysis as per nephrology, continues to have worsening renal profile. I did talk to her [id number] and she will in turn discussed her condition with her , it seems like the patient has multiple comorbidities, and overall prognosis is definitely guarded, patient is mostly bedbound, and may not be inappropriate to consider comfort care measures on this patient Objective - Vital Signs Vital signs: Vital Signs Temp 98.1 F 01/17/24 08:00 Pulse 77 01/17/24 12:43 Resp 18 01/17/24 12:43 BP 144/72 01/17/24 08:00 Pulse Ox 97 01/17/24 08:00 FiO2 Intake & Output 01/16/24 01/17/24 01/17/24 18:59 06:59 18:59 Weight 60.6 kg Other: Voiding Method External Catheter External Catheter External Catheter # Voids 0 - Exam General: This is a 78-year-old female, Nonverbal, patient is on 2 L nasal cannula, and intermittently vomiting/having coffee-ground emesis Derm: Skin warm and dry, normal coloration for ethnicity. Head: Atraumatic, normocephalic and symmetric. Eyes: no lid lag, and anicteric sclera, EOMI Mouth: no lip lesions, mucus membranes moist Cardiovascular: Normal S1-S2, no S3 gallop, 2/6 systolic murmur throughout the precordium. Lungs: Crackles at the bases no rhonchi no wheezes Abdominal: soft, nontender to palpation, no guarding, no appreciable organomegaly Ext: Left upper extremity in a sling, left arm edema, along with postsurgical changes in the left upper extremity with a drain and the dressing is dry and not soaked at this point in time. Neuro: Alert. Able to move her arms and legs without any limitation. Generalized profound weakness in all 4 extremities. Pupils are equal reactive to light. No facial asymmetry. Positive cough and gag. Responding to simple commands and answering simple questions. - Labs CBC & Chem 7: 01/17/24 08:14 01/17/24 08:14 Labs: Abnormal Lab Results - Last 24 Hours (Table) 01/16/24 01/16/24 01/17/24 Range/Units 16:43 20:21 08:14 WBC 11.1 H (3.8-10.6) k/uL RBC 2.98 L (3.80-5.40) m/uL Hgb 8.2 L (11.4-16.0) gm/dL Hct 26.2 L (34.0-46.0) % RDW 16.6 H (11.5-15.5) % Neutrophils # 9.8 H (1.3-7.7) k/uL Lymphocytes # 0.9 L (1.0-4.8) k/uL Potassium (3.5-5.1) mmol/L Chloride (98-107) mmol/L Carbon Dioxide (22-30) mmol/L BUN (7-17) mg/dL Creatinine (0.52-1.04) mg/dL POC Glucose (mg/dL) 134 H 113 H (70-110) mg/dL Calcium (8.4-10.2) mg/dL 01/17/24 01/17/24 Range/Units 08:14 11:54 WBC (3.8-10.6) k/uL RBC (3.80-5.40) m/uL Hgb (11.4-16.0) gm/dL Hct (34.0-46.0) % RDW (11.5-15.5) % Neutrophils # (1.3-7.7) k/uL Lymphocytes # (1.0-4.8) k/uL Potassium 3.3 L (3.5-5.1) mmol/L Chloride 112 H (98-107) mmol/L Carbon Dioxide 14 L (22-30) mmol/L BUN 54 H (7-17) mg/dL Creatinine 4.27 H (0.52-1.04) mg/dL POC Glucose (mg/dL) 111 H (70-110) mg/dL Calcium 7.2 L (8.4-10.2) mg/dL Microbiology - Last 24 Hours (Table) 01/11/24 14:15 Anaerobic Culture - Final Shoulder - Left Assessment and Plan Assessment: Impression: Hematemesis, upper GI bleeding, being addressed by surgery on the case. Septic arthritis of left shoulder with subdeltoid abscess MSSA bacteremia Seizure disorder and new onset seizure Acute kidney injury, patient is heading to possibly renal replacement/hemodialysis Alzheimer's dementia Benign essential hypertension Hypothyroidism Dyslipidemia Iron deficiency anemia Recurrent urinary tract infections History of Parkinson's disease Recommendation: Continue present supportive care measures Continue cefazolin Continue seizure meds Continue Protonix Patient had negative diagnostic studies including EGD and including tagged RBC study Patient is being considered for hemodialysis Discussed her condition with [id number] at bedside, and willing to discuss this with her about possibly considering comfort care measures. Overall prognosis extremely poor and guarded Will continue to follow Time with Patient: Less than 30
[2024-01-17 16:44] LABS: Glucose,Whole Blood 102 mg/dL (70-110)
[2024-01-17] MEDS: LIDOCAINE 1% INJ 10MG/ML (20 ML MDV) SQ ONE (18:45)
[2024-01-17] MEDS: IOPAMIDOL-370 100ML BTL INTRATHECA ONE (19:03)
[2024-01-17] MEDS: SODIUM CHLORIDE 0.9% 1,000 ML IV ONE (19:04)
[2024-01-17 20:08] LABS: Glucose,Whole Blood 97 mg/dL (70-110)
--- NOTE | 2024-01-17 20:25 | OP ---
OPERATIVE REPORT DATE OF SERVICE : PREOPERATIVE DIAGNOSES: Acute chronic renal failure, hyperkalemia. POSTOPERATIVE DIAGNOSES: Acute chronic renal failure, hyperkalemia. PROCEDURE PERFORMED: Ultrasound-guided 30-cm dialysis catheter placed, right femoral approach. DESCRIPTION OF PROCEDURE: The patient was brought to the lab support tech. The patient is very short of breath, cannot lay flat. We decided to place a temporary catheter, right femoral approach. Right groin was prepped and drapes applied in a sterile manner. 1% lidocaine infiltrated. Ultrasound-guided micropuncture introduced in right femoral vein. Micropuncture guidewire was passed and 4-Mongolian dilator advanced on top of the guidewire. Then we passed a regular guidewire. Dilator was advanced and we placed 30 cm dialysis catheter on the top of the guidewire. guidewire was removed, flushed with heparin saline and hep-locked, secured with 3-0 nylon. The patient tolerated the procedure well. MMODL / IJN: [id number] /
--- NOTE | 2024-01-18 04:50 | CONS ---
CONSULTATION HISTORY OF PRESENT ILLNESS: This patient has history of acute kidney injury. I was consulted for placement of dialysis catheter. The patient has history of hypertension, hyperkalemia, bacteremia. The patient is very short of breath. PHYSICAL EXAMINATION: GENERAL: The patient was seen. NECK: Supple. CHEST: Crackles bilateral. ABDOMEN: Soft, nontender. EXTREMITIES: Femorals are 1+ bilateral. PLAN: Placement of the dialysis catheter. Risks and complications discussed. MMODL / IJN: [id number] /
[2024-01-18 06:07] LABS: Glucose,Whole Blood 111 mg/dL (70-110)
[2024-01-18 11:59] LABS: Glucose,Whole Blood 96 mg/dL (70-110)
[2024-01-18] MEDS: FUROSEMIDE 10 MG/ML 10 ML VIAL IV SCH (12:29)
--- NOTE | 2024-01-18 12:35 | P.PN ---
Subjective Patient is seen for follow-up for acute kidney injury. Patient is currently seen on hemodialysis. She is tolerating her treatment well. Complain of nausea prior to hemodialysis treatment. Blood pressure is not low. Objective - Vital Signs Vital signs: Vital Signs Temp 97.7 F 01/18/24 11:20 Pulse 77 01/18/24 11:20 Resp 20 01/18/24 11:20 BP 119/57 01/18/24 11:20 Pulse Ox 99 01/18/24 11:20 FiO2 Intake & Output 01/17/24 01/18/24 01/18/24 18:59 06:59 18:59 Intake Total 50 0 Output Total 775 Balance -725 0 Weight 60.6 kg 49 kg Intake: IV 50 Oral 0 Output: Urine 775 Other: Voiding Method External Catheter Indwelling Catheter Indwelling Catheter # Voids 0 # Bowel Movements 0 - Exam Patient is awake, comfortable, no acute distress Examination of the heart S1 and S2 Examination of the lungs decreased breath sounds at the bases Abdomen is soft nontender Examination of lower extremities shows 1+ bilateral edema, upper and lower extremities worse in the left upper extremity 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 - Labs CBC & Chem 7: 01/17/24 08:14 01/17/24 08:14 Labs: Abnormal Lab Results - Last 24 Hours (Table) 01/18/24 Range/Units 06:05 POC Glucose (mg/dL) 111 H (70-110) mg/dL Assessment and Plan Assessment: 1. Acute kidney injury, ATN secondary to severe anemia and sepsis. UA shows 2+ protein large blood and WBCs 69. Ultrasound shows no hydronephrosis on the right kidney. Left kidney could not be visualized due to patient position. CT scan shows no evidence of obstructive uropathy. Started hemodialysis on 01/18/2024 due to uremic symptoms and low urine output. 2. Acute blood loss anemia, most likely GI bleed. Being transfused packed RBCs. Iron studies show significant iron deficiency however at this time in view of positive blood cultures I will hold the IV iron until 2 to 3 days of being on antibiotics. 3. Hyperkalemia on admission associated with acute kidney injury, currently improved 4. Hypertension with blood pressure currently on the lower side. 5. UTI with urine culture growing E. coli 6. Bacteremia with blood cultures growing MSSA 7. Mild volume overload with significant third spacing Plan: Hemodialysis today and repeat in a.m. Decrease Lasix Repeat labs in a.m.
--- NOTE | 2024-01-18 12:54 | IR ---
EXAMINATION TYPE: IR cvc insert non tunneled DATE OF EXAM: 01/18/2024 FLUOROSCOPY dialysis, 0.3mins, 0.3317 Gycm2 DAP, right groin 12.5fr 30cm dialysis. 54 images submitted.
[2024-01-18 13:54] LABS: Anisocytosis Slight; HCT 25.5 % (34.0-46.0); HGB 8.3 gm/dL (11.4-16.0); MCH 27.9 pg (25.0-35.0); MCHC 32.5 g/dL (31.0-37.0); MCV 85.6 fL (80.0-100.0); Mean Platelet Volume 7.2; Platelet Count 304 k/uL (150-450); RBC 2.97 m/uL (3.80-5.40); WBC 15.2 k/uL (3.8-10.6)
--- NOTE | 2024-01-18 14:02 | P.PN ---
Subjective Progress Note Date: 01/17/24 Principal diagnosis: Reason for follow-up is MSSA bacteremia Patient is a 78-year-old female past medical history pertinent for diabetes mellitus hypertension hyperlipidemia dementia and depression brought into the hospital for evaluation of worsening dementia/confusion noticed to have positive UA and did have MSSA bacteremia also abnormality to the left humeral head on the x-ray.Patient is status post Arthrotomy left shoulder/irrigation and debridement/incision and drainage left septic shoulder completed on 01/11/2024. On today's evaluation that is 01/17/2024,the patient remains to be afebrile, patient is on 2 L nasal cannula supplemental oxygen and denies any shortness of breath no chest pain or cough.Patient has been complaining of feeling nauseated with episode of coffee-ground emesis this morning no abdominal pain and no diarrhea has been reported Patient did have white count of 11.1, creatinine is 4.27 Objective - Vital Signs Vital signs: Vital Signs Temp 98.1 F 01/17/24 08:00 Pulse 77 01/17/24 08:00 Resp 18 01/17/24 08:00 BP 144/72 01/17/24 08:00 Pulse Ox 97 01/17/24 08:00 FiO2 Intake & Output 01/16/24 01/17/24 01/17/24 18:59 06:59 18:59 Other: Voiding Method External Catheter External Catheter External Catheter # Voids 0 - Exam GENERAL DESCRIPTION: An elderly female lying in bed in no distress RESPIRATORY SYSTEM: Unlabored breathing , decreased breath sounds at bases HEART: S1 S2 regular rate and rhythm , ABDOMEN: Soft , no tenderness EXTREMITIES: No edema feet - Labs CBC & Chem 7: 01/18/24 13:44 01/17/24 08:14 Labs: Abnormal Lab Results - Last 24 Hours (Table) 01/16/24 01/16/24 01/16/24 Range/Units 10:56 16:43 20:21 WBC (3.8-10.6) k/uL RBC (3.80-5.40) m/uL Hgb (11.4-16.0) gm/dL Hct (34.0-46.0) % RDW (11.5-15.5) % Neutrophils # (1.3-7.7) k/uL Lymphocytes # (1.0-4.8) k/uL Potassium (3.5-5.1) mmol/L Chloride 113 H (98-107) mmol/L Carbon Dioxide 18 L (22-30) mmol/L BUN 49 H (7-17) mg/dL Creatinine 4.15 H (0.52-1.04) mg/dL Glucose 106 H (74-99) mg/dL POC Glucose (mg/dL) 134 H 113 H (70-110) mg/dL Calcium 7.1 L (8.4-10.2) mg/dL 01/17/24 01/17/24 01/17/24 Range/Units 08:14 08:14 11:54 WBC 11.1 H (3.8-10.6) k/uL RBC 2.98 L (3.80-5.40) m/uL Hgb 8.2 L (11.4-16.0) gm/dL Hct 26.2 L (34.0-46.0) % RDW 16.6 H (11.5-15.5) % Neutrophils # 9.8 H (1.3-7.7) k/uL Lymphocytes # 0.9 L (1.0-4.8) k/uL Potassium 3.3 L (3.5-5.1) mmol/L Chloride 112 H (98-107) mmol/L Carbon Dioxide 14 L (22-30) mmol/L BUN 54 H (7-17) mg/dL Creatinine 4.27 H (0.52-1.04) mg/dL Glucose (74-99) mg/dL POC Glucose (mg/dL) 111 H (70-110) mg/dL Calcium 7.2 L (8.4-10.2) mg/dL Microbiology - Last 24 Hours (Table) 01/11/24 14:15 Anaerobic Culture - Final Shoulder - Left Assessment and Plan (1) MSSA bacteremia Current Visit: Yes Status: Acute Code(s): R78.81 - BACTEREMIA; B95.61 - METHICILLIN SUSCEP STAPH INFCT CAUSING DIS CLASSD [id number] SNOMED Code(s): 918749830 (2) Septic arthritis of shoulder, left Current Visit: Yes Status: Acute Code(s): M00.9 - PYOGENIC ARTHRITIS, UNSPECIFIED SNOMED Code(s): 83869100 Plan: 1-patient with MSSA bacteremia suspected left shoulder septic arthritis which was confirmed on MRI and patient is status post arthrotomy left shoulder/irrigation and debridement/incision and drainage left septic shoulder completed on 01/11/2024, cultures currently growing MSSA 2patient is currently afebrile repeat blood culture has been negative seem to have issues with the vomiting and hematemesis also worsening of the kidney function and nephrology consulting dialysis, family at the bedside questions were answered Dictation was produced using [employer] dictation software. please excuse any grammatical, word or spelling errors. Time with Patient: Less than 30
--- NOTE | 2024-01-18 14:03 | P.PN ---
Subjective Progress Note Date: 01/18/24 Principal diagnosis: Reason for follow-up is MSSA bacteremia Patient is a 78-year-old female past medical history pertinent for diabetes mellitus hypertension hyperlipidemia dementia and depression brought into the hospital for evaluation of worsening dementia/confusion noticed to have positive UA and did have MSSA bacteremia also abnormality to the left humeral head on the x-ray.Patient is status post Arthrotomy left shoulder/irrigation and debridement/incision and drainage left septic shoulder completed on 01/11/2024. On today's evaluation that is 01/18/2024, the patient continues to be afebrile, the patient is on 2 L nasal cannula oxygen and breathing comfortably, the Pt denies having any chest pain or cough, the patient denies having any abdominal pain still complaining of some nausea but no vomiting patient will be started on dialysis Patient white count is 15.2 today Objective - Vital Signs Vital signs: Vital Signs Temp 97.7 F 01/18/24 11:20 Pulse 77 01/18/24 11:20 Resp 20 01/18/24 11:20 BP 119/57 01/18/24 11:20 Pulse Ox 99 01/18/24 11:20 FiO2 Intake & Output 01/17/24 01/18/24 01/18/24 18:59 06:59 18:59 Intake Total 50 0 Output Total 775 Balance -725 0 Weight 60.6 kg 49 kg Intake: IV 50 Oral 0 Output: Urine 775 Other: Voiding Method External Catheter Indwelling Catheter Indwelling Catheter # Voids 0 # Bowel Movements 0 - Exam GENERAL DESCRIPTION: An elderly female lying in bed in no distress RESPIRATORY SYSTEM: Unlabored breathing , decreased breath sounds at bases HEART: S1 S2 regular rate and rhythm , ABDOMEN: Soft , no tenderness EXTREMITIES: No edema feet - Labs CBC & Chem 7: 01/18/24 13:44 01/17/24 08:14 Labs: Abnormal Lab Results - Last 24 Hours (Table) 01/18/24 01/18/24 Range/Units 06:05 13:44 WBC 15.2 H (3.8-10.6) k/uL RBC 2.97 L (3.80-5.40) m/uL Hgb 8.3 L (11.4-16.0) gm/dL Hct 25.5 L (34.0-46.0) % RDW 17.0 H (11.5-15.5) % POC Glucose (mg/dL) 111 H (70-110) mg/dL Assessment and Plan (1) MSSA bacteremia Current Visit: Yes Status: Acute Code(s): R78.81 - BACTEREMIA; B95.61 - METHICILLIN SUSCEP STAPH INFCT CAUSING DIS CLASSD [id number] SNOMED Code(s): 854146262 (2) Septic arthritis of shoulder, left Current Visit: Yes Status: Acute Code(s): M00.9 - PYOGENIC ARTHRITIS, UNSPECIFIED SNOMED Code(s): 98423506 Plan: 1-patient with MSSA bacteremia suspected left shoulder septic arthritis which was confirmed on MRI and patient is status post arthrotomy left shoulder/irrigation and debridement/incision and drainage left septic shoulder completed on 01/11/2024, cultures currently growing MSSA 2patient has been started on dialysis because of her worsening kidney function also noticed to have slight worsening of the white count will monitor closely for now continue with the cefazolin and will recheck WBC and inflammatory markers with a.m. lab Dictation was produced using [employer] dictation software. please excuse any grammatical, word or spelling errors. Time with Patient: Less than 30
[2024-01-18 14:05] LABS: African American GFR (CKD) 20 (>60 ml/min/1.73 sqM); Anion Gap 7 mmol/L; Blood Urea Nitrogen 30 mg/dL (7-17); Calcium 7.2 mg/dL (8.4-10.2); Carbon Dioxide 22 mmol/L (22-30); Chloride 106 mmol/L (98-107); Glucose 107 mg/dL (74-99); Non-African American GFR(CKD) 18 (>60 ml/min/1.73 sqM); Potassium 3.3 mmol/L (3.5-5.1); Sodium 135 mmol/L (137-145)
--- NOTE | 2024-01-18 14:37 | P.PN ---
Subjective Progress Note Date: 01/18/24 CHIEF COMPLAINT: Coffee-ground emesis HISTORY OF PRESENT ILLNESS: Patient status post EGD results showing diaphragmatic hiatal hernia and erosive esophagitis. Patient has had no further vomiting today. She was started on hemodialysis. Patient thinks that the black emesis might be related to her medications. She does take an iron pill. Hemoglobin stable at 8.3. Patient denies any nosebleeds or any bleeding in the oral cavity. PHYSICAL EXAM: VITAL SIGNS: Reviewed. GENERAL: Well-developed in no acute distress. HEENT: No sclera icterus. Extraocular movements grossly intact. Moist buccal mucosa. Head is atraumatic, normocephalic. ABDOMEN: Soft. Nondistended. Nontender. NEUROLOGIC: Alert and oriented. Cranial nerves II through XII grossly intact. ASSESSMENT: 1. Hematemesis 2. Status post EGD with evidence of hiatal hernia and esophagitis 3. Acute blood loss anemia with GI bleed PLAN: -Continue to monitor -Recommend no red food products -Continue to monitor hemoglobin -Continue to monitor for any signs or symptoms of bleeding -Advance diet to renal diet -Continue IV Protonix Physician Emergency Room Clerk note has been reviewed by physician. Signing provider agrees with the documented findings, assessment, and plan of care. Please see additional documentation below CHIEF COMPLAINT: GI bleed HISTORY OF PRESENT ILLNESS: The patient is a 78-year-old female with history hematemesis. All studies including tagged RBC scan upper endoscopy demonstrates no source of bleeding. Incidentally, patient reports emesis after taking her iron pill. No reports of abdominal pain. ROS: No fevers or chills. No new chest pain. No productive sputum PHYSICAL EXAM: VITAL SIGNS: Reviewed CONSTITUTIONAL: Well developed and in no acute distress. EYES: Conjuctivae without sclera icterus. Extraocular movements grossly intact. HEAD, EARS, NOSE, THROAT: Moist buccal mucosa. Head is atraumatic, normocephalic. Hears conversational speech. No nasal drainage. RESPIRATORY: Non-labored respirations and equal bilateral excursions. CARDIOVASCULAR: Palpable 2+ radial pulses. ABDOMEN: No peritonitis. MUSCULOSKELETAL: No gross deformity of the lower extremities noted. No clubb ing. No cyanosis. SKIN: Good skin turgor. Well perfused. NEUROLOGIC: Cranial nerves II through XII grossly intact. No focal or lateralizing signs. PSYCH: Alert to person. CLINICAL LABS: Reviewed. Hemoglobin 9.1. ASSESSMENT: 1. Acute blood loss anemia with GI bleed 2. Hematemesis 3. Renal failure, on hemodialysis PLAN: 1. Discontinue iron pills or red foods 2. Renal diet described 3. Monitor hemoglobin Objective - Vital Signs Vital signs: Vital Signs Temp 97.7 F 01/18/24 14:08 Pulse 77 01/18/24 14:08 Resp 18 01/18/24 14:08 BP 132/63 01/18/24 14:08 Pulse Ox 99 01/18/24 11:20 FiO2 Intake & Output 01/17/24 01/18/24 01/18/24 18:59 06:59 18:59 Intake Total 50 400 Output Total 775 1100 Balance -725 -700 Weight 60.6 kg 49 kg Intake: IV 50 Oral 0 Hemodialysis 400 Output: Urine 775 Hemodialysis 1100 Other: Voiding Method External Catheter Indwelling Catheter Indwelling Catheter # Voids 0 # Bowel Movements 0 - Labs CBC & Chem 7: 01/21/24 07:25 01/22/24 07:28 Labs: Abnormal Lab Results - Last 24 Hours (Table) 01/18/24 01/18/24 01/18/24 Range/Units 06:05 13:44 13:44 WBC 15.2 H (3.8-10.6) k/uL RBC 2.97 L (3.80-5.40) m/uL Hgb 8.3 L (11.4-16.0) gm/dL Hct 25.5 L (34.0-46.0) % RDW 17.0 H (11.5-15.5) % Sodium 135 L (137-145) mmol/L Potassium 3.3 L (3.5-5.1) mmol/L BUN 30 H (7-17) mg/dL Creatinine 2.53 H (0.52-1.04) mg/dL Glucose 107 H (74-99) mg/dL POC Glucose (mg/dL) 111 H (70-110) mg/dL Calcium 7.2 L (8.4-10.2) mg/dL
--- NOTE | 2024-01-18 15:14 | P.PN ---
Subjective Progress Note Date: 01/18/24 Principal diagnosis: Acute septic arthritis and MSSA bacteremia 8-year-old female patient got transferred to the intensive care unit because of ongoing seizure activity and concerns for status epilepticus. The patient was hospitalized few days back with altered mentation and confusion. She apparently has history of dementia possible evidence status of his dementia and she has some baseline confusion. It was noted that her confusion was progressively getting worse and she also had diminished appetite also. In the emergency department, the patient was hemodynamically stable. Initial CAT scan of the brain was negative for any acute intracranial process and the patient had chronic appearing patchy periventricular white matter ischemic changes and atrophy. Chest x-ray was normal. X-ray of the left shoulder was done and the patient showed a large bony defect in the left humeral head articular space and the shoulder was quite swollen. This was suspected to be related to a traumatic injury. Pelvic x-ray showed also superior inferior pubic rami fracture on the right and subacute incomplete healed fractures and the superior pubic ramus was displaced by around 9 mm. Blood work showed leukocytosis with a white cell count of 19.3 with a hemoglobin of 7.4 and she has chronic baseline anemia. The patient also had a sodium level of 133 with a potassium level 5.4 and a chloride of 97 with a BUN of 63 and a creatinine of 2.9. Calcium was also elevated at 11.8. No significant abnormalities in liver function test. The viral screen was negative. UA was suggestive of an underlying infection and UTI was suspected. The patient also had some troponin leak. As such, the patient was admitted to the hospital for further workup and treatment. She was seen by n ephrology and the patient demonstrated progressive worsening in renal function and the creatinine delfina from 2.9 up to 4.05 and this morning is at 3.96. The white cell count dropped down to 9.3. Hemoglobin has been stable at 8.4 from today. The urine culture was positive for E. coli and this was an ESBL producing microorganism in the blood culture was also positive for Staph aureus/MSSA and this was identified on 2 separate blood cultures. Infectious disease was consulted and the patient was placed on IV cefazolin. Based on the staphylococcal growth in the blood and the joint swelling in the left shoulder, there is a concern for septic arthritis. MRI of the left shoulder was ordered and orthopedic consultation was also requested. The CT scan of the abdomen and pelvis showed no acute intra-abdominal process without any obstructive uropathy or calculus. Subacute fractures of the right inferior and superior rami/pubic rami as well as the right sacrum was noted. This afternoon, the patient was noted to have eye twitching and gaze deviation to the left and seizure-like activity. Subsequently, in the morning, the patient continued to have left gaze deviation with eye twitching and seizure- like tonic-clonic seizure activity as reported by the nursing staff that lasted less than a minute. The patient continued to have recurrent seizures following that lasting up to 5 minutes with the left gaze deviation and generalized clonic activity. The patient had been given a total of 2 mg of IV Ativan during the first episode another 2 mg of Ativan during the second episode bringing her up to a total of 4 mg. She was loaded with Keppra 500 mg IV and dose adjustment was done based on the underlying renal failure. Noted the patient does not have any history of seizure activity or seizure disorder. She is currently afebrile. I was asked to move the patient to the intensive care unit for further monitoring. A repeat CAT scan of the brain was done and it showed atrophy with chronic appearing periventricular white matter ischemic changes and the findings were essentially stable. At this point in time, the patient is on 2 L of oxygen by nasal cannula. The patient remains on IV cefazolin. On today's evaluation of 01/10/2024, the patient is being seen for a follow-up. Her neurostatus is improved slightly compared to yesterday and the patient was able to answer some simple commands. No focal neurological deficits. No facial asymmetry. Pupils are equal reactive to light. Lumbar puncture was done yesterday and the patient has only 1 nucleated cell without any significant elevation in the CSF protein. Cultures are still negative. This is essentially negative LP . There is CSF RBC was 17. CSF glucose was 107. No neck stiffness. No further seizure activity and the patient is currently on Vimpat 100 mg IV every 12 hours. MRI of the brain is to be done today. EEG was completed and showed encephalopathy and there was no indication for an acute or ongoing seizure activity. The plan for now is to proceed with an MRI of the brain and the patient is also going to need an MRI of the shoulder with concerns of septic arthritis. Ultrasound Doppler of the left upper extremity was also done today. This was done essentially to rule out DVT and the results are still pending for now. The patient is afebrile. The patient is hemodynamically stable. Pulse ox is 99% on 2 L of oxygen by nasal cannula. Remains on normal saline at rate of 75 cc an hour. ID is on the case. The patient was growing ESBL producing E. coli in the urine however she did not have any urinary symptoms and the repeat urine cultures have been negative. Based on that, no further antibiotic coverage was recommended in that regard. On today's evaluation of 01/11/2024, the patient is being seen for a follow-up. She is alert and communicating at this point in time. She was transferred out of the intensive care unit. The no further seizure activity and the patient remains on Vimpat. Lumbar puncture was negative. No neck stiffness. No focal neurological deficits. The patient remains on IV cefazolin regarding her staphylococcal septicemia. The patient also had a MRI of the brain that showed no acute abnormalities. MRI of the shoulder was quite abnormal and the patient was Considered to have possibility of septic arthritis. The patient had severe osseous and periarticular and surrounding soft tissue edema along with severe bone loss particularly in the articular surface of the head and underlying joints/bursa effusion as well as located fluid in the lateral deltoid shelf was seen measuring 4.3 cm in size and this made the possibility of septic arthritis more concerning. Based on that, the patient was taken to the operating room and the patient underwent a arthrotomy of the left shoulder along with irrigation debridement and incision and drainage of the left septic shoulder. The patient was found to have significant destruction involving the left humeral head. The bone was debrided. There was thickened synovial tissue that was excised. The joint was then copiously irrigated. A deep drain was placed into the glenohumeral joint. The skin was sutured with appropriate dressing was applied and the patient was brought back to the medical floor. Currently she is on 2 L of oxygen nasal cannula with a pulse ox of 92%. The blood work from today shows a WBC count 9.2, hemoglobin 7.3 and a platelet count of 257. BUN is at 49 with a creatinine of 4.06 and a sodium levels at 138. No other significant events overnight. MRI of the brain was nonspecific and showed atrophy and chronic appearing periventricular white matter ischemic changes. On 01/12/2024, the patient is being seen for a follow-up. Patient is doing well. No specific complaints. She underwent an orthopedic intervention which included arthrotomy of the left shoulder and irrigation debridement and incision and drainage of a left septic joint/arthritis. The cultures are still negative for now. No significant pain. Left upper extremity remains slightly swollen. The patient has no altered mentation. No seizure activity. She is calm and comfortable. She has dropped her hemoglobin down to 6.4 and the patient will be receiving unit of packed RBC. She continues to have chronic kidney disease with a BUN of 46 and a creatinine of 4.05 and her renal function remained stable. Sodium level is 138, bicarb is 19 And anion gap is at 7. The patient remains on IV cefazolin for now. The patient is also on oxygen at 2 L and she was transitioned to room air oxygen. Her pulse ox remains around 97%. No respiratory distress. No focal neurological deficits. On today's evaluation of 01/13/2024, the patient is being seen for a follow-up. The patient has no specific complaints. The left shoulder was debrided and the Gram stain and culture still negative and the patient remains on IV cefazolin. Renal function remained stable with a BUN of 45 with a creatinine of 4.1. No seizure activity. Hemodynamically stable. Remains on oxygen at 2 L/min nasal cannula with a pulse ox of 96%. White cell count of 8.5 with a hemoglobin of 8.1. No other new complaints otherwise for now. Resting comfortably in bed. Nephrology on the case regarding care acute on chronic kidney disease. ID is on the case. Orthopedic surgery is on the case. Neuro is on the case. The patient is currently on Vimpat. She has generalized global weakness yet no focal neurological deficit and no seizure activity. Noted the edema. No encephalopathy. On today's evaluation of 01/14/2024, the patient is resting comfortably in bed. No specific complaints. She was seen by general surgery regarding possibility of hematemesis during the current admission. Note that the patient's hemoglobin dropped down to as low as 6.4 and currently is up to 7.9. The plan is to do EGD at a later stage. The patient remains on room air oxygen with a pulse ox of 91%. No respiratory difficulties. No altered mentation. No seizure activity. She remains on IV cefazolin. Shoulder wound is showing presumptive Staph aureus, awaiting final cultures and sensitivities. Patient is seen today January 15, 2024 in follow-up on the selective care unit. She is currently sitting up in a chair. Awake and alert in no acute distress. No further seizure activity. She is still having ongoing issues with nausea and vomiting. She is maintaining O2 saturations in the 90s on 2 L/min per nasal cannula. Afebrile. Hemodynamically stable. Left shoulder wound is positive for methicillin sensitive Staphylococcus aureus. She remains on cefazolin. Patient was reevaluated today on 01/16/2024, patient continues to have intermittent episodes of nausea and vomiting, and coffee-ground emesis, seen by surgery, underwent EGD. Patient continues to have intermittent episodes of hematemesis, her EGD showed hiatal hernia and esophagitis. Patient is being closely followed by surgery on consultation. Surgery is considering tagged RBC study, also considering small bowel capsule endoscopy to rule out small bowel bleeding. Meantime hemoglobin is being monitored, and the patient is on IV Protonix. Pulmonary zavala, patient does not have a major issue, infection zavala, patient is being followed by infectious disease for her septic arthritis. And for her MSSA bacteremia hemoglobin today is 8.1 basic metabolic profile is normal, renal profile is worsening with creatinine 4.15 today, steadily getting worse since admission patient is now being considered for hemodialysis. Reevaluate today on 01/17/2024, patient continues to have recurrent episodes of hematemesis and coffee-ground emesis. EGD showed evidence of hiatal hernia and esophagitis. This is being addressed by surgery on the case. Patient is also being considered for hemodialysis as per nephrology, continues to have worsening renal profile. I did talk to her [id number] and she will in turn discussed her condition with her , it seems like the patient has multiple comorbidities, and overall prognosis is definitely guarded, patient is mostly bedbound, and may not be inappropriate to consider comfort care measures on this patient Reevaluate today on 01/18/2024, patient underwent her first hemodialysis today, she is feeling better, breathing easier, and no further episodes of emesis. Patient on 2 L nasal cannula with O2 sats of 99%, her last chest x-ray question pneumonia/airspace disease and pleural effusions, follow-up chest x-ray is pending and this will be done tomorrow WBC count is 15.2 hemoglobin 8.3 basic metabolic profile is normal BUN is 30 creatinine 2.53 Objective - Vital Signs Vital signs: Vital Signs Temp 97.7 F 01/18/24 14:08 Pulse 77 01/18/24 14:08 Resp 18 01/18/24 14:08 BP 132/63 01/18/24 14:08 Pulse Ox 99 01/18/24 11:20 FiO2 Intake & Output 01/17/24 01/18/24 01/18/24 18:59 06:59 18:59 Intake Total 50 400 Output Total 775 1100 Balance -725 -700 Weight 60.6 kg 49 kg Intake: IV 50 Oral 0 Hemodialysis 400 Output: Urine 775 Hemodialysis 1100 Other: Voiding Method External Catheter Indwelling Catheter Indwelling Catheter # Voids 0 # Bowel Movements 0 - Exam General: This is a 78-year-old female, Nonverbal, patient is on 2 L nasal cannula, not in distress. Derm: Skin warm and dry, normal coloration for ethnicity. Head: Atraumatic, normocephalic and symmetric. Eyes: no lid lag, and anicteric sclera, EOMI Mouth: no lip lesions, mucus membranes moist Cardiovascular: Normal S1-S2, no S3 gallop, 2/6 systolic murmur throughout the precordium. Lungs: Crackles at the bases no rhonchi no wheezes Abdominal: soft, nontender to palpation, no guarding, no appreciable organomegaly Ext: Left upper extremity in a sling, left arm edema, along with postsurgical changes in the left upper extremity Neuro: Alert. Able to move her arms and legs without any limitation. Generalized profound weakness in all 4 extremities. - Labs CBC & Chem 7: 01/18/24 13:44 01/18/24 13:44 Labs: Abnormal Lab Results - Last 24 Hours (Table) 01/18/24 01/18/24 01/18/24 Range/Units 06:05 13:44 13:44 WBC 15.2 H (3.8-10.6) k/uL RBC 2.97 L (3.80-5.40) m/uL Hgb 8.3 L (11.4-16.0) gm/dL Hct 25.5 L (34.0-46.0) % RDW 17.0 H (11.5-15.5) % Sodium 135 L (137-145) mmol/L Potassium 3.3 L (3.5-5.1) mmol/L BUN 30 H (7-17) mg/dL Creatinine 2.53 H (0.52-1.04) mg/dL Glucose 107 H (74-99) mg/dL POC Glucose (mg/dL) 111 H (70-110) mg/dL Calcium 7.2 L (8.4-10.2) mg/dL Assessment and Plan Assessment: Impression: Hematemesis, upper GI bleeding, being addressed by surgery on the case. Septic arthritis of left shoulder with subdeltoid abscess MSSA bacteremia Seizure disorder and new onset seizure Acute kidney injury, patient is heading to possibly renal replacement/hemodialysis Alzheimer's dementia Benign essential hypertension Hypothyroidism Dyslipidemia Iron deficiency anemia Recurrent urinary tract infections History of Parkinson's disease History of dementia according to her Recommendation: Patient was started on hemodialysis today. Continue present supportive care measures Continue cefazolin Continue seizure meds Continue Protonix Patient had negative diagnostic studies including EGD and including tagged RBC study Discussed her condition with sister in law and at bedside Time with Patient: Less than 30
[2024-01-18 16:28] LABS: Glucose,Whole Blood 107 mg/dL (70-110)
--- NOTE | 2024-01-18 17:18 | P.PN ---
Subjective Progress Note Date: 01/18/24 (delayed charting seen at 1030) Patient is a 78-year-old female with Alzheimer's dementia baseline alert and oriented x 1-2, hypertension, dyslipidemia, hypothyroidism, diabetes mellitus type 2 [id number], iron deficiency anemia, and multiple other comorbid conditions who presented to the emergency department with worsening confusion. On arrival to the ER her vital signs were within normal limits. CT of the head showed no acute intracranial process. Chest x-ray showed no acute p rocess. Left shoulder x-ray showed large bony defect in the humeral head articular area. Pelvic x-ray showed right superior and inferior pubic rami fracture which were subacute and incompletely healed. Initial laboratory analysis was remarkable for white blood cell count of 19.3, hemoglobin 7.4 ( baseline 7.5), sodium 133, potassium 5.4, BUN 62, creatinine 2.93 (baseline 0.9), and calcium 11.8. Troponin was mildly elevated at 0.251. Influenza A/B/COVID-19/RSV testing was negative. Urinalysis was equivocal for possible urinary tract infection. Patient was admitted for altered mentation with infection and type II non-STEMI. Cardiology, nephrology, and orthopedic surgery were consulted. Initially orthopedic surgery recommended conservative measures with sling to the left upper extremity. They also recommended that patient wait and weight-bear as tolerated with walker and assistance due to pubic rami fracture. Patient ultimately was found to have MSSA bacteremia and infectious disease was consulted. She underwent shoulder MRI which demonstrated a loculated fluid collection. Patient subsequently underwent I&D on 01/11/2024. Wound cultures from this again grew Staph aureus. This was determined to be the etiology of her bacteremia. She was transitioned to IV cefazolin. Patient had a PICC line placed. On 01/09/2024 patient developed status epilepticus requiring transfer to the ICU. Patient was treated with IV Ativan and Keppra and status resolved. Neurology was consulted. MRI of the brain showed no acute process and the patient was maintained on Vimpat. She subsequently was downgraded back to our selective care floor. On 01/12 she started having large amounts of coffee- ground emesis. General surgery was consulted and she subsequently underwent EGD on 01/15/2024 which demonstrated LA grade B erosive esophagitis with no stigmata of bleeding. She also underwent tagged red blood cell scan which showed no active GI bleeding. Hemoglobin remained stable. Unfortunately renal function did not improve. Patient was developing worsening acidosis and signs of uremia. Nephrology recommended hemodialysis. Patient seen and examined at bedside while on dialysis. She complains of her buttocks hurting, being cold, and being fatigued. Family present at bedside and all questions answered. Vital signs reviewed General: Nontoxic, no distress, appears at stated age Cardiovascular: S1S2 reg, no murmur Lungs: Coarse breath sounds bilateral , no accessory muscle use Abdominal: Soft, nontender to palpation, no guarding, Ext: No gross muscle atrophy, 2+ edema bilateral lower extremities, 2+ edema left upper extremity, no contractures, dressing over left shoulder Neuro: CN II-XI grossly intact, no focal neuro deficits Psych: Alert, oriented, appropriate affect Assessment/Plan: Nonoliguric acute kidney injury now requiring hemodialysis Hypokalemia Anion gap metabolic acidosis Hyperchloremia -Nephrology note reviewed: Hemodialysis today and tomorrow -Lasix 60 mg oral daily -Sodium bicarb 650 mg p.o. daily -Repeat basic metabolic profile in a.m. Acute GI bleeding secondary to erosive esophagitis Acute on chronic iron deficiency anemia -Status post EGD and tagged red blood cell scan with no definitive source of bleeding -Continue Protonix 40 mg IV push twice daily -Follow CBC -Status post 2 units of packed red blood cells - asorbic acid, darbepoetin 40 mcg subcu q. 7 days -Surgery note reviewed: Patient feels that her hematemesis is due to her iron pill and that is why her nausea is dark. Iron pill discontinued. Left shoulder septic arthritis with resultant M SSA bacteremia status post I&D -Infectious disease note reviewed: Patient with MSSA bacteremia he has been started on dialysis. Monitor white blood cell count closely.Rocephin for 6-week course on discharge. -White blood cell count increasing. Will need to continue to monitor to see if we are losing control of the infection in her shoulder -Cefazolin 1 g IV every 24 hours, patient is day #17 of cephalosporin and based antibiotics. - Ortho signed off. recs: Prescription was placed for a lymphedema compression sleeve for the left upper extremity, this was discussed with case management. Due to the amount of swelling in the extremity from the surgery and current condition we are recommending use of this for the next 6 to 8 weeks. - aaron wrap to left upper extremity -Pulmonary note reviewed: Continue current care Status epilepticus, resolved -Continue with Vimpat 100 mg twice daily -Neurology has signed off. Follow-up with neurologist as outpatient in 1 to 2 weeks. Hypokalemia -Potassium 20 mill equivalents p.o. x 1 Type II NSTEMI, due to acute medical illness HTN HLD -Cardiology signed off signed off -Continue aspirin 81 mg daily and atorvastatin 40 mg daily. -Norvasc 5 mg daily History of Alzheimer's dementia History of Parkinson's disease -Continue carbidopa levodopa 25/100 mg tablets 4 times daily. Right-sided superior and inferior pubic rami fractures, chronic - weight bare as tolerated with walker - ortho signed off Type II non-insulin dependent diabetes mellitus -Continue to hold metformin -sliding scale insulin, monitor for hypoglycemia - A1C 6.1 Hypothyroidism -levothyroxine 100 mcg daily. TSH 1.200 Acute metabolic encephalopathy, resolved Imaging: None new Data Review: Labs reviewed from today include CBC and basic metabolic profile which are remarkable for white blood cell count 15.2, hemoglobin 8.3, sodium 135, potassium 3.3. DVT prophylaxis: SCDs Anticipated discharge date: in 3-[address]: [facility] This dictation was prepared using [employer] voice recognition software. Though every attempt is made to correct errors during dictation some may still exist. Objective - Vital Signs Vital signs: Vital Signs Temp 98 F 01/18/24 16:00 Pulse 79 01/18/24 16:00 Resp 20 01/18/24 16:00 BP 132/71 01/18/24 16:00 Pulse Ox 98 01/18/24 16:00 FiO2 Intake & Output 01/17/24 01/18/24 01/18/24 18:59 06:59 18:59 Intake Total 50 400 Output Total 775 1100 Balance -725 -700 Weight 60.6 kg 49 kg Intake: IV 50 Oral 0 Hemodialysis 400 Output: Urine 775 Hemodialysis 1100 Other: Voiding Method External Catheter Indwelling Catheter Indwelling Catheter # Voids 0 # Bowel Movements 0 - Labs CBC & Chem 7: 01/18/24 13:44 01/18/24 13:44 Labs: Abnormal Lab Results - Last 24 Hours (Table) 01/18/24 01/18/24 01/18/24 Range/Units 06:05 13:44 13:44 WBC 15.2 H (3.8-10.6) k/uL RBC 2.97 L (3.80-5.40) m/uL Hgb 8.3 L (11.4-16.0) gm/dL Hct 25.5 L (34.0-46.0) % RDW 17.0 H (11.5-15.5) % Sodium 135 L (137-145) mmol/L Potassium 3.3 L (3.5-5.1) mmol/L BUN 30 H (7-17) mg/dL Creatinine 2.53 H (0.52-1.04) mg/dL Glucose 107 H (74-99) mg/dL POC Glucose (mg/dL) 111 H (70-110) mg/dL Calcium 7.2 L (8.4-10.2) mg/dL
[2024-01-18] MEDS: POTASSIUM CHLORIDE ER 20 MEQ TAB.ER PO STA (17:29)
[2024-01-18 20:19] LABS: Glucose,Whole Blood 107 mg/dL (70-110)
[2024-01-19] MEDS: polyethylene glycoL 3350 17 GM POWD.PACK PO STA (00:11)
[2024-01-19 06:06] LABS: Glucose,Whole Blood 96 mg/dL (70-110)
--- NOTE | 2024-01-19 07:58 | XR ---
EXAMINATION TYPE: XR chest 1V portable DATE OF EXAM: 01/19/2024 HISTORY: Shortness of breath. COMPARISON: 01/17/2024 TECHNIQUE: Single view of the chest is submitted. FINDINGS: Demonstrated are scattered senescent parenchymal change. Basilar increased density may reflect infiltrate, atelectasis and/or effusion. No significant change appreciated. The heart is stable. Hilar and mediastinal structures are within normal limits. Degenerative changes are seen of the dorsal spine. IMPRESSION: 1. Basilar increased density may reflect infiltrate, atelectasis and/or effusion. No significant hero nge appreciated.
[2024-01-19 09:11] LABS: Anisocytosis Slight; Basophils % (A) 0 %; Eosinophils % (A) 0 %; HCT 23.7 % (34.0-46.0); HGB 7.7 gm/dL (11.4-16.0); Lymphocytes # (A) 0.8 k/uL (1.0-4.8); Lymphocytes % (A) 8 %; MCH 27.8 pg (25.0-35.0); MCHC 32.3 g/dL (31.0-37.0); MCV 85.9 fL (80.0-100.0); Mean Platelet Volume 7.4; Monocytes # (A) 0.3 k/uL (0-1.0); Monocytes % (A) 3 %; Neutrophils # (A) 9.6 k/uL (1.3-7.7); Neutrophils % (A) 89 %; Platelet Count 259 k/uL (150-450); RBC 2.76 m/uL (3.80-5.40); RDW 17.2 % (11.5-15.5); WBC 10.8 k/uL (3.8-10.6)
[2024-01-19 10:29] LABS: African American GFR (CKD) 16 (>60 ml/min/1.73 sqM); Anion Gap 7 mmol/L; Blood Urea Nitrogen 33 mg/dL (7-17); C Reactive Protein 1.3 mg/dL (<1.0); Calcium 6.9 mg/dL (8.4-10.2); Carbon Dioxide 25 mmol/L (22-30); Chloride 105 mmol/L (98-107); Glucose 88 mg/dL (74-99); Non-African American GFR(CKD) 14 (>60 ml/min/1.73 sqM); Potassium 3.2 mmol/L (3.5-5.1); Sodium 137 mmol/L (137-145)
[2024-01-19] MEDS: FUROSEMIDE 20 MG TAB PO SCH (11:46)
[2024-01-19] MEDS: POTASSIUM CHLORIDE ER 20 MEQ TAB.ER PO STA (11:46)
[2024-01-19 11:57] LABS: Glucose,Whole Blood 91 mg/dL (70-110)
--- NOTE | 2024-01-19 13:25 | P.PN ---
Subjective Progress Note Date: 01/19/24 Principal diagnosis: Acute septic arthritis and MSSA bacteremia 8-year-old female patient got transferred to the intensive care unit because of ongoing seizure activity and concerns for status epilepticus. The patient was hospitalized few days back with altered mentation and confusion. She apparently has history of dementia possible evidence status of his dementia and she has some baseline confusion. It was noted that her confusion was progressively getting worse and she also had diminished appetite also. In the emergency department, the patient was hemodynamically stable. Initial CAT scan of the brain was negative for any acute intracranial process and the patient had chronic appearing patchy periventricular white matter ischemic changes and atrophy. Chest x-ray was normal. X-ray of the left shoulder was done and the patient showed a large bony defect in the left humeral head articular space and the shoulder was quite swollen. This was suspected to be related to a traumatic injury. Pelvic x-ray showed also superior inferior pubic rami fracture on the right and subacute incomplete healed fractures and the superior pubic ramus was displaced by around 9 mm. Blood work showed leukocytosis with a white cell count of 19.3 with a hemoglobin of 7.4 and she has chronic baseline anemia. The patient also had a sodium level of 133 with a potassium level 5.4 and a chloride of 97 with a BUN of 63 and a creatinine of 2.9. Calcium was also elevated at 11.8. No significant abnormalities in liver function test. The viral screen was negative. UA was suggestive of an underlying infection and UTI was suspected. The patient also had some troponin leak. As such, the patient was admitted to the hospital for further workup and treatment. She was seen by n ephrology and the patient demonstrated progressive worsening in renal function and the creatinine delfina from 2.9 up to 4.05 and this morning is at 3.96. The white cell count dropped down to 9.3. Hemoglobin has been stable at 8.4 from today. The urine culture was positive for E. coli and this was an ESBL producing microorganism in the blood culture was also positive for Staph aureus/MSSA and this was identified on 2 separate blood cultures. Infectious disease was consulted and the patient was placed on IV cefazolin. Based on the staphylococcal growth in the blood and the joint swelling in the left shoulder, there is a concern for septic arthritis. MRI of the left shoulder was ordered and orthopedic consultation was also requested. The CT scan of the abdomen and pelvis showed no acute intra-abdominal process without any obstructive uropathy or calculus. Subacute fractures of the right inferior and superior rami/pubic rami as well as the right sacrum was noted. This afternoon, the patient was noted to have eye twitching and gaze deviation to the left and seizure-like activity. Subsequently, in the morning, the patient continued to have left gaze deviation with eye twitching and seizure- like tonic-clonic seizure activity as reported by the nursing staff that lasted less than a minute. The patient continued to have recurrent seizures following that lasting up to 5 minutes with the left gaze deviation and generalized clonic activity. The patient had been given a total of 2 mg of IV Ativan during the first episode another 2 mg of Ativan during the second episode bringing her up to a total of 4 mg. She was loaded with Keppra 500 mg IV and dose adjustment was done based on the underlying renal failure. Noted the patient does not have any history of seizure activity or seizure disorder. She is currently afebrile. I was asked to move the patient to the intensive care unit for further monitoring. A repeat CAT scan of the brain was done and it showed atrophy with chronic appearing periventricular white matter ischemic changes and the findings were essentially stable. At this point in time, the patient is on 2 L of oxygen by nasal cannula. The patient remains on IV cefazolin. On today's evaluation of 01/10/2024, the patient is being seen for a follow-up. Her neurostatus is improved slightly compared to yesterday and the patient was able to answer some simple commands. No focal neurological deficits. No facial asymmetry. Pupils are equal reactive to light. Lumbar puncture was done yesterday and the patient has only 1 nucleated cell without any significant elevation in the CSF protein. Cultures are still negative. This is essentially negative LP . There is CSF RBC was 17. CSF glucose was 107. No neck stiffness. No further seizure activity and the patient is currently on Vimpat 100 mg IV every 12 hours. MRI of the brain is to be done today. EEG was completed and showed encephalopathy and there was no indication for an acute or ongoing seizure activity. The plan for now is to proceed with an MRI of the brain and the patient is also going to need an MRI of the shoulder with concerns of septic arthritis. Ultrasound Doppler of the left upper extremity was also done today. This was done essentially to rule out DVT and the results are still pending for now. The patient is afebrile. The patient is hemodynamically stable. Pulse ox is 99% on 2 L of oxygen by nasal cannula. Remains on normal saline at rate of 75 cc an hour. ID is on the case. The patient was growing ESBL producing E. coli in the urine however she did not have any urinary symptoms and the repeat urine cultures have been negative. Based on that, no further antibiotic coverage was recommended in that regard. On today's evaluation of 01/11/2024, the patient is being seen for a follow-up. She is alert and communicating at this point in time. She was transferred out of the intensive care unit. The no further seizure activity and the patient remains on Vimpat. Lumbar puncture was negative. No neck stiffness. No focal neurological deficits. The patient remains on IV cefazolin regarding her staphylococcal septicemia. The patient also had a MRI of the brain that showed no acute abnormalities. MRI of the shoulder was quite abnormal and the patient was Considered to have possibility of septic arthritis. The patient had severe osseous and periarticular and surrounding soft tissue edema along with severe bone loss particularly in the articular surface of the head and underlying joints/bursa effusion as well as located fluid in the lateral deltoid shelf was seen measuring 4.3 cm in size and this made the possibility of septic arthritis more concerning. Based on that, the patient was taken to the operating room and the patient underwent a arthrotomy of the left shoulder along with irrigation debridement and incision and drainage of the left septic shoulder. The patient was found to have significant destruction involving the left humeral head. The bone was debrided. There was thickened synovial tissue that was excised. The joint was then copiously irrigated. A deep drain was placed into the glenohumeral joint. The skin was sutured with appropriate dressing was applied and the patient was brought back to the medical floor. Currently she is on 2 L of oxygen nasal cannula with a pulse ox of 92%. The blood work from today shows a WBC count 9.2, hemoglobin 7.3 and a platelet count of 257. BUN is at 49 with a creatinine of 4.06 and a sodium levels at 138. No other significant events overnight. MRI of the brain was nonspecific and showed atrophy and chronic appearing periventricular white matter ischemic changes. On 01/12/2024, the patient is being seen for a follow-up. Patient is doing well. No specific complaints. She underwent an orthopedic intervention which included arthrotomy of the left shoulder and irrigation debridement and incision and drainage of a left septic joint/arthritis. The cultures are still negative for now. No significant pain. Left upper extremity remains slightly swollen. The patient has no altered mentation. No seizure activity. She is calm and comfortable. She has dropped her hemoglobin down to 6.4 and the patient will be receiving unit of packed RBC. She continues to have chronic kidney disease with a BUN of 46 and a creatinine of 4.05 and her renal function remained stable. Sodium level is 138, bicarb is 19 And anion gap is at 7. The patient remains on IV cefazolin for now. The patient is also on oxygen at 2 L and she was transitioned to room air oxygen. Her pulse ox remains around 97%. No respiratory distress. No focal neurological deficits. On today's evaluation of 01/13/2024, the patient is being seen for a follow-up. The patient has no specific complaints. The left shoulder was debrided and the Gram stain and culture still negative and the patient remains on IV cefazolin. Renal function remained stable with a BUN of 45 with a creatinine of 4.1. No seizure activity. Hemodynamically stable. Remains on oxygen at 2 L/min nasal cannula with a pulse ox of 96%. White cell count of 8.5 with a hemoglobin of 8.1. No other new complaints otherwise for now. Resting comfortably in bed. Nephrology on the case regarding care acute on chronic kidney disease. ID is on the case. Orthopedic surgery is on the case. Neuro is on the case. The patient is currently on Vimpat. She has generalized global weakness yet no focal neurological deficit and no seizure activity. Noted the edema. No encephalopathy. On today's evaluation of 01/14/2024, the patient is resting comfortably in bed. No specific complaints. She was seen by general surgery regarding possibility of hematemesis during the current admission. Note that the patient's hemoglobin dropped down to as low as 6.4 and currently is up to 7.9. The plan is to do EGD at a later stage. The patient remains on room air oxygen with a pulse ox of 91%. No respiratory difficulties. No altered mentation. No seizure activity. She remains on IV cefazolin. Shoulder wound is showing presumptive Staph aureus, awaiting final cultures and sensitivities. Patient is seen today January 15, 2024 in follow-up on the selective care unit. She is currently sitting up in a chair. Awake and alert in no acute distress. No further seizure activity. She is still having ongoing issues with nausea and vomiting. She is maintaining O2 saturations in the 90s on 2 L/min per nasal cannula. Afebrile. Hemodynamically stable. Left shoulder wound is positive for methicillin sensitive Staphylococcus aureus. She remains on cefazolin. Patient was reevaluated today on 01/16/2024, patient continues to have intermittent episodes of nausea and vomiting, and coffee-ground emesis, seen by surgery, underwent EGD. Patient continues to have intermittent episodes of hematemesis, her EGD showed hiatal hernia and esophagitis. Patient is being closely followed by surgery on consultation. Surgery is considering tagged RBC study, also considering small bowel capsule endoscopy to rule out small bowel bleeding. Meantime hemoglobin is being monitored, and the patient is on IV Protonix. Pulmonary zavala, patient does not have a major issue, infection zavala, patient is being followed by infectious disease for her septic arthritis. And for her MSSA bacteremia hemoglobin today is 8.1 basic metabolic profile is normal, renal profile is worsening with creatinine 4.15 today, steadily getting worse since admission patient is now being considered for hemodialysis. Reevaluate today on 01/17/2024, patient continues to have recurrent episodes of hematemesis and coffee-ground emesis. EGD showed evidence of hiatal hernia and esophagitis. This is being addressed by surgery on the case. Patient is also being considered for hemodialysis as per nephrology, continues to have worsening renal profile. I did talk to her [id number] and she will in turn discussed her condition with her , it seems like the patient has multiple comorbidities, and overall prognosis is definitely guarded, patient is mostly bedbound, and may not be inappropriate to consider comfort care measures on this patient Reevaluate today on 01/18/2024, patient underwent her first hemodialysis today, she is feeling better, breathing easier, and no further episodes of emesis. Patient on 2 L nasal cannula with O2 sats of 99%, her last chest x-ray question pneumonia/airspace disease and pleural effusions, follow-up chest x-ray is pending and this will be done tomorrow WBC count is 15.2 hemoglobin 8.3 basic metabolic profile is normal BUN is 30 creatinine 2.53 Patient was reevaluated today on 01/19/2024, patient is receiving hemodialysis this morning, she seems to be doing better, her mentation seems to be slightly improving, no further episodes of nausea vomiting or emesis. Chest x-ray continues to show bibasilar infiltrates and atelectasis and possibly some effusion however clinically the patient is doing better than what is noted on the chest x-ray. Patient will have about 500 cc of fluid removed with dialysis today WBC count is 10.8 hemoglobin 7.7 basic metabolic profile is normal BUN is 33 creatinine 3.02 Objective - Vital Signs Vital signs: Vital Signs Temp 98.2 F 01/19/24 11:48 Pulse 77 01/19/24 13:06 Resp 16 01/19/24 11:48 BP 121/64 01/19/24 11:48 Pulse Ox 95 01/19/24 11:28 FiO2 Intake & Output 01/18/24 01/19/24 01/19/24 18:59 06:59 18:59 Intake Total 400 400 Output Total 1100 775 900 Balance -700 -775 -500 Weight 48.5 kg 48.5 kg Intake: Oral 0 0 Hemodialysis 400 400 Output: Urine 775 Hemodialysis 1100 900 Other: Voiding Method Indwelling Catheter Indwelling Catheter Indwelling Catheter # Voids 0 0 # Bowel Movements 0 0 - Exam General: This is a 78-year-old female, Nonverbal, patient is on 2 L nasal cannula, not in distress. Derm: Skin warm and dry, normal coloration for ethnicity. Head: Atraumatic, normocephalic and symmetric. Eyes: no lid lag, and anicteric sclera, EOMI Mouth: no lip lesions, mucus membranes moist Cardiovascular: Normal S1-S2, no S3 gallop, 2/6 systolic murmur throughout the precordium. Lungs: Crackles at the bases no rhonchi no wheezes Abdominal: soft, nontender to palpation, no guarding, no appreciable organomegaly Ext: Left upper extremity in a sling, left arm edema, along with postsurgical changes in the left upper extremity Neuro: Alert. Able to move her arms and legs without any limitation. Generalized profound weakness in all 4 extremities. - Labs CBC & Chem 7: 01/19/24 08:25 01/19/24 08:25 Labs: Abnormal Lab Results - Last 24 Hours (Table) 01/18/24 01/18/24 01/19/24 Range/Units 13:44 13:44 08:25 WBC 15.2 H (3.8-10.6) k/uL RBC 2.97 L (3.80-5.40) m/uL Hgb 8.3 L (11.4-16.0) gm/dL Hct 25.5 L (34.0-46.0) % RDW 17.0 H (11.5-15.5) % Neutrophils # (1.3-7.7) k/uL Lymphocytes # (1.0-4.8) k/uL Sodium 135 L (137-145) mmol/L Potassium 3.3 L 3.2 L (3.5-5.1) mmol/L BUN 30 H 33 H (7-17) mg/dL Creatinine 2.53 H 3.02 H (0.52-1.04) mg/dL Glucose 107 H (74-99) mg/dL Calcium 7.2 L 6.9 L (8.4-10.2) mg/dL C-Reactive Protein 1.3 H (<1.0) mg/dL 01/19/24 Range/Units 08:25 WBC 10.8 H (3.8-10.6) k/uL RBC 2.76 L (3.80-5.40) m/uL Hgb 7.7 L (11.4-16.0) gm/dL Hct 23.7 L (34.0-46.0) % RDW 17.2 H (11.5-15.5) % Neutrophils # 9.6 H (1.3-7.7) k/uL Lymphocytes # 0.8 L (1.0-4.8) k/uL Sodium (137-145) mmol/L Potassium (3.5-5.1) mmol/L BUN (7-17) mg/dL Creatinine (0.52-1.04) mg/dL Glucose (74-99) mg/dL Calcium (8.4-10.2) mg/dL C-Reactive Protein (<1.0) mg/dL Assessment and Plan Assessment: Impression: Hematemesis, upper GI bleeding, resolved Septic arthritis of left shoulder with subdeltoid abscess MSSA bacteremia Seizure disorder and new onset seizure Acute kidney injury, patient is receiving hemodialysis today. Alzheimer's dementia Benign essential hypertension Hypothyroidism Dyslipidemia Iron deficiency anemia Recurrent urinary tract infections History of Parkinson's disease History of dementia according to her Recommendation: Continue hemodialysis Continue present supportive care measures Continue cefazolin Continue seizure meds Continue Protonix Will continue to Time with Patient: Less than 30
--- NOTE | 2024-01-19 13:35 | P.PN ---
Subjective Progress Note Date: 01/19/24 CHIEF COMPLAINT: Coffee-ground emesis HISTORY OF PRESENT ILLNESS: Patient status post EGD results showing diaphragmatic hiatal hernia and erosive esophagitis. Patient receiving hemodialysis again today. She has had no further vomiting. Black emesis might be contributed to patient's iron pills. Hemoglobin is trending down from 8.3- 7.7 PHYSICAL EXAM: VITAL SIGNS: Reviewed. GENERAL: Well-developed in no acute distress. HEENT: No sclera icterus. Extraocular movements grossly intact. Moist buccal mucosa. Head is atraumatic, normocephalic. ABDOMEN: Soft. Nondistended. Nontender. NEUROLOGIC: Alert and oriented. Cranial nerves II through XII grossly intact. ASSESSMENT: 1. Hematemesis 2. Status post EGD with evidence of hiatal hernia and esophagitis 3. Acute blood loss anemia with GI bleed PLAN: -Continue to monitor -Iron pill discontinued yesterday due to it possibly contributing to the black emesis -Continue to monitor hemoglobin -Continue to monitor for any signs or symptoms of bleeding -Continue renal diet -Continue IV Protonix Physician Inventory Control Assistant note has been reviewed by physician. Signing provider agrees with the documented findings, assessment, and plan of care. Please see additional documentation below CHIEF COMPLAINT: GI bleed HISTORY OF PRESENT ILLNESS: The patient is a 78-year-old female with history hematemesis. Patient is on hemodialysis. No further emesis. No blood in stools. ROS: No fevers or chills. No new chest pain. No productive sputum PHYSICAL EXAM: VITAL SIGNS: Reviewed CONSTITUTIONAL: Well developed and in no acute distress. EYES: Conjuctivae without sclera icterus. Extraocular movements grossly intact. HEAD, EARS, NOSE, THROAT: Moist buccal mucosa. Head is atraumatic, normocephalic. Hears conversational speech. No nasal drainage. RESPIRATORY: Non-labored respirations and equal bilateral excursions. CARDIOVASCULAR: Palpable 2+ radial pulses. ABDOMEN: No peritonitis. MUSCULOSKELETAL: No gross deformity of the lower extremities noted. No clubbing. No cyanosis. SKIN: Good skin turgor. Well perfused. NEUROLOGIC: Cranial nerves II through XII grossly intact. No focal or lateralizing signs. PSYCH: Alert to person. CLINICAL LABS: Reviewed. Hemoglobin trending downward ASSESSMENT: 1. Acute blood loss anemia with GI bleed 2. Hematemesis 3. Renal failure, on hemodialysis PLAN: 1. Monitor for signs of bleeding. 2. Discontinue medications that contribute to bleeding including iron pill, red food dye 3. Recommend Protonix Objective - Vital Signs Vital signs: Vital Signs Temp 98.2 F 01/19/24 11:48 Pulse 77 01/19/24 13:06 Resp 16 01/19/24 11:48 BP 121/64 01/19/24 11:48 Pulse Ox 95 01/19/24 11:28 FiO2 Intake & Output 01/18/24 01/19/24 01/19/24 18:59 06:59 18:59 Intake Total 400 400 Output Total 1100 775 900 Balance -700 -775 -500 Weight 48.5 kg 48.5 kg Intake: Oral 0 0 Hemodialysis 400 400 Output: Urine 775 Hemodialysis 1100 900 Other: Voiding Method Indwelling Catheter Indwelling Catheter Indwelling Catheter # Voids 0 0 # Bowel Movements 0 0 - Labs CBC & Chem 7: 01/21/24 07:25 01/22/24 07:28 Labs: Abnormal Lab Results - Last 24 Hours (Table) 01/18/24 01/18/24 01/19/24 Range/Units 13:44 13:44 08:25 WBC 15.2 H (3.8-10.6) k/uL RBC 2.97 L (3.80-5.40) m/uL Hgb 8.3 L (11.4-16.0) gm/dL Hct 25.5 L (34.0-46.0) % RDW 17.0 H (11.5-15.5) % Neutrophils # (1.3-7.7) k/uL Lymphocytes # (1.0-4.8) k/uL Sodium 135 L (137-145) mmol/L Potassium 3.3 L 3.2 L (3.5-5.1) mmol/L BUN 30 H 33 H (7-17) mg/dL Creatinine 2.53 H 3.02 H (0.52-1.04) mg/dL Glucose 107 H (74-99) mg/dL Calcium 7.2 L 6.9 L (8.4-10.2) mg/dL C-Reactive Protein 1.3 H (<1.0) mg/dL 01/19/24 Range/Units 08:25 WBC 10.8 H (3.8-10.6) k/uL RBC 2.76 L (3.80-5.40) m/uL Hgb 7.7 L (11.4-16.0) gm/dL Hct 23.7 L (34.0-46.0) % RDW 17.2 H (11.5-15.5) % Neutrophils # 9.6 H (1.3-7.7) k/uL Lymphocytes # 0.8 L (1.0-4.8) k/uL Sodium (137-145) mmol/L Potassium (3.5-5.1) mmol/L BUN (7-17) mg/dL Creatinine (0.52-1.04) mg/dL Glucose (74-99) mg/dL Calcium (8.4-10.2) mg/dL C-Reactive Protein (<1.0) mg/dL
--- NOTE | 2024-01-19 15:24 | P.PN ---
Subjective Patient is seen for follow-up for acute kidney injury. Patient is currently seen on hemodialysis. She is tolerating her treatment well. Nausea has improved. Objective - Vital Signs Vital signs: Vital Signs Temp 98.2 F 01/19/24 11:48 Pulse 77 01/19/24 13:06 Resp 16 01/19/24 11:48 BP 121/64 01/19/24 11:48 Pulse Ox 95 01/19/24 11:28 FiO2 Intake & Output 01/18/24 01/19/24 01/19/24 18:59 06:59 18:59 Intake Total 400 400 Output Total 1100 775 900 Balance -700 -775 -500 Weight 48.5 kg 48.5 kg Intake: Oral 0 0 Hemodialysis 400 400 Output: Urine 775 Hemodialysis 1100 900 Other: Voiding Method Indwelling Catheter Indwelling Catheter Indwelling Catheter # Voids 0 0 # Bowel Movements 0 1 - Exam Patient is awake, comfortable, no acute distress Examination of the heart S1 and S2 Examination of the lungs decreased breath sounds at the bases Abdomen is soft nontender Examination of lower extremities shows 1+ bilateral edema, upper and lower extre mities worse in the left upper extremity [employer]PERATOR exam shows patient is moving all 4 extremities. - Labs CBC & Chem 7: 01/19/24 08:25 01/19/24 08:25 Labs: Abnormal Lab Results - Last 24 Hours (Table) 01/19/24 01/19/24 Range/Units 08:25 08:25 WBC 10.8 H (3.8-10.6) k/uL RBC 2.76 L (3.80-5.40) m/uL Hgb 7.7 L (11.4-16.0) gm/dL Hct 23.7 L (34.0-46.0) % RDW 17.2 H (11.5-15.5) % Neutrophils # 9.6 H (1.3-7.7) k/uL Lymphocytes # 0.8 L (1.0-4.8) k/uL Potassium 3.2 L (3.5-5.1) mmol/L BUN 33 H (7-17) mg/dL Creatinine 3.02 H (0.52-1.04) mg/dL Calcium 6.9 L (8.4-10.2) mg/dL C-Reactive Protein 1.3 H (<1.0) mg/dL Assessment and Plan Assessment: 1. Acute kidney injury, ATN secondary to severe anemia and sepsis. UA shows 2+ protein large blood and WBCs 69. Ultrasound shows no hydronephrosis on the right kidney. Left kidney could not be visualized due to patient position. CT scan shows no evidence of obstructive uropathy. Started hemodialysis on 01/18/2024 due to uremic symptoms and low urine output. 2. Acute blood loss anemia, most likely GI bleed. Being transfused packed RBCs. Iron studies show significant iron deficiency however IV iron was held due to active infection. This can be started now. 3. Hyperkalemia on admission associated with acute kidney injury, currently improved 4. Hypertension with blood pressure currently on the lower side. 5. UTI with urine culture growing E. coli 6. Bacteremia with blood cultures growing MSSA 7. Mild volume overload with significant third spacing Plan: Hemodialysis today and repeat in a.m. Can add IV iron now as patient has been on antibiotics for about 2 weeks. Encourage increase oral intake
--- NOTE | 2024-01-19 16:32 | P.PN ---
Subjective Progress Note Date: 01/19/24 Principal diagnosis: Reason for follow-up is MSSA bacteremia Patient is a 78-year-old female past medical history pertinent for diabetes mellitus hypertension hyperlipidemia dementia and depression brought into the hospital for evaluation of worsening dementia/confusion noticed to have positive UA and did have MSSA bacteremia also abnormality to the left humeral head on the x-ray.Patient is status post Arthrotomy left shoulder/irrigation and debridement/incision and drainage left septic shoulder completed on 01/11/2024. On today's evaluation that is 01/19/2024, Patient is afebrile patient is currently on 2 L nasal cannula oxygen and denies having any shortness of breath, the patient denies any chest pain or cough, the patient denies any nausea vomiting did not have any abdominal pain and no diarrhea. Patient white count is 10.8 creatinine 3.02 Objective - Vital Signs Vital signs: Vital Signs Temp 98.0 F 01/19/24 15:22 Pulse 79 01/19/24 15:22 Resp 16 01/19/24 15:22 BP 123/59 01/19/24 15:22 Pulse Ox 99 01/19/24 15:22 FiO2 Intake & Output 01/18/24 01/19/24 01/19/24 18:59 06:59 18:59 Intake Total 400 400 Output Total 0676 505 6885 Balance -700 -916 -477 Weight 48.5 kg 48.5 kg Intake: Oral 0 0 Hemodialysis 400 400 Output: Urine 775 125 Hemodialysis 1100 900 Other: Voiding Method Indwelling Catheter Indwelling Catheter Indwelling Catheter # Voids 0 0 # Bowel Movements 0 1 - Exam GENERAL DESCRIPTION: An elderly female lying in bed in no distress RESPIRATORY SYSTEM: Unlabored breathing , decreased breath sounds at bases HEART: S1 S2 regular rate and rhythm , ABDOMEN: Soft , no tenderness EXTREMITIES: No edema feet - Labs CBC & Chem 7: 01/19/24 08:25 01/19/24 08:25 Labs: Abnormal Lab Results - Last 24 Hours (Table) 01/19/24 01/19/24 Range/Units 08:25 08:25 WBC 10.8 H (3.8-10.6) k/uL RBC 2.76 L (3.80-5.40) m/uL Hgb 7.7 L (11.4-16.0) gm/dL Hct 23.7 L (34.0-46.0) % RDW 17.2 H (11.5-15.5) % Neutrophils # 9.6 H (1.3-7.7) k/uL Lymphocytes # 0.8 L (1.0-4.8) k/uL Potassium 3.2 L (3.5-5.1) mmol/L BUN 33 H (7-17) mg/dL Creatinine 3.02 H (0.52-1.04) mg/dL Calcium 6.9 L (8.4-10.2) mg/dL C-Reactive Protein 1.3 H (<1.0) mg/dL Assessment and Plan (1) MSSA bacteremia Current Visit: Yes Status: Acute Code(s): R78.81 - BACTEREMIA; B95.61 - METHICILLIN SUSCEP STAPH INFCT CAUSING DIS CLASSD ELSWHR SNOMED Code(s): 621910694 (2) Septic arthritis of shoulder, left Current Visit: Yes Status: Acute Code(s): M00.9 - PYOGENIC ARTHRITIS, UNSPECIFIED SNOMED Code(s): 93178007 Plan: 1-patient with MSSA bacteremia suspected left shoulder septic arthritis which was confirmed on MRI and patient is status post arthrotomy left shoulder/irrigation and debridement/incision and drainage left septic shoulder completed on 01/11/2024, cultures currently growing MSSA 2patient is afebrile patient white count is trending down repeat blood culture negative, patient continue with the cefazolin while inpatient and monitor cl inical course closely Dictation was produced using [employer] dictation software. please excuse any gram matical, word or spelling errors. Time with Patient: Less than 30
[2024-01-19 17:13] LABS: Glucose,Whole Blood 109 mg/dL (70-110)
--- NOTE | 2024-01-19 18:23 | P.PN ---
Subjective Progress Note Date: 01/19/24 (delayed charting seen at 0930) Patient is a 78-year-old female with Alzheimer's dementia baseline alert and oriented x 1-2, hypertension, dyslipidemia, hypothyroidism, diabetes mellitus type 2 [id number], iron deficiency anemia, and multiple other comorbid conditions who presented to the emergency department with worsening confusion. On arrival to the ER her vital signs were within normal limits. CT of the head showed no acute intracranial process. Chest x-ray showed no acute p rocess. Left shoulder x-ray showed large bony defect in the humeral head articular area. Pelvic x-ray showed right superior and inferior pubic rami fracture which were subacute and incompletely healed. Initial laboratory analysis was remarkable for white blood cell count of 19.3, hemoglobin 7.4 ( baseline 7.5), sodium 133, potassium 5.4, BUN 62, creatinine 2.93 (baseline 0.9), and calcium 11.8. Troponin was mildly elevated at 0.251. Influenza A/B/COVID-19/RSV testing was negative. Urinalysis was equivocal for possible urinary tract infection. Patient was admitted for altered mentation with infection and type II non-STEMI. Cardiology, nephrology, and orthopedic surgery were consulted. Initially orthopedic surgery recommended conservative measures with sling to the left upper extremity. They also recommended that patient wait and weight-bear as tolerated with walker and assistance due to pubic rami fracture. Patient ultimately was found to have MSSA bacteremia and infectious disease was consulted. She underwent shoulder MRI which demonstrated a loculated fluid collection. Patient subsequently underwent I&D on 01/11/2024. Wound cultures from this again grew Staph aureus. This was determined to be the etiology of her bacteremia. She was transitioned to IV cefazolin. Patient had a PICC line placed. On 01/09/2024 patient developed status epilepticus requiring transfer to the ICU. Patient was treated with IV Ativan and Keppra and status resolved. Neurology was consulted. MRI of the brain showed no acute process and the patient was maintained on Vimpat. She subsequently was downgraded back to our selective care floor. On 01/12 she started having large amounts of coffee- ground emesis. General surgery was consulted and she subsequently underwent EGD on 01/15/2024 which demonstrated LA grade B erosive esophagitis with no stigmata of bleeding. She also underwent tagged red blood cell scan which showed no active GI bleeding. Hemoglobin remained stable. Unfortunately renal function did not improve. Patient was developing worsening acidosis and signs of uremia. Nephrology recommended hemodialysis which was started on 01/17/24. Patient seen and examined at bedside while on dialysis. She reports that she is feeling better today than yesterday. She is having less nausea and is having slight increase in her appetite. She reports that her fatigue is getting better and she is overall feeling improved today. Vital signs reviewed General: Nontoxic, no distress, appears at stated age Cardiovascular: S1S2 reg, no murmur Lungs: Coarse breath sounds bilateral , no accessory muscle use Abdominal: Soft, nontender to palpation, no guarding, Ext: No gross muscle atrophy, 2+ edema bilateral lower extremities, 2+ edema left upper extremity, no contractures, dressing over left shoulder Neuro: CN II-XI grossly intact, no focal neuro deficits Psych: Alert, oriented, appropriate affect Assessment/Plan: Nonoliguric acute kidney injury now requiring hemodialysis Hypokalemia Anion gap metabolic acidosis Hyperchloremia -Lasix 60 mg oral daily -Sodium bicarb 650 mg p.o. daily -Discussed with Dr. Gar. Patient will need permanent dialysis catheter and she is having slow flow in her HD cath. Will discuss with Dr. De Guzman. Start IV iron. -Repeat basic metabolic profile in a.m. Acute GI bleeding secondary to erosive esophagitis Acute on chronic iron deficiency anemia -Status post EGD and tagged red blood cell scan with no definitive source of bleeding -Continue Protonix 40 mg IV push twice daily -Follow CBC -Status post 2 units of packed red blood cells - asorbic acid, darbepoetin 40 mcg subcu q. 7 days - surgery note reviewed: no change in management Left shoulder septic arthritis with resultant M SSA bacteremia status post I&D -Infectious disease note reviewed: Patient with MSSA bacteremia he has been started on dialysis. Monitor white blood cell count closely. Rocephin for 6- week course on discharge. -White blood cell count increasing. Will need to continue to monitor to see if we are losing control of the infection in her shoulder -Cefazolin 1 g IV every 24 hours, patient is day #18 of cephalosporin and based antibiotics. - Ortho signed off. recs: Prescription was placed for a lymphedema compression sleeve for the left upper extremity, this was discussed with case management. Due to the amount of swelling in the extremity from the surgery and current condition we are recommending use of this for the next 6 to 8 weeks. - aaron wrap to left upper extremity -Pulmonary note reviewed: Continue current care Status epilepticus, resolved -Continue with Vimpat 100 mg twice daily -Neurology has signed off. Follow-up with neurologist as outpatient in 1 to 2 weeks. Hypokalemia --Potassium 20 mEq p.o. x 1 Type II NSTEMI, due to acute medical illness HTN HLD -Cardiology signed off signed off -Continue aspirin 81 mg daily and atorvastatin 40 mg daily. -Norvasc 5 mg daily History of Alzheimer's dementia History of Parkinson's disease -Continue carbidopa levodopa 25/100 mg tablets 4 times daily. Right-sided superior and inferior pubic rami fractures, chronic - weight bare as tolerated with walker - ortho signed off Type II non-insulin dependent diabetes mellitus -Continue to hold metformin -sliding scale insulin, monitor for hypoglycemia - A1C 6.1 Hypothyroidism -levothyroxine 100 mcg daily. TSH 1.200 Acute metabolic encephalopathy, resolved Imaging: None new Data Review: Labs from today include CBC and basic metabolic profile which are remarkable for white blood cell count 10.8, hematocrit 23.7, hemoglobin 7.7, CRP 1.3, potassium 3.2 DVT prophylaxis: SCDs Anticipated discharge date: in 3-[address]: [facility] This dictation was prepared using [employer] voice recognition software. Though every attempt is made to correct errors during dictation some may still exist. Objective - Vital Signs Vital signs: Vital Signs Temp 98.0 F 01/19/24 15:22 Pulse 79 01/19/24 15:22 Resp 16 01/19/24 15:22 BP 123/59 01/19/24 15:22 Pulse Ox 99 01/19/24 15:22 FiO2 Intake & Output 01/18/24 01/19/24 01/19/24 18:59 06:59 18:59 Intake Total 400 400 Output Total 9825 622 0241 Balance -700 -970 -648 Weight 48.5 kg 48.5 kg Intake: Oral 0 0 Hemodialysis 400 400 Output: Urine 775 125 Hemodialysis 1100 900 Other: Voiding Method Indwelling Catheter Indwelling Catheter Indwelling Catheter # Voids 0 0 # Bowel Movements 0 1 - Labs CBC & Chem 7: 01/19/24 08:25 01/19/24 08:25 Labs: Abnormal Lab Results - Last 24 Hours (Table) 01/19/24 01/19/24 Range/Units 08:25 08:25 WBC 10.8 H (3.8-10.6) k/uL RBC 2.76 L (3.80-5.40) m/uL Hgb 7.7 L (11.4-16.0) gm/dL Hct 23.7 L (34.0-46.0) % RDW 17.2 H (11.5-15.5) % Neutrophils # 9.6 H (1.3-7.7) k/uL Lymphocytes # 0.8 L (1.0-4.8) k/uL Potassium 3.2 L (3.5-5.1) mmol/L BUN 33 H (7-17) mg/dL Creatinine 3.02 H (0.52-1.04) mg/dL Calcium 6.9 L (8.4-10.2) mg/dL C-Reactive Protein 1.3 H (<1.0) mg/dL
[2024-01-19 20:17] LABS: Glucose,Whole Blood 97 mg/dL (70-110)
[2024-01-19] MEDS: MIRTAZAPINE 15 MG TAB PO SCH (21:47)
[2024-01-20 06:01] LABS: Glucose,Whole Blood 83 mg/dL (70-110)
--- NOTE | 2024-01-20 07:46 | XR ---
EXAMINATION TYPE: XR chest 1V portable DATE OF EXAM: 01/20/2024 Comparison: 01/19/2024 Clinical History: 78-year-old female follow-up CHF Findings: Heart upper limits of normal in size. Ongoing moderate bilateral pleural effusions with bibasilar den sities. Right tip in the region of the mid SVC. Impression: Ongoing moderate bilateral pleural effusions with adjacent atelectasis and/or consolidation.
[2024-01-20] MEDS: polyethylene glycoL 3350 17 GM POWD.PACK PO SCH (09:36)
--- NOTE | 2024-01-20 10:14 | P.PN ---
Subjective Patient is seen in follow-up for acute kidney injury. Started on hemodialysis January 18, 2024. Has right femoral dialysis catheter. Has Rodriguez catheter. Making urine. On oral Lasix. Poor historian. Vital signs are stable. General: Resting in bed. HEENT: Head exam is unremarkable. LUNGS: No audible rhonchi or wheezes. HEART: Rate and Rhythm are regular. ABDOMEN: Nontender. EXTREMITITES: Trace edema. Objective - Vital Signs Vital signs: Vital Signs Temp 97.7 F 01/20/24 04:00 Pulse 72 01/20/24 04:00 Resp 16 01/20/24 04:00 BP 123/57 01/20/24 04:00 Pulse Ox 97 01/20/24 04:00 FiO2 Intake & Output 01/19/24 01/20/24 01/20/24 18:59 06:59 18:59 Intake Total 400 Output Total 1025 Balance -625 Weight 48.5 kg Intake: Oral 0 Hemodialysis 400 Output: Urine 125 Hemodialysis 900 Other: Voiding Method Indwelling Catheter Indwelling Catheter # Voids 0 # Bowel Movements 1 - Labs CBC & Chem 7: 01/19/24 08:25 01/19/24 08:25 Labs: Abnormal Lab Results - Last 24 Hours (Table) 01/19/24 Range/Units 08:25 Potassium 3.2 L (3.5-5.1) mmol/L BUN 33 H (7-17) mg/dL Creatinine 3.02 H (0.52-1.04) mg/dL Calcium 6.9 L (8.4-10.2) mg/dL C-Reactive Protein 1.3 H (<1.0) mg/dL Assessment and Plan Plan: Assessment: 1. Acute kidney injury secondary to ATN secondary to severe sepsis and anemia. Creatinine 0.9 dated December 06, 2023. Creatinine 4.05 today. No hydronephrosis noted on kidney ultrasound/CT. started on hemodialysis January 18, 2024 due to uremia and low urine output. Has right femoral catheter. 2. Severe sepsis secondary to Staph aureus bacteremia and E. coli UTI on antibiotics. Also concern for septic arthritis of left shoulder. S/p I&D of left shoulder January 11, 2024. 3. Metabolic acidosis secondary to acute kidney injury on IV fluids. Status post bicarb drip. Now on oral bicarb. 4. Acute blood loss anemia status post blood transfusion this admission. Hemoglobin 7.7 dated January 19, 2024. On Aranesp. Also received IV DDAVP. 5. Benign hypertension. Stable. 6. Seizure-like activity. Neurology following. Status post LP, CAT scan and EEG. 7. Hypokalemia from poor intake and Lasix. Replaced. 8. Hypocalcemia secondary to acute kidney injury. Corrected calcium near 8 based on albumin of 2.1 from January 08, 2024. 9. Volume overload with third spacing. Plan: Hemodialysis today with 4K bath. Avoid nephrotoxins. Continue to monitor renal function and urine output. Encouraged oral intake. Repeat iron studies. Check phosphorus level. Monitor for renal recovery.
[2024-01-20 11:24] LABS: Glucose,Whole Blood 108 mg/dL (70-110)
--- NOTE | 2024-01-20 13:46 | P.PN ---
Subjective Progress Note Date: 01/20/24 Principal diagnosis: Reason for follow-up is MSSA bacteremia Patient is a 78-year-old female past medical history pertinent for diabetes mellitus hypertension hyperlipidemia dementia and depression brought into the hospital for evaluation of worsening dementia/confusion noticed to have positive UA and did have MSSA bacteremia also abnormality to the left humeral head on the x-ray.Patient is status post Arthrotomy left shoulder/irrigation and debridement/incision and drainage left septic shoulder completed on 01/11/2024. On today's evaluation that is 01/20/2024, patient has been afebrile, patient is breathing comfortably and is currently on 2 L nasal cannula oxygen, patient denies having any significant cough no chest pain shortness of breath, patient denies nausea vomiting or diarrhea and no abdominal pain, has been complaining of some pain to the left shoulder elevated today. No new labs obtained today white count was 10.8 yesterday Objective - Vital Signs Vital signs: Vital Signs Temp 98.5 F 01/20/24 12:00 Pulse 83 01/20/24 12:00 Resp 16 01/20/24 12:00 BP 115/66 01/20/24 12:00 Pulse Ox 97 01/20/24 12:00 FiO2 Intake & Output 01/19/24 01/20/24 01/20/24 18:59 06:59 18:59 Intake Total 400 Output Total 1025 Balance -625 Weight 48.5 kg Intake: Oral 0 Hemodialysis 400 Output: Urine 125 Hemodialysis 900 Other: Voiding Method Indwelling Catheter Indwelling Catheter Indwelling Catheter # Voids 0 # Bowel Movements 1 - Exam GENERAL DESCRIPTION: An elderly female lying in bed in no distress RESPIRATORY SYSTEM: Unlabored breathing , decreased breath sounds at bases HEART: S1 S2 regular rate and rhythm , ABDOMEN: Soft , no tenderness EXTREMITIES: No edema feet - Labs CBC & Chem 7: 01/19/24 08:25 01/19/24 08:25 Assessment and Plan (1) MSSA bacteremia Current Visit: Yes Status: Acute Code(s): R78.81 - BACTEREMIA; B95.61 - METHICILLIN SUSCEP STAPH INFCT CAUSING DIS CLASSD ELSWHR SNOMED Code(s): 195064470 (2) Septic arthritis of shoulder, left Current Visit: Yes Status: Acute Code(s): M00.9 - PYOGENIC ARTHRITIS, UNSPECIFIED SNOMED Code(s): 96012856 Plan: 1-patient with MSSA bacteremia suspected left shoulder septic arthritis which was confirmed on MRI and patient is status post arthrotomy left shoulde r/irrigation and debridement/incision and drainage left septic shoulder completed on 01/11/2024, cultures currently growing MSSA 2patient is afebrile patient white count is trending down as of yesterday repeat blood culture negative 3patient continue with the cefazolin while inpatient and continue with supportive care Dictation was produced using [employer] dictation software. please excuse any gram matical, word or spelling errors. Time with Patient: Less than 30
[2024-01-20] MEDS: fentaNYL (PF) 50 MCG/ML 2 ML AMP IVP ONE (13:54)
[2024-01-20] MEDS: LIDOCAINE 1% INJ 10MG/ML (20 ML MDV) SQ ONE ×2 (13:54→13:59)
[2024-01-20] MEDS: SODIUM CHLORIDE 0.9% 250 ML IV ONE (13:56)
--- NOTE | 2024-01-20 13:59 | P.PN ---
Subjective Progress Note Date: 01/20/24 Principal diagnosis: Acute septic arthritis and MSSA bacteremia 8-year-old female patient got transferred to the intensive care unit because of ongoing seizure activity and concerns for status epilepticus. The patient was hospitalized few days back with altered mentation and confusion. She apparently has history of dementia possible evidence status of his dementia and she has some baseline confusion. It was noted that her confusion was progressively getting worse and she also had diminished appetite also. In the emergency department, the patient was hemodynamically stable. Initial CAT scan of the brain was negative for any acute intracranial process and the patient had chronic appearing patchy periventricular white matter ischemic changes and atrophy. Chest x-ray was normal. X-ray of the left shoulder was done and the patient showed a large bony defect in the left humeral head articular space and the shoulder was quite swollen. This was suspected to be related to a traumatic injury. Pelvic x-ray showed also superior inferior pubic rami fracture on the right and subacute incomplete healed fractures and the superior pubic ramus was displaced by around 9 mm. Blood work showed leukocytosis with a white cell count of 19.3 with a hemoglobin of 7.4 and she has chronic baseline anemia. The patient also had a sodium level of 133 with a potassium level 5.4 and a chloride of 97 with a BUN of 63 and a creatinine of 2.9. Calcium was also elevated at 11.8. No significant abnormalities in liver function test. The viral screen was negative. UA was suggestive of an underlying infection and UTI was suspected. The patient also had some troponin leak. As such, the patient was admitted to the hospital for further workup and treatment. She was seen by n ephrology and the patient demonstrated progressive worsening in renal function and the creatinine delfina from 2.9 up to 4.05 and this morning is at 3.96. The white cell count dropped down to 9.3. Hemoglobin has been stable at 8.4 from today. The urine culture was positive for E. coli and this was an ESBL producing microorganism in the blood culture was also positive for Staph aureus/MSSA and this was identified on 2 separate blood cultures. Infectious disease was consulted and the patient was placed on IV cefazolin. Based on the staphylococcal growth in the blood and the joint swelling in the left shoulder, there is a concern for septic arthritis. MRI of the left shoulder was ordered and orthopedic consultation was also requested. The CT scan of the abdomen and pelvis showed no acute intra-abdominal process without any obstructive uropathy or calculus. Subacute fractures of the right inferior and superior rami/pubic rami as well as the right sacrum was noted. This afternoon, the patient was noted to have eye twitching and gaze deviation to the left and seizure-like activity. Subsequently, in the morning, the patient continued to have left gaze deviation with eye twitching and seizure- like tonic-clonic seizure activity as reported by the nursing staff that lasted less than a minute. The patient continued to have recurrent seizures following that lasting up to 5 minutes with the left gaze deviation and generalized clonic activity. The patient had been given a total of 2 mg of IV Ativan during the first episode another 2 mg of Ativan during the second episode bringing her up to a total of 4 mg. She was loaded with Keppra 500 mg IV and dose adjustment was done based on the underlying renal failure. Noted the patient does not have any history of seizure activity or seizure disorder. She is currently afebrile. I was asked to move the patient to the intensive care unit for further monitoring. A repeat CAT scan of the brain was done and it showed atrophy with chronic appearing periventricular white matter ischemic changes and the findings were essentially stable. At this point in time, the patient is on 2 L of oxygen by nasal cannula. The patient remains on IV cefazolin. On today's evaluation of 01/10/2024, the patient is being seen for a follow-up. Her neurostatus is improved slightly compared to yesterday and the patient was able to answer some simple commands. No focal neurological deficits. No facial asymmetry. Pupils are equal reactive to light. Lumbar puncture was done yesterday and the patient has only 1 nucleated cell without any significant elevation in the CSF protein. Cultures are still negative. This is essentially negative LP . There is CSF RBC was 17. CSF glucose was 107. No neck stiffness. No further seizure activity and the patient is currently on Vimpat 100 mg IV every 12 hours. MRI of the brain is to be done today. EEG was completed and showed encephalopathy and there was no indication for an acute or ongoing seizure activity. The plan for now is to proceed with an MRI of the brain and the patient is also going to need an MRI of the shoulder with concerns of septic arthritis. Ultrasound Doppler of the left upper extremity was also done today. This was done essentially to rule out DVT and the results are still pending for now. The patient is afebrile. The patient is hemodynamically stable. Pulse ox is 99% on 2 L of oxygen by nasal cannula. Remains on normal saline at rate of 75 cc an hour. ID is on the case. The patient was growing ESBL producing E. coli in the urine however she did not have any urinary symptoms and the repeat urine cultures have been negative. Based on that, no further antibiotic coverage was recommended in that regard. On today's evaluation of 01/11/2024, the patient is being seen for a follow-up. She is alert and communicating at this point in time. She was transferred out of the intensive care unit. The no further seizure activity and the patient remains on Vimpat. Lumbar puncture was negative. No neck stiffness. No focal neurological deficits. The patient remains on IV cefazolin regarding her staphylococcal septicemia. The patient also had a MRI of the brain that showed no acute abnormalities. MRI of the shoulder was quite abnormal and the patient was Considered to have possibility of septic arthritis. The patient had severe osseous and periarticular and surrounding soft tissue edema along with severe bone loss particularly in the articular surface of the head and underlying joints/bursa effusion as well as located fluid in the lateral deltoid shelf was seen measuring 4.3 cm in size and this made the possibility of septic arthritis more concerning. Based on that, the patient was taken to the operating room and the patient underwent a arthrotomy of the left shoulder along with irrigation debridement and incision and drainage of the left septic shoulder. The patient was found to have significant destruction involving the left humeral head. The bone was debrided. There was thickened synovial tissue that was excised. The joint was then copiously irrigated. A deep drain was placed into the glenohumeral joint. The skin was sutured with appropriate dressing was applied and the patient was brought back to the medical floor. Currently she is on 2 L of oxygen nasal cannula with a pulse ox of 92%. The blood work from today shows a WBC count 9.2, hemoglobin 7.3 and a platelet count of 257. BUN is at 49 with a creatinine of 4.06 and a sodium levels at 138. No other significant events overnight. MRI of the brain was nonspecific and showed atrophy and chronic appearing periventricular white matter ischemic changes. On 01/12/2024, the patient is being seen for a follow-up. Patient is doing well. No specific complaints. She underwent an orthopedic intervention which included arthrotomy of the left shoulder and irrigation debridement and incision and drainage of a left septic joint/arthritis. The cultures are still negative for now. No significant pain. Left upper extremity remains slightly swollen. The patient has no altered mentation. No seizure activity. She is calm and comfortable. She has dropped her hemoglobin down to 6.4 and the patient will be receiving unit of packed RBC. She continues to have chronic kidney disease with a BUN of 46 and a creatinine of 4.05 and her renal function remained stable. Sodium level is 138, bicarb is 19 And anion gap is at 7. The patient remains on IV cefazolin for now. The patient is also on oxygen at 2 L and she was transitioned to room air oxygen. Her pulse ox remains around 97%. No respiratory distress. No focal neurological deficits. On today's evaluation of 01/13/2024, the patient is being seen for a follow-up. The patient has no specific complaints. The left shoulder was debrided and the Gram stain and culture still negative and the patient remains on IV cefazolin. Renal function remained stable with a BUN of 45 with a creatinine of 4.1. No seizure activity. Hemodynamically stable. Remains on oxygen at 2 L/min nasal cannula with a pulse ox of 96%. White cell count of 8.5 with a hemoglobin of 8.1. No other new complaints otherwise for now. Resting comfortably in bed. Nephrology on the case regarding care acute on chronic kidney disease. ID is on the case. Orthopedic surgery is on the case. Neuro is on the case. The patient is currently on Vimpat. She has generalized global weakness yet no focal neurological deficit and no seizure activity. Noted the edema. No encephalopathy. On today's evaluation of 01/14/2024, the patient is resting comfortably in bed. No specific complaints. She was seen by general surgery regarding possibility of hematemesis during the current admission. Note that the patient's hemoglobin dropped down to as low as 6.4 and currently is up to 7.9. The plan is to do EGD at a later stage. The patient remains on room air oxygen with a pulse ox of 91%. No respiratory difficulties. No altered mentation. No seizure activity. She remains on IV cefazolin. Shoulder wound is showing presumptive Staph aureus, awaiting final cultures and sensitivities. Patient is seen today January 15, 2024 in follow-up on the selective care unit. She is currently sitting up in a chair. Awake and alert in no acute distress. No further seizure activity. She is still having ongoing issues with nausea and vomiting. She is maintaining O2 saturations in the 90s on 2 L/min per nasal cannula. Afebrile. Hemodynamically stable. Left shoulder wound is positive for methicillin sensitive Staphylococcus aureus. She remains on cefazolin. Patient was reevaluated today on 01/16/2024, patient continues to have intermittent episodes of nausea and vomiting, and coffee-ground emesis, seen by surgery, underwent EGD. Patient continues to have intermittent episodes of hematemesis, her EGD showed hiatal hernia and esophagitis. Patient is being closely followed by surgery on consultation. Surgery is considering tagged RBC study, also considering small bowel capsule endoscopy to rule out small bowel bleeding. Meantime hemoglobin is being monitored, and the patient is on IV Protonix. Pulmonary zavala, patient does not have a major issue, infection zavala, patient is being followed by infectious disease for her septic arthritis. And for her MSSA bacteremia hemoglobin today is 8.1 basic metabolic profile is normal, renal profile is worsening with creatinine 4.15 today, steadily getting worse since admission patient is now being considered for hemodialysis. Reevaluate today on 01/17/2024, patient continues to have recurrent episodes of hematemesis and coffee-ground emesis. EGD showed evidence of hiatal hernia and esophagitis. This is being addressed by surgery on the case. Patient is also being considered for hemodialysis as per nephrology, continues to have worsening renal profile. I did talk to her [id number] and she will in turn discussed her condition with her , it seems like the patient has multiple comorbidities, and overall prognosis is definitely guarded, patient is mostly bedbound, and may not be inappropriate to consider comfort care measures on this patient Reevaluate today on 01/18/2024, patient underwent her first hemodialysis today, she is feeling better, breathing easier, and no further episodes of emesis. Patient on 2 L nasal cannula with O2 sats of 99%, her last chest x-ray question pneumonia/airspace disease and pleural effusions, follow-up chest x-ray is pending and this will be done tomorrow WBC count is 15.2 hemoglobin 8.3 basic metabolic profile is normal BUN is 30 creatinine 2.53 Patient was reevaluated today on 01/19/2024, patient is receiving hemodialysis this morning, she seems to be doing better, her mentation seems to be slightly improving, no further episodes of nausea vomiting or emesis. Chest x-ray continues to show bibasilar infiltrates and atelectasis and possibly some effusion however clinically the patient is doing better than what is noted on the chest x-ray. Patient will have about 500 cc of fluid removed with dialysis today WBC count is 10.8 hemoglobin 7.7 basic metabolic profile is normal BUN is 33 creatinine 3.02 Patient was reevaluated today on 01/20/2024, patient is doing well today, remains on 2 L nasal cannula, very comfortable, not in any distress. Hardly any pulmonary symptoms no cough no wheezing no shortness of breath, her clinical findings do not correlate with her pulmonary findings on chest x-ray. Patient has moderate pleural effusions with consolidation and atelectasis, not improving and spite of hemodialysis, may actually consider thoracentesis if no improvement in the next 24 hours, however will recommend ultrasound in a.m. prior to thoracentesis Objective - Vital Signs Vital signs: Vital Signs Temp 98.5 F 01/20/24 12:00 Pulse 83 01/20/24 12:00 Resp 16 01/20/24 12:00 BP 115/66 01/20/24 12:00 Pulse Ox 97 01/20/24 12:00 FiO2 Intake & Output 01/19/24 01/20/24 01/20/24 18:59 06:59 18:59 Intake Total 400 Output Total 1025 Balance -625 Weight 48.5 kg Intake: Oral 0 Hemodialysis 400 Output: Urine 125 Hemodialysis 900 Other: Voiding Method Indwelling Catheter Indwelling Catheter Indwelling Catheter # Voids 0 # Bowel Movements 1 - Exam General: This is a 78-year-old female, patient is becoming more verbal, and much better today compared to the last few days. Derm: Skin warm and dry, normal coloration for ethnicity. Head: Atraumatic, normocephalic and symmetric. Eyes: no lid lag, and anicteric sclera, EOMI Mouth: no lip lesions, mucus membranes moist Cardiovascular: Normal S1-S2, no S3 gallop, 2/6 systolic murmur throughout the precordium. Lungs: Minich breath sounds at the bases bilaterally. Abdominal: soft, nontender to palpation, no guarding, no appreciable organomegaly Ext: Left upper extremity in a sling, left arm edema, along with postsurgical changes in the left upper extremity Neuro: Alert. Able to move her arms and legs without any limitation. Generalized profound weakness in all 4 extremities. - Labs CBC & Chem 7: 01/19/24 08:25 01/19/24 08:25 Assessment and Plan Assessment: Impression: Hematemesis, upper GI bleeding, resolved Septic arthritis of left shoulder with subdeltoid abscess MSSA bacteremia Seizure disorder and new onset seizure Acute kidney injury, patient is receiving hemodialysis today. Alzheimer's dementia Benign essential hypertension Hypothyroidism Dyslipidemia Iron deficiency anemia Recurrent urinary tract infections History of Parkinson's disease History of dementia according to her Bilateral pleural effusions Recommendation: Percent of the chest and consider thoracentesis patient has bilateral pleural effusions on chest x-ray Continue hemodialysis Continue present supportive care measures Continue cefazolin Continue seizure meds Continue Protonix Will continue to Time with Patient: Less than 30
[2024-01-20] MEDS: HEPARIN SODIUM 1,000 UN/ML (10ML VL) MISCELLANE ONE (14:05)
--- NOTE | 2024-01-20 14:39 | P.PN ---
Subjective Progress Note Date: 01/20/24 (delayed charting seen at 1030) Patient is a 78-year-old female with Alzheimer's dementia baseline alert and oriented x 1-2, hypertension, dyslipidemia, hypothyroidism, diabetes mellitus type 2 [id number], iron deficiency anemia, and multiple other comorbid conditions who presented to the emergency department with worsening confusion. On arrival to the ER her vital signs were within normal limits. CT of the head showed no acute intracranial process. Chest x-ray showed no acute p rocess. Left shoulder x-ray showed large bony defect in the humeral head articular area. Pelvic x-ray showed right superior and inferior pubic rami fracture which were subacute and incompletely healed. Initial laboratory analysis was remarkable for white blood cell count of 19.3, hemoglobin 7.4 ( baseline 7.5), sodium 133, potassium 5.4, BUN 62, creatinine 2.93 (baseline 0.9), and calcium 11.8. Troponin was mildly elevated at 0.251. Influenza A/B/COVID-19/RSV testing was negative. Urinalysis was equivocal for possible urinary tract infection. Patient was admitted for altered mentation with infection and type II non-STEMI. Cardiology, nephrology, and orthopedic surgery were consulted. Initially orthopedic surgery recommended conservative measures with sling to the left upper extremity. They also recommended that patient wait and weight-bear as tolerated with walker and assistance due to pubic rami fracture. Patient ultimately was found to have MSSA bacteremia and infectious disease was consulted. She underwent shoulder MRI which demonstrated a loculated fluid collection. Patient subsequently underwent I&D on 01/11/2024. Wound cultures from this again grew Staph aureus. This was determined to be the etiology of her bacteremia. She was transitioned to IV cefazolin. Patient had a PICC line placed. On 01/09/2024 patient developed status epilepticus requiring transfer to the ICU. Patient was treated with IV Ativan and Keppra and status resolved. Neurology was consulted. MRI of the brain showed no acute process and the patient was maintained on Vimpat. She subsequently was downgraded back to our selective care floor. On 01/12 she started having large amounts of coffee- ground emesis. General surgery was consulted and she subsequently underwent EGD on 01/15/2024 which demonstrated LA grade B erosive esophagitis with no stigmata of bleeding. She also underwent tagged red blood cell scan which showed no active GI bleeding. Hemoglobin remained stable. Unfortunately renal function did not improve. Patient was developing worsening acidosis and signs of uremia. Nephrology recommended hemodialysis which was started on 01/17/24. Patient seen and examined at bedside. We had a joni discussion that she has not been having sufficient amounts of oral intake. She is agreeable to trying toast and then tomato soup. We discussed that she continues to have poor oral intake she will need a nasogastric feeding tube. Vital signs reviewed General: Nontoxic, no distress, appears at stated age Cardiovascular: S1S2 reg, no murmur Lungs: Coarse breath sounds bilateral , no accessory muscle use Abdominal: Soft, nontender to palpation, no guarding, Ext: No gross muscle atrophy, 2+ edema bilateral lower extremities, 2+ edema left upper extremity, no contractures, dressing over left shoulder Neuro: CN II-XI grossly intact, no focal neuro deficits Psych: Alert, oriented, appropriate affect Assessment/Plan: Nonoliguric acute kidney injury now requiring hemodialysis Hypokalemia Anion gap metabolic acidosis Hyperchloremia -Lasix 60 mg oral daily -Sodium bicarb 650 mg p.o. daily -Case discussed with Dr. De Guzman. He will proceed with permanent hemodialysis catheter today -Nephrology note reviewed: Repeat iron studies. Acute GI bleeding secondary to erosive esophagitis Acute on chronic iron deficiency anemia -Status post EGD and tagged red blood cell scan with no definitive source of bleeding -Continue Protonix 40 mg IV push twice daily -Follow CBC -Status post 2 units of packed red blood cells - asorbic acid, darbepoetin 40 mcg subcu q. 7 days - Await further surgery recs Severe protein calorie malnutrition - continue with supplements. consider tube feed if oral intake remains low - remeron 7.5 mg nightly started on 01/17/24. Left shoulder septic arthritis with resultant M SSA bacteremia status post I&D -Infectious disease recs reviewed: Rocephin for 6-week course on discharge. -White blood cell count increasing. Will need to continue to monitor to see if we are losing control of the infection in her shoulder -Cefazolin 1 g IV every 24 hours, patient is day #19 of cephalosporin and based antibiotics. - Ortho signed off. recs: Prescription was placed for a lymphedema compression sleeve for the left upper extremity, this was discussed with case management. Due to the amount of swelling in the extremity from the surgery and current condition we are recommending use of this for the next 6 to 8 weeks. - aaron wrap to left upper extremity -Pulmonary note reviewed: Check chest x-ray and US Status epilepticus, resolved -Continue with Vimpat 100 mg twice daily -Neurology has signed off. Follow-up with neurologist as outpatient in 1 to 2 weeks. Hypokalemia --Potassium 20 mEq p.o. x 1 Type II NSTEMI, due to acute medical illness HTN HLD -Cardiology signed off signed off -Continue aspirin 81 mg daily and atorvastatin 40 mg daily. -Norvasc 5 mg daily History of Alzheimer's dementia History of Parkinson's disease -Continue carbidopa levodopa 25/100 mg tablets 4 times daily. Right-sided superior and inferior pubic rami fractures, chronic - weight bare as tolerated with walker - ortho signed off Type II non-insulin dependent diabetes mellitus -Continue to hold metformin -sliding scale insulin, monitor for hypoglycemia - A1C 6.1 Hypothyroidism -levothyroxine 100 mcg daily. TSH 1.200 Acute metabolic encephalopathy, resolved Imaging: Chest x-ray reviewed from this morning which demonstrates bilateral pleural effusions. Data Review: Labs from today include CBC and basic metabolic profile which are remarkable for white blood cell count 10.8, hematocrit 23.7, hemoglobin 7.7, CRP 1.3, potassium 3.2 DVT prophylaxis: SCDs Anticipated discharge date: in 3-[address]: [facility] This dictation was prepared using [employer] voice recognition software. Though every attempt is made to correct errors during dictation some may still exist. Objective - Vital Signs Vital signs: Vital Signs Temp 98.5 F 01/20/24 12:00 Pulse 83 01/20/24 12:00 Resp 16 01/20/24 12:00 BP 115/66 01/20/24 12:00 Pulse Ox 97 01/20/24 12:00 FiO2 Intake & Output 01/19/24 01/20/24 01/20/24 18:59 06:59 18:59 Intake Total 400 100 Output Total 1025 Balance -625 100 Weight 48.5 kg Intake: IV 100 Oral 0 Hemodialysis 400 Output: Urine 125 Hemodialysis 900 Other: Voiding Method Indwelling Catheter Indwelling Catheter Indwelling Catheter # Voids 0 # Bowel Movements 1 - Labs CBC & Chem 7: 01/19/24 08:25 01/19/24 08:25
--- NOTE | 2024-01-20 15:35 | XR ---
EXAMINATION TYPE: XR chest 1V portable DATE OF EXAM: 01/20/2024 Comparison: 01/20/2024 earlier today Clinical History: 78-year-old female HEMOCATH PLACEMENT Findings: Right-sided double-lumen hemodialysis catheters with tips at the lower SVC. Heart borderline enlarged . Moderate bilateral pleural effusions persist. Right PICC tip obscured, not clearly seen beyond the upper SVC. No appreciable pneumothorax. Unchanged bony deformity of the articular surface of the left humeral head. Impression: 1. Placement of right-sided double-lumen hemodialysis catheter. Tips at the lower SVC. No appreciable pneumothorax. 2. Ongoing moderate bilateral pleural effusions with adjacent atelectasis and/or consolidation.
[2024-01-20 16:13] LABS: Glucose,Whole Blood 124 mg/dL (70-110)
--- NOTE | 2024-01-20 17:04 | OP ---
OPERATIVE REPORT DATE OF SERVICE : PREOPERATIVE DIAGNOSIS: Acute chronic renal failure. PROCEDURE PERFORMED: 1. Placement of a dialysis catheter ultrasound-guided 19 cm, right jugular approach. 2. Removal of temporary catheter, right femoral approach. 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 Right side of the neck and right groin were prepped and drapes applied in a sterile manner. 1% lidocaine infiltrated in the right neck and chest area. Ultrasound-guided micropuncture introduced into the right jugular vein. Micropuncture guidewire was passed and 4-Vincentian sheath advanced on top of the guidewire. Then, we passed a regular guidewire which was parked in the inferior vena cava. Then tunnel was created. Through the tunnel, we brought 23 cm dialysis catheter. On the top of the guidewire, we placed the dilator, then we placed the sheath. Through the sheath, we introduced the dialysis catheter. Tip of the catheter in superior vena cava atrial junction. Flushed with heparin saline and hep-locked, secured with 3-0 nylon. Then, right groin was prepped and stitches were removed. The dialysis catheter from the right groin was removed. Pressure was held. The patient tolerated the procedure well. The patient will need x-ray of the chest and transferred to recovery room in satisfactory condition. MMODL / IJN: [id number] /
[2024-01-20 20:01] LABS: Glucose,Whole Blood 90 mg/dL (70-110)
--- NOTE | 2024-01-20 21:59 | P.PN ---
Subjective Progress Note Date: 01/20/24 Principal diagnosis: Patient seen and evaluated bedside. Patient has no complaints, no acute events overnight. Objective - Vital Signs Vital signs: Vital Signs Temp 97.9 F 01/20/24 19:56 Pulse 76 01/20/24 19:56 Resp 16 01/20/24 19:56 BP 119/57 01/20/24 19:56 Pulse Ox 98 01/20/24 19:56 FiO2 Intake & Output 01/20/24 01/20/24 01/21/24 06:59 18:59 07:59 Intake Total 150 400 Output Total 1400 Balance 150 -1000 Intake: IV 100 Intake, IV Titration 50 Amount ceFAZolin 2 gm In Sodium 50 Chloride 0.9% 50 ml @ 100 mls/hr IVPB ONCE STA Rx# :[id number] Hemodialysis 400 Output: Hemodialysis 1400 Other: Voiding Method Indwelling Catheter Indwelling Catheter Indwelling Catheter # Bowel Movements 0 gen: nad cv: rrr pul; Non labored breathing abd: soft, non dinsteded,no guarding or rebound tenderness - Labs CBC & Chem 7: 01/19/24 08:25 01/19/24 08:25 Labs: Abnormal Lab Results - Last 24 Hours (Table) 01/20/24 Range/Units 16:11 POC Glucose (mg/dL) 124 H (70-110) mg/dL Assessment and Plan Assessment: 78 yo female w/ GI bleed acute GI bleeding secondary to erosive esophagitis Acute on chronic iron deficiency anemia -Status post EGD and tagged red blood cell scan with no definitive source of bleeding -Continue Protonix 40 mg IV push twice daily -Follow CBC surgery will likely sign off Time with Patient: Greater than 30
[2024-01-21 06:21] LABS: Glucose,Whole Blood 88 mg/dL (70-110)
--- NOTE | 2024-01-21 07:35 | US ---
EXAMINATION TYPE: US chest DATE OF EXAM: 01/20/2024 COMPARISON: Radiograph same day CLINICAL INDICATION: Female, 78 years old with history of Markings for thoracentesis by pulmonary sta ff; TECHNIQUE: Targeted ultrasound of the posterior lower bilateral hemithoraces EXAM MEASUREMENTS: Right Pleural Effusion pocket size: 4.4 cm ? Artifact vs lung lesion at 2.0 cm Right skin surface to fluid distance: 2.5 cm Left Pleural Effusion pocket size: 3.9 cm Left skin surface to fluid distance: 2.7 cm Right side marked for possible thoracentesis outside the dept. Left side marked for possible thoracentesis outside the dept. Pulmonologists are able to review the images in the patient?s EMR. IMPRESSIONS: Moderate bilateral pleural effusions. The singing messenger questions either artifact versus a lung lesion 2 cm deep within the right pleural fluid pocket.
[2024-01-21 07:53] LABS: Anisocytosis Slight; HCT 23.3 % (34.0-46.0); HGB 7.5 gm/dL (11.4-16.0); Hypochromasia Slight; MCH 28.4 pg (25.0-35.0); MCHC 32.4 g/dL (31.0-37.0); MCV 87.7 fL (80.0-100.0); Mean Platelet Volume 7.4; Platelet Count 173 k/uL (150-450); RBC 2.65 m/uL (3.80-5.40); WBC 7.7 k/uL (3.8-10.6)
[2024-01-21 08:04] LABS: African American GFR (CKD) 36 (>60 ml/min/1.73 sqM); Anion Gap 1 mmol/L; Blood Urea Nitrogen 11 mg/dL (7-17); Calcium 6.7 mg/dL (8.4-10.2); Carbon Dioxide 30 mmol/L (22-30); Chloride 103 mmol/L (98-107); Glucose 85 mg/dL (74-99); Magnesium 1.6 mg/dL (1.6-2.3); Non-African American GFR(CKD) 31 (>60 ml/min/1.73 sqM); Phosphorus 2.1 mg/dL (2.5-4.5); Potassium 3.7 mmol/L (3.5-5.1); Sodium 134 mmol/L (137-145)
[2024-01-21 09:02] LABS: % Iron Saturation 43.88 (12.00-45.00)
[2024-01-21] MEDS ORDERED: Phosphorus Replacement Protoco 1 EACH MISC MISCELLANE PRN (10:20)
--- NOTE | 2024-01-21 10:23 | P.PN ---
Subjective Patient is seen in follow-up for acute kidney injury. Started on hemodialysis January 18, 2024. Has right femoral dialysis catheter. Has Rodriguez catheter. Making urine. On oral Lasix. Poor historian. No problems with dialysis yesterday. Oral intake poor. Vital signs are stable. General: Resting in bed. HEENT: Head exam is unremarkable. LUNGS: No audible rhonchi or wheezes. HEART: Rate and Rhythm are regular. ABDOMEN: Nontender. EXTREMITITES: Trace edema. Objective - Vital Signs Vital signs: Vital Signs Temp 97.9 F 01/20/24 19:56 Pulse 76 01/21/24 04:25 Resp 18 01/21/24 04:25 BP 113/57 01/21/24 04:25 Pulse Ox 99 01/21/24 04:25 FiO2 Intake & Output 01/20/24 01/21/24 01/21/24 17:59 06:59 18:59 Intake Total Output Total Balance Intake: IV Intake, IV Titration Amount ceFAZolin 2 gm In Sodium Chloride 0.9% 50 ml @ 100 mls/hr IVPB ONCE STA Rx# :[id number] Hemodialysis Output: Urine Hemodialysis Other: Voiding Method # Bowel Movements - Labs CBC & Chem 7: 01/21/24 07:25 01/21/24 07:25 Labs: Abnormal Lab Results - Last 24 Hours (Table) 01/20/24 01/20/24 01/21/24 Range/Units 12:49 16:11 07:25 RBC 2.65 L (3.80-5.40) m/uL Hgb 7.5 L (11.4-16.0) gm/dL Hct 23.3 L (34.0-46.0) % RDW 17.0 H (11.5-15.5) % Sodium (137-145) mmol/L Creatinine (0.52-1.04) mg/dL POC Glucose (mg/dL) 124 H (70-110) mg/dL Calcium (8.4-10.2) mg/dL Phosphorus (2.5-4.5) mg/dL TIBC 139 L (228-460) UG/DL Transferrin 99.1 L (204.0-354.0) mg/dL 01/21/24 Range/Units 07:25 RBC (3.80-5.40) m/uL Hgb (11.4-16.0) gm/dL Hct (34.0-46.0) % RDW (11.5-15.5) % Sodium 134 L (137-145) mmol/L Creatinine 1.58 H (0.52-1.04) mg/dL POC Glucose (mg/dL) (70-110) mg/dL Calcium 6.7 L (8.4-10.2) mg/dL Phosphorus 2.1 L (2.5-4.5) mg/dL TIBC (228-460) UG/DL Transferrin (204.0-354.0) mg/dL Assessment and Plan Plan: Assessment: 1. Acute kidney injury secondary to ATN secondary to severe sepsis and anemia. Creatinine 0.9 dated December 06, 2023. No hydronephrosis noted on kidney ultrasound/CT. Started on hemodialysis January 18, 2024 due to uremia and low urine output. Permacath placed January 20, 2024. 2. Severe sepsis secondary to Staph aureus bacteremia and E. coli UTI on antibiotics. Also concern for septic arthritis of left shoulder. S/p I&D of left shoulder January 11, 2024. 3. Metabolic acidosis secondary to acute kidney injury on IV fluids. Status post bicarb drip. 4. Acute blood loss anemia status post blood transfusion this admission. Hemoglobin 7.5 today. Iron replete. On Aranesp. Also received IV DDAVP. 5. Benign hypertension. Stable. 6. Seizure-like activity. Neurology following. Status post LP, CAT scan and EEG. 7. Hypokalemia from poor intake and Lasix. Improved. 8. Hypocalcemia secondary to acute kidney injury. Corrected calcium near 8 based on albumin of 2.1 from January 08, 2024. 9. Volume overload with third spacing. 10. Hypophosphatemia from poor intake. Plan: Hemodialysis tomorrow. Stop bicarb. Maintain Lasix. Avoid nephrotoxins. Continue to monitor renal function and urine output. Encouraged oral intake. Replace phosphorus. Monitor for renal recovery. Okay to do trial of void. Hold amlodipine for systolic blood pressure less than 120.
[2024-01-21] MEDS: MAGNESIUM OXIDE 400 MG TAB PO SCH (11:02)
[2024-01-21] MEDS: SODIUM PHOSPHATE 15 MMOL in DEXTROSE 5% IN WATER 250 ML IVPB ONE (11:02)
[2024-01-21 11:36] LABS: Glucose,Whole Blood 215 mg/dL (70-110)
--- NOTE | 2024-01-21 12:08 | P.PN ---
Subjective Progress Note Date: 01/21/24 (delayed charting seen at 1030) Patient is a 78-year-old female with Alzheimer's dementia baseline alert and oriented x 1-2, hypertension, dyslipidemia, hypothyroidism, diabetes mellitus type 2 [id number], iron deficiency anemia, and multiple other comorbid conditions who presented to the emergency department with worsening confusion. On arrival to the ER her vital signs were within normal limits. CT of the head showed no acute intracranial process. Chest x-ray showed no acute p rocess. Left shoulder x-ray showed large bony defect in the humeral head articular area. Pelvic x-ray showed right superior and inferior pubic rami fracture which were subacute and incompletely healed. Initial laboratory analysis was remarkable for white blood cell count of 19.3, hemoglobin 7.4 ( baseline 7.5), sodium 133, potassium 5.4, BUN 62, creatinine 2.93 (baseline 0.9), and calcium 11.8. Troponin was mildly elevated at 0.251. Influenza A/B/COVID-19/RSV testing was negative. Urinalysis was equivocal for possible urinary tract infection. Patient was admitted for altered mentation with infection and type II non-STEMI. Cardiology, nephrology, and orthopedic surgery were consulted. Initially orthopedic surgery recommended conservative measures with sling to the left upper extremity. They also recommended that patient wait and weight-bear as tolerated with walker and assistance due to pubic rami fracture. Patient ultimately was found to have MSSA bacteremia and infectious disease was consulted. She underwent shoulder MRI which demonstrated a loculated fluid collection. Patient subsequently underwent I&D on 01/11/2024. Wound cultures from this again grew Staph aureus. This was determined to be the etiology of her bacteremia. She was transitioned to IV cefazolin. Patient had a PICC line placed. On 01/09/2024 patient developed status epilepticus requiring transfer to the ICU. Patient was treated with IV Ativan and Keppra and status resolved. Neurology was consulted. MRI of the brain showed no acute process and the patient was maintained on Vimpat. She subsequently was downgraded back to our selective care floor. On 01/12 she started having large amounts of coffee- ground emesis. General surgery was consulted and she subsequently underwent EGD on 01/15/2024 which demonstrated LA grade B erosive esophagitis with no stigmata of bleeding. She also underwent tagged red blood cell scan which showed no active GI bleeding. Hemoglobin remained stable. Unfortunately renal function did not improve. Patient was developing worsening acidosis and signs of uremia. Nephrology recommended hemodialysis which was started on 01/17/24. Patient had permanent dialysis catheter placed in right chest wall on 01/19 with removal of temporary catheter. Patient seen and examined at bedside. She is sleepy today and feels tired. No other complaints currently. She was able to eat a little for dinner last night. Her nausea is better. Vital signs reviewed General: Nontoxic, no distress, appears at stated age Cardiovascular: S1S2 reg, no murmur Lungs: Coarse breath sounds bilateral , no accessory muscle use Abdominal: Soft, nontender to palpation, no guarding, Ext: No gross muscle atrophy, 2+ edema bilateral lower extremities, 2+ edema left upper extremity, no contractures, dressing over left shoulder Neuro: CN II-XI grossly intact, no focal neuro deficits Psych: Alert, oriented, appropriate affect Assessment/Plan: Nonoliguric acute kidney injury now requiring hemodialysis Hypokalemia Anion gap metabolic acidosis Hyperchloremia -Lasix 60 mg oral daily -Nephrology note reviewed: Hemodialysis tomorrow, stop bicarb Acute GI bleeding secondary to erosive esophagitis Acute on chronic iron deficiency anemia -Status post EGD and tagged red blood cell scan with no definitive source of bleeding -Continue Protonix 40 mg IV push twice daily -Follow CBC -Status post 2 units of packed red blood cells - asorbic acid, darbepoetin 40 mcg subcu q. 7 days - Await further surgery recs Severe protein calorie malnutrition - continue with supplements. per nursing patient did eat a little yesterday and did want today. - remeron 7.5 mg nightly started on 01/17/24. Left shoulder septic arthritis with resultant M SSA bacteremia status post I&D -Infectious disease recs reviewed: Rocephin for 6-week course on discharge. -White blood cell count increasing. Will need to continue to monitor to see if we are losing control of the infection in her shoulder -Cefazolin 1 g IV every 24 hours, patient is day #20 of cephalosporin and based antibiotics. - Ortho signed off. recs: Prescription was placed for a lymphedema compression sleeve for the left upper extremity, this was discussed with case management. Due to the amount of swelling in the extremity from the surgery and current condition we are recommending use of this for the next 6 to 8 weeks. - aaron wrap to left upper extremity -Pulmonary note reviewed: Check chest x-ray and US Status epilepticus, resolved -Continue with Vimpat 100 mg twice daily -Neurology has signed off. Follow-up with neurologist as outpatient in 1 to 2 weeks. Type II NSTEMI, due to acute medical illness HTN HLD -Cardiology signed off -Continue aspirin 81 mg daily and atorvastatin 40 mg daily. -Norvasc 5 mg daily History of Alzheimer's dementia History of Parkinson's disease -Continue carbidopa levodopa 25/100 mg tablets 4 times daily. Right-sided superior and inferior pubic rami fractures, chronic - weight bare as tolerated with walker - ortho signed off Type II non-insulin dependent diabetes mellitus -Continue to hold metformin -sliding scale insulin, monitor for hypoglycemia - A1C 6.1 Hypothyroidism -levothyroxine 100 mcg daily. TSH 1.200 Acute metabolic encephalopathy, resolved Imaging: None new Data Review: Labs reviewed from today include CBC and basic metabolic profile which are remarkable for hemoglobin 7.5, sodium 134 and creatinine 1.58. DVT prophylaxis: SCDs Anticipated discharge date: in 3-[address]: [facility] This dictation was prepared using [employer] voice recognition software. Though every attempt is made to correct errors during dictation some may still exist. Objective - Vital Signs Vital signs: Vital Signs Temp 97.7 F 01/21/24 08:30 Pulse 80 01/21/24 08:30 Resp 18 01/21/24 08:30 BP 121/57 01/21/24 08:30 Pulse Ox 100 01/21/24 08:30 FiO2 Intake & Output 01/20/24 01/21/24 01/21/24 17:59 06:59 18:59 Intake Total Output Total 100 Balance -100 Intake: IV Intake, IV Titration Amount ceFAZolin 2 gm In Sodium Chloride 0.9% 50 ml @ 100 mls/hr IVPB ONCE STA Rx# :[id number] Hemodialysis Output: Urine 100 Uretheral (Rodriguez) 100 Hemodialysis Other: Voiding Method Indwelling Catheter # Bowel Movements 0 - Labs CBC & Chem 7: 01/21/24 07:25 01/21/24 07:25 Labs: Abnormal Lab Results - Last 24 Hours (Table) 01/20/24 01/20/24 01/21/24 Range/Units 12:49 16:11 07:25 RBC 2.65 L (3.80-5.40) m/uL Hgb 7.5 L (11.4-16.0) gm/dL Hct 23.3 L (34.0-46.0) % RDW 17.0 H (11.5-15.5) % Sodium (137-145) mmol/L Creatinine (0.52-1.04) mg/dL POC Glucose (mg/dL) 124 H (70-110) mg/dL Calcium (8.4-10.2) mg/dL Phosphorus (2.5-4.5) mg/dL TIBC 139 L (228-460) UG/DL Transferrin 99.1 L (204.0-354.0) mg/dL 01/21/24 01/21/24 Range/Units 07:25 11:35 RBC (3.80-5.40) m/uL Hgb (11.4-16.0) gm/dL Hct (34.0-46.0) % RDW (11.5-15.5) % Sodium 134 L (137-145) mmol/L Creatinine 1.58 H (0.52-1.04) mg/dL POC Glucose (mg/dL) 215 H (70-110) mg/dL Calcium 6.7 L (8.4-10.2) mg/dL Phosphorus 2.1 L (2.5-4.5) mg/dL TIBC (228-460) UG/DL Transferrin (204.0-354.0) mg/dL
--- NOTE | 2024-01-21 13:27 | P.PN ---
Subjective Progress Note Date: 01/21/24 Principal diagnosis: GI bleed Patient sitting up in the chair. Denies pain. Tolerating diet. Hemoglobin stable. No rectal bleeding. Objective - Vital Signs Vital signs: Vital Signs Temp 97.7 F 01/21/24 08:30 Pulse 80 01/21/24 08:30 Resp 18 01/21/24 08:30 BP 121/57 01/21/24 08:30 Pulse Ox 100 01/21/24 08:30 FiO2 Intake & Output 01/20/24 01/21/24 01/21/24 17:59 06:59 18:59 Intake Total Output Total 100 Balance -100 Intake: IV Intake, IV Titration Amount ceFAZolin 2 gm In Sodium Chloride 0.9% 50 ml @ 100 mls/hr IVPB ONCE STA Rx# :[id number] Hemodialysis Output: Urine 100 Uretheral (Rodriguez) 100 Hemodialysis Other: Voiding Method Indwelling Catheter # Bowel Movements 0 - Exam Abdomen: Soft, nontender, nondistended - Labs CBC & Chem 7: 01/21/24 07:25 01/21/24 07:25 Labs: Abnormal Lab Results - Last 24 Hours (Table) 01/20/24 01/20/24 01/21/24 Range/Units 12:49 16:11 07:25 RBC 2.65 L (3.80-5.40) m/uL Hgb 7.5 L (11.4-16.0) gm/dL Hct 23.3 L (34.0-46.0) % RDW 17.0 H (11.5-15.5) % Sodium (137-145) mmol/L Creatinine (0.52-1.04) mg/dL POC Glucose (mg/dL) 124 H (70-110) mg/dL Calcium (8.4-10.2) mg/dL Phosphorus (2.5-4.5) mg/dL TIBC 139 L (228-460) UG/DL Transferrin 99.1 L (204.0-354.0) mg/dL 01/21/24 01/21/24 Range/Units 07:25 11:35 RBC (3.80-5.40) m/uL Hgb (11.4-16.0) gm/dL Hct (34.0-46.0) % RDW (11.5-15.5) % Sodium 134 L (137-145) mmol/L Creatinine 1.58 H (0.52-1.04) mg/dL POC Glucose (mg/dL) 215 H (70-110) mg/dL Calcium 6.7 L (8.4-10.2) mg/dL Phosphorus 2.1 L (2.5-4.5) mg/dL TIBC (228-460) UG/DL Transferrin (204.0-354.0) mg/dL Assessment and Plan (1) Anemia Narrative/Plan: Patient doing well today. No bleeding. Hemoglobin is stable. Continue diet as tolerated. Current Visit: Yes Status: Acute Code(s): D64.9 - ANEMIA, UNSPECIFIED SNOMED Code(s): 865546177
--- NOTE | 2024-01-21 13:50 | P.PN ---
Subjective Progress Note Date: 01/21/24 78-year-old female patient got transferred to the intensive care unit because of ongoing seizure activity and concerns for status epilepticus. The patient was hospitalized few days back with altered mentation and confusion. She apparently has history of dementia possible evidence status of his dementia and she has some baseline confusion. It was noted that her confusion was progressively getting worse and she also had diminished appetite also. In the emergency department, the patient was hemodynamically stable. Initial CAT scan of the brain was negative for any acute intracranial process and the patient had chronic appearing patchy periventricular white matter ischemic changes and atrophy. Chest x-ray was normal. X-ray of the left shoulder was done and the patient showed a large bony defect in the left humeral head articular space and the shoulder was quite swollen. This was suspected to be related to a traumatic injury. Pelvic x-ray showed also superior inferior pubic rami fracture on the right and subacute incomplete healed fractures and the superior pubic ramus was displaced by around 9 mm. Blood work showed leukocytosis with a white cell count of 19.3 with a hemoglobin of 7.4 and she has chronic baseline anemia. The patient also had a sodium level of 133 with a potassium level 5.4 and a chloride of 97 with a BUN of 63 and a creatinine of 2.9. Calcium was also elevated at 11.8. No significant abnormalities in liver function test. The viral screen was negative. UA was suggestive of an underlying infection and UTI was suspected. The patient also had some troponin leak. As such, the patient was admitted to the hospital for further workup and treatment. She was seen by nephrology and the patient demonstrated progressive worsening in renal function and the creatinine delfina from 2.9 up to 4.05 and this morning is at 3.96. The white cell count dropped down to 9.3. Hemoglobin has been stable at 8.4 from today. The urine culture was positive for E. coli and this was an ESBL producing microorganism in the blood culture was also positive for Staph aureus/MSSA and this was identified on 2 separate blood cultures. Infectious disease was consulted and the patient was placed on IV cefazolin. Based on the staphylococcal growth in the blood and the joint swelling in the left shoulder, there is a concern for septic arthritis. MRI of the left shoulder was ordered and orthopedic consultation was also requested. The CT scan of the abdomen and pelvis showed no acute intra-abdominal process without any obstructive uropathy or calculus. Subacute fractures of the right inferior and superior rami/pubic rami as well as the right sacrum was noted. This afternoon, the patient was noted to have eye twitching and gaze deviation to the left and seizure-like activity. Subsequently, in the morning, the patient continued to have left gaze deviation with eye twitching and seizure- like tonic-clonic seizure activity as reported by the nursing staff that lasted less than a minute. The patient continued to have recurrent seizures following that lasting up to 5 minutes with the left gaze deviation and generalized clonic activity. The patient had been given a total of 2 mg of IV Ativan during the first episode another 2 mg of Ativan during the second episode bringing her up to a total of 4 mg. She was loaded with Keppra 500 mg IV and dose adjustment wa s done based on the underlying renal failure. Noted the patient does not have any history of seizure activity or seizure disorder. She is currently afebrile. I was asked to move the patient to the intensive care unit for further monitoring. A repeat CAT scan of the brain was done and it showed atrophy with chronic appearing periventricular white matter ischemic changes and the findings were essentially stable. At this point in time, the patient is on 2 L of oxygen by nasal cannula. The patient remains on IV cefazolin. On today's evaluation of 01/10/2024, the patient is being seen for a follow-up. Her neurostatus is improved slightly compared to yesterday and the patient was able to answer some simple commands. No focal neurological deficits. No facial asymmetry. Pupils are equal reactive to light. Lumbar puncture was done yesterday and the patient has only 1 nucleated cell without any significant elevation in the CSF protein. Cultures are still negative. This is essentially negative LP . There is CSF RBC was 17. CSF glucose was 107. No neck stiffness. No further seizure activity and the patient is currently on Vimpat 100 mg IV every 12 hours. MRI of the brain is to be done today. EEG was completed and showed encephalopathy and there was no indication for an acute or ongoing seizure activity. The plan for now is to proceed with an MRI of the brain and the patient is also going to need an MRI of the shoulder with concerns of septic arthritis. Ultrasound Doppler of the left upper extremity was also done today. This was done essentially to rule out DVT and the results are still pending for now. The patient is afebrile. The patient is hemodynamically s table. Pulse ox is 99% on 2 L of oxygen by nasal cannula. Remains on normal saline at rate of 75 cc an hour. ID is on the case. The patient was growing ESBL producing E. coli in the urine however she did not have any urinary symptoms and the repeat urine cultures have been negative. Based on that, no further antibiotic coverage was recommended in that regard. On today's evaluation of 01/11/2024, the patient is being seen for a follow-up. She is alert and communicating at this point in time. She was transferred out of the intensive care unit. The no further seizure activity and the patient remains on Vimpat. Lumbar puncture was negative. No neck stiffness. No focal neurological deficits. The patient remains on IV cefazolin regarding her staphylococcal septicemia. The patient also had a MRI of the brain that showed no acute abnormalities. MRI of the shoulder was quite abnormal and the patient was Considered to have possibility of septic arthritis. The patient had severe osseous and periarticular and surrounding soft tissue edema along with severe bone loss particularly in the articular surface of the head and underlying joints/bursa effusion as well as located fluid in the lateral deltoid shelf was seen measuring 4.3 cm in size and this made the possibility of septic arthritis more concerning. Based on that, the patient was taken to the operating room and the patient underwent a arthrotomy of the left shoulder along with irrigation debridement and incision and drainage of the left septic shoulder. The patient was found to have significant destruction involving the left humeral head. The bone was debrided. There was thickened synovial tissue that was excised. The joint was then copiously irrigated. A deep drain was placed into the glenohumeral joint. The skin was sutured with appropriate dressing was applied and the patient was brought back to the medical floor. Currently she is on 2 L of oxygen nasal cannula with a pulse ox of 92%. The blood work from today shows a WBC count 9.2, hemoglobin 7.3 and a platelet count of 257. BUN is at 49 with a creatinine of 4.06 and a sodium levels at 138. No other significant events overnight. MRI of the brain was nonspecific and showed atrophy and chronic appearing periventricular white matter ischemic changes. On 01/12/2024, the patient is being seen for a follow-up. Patient is doing well. No specific complaints. She underwent an orthopedic intervention which included arthrotomy of the left shoulder and irrigation debridement and incision and drainage of a left septic joint/arthritis. The cultures are still negative for now. No significant pain. Left upper extremity remains slightly swollen. The patient has no altered mentation. No seizure activity. She is calm and comfortable. She has dropped her hemoglobin down to 6.4 and the patient will be receiving unit of packed RBC. She continues to have chronic kidney disease with a BUN of 46 and a creatinine of 4.05 and her renal function remained stable. Sodium level is 138, bicarb is 19 And anion gap is at 7. The patient remains on IV cefazolin for now. The patient is also on oxygen at 2 L and she was transitioned to room air oxygen. Her pulse ox remains around 97%. No respiratory distress. No focal neurological deficits. On today's evaluation of 01/13/2024, the patient is being seen for a follow-up. The patient has no specific complaints. The left shoulder was debrided and the Gram stain and culture still negative and the patient remains on IV cefazolin. Renal function remained stable with a BUN of 45 with a creatinine of 4.1. No seizure activity. Hemodynamically stable. Remains on oxygen at 2 L/min nasal c annula with a pulse ox of 96%. White cell count of 8.5 with a hemoglobin of 8.1. No other new complaints otherwise for now. Resting comfortably in bed. Nephrology on the case regarding care acute on chronic kidney disease. ID is on the case. Orthopedic surgery is on the case. Neuro is on the case. The patient is currently on Vimpat. She has generalized global weakness yet no focal neurological deficit and no seizure activity. Noted the edema. No encephalopathy. On today's evaluation of 01/14/2024, the patient is resting comfortably in bed. No specific complaints. She was seen by general surgery regarding possibility of hematemesis during the current admission. Note that the patient's hemoglobin dropped down to as low as 6.4 and currently is up to 7.9. The plan is to do EGD at a later stage. The patient remains on room air oxygen with a pulse ox of 91%. No respiratory difficulties. No altered mentation. No seizure activity. She remains on IV cefazolin. Shoulder wound is showing presumptive Staph aureus, awaiting final cultures and sensitivities. Patient is seen today January 15, 2024 in follow-up on the selective care unit. She is currently sitting up in a chair. Awake and alert in no acute distress. No further seizure activity. She is still having ongoing issues with nausea and vomiting. She is maintaining O2 saturations in the 90s on 2 L/min per nasal ca nnula. Afebrile. Hemodynamically stable. Left shoulder wound is positive for methicillin sensitive Staphylococcus aureus. She remains on cefazolin. Patient was reevaluated today on 01/16/2024, patient continues to have intermittent episodes of nausea and vomiting, and coffee-ground emesis, seen by surgery, underwent EGD. Patient continues to have intermittent episodes of hematemesis, her EGD showed hiatal hernia and esophagitis. Patient is being closely followed by surgery on consultation. Surgery is considering tagged RBC study, also considering small bowel capsule endoscopy to rule out small bowel bleeding. Meantime hemoglobin is being monitored, and the patient is on IV Protonix. Pulmonary zavala, patient does not have a major issue, infection zavala, patient is being followed by infectious disease for her septic arthritis. And for her MSSA bacteremia hemoglobin today is 8.1 basic metabolic profile is normal, renal profile is worsening with creatinine 4.15 today, steadily getting worse since admission patient is now being considered for hemodialysis. Reevaluate today on 01/17/2024, patient continues to have recurrent episodes of hematemesis and coffee-ground emesis. EGD showed evidence of hiatal hernia and esophagitis. This is being addressed by surgery on the case. Patient is also being considered for hemodialysis as per nephrology, continues to have worsening renal profile. I did talk to her [id number] and she will in turn discussed her condition with her , it seems like the patient has multiple comorbidities, and overall prognosis is definitely guarded, patient is mostly bedbound, and may not be inappropriate to consider comfort care measures on this patient Reevaluate today on 01/18/2024, patient underwent her first hemodialysis today, she is feeling better, breathing easier, and no further episodes of emesis. Patient on 2 L nasal cannula with O2 sats of 99%, her last chest x-ray question pneumonia/airspace disease and pleural effusions, follow-up chest x-ray is pending and this will be done tomorrow WBC count is 15.2 hemoglobin 8.3 basic metabolic profile is normal BUN is 30 creatinine 2.53 Patient was reevaluated today on 01/19/2024, patient is receiving hemodialysis this morning, she seems to be doing better, her mentation seems to be slightly improving, no further episodes of nausea vomiting or emesis. Chest x-ray continues to show bibasilar infiltrates and atelectasis and possibly some effusion however clinically the patient is doing better than what is noted on the chest x-ray. Patient will have about 500 cc of fluid removed with dialysis today WBC count is 10.8 hemoglobin 7.7 basic metabolic profile is normal BUN is 33 creatinine 3.02 Patient was reevaluated today on 01/20/2024, patient is doing well today, remains on 2 L nasal cannula, very comfortable, not in any distress. Hardly any pulmonary symptoms no cough no wheezing no shortness of breath, her clinical findings do not correlate with her pulmonary findings on chest x-ray. Patient has moderate pleural effusions with consolidation and atelectasis, not improving and spite of hemodialysis, may actually consider thoracentesis if no improvement in the next 24 hours, however will recommend ultrasound in a.m. prior to thoracentesis The patient is seen today January 21, 2024 in follow-up on the regular medical floor. She is currently resting comfortably in bed. Awake and alert in no acute distress. He is maintaining O2 saturations up to 100% on 2 L nasal cannula. Afebrile. Hemodynamically stable. Ultrasound of the bilateral pleural effusions revealed minimal pockets measuring 4.4 cm on the right with artifact versus lung and 3.9 cm on the left. No plans for thoracentesis. Receiving hemodialysis tomorrow. She is status post 2 units of packed red blood cells this admission. Current hemoglobin 7.5. Platelets 173. White count 7.7. Sodium 134. Potassium 3.7. Bicarb 30. BUN 11. Creatinine 1.58. He remains on cefazolin. Remains on oral diuretics. Objective - Vital Signs Vital signs: Vital Signs Temp 97.7 F 01/21/24 08:30 Pulse 80 01/21/24 08:30 Resp 18 01/21/24 08:30 BP 121/57 01/21/24 08:30 Pulse Ox 100 01/21/24 08:30 FiO2 Intake & Output 01/20/24 01/21/24 01/21/24 17:59 06:59 18:59 Intake Total Output Total 100 Balance -100 Intake: IV Intake, IV Titration Amount ceFAZolin 2 gm In Sodium Chloride 0.9% 50 ml @ 100 mls/hr IVPB ONCE STA Rx# :[id number] Hemodialysis Output: Urine 100 Uretheral (Rodriguez) 100 Hemodialysis Other: Voiding Method Indwelling Catheter # Bowel Movements 0 - Exam General: This is a pleasant 78-year-old female in no acute distress. Currently on 2 L of oxygen by nasal cannula. Derm: Skin warm and dry, normal coloration for ethnicity. Head: Atraumatic, normocephalic and symmetric. Eyes: no lid lag, and anicteric sclera, EOMI Mouth: no lip lesions, mucus membranes moist Cardiovascular: regular rate and rhythm with normal S1S2, systolic murmur, positive posterior tibial pulses bilaterally, and cap refill < 2 seconds. Lungs: Respirations even, regular, and unlabored on room air. Lungs CTA bilaterally, no rhonchi, no rales, no wheezing, and no accessory muscle usage. Abdominal: soft, nontender to palpation, no guarding, no appreciable organomegaly Ext: Right femoral dialysis catheter in place. Left upper extremity in a sling, left arm edema, along with postsurgical changes in the left upper extremity with a drain and the dressing is dry and not soaked at this point in time. Neuro: Alert. Able to move her arms and legs without any limitation. Generalized profound weakness in all 4 extremities. Pupils are equal reactive to light. No facial asymmetry. Positive cough and gag. Responding to simple commands and answering simple questions. - Labs CBC & Chem 7: 01/21/24 07:25 01/21/24 07:25 Labs: Abnormal Lab Results - Last 24 Hours (Table) 01/20/24 01/20/24 01/21/24 Range/Units 12:49 16:11 07:25 RBC 2.65 L (3.80-5.40) m/uL Hgb 7.5 L (11.4-16.0) gm/dL Hct 23.3 L (34.0-46.0) % RDW 17.0 H (11.5-15.5) % Sodium (137-145) mmol/L Creatinine (0.52-1.04) mg/dL POC Glucose (mg/dL) 124 H (70-110) mg/dL Calcium (8.4-10.2) mg/dL Phosphorus (2.5-4.5) mg/dL TIBC 139 L (228-460) UG/DL Transferrin 99.1 L (204.0-354.0) mg/dL 01/21/24 01/21/24 Range/Units 07:25 11:35 RBC (3.80-5.40) m/uL Hgb (11.4-16.0) gm/dL Hct (34.0-46.0) % RDW (11.5-15.5) % Sodium 134 L (137-145) mmol/L Creatinine 1.58 H (0.52-1.04) mg/dL POC Glucose (mg/dL) 215 H (70-110) mg/dL Calcium 6.7 L (8.4-10.2) mg/dL Phosphorus 2.1 L (2.5-4.5) mg/dL TIBC (228-460) UG/DL Transferrin (204.0-354.0) mg/dL Assessment and Plan Assessment: New onset seizure with status epilepticus controlled on Vimpat and the patient has not had any seizure episodes over the past 24 hours. EEG showing encephalopathy without any ongoing seizure activity. The patient is free of any seizure activity. MRI of the brain showed chronic periventricular white matter disease and atrophy. No acute abnormalities. Mental status is back to normal. MSSA bacteremia/sepsis currently on IV cefazolin, no fevers. Hemodynamically stable. Left glenohumeral joint septic arthritis and subdeltoid abscess. The patient had left shoulder swelling, along with pain.. The patient has left humeral head collapse, consider AVN versus neuropathic arthropathy. Possibility of a septic arthritis cannot be ruled out. Fractures could be related to seizures and the patient is currently wearing a sling and orthopedic surgery is on the case. MRI of the shoulder was indicative of septic arthritis and the patient underwent arthrotomy and debridement and irrigation of the left shoulder along with incision and drainage of the left septic shoulder joint. The cultures are also showing staph aureus. Pelvic fracture related to seizure/fall. Pelvic fracture was present approximately 6 weeks ago, and the patient has superior and inferior pubic rami fracture on the right Acute kidney injury, initiated on hemodialysis January 18, 2024 Hematemesis, awaiting EGD by general surgery. Alzheimer's dementia Hypertension Hyperlipidemia Hypothyroidism Far-[id number] diabetes mellitus Iron deficiency anemia History of recurrent urine tract infection most recent infections with E. coli Abnormal troponins, consider type II myocardial ischemia, echo of the heart shows a preserved LV function with a normal ejection fraction of 55 to 60% History of Parkinson's disease DNR/DNI CODE STATUS Plan: The patient was seen and evaluated Labs and medications reviewed Ultrasound of the chest reviewed No plans for thoracentesis To have hemodialysis tomorrow DNR/DNI CODE STATUS We will continue to follow I have personally seen and examined the patient, performed the documentation and the assessment and plan as written. Number of minutes spent on the visit: 10.
--- NOTE | 2024-01-21 14:35 | P.PN ---
Subjective Progress Note Date: 01/21/24 Principal diagnosis: Reason for follow-up is MSSA bacteremia Patient is a 78-year-old female past medical history pertinent for diabetes mellitus hypertension hyperlipidemia dementia and depression brought into the hospital for evaluation of worsening dementia/confusion noticed to have positive UA and did have MSSA bacteremia also abnormality to the left humeral head on the x-ray.Patient is status post Arthrotomy left shoulder/irrigation and debridement/incision and drainage left septic shoulder completed on 01/11/2024. On today's evaluation that is 01/21/2024,the patient denies any fever or any chills, patient is breathing comfortably on 2 L nasal cannula oxygen, the patient denies chest pain shortness of breath and no significant cough, patient denies abdominal pain, no nausea vomiting or diarrhea. Has been complaining of sore to the back patient white count is 7.7, creatinine 1.58 Objective - Vital Signs Vital signs: Vital Signs Temp 98.2 F 01/21/24 12:10 Pulse 78 01/21/24 12:10 Resp 18 01/21/24 12:10 BP 104/58 01/21/24 12:10 Pulse Ox 97 01/21/24 12:10 FiO2 Intake & Output 01/20/24 01/21/24 01/21/24 17:59 06:59 18:59 Intake Total Output Total 100 Balance -100 Intake: IV Intake, IV Titration Amount ceFAZolin 2 gm In Sodium Chloride 0.9% 50 ml @ 100 mls/hr IVPB ONCE STA Rx# :[id number] Hemodialysis Output: Urine 100 Uretheral (Rodriguez) 100 Hemodialysis Other: Voiding Method Indwelling Catheter # Bowel Movements 0 - Exam GENERAL DESCRIPTION: An elderly female lying in bed in no distress RESPIRATORY SYSTEM: Unlabored breathing , decreased breath sounds at bases HEART: S1 S2 regular rate and rhythm , ABDOMEN: Soft , no tenderness EXTREMITIES: No edema feet - Labs CBC & Chem 7: 01/21/24 07:25 01/21/24 07:25 Labs: Abnormal Lab Results - Last 24 Hours (Table) 01/20/24 01/20/24 01/21/24 Range/Units 12:49 16:11 07:25 RBC 2.65 L (3.80-5.40) m/uL Hgb 7.5 L (11.4-16.0) gm/dL Hct 23.3 L (34.0-46.0) % RDW 17.0 H (11.5-15.5) % Sodium (137-145) mmol/L Creatinine (0.52-1.04) mg/dL POC Glucose (mg/dL) 124 H (70-110) mg/dL Calcium (8.4-10.2) mg/dL Phosphorus (2.5-4.5) mg/dL TIBC 139 L (228-460) UG/DL Transferrin 99.1 L (204.0-354.0) mg/dL 01/21/24 01/21/24 Range/Units 07:25 11:35 RBC (3.80-5.40) m/uL Hgb (11.4-16.0) gm/dL Hct (34.0-46.0) % RDW (11.5-15.5) % Sodium 134 L (137-145) mmol/L Creatinine 1.58 H (0.52-1.04) mg/dL POC Glucose (mg/dL) 215 H (70-110) mg/dL Calcium 6.7 L (8.4-10.2) mg/dL Phosphorus 2.1 L (2.5-4.5) mg/dL TIBC (228-460) UG/DL Transferrin (204.0-354.0) mg/dL Assessment and Plan (1) MSSA bacteremia Current Visit: Yes Status: Acute Code(s): R78.81 - BACTEREMIA; B95.61 - METHICILLIN SUSCEP STAPH INFCT CAUSING DIS CLASSD [facility] SNOMED Code(s): 582236434 (2) Septic arthritis of shoulder, left Current Visit: Yes Status: Acute Code(s): M00.9 - PYOGENIC ARTHRITIS, UNSPECIFIED SNOMED Code(s): 64114660 Plan: 1-patient with MSSA bacteremia suspected left shoulder septic arthritis which was confirmed on MRI and patient is status post arthrotomy left shoulder/irrigation and debridement/incision and drainage left septic shoulder completed on 01/11/2024, cultures currently growing MSSA 2patient is afebrile patient white count normalized, repeat blood culture negative 3patient slowly clinically improving continue the cefazolin will transition to Rocephin on discharge Dictation was produced using [employer] software. please excuse any grammatical, word or spelling errors. Time with Patient: Less than 30
[2024-01-21 16:28] LABS: Glucose,Whole Blood 236 mg/dL (70-110)
[2024-01-21 20:06] LABS: Glucose,Whole Blood 162 mg/dL (70-110)
[2024-01-22 06:16] LABS: Glucose,Whole Blood 133 mg/dL (70-110)
[2024-01-22 08:15] LABS: African American GFR (CKD) 23 (>60 ml/min/1.73 sqM); Anion Gap 5 mmol/L; Blood Urea Nitrogen 22 mg/dL (7-17); Calcium 6.7 mg/dL (8.4-10.2); Carbon Dioxide 27 mmol/L (22-30); Chloride 101 mmol/L (98-107); Glucose 117 mg/dL (74-99); Magnesium 1.7 mg/dL (1.6-2.3); Non-African American GFR(CKD) 20 (>60 ml/min/1.73 sqM); Potassium 4.5 mmol/L (3.5-5.1); Sodium 133 mmol/L (137-145)
--- NOTE | 2024-01-22 11:48 | P.PN ---
Subjective Patient is seen in follow-up for acute kidney injury. Started on hemodialysis January 18, 2024. Rodriguez catheter removed. Minimal urine output. Bladder scan 361 cc this morning. Straight cath will be done. On oral Lasix. Poor historian. Family present at bedside. Vital signs are stable. General: Resting in bed. HEENT: Head exam is unremarkable. LUNGS: No audible rhonchi or wheezes. HEART: Rate and Rhythm are regular. ABDOMEN: Nontender. EXTREMITITES: Trace edema. Objective - Vital Signs Vital signs: Vital Signs Temp 98.4 F 01/22/24 08:22 Pulse 85 01/22/24 08:22 Resp 15 01/22/24 08:22 BP 129/60 01/22/24 08:22 Pulse Ox 100 01/22/24 08:22 FiO2 Intake & Output 01/21/24 01/22/24 01/22/24 18:59 06:59 18:59 Intake Total 300 0 Output Total 100 Balance 200 0 Weight 48.7 kg Intake: Intake, IV Titration 300 Amount Sodium Phosphate 15 mmol 250 In Dextrose 5% in Water 250 ml @ 127.5 mls/hr IVPB ONCE ONE Rx#: [id number] ceFAZolin 1,000 mg In 50 Sodium Chloride 0.9% 50 ml @ 100 mls/hr IVPB Q24H [facility] Rx#:[id number] Oral 0 Output: Urine 100 Uretheral (Rodriguez) 100 Other: Voiding Method Indwelling Catheter # Bowel Movements 0 - Labs CBC & Chem 7: 01/21/24 07:25 01/22/24 07:28 Labs: Abnormal Lab Results - Last 24 Hours (Table) 01/21/24 01/21/24 01/22/24 Range/Units 16:27 20:05 06:13 Sodium (137-145) mmol/L BUN (7-17) mg/dL Creatinine (0.52-1.04) mg/dL Glucose (74-99) mg/dL POC Glucose (mg/dL) 236 H 162 H 133 H (70-110) mg/dL Calcium (8.4-10.2) mg/dL 01/22/24 Range/Units 07:28 Sodium 133 L (137-145) mmol/L BUN 22 H (7-17) mg/dL Creatinine 2.27 H (0.52-1.04) mg/dL Glucose 117 H (74-99) mg/dL POC Glucose (mg/dL) (70-110) mg/dL Calcium 6.7 L (8.4-10.2) mg/dL Assessment and Plan Plan: Assessment: 1. Acute kidney injury secondary to ATN secondary to severe sepsis and anemia. Creatinine 0.9 dated December 06, 2023 and peaked at 4.27 this admission. No hydronephrosis noted on kidney ultrasound/CT. Started on hemodialysis January 18, 2024 due to uremia and low urine output. Permacath placed January 20, 2024. 2. Severe sepsis secondary to Staph aureus bacteremia and E. coli UTI on antibiotics. Also concern for septic arthritis of left shoulder. S/p I&D of left shoulder January 11, 2024. 3. Metabolic acidosis secondary to acute kidney injury on IV fluids. Status post bicarb drip. 4. Acute blood loss anemia status post blood transfusion this admission. Hemoglobin 7.5 today. Iron replete. On Aranesp. Also received IV DDAVP. 5. Benign hypertension. Stable. 6. Seizure-like activity. Neurology following. Status post LP, CAT scan and EEG. 7. Hypokalemia from poor intake and Lasix. Improved. 8. Hypocalcemia secondary to acute kidney injury. Corrected calcium near 8 based on albumin of 2.1 from January 08, 2024. 9. Volume overload with third spacing. 10. Hypophosphatemia from poor intake. Replaced. Plan: Hemodialysis tomorrow. She will be maintained on Monday schedule outpatient. Maintain Lasix. Avoid nephrotoxins. Continue to monitor renal function and urine output. Encouraged oral intake. Monitor for renal recovery outpatient. Straight cath now. If bladder scan show persistently 300 cc of urine, Rodriguez catheter will be reinserted and urology will be consulted. Discussed with nurse. Hold amlodipine for systolic blood pressure less than 120.
[2024-01-22 11:54] LABS: Glucose,Whole Blood 123 mg/dL (70-110)
--- NOTE | 2024-01-22 12:34 | P.DS ---
Providers Date of admission: 01/04/24 11:07 Expected date of discharge: 01/22/24 Attending physician: Venkata Swift MD Consults: 01/04/24 11:05 Consult Physician Routine Consulting Provider: Marcellus Almonte Consult Reason/Comments: Left shoulder landon fragments/impaction injury Do you want consulting provider notified?: Yes 01/04/24 12:50 Consult Physician Routine Consulting Provider: Obdulia Gar Consult Reason/Comments: FROILAN Do you want consulting provider notified?: Yes 01/06/24 07:26 Consult Physician Routine Consulting Provider: Trisha Franco Consult Reason/Comments: + blood cx Do you want consulting provider notified?: Yes 01/09/24 08:32 Consult Physician Routine Consulting Provider: Morro Meyer Consult Reason/Comments: gazing off to L, eyebrow twitching, worsening confusion Do you want consulting provider notified?: Yes 01/09/24 15:55 Consult Physician Routine Consulting Provider: Jj Whiting Consult Reason/Comments: ICU management Do you want consulting provider notified?: Already Contacted 01/13/24 11:27 Consult Physician Routine Consulting Provider: Irene Wheeler Consult Reason/Comments: black emesis Do you want consulting provider notified?: Yes 01/15/24 07:51 Consult Physician Routine Consulting Provider: Irene Wheeler Consult Reason/Comments: black emesis Do you want consulting provider notified?: Already Contacted 01/17/24 05:14 Consult Physician Routine Consulting Provider: Luc De Guzman Consult Reason/Comments: hemodialysis access Do you want consulting provider notified?: Yes Primary care physician: Daniel Lala MD Hospital Course: Discharge Diagnosis: Nonoliguric acute kidney injury now requiring hemodialysis Hypokalemia Anion gap metabolic acidosis Hyperchloremia Acute GI bleeding secondary to erosive esophagitis Acute on chronic iron deficiency anemia Severe protein calorie malnutrition Left shoulder septic arthritis with resultant MSSA bacteremia status post I&D Status epilepticus Type II NSTEMI, due to acute medical illness HTN HLD History of Alzheimer's dementia History of Parkinson's disease Right-sided superior and inferior pubic rami fractures, chronic Type II non-insulin dependent diabetes mellitus Hypothyroidism Acute metabolic encephalopathy Hospital Course: Patient is a 78-year-old female with Alzheimer's dementia baseline alert and oriented x 1-2, hypertension, dyslipidemia, hypothyroidism, diabetes mellitus type 2 [id number], iron deficiency anemia, and multiple other comorbid conditions who presented to the emergency department with worsening c onfusion. On arrival to the ER her vital signs were within normal limits. CT of the head showed no acute intracranial process. Chest x-ray showed no acute process. Left shoulder x-ray showed large bony defect in the humeral head articular area. Pelvic x-ray showed right superior and inferior pubic rami fracture which were subacute and incompletely healed. Initial laboratory analysis was remarkable for white blood cell count of 19.3, hemoglobin 7.4 (baseline 7.5), sodium 133, potassium 5.4, BUN 62, creatinine 2.93 (baseline 0.9), and calcium 11.8. Troponin was mildly elevated at 0.251. Influenza A/B/COVID-19/RSV testing was negative. Urinalysis was equivocal for possible urinary tract infection. Patient was admitted for altered mentation with infection and type II non-STEMI. Cardiology, nephrology, and orthopedic surgery were consulted. Initially orthopedic surgery recommended conservative measures with sling to the left upper extremity. They also recommended that patient wait and weight-bear as tolerated with walker and assistance due to pubic rami fracture. Patient ultimately was found to have MSSA bacteremia and infectious disease was consulted. She underwent shoulder MRI which demonstrated a loculated fluid collection. Patient subsequently underwent I&D on 01/11/2024. Wound cultures from this again grew Staph aureus. This was determined to be the etiology of her bacteremia. She was transitioned to IV cefazolin. Patient had a PICC line placed. On 01/09/2024 patient developed status epilepticus requiring transfer to the ICU. Patient was treated with IV Ativan and Keppra and status resolved. Neurology was consulted. MRI of the brain showed no acute process and the patient was maintained on Vimpat. She subsequently was downgraded back to our selective care floor. On 01/12 she started having large amounts of coffee- ground emesis. General surgery was consulted and she subsequently underwent EGD on 01/15/2024 which demonstrated LA grade B erosive esophagitis with no stigmata of bleeding. She also underwent tagged red blood cell scan which showed no active GI bleeding. Hemoglobin remained stable. Unfortunately renal function did not improve. Patient was developing worsening acidosis and signs of uremia. Nephrology recommended hemodialysis which was started on 01/17/24. Patient had permanent dialysis catheter placed in right chest wall on 01/19 with removal of temporary catheter. She will be maintained on Monday, , Monday schedule. Patient able to void at the time of discharge. Going to nursing facility. Being discharged on 1 month of IV ceftriaxone per ID. Patient seen and examined at bedside. Vital signs reviewed and stable. General: Nontoxic, no distress, appears at stated age Cardiovascular: S1S2 reg, no murmur Lungs: Coarse breath sounds bilateral , no accessory muscle use Abdominal: Soft, nontender to palpation, no guarding, Ext: No gross muscle atrophy, 1+ edema bilateral lower extremities, 1+ edema lef t upper extremity, no contractures, dressing over left shoulder Neuro: CN II-XI grossly intact, no focal neuro deficits Psych: Alert, oriented, appropriate affect A total of 33 minutes of time were spent preparing this complex discharge summary. Patient was discharged on 01/22/24 at 1222. Patient Condition at Discharge: Stable Plan - Discharge Summary Discharge Rx Participant: Yes New Discharge Prescriptions: New Darbepoetin Nikolas [Aranesp] 40 mcg SQ Q7D #7 each polyethylene glycoL 3350 [Miralax] 17 gm PO DAILY packet amLODIPine [Norvasc] 5 mg PO DAILY #0 tab INSULIN ASPART (NovoLOG) [NovoLOG (formulary)] 0 unit SQ ACHS each cefTRIAXone [Rocephin] 2 gm IVPB Q24HR #30 each Ascorbic Acid [Vitamin C] 500 mg PO DAILY tab Furosemide [Lasix] 60 mg PO DAILY tab Magnesium Oxide [Mag-Ox] 400 mg PO DAILY tab Pantoprazole [Protonix] 40 mg PO BID #20 tab Mirtazapine [Remeron] 7.5 mg PO HS tab Lacosamide [Vimpat] 100 mg PO BID tab Continue Cyanocobalamin (Vitamin B-12) [Vitamin B-12] 1,000 mcg PO DAILY Levothyroxine Sodium 100 mcg PO DAILY Acetaminophen Tab [Tylenol] 500 mg PO Q6H PRN PRN Reason: Pain Citalopram Hydrobromide [Citalopram HBr] 20 mg PO DAILY Simvastatin [Zocor] 80 mg PO DAILY Aspirin EC [Ecotrin Low Dose] 81 mg PO DAILY Carbidopa-Levodopa 25-100 mg [Sinemet 25-100 mg] 1 tab PO QID Ferrous Sulfate [Iron (65 MG Elemental)] 325 mg PO DAILY Discontinued metFORMIN HCL [Glucophage] 500 mg PO TID Alendronate Sodium 70 mg PO CALABRESE Furosemide [Lasix] 20 mg PO DAILY ARIPiprazole 5 mg PO DAILY Discharge Medication List Acetaminophen Tab [Tylenol] 500 mg PO Q6H PRN 07/27/22 [History] Aspirin EC [Ecotrin Low Dose] 81 mg PO DAILY 07/27/22 [History] Citalopram Hydrobromide [Citalopram HBr] 20 mg PO DAILY 07/27/22 [History] Cyanocobalamin (Vitamin B-12) [Vitamin B-12] 1,000 mcg PO DAILY 07/27/22 [History] Levothyroxine Sodium 100 mcg PO DAILY 07/27/22 [History] Simvastatin [Zocor] 80 mg PO DAILY 07/27/22 [History] Carbidopa-Levodopa 25-100 mg [Sinemet 25-100 mg] 1 tab PO QID 10/30/23 [History] Ferrous Sulfate [Iron (65 MG Elemental)] 325 mg PO DAILY 01/04/24 [History] Ascorbic Acid [Vitamin C] 500 mg PO DAILY tab 01/22/24 [Rx] Darbepoetin Nikolas [Aranesp] 40 mcg SQ Q7D #7 each 01/22/24 [Rx] Furosemide [Lasix] 60 mg PO DAILY tab 01/22/24 [Rx] INSULIN ASPART (NovoLOG) [NovoLOG (formulary)] 0 unit SQ ACHS each 01/22/24 [Rx] Lacosamide [Vimpat] 100 mg PO BID tab 01/22/24 [Rx] Magnesium Oxide [Mag-Ox] 400 mg PO DAILY tab 01/22/24 [Rx] Mirtazapine [Remeron] 7.5 mg PO HS tab 01/22/24 [Rx] Pantoprazole [Protonix] 40 mg PO BID #20 tab 01/22/24 [Rx] amLODIPine [Norvasc] 5 mg PO DAILY #0 tab 01/22/24 [Rx] cefTRIAXone [Rocephin] 2 gm IVPB Q24HR #30 each 01/22/24 [Rx] polyethylene glycoL 3350 [Miralax] 17 gm PO DAILY packet 01/22/24 [Rx] Follow up Appointment(s)/Referral(s): Aristeo Granados PAC [PHYSICIAN CONCRETE BLOCK MAKER] - 2 Weeks Robin Nunez MD [REFERRING] - 1 Week Dnaiel Lala MD [Primary Care Provider] - 1-2 days Yvan Garcia DO [STAFF PHYSICIAN] - 1 Week Trisha Franco MD [STAFF PHYSICIAN] - 1 Week Ambulatory/Diagnostic Orders: Basic Metabolic Panel [LAB.AMB] Location: None Selected C Reactive Protein [LAB.AMB] Location: None Selected Complete Blood Count w/diff [LAB.AMB] Location: None Selected Erythrocyte Sedimentation Rate [LAB.AMB] Location: None Selected Patient Instructions/Handouts: Seizure/Epilepsy Discharge Instructions & Follow-Up, Dialysis Diet (DC), Abscess (GEN), End Stage Kidney Disease (DC) Activity/Diet/Wound Care/Special Instructions: Orthopedic discharge instructions: 1. Arm sling as needed for the upper extremity 2. Okay to utilize the arm is much as possible 3. Daily dressing changes 4. Keep incision covered and dry 5. Plan [facility], please contact office with any questions Discharge Disposition: TRANSFER TO SNF/ECF
[2024-01-22 12:56] VITALS: RESP 16
--- NOTE | 2024-01-22 13:47 | P.PN ---
Subjective Progress Note Date: 01/22/24 CHIEF COMPLAINT: Coffee-ground emesis HISTORY OF PRESENT ILLNESS: Patient status post EGD results showing diaphragmatic hiatal hernia and erosive esophagitis. Patient reports no further vomiting. Denies any abdominal pain. Reports tolerating diet. She has had no further signs or symptoms of bleeding. Last hemoglobin yesterday at 7.5 PHYSICAL EXAM: VITAL SIGNS: Reviewed. GENERAL: Well-developed in no acute distress. HEENT: No sclera icterus. Extraocular movements grossly intact. Moist buccal mucosa. Head is atraumatic, normocephalic. ABDOMEN: Soft. Nondistended. Nontender. NEUROLOGIC: Alert and oriented. Cranial nerves II through XII grossly intact. ASSESSMENT: 1. Hematemesis resolved. Black emesis might be secondary to patient's iron pill. Iron pill discontinued during this admission. Black emesis resolved 2. Status post EGD with evidence of hiatal hernia and esophagitis 3. Acute blood loss anemia with GI bleed PLAN: -Patient can be discharged from surgical standpoint -Continue PPI -Surgical service will sign off. Please call with any questions or concerns. Physician Seismographer note has been reviewed by physician. Signing provider agrees with the documented findings, assessment, and plan of care. Please see additional documentation below CHIEF COMPLAINT: GI bleed HISTORY OF PRESENT ILLNESS: The patient is a 78-year-old female with history hematemesis. Patient is on hemodialysis. Multiple studies including tagged RBC scan negative for acute bleed. No further hematemesis. ROS: No fevers or chills. No new chest pain. No productive sputum PHYSICAL EXAM: VITAL SIGNS: Reviewed CONSTITUTIONAL: Well developed and in no acute distress. EYES: Conjuctivae without sclera icterus. Extraocular movements grossly intact. HEAD, EARS, NOSE, THROAT: Moist buccal mucosa. Head is atraumatic, normocephalic. Hears conversational speech. No nasal drainage. RESPIRATORY: Non-labored respirations and equal bilateral excursions. CARDIOVASCULAR: Palpable 2+ radial pulses. ABDOMEN: No peritonitis. MUSCULOSKELETAL: No gross deformity of the lower extremities noted. No clubbing. No cyanosis. SKIN: Good skin turgor. Well perfused. NEUROLOGIC: Cranial nerves II through XII grossly intact. No focal or lateralizing signs. PSYCH: Alert to person. CLINICAL LABS: Reviewed. Hemoglobin stable, anemia ASSESSMENT: 1. Acute blood loss anemia with GI bleed 2. Hematemesis 3. Renal failure, on hemodialysis PLAN: 1. Continue Protonix 2. Discontinue medications that contribute to GI bleed 3. May discharge from a surgical standpoint when medically stable Objective - Vital Signs Vital signs: Vital Signs Temp 98.0 F 01/22/24 12:21 Pulse 87 01/22/24 12:21 Resp 16 01/22/24 12:21 BP 104/69 01/22/24 12:21 Pulse Ox 98 01/22/24 12:21 FiO2 Intake & Output 01/21/24 01/22/24 01/22/24 18:59 06:59 18:59 Intake Total 300 0 Output Total 100 220 Balance 200 -220 Weight 48.7 kg Intake: Intake, IV Titration 300 Amount Sodium Phosphate 15 mmol 250 In Dextrose 5% in Water 250 ml @ 127.5 mls/hr IVPB ONCE ONE Rx#: [id number] ceFAZolin 1,000 mg In 50 Sodium Chloride 0.9% 50 ml @ 100 mls/hr IVPB Q24H [facility] Rx#:[id number] Oral 0 Output: Urine 100 220 Uretheral (Rodriguez) 100 Other: Voiding Method Indwelling Catheter # Bowel Movements 0 - Labs CBC & Chem 7: 01/21/24 07:25 01/22/24 07:28 Labs: Abnormal Lab Results - Last 24 Hours (Table) 01/21/24 01/21/24 01/22/24 Range/Units 16:27 20:05 06:13 Sodium (137-145) mmol/L BUN (7-17) mg/dL Creatinine (0.52-1.04) mg/dL Glucose (74-99) mg/dL POC Glucose (mg/dL) 236 H 162 H 133 H (70-110) mg/dL Calcium (8.4-10.2) mg/dL 01/22/24 01/22/24 Range/Units 07:28 11:53 Sodium 133 L (137-145) mmol/L BUN 22 H (7-17) mg/dL Creatinine 2.27 H (0.52-1.04) mg/dL Glucose 117 H (74-99) mg/dL POC Glucose (mg/dL) 123 H (70-110) mg/dL Calcium 6.7 L (8.4-10.2) mg/dL
--- NOTE | 2024-01-22 14:22 | P.PN ---
Subjective Progress Note Date: 01/22/24 Principal diagnosis: Kidney injury, UTI. Patient was reevaluated today on 01/16/2024, patient continues to have intermittent episodes of nausea and vomiting, and coffee-ground emesis, seen by surgery, underwent EGD. Patient continues to have intermittent episodes of hematemesis, her EGD showed hiatal hernia and esophagitis. Patient is being closely followed by surgery on consultation. Surgery is considering tagged RBC study, also considering small bowel capsule endoscopy to rule out small bowel bleeding. Meantime hemoglobin is being monitored, and the patient is on IV Pr otonix. Pulmonary zavala, patient does not have a major issue, infection zavala, patient is being followed by infectious disease for her septic arthritis. And for her MSSA bacteremia hemoglobin today is 8.1 basic metabolic profile is normal, renal profile is worsening with creatinine 4.15 today, steadily getting worse since admission patient is now being considered for hemodialysis. Reevaluate today on 01/17/2024, patient continues to have recurrent episodes of hematemesis and coffee-ground emesis. EGD showed evidence of hiatal hernia and esophagitis. This is being addressed by surgery on the case. Patient is also being considered for hemodialysis as per nephrology, continues to have worsening renal profile. I did talk to her [id number] and she will in turn discussed her condition with her , it seems like the patient has multiple comorbidities, and overall prognosis is definitely guarded, patient is mostly bedbound, and may not be inappropriate to consider comfort care measures on this patient Reevaluate today on 01/18/2024, patient underwent her first hemodialysis today, s he is feeling better, breathing easier, and no further episodes of emesis. Patient on 2 L nasal cannula with O2 sats of 99%, her last chest x-ray question pneumonia/airspace disease and pleural effusions, follow-up chest x-ray is pending and this will be done tomorrow WBC count is 15.2 hemoglobin 8.3 basic metabolic profile is normal BUN is 30 creatinine 2.53 Patient was reevaluated today on 01/19/2024, patient is receiving hemodialysis this morning, she seems to be doing better, her mentation seems to be slightly improving, no further episodes of nausea vomiting or emesis. Chest x-ray contin ues to show bibasilar infiltrates and atelectasis and possibly some effusion however clinically the patient is doing better than what is noted on the chest x-ray. Patient will have about 500 cc of fluid removed with dialysis today WBC count is 10.8 hemoglobin 7.7 basic metabolic profile is normal BUN is 33 creatinine 3.02 Patient was reevaluated today on 01/20/2024, patient is doing well today, remains on 2 L nasal cannula, very comfortable, not in any distress. Hardly any pulmonary symptoms no cough no wheezing no shortness of breath, her clinical findings do not correlate with her pulmonary findings on chest x-ray. Patient has moderate pleural effusions with consolidation and atelectasis, not improving and spite of hemodialysis, may actually consider thoracentesis if no improvement in the next 24 hours, however will recommend ultrasound in a.m. prior to thoracentesis The patient is seen today January 21, 2024 in follow-up on the regular medical floor. She is currently resting comfortably in bed. Awake and alert in no acute distress. He is maintaining O2 saturations up to 100% on 2 L nasal cannula. Afebrile. Hemodynamically stable. Ultrasound of the bilateral pleural effusions revealed minimal pockets measuring 4.4 cm on the right with artifact versus lung and 3.9 cm on the left. No plans for thoracentesis. Receiving hemodialysis tomorrow. She is status post 2 units of packed red blood cells this admission. Current hemoglobin 7.5. Platelets 173. White count 7.7. Sodium 134. Potassium 3.7. Bicarb 30. BUN 11. Creatinine 1.58. He remains on cefazolin. Remains on oral diuretics. Senthil note dated January 22, 2024. The patient is seen today in room 370. The patient is in no acute distress. She is on 2 L by nasal cannula. The patient is not receiving any IV fluids. She was found to have Escherichia coli in the urine, and staph in the blood. She continues on Ancef, as per infectious diseases. No hemodialysis today. It appears she will be a Monday, , Monday hemodialysis patient. Laboratory data includes a sodium 133, potassium 4.5, chlorides 101, CO2 27, anion gap 5, BUN 22, creatinine 2.27. Glucose is 123. Calcium is 6.7, magne sium is 1.7. No recent chest x-ray to report. Objective - Vital Signs Vital signs: Vital Signs Temp 98.0 F 01/22/24 12:21 Pulse 87 01/22/24 12:21 Resp 16 01/22/24 12:21 BP 104/69 01/22/24 12:21 Pulse Ox 98 01/22/24 12:21 FiO2 Intake & Output 01/21/24 01/22/24 01/22/24 18:59 06:59 18:59 Intake Total 300 0 Output Total 100 220 Balance 200 -220 Weight 48.7 kg 48.7 kg Intake: Intake, IV Titration 300 Amount Sodium Phosphate 15 mmol 250 In Dextrose 5% in Water 250 ml @ 127.5 mls/hr IVPB ONCE ONE Rx#: [id number] ceFAZolin 1,000 mg In 50 Sodium Chloride 0.9% 50 ml @ 100 mls/hr IVPB Q24H [facility] Rx#:[id number] Oral 0 Output: Urine 100 220 Uretheral (Rodriguez) 100 Other: Voiding Method Indwelling Catheter # Bowel Movements 0 - Exam No acute distress, oriented 3. Currently on 2 L of oxygen. No respiratory di stress. No audible wheezing. HEENT examination is grossly unremarkable. Mucous membranes are moist. No oral lesions. Neck supple. Full range of motion. No adenopathy thyromegaly or neck vein di stention. Cardiovascular examination reveals regular rhythm rate. S1-S2 normal. No S3 or S4. No discernible murmur noted. Heart rate 87 bpm. Lungs reveal no rhonchi or wheezes. Minimal basilar crackles. 2 L saturation is 98%. Her sounds are equal bilaterally. Abdomen soft bowel sounds are heard. No masses or tenderness. Extremities are intact. No cyanosis clubbing or edema. Skin is without rash or lesion. Neurologic examination is brief but nonfocal. - Labs CBC & Chem 7: 01/21/24 07:25 01/22/24 07:28 Labs: Abnormal Lab Results - Last 24 Hours (Table) 01/21/24 01/21/24 01/22/24 Range/Units 16:27 20:05 06:13 Sodium (137-145) mmol/L BUN (7-17) mg/dL Creatinine (0.52-1.04) mg/dL Glucose (74-99) mg/dL POC Glucose (mg/dL) 236 H 162 H 133 H (70-110) mg/dL Calcium (8.4-10.2) mg/dL 01/22/24 01/22/24 Range/Units 07:28 11:53 Sodium 133 L (137-145) mmol/L BUN 22 H (7-17) mg/dL Creatinine 2.27 H (0.52-1.04) mg/dL Glucose 117 H (74-99) mg/dL POC Glucose (mg/dL) 123 H (70-110) mg/dL Calcium 6.7 L (8.4-10.2) mg/dL Assessment and Plan Assessment: New onset seizure with status epilepticus controlled on Vimpa MSSA bacteremia/sepsis currently on IV cefazolin. Left glenohumeral joint septic arthritis and subdeltoid abscess. The patient had left shoulder swelling, along with pain.. The patient has left humeral head collapse, consider AVN versus neuropathic arthropathy. Possibility of a septic arthritis cannot be ruled out. Fractures could be related to seizures and the patient is currently wearing a sling and orthopedic surgery is on the case. MRI of the shoulder was indicative of septic arthritis and the patient underwent arthrotomy and debridement and irrigation of the left shoulder along with incision and drainage of the left septic shoulder joint. The cultures are also showing staph aureus. Pelvic fracture related to seizure/fall. Acute kidney injury, initiated on hemodialysis January 18, 2024. Hematemesis, awaiting EGD by general surgery. Alzheimer's dementia. Hypertension. Hyperlipidemia. Hypothyroidism. Uwv-brvfrhk-zwhmfohrt diabetes mellitus. Iron deficiency anemia. History of recurrent urine tract infection most recent infections with E. coli. Abnormal troponins, consider type II myocardial ischemia, echo of the heart shows a preserved LV function with a normal ejection fraction of 55 to 60%. History of Parkinson's disease. DNR/DNI CODE STATUS. Plan: Plan dated January 22, 2024. Family members at the bedside. The patient appears to be doing relatively well. She is on 2 L of oxygen. There is no respiratory distress. Saturations are excellent. The patient will have hemodialysis, on Monday, , and Monday. Labs, x-rays, and medications are reviewed. We will continue to follow the patient, make recommendations along the way. There are no plans for thoracentesis. The patient is a DO NOT RESUSCITATE/DO NOT INTUBATE patient. Prognosis is certainly guarded. Time with Patient: Less than 30
[2024-01-22 14:40] VITALS: BMI 21.7
[2024-01-22 16:39] LABS: Glucose,Whole Blood 236 mg/dL (70-110)
[2024-01-22 16:52] VITALS: BP 116/59; PULSE 85; TEMP 98.1
--- NOTE | 2024-01-24 10:52 | CDI ---
Documentation Clarification Form Date: 01/24/2024 10:31:49 AM From: Nona Dutton Phone: Admit Date: 01/04/2024 11:07:00 AM Patient Name: Joan Granados Visit Number: [id number] Discharge Date: 01/22/2024 07:10:00 PM ATTENTION: The Clinical Documentation Specialists (CDI) and [facility] Coding Staff appreciate your assistance in clarifying documentation. Please respond to the clarification below the line at the bottom and electronically sign. The CDI & [facility] Coding staff will review the response and follow-up if needed. Please note: Queries are made part of the Legal Health Record. If you have any questions, please contact the author of this message via ITS. Dr. Obdulia Gar Unspecified CKD is documented per Progress Note 3/1 and following Progress Notes. Additional clarification regarding the stage of CKD is requested. History/Risk Factors: 78yo F, Lt shoulderseptic arthritis, GIB, severe PCM, DMII, HTN, HLD, Alzheimers dementia, MSSA, E coli UTI, NSTEMI II, ATN on CKD, severeanemia, hyperkalemia Patients Historical: baseline creatinine 0.9 Clinical Indicators: BUN: 62 Cr: 2.93 GFR: 10-15 Treatment: patient has been started onHDbecause of her worsening kidney fx also noticed to have slight worsening of the WBC will monitor closely for now continue with the cefazolin and will recheck WBC andinflammatory markers with a.m. lab Nephrology Consults: ATNd/t severeanemia. Currently with indwellingFC. UA shows 2+ protein large blood and WBCs 69. US showsnohydronephrosison the RT kidney. LT kidney could not be visualized due to patient position. HyperkalemiaPOA d/t withAKI, currently improved. Plan: Maintain IV fluids. Continue empiric antibiotics. Check iron profile. Continue to hold metformin and diuretics. Please clarify the stage of the CKD, if known: [ ] CKD Stage 4 [ ] CKD Stage 5 [x ] Other, please specify No CKD_ [ ] Unable to determine Reference: National Kid[employer] Stage 1 eGFR = 90 and kidney damage for =3 months Stage 2 eGFR 60-89 and kidney damage for =3 months Stage 3a eGFR 45-59 and kidney damage for =3 months Stage 3b eGFR 30-44 and kidney damage for =3 months Stage 4 eGFR 15-29 r and kidney damage for =3 months Stage 5 eGFR <15 and kidney damage for =3 months (Template last revised: November 2023) MTDD
--- NOTE | 2024-01-26 14:35 | P.PN ---
Subjective Progress Note Date: 01/22/24 Principal diagnosis: Reason for follow-up is MSSA bacteremia Patient is a 78-year-old female past medical history pertinent for diabetes mellitus hypertension hyperlipidemia dementia and depression brought into the hospital for evaluation of worsening dementia/confusion noticed to have positive UA and did have MSSA bacteremia also abnormality to the left humeral head on the x-ray.Patient is status post Arthrotomy left shoulder/irrigation and debridement/incision and drainage left septic shoulder completed on 01/11/2024. On today's evaluation that is 01/22/2024,the patient remains to be afebrile, patient is breathing comfortably on 2 L nasal cannula oxygen, the patient denies chest pain shortness of breath or cough, patient denies abdominal pain, no nausea vomiting or diarrhea. No new symptoms patient white count is 7.7 as of yesterday, creatinine is 2.27 Objective - Vital Signs Vital signs: Vital Signs Temp 98.0 F 01/22/24 12:21 Pulse 87 01/22/24 12:21 Resp 16 01/22/24 12:21 BP 104/69 01/22/24 12:21 Pulse Ox 98 01/22/24 12:21 FiO2 Intake & Output 01/21/24 01/22/24 01/22/24 18:59 06:59 18:59 Intake Total 300 0 Output Total 100 220 Balance 200 -220 Weight 48.7 kg Intake: Intake, IV Titration 300 Amount Sodium Phosphate 15 mmol 250 In Dextrose 5% in Water 250 ml @ 127.5 mls/hr IVPB ONCE ONE Rx#: [id number] ceFAZolin 1,000 mg In 50 Sodium Chloride 0.9% 50 ml @ 100 mls/hr IVPB Q24H [facility] Rx#:[id number] Oral 0 Output: Urine 100 220 Uretheral (Rodriguez) 100 Other: Voiding Method Indwelling Catheter # Bowel Movements 0 - Exam GENERAL DESCRIPTION: An elderly female lying in bed in no distress RESPIRATORY SYSTEM: Unlabored breathing , decreased breath sounds at bases HEART: S1 S2 regular rate and rhythm , ABDOMEN: Soft , no tenderness EXTREMITIES: No edema feet - Labs CBC & Chem 7: 01/21/24 07:25 01/22/24 07:28 Labs: Abnormal Lab Results - Last 24 Hours (Table) 01/21/24 01/21/24 01/22/24 Range/Units 16:27 20:05 06:13 Sodium (137-145) mmol/L BUN (7-17) mg/dL Creatinine (0.52-1.04) mg/dL Glucose (74-99) mg/dL POC Glucose (mg/dL) 236 H 162 H 133 H (70-110) mg/dL Calcium (8.4-10.2) mg/dL 01/22/24 01/22/24 Range/Units 07:28 11:53 Sodium 133 L (137-145) mmol/L BUN 22 H (7-17) mg/dL Creatinine 2.27 H (0.52-1.04) mg/dL Glucose 117 H (74-99) mg/dL POC Glucose (mg/dL) 123 H (70-110) mg/dL Calcium 6.7 L (8.4-10.2) mg/dL Assessment and Plan (1) MSSA bacteremia Status: Acute Code(s): R78.81 - BACTEREMIA; B95.61 - METHICILLIN SUSCEP STAPH INFCT CAUSING DIS CLASSD [id number] SNOMED Code(s): 863984849 (2) Septic arthritis of shoulder, left Status: Acute Code(s): M00.9 - PYOGENIC ARTHRITIS, UNSPECIFIED SNOMED Code(s): 79320318 Plan: 1-patient with MSSA bacteremia suspected left shoulder septic arthritis which was confirmed on MRI and patient is status post arthrotomy left shoulder/irrigation and debridement/incision and drainage left septic shoulder completed on 01/11/2024, cultures currently growing MSSA 2patient is afebrile patient white count normalized, repeat blood culture negative 3patient has shown clinical improvement she will finish therapy with Rocephin 2 g daily x 4 weeks on discharge and close outpatient follow-up Dictation was produced using [employer] software. please excuse any grammatical, word or spelling errors. Time with Patient: Less than 30
== END 2024-01-22 19:10 | DRG 853 ==
LOC: EC 08:53 → 3SCARD 11:07 → 2SICU 01-09 12:25 → 3SCARD 01-10 17:48
PROVIDERS: ADMIT Internal Medicine; ATTEND Internal Medicine
PROC: 30233N1 Transfusion of Nonautologous Red Blood Cells into Peripheral Vein, Percutaneous Approach (ICD-10-PCS; 2024-01-05)
PROC: 009U3ZX Drainage of Spinal Canal, Percutaneous Approach, Diagnostic (ICD-10-PCS; 2024-01-09)
PROC: 0R9K00Z Drainage of Left Shoulder Joint with Drainage Device, Open Approach (ICD-10-PCS; 2024-01-11)
PROC: 0PBD0ZZ Excision of Left Humeral Head, Open Approach (ICD-10-PCS; 2024-01-11 13:30)
PROC: 0DJ08ZZ Inspection of Upper Intestinal Tract, Via Natural or Artificial Opening Endoscopic (ICD-10-PCS; 2024-01-15)
PROC: 05HY33Z Insertion of Infusion Device into Upper Vein, Percutaneous Approach (ICD-10-PCS; 2024-01-16)
PROC: 06PYX3Z Removal of Infusion Device from Lower Vein, External Approach (ICD-10-PCS; 2024-01-20)
PROC: 02HV33Z Insertion of Infusion Device into Superior Vena Cava, Percutaneous Approach (ICD-10-PCS; 2024-01-20)
PROC: 0JH63XZ Insertion of Tunneled Vascular Access Device into Chest Subcutaneous Tissue and Fascia, Percutaneous Approach (ICD-10-PCS; 2024-01-20 13:31)
PROC: 5A1D70Z Performance of Urinary Filtration, Intermittent, Less than 6 Hours Per Day (ICD-10-PCS; principal; 2024-01-22)
PROC: 06HY33Z Insertion of Infusion Device into Lower Vein, Percutaneous Approach (ICD-10-PCS; 2024-01-22)
DX: A41.01 Sepsis due to Methicillin susceptible Staphylococcus aureus (principal); E43 Unspecified severe protein-calorie malnutrition; G93.41 Metabolic encephalopathy; N17.0 Acute kidney failure with tubular necrosis; I21.A1 Myocardial infarction type 2; R65.21 Severe sepsis with septic shock; K22.11 Ulcer of esophagus with bleeding; F02.83 Dementia in other diseases classified elsewhere, unspecified severity, with mood disturbance; S42.92XA Fracture of left shoulder girdle, part unspecified, initial encounter for closed fracture; E87.1 Hypo-osmolality and hyponatremia; N39.0 Urinary tract infection, site not specified; M00.012 Staphylococcal arthritis, left shoulder; M87.822 Other osteonecrosis, left humerus; E87.20 Acidosis, unspecified; D62 Acute posthemorrhagic anemia; J90 Pleural effusion, not elsewhere classified; J98.11 Atelectasis; Z16.12 Extended spectrum beta lactamase (ESBL) resistance; G40.901 Epilepsy, unspecified, not intractable, with status epilepticus; G30.9 Alzheimer's disease, unspecified; Z66 Do not resuscitate; E83.51 Hypocalcemia; E83.39 Other disorders of phosphorus metabolism; G20.A1 Parkinson's disease without dyskinesia, without mention of fluctuations; E87.8 Other disorders of electrolyte and fluid balance, not elsewhere classified; D50.8 Other iron deficiency anemias; E03.9 Hypothyroidism, unspecified; D53.9 Nutritional anemia, unspecified; I12.9 Hypertensive chronic kidney disease with stage 1 through stage 4 chronic kidney disease, or unspecified chronic kidney disease; E86.0 Dehydration; B96.20 Unspecified Escherichia coli [E. coli] as the cause of diseases classified elsewhere; B95.61 Methicillin susceptible Staphylococcus aureus infection as the cause of diseases classified elsewhere; M75.02 Adhesive capsulitis of left shoulder; E87.6 Hypokalemia; E87.70 Fluid overload, unspecified; K44.9 Diaphragmatic hernia without obstruction or gangrene; E87.5 Hyperkalemia; E78.5 Hyperlipidemia, unspecified; G89.29 Other chronic pain; Z79.84 Long term (current) use of oral hypoglycemic drugs; Z79.890 Hormone replacement therapy; S32.591G Other specified fracture of right pubis, subsequent encounter for fracture with delayed healing; Z87.440 Personal history of urinary (tract) infections; Z79.82 Long term (current) use of aspirin; Z79.899 Other long term (current) drug therapy; Z91.010 Allergy to peanuts; Z91.81 History of falling
CPT/HCPCS: 36410; 36415; 36556; 36558; 36573; 43235; 70450; 70551; 71045; 71046; 72170; 74176; 76604; 76770; 76937; 77001; 78278; 80048; 80053; 80306; 80320; 81001; 82140; 82728; 82945; 83036; 83540; 83550; 83605; 83735; 84100; 84157; 84443; 84484; 85025; 85027; 85610; 85652; 85730; 86140; 86592; 86704; 86706; 86850; 86900; 86901; 86920; 87040; 87070; 87075; 87077; 87086; 87186; 87205; 87340; 87496; 87498; 87529; 87636; 87798; 88108; 89050; 90935; 93005; 93306; 94760; 95816; 96361; 96365; 99211; 99285

== ENCOUNTER 2024-01-30 15:38 | Emergency (ER) | payer MEDICARE ==
[2024-01-30 16:07] LABS: Anisocytosis Slight; Basophils % (A) 1 %; Eosinophils # (A) 0.1 k/uL (0-0.7); Eosinophils % (A) 2 %; HCT 23.5 % (34.0-46.0); HGB 7.4 gm/dL (11.4-16.0); Hypochromasia Slight; Lymphocytes # (A) 1.3 k/uL (1.0-4.8); Lymphocytes % (A) 17 %; MCH 28.8 pg (25.0-35.0); MCHC 31.5 g/dL (31.0-37.0); MCV 91.6 fL (80.0-100.0); Mean Platelet Volume 7.3; Monocytes # (A) 0.4 k/uL (0-1.0); Monocytes % (A) 5 %; Neutrophils # (A) 5.3 k/uL (1.3-7.7); Neutrophils % (A) 74 %; Platelet Count 218 k/uL (150-450); RBC 2.57 m/uL (3.80-5.40); RDW 19.6 % (11.5-15.5); WBC 7.2 k/uL (3.8-10.6)
--- NOTE | 2024-01-30 16:22 | ED ---
Recheck HPI - General Chief Complaint: Recheck/Abnormal Lab/Rx Stated Complaint: Abn Labs Time Seen by Provider: 01/30/24 15:39 Source: EMS, RN notes reviewed, old records reviewed, Caregiver Mode of arrival: EMS Limitations: no limitations - History of Present Illness Initial Comments: This is a 78-year-old female to the ER for evaluation. Patient is a poor historian secondary to clinical condition she herself has no complaints patient missed dialysis today secondary to low hemoglobin and was sent to the emergency room for evaluation regards to low hemoglobin MD Complaint: wound re-check, abnormal lab -: days(s) Initial Visit For: other (0) Returns Today for: Called Because of Abnormal Lab/Test Symptoms Since Prior Visit: no new symptoms Context: called for abnormal lab result Associated Symptoms: none Treatments Prior to Arrival: other (0) - Related Data Home Medications Medication Instructions Recorded Confirmed Acetaminophen Tab [Tylenol] 500 mg PO Q6H PRN 07/27/22 01/04/24 Aspirin EC [Ecotrin Low Dose] 81 mg PO DAILY 07/27/22 01/04/24 Citalopram Hydrobromide 20 mg PO DAILY 07/27/22 01/04/24 [Citalopram HBr] Cyanocobalamin (Vitamin B-12) 1,000 mcg PO DAILY 07/27/22 01/04/24 [Vitamin B-12] Levothyroxine Sodium 100 mcg PO DAILY 07/27/22 01/04/24 Simvastatin [Zocor] 80 mg PO DAILY 07/27/22 01/04/24 Carbidopa-Levodopa 25-100 mg 1 tab PO QID 10/30/23 01/04/24 [Sinemet 25-100 mg] Ferrous Sulfate [Iron (65 MG 325 mg PO DAILY 01/04/24 01/04/24 Elemental)] Previous Rx's Medication Instructions Recorded Ascorbic Acid [Vitamin C] 500 mg PO DAILY tab 01/22/24 Darbepoetin Nikolas [Aranesp] 40 mcg SQ Q7D #7 each 01/22/24 Furosemide [Lasix] 60 mg PO DAILY tab 01/22/24 INSULIN ASPART (NovoLOG) [NovoLOG 0 unit SQ ACHS each 01/22/24 (formulary)] Lacosamide [Vimpat] 100 mg PO BID 3 Days #6 tab 01/22/24 Magnesium Oxide [Mag-Ox] 400 mg PO DAILY tab 01/22/24 Mirtazapine [Remeron] 7.5 mg PO HS tab 01/22/24 Pantoprazole [Protonix] 40 mg PO BID #20 tab 01/22/24 amLODIPine [Norvasc] 5 mg PO DAILY #0 tab 01/22/24 cefTRIAXone [Rocephin] 2 gm IVPB Q24HR #30 each 01/22/24 polyethylene glycoL 3350 [Miralax] 17 gm PO DAILY packet 01/22/24 Allergies Allergy/AdvReac Type Severity Reaction Status Date / Time peanut AdvReac "Watery Verified 01/30/24 15:47 eyes" Review of Systems ROS Statement: Those systems with pertinent positive or pertinent negative responses have been documented in the HPI. ROS Other: All systems not noted in ROS Statement are negative. Past Medical History Past Medical History: Dementia, Diabetes Mellitus, Hyperlipidemia, Hypertension, Thyroid Disorder History of Any Multi-Drug Resistant Organisms: None Reported Date of last positivie culture/infection: 01/04/24 MDRO Source:: Urine Past Surgical History: Unable to Obtain Past Anesthesia/Blood Transfusion Reactions: No Reported Reaction Past Psychological History: Depression Smoking Status: Never smoker Past Alcohol Use History: None Reported Past Drug Use History: None Reported - Past Family History Brother(s) Additional Family Medical History / Comment(s): Unable to obtain due to patient's underlying dementia General Exam Limitations: no limitations General appearance: alert, in no apparent distress Head exam: Present: atraumatic, normocephalic, normal inspection Eye exam: Present: normal appearance, PERRL, EOMI. Absent: scleral icterus, conjunctival injection, periorbital swelling ENT exam: Present: normal exam, mucous membranes moist Neck exam: Present: normal inspection. Absent: tenderness, meningismus, lymphadenopathy Respiratory exam: Present: normal lung sounds bilaterally. Absent: respiratory distress, wheezes, rales, rhonchi, stridor Cardiovascular Exam: Present: regular rate, normal rhythm, normal heart sounds. Absent: systolic murmur, diastolic murmur, rubs, gallop, clicks GI/Abdominal exam: Present: soft, normal bowel sounds. Absent: distended, tenderness, guarding, rebound, rigid Extremities exam: Present: normal inspection, full ROM, normal capillary refill. Absent: tenderness, pedal edema, joint swelling, calf tenderness Back exam: Present: normal inspection Neurological exam: Present: alert, oriented X3, CN II-XII intact Psychiatric exam: Present: normal affect, normal mood Skin exam: Present: warm, dry, intact, normal color. Absent: rash Course Vital Signs 01/30/24 01/30/24 15:43 18:21 Temperature 98.2 F 98.3 F Pulse Rate 88 85 Respiratory 18 16 Rate Blood Pressure 137/63 132/50 O2 Sat by Pulse 94 L 96 Oximetry - Reevaluation(s) Reevaluation #1: Medical records reviewed Reevaluation #2: Patient's symptoms improved Reevaluation #3: Patient informed of results and questions answered Reevaluation #4: Was pt. sent in by a medical professional or institution (TERELL Thacker, [employer], urgent care, hospital, or senior care...) When possible be specific @ -no Did you speak to anyone other than the patient for history (EMS, parent, family, police, friend...)? What history was obtained from this source @ -no Did you review nursing and triage notes (agree or disagree)? Why? @ -agree Are old charts reviewed (outside hosp., previous admission, EMS record, old EKG, old radiological studies, urgent care reports/EKG's, senior care records)? Report findings @ -yes Differential Diagnosis (chest pain, altered mental status, abdominal pain women, abdominal pain men, vaginal bleeding, weakness, fever, dyspnea, syncope, headache, dizziness, GI bleed, back pain, seizure, CVA, palpatations, mental he alth, musculoskeletal)? @ -prior EKG interpreted by me (3pts min.). @ -yes X-rays interpreted by me (1pt min.). @ -no CT interpreted by me (1pt min.). @ -no U/S interpreted by me (1pt. min.). @ -no What testing was considered but not performed or refused? (CT, X-rays, U/S, labs)? Why? @ -none What meds were considered but not given or refused? Why? @ -none Did you discuss the management of the patient with other professionals (professionals i.e. TERELL Thacker, [employer], lab, RT, psych nurse, hospice social worker, test rider, teacher, staff air tactical officer, transplant case manager)? Give summary @ -no Was smoking cessation discussed for >3mins.? @ -no Was critical care preformed (if so, how long)? @ -no Were there social determinants of health that impacted care today? How? (Homelessness, low income, unemployed, alcoholism, drug addiction, transportation, low edu. Level, literacy, decrease access to med. care, detention, r ehab)? @ -none Was there de-escalation of care discussed even if they declined (Discuss DNR or withdrawal of care, Hospice)? DNR status @ -no What co-morbidities impacted this encounter? (DM, HTN, Smoking, COPD, CAD, Cancer, CVA, ARF, Chemo, Hep., AIDS, mental health diagnosis, sleep apnea, morbid obesity)? @ -none Was patient admitted / discharged? Hospital course, mention meds given and route , prescriptions, significant lab abnormalities, going to OR and other pertinent info. @ - 78 female to recheck for evaluation of low hemoglobin. Patient also missed dialysis, patient has normal hemoglobin were not transfused will hemoglobin here in the ER patient be discharged back to facility to continue outpatient dialysis treatment and monitoring of hemoglobin Discharge Undiagnosed new problem with uncertain prognosis? @ -no Drug Therapy requiring intensive monitoring for toxicity (Heparin, Nitro, Insulin, Cardizem)? @ -no Were any procedures done? @ -no Diagnosis/symptom? @ -Weakness, anemia Acute, or Chronic, or Acute on Chronic? @ -Acute Uncomplicated (without systemic symptoms) or Complicated (systemic symptoms)? @ -Complicated Side effects of treatment? @ -no Exacerbation, Progression, or Severe Exacerbation? @ -exacerbation Poses a threat to life or bodily function? How? (Chest pain, USA, [place], pneumonia, PE, COPD, DKA, ARF, appy, cholecystitis, CVA, Diverticulitis, Homicidal, Suicidal, threat to staff... and all critical care pts) @ -yes with extremes of age Medical Decision Making - Medical Decision Making 78 female to recheck for evaluation of low hemoglobin. Patient also missed dialysis, patient has normal hemoglobin were not transfused will hemoglobin here in the ER patient be discharged back to facility to continue outpatient dialysis treatment and monitoring of hemoglobin - Lab Data Result diagrams: 01/30/24 15:48 01/30/24 15:47 Lab Results 01/30/24 01/30/24 Range/Units 15:47 15:48 WBC 7.2 (3.8-10.6) k/uL RBC 2.57 L (3.80-5.40) m/uL Hgb 7.4 L (11.4-16.0) gm/dL Hct 23.5 L (34.0-46.0) % MCV 91.6 (80.0-100.0) fL MCH 28.8 (25.0-35.0) pg MCHC 31.5 (31.0-37.0) g/dL RDW 19.6 H (11.5-15.5) % Plt Count 218 (150-450) k/uL MPV 7.3 Neutrophils % 74 % Lymphocytes % 17 % Monocytes % 5 % Eosinophils % 2 % Basophils % 1 % Neutrophils # 5.3 (1.3-7.7) k/uL Lymphocytes # 1.3 (1.0-4.8) k/uL Monocytes # 0.4 (0-1.0) k/uL Eosinophils # 0.1 (0-0.7) k/uL Basophils # 0.0 (0-0.2) k/uL Hypochromasia Slight Anisocytosis Slight Sodium 137 (137-145) mmol/L Potassium 3.2 L (3.5-5.1) mmol/L Chloride 100 (98-107) mmol/L Carbon Dioxide 31 H (22-30) mmol/L Anion Gap 6 mmol/L BUN 27 H (7-17) mg/dL Creatinine 3.31 H (0.52-1.04) mg/dL Est GFR (CKD-EPI)AfAm 15 (>60 ml/min/1.73 sqM) Est GFR (CKD-EPI)NonAf 13 (>60 ml/min/1.73 sqM) Glucose 206 H (74-99) mg/dL Calcium 7.6 L (8.4-10.2) mg/dL Phosphorus 1.7 L (2.5-4.5) mg/dL Magnesium 2.2 (1.6-2.3) mg/dL Total Bilirubin 0.3 (0.2-1.3) mg/dL AST 33 (14-36) U/L ALT 7 (4-34) U/L Alkaline Phosphatase 151 H (38-126) U/L Total Protein 5.4 L (6.3-8.2) g/dL Albumin 2.2 L (3.5-5.0) g/dL - EKG Data -: EKG Interpreted by Me (EKG is sinus 83 OK 144 QRS 84 QTc 414) Disposition Clinical Impression: Dementia, Anemia Disposition: HOME SELF-CARE Condition: Fair Instructions (If sedation given, give patient instructions): Anemia (ED) Is patient prescribed a controlled substance at d/c from ED?: No Referrals: Antonio Steiner MD [Primary Care Provider] - 1-2 days Time of Disposition: 17:25
[2024-01-30 16:23] LABS: ALT 7 U/L (4-34); AST 33 U/L (14-36); African American GFR (CKD) 15 (>60 ml/min/1.73 sqM); Albumin 2.2 g/dL (3.5-5.0); Alkaline Phosphatase 151 U/L (38-126); Anion Gap 6 mmol/L; Blood Urea Nitrogen 27 mg/dL (7-17); Calcium 7.6 mg/dL (8.4-10.2); Carbon Dioxide 31 mmol/L (22-30); Chloride 100 mmol/L (98-107); Glucose 206 mg/dL (74-99); Magnesium 2.2 mg/dL (1.6-2.3); Non-African American GFR(CKD) 13 (>60 ml/min/1.73 sqM); Phosphorus 1.7 mg/dL (2.5-4.5); Potassium 3.2 mmol/L (3.5-5.1); Sodium 137 mmol/L (137-145); Total Bilirubin 0.3 mg/dL (0.2-1.3); Total Protein 5.4 g/dL (6.3-8.2)
[2024-01-30] MEDS: SODIUM CHLORIDE 0.9% 500 ML 500 ML IV STA (17:04)
[2024-01-30 18:45] VITALS: BP 132/50; PULSE 85; RESP 16; TEMP 98.3
== END 2024-01-30 19:07 | disposition home or self-care (01) ==
LOC: EC 15:38
DX: D64.9 Anemia, unspecified (principal); F03.90 Unspecified dementia, unspecified severity, without behavioral disturbance, psychotic disturbance, mood disturbance, and anxiety; Z91.010 Allergy to peanuts
CPT/HCPCS: 36415; 80053; 83735; 84100; 85025; 93005; 99284

== ENCOUNTER 2024-02-09 14:49 | Observation (INO) | payer MEDICARE ==
--- NOTE | 2024-02-09 14:55 | ED ---
Recheck HPI - General Stated Complaint: Abn Labs Time Seen by Provider: 02/09/24 14:53 Source: RN notes reviewed, old records reviewed Limitations: no limitations - History of Present Illness Initial Comments: This is a 78-year-old female to the ER for evaluation today. Patient was today for evaluation of abnormal lab testing including low hemoglobin. Patient does have history of low hemoglobin and presents for low hemoglobin here in the emergency room. Significant weakness. Travels no sick contacts no other complaints MD Complaint: abnormal lab (lo hgb) Returns Today for: Called Because of Abnormal Lab/Test Context: called for abnormal lab result Associated Symptoms: none Treatments Prior to Arrival: other (0) - Related Data Home Medications Medication Instructions Recorded Confirmed Acetaminophen Tab [Tylenol] 500 mg PO Q6H PRN 07/27/22 02/09/24 Aspirin EC [Ecotrin Low Dose] 81 mg PO DAILY@0800 07/27/22 02/09/24 Levothyroxine Sodium 100 mcg PO MOTUWETHFRSA@0607/27/22 02/09/24 Simvastatin [Zocor] 80 mg PO DAILY@0800 07/27/22 02/09/24 Carbidopa-Levodopa 25-100 mg 1 tab PO QID 10/30/23 02/09/24 [Sinemet 25-100 mg] Ferrous Sulfate [Iron (65 MG 325 mg PO DAILY@0800 01/04/24 02/09/24 Elemental)] Ascorbic Acid [Vitamin C] 500 mg PO DAILY@0800 02/09/24 02/09/24 Calcium Carbonate [Tums] 500 mg PO BID@0800,1700 02/09/24 02/09/24 Citalopram Hydrobromide [CeleXA] 20 mg PO DAILY@0800 02/09/24 02/09/24 Cyanocobalamin [Vitamin B-12] 1,000 mcg PO DAILY@0802/09/24 02/09/24 Furosemide [Lasix] 60 mg PO DAILY@0602/09/24 02/09/24 INSULIN ASPART (NovoLOG) [NovoLOG See Protocol SQ ACHS 02/09/24 02/09/24 (formulary)] Lacosamide 100 mg PO BID@0800,2100 02/09/24 02/09/24 Levothyroxine Sodium [Synthroid] 50 mcg PO CALABRESE@0600 02/09/24 02/09/24 Magnesium Oxide [Mag-Ox] 400 mg PO DAILY@0800 02/09/24 02/09/24 Melatonin 1 mg PO HS 02/09/24 02/09/24 Nephro-Oralia 1mg 1 tab PO DAILY@0800 02/09/24 02/09/24 Nepro 120 ml PO BID@1200,1700 02/09/24 02/09/24 Nepro 120 ml PO SUMOWEFR@0800 02/09/24 02/09/24 Nepro 237 ml PO TUTHSA@0600 02/09/24 02/09/24 Pantoprazole [Protonix] 40 mg PO BID@0800,1700 02/09/24 02/09/24 Potassium Chloride [Klor-Con 10 ER] 10 meq PO DAILY@0800 02/09/24 02/09/24 amLODIPine [Norvasc] 5 mg PO DAILY@0800 02/09/24 02/09/24 bisacodyL [Dulcolax] 10 mg RECTAL DAILY PRN 02/09/24 02/09/24 polyethylene glycoL 3350 [Miralax] 17 gm PO DAILY@0800 02/09/24 02/09/24 Previous Rx's Medication Instructions Recorded Mirtazapine [Remeron] 7.5 mg PO HS tab 01/22/24 cefTRIAXone [Rocephin] 2 gm IVPB Q24HR #30 each 01/22/24 Darbepoetin Nikolas [Aranesp] 60 mcg SQ Q7D each 02/12/24 Ipratropium-Albuterol Nebulize 3 ml INHALATION RT-QID PRN each 02/12/24 [Duoneb 0.5 mg-3 mg/3 ml Soln] Allergies Allergy/AdvReac Type Severity Reaction Status Date / Time peanut AdvReac "Watery Verified 02/09/24 15:25 eyes" Review of Systems ROS Statement: Those systems with pertinent positive or pertinent negative responses have been documented in the HPI. ROS Other: All systems not noted in ROS Statement are negative. Past Medical History Past Medical History: Dementia, Diabetes Mellitus, Hyperlipidemia, Hypertension, Thyroid Disorder History of Any Multi-Drug Resistant Organisms: None Reported Date of last positivie culture/infection: 01/04/24 MDRO Source:: Urine Past Surgical History: Unable to Obtain Past Anesthesia/Blood Transfusion Reactions: No Reported Reaction Past Psychological History: Depression Smoking Status: Never smoker Past Alcohol Use History: None Reported Past Drug Use History: None Reported - Past Family History Brother(s) Additional Family Medical History / Comment(s): Unable to obtain due to patient's underlying dementia General Exam General appearance: alert, in no apparent distress Head exam: Present: atraumatic, normocephalic, normal inspection Eye exam: Present: normal appearance, PERRL, EOMI. Absent: scleral icterus, conjunctival injection, periorbital swelling ENT exam: Present: normal exam, mucous membranes moist Neck exam: Present: normal inspection. Absent: tenderness, meningismus, lymphadenopathy Respiratory exam: Present: normal lung sounds bilaterally. Absent: respiratory distress, wheezes, rales, rhonchi, stridor Cardiovascular Exam: Present: regular rate, normal rhythm, normal heart sounds. Absent: systolic murmur, diastolic murmur, rubs, gallop, clicks GI/Abdominal exam: Present: soft, normal bowel sounds. Absent: distended, tenderness, guarding, rebound, rigid Extremities exam: Present: normal inspection, full ROM, normal capillary refill. Absent: tenderness, pedal edema, joint swelling, calf tenderness Back exam: Present: normal inspection Neurological exam: Present: alert, oriented X3, CN II-XII intact Psychiatric exam: Present: normal affect, normal mood Skin exam: Present: warm, dry, intact, normal color. Absent: rash Course Vital Signs 02/09/24 02/09/24 02/09/24 14:57 15:02 17:02 Temperature 98.9 F Pulse Rate 83 84 86 Respiratory 16 16 16 Rate Blood Pressure 115/55 125/59 125/69 O2 Sat by Pulse 96 95 94 L Oximetry 02/09/24 02/09/24 17:28 19:32 Temperature Pulse Rate 90 Respiratory 20 18 Rate Blood Pressure 152/69 O2 Sat by Pulse 91 L Oximetry - Reevaluation(s) Reevaluation #1: 02/09/24 17:27 Medical records reviewed Reevaluation #2: 02/09/24 17:27 Patient's symptoms unchanged Reevaluation #3: 02/09/24 17:27 Patient informed of results questions answered Reevaluation #4: Was pt. sent in by a medical professional or institution (TERELL Thacker, [employer], urgent care, hospital, or fci...) When possible be specific @ -no Did you speak to anyone other than the patient for history (EMS, parent, family, police, friend...)? What history was obtained from this source @ -no Did you review nursing and triage notes (agree or disagree)? Why? @ -agree Are old charts reviewed (outside hosp., previous admission, EMS record, old EKG, old radiological studies, urgent care reports/EKG's, fci records)? Report findings @ -yes Differential Diagnosis (chest pain, altered mental status, abdominal pain women, abdominal pain men, vaginal bleeding, weakness, fever, dyspnea, syncope, headache, dizziness, GI bleed, back pain, seizure, CVA, palpatations, mental health, musculoskeletal)? @ -prior EKG interpreted by me (3pts min.). @ -no X-rays interpreted by me (1pt min.). @ -no CT interpreted by me (1pt min.). @ -no U/S interpreted by me (1pt. min.). @ -no What testing was considered but not performed or refused? (CT, X-rays, U/S, la bs)? Why? @ -none What meds were considered but not given or refused? Why? @ -none Did you discuss the management of the patient with other professionals (professionals i.e. TERELL Thacker, [employer], lab, RT, psych nurse, aids social worker, patient safety tech, teacher, intelligence officer, shoe caser)? Give summary @ -no Was smoking cessation discussed for >3mins.? @ -no Was critical care preformed (if so, how long)? @ -no Were there social determinants of health that impacted care today? How? (Homelessness, low income, unemployed, alcoholism, drug addiction, transportation, low edu. Level, literacy, decrease access to med. care, intermediate, rehab)? @ -none Was there de-escalation of care discussed even if they declined (Discuss DNR or withdrawal of care, Hospice)? DNR status @ -no What co-morbidities impacted this encounter? (DM, HTN, Smoking, COPD, CAD, Cancer, CVA, ARF, Chemo, Hep., AIDS, mental health diagnosis, sleep apnea, morbid obesity)? @ -none Was patient admitted / discharged? Hospital course, mention meds given and route, prescriptions, significant lab abnormalities, going to OR and other pertinent info. @ - 38 female to ER for severe anemia. Anemia of chronic disease patient will be admitted for transfusion and need for dialysis Admitted Undiagnosed new problem with uncertain prognosis? @ -no Drug Therapy requiring intensive monitoring for toxicity (Heparin, Nitro, Insulin, Cardizem)? @ -no Were any procedures done? @ -no Diagnosis/symptom? @ -Anemia of chronic disease Acute, or Chronic, or Acute on Chronic? @ -Acute Uncomplicated (without systemic symptoms) or Complicated (systemic symptoms)? @ -Complicated Side effects of treatment? @ -no Exacerbation, Progression, or Severe Exacerbation? @ -exacerbation Poses a threat to life or bodily function? How? (Chest pain, USA, [place], pneumonia, PE, COPD, DKA, ARF, appy, cholecystitis, CVA, Diverticulitis, Homicidal, Suicidal, threat to staff... and all critical care pts) @ -yes seems of age Reevaluation #5: Differential Weakness: Hypoglycemia, shock, sepsis, hyponatremia, anemia, infection, NH, ETOH, adverse medicine reaction, overdose, stroke, this is not meant to be an all-inclusive list. - Consultations Consultation #1: Spoke with Dr. Taylor who is aware of this patient Medical Decision Making - Medical Decision Making 38 female to ER for severe anemia. Anemia of chronic disease patient will be ad mitted for transfusion and need for dialysis - Lab Data Result diagrams: 02/12/24 07:19 02/12/24 07:19 Lab Results 02/09/24 02/09/24 02/09/24 Range/Units 16:15 16:15 16:15 WBC 5.8 (3.8-10.6) k/uL RBC 1.88 L (3.80-5.40) m/uL Hgb 5.8 L* D (11.4-16.0) gm/dL Hct 18.0 L* (34.0-46.0) % MCV 95.7 (80.0-100.0) fL MCH 30.6 (25.0-35.0) pg MCHC 32.0 (31.0-37.0) g/dL RDW 18.3 H (11.5-15.5) % Plt Count 291 (150-450) k/uL MPV 8.7 Neutrophils % 72 % Lymphocytes % 17 % Monocytes % 8 % Eosinophils % 1 % Basophils % 0 % Neutrophils # 4.2 (1.3-7.7) k/uL Lymphocytes # 1.0 (1.0-4.8) k/uL Monocytes # 0.5 (0-1.0) k/uL Eosinophils # 0.1 (0-0.7) k/uL Basophils # 0.0 (0-0.2) k/uL Hypochromasia Marked Anisocytosis Slight Macrocytosis Slight PT 10.2 (10.0-12.5) sec INR 0.9 (<1.2) APTT 25.8 (22.0-30.0) sec Sodium 138 (137-145) mmol/L Potassium 3.5 (3.5-5.1) mmol/L Chloride 102 (98-107) mmol/L Carbon Dioxide 30 (22-30) mmol/L Anion Gap 6 mmol/L BUN 17 (7-17) mg/dL Creatinine 2.29 H (0.52-1.04) mg/dL Est GFR (CKD-EPI)AfAm 23 (>60 ml/min/1.73 sqM) Est GFR (CKD-EPI)NonAf 20 (>60 ml/min/1.73 sqM) Glucose 215 H (74-99) mg/dL Calcium 7.5 L (8.4-10.2) mg/dL Total Bilirubin 0.3 (0.2-1.3) mg/dL AST 25 (14-36) U/L ALT 6 (4-34) U/L Alkaline Phosphatase 116 (38-126) U/L Total Protein 5.6 L (6.3-8.2) g/dL Albumin 2.2 L (3.5-5.0) g/dL Critical Care Time Critical Care Time: Yes Total Critical Care Time: 31 Disposition Clinical Impression: Dementia, FROILAN (acute kidney injury), Anemia, Altered mental status Disposition: ADMITTED IP TO THIS [facility] Condition: Fair Is patient prescribed a controlled substance at d/c from ED?: No Time of Disposition: 17:00
[2024-02-09 16:49] LABS: ALT 6 U/L (4-34); AST 25 U/L (14-36); African American GFR (CKD) 23 (>60 ml/min/1.73 sqM); Albumin 2.2 g/dL (3.5-5.0); Alkaline Phosphatase 116 U/L (38-126); Anion Gap 6 mmol/L; Blood Urea Nitrogen 17 mg/dL (7-17); Calcium 7.5 mg/dL (8.4-10.2); Carbon Dioxide 30 mmol/L (22-30); Chloride 102 mmol/L (98-107); Glucose 215 mg/dL (74-99); Non-African American GFR(CKD) 20 (>60 ml/min/1.73 sqM); Potassium 3.5 mmol/L (3.5-5.1); Sodium 138 mmol/L (137-145); Total Bilirubin 0.3 mg/dL (0.2-1.3); Total Protein 5.6 g/dL (6.3-8.2)
[2024-02-09 16:53] LABS: INR 0.9 (<1.2); Partial Thromboplastin Time 25.8 sec (22.0-30.0); Prothrombin Time 10.2 sec (10.0-12.5)
[2024-02-09 16:55] LABS: Anisocytosis Slight; Basophils % (A) 0 %; Eosinophils # (A) 0.1 k/uL (0-0.7); Eosinophils % (A) 1 %; Hypochromasia Marked; Lymphocytes % (A) 17 %; MCH 30.6 pg (25.0-35.0); MCV 95.7 fL (80.0-100.0); Macrocytosis Slight; Mean Platelet Volume 8.7; Monocytes # (A) 0.5 k/uL (0-1.0); Monocytes % (A) 8 %; Neutrophils # (A) 4.2 k/uL (1.3-7.7); Neutrophils % (A) 72 %; Platelet Count 291 k/uL (150-450); RBC 1.88 m/uL (3.80-5.40); RDW 18.3 % (11.5-15.5); WBC 5.8 k/uL (3.8-10.6)
[2024-02-09 17:09] LABS: HGB 5.8 gm/dL (11.4-16.0)
[2024-02-09] MEDS ORDERED: ONDANSETRON 4 MG/2 ML VIAL IVP PRN (17:17)
[2024-02-09] MEDS ORDERED: NALOXONE 0.4 MG/ML 1 ML VIAL IV PRN (17:17)
[2024-02-09] MEDS ORDERED: MORPHINE SULFATE 4 MG/ML SYRINGE IV PRN (17:17)
[2024-02-09 17:38] LABS: Anisocytosis Slight; Basophils % (A) 1 %; Eosinophils # (A) 0.1 k/uL (0-0.7); Eosinophils % (A) 1 %; HCT 20.3 % (34.0-46.0); Hypochromasia Marked; Lymphocytes # (A) 1.1 k/uL (1.0-4.8); Lymphocytes % (A) 20 %; MCH 29.1 pg (25.0-35.0); MCHC 30.3 g/dL (31.0-37.0); Macrocytosis Slight; Mean Platelet Volume 7.8; Monocytes # (A) 0.3 k/uL (0-1.0); Monocytes % (A) 6 %; Neutrophils # (A) 3.8 k/uL (1.3-7.7); Neutrophils % (A) 70 %; Platelet Count 267 k/uL (150-450); RBC 2.11 m/uL (3.80-5.40); RDW 18.1 % (11.5-15.5); WBC 5.4 k/uL (3.8-10.6)
[2024-02-09 17:44] LABS: HGB 6.1 gm/dL (11.4-16.0)
[2024-02-09 17:50] LABS: ALT 6 U/L (4-34); AST 23 U/L (14-36); African American GFR (CKD) 21 (>60 ml/min/1.73 sqM); Albumin 2.2 g/dL (3.5-5.0); Alkaline Phosphatase 120 U/L (38-126); Anion Gap 2 mmol/L; Blood Urea Nitrogen 18 mg/dL (7-17); Calcium 7.5 mg/dL (8.4-10.2); Carbon Dioxide 33 mmol/L (22-30); Chloride 104 mmol/L (98-107); Glucose 192 mg/dL (74-99); Non-African American GFR(CKD) 19 (>60 ml/min/1.73 sqM); Phosphorus 2.5 mg/dL (2.5-4.5); Potassium 3.5 mmol/L (3.5-5.1); Sodium 139 mmol/L (137-145); Total Bilirubin 0.4 mg/dL (0.2-1.3); Total Protein 5.4 g/dL (6.3-8.2)
[2024-02-09] MEDS: SODIUM CHLORIDE 0.9% 1,000 ML IV SCH (19:39)
[2024-02-09] MEDS ORDERED: bisacodyL 10 MG SUPP RECTAL PRN (22:07)
[2024-02-09] MEDS ORDERED: ACETAMINOPHEN TAB 500 MG TAB PO PRN (22:07)
[2024-02-09] MEDS: CARBIDOPA-LEVODOPA 25-100 MG 1 EACH TAB PO SCH (22:31)
[2024-02-09] MEDS: MELATONIN 1 MG TAB PO SCH (22:31)
[2024-02-09] MEDS: LACOSAMIDE 50 MG TABLET PO SCH (22:31)
[2024-02-09] MEDS: MIRTAZAPINE 15 MG TAB PO SCH (22:31)
[2024-02-10 03:08] LABS: Anisocytosis Slight; HCT 23.4 % (34.0-46.0); HGB 7.3 gm/dL (11.4-16.0); Hypochromasia Marked; MCH 30.1 pg (25.0-35.0); MCHC 31.3 g/dL (31.0-37.0); MCV 95.9 fL (80.0-100.0); Macrocytosis Slight; Mean Platelet Volume 7.6; Platelet Count 262 k/uL (150-450); Poikilocytosis Slight; RBC 2.43 m/uL (3.80-5.40); RDW 17.3 % (11.5-15.5); WBC 6.4 k/uL (3.8-10.6)
[2024-02-10 03:28] LABS: ALT <6 U/L (4-34); AST 27 U/L (14-36); African American GFR (CKD) 19 (>60 ml/min/1.73 sqM); Albumin 2.2 g/dL (3.5-5.0); Alkaline Phosphatase 114 U/L (38-126); Anion Gap 4 mmol/L; Blood Urea Nitrogen 20 mg/dL (7-17); Calcium 7.4 mg/dL (8.4-10.2); Carbon Dioxide 32 mmol/L (22-30); Chloride 103 mmol/L (98-107); Glucose 222 mg/dL (74-99); Non-African American GFR(CKD) 17 (>60 ml/min/1.73 sqM); Potassium 3.7 mmol/L (3.5-5.1); Sodium 139 mmol/L (137-145); Total Bilirubin 0.4 mg/dL (0.2-1.3); Total Protein 5.4 g/dL (6.3-8.2)
[2024-02-10] MEDS ORDERED: NON FORMULARY DRUG (Nepro 1 CAN Ml) PO SCH ×2 (06:00→12:00)
[2024-02-10 06:09] LABS: Glucose,Whole Blood 125 mg/dL (70-110)
[2024-02-10] MEDS: FUROSEMIDE 20 MG TAB PO SCH (06:23)
[2024-02-10] MEDS: LEVOTHYROXINE 100 MCG TAB PO SCH (06:23)
[2024-02-10] MEDS: INSULIN ASPART (NovoLOG) 100 UNIT/ML VIAL SQ SCH ×2 (06:24→21:02)
[2024-02-10] MEDS: ASPIRIN 81 MG PO SCH (09:54)
[2024-02-10] MEDS: polyethylene glycoL 3350 17 GM POWD.PACK PO SCH (09:54)
[2024-02-10] MEDS: PANTOPRAZOLE 40 MG TABLET PO SCH (09:55)
[2024-02-10] MEDS: ATORVASTATIN 40 MG TAB PO SCH (09:55)
[2024-02-10] MEDS: MAGNESIUM OXIDE 400 MG TAB PO SCH (09:55)
[2024-02-10] MEDS: FERROUS SULFATE 325 MG TAB PO SCH (09:55)
[2024-02-10] MEDS: FOLIC ACID-VIT B COMPLEX-VIT C 1 CAP PO SCH (09:55)
[2024-02-10] MEDS: ASCORBIC ACID 500 MG TAB PO SCH (09:55)
[2024-02-10] MEDS: CITALOPRAM HYDROBROMIDE 20 MG TAB PO SCH (09:56)
[2024-02-10] MEDS: amLODIPine 5 MG TAB PO SCH (09:56)
[2024-02-10] MEDS: POTASSIUM CHLORIDE ER 10 MEQ TAB.ER.PRT PO SCH (09:56)
[2024-02-10] MEDS: CALCIUM CARBONATE 500 MG CHEWABLE PO SCH (09:57)
[2024-02-10] MEDS: CYANOCOBALAMIN 500 MCG TAB PO SCH (09:57)
[2024-02-10] MEDS ORDERED: cefTRIAXone 2 GM VIAL IVPB SCH (10:15)
--- NOTE | 2024-02-10 10:34 | P.HPIM ---
History of Present Illness H&P Date: 02/09/24 HISTORY OF PRESENT ILLNESS: 78-year-old female from [facility] with history of end-stage renal disease was started on hemodialysis with her last admission In late December early January 2024, has been on hemodialysis 3 times a week on the long. Also has a longst anding history of type 2 diabetes, chronic anemia, Alzheimer disease, recurrent UTI, chronic neuropathy with prior history of pelvic fracture and chronic pelvic pain syndrome. Was hospitalized last time with worsening confusion and altered mental status with severe encephalopathy. She found to have elevated troponin with possible non-STEMI. Worsening confusion with worsening acute kidney injury having end-stage renal disease requiring hemodialysis 3 times a week. Also history of hyperkalemia with recurrent UTI with recurrent left shoulder pain with previous history of pelvic ramus fracture. Also had history of chronic anemia with last admission had worsening anemia with GI bleed requiring EGD found to have esophagitis and gastritis. Patient was treated complete home hospitalization with multiple complication and ended up making it to [facility] on 01/22/2024 the plan is for she was hospitalized from October 30 to November 02, 2023. Sadly in the last 2 weeks patient has been having severe anemia with hemoglobin running below 7 she was sent to the emergency department on the and despite the hemoglobin was below 7 at the time was around 6.7 found to be 7.4 in the emergency room and she was sent back to [facility]. Patient was doing hemodialysis today which she found to have hemoglobin of 5.8 patient was more confused having fatigue weakness tiredness challenging blood pressure could not complete her dialysis with sent from the dialysis center to the emergency department [facility] where was seen and evaluated her hemoglobin initially was 5.8 and repeat after 2 hours to be around 6.1 with hematocrit of 20.3. Arrangement for blood transfusion was made and patient was hospitalized look for any acute GI bleed or any positive Hemoccult at this point also patient be seen nephrology will continue hemodialysis while in-house. REVIEW OF SYSTEMS: CONSTITUTIONAL: Elderly quite confused does not look in any respiratory distress. EYES: No icterus sclerae, no conjunctivitis. EARS, NOSE, MOUTH, THROAT, and FACE: No sore throat, lymphadenopathy, carotid bruits or deformity. RESPIRATORY: Mild shortness of breath no cough or wheezes. CARDIOVASCULAR: Positive PND orthopnea palpitation no angina.. GASTROINTESTINAL: No Abd pain, Nausea or vomiting, no Diarrhea or constipation, No GI Bleed, no distention or masses. Slight increase heartburn. GENITOURINARY: Negative for Hematuria or UTI, no kidney stones. INTEGUMENT/BREAST: Negative for any muscular injury with mild osteoarthritis.. HEMATOLOGIC/LYMPHATIC: Chronic anemia with no bleeding. MUSCULOSKELTAL: Still have slight swelling discomfort and lymphedema in the left upper extremity and shoulder area. NEURLOGICAL: Confusion and worsening memory. BEHAVIORAL/PSYCH: Negative. ENDOCRINE: Negative. PHYSICAL EXAMINATION: General Appearance: Elderly laying in bed mildly confused does not look in any respiratory distress. Neck HEENT: Supple, no lymphadenopathy, no thyroid enlargement, no carotid bruits. Lungs: Decreased breath sound bilaterally with fine rhonchi positive mild expiratory wheezes. Chest Wall: Decreased expansion with deep inspiration no tenderness and no deformity was found on exam, no costochondral pain or discomfort. Heart: Regular rate and rhythm, S1, S2 slight tachycardia. No rub. Back: Symmetric, no curvature, ROM normal, no CVA tenderness. Abdomen: Soft, non-tender, bowel sounds active all four quadrants, no masses, no organomegaly. Slight epigastric discomfort. Extremities: Has quite with discomfort and swelling with lymphedema on the left upper extremity still have slight discomfort in the right hip area. Pulses: 2+ and symmetric. Skin: Skin color, texture, tugor normal, no rashes or lesions. Neurologic: Alert oriented with slight confusion, slight resting tremor and mild rigidity. Cranial nerves II through XII intact, generalized weakness with abnormal balance and gait. ASSESSMENT AND PLAN: _Acute symptomatic anemia: Mostly iron deficiency and chronic disease, patient will be having blood transfusion she had from her last hospitalization some GI workup with general surgery will continue to watch patient for any active bleed at this point also continue iron along with Procrit. _ Worsening shortness of breath and dyspnea: Combination of severe anemia along with diastolic congestive heart failure. _End-stage renal disease on hemodialysis 3 times a week with hemodialysis need to be continue this time could not finish dialysis today because of the severity of her anemia. _History of recent type II non-STEMI: Still on medical management doing well. _Recent history of left shoulder septic joint with MSSA was treated post I&D was continue on IV antibiotic with Rocephin 2 g daily for 3 weeks. Will continue IV Rocephin while patient is in the hospital. _Lymphedema on the left upper extremity: Patient be going for Doppler to exclude possibility of DVT. _Hypertension: Continue Norvasc 5 mg a day we will titrate dose higher if needed. _Type 2 diabetes: Has been on NovoLog per sliding scales on Levemir long-acting will watch for any hypoglycemia. _Parkinson disease: Has been on carbidopa-levodopa resume medication. _Alzheimer disease and worsening memory: Has not been on any medication but still controlling her symptoms patient has no compatible or any behavioral issues. _Hypothyroidism: Continue levothyroxine 100 mcg daily. _Hyperlipidemia: Remain on simvastatin 80 mg daily. _Recurrent urinary tract infection: Was on Rocephin 2 g IV daily. UA culture will be done and treat if needed. _GI prophylaxis: Continue pantoprazole. _DVT prophylaxis: Early mobilization and knee-high JOANIE hose. CODE STATUS: Full code. Admit patient to the inpatient service for more than 2 night stay. Past Medical History Past Medical History: Dementia, Diabetes Mellitus, Hyperlipidemia, Hypertension, Thyroid Disorder History of Any Multi-Drug Resistant Organisms: None Reported Date of last positivie culture/infection: 01/04/24 MDRO Source:: Urine Past Surgical History: Unable to Obtain Past Anesthesia/Blood Transfusion Reactions: No Reported Reaction Past Psychological History: Depression Smoking Status: Never smoker Past Alcohol Use History: None Reported Past Drug Use History: None Reported - Past Family History Brother(s) Additional Family Medical History / Comment(s): Unable to obtain due to patient's underlying dementia Medications and Allergies Home Medications Medication Instructions Recorded Confirmed Type Acetaminophen Tab [Tylenol] 500 mg PO Q6H PRN 07/27/22 02/09/24 History Aspirin EC [Ecotrin Low Dose] 81 mg PO DAILY@79907/27/22 02/09/24 History Levothyroxine Sodium 100 mcg PO MOTUWETHFRSA@59907/27/22 02/09/24 History Simvastatin [Zocor] 80 mg PO DAILY@79907/27/22 02/09/24 History Carbidopa-Levodopa 25-100 mg 1 tab PO QID 10/30/23 02/09/24 History [Sinemet 25-100 mg] Ferrous Sulfate [Iron (65 MG 325 mg PO DAILY@79901/04/24 02/09/24 History Elemental)] Mirtazapine [Remeron] 7.5 mg PO HS tab 01/22/24 02/09/24 Rx cefTRIAXone [Rocephin] 2 gm IVPB Q24HR #30 each 01/22/24 02/09/24 Rx Ascorbic Acid [Vitamin C] 500 mg PO DAILY@0800 02/09/24 02/09/24 History Calcium Carbonate [Tums] 500 mg PO BID@0800,1700 02/09/24 02/09/24 History Citalopram Hydrobromide [CeleXA] 20 mg PO DAILY@0800 02/09/24 02/09/24 History Cyanocobalamin [Vitamin B-12] 1,000 mcg PO DAILY@0800 02/09/24 02/09/24 History Furosemide [Lasix] 60 mg PO DAILY@0600 02/09/24 02/09/24 History INSULIN ASPART (NovoLOG) [NovoLOG See Protocol SQ ACHS 02/09/24 02/09/24 History (formulary)] Lacosamide 100 mg PO BID@0800,2100 02/09/24 02/09/24 History Levothyroxine Sodium [Synthroid] 50 mcg PO CALABRESE@0600 02/09/24 02/09/24 History Magnesium Oxide [Mag-Ox] 400 mg PO DAILY@0800 02/09/24 02/09/24 History Melatonin 1 mg PO HS 02/09/24 02/09/24 History Nephro-Oralia 1mg 1 tab PO DAILY@0800 02/09/24 02/09/24 History Nepro 120 ml PO BID@1200,1700 02/09/24 02/09/24 History Nepro 120 ml PO SUMOWEFR@0802/09/24 02/09/24 History Nepro 237 ml PO TUTHSA@0600 02/09/24 02/09/24 History Pantoprazole [Protonix] 40 mg PO BID@0800,1700 02/09/24 02/09/24 History Potassium Chloride [Klor-Con 10 ER] 10 meq PO DAILY@0800 02/09/24 02/09/24 History amLODIPine [Norvasc] 5 mg PO DAILY@0800 02/09/24 02/09/24 History bisacodyL [Dulcolax] 10 mg RECTAL DAILY PRN 02/09/24 02/09/24 History polyethylene glycoL 3350 [Miralax] 17 gm PO DAILY@0800 02/09/24 02/09/24 History Allergies Allergy/AdvReac Type Severity Reaction Status Date / Time peanut AdvReac "Watery Verified 02/09/24 15:25 eyes" Physical Exam Vitals: Vital Signs Temp Pulse Pulse Resp BP BP Pulse Ox 02/09/24 21:42 98.4 F 88 20 135/75 99 02/09/24 21:22 98.4 F 87 18 139/76 100 02/09/24 21:13 98.0 F 89 16 143/73 02/09/24 20:40 98.4 F 90 18 142/67 95 02/09/24 19:32 90 18 152/69 91 L 02/09/24 17:28 20 02/09/24 17:02 86 16 125/69 94 L 02/09/24 15:02 84 16 125/59 95 02/09/24 14:57 98.9 F 83 16 115/55 96 Intake and Output 02/09/24 02/09/24 02/09/24 06:59 14:59 22:59 Intake Total 300 Balance 300 Intake: Oral 300 Blood Product 0 Rc As-1 Unit 0 [id number] Other: Weight 62.596 kg 62.596 kg Results CBC & Chem 7: 02/10/24 02:08 02/10/24 02:08 Labs: Abnormal Lab Results - Last 24 Hours (Table) 02/09/24 02/09/24 02/09/24 Range/Units 16:15 16:15 17:20 RBC 1.88 L (3.80-5.40) m/uL Hgb 5.8 L* D (11.4-16.0) gm/dL Hct 18.0 L* (34.0-46.0) % MCHC (31.0-37.0) g/dL RDW 18.3 H (11.5-15.5) % Carbon Dioxide (22-30) mmol/L BUN (7-17) mg/dL Creatinine 2.29 H (0.52-1.04) mg/dL Glucose 215 H (74-99) mg/dL Calcium 7.5 L (8.4-10.2) mg/dL Total Protein 5.6 L (6.3-8.2) g/dL Albumin 2.2 L (3.5-5.0) g/dL Crossmatch See Detail 02/09/24 02/09/24 Range/Units 17:20 17:20 RBC 2.11 L (3.80-5.40) m/uL Hgb 6.1 L* (11.4-16.0) gm/dL Hct 20.3 L (34.0-46.0) % MCHC 30.3 L (31.0-37.0) g/dL RDW 18.1 H (11.5-15.5) % Carbon Dioxide 33 H (22-30) mmol/L BUN 18 H (7-17) mg/dL Creatinine 2.41 H (0.52-1.04) mg/dL Glucose 192 H (74-99) mg/dL Calcium 7.5 L (8.4-10.2) mg/dL Total Protein 5.4 L (6.3-8.2) g/dL Albumin 2.2 L (3.5-5.0) g/dL Crossmatch Thrombosis Risk Factor Assmnt - Choose All That Apply Each Factor Represents 1 point: Medical pt on bed rest, Obesity (BMI >25) Each Risk Factor Represents 2 Points: Central venous access Each Risk Factor Represents 3 Points: Age 75 years or older Thrombosis Risk Factor Assessment Total Risk Factor Score: 7 Thrombosis Risk Factor Assessment Level: High Risk
--- NOTE | 2024-02-10 10:36 | P.PN ---
Subjective Progress Note Date: 02/10/24 HISTORY OF PRESENT ILLNESS: 78-year-old female from [facility] with history of end-stage renal disease was started on hemodialysis with her last admission In late December early January 2024, has been on hemodialysis 3 times a week on the long. Also has a longstanding history of type 2 diabetes, chronic anemia, Alzheimer disease, recurrent UTI, chronic neuropathy with prior history of pelvic fracture and chronic pelvic pain syndrome. Was hospitalized last time with worsening confusion and altered mental status with severe encephalopathy. She found to have elevated troponin with possible non-STEMI. Worsening confusion with worsening acute kidney injury having end-stage renal disease requiring hemodialysis 3 times a week. Also history of hyperkalemia with recurrent UTI with recurrent left shoulder pain with previous history of pelvic ramus fracture. Also had history of chronic anemia with last admission had worsening anemia with GI bleed requiring EGD found to have esophagitis and gastritis. Patient was treated complete home hospitalization with multiple complication and ended up making it to [facility] on 01/22/2024 the plan is for she was hos pitalized from October 30 to November 02, 2023. Sadly in the last 2 weeks patient has been having severe anemia with hemoglobin running below 7 she was sent to the emergency department on the and despite the hemoglobin was below 7 at the time was around 6.7 found to be 7.4 in the emergency room and she was sent back to [facility]. Patient was doing hemodialysis today which she found to have hemoglobin of 5.8 patient was more confused having fatigue weakness tiredness challenging blood pressure could not complete her dialysis with sent from the dialysis center to the emergency department [facility] where was seen and evaluated her hemoglobin initially was 5.8 and repeat after 2 hours to be around 6.1 with hematocrit of 20.3. Arrangement for blood transfusion was made and patient was hospitalized look for any acute GI bleed or any positive Hemoccult at this point also patient be seen nephrology will continue hemodialysis while in-house. 02/10/2024: Patient had 1 unit of blood transfusion last time hemoglobin is up to 7.1, he is going dialysis today, still have swelling in the left upper extremity will be doing Doppler today. Patient still on IV antibiotic resume Rocephin 2 g daily still for at least another 1 week. Still have PICC line in the right upper extremity been used for the purpose. No active sign of GI bleed no bloody or black stool and no nausea or vomiting at any time. Patient had a GI study last time. REVIEW OF SYSTEMS: CONSTITUTIONAL: Elderly quite confused does not look in any respiratory distress. EYES: No icterus sclerae, no conjunctivitis. EARS, NOSE, MOUTH, THROAT, and FACE: No sore throat, lymphadenopathy, carotid bruits or deformity. RESPIRATORY: Mild shortness of breath no cough or wheezes. CARDIOVASCULAR: Positive PND orthopnea palpitation no angina.. GASTROINTESTINAL: No Abd pain, Nausea or vomiting, no Diarrhea or constipation, No GI Bleed, no distention or masses. Slight increase heartburn. GENITOURINARY: Negative for Hematuria or UTI, no kidney stones. INTEGUMENT/BREAST: Negative for any muscular injury with mild osteoarthritis.. HEMATOLOGIC/LYMPHATIC: Chronic anemia with no bleeding. MUSCULOSKELTAL: Still have slight swelling discomfort and lymphedema in the left upper extremity and shoulder area. NEURLOGICAL: Confusion and worsening memory. BEHAVIORAL/PSYCH: Negative. ENDOCRINE: Negative. PHYSICAL EXAMINATION: General Appearance: Elderly laying in bed mildly confused does not look in any respiratory distress. Neck HEENT: Supple, no lymphadenopathy, no thyroid enlargement, no carotid bruits. Lungs: Decreased breath sound bilaterally with fine rhonchi positive mild expiratory wheezes. Chest Wall: Decreased expansion with deep inspiration no tenderness and no deformity was found on exam, no costochondral pain or discomfort. Heart: Regular rate and rhythm, S1, S2 slight tachycardia. No rub. Back: Symmetric, no curvature, ROM normal, no CVA tenderness. Abdomen: Soft, non-tender, bowel sounds active all four quadrants, no masses, no organomegaly. Slight epigastric discomfort. Extremities: Has quite with discomfort and swelling with lymphedema on the left upper extremity still have slight discomfort in the right hip area. Pulses: 2+ and symmetric. Skin: Skin color, texture, tugor normal, no rashes or lesions. Neurologic: Alert oriented with slight confusion, slight resting tremor and mild rigidity. Cranial nerves II through XII intact, generalized weakness with abnormal balance and gait. ASSESSMENT AND PLAN: _Acute symptomatic anemia: Mostly iron deficiency and chronic disease, patient will be having blood transfusion she had from her last hospitalization some GI workup with general surgery will continue to watch patient for any active bleed at this point also continue iron along with Procrit. _ Worsening shortness of breath and dyspnea: Combination of severe anemia along with diastolic congestive heart failure. Hopefully dialysis and blood transfusion will help. _End-stage renal disease on hemodialysis 3 times a week with hemodialysis need to be continue this time could not finish dialysis today because of the severity of her anemia. _History of recent type II non-STEMI: Still on medical management doing well. No chest pain or angina. _Recent history of left shoulder septic joint with MSSA was treated post I&D was continue on IV antibiotic with Rocephin 2 g daily for 3 weeks. Will continue IV Rocephin while patient is in the hospital. _Lymphedema on the left upper extremity: Patient be going for Doppler to exclude possibility of DVT. _Hypertension: Continue Norvasc 5 mg a day we will titrate dose higher if needed. _Type 2 diabetes: Has been on NovoLog per sliding scales on Levemir long-acting will watch for any hypoglycemia. _Parkinson disease: Has been on carbidopa-levodopa resume medication. _Alzheimer disease and worsening memory: Has not been on any medication but still controlling her symptoms patient has no compatible or any behavioral issues. _Hypothyroidism: Continue levothyroxine 100 mcg daily. _Hyperlipidemia: Remain on simvastatin 80 mg daily. _Recurrent urinary tract infection: Was on Rocephin 2 g IV daily. UA culture will be done and treat if needed. _Hemodialysis to be done today, repeat CBC and transfuse 1 more unit of blood if patient still running in the low 7. Objective - Vital Signs Vital signs: Vital Signs Temp 98.6 F 02/10/24 03:46 Pulse 81 02/10/24 03:46 Resp 18 02/10/24 03:46 BP 153/71 02/10/24 03:46 Pulse Ox 99 02/10/24 03:46 FiO2 Intake & Output 02/09/24 02/09/24 02/10/24 06:59 18:59 06:59 Intake Total 300 310 Balance 300 310 Weight 62.596 kg 62.596 kg Intake: Oral 300 Blood Product 310 Rc As-1 Unit 310 [id number] - Labs CBC & Chem 7: 02/10/24 02:08 02/10/24 02:08 Labs: Abnormal Lab Results - Last 24 Hours (Table) 02/09/24 02/09/24 02/09/24 Range/Units 16:15 16:15 17:20 RBC 1.88 L (3.80-5.40) m/uL Hgb 5.8 L* D (11.4-16.0) gm/dL Hct 18.0 L* (34.0-46.0) % MCHC (31.0-37.0) g/dL RDW 18.3 H (11.5-15.5) % Carbon Dioxide (22-30) mmol/L BUN (7-17) mg/dL Creatinine 2.29 H (0.52-1.04) mg/dL Glucose 215 H (74-99) mg/dL POC Glucose (mg/dL) (70-110) mg/dL Calcium 7.5 L (8.4-10.2) mg/dL Total Protein 5.6 L (6.3-8.2) g/dL Albumin 2.2 L (3.5-5.0) g/dL Crossmatch See Detail 02/09/24 02/09/24 02/10/24 Range/Units 17:20 17:20 02:08 RBC 2.11 L (3.80-5.40) m/uL Hgb 6.1 L* (11.4-16.0) gm/dL Hct 20.3 L (34.0-46.0) % MCHC 30.3 L (31.0-37.0) g/dL RDW 18.1 H (11.5-15.5) % Carbon Dioxide 33 H 32 H (22-30) mmol/L BUN 18 H 20 H (7-17) mg/dL Creatinine 2.41 H 2.64 H (0.52-1.04) mg/dL Glucose 192 H 222 H (74-99) mg/dL POC Glucose (mg/dL) (70-110) mg/dL Calcium 7.5 L 7.4 L (8.4-10.2) mg/dL Total Protein 5.4 L 5.4 L (6.3-8.2) g/dL Albumin 2.2 L 2.2 L (3.5-5.0) g/dL Crossmatch 02/10/24 02/10/24 Range/Units 02:08 06:09 RBC 2.43 L (3.80-5.40) m/uL Hgb 7.3 L (11.4-16.0) gm/dL Hct 23.4 L (34.0-46.0) % MCHC (31.0-37.0) g/dL RDW 17.3 H (11.5-15.5) % Carbon Dioxide (22-30) mmol/L BUN (7-17) mg/dL Creatinine (0.52-1.04) mg/dL Glucose (74-99) mg/dL POC Glucose (mg/dL) 125 H (70-110) mg/dL Calcium (8.4-10.2) mg/dL Total Protein (6.3-8.2) g/dL Albumin (3.5-5.0) g/dL Crossmatch
--- NOTE | 2024-02-10 11:21 | US ---
EXAMINATION TYPE: US venous doppler duplex UE LT DATE OF EXAM: 02/10/2024 COMPARISON: US CLINICAL INDICATION: Female, 78 years old with history of DVT; Left arm swelling, pt poor historian SIDE PERFORMED: Left Left Arm: Negative for DVT, left ulnar veins not visualized due to pt unable to move left arm IMPRESSION: 1 left upper slightly ultrasound negative for deep venous thrombosis.
[2024-02-10 11:34] LABS: Anisocytosis Slight; HCT 25.8 % (34.0-46.0); HGB 8.1 gm/dL (11.4-16.0); Hypochromasia Moderate; MCH 29.8 pg (25.0-35.0); MCHC 31.4 g/dL (31.0-37.0); MCV 94.9 fL (80.0-100.0); Mean Platelet Volume 7.2; Platelet Count 292 k/uL (150-450); Poikilocytosis Slight; RBC 2.72 m/uL (3.80-5.40); RDW 17.4 % (11.5-15.5); WBC 7.3 k/uL (3.8-10.6)
[2024-02-10 11:42] LABS: Glucose,Whole Blood 123 mg/dL (70-110)
--- NOTE | 2024-02-10 12:11 | P.NPCON ---
History of Present Illness - Reason for Consult acute renal failure - History of Present Illness patient is a 78-year-old female with hemodialysis-dependent acute kidney injury from her recent hospitalization in December 2023. Patient remains oliguric and dialysis dependent. Underlying history of type 2 diabetes, as I was disease, hypertension. Patient is maintained on antibiotics 4 left shoulder septic arthritis with MSSA patient was admitted yesterday due to low hemoglobin at 5.8 g/L. no active bl eeding noted. Status post EGD during her last hospitalization which showed hiatal hernia and esophagitis. Maintained on proton pump inhibitors. status post 1 unit packed RBCs transfusion. Hemoglobin is 8.1 g/dL today. no complaints today. left arm has been quite swollen. Much more than the right arm Review of Systems as per HPI Past Medical History Past Medical History: Dementia, Diabetes Mellitus, Hyperlipidemia, Hypertension, Thyroid Disorder History of Any Multi-Drug Resistant Organisms: None Reported Date of last positivie culture/infection: 01/04/24 MDRO Source:: Urine Past Surgical History: Unable to Obtain Past Anesthesia/Blood Transfusion Reactions: No Reported Reaction Past Psychological History: Depression Smoking Status: Never smoker Past Alcohol Use History: None Reported Past Drug Use History: None Reported - Past Family History Brother(s) Additional Family Medical History / Comment(s): Unable to obtain due to patient's underlying dementia Medications and Allergies Home Medications Medication Instructions Recorded Confirmed Type Acetaminophen Tab [Tylenol] 500 mg PO Q6H PRN 07/27/22 02/09/24 History Aspirin EC [Ecotrin Low Dose] 81 mg PO DAILY@79907/27/22 02/09/24 History Levothyroxine Sodium 100 mcg PO MOTUWETHFRSA@59907/27/22 02/09/24 History Simvastatin [Zocor] 80 mg PO DAILY@79907/27/22 02/09/24 History Carbidopa-Levodopa 25-100 mg 1 tab PO QID 10/30/23 02/09/24 History [Sinemet 25-100 mg] Ferrous Sulfate [Iron (65 MG 325 mg PO DAILY@0800 01/04/24 02/09/24 History Elemental)] Mirtazapine [Remeron] 7.5 mg PO HS tab 01/22/24 02/09/24 Rx cefTRIAXone [Rocephin] 2 gm IVPB Q24HR #30 each 01/22/24 02/09/24 Rx Ascorbic Acid [Vitamin C] 500 mg PO DAILY@0800 02/09/24 02/09/24 History Calcium Carbonate [Tums] 500 mg PO BID@0800,1700 02/09/24 02/09/24 History Citalopram Hydrobromide [CeleXA] 20 mg PO DAILY@0800 02/09/24 02/09/24 History Cyanocobalamin [Vitamin B-12] 1,000 mcg PO DAILY@0800 02/09/24 02/09/24 History Furosemide [Lasix] 60 mg PO DAILY@0600 02/09/24 02/09/24 History INSULIN ASPART (NovoLOG) [NovoLOG See Protocol SQ ACHS 02/09/24 02/09/24 History (formulary)] Lacosamide 100 mg PO BID@0800,2100 02/09/24 02/09/24 History Levothyroxine Sodium [Synthroid] 50 mcg PO CALABRESE@0602/09/24 02/09/24 History Magnesium Oxide [Mag-Ox] 400 mg PO DAILY@0800 02/09/24 02/09/24 History Melatonin 1 mg PO HS 02/09/24 02/09/24 History Nephro-Oralia 1mg 1 tab PO DAILY@0800 02/09/24 02/09/24 History Nepro 120 ml PO BID@1200,1700 02/09/24 02/09/24 History Nepro 120 ml PO SUMOWEFR@0800 02/09/24 02/09/24 History Nepro 237 ml PO TUTHSA@0600 02/09/24 02/09/24 History Pantoprazole [Protonix] 40 mg PO BID@0800,1700 02/09/24 02/09/24 History Potassium Chloride [Klor-Con 10 ER] 10 meq PO DAILY@0800 02/09/24 02/09/24 History amLODIPine [Norvasc] 5 mg PO DAILY@0800 02/09/24 02/09/24 History bisacodyL [Dulcolax] 10 mg RECTAL DAILY PRN 02/09/24 02/09/24 History polyethylene glycoL 3350 [Miralax] 17 gm PO DAILY@0800 02/09/24 02/09/24 History Allergies Allergy/AdvReac Type Severity Reaction Status Date / Time peanut AdvReac "Watery Verified 02/09/24 15:25 eyes" Physical Exam Vitals: Vital Signs Temp Pulse Pulse Resp BP BP Pulse Ox 02/10/24 08:30 98.5 F 88 18 148/67 98 02/10/24 03:46 98.6 F 81 18 153/71 99 02/09/24 23:55 98.4 F 85 18 138/73 99 02/09/24 21:42 98.4 F 88 20 135/75 99 02/09/24 21:22 98.4 F 87 18 139/76 100 02/09/24 21:13 98.0 F 89 16 143/73 02/09/24 20:40 98.4 F 90 18 142/67 95 02/09/24 19:32 90 18 152/69 91 L 02/09/24 17:28 20 02/09/24 17:02 86 16 125/69 94 L 02/09/24 15:02 84 16 125/59 95 02/09/24 14:57 98.9 F 83 16 115/55 96 Intake and Output 02/09/24 02/10/24 02/10/24 22:59 06:59 14:59 Intake Total 300 310 160 Balance 300 310 160 Intake: Intake, IV Titration 160 Amount Sodium Chloride 0.9% 1, 160 000 ml @ 20 mls/hr IV . Q24H [facility] Rx#:[id number] Oral 300 Blood Product 0 310 Rc As-1 Unit 0 310 [id number] Other: Weight 62.596 kg patient is awake, comfortable, no acute distress Examination of the heart S1 and S2 Examination lungs bilateral breath sounds are heard Abdomen is soft nontender Examination of the lower extremities shows trace edema. Left upper extremity with significant edema. M48/M60 [employer] exam grossly intact Results - Lab Results Most recent lab results Calcium 7.4 mg/dL (8.4-10.2) L 02/10/24 02:08 Phosphorus 2.5 mg/dL (2.5-4.5) 02/09/24 17:20 Magnesium 2.0 mg/dL (1.6-2.3) 02/09/24 17:20 02/10/24 10:59 02/10/24 02:08 Assessment and Plan Assessment: 1. Acute kidney injury currently hemodialysis dependent. Patient remains oliguric. She is maintained on Donya Thursday Saturday schedule. 2. Asymptomatic anemia most likely from GI bleed. Status post EGD during her last admission which showed hiatal hernia and esophagitis. Status post packed RBCs transfusion. 3. History of left shoulder septic arthritismaintained on antibiotics 4. History of recent non-ST elevation [place] 5. History of dementia Plan: hemodialysis today with UF of about 1 L continue with antibiotics Continue with proton pump inhibitors Repeat labs in a.m. Possible discharge if hemoglobin stays stable. Agree with left upper extremity Dopplers to rule out DVT Thank you for the consultation. We will continue to follow the patient with you during her hospitalization.
[2024-02-10 16:42] LABS: Glucose,Whole Blood 144 mg/dL (70-110)
[2024-02-10 19:56] LABS: Glucose,Whole Blood 226 mg/dL (70-110)
[2024-02-11 06:01] LABS: Glucose,Whole Blood 142 mg/dL (70-110)
[2024-02-11] MEDS: LEVOTHYROXINE 50 MCG TAB PO SCH (06:12)
[2024-02-11] MEDS ORDERED: NON FORMULARY DRUG (Nepro 1 CAN Ml) PO SCH (08:00)
[2024-02-11 10:07] LABS: Anisocytosis Slight; HCT 25.5 % (34.0-46.0); HGB 7.8 gm/dL (11.4-16.0); Hypochromasia Moderate; MCH 29.1 pg (25.0-35.0); MCHC 30.8 g/dL (31.0-37.0); MCV 94.5 fL (80.0-100.0); Mean Platelet Volume 7.6; Platelet Count 250 k/uL (150-450); Poikilocytosis Slight; RBC 2.69 m/uL (3.80-5.40); RDW 16.9 % (11.5-15.5); WBC 7.6 k/uL (3.8-10.6)
[2024-02-11 10:43] LABS: ALT <6 U/L (4-34); AST 25 U/L (14-36); African American GFR (CKD) 23 (>60 ml/min/1.73 sqM); Albumin 2.4 g/dL (3.5-5.0); Alkaline Phosphatase 112 U/L (38-126); Anion Gap 5 mmol/L; Blood Urea Nitrogen 17 mg/dL (7-17); Calcium 7.7 mg/dL (8.4-10.2); Carbon Dioxide 31 mmol/L (22-30); Chloride 101 mmol/L (98-107); Glucose 120 mg/dL (74-99); Non-African American GFR(CKD) 20 (>60 ml/min/1.73 sqM); Potassium 3.8 mmol/L (3.5-5.1); Sodium 137 mmol/L (137-145); Total Bilirubin 0.5 mg/dL (0.2-1.3); Total Protein 5.9 g/dL (6.3-8.2)
--- NOTE | 2024-02-11 11:17 | P.PN ---
Subjective patient is seen for follow-up for hemodialysis dependent acute kidney injury. She is currently maintained on a Monday schedule. tolerated dialysis well yesterday with UF of 1.4 L. Patient was admitted to the hospital with anemia and is status post packed RBCs transfusion for hemoglobin of 5.8 on initial admission. No active bleeding noted. hemoglobin at 7.8 today. No significant complaints Objective - Vital Signs Vital signs: Vital Signs Temp 98.1 F 02/11/24 08:30 Pulse 88 02/11/24 08:30 Resp 18 02/11/24 08:30 BP 152/76 02/11/24 08:30 Pulse Ox 94 L 02/11/24 08:30 FiO2 Intake & Output 02/10/24 02/11/24 02/11/24 18:59 06:59 18:59 Intake Total 918 Output Total 1400 300 0 Balance -482 -300 0 Intake: Intake, IV Titration 160 Amount Sodium Chloride 0.9% 1, 160 000 ml @ 20 mls/hr IV . Q24H [facility] Rx#:[id number] Oral 358 Hemodialysis 400 Output: Gastric Drainage 0 Urine 300 0 Stool 0 Urine/Stool Mix 0 Emesis 0 Oral Regurgitation 0 Hemodialysis 1400 Other 0 Other: # Voids 1 0 # Bowel Movements 0 - Exam patient is awake, comfortable, no acute distress Examination of the heart S1 and S2 Examination lungs bilateral breath sounds are heard Abdomen is soft nontender Examination of the lower extremities shows trace edema. Left upper extremity with significant edema. STUDIO GRIP exam grossly intact - Labs CBC & Chem 7: 02/11/24 09:08 02/11/24 09:08 Labs: Abnormal Lab Results - Last 24 Hours (Table) 02/10/24 02/10/24 02/10/24 Range/Units 10:59 11:40 16:40 RBC 2.72 L (3.80-5.40) m/uL Hgb 8.1 L (11.4-16.0) gm/dL Hct 25.8 L (34.0-46.0) % MCHC (31.0-37.0) g/dL RDW 17.4 H (11.5-15.5) % Carbon Dioxide (22-30) mmol/L Creatinine (0.52-1.04) mg/dL Glucose (74-99) mg/dL POC Glucose (mg/dL) 123 H 144 H (70-110) mg/dL Calcium (8.4-10.2) mg/dL Total Protein (6.3-8.2) g/dL Albumin (3.5-5.0) g/dL 02/10/24 02/11/24 02/11/24 Range/Units 19:55 05:59 09:08 RBC 2.69 L (3.80-5.40) m/uL Hgb 7.8 L (11.4-16.0) gm/dL Hct 25.5 L (34.0-46.0) % MCHC 30.8 L (31.0-37.0) g/dL RDW 16.9 H (11.5-15.5) % Carbon Dioxide (22-30) mmol/L Creatinine (0.52-1.04) mg/dL Glucose (74-99) mg/dL POC Glucose (mg/dL) 226 H 142 H (70-110) mg/dL Calcium (8.4-10.2) mg/dL Total Protein (6.3-8.2) g/dL Albumin (3.5-5.0) g/dL 02/11/24 Range/Units 09:08 RBC (3.80-5.40) m/uL Hgb (11.4-16.0) gm/dL Hct (34.0-46.0) % MCHC (31.0-37.0) g/dL RDW (11.5-15.5) % Carbon Dioxide 31 H (22-30) mmol/L Creatinine 2.29 H (0.52-1.04) mg/dL Glucose 120 H (74-99) mg/dL POC Glucose (mg/dL) (70-110) mg/dL Calcium 7.7 L (8.4-10.2) mg/dL Total Protein 5.9 L (6.3-8.2) g/dL Albumin 2.4 L (3.5-5.0) g/dL Assessment and Plan Assessment: 1. Acute kidney injury currently hemodialysis dependent. Patient remains oliguric. She is maintained on Monday schedule. 2. Asymptomatic anemia most likely from GI bleed. Status post EGD during her last admission which showed hiatal hernia and esophagitis. Status post packed RBCs transfusion. no active bleeding noted. 3. History of left shoulder septic arthritis maintained on antibiotics 4. History of recent non-ST elevation [place] 5. History of dementia 6. Left arm swelling with no evidence of DVT. Maintained on antibiotics for left shoulder septic arthritis Plan: continue antibiotics Maintain hemodialysis on Monday schedule Continue with daily Lasix. Urine output remains low
[2024-02-11 11:24] LABS: Glucose,Whole Blood 157 mg/dL (70-110)
[2024-02-11] MEDS: DARBEPOETIN ALFA 60 MCG/0.3 ML SYRINGE SQ SCH (12:17)
--- NOTE | 2024-02-11 13:34 | P.PN ---
Subjective Progress Note Date: 02/11/24 HISTORY OF PRESENT ILLNESS: 78-year-old female from [facility] with history of end-stage renal disease was started on hemodialysis with her last admission In late December early January 2024, has been on hemodialysis 3 times a week on the long. Also has a longstanding history of type 2 diabetes, chronic anemia, Alzheimer disease, recurrent UTI, chronic neuropathy with prior history of pelvic fracture and chronic pelvic pain syndrome. Was hospitalized last time with worsening confusion and altered mental status with severe encephalopathy. She found to have elevated troponin with possible non-STEMI. Worsening confusion with worsening acute kidney injury having end-stage renal disease requiring hemodialysis 3 times a week. Also history of hyperkalemia with recurrent UTI with recurrent left shoulder pain with previous history of pelvic ramus fracture. Also had history of chronic anemia with last admission had worsening anemia with GI bleed requiring EGD found to have esophagitis and gastritis. Patient was treated complete home hospitalization with multiple complication and ended up making it to [facility] on 01/22/2024 the plan is for she was hos pitalized from October 30 to November 02, 2023. Sadly in the last 2 weeks patient has been having severe anemia with hemoglobin running below 7 she was sent to the emergency department on the and despite the hemoglobin was below 7 at the time was around 6.7 found to be 7.4 in the emergency room and she was sent back to [facility]. Patient was doing hemodialysis today which she found to have hemoglobin of 5.8 patient was more confused having fatigue weakness tiredness challenging blood pressure could not complete her dialysis with sent from the dialysis center to the emergency department [facility] where was seen and evaluated her hemoglobin initially was 5.8 and repeat after 2 hours to be around 6.1 with hematocrit of 20.3. Arrangement for blood transfusion was made and patient was hospitalized look for any acute GI bleed or any positive Hemoccult at this point also patient be seen nephrology will continue hemodialysis while in-house. 02/10/2024: Patient had 1 unit of blood transfusion last time hemoglobin is up to 7.1, he is going dialysis today, still have swelling in the left upper extremity will be doing Doppler today. Patient still on IV antibiotic resume Rocephin 2 g daily still for at least another 1 week. Still have PICC line in the right upper extremity been used for the purpose. No active sign of GI bleed no bloody or black stool and no nausea or vomiting at any time. Patient had a GI study last time. 02/11/2024: Patient was able to complete her dialysis yesterday, hemoglobin after 2 units of blood transfusion is up to 8.1, no sign of GI bleed at this point. She was having slight swelling in the left upper extremity Doppler of the upper extremity did not show any DVT, Her mobility is still limited we will continue physical therapy at this point the patient is stable hopefully she will go back to [facility] tomorrow. REVIEW OF SYSTEMS: CONSTITUTIONAL: Elderly quite confused does not look in any respiratory distress. EYES: No icterus sclerae, no conjunctivitis. EARS, NOSE, MOUTH, THROAT, and FACE: No sore throat, lymphadenopathy, carotid bruits or deformity. RESPIRATORY: Mild shortness of breath no cough or wheezes. CARDIOVASCULAR: Positive PND orthopnea palpitation no angina.. GASTROINTESTINAL: No Abd pain, Nausea or vomiting, no Diarrhea or constipation, No GI Bleed, no distention or masses. Slight increase heartburn. GENITOURINARY: Negative for Hematuria or UTI, no kidney stones. INTEGUMENT/BREAST: Negative for any muscular injury with mild osteoarthritis.. HEMATOLOGIC/LYMPHATIC: Chronic anemia with no bleeding. MUSCULOSKELTAL: Still have slight swelling discomfort and lymphedema in the left upper extremity and shoulder area. NEURLOGICAL: Confusion and worsening memory. BEHAVIORAL/PSYCH: Negative. ENDOCRINE: Negative. PHYSICAL EXAMINATION: General Appearance: Elderly laying in bed mildly confused does not look in any respiratory distress. Neck HEENT: Supple, no lymphadenopathy, no thyroid enlargement, no carotid bruits. Lungs: Decreased breath sound bilaterally with fine rhonchi positive mild expiratory wheezes. Chest Wall: Decreased expansion with deep inspiration no tenderness and no deformity was found on exam, no costochondral pain or discomfort. Heart: Regular rate and rhythm, S1, S2 slight tachycardia. No rub. Back: Symmetric, no curvature, ROM normal, no CVA tenderness. Abdomen: Soft, non-tender, bowel sounds active all four quadrants, no masses, no organomegaly. Slight epigastric discomfort. Extremities: Has quite with discomfort and swelling with lymphedema on the left upper extremity still have slight discomfort in the right hip area. Pulses: 2+ and symmetric. Skin: Skin color, texture, tugor normal, no rashes or lesions. Neurologic: Alert oriented with slight confusion, slight resting tremor and mild rigidity. Cranial nerves II through XII intact, generalized weakness with abnormal balance and gait. ASSESSMENT AND PLAN: _Acute symptomatic anemia: Post unit of blood transfusion she is up to 8.1 doing well repeat CBC tomorrow morning. _ Worsening shortness of breath and dyspnea: Combination of severe anemia along with diastolic congestive heart failure. Hopefully dialysis and blood transfusion will help. _End-stage renal disease on hemodialysis 3 times a week with hemodialysis need to be continue this time could not finish dialysis today because of the severity of her anemia. _History of recent type II non-STEMI: Still on medical management doing well. No chest pain or angina. _Recent history of left shoulder septic joint with MSSA was treated post I&D was continue on IV antibiotic with Rocephin 2 g daily for 3 weeks. Will continue IV Rocephin while patient is in the hospital. Still will continue antibiotic for another week continue to do sed rate CRP and CBC weekly. _Lymphedema on the left upper extremity: Patient be going for Doppler to exclude possibility of DVT. No sign of DVT probably arm elevation and diuretics might be helpful. _Hypertension: Continue Norvasc 5 mg a day we will titrate dose higher if needed. _Type 2 diabetes: Has been on NovoLog per sliding scales on Levemir long-acting will watch for any hypoglycemia. _Parkinson disease: Has been on carbidopa-levodopa resume medication. _Alzheimer disease and worsening memory: Has not been on any medication but still controlling her symptoms patient has no compatible or any behavioral i ssues. _Hypothyroidism: Continue levothyroxine 100 mcg daily. _Hyperlipidemia: Remain on simvastatin 80 mg daily. _Recurrent urinary tract infection: Was on Rocephin 2 g IV daily. UA culture will be done and treat if needed. _Hemodialysis to be done today, repeat CBC and transfuse 1 more unit of blood if patient still running in the low 7. Prognosis: Fair. Discharge planning: Most likely will be going back to [facility] tomorrow. Objective - Vital Signs Vital signs: Vital Signs Temp 98.3 F 02/11/24 03:14 Pulse 89 02/11/24 03:14 Resp 20 02/11/24 03:14 BP 166/68 02/11/24 03:14 Pulse Ox 95 02/11/24 03:14 FiO2 Intake & Output 02/10/24 02/11/24 02/11/24 18:59 06:59 18:59 Intake Total 918 Output Total 1400 300 Balance -482 -300 Intake: Intake, IV Titration 160 Amount Sodium Chloride 0.9% 1, 160 000 ml @ 20 mls/hr IV . Q24H [facility] Rx#:[id number] Oral 358 Hemodialysis 400 Output: Urine 300 Hemodialysis 1400 Other: # Voids 1 - Labs CBC & Chem 7: 02/10/24 10:59 02/10/24 02:08 Labs: Abnormal Lab Results - Last 24 Hours (Table) 02/10/24 02/10/24 02/10/24 Range/Units 10:59 11:40 16:40 RBC 2.72 L (3.80-5.40) m/uL Hgb 8.1 L (11.4-16.0) gm/dL Hct 25.8 L (34.0-46.0) % RDW 17.4 H (11.5-15.5) % POC Glucose (mg/dL) 123 H 144 H (70-110) mg/dL 02/10/24 02/11/24 Range/Units 19:55 05:59 RBC (3.80-5.40) m/uL Hgb (11.4-16.0) gm/dL Hct (34.0-46.0) % RDW (11.5-15.5) % POC Glucose (mg/dL) 226 H 142 H (70-110) mg/dL
[2024-02-11 16:19] LABS: Glucose,Whole Blood 177 mg/dL (70-110)
--- NOTE | 2024-02-11 19:11 | XR ---
EXAMINATION TYPE: XR chest 1V portable DATE OF EXAM: 02/11/2024 COMPARISON: 01/20/2024 INDICATION: Increasing cough, wheezing TECHNIQUE: Single frontal view of the chest is obtained. FINDINGS: The heart size is normal. The pulmonary vasculature is normal. Small left pleural effusion is present. Minimal right pleural effusion is present. Diffuse increased lung markings in the right upper lung field. Correlate for atypical pulmonary edema PICC line is on the right with the tip in the superior vena cava region. Double-lumen catheter is pre sent on the right. IMPRESSION: 1. Clinical correlation recommended for volume overload or congestive heart failure. 2. Small bilateral pleural effusions.
[2024-02-11 19:58] LABS: Glucose,Whole Blood 223 mg/dL (70-110)
[2024-02-11] MEDS: IPRATROPIUM-ALBUTEROL 3 ML NEB INHALATION PRN (20:59)
[2024-02-12 06:10] LABS: Glucose,Whole Blood 209 mg/dL (70-110)
[2024-02-12 08:21] LABS: ALT <6 U/L (4-34); AST 24 U/L (14-36); African American GFR (CKD) 16 (>60 ml/min/1.73 sqM); Albumin 2.3 g/dL (3.5-5.0); Alkaline Phosphatase 117 U/L (38-126); Anion Gap 5 mmol/L; Blood Urea Nitrogen 27 mg/dL (7-17); Calcium 8.1 mg/dL (8.4-10.2); Carbon Dioxide 28 mmol/L (22-30); Chloride 104 mmol/L (98-107); Glucose 203 mg/dL (74-99); Non-African American GFR(CKD) 14 (>60 ml/min/1.73 sqM); Potassium 3.7 mmol/L (3.5-5.1); Sodium 137 mmol/L (137-145); Total Bilirubin 0.3 mg/dL (0.2-1.3); Total Protein 5.7 g/dL (6.3-8.2)
[2024-02-12 08:22] VITALS: RESP 16
[2024-02-12 08:26] LABS: Anisocytosis Slight; Basophils # (A) 0.1 k/uL (0-0.2); Basophils % (A) 1 %; Eosinophils # (A) 0.1 k/uL (0-0.7); Eosinophils % (A) 1 %; HCT 25.9 % (34.0-46.0); HGB 7.9 gm/dL (11.4-16.0); Hypochromasia Marked; Lymphocytes # (A) 1.2 k/uL (1.0-4.8); Lymphocytes % (A) 14 %; MCH 29.4 pg (25.0-35.0); MCHC 30.4 g/dL (31.0-37.0); Macrocytosis Slight; Mean Platelet Volume 7.5; Monocytes # (A) 0.4 k/uL (0-1.0); Monocytes % (A) 5 %; Neutrophils # (A) 6.6 k/uL (1.3-7.7); Neutrophils % (A) 78 %; Platelet Count 271 k/uL (150-450); RBC 2.67 m/uL (3.80-5.40); RDW 16.9 % (11.5-15.5); WBC 8.5 k/uL (3.8-10.6)
--- NOTE | 2024-02-12 08:30 | P.DS ---
Providers Date of admission: 02/09/24 17:17 Attending physician: Antonio Steiner Consults: 02/09/24 21:20 Consult Physician Routine Consulting Provider: Obdulia Gar Consult Reason/Comments: known HD pt Do you want consulting provider notified?: Yes, Notify in am Primary care physician: Antonio Steiner [facility] Course: HISTORY OF PRESENT ILLNESS: 78-year-old female from [facility] with history of end-stage renal disease was started on hemodialysis with her last admission In late December early January 2024, has been on hemodialysis 3 times a week on the [facility]. Also has a longstanding history of type 2 diabetes, chronic anemia, Alzheimer disease, recurrent UTI, chronic neuropathy with prior history of pelvic fracture and chronic pelvic pain syndrome. Was hospitalized last time with worsening confusion and altered mental status with severe encephalopathy. She found to have elevated troponin with possible non-STEMI. Worsening confusion with worsening acute kidney injury having end-stage renal disease requiring hemodialysis 3 times a week. Also history of hyperkalemia with recurrent UTI with recurrent left shoulder pain with previous history of pelvic ramus fracture. Also had history of chronic anemia with last admission had worsening anemia with GI bleed requiring EGD found to have esophagitis and gastritis. Patient was treated complete home hospitalization with multiple complication and ended up making it to [facility] on 01/22/2024 the plan is for she was hospitalized from October 30 to November 02, 2023. Sadly in the last 2 weeks patient has been having severe anemia with hemoglobin running below 7 she was sent to the emergency department on the and despite the hemoglobin was below 7 at the time was around 6.7 found to be 7.4 in the emergency room and she was sent back to [facility]. Patient was doing hemodialysis today which she found to have hemoglobin of 5.8 patient was more confused having fatigue weakness tiredness challenging blood pressure could not complete her dialysis with sent from the dialysis center to the emergency department [facility] where was seen and evaluated her hemoglobin initially was 5.8 and repeat after 2 hours to be around 6.1 with hematocrit of 20.3. Arrangement for blood transfusion was made and patient was hospitalized look for any acute GI bleed or any positive Hemoccult at this point also patient be seen nephrology will continue hemodialysis while in-house. 02/10/2024: Patient had 1 unit of blood transfusion last time hemoglobin is up to 7.1, he is going dialysis today, still have swelling in the left upper extremity will be doing Doppler today. Patient still on IV antibiotic resume Rocephin 2 g daily still for at least another 1 week. Still have PICC line in the right upper extremity been used for the purpose. No active sign of GI bleed no bloody or black stool and no nausea or vomiting at any time. Patient had a GI study last time. 02/11/2024: Patient was able to complete her dialysis yesterday, hemoglobin after 2 units of blood transfusion is up to 8.1, no sign of GI bleed at this point. She was having slight swelling in the left upper extremity Doppler of the upper extremity did not show any DVT, Her mobility is still limited we will continue physical therapy at this point the patient is stable hopefully she will go back to [facility] tomorrow. 02/12/2024: Patient continues to have slight shortness of breath, still on updraft treatment, chest x-ray shows more sign of congestive heart failure, patient with be due for dialysis this morning still waiting for her hemoglobin to decide if she needs any more blood otherwise hopefully after complete her hemodialysis today if her hemoglobin still above 7 she will be able to go back to [facility] today. She will require to have a CBC tested twice a week and further workup with gastroenterology might need to be done even the last time was about 6 weeks ago. Patient is still on IV antibiotic for her infected left shoulder. REVIEW OF SYSTEMS: CONSTITUTIONAL: Elderly quite confused does not look in any respiratory distress. EYES: No icterus sclerae, no conjunctivitis. EARS, NOSE, MOUTH, THROAT, and FACE: No sore throat, lymphadenopathy, carotid bruits or deformity. RESPIRATORY: Mild shortness of breath no cough or wheezes. CARDIOVASCULAR: Positive PND orthopnea palpitation no angina.. GASTROINTESTINAL: No Abd pain, Nausea or vomiting, no Diarrhea or constipation, No GI Bleed, no distention or masses. Slight increase heartburn. GENITOURINARY: Negative for Hematuria or UTI, no kidney stones. INTEGUMENT/BREAST: Negative for any muscular injury with mild osteoarthritis.. HEMATOLOGIC/LYMPHATIC: Chronic anemia with no bleeding. MUSCULOSKELTAL: Still have slight swelling discomfort and lymphedema in the left upper extremity and shoulder area. NEURLOGICAL: Confusion and worsening memory. BEHAVIORAL/PSYCH: Negative. ENDOCRINE: Negative. PHYSICAL EXAMINATION: General Appearance: Elderly laying in bed mildly confused does not look in any respiratory distress. Neck HEENT: Supple, no lymphadenopathy, no thyroid enlargement, no carotid bruits. Lungs: Decreased breath sound bilaterally with fine rhonchi positive mild expiratory wheezes. Chest Wall: Decreased expansion with deep inspiration no tenderness and no deformity was found on exam, no costochondral pain or discomfort. Heart: Regular rate and rhythm, S1, S2 slight tachycardia. No rub. Back: Symmetric, no curvature, ROM normal, no CVA tenderness. Abdomen: Soft, non-tender, bowel sounds active all four quadrants, no masses, no organomegaly. Slight epigastric discomfort. Extremities: Has quite with discomfort and swelling with lymphedema on the left upper extremity still have slight discomfort in the right hip area. Pulses: 2+ and symmetric. Skin: Skin color, texture, tugor normal, no rashes or lesions. Neurologic: Alert oriented with slight confusion, slight resting tremor and mild rigidity. Cranial nerves II through XII intact, generalized weakness with abnormal balance and gait. ASSESSMENT AND PLAN: _Acute symptomatic anemia: Post unit of blood transfusion she is up to 8.1 doing well repeat CBC tomorrow morning. _ Worsening shortness of breath and dyspnea: Combination of severe anemia along with diastolic congestive heart failure. Chest x-ray is more positive for fluid overload so hopefully with dialysis will help to correct it. _End-stage renal disease on hemodialysis 3 times a week with hemodialysis need to be continue this time could not finish dialysis today because of the severity of her anemia. _History of recent type II non-STEMI: Still on medical management doing well. No chest pain or angina. _Recent history of left shoulder septic joint with MSSA was treated post I&D was continue on IV antibiotic with Rocephin 2 g daily for 3 weeks. Will continue IV Rocephin while patient is in the hospital. Still will continue antibiotic for another week continue to do sed rate CRP and CBC weekly. _Lymphedema on the left upper extremity: Patient be going for Doppler to exclude possibility of DVT. No sign of DVT probably arm elevation and diuretics might be helpful. _Hypertension: Continue Norvasc 5 mg a day we will titrate dose higher if needed. _Type 2 diabetes: Has been on NovoLog per sliding scales on Levemir long-acting will watch for any hypoglycemia. _Parkinson disease: Has been on carbidopa-levodopa resume medication. _Alzheimer disease and worsening memory: Has not been on any medication but still controlling her symptoms patient has no compatible or any behavioral issues. _Hypothyroidism: Continue levothyroxine 100 mcg daily. _Hyperlipidemia: Remain on simvastatin 80 mg daily. _Recurrent urinary tract infection: Was on Rocephin 2 g IV daily. UA culture will be done and treat if needed. _Hemodialysis to be done today, repeat CBC and transfuse 1 more unit of blood if patient still running in the low 7. Prognosis: Fair. Discharge planning: She will return back to [facility] after hemodialysis today. Hospital course: Patient was hospitalized with severe anemia with hemoglobin at 5.6, patient blood count has been dropping down gradually no workup done in the ER more than CBC Hemoccult was order never completed patient is not in any active GI bleed she had 2 unit of blood transfusion correct her hemoglobin to the high 7. Patient initiated back on dialysis and continue her IV antibiotic via PICC line on the right arm. She is doing slightly better continue to have slight twinge of shortness of breath mostly from fluid overload chest x-ray from last night consistent with more heart failure patient dialysis today probably remove more fluid and help her out. If she is stable today will return tomorrow with after her dialysis specially if her hemoglobin still above 7 and she required to have a CBC done at least twice a week for the next few weeks if further drop in hemoglobin she will need probably full GI workup including upper, small intestinal capsule endoscopy and lower with colonoscopy. Her initial workup initially from 6 weeks ago came back to be negative with exception of severe gastritis which patient currently still on PPI for it. Time spent on discharging patient was over 40 minutes. Patient Condition at Discharge: Fair Plan - Discharge Summary Discharge Rx Participant: No New Discharge Prescriptions: New Darbepoetin Nikolas [Aranesp] 60 mcg SQ Q7D each Ipratropium-Albuterol Nebulize [Duoneb 0.5 mg-3 mg/3 ml Soln] 3 ml INHALATION RT-QID PRN each PRN Reason: Shortness Of Breath Or Wheezing Continue Levothyroxine Sodium 100 mcg PO MOTUWETHFRSA@0600 cefTRIAXone [Rocephin] 2 gm IVPB Q24HR #30 each bisacodyL [Dulcolax] 10 mg RECTAL DAILY PRN PRN Reason: Constipation Pantoprazole [Protonix] 40 mg PO BID@0800,1700 Calcium Carbonate [Tums] 500 mg PO BID@0800,1700 Cyanocobalamin [Vitamin B-12] 1,000 mcg PO DAILY@0800 Ascorbic Acid [Vitamin C] 500 mg PO DAILY@0800 Nepro 237 ml PO TUTHSA@0600 Nepro 120 ml PO SUMOWEFR@0800 Magnesium Oxide [Mag-Ox] 400 mg PO DAILY@0800 Levothyroxine Sodium [Synthroid] 50 mcg PO CALABRESE@0600 Potassium Chloride [Klor-Con 10 ER] 10 meq PO DAILY@0800 Citalopram Hydrobromide [CeleXA] 20 mg PO DAILY@0800 Acetaminophen Tab [Tylenol] 500 mg PO Q6H PRN PRN Reason: Pain Simvastatin [Zocor] 80 mg PO DAILY@0800 Aspirin EC [Ecotrin Low Dose] 81 mg PO DAILY@0800 Carbidopa-Levodopa 25-100 mg [Sinemet 25-100 mg] 1 tab PO QID Ferrous Sulfate [Iron (65 MG Elemental)] 325 mg PO DAILY@0800 Mirtazapine [Remeron] 7.5 mg PO HS tab INSULIN ASPART (NovoLOG) [NovoLOG (formulary)] See Protocol SQ ACHS Nepro 120 ml PO BID@1200,1700 Lacosamide 100 mg PO BID@0800,2100 Nephro-Oralia 1mg 1 tab PO DAILY@0800 polyethylene glycoL 3350 [Miralax] 17 gm PO DAILY@0800 Melatonin 1 mg PO HS Furosemide [Lasix] 60 mg PO DAILY@0600 amLODIPine [Norvasc] 5 mg PO DAILY@0800 Discharge Medication List Acetaminophen Tab [Tylenol] 500 mg PO Q6H PRN 07/27/22 [History] Aspirin EC [Ecotrin Low Dose] 81 mg PO DAILY@0800 07/27/22 [History] Levothyroxine Sodium 100 mcg PO MOTUWETHFRSA@0600 07/27/22 [History] Simvastatin [Zocor] 80 mg PO DAILY@0800 07/27/22 [History] Carbidopa-Levodopa 25-100 mg [Sinemet 25-100 mg] 1 tab PO QID 10/30/23 [History] Ferrous Sulfate [Iron (65 MG Elemental)] 325 mg PO DAILY@0800 01/04/24 [History] Mirtazapine [Remeron] 7.5 mg PO HS tab 01/22/24 [Rx] cefTRIAXone [Rocephin] 2 gm IVPB Q24HR #30 each 01/22/24 [Rx] Ascorbic Acid [Vitamin C] 500 mg PO DAILY@0800 02/09/24 [History] Calcium Carbonate [Tums] 500 mg PO BID@0800,1700 02/09/24 [History] Citalopram Hydrobromide [CeleXA] 20 mg PO DAILY@0800 02/09/24 [History] Cyanocobalamin [Vitamin B-12] 1,000 mcg PO DAILY@0800 02/09/24 [History] Furosemide [Lasix] 60 mg PO DAILY@0600 02/09/24 [History] INSULIN ASPART (NovoLOG) [NovoLOG (formulary)] See Protocol SQ ACHS 02/09/24 [History] Lacosamide 100 mg PO BID@0800,2100 02/09/24 [History] Levothyroxine Sodium [Synthroid] 50 mcg PO CALABRESE@0600 02/09/24 [History] Magnesium Oxide [Mag-Ox] 400 mg PO DAILY@0800 02/09/24 [History] Melatonin 1 mg PO HS 02/09/24 [History] Nephro-Oralia 1mg 1 tab PO DAILY@0800 02/09/24 [History] Nepro 120 ml PO BID@1200,1700 02/09/24 [History] Nepro 120 ml PO SUMOWEFR@0800 02/09/24 [History] Nepro 237 ml PO TUTHSA@0600 02/09/24 [History] Pantoprazole [Protonix] 40 mg PO BID@0800,1700 02/09/24 [History] Potassium Chloride [Klor-Con 10 ER] 10 meq PO DAILY@0800 02/09/24 [History] amLODIPine [Norvasc] 5 mg PO DAILY@0800 02/09/24 [History] bisacodyL [Dulcolax] 10 mg RECTAL DAILY PRN 02/09/24 [History] polyethylene glycoL 3350 [Miralax] 17 gm PO DAILY@0800 02/09/24 [History] Darbepoetin Nikolas [Aranesp] 60 mcg SQ Q7D each 02/12/24 [Rx] Ipratropium-Albuterol Nebulize [Duoneb 0.5 mg-3 mg/3 ml Soln] 3 ml INHALATION RT-QID PRN each 02/12/24 [Rx] Follow up Appointment(s)/Referral(s): Obdulia Gar MD [STAFF PHYSICIAN] - 1 Week Antonio Steiner MD [Primary Care Provider] - 1-2 days Trisha Franco MD [STAFF PHYSICIAN] - 1 Week Discharge Disposition: TRANSFER TO SNF/ECF
--- NOTE | 2024-02-12 10:06 | P.PN ---
Subjective patient is seen for follow-up for hemodialysis dependent acute kidney injury. She is currently maintained on a Monday schedule. No active bleeding noted. hemoglobin at 7.9 today. No significant complaints Objective - Vital Signs Vital signs: Vital Signs Temp 97.8 F 02/12/24 07:53 Pulse 88 02/12/24 07:53 Resp 16 02/12/24 07:53 BP 115/55 02/12/24 07:53 Pulse Ox 92 L 02/12/24 07:53 FiO2 Intake & Output 02/11/24 02/12/24 02/12/24 18:59 06:59 18:59 Intake Total 120 10 Output Total 0 250 Balance 120 -250 10 Intake: IV 10 Invasive Line 1 10 Oral 120 Output: Gastric Drainage 0 Urine 0 250 Stool 0 0 Urine/Stool Mix 0 Emesis 0 Oral Regurgitation 0 Other 0 Other: # Voids 1 # Bowel Movements 1 - Exam patient is awake, comfortable, no acute distress Examination of the heart S1 and S2 Examination lungs bilateral breath sounds are heard Abdomen is soft nontender Examination of the lower extremities shows trace edema. Left upper extremity with significant edema. [employer] exam grossly intact - Labs CBC & Chem 7: 02/12/24 07:19 02/12/24 07:19 Labs: Abnormal Lab Results - Last 24 Hours (Table) 02/11/24 02/11/24 02/11/24 Range/Units 09:08 09:08 11:22 RBC 2.69 L (3.80-5.40) m/uL Hgb 7.8 L (11.4-16.0) gm/dL Hct 25.5 L (34.0-46.0) % MCHC 30.8 L (31.0-37.0) g/dL RDW 16.9 H (11.5-15.5) % Carbon Dioxide 31 H (22-30) mmol/L BUN (7-17) mg/dL Creatinine 2.29 H (0.52-1.04) mg/dL Glucose 120 H (74-99) mg/dL POC Glucose (mg/dL) 157 H (70-110) mg/dL Calcium 7.7 L (8.4-10.2) mg/dL Total Protein 5.9 L (6.3-8.2) g/dL Albumin 2.4 L (3.5-5.0) g/dL 02/11/24 02/11/24 02/12/24 Range/Units 16:17 19:57 06:08 RBC (3.80-5.40) m/uL Hgb (11.4-16.0) gm/dL Hct (34.0-46.0) % MCHC (31.0-37.0) g/dL RDW (11.5-15.5) % Carbon Dioxide (22-30) mmol/L BUN (7-17) mg/dL Creatinine (0.52-1.04) mg/dL Glucose (74-99) mg/dL POC Glucose (mg/dL) 177 H 223 H 209 H (70-110) mg/dL Calcium (8.4-10.2) mg/dL Total Protein (6.3-8.2) g/dL Albumin (3.5-5.0) g/dL 02/12/24 02/12/24 Range/Units 07:19 07:19 RBC 2.67 L (3.80-5.40) m/uL Hgb 7.9 L (11.4-16.0) gm/dL Hct 25.9 L (34.0-46.0) % MCHC 30.4 L (31.0-37.0) g/dL RDW 16.9 H (11.5-15.5) % Carbon Dioxide (22-30) mmol/L BUN 27 H (7-17) mg/dL Creatinine 2.99 H (0.52-1.04) mg/dL Glucose 203 H (74-99) mg/dL POC Glucose (mg/dL) (70-110) mg/dL Calcium 8.1 L (8.4-10.2) mg/dL Total Protein 5.7 L (6.3-8.2) g/dL Albumin 2.3 L (3.5-5.0) g/dL Assessment and Plan Assessment: 1. Acute kidney injury currently hemodialysis dependent. Patient remains oliguric. She is maintained on Monday schedule. 2. Asymptomatic anemia most likely from GI bleed. Status post EGD during her last admission which showed hiatal hernia and esophagitis. Status post packed RBCs transfusion. no active bleeding noted. 3. History of left shoulder septic arthritis maintained on antibiotics 4. History of recent non-ST elevation CA 5. History of dementia 6. Left arm swelling with no evidence of DVT. Maintained on antibiotics for left shoulder septic arthritis. improved. Plan: continue antibiotics Maintain hemodialysis on Monday schedule Continue with daily Lasix. Urine output remains low
[2024-02-12 11:21] LABS: Glucose,Whole Blood 242 mg/dL (70-110)
[2024-02-12 12:45] VITALS: BP 113/56; PULSE 89; TEMP 97.6
== END 2024-02-12 13:40 ==
LOC: EC 14:49 → 3SCARD 17:17 → INTOOBSV 17:17 → 3SCARD 17:54 → UNDODISIN 02-12 13:40
PROVIDERS: ADMIT Internal Medicine Geriatric Medicine; ATTEND Internal Medicine Geriatric Medicine
PROC: 30233N1 Transfusion of Nonautologous Red Blood Cells into Peripheral Vein, Percutaneous Approach (ICD-10-PCS; principal; 2024-02-09)
PROC: 5A1D70Z Performance of Urinary Filtration, Intermittent, Less than 6 Hours Per Day (ICD-10-PCS; 2024-02-10)
DX: D50.9 Iron deficiency anemia, unspecified (principal); N17.9 Acute kidney failure, unspecified; I13.2 Hypertensive heart and chronic kidney disease with heart failure and with stage 5 chronic kidney disease, or end stage renal disease; N18.6 End stage renal disease; B95.61 Methicillin susceptible Staphylococcus aureus infection as the cause of diseases classified elsewhere; I50.32 Chronic diastolic (congestive) heart failure; D63.1 Anemia in chronic kidney disease; E11.22 Type 2 diabetes mellitus with diabetic chronic kidney disease; G30.9 Alzheimer's disease, unspecified; F02.83 Dementia in other diseases classified elsewhere, unspecified severity, with mood disturbance; E11.40 Type 2 diabetes mellitus with diabetic neuropathy, unspecified; M00.9 Pyogenic arthritis, unspecified; E03.9 Hypothyroidism, unspecified; E78.5 Hyperlipidemia, unspecified; G20.A1 Parkinson's disease without dyskinesia, without mention of fluctuations; E66.9 Obesity, unspecified; Z68.27 Body mass index [BMI] 27.0-27.9, adult; I89.0 Lymphedema, not elsewhere classified; K44.9 Diaphragmatic hernia without obstruction or gangrene; K20.90 Esophagitis, unspecified without bleeding; K29.70 Gastritis, unspecified, without bleeding; I25.2 Old myocardial infarction; Z99.2 Dependence on renal dialysis; G89.4 Chronic pain syndrome; Z79.82 Long term (current) use of aspirin; Z79.890 Hormone replacement therapy; Z79.4 Long term (current) use of insulin; Z79.2 Long term (current) use of antibiotics; Z79.899 Other long term (current) drug therapy; Z91.010 Allergy to peanuts; Z87.440 Personal history of urinary (tract) infections
CPT/HCPCS: 96365; 96366 ×2; 96372; 36430; 99291; 36415; 94640; 97162; 97166; 86900; 86901; 80053 ×4; 83735; 84100; 85025 ×2; 85027 ×2; 85610; 85730; 86850; 86920; 71045; 93971; G0257; G0378 ×4; P9016; J0696 ×3; J0881; 90935

== ENCOUNTER 2024-02-22 13:32 | Emergency (ER) | payer MEDICARE ==
--- NOTE | 2024-02-22 14:22 | ED ---
General Adult HPI - General Chief complaint: Recheck/Abnormal Lab/Rx Stated complaint: Abn Labs Time Seen by Provider: 02/22/24 13:50 Source: patient, EMS, RN notes reviewed Mode of arrival: EMS Limitations: no limitations, altered mental status, physical limitation - History of Present Illness Initial comments: This is a 78-year-old female with history of dementia and end-stage renal disease who presents to the emergency department chief complaint of abnormal labs. Patient is a poor historian and is unaware why she is in the emergency department at this time due to her baseline mentation of dementia. Review of patient's packet information from [facility], patient follows with Dr. Steiner, patient's hemoglobin was noted to be 7.3 from CBC on 02/21/24 and recommend she receive a 1 unit of packed red blood cells due to her currently being on dialysis. Patient has no other acute symptoms at this time. - Related Data Home Medications Medication Instructions Recorded Confirmed Acetaminophen Tab [Tylenol] 500 mg PO Q6H PRN 07/27/22 02/22/24 Aspirin EC [Ecotrin Low Dose] 81 mg PO DAILY@79907/27/22 02/22/24 Levothyroxine Sodium 100 mcg PO MOTUWETHFRSA@0607/27/22 02/22/24 Simvastatin [Zocor] 80 mg PO DAILY@79907/27/22 02/22/24 Carbidopa-Levodopa 25-100 mg 1 tab PO QID 10/30/23 02/22/24 [Sinemet 25-100 mg] Ferrous Sulfate [Iron (65 MG 325 mg PO DAILY@79901/04/24 02/22/24 Elemental)] Ascorbic Acid [Vitamin C] 500 mg PO DAILY@79902/09/24 02/22/24 Calcium Carbonate [Tums] 500 mg PO BID@0800,1700 02/09/24 02/22/24 Citalopram Hydrobromide [CeleXA] 20 mg PO DAILY@79902/09/24 02/22/24 Cyanocobalamin [Vitamin B-12] 1,000 mcg PO DAILY@0800 02/09/24 02/22/24 Furosemide [Lasix] 60 mg PO DAILY@0802/09/24 02/22/24 INSULIN ASPART (NovoLOG) [NovoLOG See Protocol SQ ACHS 02/09/24 02/22/24 (formulary)] Lacosamide 100 mg PO BID@0800,2100 02/09/24 02/22/24 Levothyroxine Sodium [Synthroid] 50 mcg PO CALABRESE@0600 02/09/24 02/22/24 Magnesium Oxide [Mag-Ox] 400 mg PO DAILY@0800 02/09/24 02/22/24 Melatonin 1 mg PO HS 02/09/24 02/22/24 Nephro-Oralia 1mg 1 tab PO DAILY@0800 02/09/24 02/22/24 Nepro 120 ml PO BID@1200,1700 02/09/24 02/22/24 Nepro 120 ml PO SUMOWEFR@0800 02/09/24 02/22/24 Nepro 237 ml PO TUTHSA@0600 02/09/24 02/22/24 Pantoprazole [Protonix] 40 mg PO BID@0800,1700 02/09/24 02/22/24 amLODIPine [Norvasc] 5 mg PO DAILY@0800 02/09/24 02/22/24 bisacodyL [Dulcolax] 10 mg RECTAL DAILY PRN 02/09/24 02/22/24 polyethylene glycoL 3350 [Miralax] 17 gm PO DAILY@0800 02/09/24 02/22/24 Ipratropium-Albuterol Nebulize 3 ml INHALATION RT-Q6H PRN 02/22/24 02/22/24 [Duoneb 0.5 mg-3 mg/3 ml Soln] Methoxy Peg-Epoetin Beta [Mircera] 100 mcg SQ Q14D 02/22/24 02/22/24 Previous Rx's Medication Instructions Recorded Mirtazapine [Remeron] 7.5 mg PO HS tab 01/22/24 cefTRIAXone [Rocephin] 2 gm IVPB Q24HR #30 each 01/22/24 Allergies Allergy/AdvReac Type Severity Reaction Status Date / Time peanut AdvReac "Watery Verified 02/22/24 16:44 eyes" Review of Systems ROS Statement: Those systems with pertinent positive or pertinent negative responses have been documented in the HPI. ROS Other: All systems not noted in ROS Statement are negative. Past Medical History Past Medical History: Dementia, Diabetes Mellitus, Hyperlipidemia, Hypertension, Thyroid Disorder History of Any Multi-Drug Resistant Organisms: None Reported Date of last positivie culture/infection: 01/04/24 MDRO Source:: Urine Past Surgical History: Unable to Obtain Past Anesthesia/Blood Transfusion Reactions: No Reported Reaction Past Psychological History: Depression Smoking Status: Never smoker Past Alcohol Use History: None Reported Past Drug Use History: None Reported - Past Family History Brother(s) Additional Family Medical History / Comment(s): Unable to obtain due to patient's underlying dementia General Exam Limitations: no limitations, altered mental status, physical limitation General appearance: alert, in no apparent distress Head exam: Present: atraumatic, normocephalic, normal inspection Eye exam: Present: normal appearance, PERRL, EOMI. Absent: scleral icterus, conjunctival injection, periorbital swelling ENT exam: Present: normal exam, mucous membranes moist Neck exam: Present: normal inspection. Absent: tenderness, meningismus, lymphadenopathy Respiratory exam: Present: normal lung sounds bilaterally. Absent: respiratory distress, wheezes, rales, rhonchi, stridor Cardiovascular Exam: Present: regular rate, normal rhythm, normal heart sounds. Absent: systolic murmur, diastolic murmur, rubs, gallop, clicks GI/Abdominal exam: Present: soft, normal bowel sounds. Absent: distended, tenderness, guarding, rebound, rigid Extremities exam: Present: normal inspection, full ROM (passive ROM, patient with limited muscle strength), normal capillary refill. Absent: tenderness, pedal edema, joint swelling, calf tenderness Back exam: Present: normal inspection Neurological exam: Present: alert, oriented X3, CN II-XII intact Psychiatric exam: Present: normal affect, normal mood Skin exam: Present: warm, dry, intact, normal color, other (decubitus pressure ulcer, covered with bandage). Absent: rash Course Vital Signs 02/22/24 02/22/24 02/22/24 13:42 17:17 17:34 Temperature 97.7 F 98.2 F 98.1 F Pulse Rate 88 82 84 Respiratory 16 18 18 Rate Blood Pressure 122/87 138/63 O2 Sat by Pulse 97 99 99 Oximetry 02/22/24 02/22/24 17:54 18:35 Temperature 98.0 F 98.2 F Pulse Rate 83 81 Respiratory 18 18 Rate Blood Pressure 140/63 133/61 O2 Sat by Pulse 100 98 Oximetry Medical Decision Making - Medical Decision Making Was pt. sent in by a medical professional or institution (TERELL Thacker, PIGGYBACK CLERK, urgent care, hospital, or snf...) When possible be specific @ -No Did you speak to anyone other than the patient for history (EMS, parent, family, police, friend...)? What history was obtained from this source @ -No Did you review nursing and triage notes (agree or disagree)? Why? @ -I reviewed and agree with nursing and triage notes Were old charts reviewed (outside hosp., previous admission, EMS record, old EKG, old radiological studies, urgent care reports/EKG's, snf records)? Report findings @ -Previous hospital visits were reviewed revealing a low hemoglobin in addition to increased BUN and creatinine levels. Differential Diagnosis (chest pain, altered mental status, abdominal pain women, abdominal pain men, vaginal bleeding, weakness, fever, dyspnea, syncope, headache, dizziness, GI bleed, back pain, seizure, CVA, palpatations, mental health, musculoskeletal)? @ -Differential Weakness: Hypoglycemia, shock, sepsis, hyponatremia, anemia, infection, MA, ETOH, adverse medicine reaction, overdose, stroke, this is not meant to be an all-inclusive list. EKG interpreted by me (3pts min.). @ -Completed at 1451, sinus rhythm, ventricular rate 85, MO interval 144, QTc 426. No acute signs of ischemia. X-rays interpreted by me (1pt min.). @ -None done CT interpreted by me (1pt min.). @ -None done U/S interpreted by me (1pt. min.). @ -None done What testing was considered but not performed or refused? (CT, X-rays, U/S, labs)? Why? @ -None What meds were considered but not given or refused? Why? @ -None Did you discuss the management of the patient with other professionals (professionals i.e. TERELL Thacker, PIGGYBACK CLERK, lab, RT, psych nurse, community mental health social worker, information technology administrator, teacher, senior major gifts officer, director of casework services)? Give summary @ -No Was smoking cessation discussed for >3mins.? @ -No Was critical care preformed (if so, how long)? @ -No Were there social determinants of health that impacted care today? How? (Homelessness, low income, unemployed, alcoholism, drug addiction, transportation, low edu. Level, literacy, decrease access to med. care, [facility], rehab)? @ -No Was there de-escalation of care discussed even if they declined (Discuss DNR or withdrawal of care, Hospice)? DNR status @ -No What co-morbidities impacted this encounter? (DM, HTN, Smoking, COPD, CAD, Cancer, CVA, ARF, Chemo, Hep., AIDS, mental health diagnosis, sleep apnea, morbid obesity)? @ -CKD, dementia Was patient admitted / discharged? Hospital course, mention meds given and route, prescriptions, significant lab abnormalities, going to OR and other pertinent info. @ -Discharge. 78-year-old female with complaint of abnormal labs and a low hemoglobin. On discussion with the patient she is in no acute distress. Complete physical examination of the patient with no acute findings at this time. Patient's laboratory results revealed Hemoglobin of 7.5 and hematocrit 23.8. CMP remarkable for hyponatremia of 136, hypokalemia 3.0, BUN 5 and creatinine 1.19. Patient was given oral potassium supplementation in addition to 1 unit of packed red blood cells. Due to patient being asymptomatic after transfusion of blood cell she is stable for discharge back to [facility] at this time. Discussed with Dr. Fu Undiagnosed new problem with uncertain prognosis? @ -No Drug Therapy requiring intensive monitoring for toxicity (Heparin, Nitro, Insulin, Cardizem)? @ -No Were any procedures done? @ -No Diagnosis/symptom? @ -anemia of chronic disease, low hgb Acute, or Chronic, or Acute on Chronic? @ -acute on chronic Uncomplicated (without systemic symptoms) or Complicated (systemic symptoms)? @ -complicated Side effects of treatment? @ -No Exacerbation, Progression, or Severe Exacerbation? @ -No Poses a threat to life or bodily function? How? (Chest pain, USA, MA, pneumonia, PE, COPD, DKA, ARF, appy, cholecystitis, CVA, Diverticulitis, Homicidal, Suicidal, threat to staff... and all critical care pts) @ -Unlikely at this time - Lab Data Result diagrams: 02/22/24 15:00 02/22/24 15:00 Lab Results 02/22/24 02/22/24 02/22/24 Range/Units 15:00 15:00 15:00 WBC 10.7 H (3.8-10.6) k/uL RBC 2.52 L (3.80-5.40) m/uL Hgb 7.5 L (11.4-16.0) gm/dL Hct 23.8 L (34.0-46.0) % MCV 94.5 (80.0-100.0) fL MCH 29.7 (25.0-35.0) pg MCHC 31.4 (31.0-37.0) g/dL RDW 18.1 H (11.5-15.5) % Plt Count 259 (150-450) k/uL MPV 7.4 Neutrophils % 77 % Lymphocytes % 14 % Monocytes % 5 % Eosinophils % 2 % Basophils % 1 % Neutrophils # 8.3 H (1.3-7.7) k/uL Lymphocytes # 1.5 (1.0-4.8) k/uL Monocytes # 0.6 (0-1.0) k/uL Eosinophils # 0.2 (0-0.7) k/uL Basophils # 0.1 (0-0.2) k/uL Hypochromasia Slight Anisocytosis Slight PT 10.3 (10.0-12.5) sec INR 0.9 (<1.2) Sodium 136 L (137-145) mmol/L Potassium 3.0 L (3.5-5.1) mmol/L Chloride 98 (98-107) mmol/L Carbon Dioxide 36 H (22-30) mmol/L Anion Gap 2 mmol/L BUN 5 L (7-17) mg/dL Creatinine 1.19 H (0.52-1.04) mg/dL Est GFR (CKD-EPI)AfAm 50 (>60 ml/min/1.73 sqM) Est GFR (CKD-EPI)NonAf 44 (>60 ml/min/1.73 sqM) Glucose 183 H (74-99) mg/dL Calcium 7.9 L (8.4-10.2) mg/dL Total Bilirubin 0.4 (0.2-1.3) mg/dL AST 25 (14-36) U/L ALT 6 (4-34) U/L Alkaline Phosphatase 110 (38-126) U/L Total Protein 6.3 (6.3-8.2) g/dL Albumin 2.7 L (3.5-5.0) g/dL Blood Type Blood Type Recheck Bld Type Recheck Status Antibody Screen Crossmatch Spec Expiration Date 02/22/24 Range/Units 15:00 WBC (3.8-10.6) k/uL RBC (3.80-5.40) m/uL Hgb (11.4-16.0) gm/dL Hct (34.0-46.0) % MCV (80.0-100.0) fL MCH (25.0-35.0) pg MCHC (31.0-37.0) g/dL RDW (11.5-15.5) % Plt Count (150-450) k/uL MPV Neutrophils % % Lymphocytes % % Monocytes % % Eosinophils % % Basophils % % Neutrophils # (1.3-7.7) k/uL Lymphocytes # (1.0-4.8) k/uL Monocytes # (0-1.0) k/uL Eosinophils # (0-0.7) k/uL Basophils # (0-0.2) k/uL Hypochromasia Anisocytosis PT (10.0-12.5) sec INR (<1.2) Sodium (137-145) mmol/L Potassium (3.5-5.1) mmol/L Chloride (98-107) mmol/L Carbon Dioxide (22-30) mmol/L Anion Gap mmol/L BUN (7-17) mg/dL Creatinine (0.52-1.04) mg/dL Est GFR (CKD-EPI)AfAm (>60 ml/min/1.73 sqM) Est GFR (CKD-EPI)NonAf (>60 ml/min/1.73 sqM) Glucose (74-99) mg/dL Calcium (8.4-10.2) mg/dL Total Bilirubin (0.2-1.3) mg/dL AST (14-36) U/L ALT (4-34) U/L Alkaline Phosphatase (38-126) U/L Total Protein (6.3-8.2) g/dL Albumin (3.5-5.0) g/dL Blood Type O Negative Blood Type Recheck O Neg Bld Type Recheck Status No Antibody Screen NEGATIVE Crossmatch See Detail Spec Expiration Date 02/25/20242299 Disposition Clinical Impression: Anemia in chronic kidney disease (CKD), Dementia Narrative: Please return to the Emergency Department if symptoms worsen or any other concerns. Disposition: HOME SELF-CARE Condition: Good Instructions (If sedation given, give patient instructions): Chronic Kidney Disease (ED) Is patient prescribed a controlled substance at d/c from ED?: No Referrals: None,Stated [REFERRING] - 1-2 days Time of Disposition: 17:54
[2024-02-22 15:12] LABS: Anisocytosis Slight; Basophils # (A) 0.1 k/uL (0-0.2); Basophils % (A) 1 %; Eosinophils # (A) 0.2 k/uL (0-0.7); Eosinophils % (A) 2 %; HCT 23.8 % (34.0-46.0); HGB 7.5 gm/dL (11.4-16.0); Hypochromasia Slight; Lymphocytes # (A) 1.5 k/uL (1.0-4.8); Lymphocytes % (A) 14 %; MCH 29.7 pg (25.0-35.0); MCHC 31.4 g/dL (31.0-37.0); MCV 94.5 fL (80.0-100.0); Mean Platelet Volume 7.4; Monocytes # (A) 0.6 k/uL (0-1.0); Monocytes % (A) 5 %; Neutrophils # (A) 8.3 k/uL (1.3-7.7); Neutrophils % (A) 77 %; Platelet Count 259 k/uL (150-450); RBC 2.52 m/uL (3.80-5.40); RDW 18.1 % (11.5-15.5); WBC 10.7 k/uL (3.8-10.6)
[2024-02-22 15:21] LABS: INR 0.9 (<1.2); Prothrombin Time 10.3 sec (10.0-12.5)
[2024-02-22 15:43] LABS: ALT 6 U/L (4-34); AST 25 U/L (14-36); African American GFR (CKD) 50 (>60 ml/min/1.73 sqM); Albumin 2.7 g/dL (3.5-5.0); Alkaline Phosphatase 110 U/L (38-126); Anion Gap 2 mmol/L; Blood Urea Nitrogen 5 mg/dL (7-17); Calcium 7.9 mg/dL (8.4-10.2); Carbon Dioxide 36 mmol/L (22-30); Chloride 98 mmol/L (98-107); Glucose 183 mg/dL (74-99); Non-African American GFR(CKD) 44 (>60 ml/min/1.73 sqM); Sodium 136 mmol/L (137-145); Total Bilirubin 0.4 mg/dL (0.2-1.3); Total Protein 6.3 g/dL (6.3-8.2)
[2024-02-22 17:37] VITALS: RESP 18
[2024-02-22] MEDS: POTASSIUM CHLORIDE ER 20 MEQ TAB.ER PO STA (17:46)
[2024-02-22 20:01] VITALS: BP 138/74; PULSE 82; TEMP 97.8
== END 2024-02-22 21:40 | disposition home or self-care (01) ==
LOC: EC 13:32
DX: E11.22 Type 2 diabetes mellitus with diabetic chronic kidney disease (principal); I12.0 Hypertensive chronic kidney disease with stage 5 chronic kidney disease or end stage renal disease; N18.6 End stage renal disease; D63.1 Anemia in chronic kidney disease; F03.90 Unspecified dementia, unspecified severity, without behavioral disturbance, psychotic disturbance, mood disturbance, and anxiety; E87.1 Hypo-osmolality and hyponatremia; E87.6 Hypokalemia; Z91.010 Allergy to peanuts; Z99.2 Dependence on renal dialysis; Z79.4 Long term (current) use of insulin; Z79.899 Other long term (current) drug therapy
CPT/HCPCS: 36415; 93005; 86900; 86901; 80053; 85025; 85610; 86850; 86920; 99284; 36430; P9016

== ENCOUNTER 2024-04-11 16:26 | Inpatient (IN) | payer MEDICARE ==
[2024-04-11 18:48] LABS: Glucose,Whole Blood 100 mg/dL (70-110)
[2024-04-11 18:56] LABS: Basophils # (A) 0.1 k/uL (0-0.2); Basophils % (A) 1 %; Eosinophils # (A) 0.1 k/uL (0-0.7); Eosinophils % (A) 2 %; HCT 38.1 % (34.0-46.0); Lymphocytes # (A) 1.8 k/uL (1.0-4.8); Lymphocytes % (A) 23 %; MCH 30.4 pg (25.0-35.0); MCHC 32.3 g/dL (31.0-37.0); MCV 94.3 fL (80.0-100.0); Mean Platelet Volume 8.3; Monocytes # (A) 0.5 k/uL (0-1.0); Monocytes % (A) 6 %; Neutrophils # (A) 5.3 k/uL (1.3-7.7); Neutrophils % (A) 67 %; Platelet Count 290 k/uL (150-450); RBC 4.04 m/uL (3.80-5.40); RDW 15.1 % (11.5-15.5); WBC 7.9 k/uL (3.8-10.6)
[2024-04-11 19:03] LABS: HGB 12.3 gm/dL (11.4-16.0)
[2024-04-11 19:10] LABS: ALT 12 U/L (4-34); AST 56 U/L (14-36); African American GFR (CKD) 26 (>60 ml/min/1.73 sqM); Albumin 4.2 g/dL (3.5-5.0); Alcohol <10 mg/dL; Alkaline Phosphatase 114 U/L (38-126); Anion Gap 9 mmol/L; Blood Urea Nitrogen 13 mg/dL (7-17); Calcium 9.3 mg/dL (8.4-10.2); Carbon Dioxide 27 mmol/L (22-30); Chloride 101 mmol/L (98-107); Glucose 94 mg/dL (74-99); Non-African American GFR(CKD) 23 (>60 ml/min/1.73 sqM); Phosphorus 1.9 mg/dL (2.5-4.5); Potassium 4.7 mmol/L (3.5-5.1); Sodium 137 mmol/L (137-145); Total Bilirubin 0.6 mg/dL (0.2-1.3); Total Protein 8.1 g/dL (6.3-8.2)
[2024-04-11 19:11] LABS: INR 0.9 (<1.2); Partial Thromboplastin Time 26.5 sec (22.0-30.0); Prothrombin Time 10.4 sec (10.0-12.5)
--- NOTE | 2024-04-11 19:37 | CT ---
EXAMINATION TYPE: CT brain wo con DATE OF EXAM: 04/11/2024 HISTORY: Altered mental status CT DLP: 1153.4 mGycm. Automated Exposure Control for Dose Reduction was Utilized. TECHNIQUE: CT scan of the head is performed without contrast. COMPARISON: 01/09/2024 FINDINGS: No skull fracture or parenchymal hemorrhage. No mass or mass effect. There is diffuse bilateral coron a radiata and centrum semiovale low-attenuation, nonspecific but usually reflecting small vessel isch emic change. There is no definite acute attenuation defect. Extra axial compartment is negative for acute findings. The ventricles are more prominent than sulcal patterns/cisterns, a nonspecific finding which can correlate with a clinical diagnosis of normal pre ssure processes. This finding is relatively mild in degree The paranasal sinuses and middle ear cavities and mastoid sinus air cells are clear. Orbits are unremarkable. IMPRESSION: No definite acute process.
--- NOTE | 2024-04-11 20:04 | XR ---
EXAMINATION: XR chest 2V: 04/11/2024 7:15 PM CLINICAL INDICATION: altered mental status TECHNIQUE: PA and lateral views COMPARISON: 02/11/2024 portable AP upright FINDINGS / IMPRESSION: Double lumen right IJ catheter tip superimposed over the SVC. There is a triangular-shaped retrocardiac density that silhouettes the medial left hemidiaphragm, con sistent with partial left lower lobe atelectasis and/or pneumonia. Remainder the lungs appear well-ex panded and clear. Bilateral small pleural effusions are evident on the lateral view particularly, but seen on the left on the frontal view. The cardiac silhouette is not enlarged. The skeletal structures and soft tissues are negative for acute findings. No acute radiographic process.
--- NOTE | 2024-04-11 20:05 | ED ---
Altered Mental Status HPI - General Chief Complaint: Altered Mental Status Stated Complaint: AMS Source: patient, family Mode of arrival: wheelchair Limitations: no limitations - History of Present Illness Initial Comments: 78-year-old female with past medical history of end-stage renal disease on hemodialysis who presents emergency department with altered mental status. is at bedside and helps provide the history. States that the patient has been confused since Monday. She did go to her dialysis appointment and they had to delay her treatment because of her altered mental status. They were eventually able to complete it. Patient also went to dialysis today. He states that she will have intermittent episodes of confusion however this is the worst it has ever been. Patient cannot communicate because of the significant alteration in her mental status. Patient appears to have some expressive aphasia. She is able to answer some questions appropriately. Does not make any urine on the days that she has dialysis. She is complaining of pain from the uncomfortable bed but denies any other symptoms. No reported fevers. No vomiting. She denies any chest pain. No other alleviating, precipitating or modifying factors - Related Data Home Medications Medication Instructions Recorded Confirmed Acetaminophen Tab [Tylenol] 500 - 1,000 mg PO Q6H PRN 07/27/22 04/11/24 Aspirin EC [Ecotrin Low Dose] 81 mg PO DAILY 07/27/22 04/11/24 Levothyroxine Sodium 100 mcg PO MOTUWETHFRSA@0600 07/27/22 04/11/24 Simvastatin [Zocor] 80 mg PO DAILY 07/27/22 04/11/24 Carbidopa-Levodopa 25-100 mg 1 tab PO QID@08,12,16,20 10/30/23 04/11/24 [Sinemet 25-100 mg] Ferrous Sulfate [Iron (65 MG 325 mg PO DAILY 01/04/24 04/11/24 Elemental)] Ascorbic Acid [Vitamin C] 500 mg PO DAILY 02/09/24 04/11/24 Calcium Carbonate [Tums] 500 mg PO BID 02/09/24 04/11/24 Cyanocobalamin [Vitamin B-12] 1,000 mcg PO DAILY 02/09/24 04/11/24 Furosemide [Lasix] 60 mg PO DAILY 02/09/24 04/11/24 INSULIN ASPART (NovoLOG) [NovoLOG See Protocol SQ ACHS MDD 90 units 02/09/24 04/11/24 (formulary)] Lacosamide 100 mg PO BID 02/09/24 04/11/24 Levothyroxine Sodium [Synthroid] 50 mcg PO CALABRESE@0600 02/09/24 04/11/24 Magnesium Oxide [Mag-Ox] 400 mg PO DAILY 02/09/24 04/11/24 Nephro-Oralia 1mg 1 tab PO DAILY 02/09/24 04/11/24 Pantoprazole [Protonix] 40 mg PO BID 02/09/24 04/11/24 amLODIPine [Norvasc] 5 mg PO DAILY 02/09/24 04/11/24 Methoxy Peg-Epoetin Beta [Mircera] 100 mcg SQ Q14D 02/22/24 04/11/24 Citalopram Hydrobromide [CeleXA] 20 mg PO DAILY 04/11/24 04/11/24 Potassium Chloride ER [K-Dur 20] 20 meq PO DAILY 04/11/24 04/11/24 Previous Rx's Medication Instructions Recorded Mirtazapine [Remeron] 7.5 mg PO HS tab 01/22/24 Allergies Allergy/AdvReac Type Severity Reaction Status Date / Time peanut AdvReac Patient Verified 04/11/24 18:45 denies allergy Review of Systems ROS Statement: Those systems with pertinent positive or pertinent negative responses have been documented in the HPI. ROS Other: All systems not noted in ROS Statement are negative. Past Medical History Past Medical History: Dementia, Diabetes Mellitus, Dialysis, Hyperlipidemia, Hypertension, Renal Disease, Thyroid Disorder History of Any Multi-Drug Resistant Organisms: None Reported Date of last positivie culture/infection: 01/04/24 MDRO Source:: Urine Past Surgical History: Unable to Obtain Past Anesthesia/Blood Transfusion Reactions: No Reported Reaction Past Psychological History: Depression Smoking Status: Never smoker Past Alcohol Use History: None Reported Past Drug Use History: None Reported - Past Family History Brother(s) Additional Family Medical History / Comment(s): Unable to obtain due to patient's underlying dementia General Exam Limitations: altered mental status General appearance: alert, in no apparent distress Head exam: Present: atraumatic, normocephalic, normal inspection Eye exam: Present: normal appearance, PERRL, EOMI. Absent: scleral icterus, conjunctival injection, periorbital swelling ENT exam: Present: normal exam, mucous membranes moist Neck exam: Present: normal inspection. Absent: tenderness, meningismus, lymphadenopathy Respiratory exam: Present: normal lung sounds bilaterally. Absent: respiratory distress, wheezes, rales, rhonchi, stridor Cardiovascular Exam: Present: regular rate, normal rhythm, normal heart sounds. Absent: systolic murmur, diastolic murmur, rubs, gallop, clicks GI/Abdominal exam: Present: soft, normal bowel sounds. Absent: distended, tenderness, guarding, rebound, rigid Extremities exam: Present: normal inspection, full ROM, normal capillary refill. Absent: tenderness, pedal edema, joint swelling, calf tenderness Back exam: Present: normal inspection Neurological exam: Present: alert, CN II-XII intact Psychiatric exam: Present: normal affect, normal mood Skin exam: Present: warm, dry, intact, normal color. Absent: rash Course Vital Signs 04/11/24 04/11/24 04/11/24 16:36 17:40 18:00 Temperature 99.4 F Pulse Rate 71 87 87 Pulse Rate [ Pulse Oximetery ] Respiratory 16 16 16 Rate Blood Pressure 116/67 121/57 120/60 O2 Sat by Pulse 100 95 95 Oximetry 04/11/24 04/11/24 04/11/24 19:00 19:55 22:00 Temperature 98.7 F Pulse Rate 90 84 84 Pulse Rate [ Pulse Oximetery ] Respiratory 16 16 16 Rate Blood Pressure 125/72 134/83 O2 Sat by Pulse 99 99 99 Oximetry 04/12/24 04/12/24 04/12/24 00:12 05:00 12:02 Temperature 97.5 F L 97.9 F Pulse Rate 87 94 98 Pulse Rate [ Pulse Oximetery ] Respiratory 24 12 18 Rate Blood Pressure 123/73 133/76 130/70 O2 Sat by Pulse 99 99 97 Oximetry 04/12/24 04/12/24 04/12/24 13:30 14:00 15:20 Temperature 98.2 F Pulse Rate 92 92 Pulse Rate [ 90 Pulse Oximetery ] Respiratory 18 18 18 Rate Blood Pressure 126/77 115/69 O2 Sat by Pulse 92 L 98 Oximetry Medical Decision Making - Medical Decision Making Was pt. sent in by a medical professional or institution (, PA, SYSTEMS INTEGRATION ADVISOR, urgent care, hospital, or group home...) When possible be specific @ -No Did you speak to anyone other than the patient for history (EMS, parent, family, police, friend...)? What history was obtained from this source @ -I spoke with the patient's for history Did you review nursing and triage notes (agree or disagree)? Why? @ -I reviewed and agree with nursing and triage notes Were old charts reviewed (outside hosp., previous admission, EMS record, old EKG, old radiological studies, urgent care reports/EKG's, group home records)? Report findings @ -No old charts were reviewed Differential Diagnosis (chest pain, altered mental status, abdominal pain women, abdominal pain men, vaginal bleeding, weakness, fever, dyspnea, syncope, headache, dizziness, GI bleed, back pain, seizure, CVA, palpatations, mental health, musculoskeletal)? @ -Differential Altered Mental Status: Hypoglycemia, DKA, hypercapnia, ETOH, overdose, CO poisoning, trauma, myxedema coma, HTN encephalopathy, infection, encephalitis, psychosis, intercranial hemorrhage, hepatic encephalopathy, meningitis, CVA, this is not meant to be an all-inclusive list EKG interpreted by me (3pts min.). @ -yes and demonstrates sinus rhythm with a rate of 82. AZ interval 155. QRS 74. QTc of 433. Inverted T wave in V2V3 X-rays interpreted by me (1pt min.). @ -Yes and demonstrates no acute process CT interpreted by me (1pt min.). @ -Yes and demonstrates no acute process U/S interpreted by me (1pt. min.). @ -None done What testing was considered but not performed or refused? (CT, X-rays, U/S, labs)? Why? @ -None What meds were considered but not given or refused? Why? @ -None Did you discuss the management of the patient with other professionals (professionals i.e. DrNyla, PA, SYSTEMS INTEGRATION ADVISOR, lab, RT, psych nurse, social studies teacher, medical office secretary, teacher, airconditioning drafting officer, case liner)? Give summary @ -Spoke with Dr. Chang for admission Was smoking cessation discussed for >3mins.? @ -No Was critical care preformed (if so, how long)? @ -No Were there social determinants of health that impacted care today? How? (Homelessness, low income, unemployed, alcoholism, drug addiction, transportation, low edu. Level, literacy, decrease access to med. care, nursing home, rehab)? @ -No Was there de-escalation of care discussed even if they declined (Discuss DNR or withdrawal of care, Hospice)? DNR status @ -No What co-morbidities impacted this encounter? (DM, HTN, Smoking, COPD, CAD, Cancer, CVA, ARF, Chemo, Hep., AIDS, mental health diagnosis, sleep apnea, morbid obesity)? @ -End-stage renal disease on hemodialysis Was patient admitted / discharged? Hospital course, mention meds given and route, prescriptions, significant lab abnormalities, going to OR and other pertinent info. @ -Upon arrival patient seen and evaluated in room 25. Thorough history and physical exam was performed. IV is established. Laboratory studies are conduc dave. Chest x-ray and CT of the brain were performed. Spoke with the in regards to admitting the patient due to her confusion. Spoke with Dr. Zambrano who agreed to admit the patient Undiagnosed new problem with uncertain prognosis? @ -Yes Drug Therapy requiring intensive monitoring for toxicity (Heparin, Nitro, Insulin, Cardizem)? @ -No Were any procedures done? @ -No Diagnosis/symptom? @ -Acute encephalopathy, history of end-stage renal disease on hemodialysis Acute, or Chronic, or Acute on Chronic? @ -Acute Uncomplicated (without systemic symptoms) or Complicated (systemic symptoms)? @ -Complicated Side effects of treatment? @ -No Exacerbation, Progression, or Severe Exacerbation? @ -No Poses a threat to life or bodily function? How? (Chest pain, USA, MS, pneumonia, PE, COPD, DKA, ARF, appy, cholecystitis, CVA, Diverticulitis, Homicidal, Suicidal, threat to staff... and all critical care pts) @ -No - Lab Data Result diagrams: 04/15/24 10:30 04/15/24 10:30 Lab Results 04/11/24 04/11/24 04/11/24 Range/Units 18:40 18:40 18:40 WBC 7.9 (3.8-10.6) k/uL RBC 4.04 (3.80-5.40) m/uL Hgb 12.3 D (11.4-16.0) gm/dL Hct 38.1 (34.0-46.0) % MCV 94.3 (80.0-100.0) fL MCH 30.4 (25.0-35.0) pg MCHC 32.3 (31.0-37.0) g/dL RDW 15.1 (11.5-15.5) % Plt Count 290 (150-450) k/uL MPV 8.3 Neutrophils % 67 % Lymphocytes % 23 % Monocytes % 6 % Eosinophils % 2 % Basophils % 1 % Neutrophils # 5.3 (1.3-7.7) k/uL Lymphocytes # 1.8 (1.0-4.8) k/uL Monocytes # 0.5 (0-1.0) k/uL Eosinophils # 0.1 (0-0.7) k/uL Basophils # 0.1 (0-0.2) k/uL PT 10.4 (10.0-12.5) sec INR 0.9 (<1.2) APTT 26.5 (22.0-30.0) sec Sodium 137 (137-145) mmol/L Potassium 4.7 (3.5-5.1) mmol/L Chloride 101 (98-107) mmol/L Carbon Dioxide 27 (22-30) mmol/L Anion Gap 9 mmol/L BUN 13 (7-17) mg/dL Creatinine 2.05 H (0.52-1.04) mg/dL Est GFR (CKD-EPI)AfAm 26 (>60 ml/min/1.73 sqM) Est GFR (CKD-EPI)NonAf 23 (>60 ml/min/1.73 sqM) Glucose 94 (74-99) mg/dL POC Glucose (mg/dL) (70-110) mg/dL POC Glu Corn Detasseler Machine Operator ID Calcium 9.3 (8.4-10.2) mg/dL Phosphorus 1.9 L (2.5-4.5) mg/dL Magnesium 2.0 (1.6-2.3) mg/dL Total Bilirubin 0.6 (0.2-1.3) mg/dL AST 56 H (14-36) U/L ALT 12 (4-34) U/L Alkaline Phosphatase 114 (38-126) U/L Ammonia (<30) umol/L Troponin I (0.000-0.034) ng/mL Total Protein 8.1 (6.3-8.2) g/dL Albumin 4.2 (3.5-5.0) g/dL TSH (0.465-4.680) mIU/L Serum Alcohol <10 mg/dL 04/11/24 04/11/24 04/11/24 Range/Units 18:40 18:40 18:46 WBC (3.8-10.6) k/uL RBC (3.80-5.40) m/uL Hgb (11.4-16.0) gm/dL Hct (34.0-46.0) % MCV (80.0-100.0) fL MCH (25.0-35.0) pg MCHC (31.0-37.0) g/dL RDW (11.5-15.5) % Plt Count (150-450) k/uL MPV Neutrophils % % Lymphocytes % % Monocytes % % Eosinophils % % Basophils % % Neutrophils # (1.3-7.7) k/uL Lymphocytes # (1.0-4.8) k/uL Monocytes # (0-1.0) k/uL Eosinophils # (0-0.7) k/uL Basophils # (0-0.2) k/uL PT (10.0-12.5) sec INR (<1.2) APTT (22.0-30.0) sec Sodium (137-145) mmol/L Potassium (3.5-5.1) mmol/L Chloride (98-107) mmol/L Carbon Dioxide (22-30) mmol/L Anion Gap mmol/L BUN (7-17) mg/dL Creatinine (0.52-1.04) mg/dL Est GFR (CKD-EPI)AfAm (>60 ml/min/1.73 sqM) Est GFR (CKD-EPI)NonAf (>60 ml/min/1.73 sqM) Glucose (74-99) mg/dL POC Glucose (mg/dL) 100 (70-110) mg/dL POC Glu Corn Detasseler Machine Operator ID Marlys Muñoz Calcium (8.4-10.2) mg/dL Phosphorus (2.5-4.5) mg/dL Magnesium (1.6-2.3) mg/dL Total Bilirubin (0.2-1.3) mg/dL AST (14-36) U/L ALT (4-34) U/L Alkaline Phosphatase (38-126) U/L Ammonia <9 (<30) umol/L Troponin I <0.012 (0.000-0.034) ng/mL Total Protein (6.3-8.2) g/dL Albumin (3.5-5.0) g/dL TSH (0.465-4.680) mIU/L Serum Alcohol mg/dL 04/11/24 04/12/24 04/12/24 Range/Units 22:25 05:51 07:16 WBC 7.4 (3.8-10.6) k/uL RBC 3.76 L (3.80-5.40) m/uL Hgb 11.6 (11.4-16.0) gm/dL Hct 36.1 (34.0-46.0) % MCV 96.0 (80.0-100.0) fL MCH 30.8 (25.0-35.0) pg MCHC 32.1 (31.0-37.0) g/dL RDW 15.2 (11.5-15.5) % Plt Count 294 (150-450) k/uL MPV 7.7 Neutrophils % 67 % Lymphocytes % 22 % Monocytes % 7 % Eosinophils % 1 % Basophils % 1 % Neutrophils # 4.9 (1.3-7.7) k/uL Lymphocytes # 1.7 (1.0-4.8) k/uL Monocytes # 0.5 (0-1.0) k/uL Eosinophils # 0.1 (0-0.7) k/uL Basophils # 0.1 (0-0.2) k/uL PT (10.0-12.5) sec INR (<1.2) APTT (22.0-30.0) sec Sodium (137-145) mmol/L Potassium (3.5-5.1) mmol/L Chloride (98-107) mmol/L Carbon Dioxide (22-30) mmol/L Anion Gap mmol/L BUN (7-17) mg/dL Creatinine (0.52-1.04) mg/dL Est GFR (CKD-EPI)AfAm (>60 ml/min/1.73 sqM) Est GFR (CKD-EPI)NonAf (>60 ml/min/1.73 sqM) Glucose (74-99) mg/dL POC Glucose (mg/dL) 88 (70-110) mg/dL POC Glu Corn Detasseler Machine Operator ID Vivian Mathis Calcium (8.4-10.2) mg/dL Phosphorus (2.5-4.5) mg/dL Magnesium (1.6-2.3) mg/dL Total Bilirubin (0.2-1.3) mg/dL AST (14-36) U/L ALT (4-34) U/L Alkaline Phosphatase (38-126) U/L Ammonia (<30) umol/L Troponin I (0.000-0.034) ng/mL Total Protein (6.3-8.2) g/dL Albumin (3.5-5.0) g/dL TSH 4.150 (0.465-4.680) mIU/L Serum Alcohol mg/dL 04/12/24 Range/Units 07:16 WBC (3.8-10.6) k/uL RBC (3.80-5.40) m/uL Hgb (11.4-16.0) gm/dL Hct (34.0-46.0) % MCV (80.0-100.0) fL MCH (25.0-35.0) pg MCHC (31.0-37.0) g/dL RDW (11.5-15.5) % Plt Count (150-450) k/uL MPV Neutrophils % % Lymphocytes % % Monocytes % % Eosinophils % % Basophils % % Neutrophils # (1.3-7.7) k/uL Lymphocytes # (1.0-4.8) k/uL Monocytes # (0-1.0) k/uL Eosinophils # (0-0.7) k/uL Basophils # (0-0.2) k/uL PT (10.0-12.5) sec INR (<1.2) APTT (22.0-30.0) sec Sodium 138 (137-145) mmol/L Potassium 5.0 (3.5-5.1) mmol/L Chloride 104 (98-107) mmol/L Carbon Dioxide 26 (22-30) mmol/L Anion Gap 8 mmol/L BUN 18 H (7-17) mg/dL Creatinine 2.97 H (0.52-1.04) mg/dL Est GFR (CKD-EPI)AfAm 17 (>60 ml/min/1.73 sqM) Est GFR (CKD-EPI)NonAf 14 (>60 ml/min/1.73 sqM) Glucose 90 (74-99) mg/dL POC Glucose (mg/dL) (70-110) mg/dL POC Glu Corn Detasseler Machine Operator ID Calcium 9.3 (8.4-10.2) mg/dL Phosphorus (2.5-4.5) mg/dL Magnesium (1.6-2.3) mg/dL Total Bilirubin (0.2-1.3) mg/dL AST (14-36) U/L ALT (4-34) U/L Alkaline Phosphatase (38-126) U/L Ammonia (<30) umol/L Troponin I (0.000-0.034) ng/mL Total Protein (6.3-8.2) g/dL Albumin (3.5-5.0) g/dL TSH (0.465-4.680) mIU/L Serum Alcohol mg/dL Disposition Clinical Impression: Altered mental status Disposition: ADMITTED IP TO THIS HOSP Condition: Good Is patient prescribed a controlled substance at d/c from ED?: No Time of Disposition: 21:24 Decision to Admit Reason: Admit from EC Decision Date: 04/11/24 Decision Time: 21:24
[2024-04-11] MEDS ORDERED: NALOXONE 0.4 MG/ML 1 ML VIAL IV PRN (21:24)
[2024-04-12] MEDS ORDERED: DEXTROSE 50% SYRINGE 50 ML IVP PRN ×2 (02:58)
--- NOTE | 2024-04-12 03:11 | P.HPIM ---
History of Present Illness H&P Date: 04/11/24 Chief Complaint: Episodes of confusion 78-year-old female with end-stage renal disease on hemodialysis by right permacath, hypertension diabetes mellitus Patient coming in for recurrent episodes of confusion history is obtained by her patient unable to provide any meaningful history at this time Patient reports that the past couple sessions of hemodialysis she with have episodes of confusion after not knowing where she is or what is going on today when she was at dialysis they had to pause the dialysis session for some time to check on the patient until she was back to her normal baseline status she continued her dialysis session and then was sent home however she was disoriented confused not making any sense thought she was hallucinating this has been going on for at least 3 to 4 days and getting worse he was getting concerned and decided to bring her to the hospital for evaluation No reports of falling or head injury no reports of any changes in her medications. No fevers no chills no nausea vomiting no changes in bowel habits patient does not make any urine. He recalls some shoulder surgery due to infection however was couple months ago other than that there has been no major changes in her health Patient denies any tobacco smoking illicit drugs or heavy alcohol Patient does have history of seizures is not sure what type of seizures she has or when was her last breakthrough seizure he claims that she is compli ant with her medications review of systems Pertinent positives as noted in HPI. All other systems were reviewed and are negative on exam Constitutional: No acute distress, cooperative Eyes: Anicteric sclerae, moist conjunctiva, Pupils equal round reactive to light ENMT: NC/AT Oropharynx clear, no erythema, or exudates Neck: Supple, no masses, or JVD No carotid bruits No thyromegaly, right permacath in place insertion site looks clean dry intact no drainage Lungs: Clear to auscultation Clear to percussion Normal respiratory effort, no accessory muscle use Cardiovascular: Heart regular in rate and rhythm, No murmurs, gallops, or rubs No peripheral edema Abdominal: Soft Nontender, no guarding, rebound or rigidity Abdomen moving with respiration Normoactive bowel sounds Extremities: No digital cyanosis No clubbing Pedal pulses intact and symmetrical Radial pulses intact and symmetrical No calf tenderness Psychiatric: Alert and oriented to person, only Neuro Muscles Strength 4/5 in all 4 extremities limited range of motion over the left shoulder Sensation to light touch grossly present throughout Cranial nerves II-XII grossly intact Past Medical History Past Medical History: Dementia, Diabetes Mellitus, Dialysis, Hyperlipidemia, Hypertension, Renal Disease, Thyroid Disorder History of Any Multi-Drug Resistant Organisms: None Reported Date of last positivie culture/infection: 01/04/24 MDRO Source:: Urine Past Surgical History: Unable to Obtain Past Anesthesia/Blood Transfusion Reactions: No Reported Reaction Past Psychological History: Depression Smoking Status: Never smoker Past Alcohol Use History: None Reported Past Drug Use History: None Reported - Past Family History Brother(s) Additional Family Medical History / Comment(s): Unable to obtain due to patient's underlying dementia Medications and Allergies Home Medications Medication Instructions Recorded Confirmed Type Acetaminophen Tab [Tylenol] 500 - 1,000 mg PO Q6H PRN 07/27/22 04/11/24 History Aspirin EC [Ecotrin Low Dose] 81 mg PO DAILY 07/27/22 04/11/24 History Levothyroxine Sodium 100 mcg PO MOTUWETHFRSA@0600 07/27/22 04/11/24 History Simvastatin [Zocor] 80 mg PO DAILY 07/27/22 04/11/24 History Carbidopa-Levodopa 25-100 mg 1 tab PO QID@08,12,16,20 10/30/23 04/11/24 History [Sinemet 25-100 mg] Ferrous Sulfate [Iron (65 MG 325 mg PO DAILY 01/04/24 04/11/24 History Elemental)] Mirtazapine [Remeron] 7.5 mg PO HS tab 01/22/24 04/11/24 Rx Ascorbic Acid [Vitamin C] 500 mg PO DAILY 02/09/24 04/11/24 History Calcium Carbonate [Tums] 500 mg PO BID 02/09/24 04/11/24 History Cyanocobalamin [Vitamin B-12] 1,000 mcg PO DAILY 02/09/24 04/11/24 History Furosemide [Lasix] 60 mg PO DAILY 02/09/24 04/11/24 History INSULIN ASPART (NovoLOG) [NovoLOG See Protocol SQ ACHS MDD 90 units 02/09/24 04/11/24 History (formulary)] Lacosamide 100 mg PO BID 02/09/24 04/11/24 History Levothyroxine Sodium [Synthroid] 50 mcg PO CALABRESE@0600 02/09/24 04/11/24 History Magnesium Oxide [Mag-Ox] 400 mg PO DAILY 02/09/24 04/11/24 History Nephro-Oralia 1mg 1 tab PO DAILY 02/09/24 04/11/24 History Pantoprazole [Protonix] 40 mg PO BID 02/09/24 04/11/24 History amLODIPine [Norvasc] 5 mg PO DAILY 02/09/24 04/11/24 History Methoxy Peg-Epoetin Beta [Mircera] 100 mcg SQ Q14D 02/22/24 04/11/24 History Citalopram Hydrobromide [CeleXA] 20 mg PO DAILY 04/11/24 04/11/24 History Potassium Chloride ER [K-Dur 20] 20 meq PO DAILY 04/11/24 04/11/24 History Allergies Allergy/AdvReac Type Severity Reaction Status Date / Time peanut AdvReac Patient Verified 04/11/24 18:45 denies allergy Physical Exam Vitals: Vital Signs Temp Pulse Resp BP Pulse Ox 04/11/24 19:55 84 16 99 04/11/24 19:00 90 16 125/72 99 04/11/24 18:00 87 16 120/60 95 04/11/24 17:40 87 16 121/57 95 04/11/24 16:36 99.4 F 71 16 116/67 100 Intake and Output 04/11/24 04/11/24 04/11/24 06:59 14:59 22:59 Other: Weight 48.988 kg Results CBC & Chem 7: 04/11/24 18:40 04/11/24 18:40 Labs: Abnormal Lab Results - Last 24 Hours (Table) 04/11/24 Range/Units 18:40 Creatinine 2.05 H (0.52-1.04) mg/dL Phosphorus 1.9 L (2.5-4.5) mg/dL AST 56 H (14-36) U/L Assessment and Plan Assessment: 78-year-old female end-stage renal disease on hemodialysis through right permacath diabetes mellitus hypertension coming in for evaluation of recurrent episodes of confusion I discussed case with ED doctor accepted the admission for acute mental status changes with episodes of confusion and disorientation with anticipated length of stay less than 2 midnights Acute metabolic encephalopathy CT of the brain no acute intracranial pathology Fall precautions Neurochecks Neurology consultation Check EEG Patient does have history of seizures continue with Vimpat Hypothyroid Continue with levothyroxine Diabetes mellitus Insulin sliding scale Hypertension, controlled Continue with amlodipine Blood work reviewed White count 7.9 hemoglobin 12.3 Sodium 137 potassium 4.7 BUN 13 creatinine 2 Troponins negative DVT prophylaxis heparin subcu 3 times daily for 1000 units GI prophylaxis Protonix 40 mg p.o. twice daily CODE STATUS DNR
[2024-04-12 05:53] LABS: Glucose,Whole Blood 88 mg/dL (70-110)
[2024-04-12] MEDS: LEVOTHYROXINE 100 MCG TAB PO SCH (06:08)
[2024-04-12] MEDS: INSULIN ASPART (NovoLOG) 100 UNIT/ML VIAL SQ SCH (07:24)
[2024-04-12 07:48] LABS: Basophils # (A) 0.1 k/uL (0-0.2); Basophils % (A) 1 %; Eosinophils # (A) 0.1 k/uL (0-0.7); Eosinophils % (A) 1 %; HCT 36.1 % (34.0-46.0); HGB 11.6 gm/dL (11.4-16.0); Lymphocytes # (A) 1.7 k/uL (1.0-4.8); Lymphocytes % (A) 22 %; MCH 30.8 pg (25.0-35.0); MCHC 32.1 g/dL (31.0-37.0); Mean Platelet Volume 7.7; Monocytes # (A) 0.5 k/uL (0-1.0); Monocytes % (A) 7 %; Neutrophils # (A) 4.9 k/uL (1.3-7.7); Neutrophils % (A) 67 %; Platelet Count 294 k/uL (150-450); RBC 3.76 m/uL (3.80-5.40); RDW 15.2 % (11.5-15.5); WBC 7.4 k/uL (3.8-10.6)
[2024-04-12 08:11] LABS: African American GFR (CKD) 17 (>60 ml/min/1.73 sqM); Anion Gap 8 mmol/L; Blood Urea Nitrogen 18 mg/dL (7-17); Calcium 9.3 mg/dL (8.4-10.2); Carbon Dioxide 26 mmol/L (22-30); Chloride 104 mmol/L (98-107); Glucose 90 mg/dL (74-99); Non-African American GFR(CKD) 14 (>60 ml/min/1.73 sqM); Sodium 138 mmol/L (137-145)
[2024-04-12] MEDS: CARBIDOPA-LEVODOPA 25-100 MG 1 EACH TAB PO SCH (08:20)
[2024-04-12] MEDS: LACOSAMIDE 50 MG TABLET PO SCH (08:20)
[2024-04-12] MEDS: HEPARIN SODIUM,PORCINE 5,000 UNIT/ML 1 ML VIAL SQ SCH (08:21)
[2024-04-12] MEDS: amLODIPine 5 MG TAB PO SCH (08:21)
[2024-04-12] MEDS: ATORVASTATIN 40 MG TAB PO SCH (08:21)
[2024-04-12] MEDS: ASPIRIN 81 MG PO SCH (08:21)
[2024-04-12] MEDS: PANTOPRAZOLE 40 MG TABLET PO SCH (08:21)
--- NOTE | 2024-04-12 11:26 | P.PN ---
Subjective Progress Note Date: 04/12/24 Patient has no new complaints. Continues to remain confused today. Gen: In NAD, non-toxic HEENT: normocephalic, atraumatic, hearing acuity is intant, mucous membranes moist CVS: perfusing all extremities well, no pitting edema, Respiratory: symmetric chest expansion, no accessory muscle use, GI: soft, NTTP, ND, : no suprapubic tenderness, no CVA tenderness MSK/Derm: no rashes, cyanosis Neuro: CN II-XII intact, no motor weakness, Psych: cooperative, euthymic mood, judgment and insight is intact Hospital course: 78-year-old female end-stage renal disease on hemodialysis through right permac ath diabetes mellitus hypertension coming in for evaluation of recurrent episodes of confusion. Blood work reviewed White count 7.9 hemoglobin 12.3 Sodium 137 potassium 4.7 BUN 13 creatinine [address] of the brain no acute intracranial pathology Assessment/plan: Acute metabolic encephalopathy -Fall precautions -Neurochecks -Neurology consultation -Check EEG -Patient does have history of seizures continue with Vimpat Hypothyroid -Continue with levothyroxine Diabetes mellitus -Insulin sliding scale Hypertension, controlled -Continue with amlodipine DVT prophylaxis heparin subcu 3 times daily for 1000 units GI prophylaxis Protonix 40 mg p.o. twice daily CODE STATUS DNR Objective - Vital Signs Vital signs: Vital Signs Temp 97.9 F 04/12/24 05:00 Pulse 94 04/12/24 05:00 Resp 12 04/12/24 05:00 BP 133/76 04/12/24 05:00 Pulse Ox 99 04/12/24 05:00 FiO2 Intake & Output 04/11/24 04/12/24 04/12/24 18:59 06:59 18:59 Weight 48.988 kg - Labs CBC & Chem 7: 04/12/24 07:16 04/12/24 07:16 Labs: Abnormal Lab Results - Last 24 Hours (Table) 04/11/24 04/12/24 04/12/24 Range/Units 18:40 07:16 07:16 RBC 3.76 L (3.80-5.40) m/uL BUN 18 H (7-17) mg/dL Creatinine 2.05 H 2.97 H (0.52-1.04) mg/dL Phosphorus 1.9 L (2.5-4.5) mg/dL AST 56 H (14-36) U/L
[2024-04-12 12:50] LABS: Glucose,Whole Blood 116 mg/dL (70-110)
[2024-04-12 16:33] LABS: Glucose,Whole Blood 143 mg/dL (70-110)
[2024-04-12 20:38] LABS: Glucose,Whole Blood 155 mg/dL (70-110)
[2024-04-12] MEDS: CALCIUM CARBONATE 500 MG CHEWABLE PO SCH (20:59)
[2024-04-12] MEDS: MIRTAZAPINE 15 MG TAB PO SCH (21:00)
--- NOTE | 2024-04-13 03:08 | EEG ---
ELECTROENCEPHALOGRAM REPORT PREAMBLE: This is a 78-year-old female who has presented with episodes of confusion. The patient does have end-stage renal disease, on hemodialysis. She had episodes of confusion, not knowing where she is or what is going on. The patient is having difficulty following commands. The patient has history of dementia, diabetes. CURRENT MEDICATIONS: 1. Norvasc. 2. Aspirin. 3. Lipitor. 4. Sinemet. 5. Insulin. 6. Vimpat. 7. Synthroid. 8. Protonix. EEG FINDINGS: This is a 21-channel digital EEG recorded with video component, utilizing 10/20 international system with referential and bipolar montages. Background consists of fairly well-developed, moderately well-regulated, mixed frequencies of 9 hertz alpha, intermixed with some moderate amplitude mixed 4-6 hertz theta activity seen in bihemispheric region. Background does not seem to be clearly reactive to eye opening or closing. Different stages of sleep were not clearly seen. No focal or generalized epileptiform activity was seen. IMPRESSION: This is an abnormal EEG due to intermittent background slowing, suggestive of mild-to- moderate encephalopathy. No focal or generalized epileptiform activity was seen. MMODL / IJN: [id number] /
[2024-04-13 05:54] LABS: Glucose,Whole Blood 102 mg/dL (70-110)
[2024-04-13] MEDS: FERROUS SULFATE 325 MG TAB PO SCH (08:07)
[2024-04-13] MEDS: FOLIC ACID-VIT B COMPLEX-VIT C 1 CAP PO SCH (08:07)
[2024-04-13] MEDS: FUROSEMIDE 20 MG TAB PO SCH (08:07)
[2024-04-13] MEDS: CYANOCOBALAMIN 500 MCG TAB PO SCH (08:07)
[2024-04-13] MEDS: POTASSIUM CHLORIDE ER 20 MEQ TAB.ER PO SCH (08:07)
[2024-04-13] MEDS: MAGNESIUM OXIDE 400 MG TAB PO SCH (08:07)
[2024-04-13] MEDS: CITALOPRAM HYDROBROMIDE 20 MG TAB PO SCH (08:07)
--- NOTE | 2024-04-13 10:17 | P.CNNES ---
History of Present Illness Consult date: 04/12/24 Requesting physician: Jose Chang Reason for Consult: episodes of confusion History of Present Illness: Patient is a 78-year-old right-handed female with history of dementia, came to the hospital yesterday at 4:26 PM for episode of unresponsiveness after hemodialysis. History provided partly by the patient, but I also spoke to patient's and patient's [id number]. Patient states that she came because they thought she was having a seizure. She states that she was confused, did not know what was going on, did not know where she was. She lives with her Ady. Patient does have history of dementia, she gets forgetful, confused easily. Patient has no children, however she does know names of her nephews nieces, great grand nephews. Patient receives hemodialysis every Tuesdays and . On Monday, 3 days ago she had an episode during hemodialysis in which she was not very responsive. They paused the hemodialysis, she got better, and the were able to complete the session. On Monday, she was doing very good, much better than her usual days. Yesterday on , in the morning she was doing very well. She went for hemodialysis and during hemodialysis she started becoming altered, became "out of it". She was not making sense, incoherent and was unresponsive. There was no tongue bite or loss of control of urine. Therefore she was brought to the hospital. Patient's states that she be takes medication regularly, does not miss the dose. No previous history of strokes or TIA. She walks with a walker for last 3 months. Vital signs on arrival blood pressure 116/67, pulse rate 71 temperature 99.4. Blood test shows normal CBC, PT PTT, normal electrolytes, BUN 13, creatinine 2.05. AST is 56, ALT 12. Troponin negative. Ammonia less than 9. TSH is normal 4.15. Blood alcohol level negative. CT head showed no acute process. I personally reviewed CT head, agree with the findings. On my review, there is significant generalized atrophy with prominence of periventricular white matter hypodensity bilaterally. No acute process. Chest x-ray showed no acute process. There is triangular-shaped retrocardiac density that still holds the medial left hemidiaphragm, consistent with partial left lower lobe atelectasis and/or pneumonia. EKG shows sinus rhythm. Patient has been seen by Dr. Meyer on 01/11/2024 for worsening confusion, dec reased appetite. She had left shoulder fracture and history of pelvic fracture. She was found to have MSSA bacteremia and ESBL UTI. Patient had new onset seizure, with status epilepticus in the hospital. She was given Ativan. MRI of the brain negative for any acute process. CSF was negative. Patient was placed on Vimpat 100 mg twice daily. Patient also has Alzheimer's dementia, Parkinson's disease, hypertension, hyperlipidemia. Review of Systems Constitutional: Reports chills, Reports fever Eyes: denies blurred vision, denies diplopia, denies pain Ears, nose, mouth and throat: Reports headache Cardiovascular: Reports shortness of breath, Denies chest pain Respiratory: Denies cough, Denies excessive sputum Gastrointestinal: Reports nausea, Denies abdominal pain, Denies diarrhea, Denies vomiting Past Medical History Past Medical History: Dementia, Diabetes Mellitus, Dialysis, Hyperlipidemia, Hypertension, Renal Disease, Thyroid Disorder History of Any Multi-Drug Resistant Organisms: None Reported Date of last positivie culture/infection: 01/04/24 MDRO Source:: Urine Past Surgical History: Unable to Obtain Past Anesthesia/Blood Transfusion Reactions: No Reported Reaction Past Psychological History: Depression Smoking Status: Never smoker Past Alcohol Use History: None Reported Past Drug Use History: None Reported - Past Family History Brother(s) Additional Family Medical History / Comment(s): Unable to obtain due to patient's underlying dementia Medications and Allergies Home Medications Medication Instructions Recorded Confirmed Type Acetaminophen Tab [Tylenol] 500 - 1,000 mg PO Q6H PRN 07/27/22 04/11/24 History Aspirin EC [Ecotrin Low Dose] 81 mg PO DAILY 07/27/22 04/11/24 History Levothyroxine Sodium 100 mcg PO MOTUWETHFRSA@0600 07/27/22 04/11/24 History Simvastatin [Zocor] 80 mg PO DAILY 07/27/22 04/11/24 History Carbidopa-Levodopa 25-100 mg 1 tab PO QID@08,12,16,20 10/30/23 04/11/24 History [Sinemet 25-100 mg] Ferrous Sulfate [Iron (65 MG 325 mg PO DAILY 01/04/24 04/11/24 History Elemental)] Mirtazapine [Remeron] 7.5 mg PO HS tab 01/22/24 04/11/24 Rx Ascorbic Acid [Vitamin C] 500 mg PO DAILY 02/09/24 04/11/24 History Calcium Carbonate [Tums] 500 mg PO BID 02/09/24 04/11/24 History Cyanocobalamin [Vitamin B-12] 1,000 mcg PO DAILY 02/09/24 04/11/24 History Furosemide [Lasix] 60 mg PO DAILY 02/09/24 04/11/24 History INSULIN ASPART (NovoLOG) [NovoLOG See Protocol SQ ACHS MDD 90 units 02/09/24 04/11/24 History (formulary)] Lacosamide 100 mg PO BID 02/09/24 04/11/24 History Levothyroxine Sodium [Synthroid] 50 mcg PO CALABRESE@0600 02/09/24 04/11/24 History Magnesium Oxide [Mag-Ox] 400 mg PO DAILY 02/09/24 04/11/24 History Nephro-Oralia 1mg 1 tab PO DAILY 02/09/24 04/11/24 History Pantoprazole [Protonix] 40 mg PO BID 02/09/24 04/11/24 History amLODIPine [Norvasc] 5 mg PO DAILY 02/09/24 04/11/24 History Methoxy Peg-Epoetin Beta [Mircera] 100 mcg SQ Q14D 02/22/24 04/11/24 History Citalopram Hydrobromide [CeleXA] 20 mg PO DAILY 04/11/24 04/11/24 History Potassium Chloride ER [K-Dur 20] 20 meq PO DAILY 04/11/24 04/11/24 History Allergies Allergy/AdvReac Type Severity Reaction Status Date / Time peanut AdvReac Patient Verified 04/11/24 18:45 denies allergy Physical Examination - Vital Signs Vital Signs: Vital Signs Temp Pulse Pulse Resp BP BP Pulse Ox 04/12/24 17:20 98.8 F 87 19 134/68 97 04/12/24 15:50 98.4 F 90 18 150/68 96 04/12/24 15:20 98.2 F 92 18 115/69 98 04/12/24 14:00 90 18 04/12/24 13:30 92 18 126/77 92 L 04/12/24 12:02 98 18 130/70 97 04/12/24 05:00 97.9 F 94 12 133/76 99 04/12/24 00:12 97.5 F L 87 24 123/73 99 04/11/24 22:00 98.7 F 84 16 134/83 99 04/11/24 19:55 84 16 99 04/11/24 19:00 90 16 125/72 99 Intake and Output 04/12/24 04/12/24 04/12/24 06:59 14:59 22:59 Other: Voiding Method Incontinent Weight 48.988 kg Patient is an elderly female, in no acute distress. Patient is alert awake. She states it is April 13 and the year is . (Actually 04/12/2024). She could not tell the city although she knows that she is in [facility] in [place]. She knows that she is in the hospital but does not know the name of it. She knows name of the current president Mr. Gilbert. She knows her date of but believes that she is 88 years of age (actually 78). Speech is at times hesitant. Patient able to name simple objects like button, collar, pencil, glasses. For earlobe, patient said "ear globe", and for knuckles patient said "funnel", then said correctly knuckles. Patient can repeat well. Attention, concentration is slightly decreased and fund of knowledge is moderately limited detailed cognitive function testing deferred.. On cranial nerve examination, pupils are equal, round and reacting to light, visual jolly are full on confrontation, with no neglect on double simultaneous stimulation. Extraocular muscles are intact with no nystagmus. Face is symmetric, tongue protrudes to the midline. Palatal elevation and sensation normal, hearing and shoulder shrug normal, facial sensation normal. On muscle strength testing, there is no pronator drift and the strength is normal in arms and legs distally and proximally. Deep tendon reflexes are symmetric 1+ at the biceps and brachioradialis, 2+ at the knees and plantars are withdrawal bilaterally. Sensory to touch is equal with no neglect on double simultaneous stimulation. Cerebellar function showed no ataxia for [id number] testing. Tone and bulk of muscles normal. Gait deferred.. On general examination, there is no carotid bruit or murmur, S1-S2 audible. Chest is clear on consultation. Abdomen is soft nontender. No organomegaly, bowel sounds present. Peripheral pulses are present. No peripheral edema. Results - Laboratory Findings CBC and BMP: 04/12/24 07:16 04/12/24 07:16 Abnormal Lab Findings: Abnormal Labs 04/11/24 04/12/24 04/12/24 18:40 07:16 07:16 RBC 3.76 L BUN 18 H Creatinine 2.05 H 2.97 H POC Glucose (mg/dL) Phosphorus 1.9 L AST 56 H 04/12/24 04/12/24 12:49 16:31 RBC BUN Creatinine POC Glucose (mg/dL) 116 H 143 H Phosphorus AST Assessment and Plan Assessment: * Episode of unresponsiveness, unclear cause, rule out seizure versus vasovagal syncope. Transient encephalopathy from dialysis also possibility. * History of new onset seizure in December 2023. * Alzheimer's dementia * Hypertension * Hyperlipidemia * Hypothyroidism * Rhk-jjspznb-spccqbccn diabetes * Iron deficiency anemia * Recurrent UTI Plan: * Patient underwent EEG, which was abnormal due to intermittent background slowing, suggestive of mild to moderate encephalopathy. No focal or generalized epileptiform activity was seen. * Continue same dose of Vimpat 100 mg twice daily. Recommend adding Vimpat 50 mg extra dose post dialysis. * Patient had a recent MRI of the brain on 01/10/2024, which revealed atrophy with chronic appearing periventricular white matter ischemic changes. No suspicious acute changes to account for seizure. * Check carotid Doppler. * 2D echo from 01/04/2024 revealed normal left ventricular systolic function with EF 55 to 60%. No obvious regional wall motion abnormalities. Left and right atrial sizes are normal. No valvular abnormalities. * Hemoglobin A1c 5.0 * TSH normal 4.15. * Continue aspirin 81 mg and Lipitor 40 mg. Patient also on B12 replacement 1000 mcg and folic acid daily. * Thank you for the consult.
[2024-04-13 11:18] LABS: Glucose,Whole Blood 112 mg/dL (70-110)
--- NOTE | 2024-04-13 11:30 | P.PN ---
Subjective Progress Note Date: 04/13/24 Patient has no new complaints. Gen: In NAD, non-toxic HEENT: normocephalic, atraumatic, hearing acuity is intant, mucous membranes moist CVS: perfusing all extremities well, no pitting edema, Respiratory: symmetric chest expansion, no accessory muscle use, GI: soft, NTTP, ND, : no suprapubic tenderness, no CVA tenderness MSK/Derm: no rashes, cyanosis Neuro: CN II-XII intact, no motor weakness, Psych: cooperative, euthymic mood, judgment and insight is intact Hospital course: 78-year-old female end-stage renal disease on hemodialysis through right permacath diabetes mellitus hypertension coming in for evaluation of recurrent episodes of confusion. Blood work reviewed White count 7.9 hemoglobin 12.3 Sodium 137 potassium 4.7 BUN 13 creatinine [address] of the brain no acute intracranial pathology Assessment/plan: Acute metabolic encephalopathy -Fall precautions -Neurochecks -Neurology consultation, they are adding vimpat 50mg post dialysis, checking carotid doppler -Check EEG = generalized slowing c/w metabolic encephalopathy Hypothyroid -Continue with levothyroxine Diabetes mellitus -Insulin sliding scale Hypertension, controlled -Continue with amlodipine DVT prophylaxis heparin subcu 3 times daily for 1000 units GI prophylaxis Protonix 40 mg p.o. twice daily CODE STATUS DNR Objective - Vital Signs Vital signs: Vital Signs Temp 98.2 F 04/13/24 07:18 Pulse 82 04/13/24 07:18 Resp 17 04/13/24 07:18 BP 149/62 04/13/24 07:18 Pulse Ox 100 04/13/24 07:18 FiO2 Intake & Output 04/12/24 04/13/24 04/13/24 18:59 06:59 18:59 Weight 48.988 kg Other: Voiding Method Incontinent # Voids 3 - Labs CBC & Chem 7: 04/12/24 07:16 04/12/24 07:16 Labs: Abnormal Lab Results - Last 24 Hours (Table) 04/12/24 04/12/24 04/12/24 Range/Units 12:49 16:31 20:35 POC Glucose (mg/dL) 116 H 143 H 155 H (70-110) mg/dL 04/13/24 Range/Units 11:17 POC Glucose (mg/dL) 112 H (70-110) mg/dL Microbiology - Last 24 Hours (Table) 04/11/24 18:45 Blood Culture - Preliminary Blood 04/11/24 19:10 Blood Culture - Preliminary Blood
[2024-04-13 16:41] LABS: Glucose,Whole Blood 94 mg/dL (70-110)
--- NOTE | 2024-04-13 17:44 | US ---
EXAMINATION TYPE: US carotid duplex BILAT DATE OF EXAM: 04/13/2024 COMPARISON: NONE CLINICAL INDICATION: Female, 78 years old with history of Recurrent syncope; recurrent syncope TECHNIQUE: Carotid duplex ultrasound examination. Indirect Doppler criteria was utilized. FINDINGS: EXAM MEASUREMENTS: RIGHT: Peak Systolic Velocity (PSV) cm/sec ----- Right CCA: 57.0 ----- Right ICA: 57.0 ----- Right ECA: 75.7 ICA/CCA ratio: 1.0 RIGHT: End Diastole cm/sec ----- Right CCA: 13.4 ----- Right ICA: 14.8 ----- Right ECA: 0.0 LEFT: Peak Systolic Velocity (PSV) cm/sec ----- Left CCA: 60.1 ----- Left ICA: 76.2 ----- Left ECA: 78.7 ICA/CCA ratio: 1.3 LEFT: End Diastole cm/sec ----- Left CCA: 7.7 ----- Left ICA: 16.4 ----- Left ECA: 0.0 VERTEBRALS (direction of flow): Right Vertebral: Antegrade Left Vertebral: Antegrade Rhythm: Normal NATIONAL COVERAGE SPECIALIST NOTES: Mild plaque bilateral bifurcations. No evidence of increased velocities IMPRESSION: 1. Mild atheromatous plaquing without significant flow-limiting stenosis based on velocities. Criteria for Assigning % of Stenosis / Diameter reduction (Estimation based on the indirect measurements of the internal carotid artery velocities (ICA PSV). 1. Normal (no stenosis)=ICA PSV < 125 cm/s: ratio < 2.0: ICA EDV<40 cm/s. 2. Less than 50% stenosis=ICA PSV < 125 cm/s: ratio < 2.0: ICA EDV<40 cm/s. 3. 50 to 69% stenosis=ICA PSV of 125 to 230 cm/s: ration 2.0 ? 4.0: ICA EDV 40-100 cm/s. 4. Greater than 70% stenosis to near occlusion= ICA PSV > 230 cm/s: ratio > 4.0: ICA EDV > 100 cm/s. 5. Near occlusion= ICA PSV velocities may be low or undetectable: variable ratio and ICA EDV. 6. Total occlusion=unable to detect flow.
[2024-04-13 18:03] LABS: Glucose,Whole Blood 116 mg/dL (70-110)
[2024-04-13] MEDS: LACOSAMIDE 50 MG TABLET PO ONE (19:59)
[2024-04-13 20:36] LABS: Glucose,Whole Blood 115 mg/dL (70-110)
[2024-04-14 06:02] LABS: Glucose,Whole Blood 96 mg/dL (70-110)
[2024-04-14] MEDS: LEVOTHYROXINE 50 MCG TAB PO SCH (06:25)
[2024-04-14 09:14] LABS: Basophils # (A) 0.07 X 10*3/uL (0.00-0.10); Basophils % (A) 0.9 %; Eosinophils # (A) 0.14 X 10*3/uL (0.04-0.35); Eosinophils % (A) 1.7 %; HCT 36.5 % (37.2-46.3); HGB 11.8 g/dL (12.0-15.0); Lymphocytes # (A) 2.07 X 10*3/uL (0.90-5.00); Lymphocytes % (A) 25.8 %; MCH 31.3 pg (27.0-32.0); MCHC 32.3 g/dL (32.0-37.0); MCV 96.8 FL (80.0-97.0); Mean Platelet Volume 10.5 FL (9.5-12.2); Monocytes # (A) 0.67 X 10*3/uL (0.20-1.00); Monocytes % (A) 8.4 %; NRBC Per 100 WBC 0 X 10*3/uL (0.00-0.01); Neutrophils # (A) 5.04 X 10*3/uL (1.80-7.70); Neutrophils % (A) 62.8 %; Platelet Count 243 X 10*3/uL (140-440); RBC 3.77 X 10*6/uL (4.10-5.20); WBC 8.02 X 10*3/uL (4.50-10.00)
[2024-04-14 09:28] LABS: BUN/Creat Ratio 4.48 Ratio (12.00-20.00); Blood Urea Nitrogen 11.2 mg/dL (9.0-27.0); Calcium 9.6 mg/dL (8.7-10.3); Carbon Dioxide 26.4 mmol/L (21.6-31.8); Chloride 94 mmol/L (96-109); Glucose 89 mg/dL (70-110); Potassium 4.4 mmol/L (3.5-5.5); Sodium 133 mmol/L (135-145)
--- NOTE | 2024-04-14 11:33 | P.PN ---
Subjective Progress Note Date: 04/13/24 Patient was seen for a follow-up. Patient is laying comfortably in the bed. Offers no new complaints. No further seizures or syncope. Objective - Vital Signs Vital signs: Vital Signs Temp 98.4 F 04/13/24 13:25 Pulse 79 04/13/24 13:25 Resp 17 04/13/24 13:25 BP 104/59 04/13/24 13:25 Pulse Ox 99 04/13/24 13:25 FiO2 Intake & Output 04/12/24 04/13/24 04/13/24 18:59 06:59 18:59 Weight 48.988 kg Other: Voiding Method Incontinent # Voids 3 1 - Exam Examination unchanged. Patient getting hemodialysis. - Labs CBC & Chem 7: 04/14/24 04:27 04/14/24 04:27 Labs: Abnormal Lab Results - Last 24 Hours (Table) 04/12/24 04/13/24 04/13/24 Range/Units 20:35 11:17 18:02 POC Glucose (mg/dL) 155 H 112 H 116 H (70-110) mg/dL Microbiology - Last 24 Hours (Table) 04/11/24 18:45 Blood Culture - Preliminary Blood 04/11/24 19:10 Blood Culture - Preliminary Blood Assessment and Plan Assessment: * Episode of unresponsiveness, unclear cause, rule out seizure versus vasovagal syncope. Transient encephalopathy from dialysis also possibility. * History of new onset seizure in December 2023. * Alzheimer's dementia * Hypertension * Hyperlipidemia * Hypothyroidism * Vtw-uauyvns-rjxnscudb diabetes * Iron deficiency anemia * Recurrent UTI Plan: * Patient underwent EEG, which was abnormal due to intermittent background slowing, suggestive of mild to moderate encephalopathy. No focal or generalized epileptiform activity was seen. * Continue same dose of Vimpat 100 mg twice daily. Recommend adding Vimpat 50 mg extra dose post dialysis. * Patient had a recent MRI of the brain on 01/10/2024, which revealed atrophy with chronic appearing periventricular white matter ischemic changes. No suspicious acute changes to account for seizure. * Carotid Doppler revealed mild atheromatous plaquing without significant flow limiting stenosis based on velocities. Antegrade flow in both vertebral arteries. * 2D echo from 01/04/2024 revealed normal left ventricular systolic function with EF 55 to 60%. No obvious regional wall motion abnormalities. Left and right atrial sizes are normal. No valvular abnormalities. * Hemoglobin A1c 5.0 * TSH normal 4.15. * Continue aspirin 81 mg and Lipitor 40 mg. Patient also on B12 replacement 1000 mcg and folic acid daily. * Neurologically clear for discharge. Follow up with neurologist in 1-2 weeks.
[2024-04-14 11:38] LABS: Glucose,Whole Blood 135 mg/dL (70-110)
--- NOTE | 2024-04-14 11:55 | P.PN ---
Subjective Progress Note Date: 04/14/24 Patient has no new complaints. Gen: In NAD, non-toxic HEENT: normocephalic, atraumatic, hearing acuity is intant, mucous membranes moist CVS: perfusing all extremities well, no pitting edema, Respiratory: symmetric chest expansion, no accessory muscle use, GI: soft, NTTP, ND, : no suprapubic tenderness, no CVA tenderness MSK/Derm: no rashes, cyanosis Neuro: CN II-XII intact, no motor weakness, Psych: cooperative, euthymic mood, judgment and insight is intact Hospital course: 78-year-old female end-stage renal disease on hemodialysis through right permacath diabetes mellitus hypertension coming in for evaluation of recurrent episodes of confusion. Blood work reviewed White count 7.9 hemoglobin 12.3 Sodium 137 potassium 4.7 BUN 13 creatinine [address] of the brain no acute intracranial pathology Assessment/plan: Acute metabolic encephalopathy -Fall precautions -Neurochecks -Neurology consultation, they are adding vimpat 50mg post dialysis, checking carotid doppler -Check EEG = generalized slowing c/w metabolic encephalopathy Hypothyroid -Continue with levothyroxine Diabetes mellitus -Insulin sliding scale Hypertension, controlled -Continue with amlodipine DVT prophylaxis heparin subcu 3 times daily for 1000 units GI prophylaxis Protonix 40 mg p.o. twice daily CODE STATUS DNR Objective - Vital Signs Vital signs: Vital Signs Temp 98.6 F 04/14/24 07:36 Pulse 79 04/14/24 07:36 Resp 17 04/14/24 07:36 BP 94/61 04/14/24 07:36 Pulse Ox 98 04/14/24 07:36 FiO2 Intake & Output 04/13/24 04/14/24 04/14/24 18:59 06:59 18:59 Intake Total 650 Output Total 2049 Balance -1400 Intake: Hemodialysis 650 Output: Hemodialysis 2049 Other: Voiding Method Incontinent # Voids 1 - Labs CBC & Chem 7: 04/14/24 04:27 04/14/24 04:27 Labs: Abnormal Lab Results - Last 24 Hours (Table) 04/13/24 04/13/24 04/14/24 Range/Units 18:02 20:35 04:27 RBC 3.77 L (4.10-5.20) X 10*6/uL Hgb 11.8 L (12.0-15.0) g/dL Hct 36.5 L (37.2-46.3) % RDW 15.0 H (11.5-14.5) % Sodium (135-145) mmol/L Chloride (96-109) mmol/L Anion Gap (4.00-12.00) mmol/L Creatinine (0.6-1.5) mg/dL Est GFR (CKD-EPI) (>=60) BUN/Creatinine Ratio (12.00-20.00) Ratio POC Glucose (mg/dL) 116 H 115 H (70-110) mg/dL 04/14/24 04/14/24 Range/Units 04:27 11:37 RBC (4.10-5.20) X 10*6/uL Hgb (12.0-15.0) g/dL Hct (37.2-46.3) % RDW (11.5-14.5) % Sodium 133 L (135-145) mmol/L Chloride 94 L (96-109) mmol/L Anion Gap 12.60 H (4.00-12.00) mmol/L Creatinine 2.5 H (0.6-1.5) mg/dL Est GFR (CKD-EPI) 19 L (>=60) BUN/Creatinine Ratio 4.48 L (12.00-20.00) Ratio POC Glucose (mg/dL) 135 H (70-110) mg/dL Microbiology - Last 24 Hours (Table) 04/11/24 18:45 Blood Culture - Preliminary Blood 04/11/24 19:10 Blood Culture - Preliminary Blood
[2024-04-14 14:12] VITALS: RESP 18
[2024-04-14 16:33] LABS: Glucose,Whole Blood 120 mg/dL (70-110)
--- NOTE | 2024-04-14 17:27 | P.PN ---
Subjective Patient is seen for follow-up for acute kidney injury, currently hemodialysis dependent. Patient was admitted to the hospital with mental status changes, now improved. No significant complaints today. Objective - Vital Signs Vital signs: Vital Signs Temp 98.1 F 04/14/24 13:03 Pulse 80 04/14/24 13:03 Resp 18 04/14/24 13:03 BP 92/51 04/14/24 13:03 Pulse Ox 98 04/14/24 13:03 FiO2 Intake & Output 04/13/24 04/14/24 04/14/24 18:59 06:59 18:59 Intake Total 650 Output Total 2049 Balance -1400 Intake: Hemodialysis 650 Output: Hemodialysis 2049 Other: Voiding Method Incontinent # Voids 1 - Exam Patient is awake, comfortable, no acute distress. Examination of the heart S1 and S2 Examination of the lungs bilateral breath sounds are heard Abdomen is soft nontender Examination of lower extremities shows no significant edema. EARTH SCIENCE TECHNICIAN exam grossly intact. Patient is moving all 4 extremities. - Labs CBC & Chem 7: 04/14/24 04:27 04/14/24 04:27 Labs: Abnormal Lab Results - Last 24 Hours (Table) 04/13/24 04/13/24 04/14/24 Range/Units 18:02 20:35 04:27 RBC 3.77 L (4.10-5.20) X 10*6/uL Hgb 11.8 L (12.0-15.0) g/dL Hct 36.5 L (37.2-46.3) % RDW 15.0 H (11.5-14.5) % Sodium (135-145) mmol/L Chloride (96-109) mmol/L Anion Gap (4.00-12.00) mmol/L Creatinine (0.6-1.5) mg/dL Est GFR (CKD-EPI) (>=60) BUN/Creatinine Ratio (12.00-20.00) Ratio POC Glucose (mg/dL) 116 H 115 H (70-110) mg/dL 04/14/24 04/14/24 04/14/24 Range/Units 04:27 11:37 16:32 RBC (4.10-5.20) X 10*6/uL Hgb (12.0-15.0) g/dL Hct (37.2-46.3) % RDW (11.5-14.5) % Sodium 133 L (135-145) mmol/L Chloride 94 L (96-109) mmol/L Anion Gap 12.60 H (4.00-12.00) mmol/L Creatinine 2.5 H (0.6-1.5) mg/dL Est GFR (CKD-EPI) 19 L (>=60) BUN/Creatinine Ratio 4.48 L (12.00-20.00) Ratio POC Glucose (mg/dL) 135 H 120 H (70-110) mg/dL Microbiology - Last 24 Hours (Table) 04/11/24 18:45 Blood Culture - Preliminary Blood 04/11/24 19:10 Blood Culture - Preliminary Blood Assessment and Plan Assessment: 1. Acute kidney injury currently hemodialysis dependent. Urine output has improved but not significant enough. 24-hour urine output was recently less than 500 cc. Patient is maintained on a Monday schedule. 2. Mental status changes, metabolic encephalopathy being followed by neurology. 3. History of new onset seizures in December of this year maintained on Vimpat 4. Benign hypertension Plan: Maintain hemodialysis on Monday schedule. Record urine output accurately. Continue with Lasix.
--- NOTE | 2024-04-14 17:35 | P.NPCON ---
History of Present Illness - Reason for Consult acute renal failure - History of Present Illness Patient is a 78-year-old female with history of acute kidney injury, ATN currently hemodialysis dependent. Patient was started on dialysis in January. Urine output remains low. Patient is maintained on hemodialysis on a Monday schedule. No history of hypotension recently on hemodialysis. Patient is admitted to the hospital with complaints of mental status changes. No history of fever chills nausea vomiting or abdominal pain. History of new onset seizures in December of this year. Patient is currently being followed by neurology. Initial CT of the brain on this admission was negative. No history of recent seizures. Review of Systems As per HPI Past Medical History Past Medical History: Dementia, Diabetes Mellitus, Dialysis, Hyperlipidemia, Hypertension, Renal Disease, Thyroid Disorder History of Any Multi-Drug Resistant Organisms: None Reported Date of last positivie culture/infection: 01/04/24 MDRO Source:: Urine Past Surgical History: Unable to Obtain Past Anesthesia/Blood Transfusion Reactions: No Reported Reaction Past Psychological History: Depression Smoking Status: Never smoker Past Alcohol Use History: None Reported Past Drug Use History: None Reported - Past Family History Brother(s) Additional Family Medical History / Comment(s): Unable to obtain due to patient's underlying dementia Medications and Allergies Home Medications Medication Instructions Recorded Confirmed Type Acetaminophen Tab [Tylenol] 500 - 1,000 mg PO Q6H PRN 07/27/22 04/11/24 History Aspirin EC [Ecotrin Low Dose] 81 mg PO DAILY 07/27/22 04/11/24 History Levothyroxine Sodium 100 mcg PO MOTUWETHFRSA@0600 07/27/22 04/11/24 History Simvastatin [Zocor] 80 mg PO DAILY 07/27/22 04/11/24 History Carbidopa-Levodopa 25-100 mg 1 tab PO QID@08,12,16,20 10/30/23 04/11/24 History [Sinemet 25-100 mg] Ferrous Sulfate [Iron (65 MG 325 mg PO DAILY 01/04/24 04/11/24 History Elemental)] Mirtazapine [Remeron] 7.5 mg PO HS tab 01/22/24 04/11/24 Rx Ascorbic Acid [Vitamin C] 500 mg PO DAILY 02/09/24 04/11/24 History Calcium Carbonate [Tums] 500 mg PO BID 02/09/24 04/11/24 History Cyanocobalamin [Vitamin B-12] 1,000 mcg PO DAILY 02/09/24 04/11/24 History Furosemide [Lasix] 60 mg PO DAILY 02/09/24 04/11/24 History INSULIN ASPART (NovoLOG) [NovoLOG See Protocol SQ ACHS MDD 90 units 02/09/24 04/11/24 History (formulary)] Lacosamide 100 mg PO BID 02/09/24 04/11/24 History Levothyroxine Sodium [Synthroid] 50 mcg PO CALABRESE@0600 02/09/24 04/11/24 History Magnesium Oxide [Mag-Ox] 400 mg PO DAILY 02/09/24 04/11/24 History Nephro-Oralia 1mg 1 tab PO DAILY 02/09/24 04/11/24 History Pantoprazole [Protonix] 40 mg PO BID 02/09/24 04/11/24 History amLODIPine [Norvasc] 5 mg PO DAILY 02/09/24 04/11/24 History Methoxy Peg-Epoetin Beta [Mircera] 100 mcg SQ Q14D 02/22/24 04/11/24 History Citalopram Hydrobromide [CeleXA] 20 mg PO DAILY 04/11/24 04/11/24 History Potassium Chloride ER [K-Dur 20] 20 meq PO DAILY 04/11/24 04/11/24 History Allergies Allergy/AdvReac Type Severity Reaction Status Date / Time peanut AdvReac Patient Verified 04/11/24 18:45 denies allergy Physical Exam Vitals: Vital Signs Temp Pulse Resp BP Pulse Ox 04/14/24 13:03 98.1 F 80 18 92/51 98 04/14/24 07:36 98.6 F 79 17 94/61 98 04/14/24 01:55 106/68 04/14/24 01:54 97.7 F 75 16 85/52 98 04/13/24 19:43 97.7 F 91 17 112/66 04/13/24 19:27 97.7 F 91 18 112/66 100 Patient is awake, comfortable, no acute distress. She does recognize me. Examination of the heart S1 and S2 Examination of the lungs bilateral breath sounds are heard Abdomen is soft nontender Examination of lower extremities shows no significant edema. Results - Lab Results Most recent lab results Calcium 9.6 mg/dL (8.7-10.3) 04/14/24 04:27 Phosphorus 1.9 mg/dL (2.5-4.5) L 04/11/24 18:40 Magnesium 2.0 mg/dL (1.5-2.4) 04/14/24 04:27 04/14/24 04:27 04/14/24 04:27 Assessment and Plan Assessment: 1. Acute kidney injury currently hemodialysis dependent. Urine output has improved but not significant enough. 24-hour urine output was recently less than 500 cc as outpatient. Patient is maintained on a Monday schedule via right IJ permacath. 2. Mental status changes, metabolic encephalopathy being followed by neurology. 3. History of new onset seizures in December of this year maintained on Vimpat 4. Benign hypertension Plan: Maintain hemodialysis on Monday schedule. Record urine output accurately. Continue with Lasix. Follow-up on blood cultures. Thank you for the consultation. We will continue to follow the patient with you during her hospitalization.
[2024-04-14 21:14] LABS: Glucose,Whole Blood 151 mg/dL (70-110)
[2024-04-15 06:17] LABS: Glucose,Whole Blood 111 mg/dL (70-110)
[2024-04-15 10:51] LABS: Basophils % (A) 0 %; Eosinophils # (A) 0.1 k/uL (0-0.7); Eosinophils % (A) 1 %; HCT 36.9 % (34.0-46.0); HGB 11.7 gm/dL (11.4-16.0); Lymphocytes # (A) 1.8 k/uL (1.0-4.8); Lymphocytes % (A) 22 %; MCH 30.6 pg (25.0-35.0); MCHC 31.8 g/dL (31.0-37.0); MCV 96.2 fL (80.0-100.0); Mean Platelet Volume 7.6; Monocytes # (A) 0.5 k/uL (0-1.0); Monocytes % (A) 6 %; Neutrophils # (A) 5.6 k/uL (1.3-7.7); Neutrophils % (A) 69 %; Platelet Count 236 k/uL (150-450); RBC 3.84 m/uL (3.80-5.40); RDW 15.2 % (11.5-15.5)
[2024-04-15 11:04] LABS: African American GFR (CKD) 9 (>60 ml/min/1.73 sqM); Anion Gap 12 mmol/L; Blood Urea Nitrogen 36 mg/dL (7-17); Calcium 9.6 mg/dL (8.4-10.2); Carbon Dioxide 22 mmol/L (22-30); Chloride 97 mmol/L (98-107); Glucose 208 mg/dL (74-99); Magnesium 2.2 mg/dL (1.6-2.3); Non-African American GFR(CKD) 8 (>60 ml/min/1.73 sqM); Potassium 5.5 mmol/L (3.5-5.1); Sodium 131 mmol/L (137-145)
[2024-04-15 11:36] LABS: Glucose,Whole Blood 138 mg/dL (70-110)
--- NOTE | 2024-04-15 11:46 | P.PN ---
Subjective Patient is seen in follow-up for end-stage renal disease. She is maintained on hemodialysis on Monday schedule. Resting in bed. No active complaints. Vital signs are stable. General: No acute distress. HEENT: Head exam is unremarkable. On room air. LUNGS: No audible rhonchi or wheezes. HEART: Rate and Rhythm are regular. ABDOMEN: Nontender. EXTREMITITES: No edema. Objective - Vital Signs Vital signs: Vital Signs Temp 97.8 F 04/15/24 07:28 Pulse 86 04/15/24 07:28 Resp 18 04/15/24 07:28 BP 101/57 04/15/24 07:28 Pulse Ox 100 04/15/24 07:28 FiO2 Intake & Output 04/14/24 04/15/24 04/15/24 18:59 06:59 18:59 Other: Voiding Method Incontinent Diaper Incontinent # Voids 3 1 - Labs CBC & Chem 7: 04/15/24 10:30 04/15/24 10:30 Labs: Abnormal Lab Results - Last 24 Hours (Table) 04/14/24 04/14/24 04/15/24 Range/Units 16:32 21:13 06:16 Sodium (137-145) mmol/L Potassium (3.5-5.1) mmol/L Chloride (98-107) mmol/L BUN (7-17) mg/dL Creatinine (0.52-1.04) mg/dL Glucose (74-99) mg/dL POC Glucose (mg/dL) 120 H 151 H 111 H (70-110) mg/dL 04/15/24 04/15/24 Range/Units 10:30 11:35 Sodium 131 L (137-145) mmol/L Potassium 5.5 H (3.5-5.1) mmol/L Chloride 97 L (98-107) mmol/L BUN 36 H (7-17) mg/dL Creatinine 4.78 H (0.52-1.04) mg/dL Glucose 208 H (74-99) mg/dL POC Glucose (mg/dL) 138 H (70-110) mg/dL Microbiology - Last 24 Hours (Table) 04/11/24 18:45 Blood Culture - Preliminary Blood 04/11/24 19:10 Blood Culture - Preliminary Blood Assessment and Plan Plan: Assessment: 1. End-stage renal disease maintained on hemodialysis on Monday schedule. 2. Metabolic encephalopathy being followed by neurology. 3. Seizure disorder. On Vimpat. 4. Benign hypertension. Blood pressure on the lower side. Plan: Hemodialysis tomorrow. Maintain Lasix. Lokelma 10 g once today. Stop potassium supplementation. Hold amlodipine for systolic blood pressure less than 120.
[2024-04-15] MEDS: SODIUM ZIRCONIUM CYCLOSILICATE 10 GM PACKET PO ONE (12:01)
--- NOTE | 2024-04-15 13:07 | P.DS ---
Providers Date of admission: 04/12/24 12:20 Expected date of discharge: 04/15/24 Attending physician: Jose Chang MD Consults: 04/12/24 03:03 Consult Physician Routine Consulting Provider: Morro Meyer Consult Reason/Comments: episodes of confusion Do you want consulting provider notified?: Yes 04/12/24 16:38 Consult Physician Routine Consulting Provider: Obdulia Gar Consult Reason/Comments: esrd Do you want consulting provider notified?: Yes Primary care physician: Daniel Lala MD Hospital Course: Acute metabolic encephalopathy Hypothyroid Diabetes mellitus Hypertension, controlled Gen: In NAD, non-toxic HEENT: normocephalic, atraumatic, hearing acuity is intant, mucous membranes moist CVS: perfusing all extremities well, no pitting edema, Respiratory: symmetric chest expansion, no accessory muscle use, GI: soft, NTTP, ND, : no suprapubic tenderness, no CVA tenderness MSK/Derm: no rashes, cyanosis Neuro: CN II-XII intact, no motor weakness, Psych: cooperative, euthymic mood, judgment and insight is intact Hospital course: 78-year-old female end-stage renal disease on hemodialysis through right permacath diabetes mellitus hypertension coming in for evaluation of recurrent episodes of confusion. Initial workup: Blood work reviewed White count 7.9 hemoglobin 12.3 Sodium 137 potassium 4.7 BUN 13 creatinine [address] of the brain no acute intracranial pathology Follow up: Patient was seen in consultation with neurology, who ordered an EEG. EEG showed metabolic encephalopathy, but no signs of seizure activity. Patient improved with conservative management and ongoing dialysis per schedule. She felt back to baseline by the day of discharge. No infectious signs were noted, chest x- ray was negative for pneumonia. Patient will go home with home care and follow- up with primary care physician I spent 34 min coordinating this discharge Patient Condition at Discharge: Good Plan - Discharge Summary Discharge Rx Participant: No New Discharge Prescriptions: Continue Levothyroxine Sodium 100 mcg PO MOTUWETHFRSA@0600 Pantoprazole [Protonix] 40 mg PO BID Calcium Carbonate [Tums] 500 mg PO BID Cyanocobalamin [Vitamin B-12] 1,000 mcg PO DAILY Ascorbic Acid [Vitamin C] 500 mg PO DAILY Magnesium Oxide [Mag-Ox] 400 mg PO DAILY Levothyroxine Sodium [Synthroid] 50 mcg PO CALABRESE@0600 Citalopram Hydrobromide [CeleXA] 20 mg PO DAILY Acetaminophen Tab [Tylenol] 500 - 1,000 mg PO Q6H PRN PRN Reason: Pain Simvastatin [Zocor] 80 mg PO DAILY Aspirin EC [Ecotrin Low Dose] 81 mg PO DAILY Carbidopa-Levodopa 25-100 mg [Sinemet 25-100 mg] 1 tab PO QID@08,12,16,20 Ferrous Sulfate [Iron (65 MG Elemental)] 325 mg PO DAILY Mirtazapine [Remeron] 7.5 mg PO HS tab INSULIN ASPART (NovoLOG) [NovoLOG (formulary)] See Protocol SQ ACHS MDD 90 units Lacosamide 100 mg PO BID Nephro-Oralia 1mg 1 tab PO DAILY Furosemide [Lasix] 60 mg PO DAILY amLODIPine [Norvasc] 5 mg PO DAILY Methoxy Peg-Epoetin Beta [Mircera] 100 mcg SQ Q14D Potassium Chloride ER [K-Dur 20] 20 meq PO DAILY Discharge Medication List Acetaminophen Tab [Tylenol] 500 - 1,000 mg PO Q6H PRN 07/27/22 [History] Aspirin EC [Ecotrin Low Dose] 81 mg PO DAILY 07/27/22 [History] Levothyroxine Sodium 100 mcg PO MOTUWETHFRSA@0600 07/27/22 [History] Simvastatin [Zocor] 80 mg PO DAILY 07/27/22 [History] Carbidopa-Levodopa 25-100 mg [Sinemet 25-100 mg] 1 tab PO QID@08,12,16,20 10/30/23 [History] Ferrous Sulfate [Iron (65 MG Elemental)] 325 mg PO DAILY 01/04/24 [History] Mirtazapine [Remeron] 7.5 mg PO HS tab 01/22/24 [Rx] Ascorbic Acid [Vitamin C] 500 mg PO DAILY 02/09/24 [History] Calcium Carbonate [Tums] 500 mg PO BID 02/09/24 [History] Cyanocobalamin [Vitamin B-12] 1,000 mcg PO DAILY 02/09/24 [History] Furosemide [Lasix] 60 mg PO DAILY 02/09/24 [History] INSULIN ASPART (NovoLOG) [NovoLOG (formulary)] See Protocol SQ ACHS MDD 90 units 02/09/24 [History] Lacosamide 100 mg PO BID 02/09/24 [History] Levothyroxine Sodium [Synthroid] 50 mcg PO CALABRESE@0600 02/09/24 [History] Magnesium Oxide [Mag-Ox] 400 mg PO DAILY 02/09/24 [History] Nephro-Oralia 1mg 1 tab PO DAILY 02/09/24 [History] Pantoprazole [Protonix] 40 mg PO BID 02/09/24 [History] amLODIPine [Norvasc] 5 mg PO DAILY 02/09/24 [History] Methoxy Peg-Epoetin Beta [Mircera] 100 mcg SQ Q14D 02/22/24 [History] Citalopram Hydrobromide [CeleXA] 20 mg PO DAILY 04/11/24 [History] Potassium Chloride ER [K-Dur 20] 20 meq PO DAILY 04/11/24 [History] Follow up Appointment(s)/Referral(s): Daniel Lala MD [Primary Care Provider] - 04/23/24 10:00 am (With [facility] office) [facility] Visiting Nurse, [NON-STAFF] - As Needed Discharge Disposition: HOME WITH HOME HEALTH SERVICES
[2024-04-15 13:22] VITALS: PULSE 86
[2024-04-15 13:49] VITALS: BP 107/67; TEMP 98.4
== END 2024-04-15 13:44 | disposition home health service (06) | DRG 70 ==
LOC: EC 16:26 → 6NMEDSUR 21:30 → 4SSUR 04-12 12:16 → OBSVTOIN 04-12 12:20 → 4SSUR 04-12 13:52
PROVIDERS: ADMIT Internal Medicine; ATTEND Internal Medicine
PROC: 5A1D70Z Performance of Urinary Filtration, Intermittent, Less than 6 Hours Per Day (ICD-10-PCS; principal; 2024-04-13)
DX: G93.41 Metabolic encephalopathy (principal); N18.6 End stage renal disease; I12.0 Hypertensive chronic kidney disease with stage 5 chronic kidney disease or end stage renal disease; F02.83 Dementia in other diseases classified elsewhere, unspecified severity, with mood disturbance; R47.01 Aphasia; N17.9 Acute kidney failure, unspecified; E11.22 Type 2 diabetes mellitus with diabetic chronic kidney disease; Z99.2 Dependence on renal dialysis; E03.9 Hypothyroidism, unspecified; D50.9 Iron deficiency anemia, unspecified; D63.1 Anemia in chronic kidney disease; Z66 Do not resuscitate; G40.909 Epilepsy, unspecified, not intractable, without status epilepticus; E78.5 Hyperlipidemia, unspecified; G20.A1 Parkinson's disease without dyskinesia, without mention of fluctuations; G30.9 Alzheimer's disease, unspecified; F32.A Depression, unspecified; Z87.440 Personal history of urinary (tract) infections; Z79.899 Other long term (current) drug therapy; Z79.890 Hormone replacement therapy; Z79.84 Long term (current) use of oral hypoglycemic drugs; Z79.82 Long term (current) use of aspirin
CPT/HCPCS: 36415; 70450; 71046; 80048; 80053; 80320; 82140; 83036; 83735; 84100; 84443; 84484; 85025; 85610; 85730; 87040; 90935; 93005; 93880; 95816; 96372; 99285

== ENCOUNTER 2024-08-18 13:43 | Inpatient (IN) | payer MEDICARE ==
--- NOTE | 2024-08-18 14:43 | ED ---
General Adult HPI - General Source: patient, RN notes reviewed, old records reviewed Mode of arrival: ambulatory Limitations: no limitations <Mesfin Hutchison - Last Filed: 08/18/24 16:42> - General Source: patient, RN notes reviewed, old records reviewed Mode of arrival: ambulatory Limitations: no limitations <Ritchie Singh - Last Filed: 08/20/24 12:37> - General Chief complaint: Psychiatric Symptoms Stated complaint: AMS Time Seen by Provider: 08/18/24 13:50 - History of Present Illness Initial comments: This is an 79-year-old female to the ER for evaluation of altered mental status with hallucinations and more agitation (Mesfin Hutchison) 79-year-old female history of end-stage renal disease and dementia presenting with altered mental status, and frequent hallucination. Patient brought in by her states she has been more agitated and appears to be hallucinating almost constantly. Patient has not had any fever. reports that there is been no vomiting. No physical complaints. Seems to be having both auditory and visual hallucination. No history of psychiatric illness. (Ritchie Singh) - Related Data Home Medications Medication Instructions Recorded Confirmed Levothyroxine Sodium 100 mcg PO MOTUWETHFRSA@0600 07/27/22 08/18/24 Simvastatin [Zocor] 80 mg PO DAILY 07/27/22 08/18/24 Carbidopa-Levodopa 25-100 mg 1 tab PO QID@08,12,16,20 10/30/23 08/18/24 [Sinemet 25-100 mg] Ferrous Sulfate [Iron (65 MG 325 mg PO DAILY 01/04/24 08/18/24 Elemental)] Ascorbic Acid [Vitamin C] 500 mg PO DAILY 02/09/24 08/18/24 Furosemide [Lasix] 60 mg PO DAILY 02/09/24 08/18/24 INSULIN ASPART (NovoLOG) [NovoLOG See Protocol SQ ACHS PRN 02/09/24 08/18/24 (formulary)] Levothyroxine Sodium [Synthroid] 50 mcg PO CALABRESE@0600 02/09/24 08/18/24 Magnesium Oxide [Mag-Ox] 200 mg PO HS 02/09/24 08/18/24 Pantoprazole [Protonix] 40 mg PO BID 02/09/24 08/18/24 amLODIPine [Norvasc] 5 mg PO DAILY 02/09/24 08/18/24 Potassium Chloride ER [K-Dur 20] 20 meq PO DAILY 04/11/24 08/18/24 Citalopram Hydrobromide [CeleXA] 20 mg PO DAILY 08/18/24 08/18/24 Lacosamide [Vimpat] 100 mg PO BID 08/18/24 08/18/24 Mirtazapine [Remeron] 15 mg PO HS 08/18/24 08/18/24 Allergies Allergy/AdvReac Type Severity Reaction Status Date / Time peanut AdvReac Patient Verified 08/18/24 18:18 denies allergy Review of Systems ROS Other: All systems not noted in ROS Statement are negative. <Mesfin Hutchison - Last Filed: 08/18/24 16:42> ROS Other: All systems not noted in ROS Statement are negative. <Ritchie Singh - Last Filed: 08/20/24 12:37> ROS Statement: Those systems with pertinent positive or pertinent negative responses have been documented in the HPI. Past Medical History Past Medical History: Dementia, Diabetes Mellitus, Dialysis, Hyperlipidemia, Hypertension, Renal Disease, Thyroid Disorder History of Any Multi-Drug Resistant Organisms: None Reported Date of last positivie culture/infection: 01/04/24 MDRO Source:: Urine Past Surgical History: Unable to Obtain Past Anesthesia/Blood Transfusion Reactions: No Reported Reaction Past Psychological History: Depression Smoking Status: Never smoker Past Alcohol Use History: None Reported Past Drug Use History: None Reported - Past Family History Brother(s) Additional Family Medical History / Comment(s): Unable to obtain due to patient's underlying dementia <Ritchie Singh - Last Filed: 08/20/24 12:37> General Exam Limitations: altered mental status General appearance: alert, in no apparent distress Head exam: Present: atraumatic, normocephalic, normal inspection Eye exam: Present: normal appearance, PERRL, EOMI. Absent: scleral icterus, conjunctival injection, periorbital swelling ENT exam: Present: normal exam, mucous membranes moist Neck exam: Present: normal inspection. Absent: tenderness, meningismus, lymphadenopathy Respiratory exam: Present: normal lung sounds bilaterally. Absent: respiratory distress, wheezes, rales, rhonchi, stridor Cardiovascular Exam: Present: regular rate, normal rhythm, normal heart sounds. Absent: systolic murmur, diastolic murmur, rubs, gallop, clicks GI/Abdominal exam: Present: soft, normal bowel sounds. Absent: distended, tenderness, guarding, rebound, rigid Extremities exam: Present: normal inspection, full ROM, normal capillary refill. Absent: tenderness, pedal edema, joint swelling, calf tenderness Back exam: Present: normal inspection Neurological exam: Present: alert, oriented X3, CN II-XII intact Psychiatric exam: Present: normal affect, normal mood Skin exam: Present: warm, dry, intact, normal color. Absent: rash <Mesfin Hutchison - Last Filed: 08/18/24 16:42> Limitations: no limitations General appearance: alert, in no apparent distress Head exam: Present: atraumatic, normocephalic Eye exam: Present: normal appearance, PERRL ENT exam: Present: mucous membranes dry Neck exam: Present: normal inspection. Absent: tenderness, meningismus Respiratory exam: Present: normal lung sounds bilaterally. Absent: respiratory distress, wheezes Cardiovascular Exam: Present: regular rate, normal rhythm GI/Abdominal exam: Present: soft. Absent: distended, tenderness, guarding, rebound Extremities exam: Present: normal inspection Neurological exam: Present: alert, CN II-XII intact. Absent: oriented X3, motor sensory deficit Psychiatric exam: Present: agitated Skin exam: Present: warm, dry, intact <Ritchie Singh - Last Filed: 08/20/24 12:37> Course <Mesfin Hutchison - Last Filed: 08/18/24 16:42> Vital Signs 08/18/24 08/18/24 13:44 20:11 Temperature 97.8 F Pulse Rate 108 H 71 Respiratory 20 16 Rate Blood Pressure 138/85 118/68 O2 Sat by Pulse 99 98 Oximetry - Reevaluation(s) Reevaluation #1: 08/18/24 16:43 Medical records reviewed (Mesfin Hutchison) Reevaluation #2: 08/18/24 16:43 Patient symptoms unchanged (Mesfin Hutchison) Reevaluation #3: 08/18/24 16:43 Patient informed of results and questions answered (Mesfin Hutchison) - Consultations Consultation #1: Spoke with admitting physicians who agreed to admit this patient (Mesfin Hutchison) Medical Decision Making - Lab Data Result diagrams: 08/18/24 14:41 08/18/24 14:41 - Radiology Data Radiology results: report reviewed (CT brain is negative for acute disease), image reviewed <Mesfin Hutchison - Last Filed: 08/18/24 16:42> - Lab Data Result diagrams: 08/19/24 04:17 08/20/24 04:22 <Ritchie Singh - Last Filed: 08/20/24 12:37> - Medical Decision Making 79 female to ER for evaluation patient will be admitted for altered mental status, dementia with acute psychosis for further evaluation by psychiatry (Mesfin Hutchison) Was pt. sent in by a medical professional or institution (, PA, AUTO TRANSMISSION TECHNICIAN, urgent care, hospital, or longterm...) When possible be specific @ -No Did you speak to anyone other than the patient for history (EMS, parent, family, police, friend...)? What history was obtained from this source @ -No Did you review nursing and triage notes (agree or disagree)? Why? @ -I reviewed and agree with nursing and triage notes Were old charts reviewed (outside hosp., previous admission, EMS record, old EKG, old radiological studies, urgent care reports/EKG's, longterm records)? Report findings @ -No old charts were reviewed Differential Altered Mental Status: Hypoglycemia, DKA, hypercapnia, ETOH, overdose, CO poisoning, trauma, myxedema coma, HTN encephalopathy, infection, encephalitis, psychosis, intercranial hemorrhage, hepatic encephalopathy, meningitis, CVA, this is not meant to be an all-inclusive list EKG interpreted by me (3pts min.). @ -As above X-rays interpreted by me (1pt min.). @ -None done CT interpreted by me (1pt min.). @ -CT pending U/S interpreted by me (1pt. min.). @ -None done What testing was considered but not performed or refused? (CT, X-rays, U/S, labs )? Why? @ -None What meds were considered but not given or refused? Why? @ -None Did you discuss the management of the patient with other professionals (professionals i.e. DrNyla, PA, AUTO TRANSMISSION TECHNICIAN, lab, RT, psych nurse, director social service, bearingizer, teacher, loan service officer, business case analyst)? Give summary @ -No Was smoking cessation discussed for >3mins.? @ -No Was critical care preformed (if so, how long)? @ -No Were there social determinants of health that impacted care today? How? (Homelessness, low income, unemployed, alcoholism, drug addiction, transportation, low edu. Level, literacy, decrease access to med. care, residential, rehab)? @ -No Was there de-escalation of care discussed even if they declined (Discuss DNR or withdrawal of care, Hospice)? DNR status @ -No What co-morbidities impacted this encounter? (DM, HTN, Smoking, COPD, CAD, Cancer, CVA, ARF, Chemo, Hep., AIDS, mental health diagnosis, sleep apnea, morbid obesity)? @Dementia, end-stage renal disease Was patient admitted / discharged? Hospital course, mention meds given and route, prescriptions, significant lab abnormalities, going to OR and other pertinent info. @ -Patient care signed out at shift change to Dr. Hutchison awaiting CT imaging. (Ritchie Singh) - Lab Data Lab Results 08/18/24 08/18/24 08/18/24 Range/Units 14:41 14:41 14:41 WBC 6.3 (3.8-10.6) k/uL RBC 3.87 (3.80-5.40) m/uL Hgb 12.3 (11.4-16.0) gm/dL Hct 36.8 (34.0-46.0) % MCV 95.2 (80.0-100.0) fL MCH 31.8 (25.0-35.0) pg MCHC 33.4 (31.0-37.0) g/dL RDW 16.2 H (11.5-15.5) % Plt Count 179 (150-450) k/uL MPV 8.1 Neutrophils % 75 % Lymphocytes % 17 % Monocytes % 6 % Eosinophils % 0 % Basophils % 0 % Neutrophils # 4.7 (1.3-7.7) k/uL Lymphocytes # 1.1 (1.0-4.8) k/uL Monocytes # 0.4 (0-1.0) k/uL Eosinophils # 0.0 (0-0.7) k/uL Basophils # 0.0 (0-0.2) k/uL Poikilocytosis Slight Anisocytosis Slight Sodium 137 (137-145) mmol/L Potassium 4.9 (3.5-5.1) mmol/L Chloride 99 (98-107) mmol/L Carbon Dioxide 29 (22-30) mmol/L Anion Gap 9 mmol/L BUN 30 H (7-17) mg/dL Creatinine 3.32 H (0.52-1.04) mg/dL Est GFR (CKD-EPI)AfAm 14 (>60 ml/min/1.73 sqM) Est GFR (CKD-EPI)NonAf 13 (>60 ml/min/1.73 sqM) Glucose 153 H (74-99) mg/dL Calcium 9.7 (8.4-10.2) mg/dL Total Bilirubin 0.9 (0.2-1.3) mg/dL AST 20 (14-36) U/L ALT 7 (4-34) U/L Alkaline Phosphatase 85 (38-126) U/L Total Protein 7.4 (6.3-8.2) g/dL Albumin 4.5 (3.5-5.0) g/dL Urine Color Colorless Urine Appearance Clear (Clear) Urine pH 7.5 (5.0-8.0) Ur Specific B[place] 1.006 (1.001-1.035) Urine Protein Trace H (Negative) Urine Glucose (UA) Negative (Negative) Urine Ketones Negative (Negative) Urine Blood Moderate H (Negative) Urine Nitrite Negative (Negative) Urine Bilirubin Negative (Negative) Urine Urobilinogen <2.0 (<2.0) mg/dL Ur Leukocyte Esterase Negative (Negative) Urine RBC 36 H (0-5) /hpf Urine WBC 2 (0-5) /hpf Ur Squamous Epith Cells 6 H (0-4) /hpf Urine Bacteria Occasional H (None) /hpf Urine Opiates Screen Not Detected (NotDetected) Ur Oxycodone Screen Not Detected (NotDetected) Urine Methadone Screen Not Detected (NotDetected) Ur Barbiturates Screen Not Detected (NotDetected) U Tricyclic Antidepress Not Detected (NotDetected) Ur Phencyclidine Scrn Not Detected (NotDetected) Ur Amphetamines Screen Not Detected (NotDetected) U Methamphetamines Scrn Not Detected (NotDetected) U Benzodiazepines Scrn Not Detected (NotDetected) Urine Cocaine Screen Not Detected (NotDetected) U Marijuana (THC) Screen Not Detected (NotDetected) Disposition <Mesfin Hutchison B - Last Filed: 08/18/24 16:42> Is patient prescribed a controlled substance at d/c from ED?: No <Ritchie Singh - Last Filed: 08/20/24 12:37> Clinical Impression: Altered mental status, Acute psychosis Disposition: ADMITTED IP TO THIS HOSP Condition: Stable
[2024-08-18 14:51] LABS: Anisocytosis Slight; Basophils % (A) 0 %; Eosinophils % (A) 0 %; HCT 36.8 % (34.0-46.0); HGB 12.3 gm/dL (11.4-16.0); Lymphocytes # (A) 1.1 k/uL (1.0-4.8); Lymphocytes % (A) 17 %; MCH 31.8 pg (25.0-35.0); MCHC 33.4 g/dL (31.0-37.0); MCV 95.2 fL (80.0-100.0); Mean Platelet Volume 8.1; Monocytes # (A) 0.4 k/uL (0-1.0); Monocytes % (A) 6 %; Neutrophils # (A) 4.7 k/uL (1.3-7.7); Neutrophils % (A) 75 %; Platelet Count 179 k/uL (150-450); Poikilocytosis Slight; RBC 3.87 m/uL (3.80-5.40); RDW 16.2 % (11.5-15.5); WBC 6.3 k/uL (3.8-10.6)
[2024-08-18 14:57] LABS: Appearance,Urine Clear (Clear); Bacteria,Urine Occasional /hpf; Bilirubin,Urine Negative (Negative); Blood,Urine Moderate (Negative); Color,Urine Colorless; Glucose,Urine (UA) Negative (Negative); Ketones,Urine Negative (Negative); Leukocyte Esterase,Urine Negative (Negative); Nitrite,Urine Negative (Negative); PH, Urine 7.5 (5.0-8.0); Protein,Urine Trace (Negative); RBC,Urine 36 /hpf (0-5); Specific Gravity,Urine 1.006 (1.001-1.035); Squamous Epithelial Cell,Urine 6 /hpf (0-4); Urobilinogen,Urine <2.0 mg/dL (<2.0); WBC,Urine 2 /hpf (0-5)
[2024-08-18 14:59] LABS: ALT 7 U/L (4-34); AST 20 U/L (14-36); African American GFR (CKD) 14 (>60 ml/min/1.73 sqM); Albumin 4.5 g/dL (3.5-5.0); Alkaline Phosphatase 85 U/L (38-126); Anion Gap 9 mmol/L; Blood Urea Nitrogen 30 mg/dL (7-17); Calcium 9.7 mg/dL (8.4-10.2); Carbon Dioxide 29 mmol/L (22-30); Chloride 99 mmol/L (98-107); Glucose 153 mg/dL (74-99); Non-African American GFR(CKD) 13 (>60 ml/min/1.73 sqM); Potassium 4.9 mmol/L (3.5-5.1); Sodium 137 mmol/L (137-145); Total Bilirubin 0.9 mg/dL (0.2-1.3); Total Protein 7.4 g/dL (6.3-8.2)
[2024-08-18 15:02] LABS: Amphetamine Screen,Urine Not Detected (NotDetected); Barbiturate Screen,Urine Not Detected (NotDetected); Benzodiazepines Screen,Urine Not Detected (NotDetected); Cocaine Screen,Urine Not Detected (NotDetected); Methadone Screen, Urine Not Detected (NotDetected); Opiate Screen,Urine Not Detected (NotDetected); Oxycodone Screen, Urine Not Detected (NotDetected); Phencyclidine Screen,Urine Not Detected (NotDetected); Tricyclic Antidepressant,Urine Not Detected (NotDetected); Urn Cannabinoid Scrn Not Detected (NotDetected)
--- NOTE | 2024-08-18 15:40 | CT ---
EXAMINATION TYPE: CT brain wo con CT DLP: 1098.4 mGycm, Automated exposure control for dose reduction was used. DATE OF EXAM: 08/18/2024 3:33 PM COMPARISON: 04/11/2024. CLINICAL INDICATION: Female, 79 years old with history of AMS, ams TECHNIQUE: Brain: Axial CT images of the brain were obtained with coronal and sagittal reformats created and rev iewed. Contrast used: None. Oral contrast used: None. FINDINGS: Brain: Extra-axial spaces: No abnormal extra-axial fluid collections. Ventricular system: Dilatation in proportion to cerebral atrophy. Cerebral parenchyma: Cerebral atrophy. No acute intraparenchymal hemorrhage or mass effect. The butler -white junction is well differentiated. Scattered hypoattenuating areas are seen within the white mat ter. Cerebellum: Unremarkable. Mass effect: No evidence of midline shift. Intracranial vasculature: unremarkable Soft tissues: Normal. Calvarium/osseous structures: No depressed skull fracture. Paranasal sinuses and mastoid air cells: Mild scattered paranasal sinus disease. Visualized orbits: Bilateral aphakia IMPRESSION: 1. No acute intracranial process. 2. Nonspecific white matter changes, likely secondary to chronic small vessel ischemic disease. [facility], , 08/18/2024 3:38 PM
[2024-08-18] MEDS ORDERED: ONDANSETRON 4 MG/2 ML VIAL IVP PRN (16:44)
[2024-08-18] MEDS ORDERED: NALOXONE 0.4 MG/ML 1 ML VIAL IV PRN (16:44)
[2024-08-18] MEDS: SODIUM CHLORIDE 0.9% 1,000 ML IV SCH (17:05)
--- NOTE | 2024-08-18 18:01 | P.HPIM ---
History of Present Illness H&P Date: 08/18/24 Chief Complaint: visual hallucinations 79-year-old woman with a medical history of end-stage renal disease on hemodialysis, dementia presented for evaluation of visual hallucinations. Patient was brought in by her with concerns that her baseline confusion had worsened in recent days. Patient herself is a poor historian. Her only complaint at this time is constipation. In the ER, the patient was afebrile, 138/85, HR 108, 99% on room air. CBC unremarkable. BMP showed BUN of 30, Cr 3.32. LFTs unremarkable. UA shows moderate blood, 36 WBC, 6 Squamous cells. UTox negative. Brain CT showed no acute intracranial process. All Systems reviewed and pertinent positives and negatives noted in HPI, all other symptoms are negative Gen: In NAD, non-toxic HEENT: normocephalic, atraumatic, hearing acuity is intant, mucous membranes moist CVS: perfusing all extremities well, no pitting edema, Respiratory: symmetric chest expansion, no accessory muscle use, GI: soft, NTTP, ND, : no suprapubic tenderness, no CVA tenderness MSK/Derm: no rashes, cyanosis Neuro: CN II-XII intact, no motor weakness, Psych: cooperative, euthymic mood, judgment and insight is intact Labs and images as above Assessment/plan: Acute metabolic encephalopathy Visual Hallucinations -Fall precautions -Neurochecks -Neurology consultation, appreciated ESRD -nephrology consult Hypothyroid -Continue with levothyroxine Diabetes mellitus -Insulin sliding scale Hypertension, controlled -Continue with amlodipine DVT prophylaxis heparin subcu GI prophylaxis CODE STATUS DNR Past Medical History Past Medical History: Dementia, Diabetes Mellitus, Dialysis, Hyperlipidemia, Hypertension, Renal Disease, Thyroid Disorder History of Any Multi-Drug Resistant Organisms: None Reported Date of last positivie culture/infection: 01/04/24 MDRO Source:: Urine Past Surgical History: Unable to Obtain Past Anesthesia/Blood Transfusion Reactions: No Reported Reaction Past Psychological History: Depression Smoking Status: Never smoker Past Alcohol Use History: None Reported Past Drug Use History: None Reported - Past Family History Brother(s) Additional Family Medical History / Comment(s): Unable to obtain due to patient's underlying dementia Medications and Allergies Home Medications Medication Instructions Recorded Confirmed Type Acetaminophen Tab [Tylenol] 500 - 1,000 mg PO Q6H PRN 07/27/22 04/11/24 History Aspirin EC [Ecotrin Low Dose] 81 mg PO DAILY 07/27/22 04/11/24 History Levothyroxine Sodium 100 mcg PO MOTUWETHFRSA@0600 07/27/22 04/11/24 History Simvastatin [Zocor] 80 mg PO DAILY 07/27/22 04/11/24 History Carbidopa-Levodopa 25-100 mg 1 tab PO QID@08,12,16,20 10/30/23 04/11/24 History [Sinemet 25-100 mg] Ferrous Sulfate [Iron (65 MG 325 mg PO DAILY 01/04/24 04/11/24 History Elemental)] Mirtazapine [Remeron] 7.5 mg PO HS tab 01/22/24 04/11/24 Rx Ascorbic Acid [Vitamin C] 500 mg PO DAILY 02/09/24 04/11/24 History Calcium Carbonate [Tums] 500 mg PO BID 02/09/24 04/11/24 History Cyanocobalamin [Vitamin B-12] 1,000 mcg PO DAILY 02/09/24 04/11/24 History Furosemide [Lasix] 60 mg PO DAILY 02/09/24 04/11/24 History INSULIN ASPART (NovoLOG) [NovoLOG See Protocol SQ ACHS MDD 90 units 02/09/24 04/11/24 History (formulary)] Lacosamide 100 mg PO BID 02/09/24 04/11/24 History Levothyroxine Sodium [Synthroid] 50 mcg PO CALABRESE@0600 02/09/24 04/11/24 History Magnesium Oxide [Mag-Ox] 400 mg PO DAILY 02/09/24 04/11/24 History Nephro-Oralia 1mg 1 tab PO DAILY 02/09/24 04/11/24 History Pantoprazole [Protonix] 40 mg PO BID 02/09/24 04/11/24 History amLODIPine [Norvasc] 5 mg PO DAILY 02/09/24 04/11/24 History Methoxy Peg-Epoetin Beta [Mircera] 100 mcg SQ Q14D 02/22/24 04/11/24 History Citalopram Hydrobromide [CeleXA] 20 mg PO DAILY 04/11/24 04/11/24 History Potassium Chloride ER [K-Dur 20] 20 meq PO DAILY 04/11/24 04/11/24 History Allergies Allergy/AdvReac Type Severity Reaction Status Date / Time peanut AdvReac Patient Verified 08/18/24 13:49 denies allergy Physical Exam Osteopathic Statement: *. No significant issues noted on an osteopathic structural exam other than those noted in the History and Physical/Consult. Vitals: Vital Signs Temp Pulse Resp BP Pulse Ox 08/18/24 13:44 97.8 F 108 H 20 138/85 99 Intake and Output 08/18/24 08/18/24 08/18/24 06:59 14:59 22:59 Other: Weight 43.091 kg Results CBC & Chem 7: 08/18/24 14:41 08/18/24 14:41 Labs: Abnormal Lab Results - Last 24 Hours (Table) 08/18/24 08/18/24 08/18/24 Range/Units 14:41 14:41 14:41 RDW 16.2 H (11.5-15.5) % BUN 30 H (7-17) mg/dL Creatinine 3.32 H (0.52-1.04) mg/dL Glucose 153 H (74-99) mg/dL Urine Protein Trace H (Negative) Urine Blood Moderate H (Negative) Urine RBC 36 H (0-5) /hpf Ur Squamous Epith Cells 6 H (0-4) /hpf Urine Bacteria Occasional H (None) /hpf
[2024-08-19] MEDS: MELATONIN 5 MG TABLET PO STA (02:35)
[2024-08-19 08:48] LABS: ALT 9 U/L (8-44); AST 20 U/L (13-35); Albumin/Globulin Ratio 1.74 Ratio (1.60-3.17); Alkaline Phosphatase 94 U/L (41-126); Basophils # (A) 0.02 X 10*3/uL (0.00-0.10); Basophils % (A) 0.3 %; Blood Urea Nitrogen 36.1 mg/dL (9.0-27.0); Calcium 9.1 mg/dL (8.7-10.3); Carbon Dioxide 27.5 mmol/L (21.6-31.8); Chloride 103 mmol/L (96-109); Eosinophils # (A) 0.07 X 10*3/uL (0.04-0.35); Globulin 2.3 g/dL (1.6-3.3); Glucose 117 mg/dL (70-110); HCT 35.3 % (37.2-46.3); HGB 11.2 g/dL (12.0-15.0); Lymphocytes # (A) 1.67 X 10*3/uL (0.90-5.00); Lymphocytes % (A) 24.8 %; MCH 31.6 pg (27.0-32.0); MCHC 31.7 g/dL (32.0-37.0); MCV 99.7 FL (80.0-97.0); Magnesium 2.6 mg/dL (1.5-2.4); Mean Platelet Volume 10.8 FL (9.5-12.2); Monocytes # (A) 0.56 X 10*3/uL (0.20-1.00); Monocytes % (A) 8.3 %; NRBC Per 100 WBC 0 X 10*3/uL (0.00-0.01); Neutrophils % (A) 65.3 %; Phosphorus 5.8 mg/dL (2.4-5.1); Platelet Count 178 X 10*3/uL (140-440); Potassium 4.8 mmol/L (3.5-5.5); RBC 3.54 X 10*6/uL (4.10-5.20); RDW 15.8 % (11.5-14.5); Sodium 143 mmol/L (135-145); Total Bilirubin 0.3 mg/dL (0.3-1.2); Total Protein 6.3 g/dL (6.2-8.2); WBC 6.74 X 10*3/uL (4.50-10.00)
--- NOTE | 2024-08-19 08:53 | P.NPCON ---
History of Present Illness - Reason for Consult end stage renal disease - History of Present Illness Reason for consultation: End-stage renal disease History of present illness: Patient is a 79-year-old female seen in renal consultation for end-stage renal disease. She is maintained on hemodialysis on Monday schedule via permacath. Last dialysis was Monday. Patient is poor historian and is not sure why she is in the hospital. It is noted in the chart that she was brought in by her due to altered mental status and hallucinations. Brain CT showed no acute process. Hemodynamically stable. Patient does have history of diabetes. She denies history of coronary artery disease. No chest pain or shortness of breath. No fever or chills. No vomiting or diarrhea. Vital signs are stable. General: No acute distress. HEENT: Head exam is unremarkable. LUNGS: No audible rhonchi or wheezes. HEART: Rate and Rhythm are regular. ABDOMEN: Nontender. EXTREMITITES: No edema. Past Medical History Past Medical History: Dementia, Diabetes Mellitus, Dialysis, Hyperlipidemia, Hypertension, Renal Disease, Thyroid Disorder History of Any Multi-Drug Resistant Organisms: None Reported Date of last positivie culture/infection: 01/04/24 MDRO Source:: Urine Past Surgical History: Unable to Obtain Past Anesthesia/Blood Transfusion Reactions: No Reported Reaction Past Psychological History: Depression Smoking Status: Never smoker Past Alcohol Use History: None Reported Past Drug Use History: None Reported - Past Family History Brother(s) Additional Family Medical History / Comment(s): Unable to obtain due to patient's underlying dementia Medications and Allergies Home Medications Medication Instructions Recorded Confirmed Type Levothyroxine Sodium 100 mcg PO MOTUWETHFRSA@0600 07/27/22 08/18/24 History Simvastatin [Zocor] 80 mg PO DAILY 07/27/22 08/18/24 History Carbidopa-Levodopa 25-100 mg 1 tab PO QID@08,12,16,20 10/30/23 08/18/24 History [Sinemet 25-100 mg] Ferrous Sulfate [Iron (65 MG 325 mg PO DAILY 01/04/24 08/18/24 History Elemental)] Ascorbic Acid [Vitamin C] 500 mg PO DAILY 02/09/24 08/18/24 History Furosemide [Lasix] 60 mg PO DAILY 02/09/24 08/18/24 History INSULIN ASPART (NovoLOG) [NovoLOG See Protocol SQ ACHS PRN 02/09/24 08/18/24 History (formulary)] Levothyroxine Sodium [Synthroid] 50 mcg PO CALABRESE@0600 02/09/24 08/18/24 History Magnesium Oxide [Mag-Ox] 200 mg PO HS 02/09/24 08/18/24 History Pantoprazole [Protonix] 40 mg PO BID 02/09/24 08/18/24 History amLODIPine [Norvasc] 5 mg PO DAILY 02/09/24 08/18/24 History Potassium Chloride ER [K-Dur 20] 20 meq PO DAILY 04/11/24 08/18/24 History Citalopram Hydrobromide [CeleXA] 20 mg PO DAILY 08/18/24 08/18/24 History Lacosamide [Vimpat] 100 mg PO BID 08/18/24 08/18/24 History Mirtazapine [Remeron] 15 mg PO HS 08/18/24 08/18/24 History Allergies Allergy/AdvReac Type Severity Reaction Status Date / Time peanut AdvReac Patient Verified 08/18/24 18:18 denies allergy Physical Exam Vitals: Vital Signs Temp Pulse Pulse Resp BP BP Pulse Ox 08/19/24 07:00 98.1 F 74 16 100/57 100 08/19/24 01:34 98.2 F 61 16 118/54 99 08/19/24 01:23 76 17 08/18/24 20:52 76 17 08/18/24 20:48 98.4 F 76 17 120/75 98 08/18/24 20:11 71 16 118/68 98 08/18/24 13:44 97.8 F 108 H 20 138/85 99 Intake and Output 08/18/24 08/19/24 08/19/24 22:59 06:59 14:59 Other: Voiding Method Diaper Diaper # Voids 0 2 Weight 43.091 kg Results - Lab Results Most recent lab results Calcium 9.7 mg/dL (8.4-10.2) 08/18/24 14:41 08/18/24 14:41 08/18/24 14:41 Assessment and Plan Plan: Assessment: 1. End-stage renal disease maintained on hemodialysis on Monday schedule via permacath. 2. Altered mental status and hallucinations. Brain CT negative. Neurology following. 3. Diabetes mellitus. 4. Hypertension with chronic kidney disease. Controlled. 5. Chronic kidney disease mineral bone disease. Phosphorus level 5.8. Plan: Hemodialysis tomorrow. Hold amlodipine for systolic blood pressure less than 120. Maintain Lasix. She does make urine. Hep-Lock IV fluids. Repeat phosphorus level tomorrow after dialysis. Thank you for the consultation. I will continue to follow the patient with you during her hospital stay.
[2024-08-19] MEDS: CARBIDOPA-LEVODOPA 25-100 MG 1 EACH TAB PO SCH (08:57)
[2024-08-19] MEDS: FERROUS SULFATE 325 MG TAB PO SCH (08:58)
[2024-08-19] MEDS: amLODIPine 5 MG TAB PO SCH (08:58)
[2024-08-19] MEDS: POTASSIUM CHLORIDE ER 20 MEQ TAB.ER PO SCH (08:58)
[2024-08-19] MEDS: ASCORBIC ACID 500 MG TAB PO SCH (08:58)
[2024-08-19] MEDS: FUROSEMIDE 20 MG TAB PO SCH (08:58)
[2024-08-19] MEDS: CITALOPRAM HYDROBROMIDE 20 MG TAB PO SCH (08:58)
[2024-08-19] MEDS: LACOSAMIDE 50 MG TABLET PO SCH (08:58)
[2024-08-19] MEDS: PANTOPRAZOLE 40 MG TABLET PO SCH (09:06)
[2024-08-19] MEDS ORDERED: OLANZapine 2.5 MG TAB PO PRN (14:32)
[2024-08-19] MEDS ORDERED: OLANZapine 10 MG VIAL IM PRN (14:32)
--- NOTE | 2024-08-19 14:42 | P.CN ---
Psychiatric Consult - . Consult date: 08/19/24 Consult:: 08/19/24 14:35 IDENTIFYING DATA: This patient is a 79-year-old female with history of dementia REASON FOR REFERRAL: Psychiatry was consulted for "psych " HISTORY OF PRESENT ILLNESS: The patient presented to the hospital on 08/18 with a chief complaint of hallucinations. Per ED note, "79-year-old female history of end-stage renal disease and dementia presenting with altered mental status, and frequent hallucination. Patient brought in by her states she has been more agitated and appears to be hallucinating almost constantly. Patient has not had any fever. reports that there is been no vomiting. No physical complaints. Seems to be having both auditory and visual hallucination. No history of psychiatric illness." CT head was negative for anything acute but did show chronic small vessel ischemic changes. Patient today was A and O x 2/3 not to date but did state feeling better today. She reports previously seeing things that she did not mean mostly towards her but denied any history of dementia. She states being frustrated at times with going to dialysis and sometimes is very mean to her to whom she has been to for 60 years. At this time patient denies any suicidal or homical ideations, intent or plan. Patient denies any auditory, visual hallucinations and denies any paranoia or delusions. PAST PSYCHIATRIC HISTORY: Patient has a a history of dementia and is currently on Remeron 15 mg at bedtime and Celexa 20 mg daily. Patient denies any previous psychiatric hospitalizations. Patient denies any psychiatric outpatient follow- up. Patient denies any history of suicide attempts in the past. PAST MEDICAL HISTORY: Patient reports being on dialysis for end-stage renal disease. ALLERGIES: as per EMR. CHEMICAL DEPENDENCY HISTORY: as per HPI. FAMILY PSYCHIATRIC/SUBSTANCE USE HISTORY: Denies SOCIAL HISTORY: Patient is to her of 60 years and is living with him. MENTAL STATUS EXAM: General Appearance: Patient appears to be stated age is alert, pleasant, and cooperative. Patient appears to have fair hygiene and grooming wearing hospital gown with fair eye contact. Behavior: Patient is calmly lying in bed without any agitated behavior. Speech: Patient's speech is fluent and nonpressured. Mood/Affect: Patient reports their mood is "better", affect is congruent Suicidality/Homicidality: Patient denies having any suicidal or homicidal ideation intent or plan. Perceptions: Patient denies any visual hallucinations and denies any auditory hallucinations Though content/process: There is no evidence of any delusional thought content and thought process is linear and goal-directed. Memory and concentration: AOX2-3 Judgment and insight: Poor IMPRESSIONS: Major neurocognitive disorder with behavioral disturbance PLAN: -At this time patient DOES NOT meet criteria for inpatient psychiatric admission. -Would recommend the following medication changes/additions: Start as needed Zyprexa 2.5 mg p.o./IM for safety concerns and acute psychosis -Psychiatry will sign off at this time -Please contact with any questions.
--- NOTE | 2024-08-19 14:52 | P.PN ---
Subjective Progress Note Date: 08/19/24 Pt reports overall improvement. But she is a poor historian and still having spells of confusion. Gen: In NAD, non-toxic HEENT: normocephalic, atraumatic, hearing acuity is intant, mucous membranes moist CVS: perfusing all extremities well, no pitting edema, Respiratory: symmetric chest expansion, no accessory muscle use, GI: soft, NTTP, ND, : no suprapubic tenderness, no CVA tenderness MSK/Derm: no rashes, cyanosis Neuro: CN II-XII intact, no motor weakness, Hospital Course: 79-year-old woman with a medical history of end-stage renal disease on hemodialysis, dementia presented for evaluation of visual hallucinations. In the ER, the patient was afebrile, 138/85, HR 108, 99% on room air. CBC unremarkable. BMP showed BUN of 30, Cr 3.32. LFTs unremarkable. UA shows moderate blood, 36 WBC, 6 Squamous cells. UTox negative. Brain CT showed no acute intracranial process. Assessment/plan: Acute metabolic encephalopathy Visual Hallucinations Hx of Seizures -Fall precautions -Neurochecks -Neurology consultation, appreciated -EEG ordered, discussed this with neuro today -psychiatry consult appreciated ESRD -nephrology consult appreciated, note reviewed, dialysis tomorrow Hypothyroid -Continue with levothyroxine Diabetes mellitus -Insulin sliding scale Hypertension, controlled -Continue with amlodipine DVT prophylaxis heparin subcu GI prophylaxis CODE STATUS DNR Objective - Vital Signs Vital signs: Vital Signs Temp 98.2 F 08/19/24 13:46 Pulse 81 08/19/24 13:46 Resp 16 08/19/24 13:46 BP 124/68 08/19/24 13:46 Pulse Ox 99 08/19/24 13:46 FiO2 Intake & Output 08/18/24 08/19/24 08/19/24 18:59 06:59 18:59 Weight 43.091 kg 43.091 kg Other: Voiding Method Diaper # Voids 2 - Labs CBC & Chem 7: 08/19/24 04:17 08/19/24 04:17 Labs: Abnormal Lab Results - Last 24 Hours (Table) 08/18/24 08/18/24 08/18/24 Range/Units 14:41 14:41 14:41 RBC (4.10-5.20) X 10*6/uL Hgb (12.0-15.0) g/dL Hct (37.2-46.3) % MCV (80.0-97.0) FL MCHC (32.0-37.0) g/dL RDW 16.2 H (11.5-15.5) % Anion Gap (4.00-12.00) mmol/L BUN 30 H (7-17) mg/dL Creatinine 3.32 H (0.52-1.04) mg/dL Est GFR (CKD-EPI) (>=60) BUN/Creatinine Ratio (12.00-20.00) Ratio Glucose 153 H (74-99) mg/dL Phosphorus (2.4-5.1) mg/dL Magnesium (1.5-2.4) mg/dL Urine Protein Trace H (Negative) Urine Blood Moderate H (Negative) Urine RBC 36 H (0-5) /hpf Ur Squamous Epith Cells 6 H (0-4) /hpf Urine Bacteria Occasional H (None) /hpf 08/19/24 08/19/24 Range/Units 04:17 04:17 RBC 3.54 L (4.10-5.20) X 10*6/uL Hgb 11.2 L (12.0-15.0) g/dL Hct 35.3 L (37.2-46.3) % MCV 99.7 H (80.0-97.0) FL MCHC 31.7 L (32.0-37.0) g/dL RDW 15.8 H (11.5-15.5) % Anion Gap 12.50 H (4.00-12.00) mmol/L BUN 36.1 H (7-17) mg/dL Creatinine 4.2 H (0.52-1.04) mg/dL Est GFR (CKD-EPI) 10 L (>=60) BUN/Creatinine Ratio 8.60 L (12.00-20.00) Ratio Glucose 117 H (74-99) mg/dL Phosphorus 5.8 H (2.4-5.1) mg/dL Magnesium 2.6 H (1.5-2.4) mg/dL Urine Protein (Negative) Urine Blood (Negative) Urine RBC (0-5) /hpf Ur Squamous Epith Cells (0-4) /hpf Urine Bacteria (None) /hpf
--- NOTE | 2024-08-19 15:44 | P.CNNES ---
History of Present Illness Consult date: 08/19/24 Requesting physician: Mesfin Hutchison Reason for Consult: ams History of Present Illness: This is an 79-year-old woman with underlying history of Alzheimer's dementia, seizure, diabetes mellitus, anemia, recurrent UTI, hypothyroidism presented emergency department because of altered mental status and frequent hallu cination. Patient is not a great historian but she stated that she has been accusing her and her [id number] of thinks they have not done. She thinks that her is cheating on her. She denies any headache, any focal weakness, any nausea and vomiting. Any visual disturbance. Per the ED note the patient has been more agitated. Hallucinating almost constantly. No fevers. No vomiting. It seems the patient has been having more with auditory and visual hallucination. Of Note, patient was last seen by Dr. Lara on 04/13/2024 and in his note he stated the patient has history of seizures and had episode of unresponsiveness of unclear cause rule out seizure versus vasovagal vagal syncope. She had an EEG but no performed discharges or seizure. She is on Vimpat 100 mg twice a day and Dr. Lara recommended adding Vimpat 50 mg extra dose postdialysis. Please refer to his note for further details. Next Some of the workup during this hospital visit consisted of: CBC with differential the white blood cell is within normal limits. Creatinine is 3.32 and repeat is 4.2 and BUN is 36 which is slightly higher today compared to yesterday. Urinalysis seems negative for underlying urinary tract infection. CT of the head is reported as no acute intracranial process. Nonspecific white matter changes. I personally reviewed the CT and agree there is no acute or subacute process. Review of Systems Limited. Past Medical History Past Medical History: Dementia, Diabetes Mellitus, Dialysis, Hyperlipidemia, Hypertension, Renal Disease, Thyroid Disorder History of Any Multi-Drug Resistant Organisms: None Reported Date of last positivie culture/infection: 01/04/24 MDRO Source:: Urine Past Surgical History: Unable to Obtain Past Anesthesia/Blood Transfusion Reactions: No Reported Reaction Past Psychological History: Depression Smoking Status: Never smoker Past Alcohol Use History: None Reported Past Drug Use History: None Reported - Past Family History Brother(s) Additional Family Medical History / Comment(s): Unable to obtain due to patient's underlying dementia Medications and Allergies Home Medications Medication Instructions Recorded Confirmed Type Levothyroxine Sodium 100 mcg PO MOTUWETHFRSA@0600 07/27/22 08/18/24 History Simvastatin [Zocor] 80 mg PO DAILY 07/27/22 08/18/24 History Carbidopa-Levodopa 25-100 mg 1 tab PO QID@08,12,16,20 10/30/23 08/18/24 History [Sinemet 25-100 mg] Ferrous Sulfate [Iron (65 MG 325 mg PO DAILY 01/04/24 08/18/24 History Elemental)] Ascorbic Acid [Vitamin C] 500 mg PO DAILY 02/09/24 08/18/24 History Furosemide [Lasix] 60 mg PO DAILY 02/09/24 08/18/24 History INSULIN ASPART (NovoLOG) [NovoLOG See Protocol SQ ACHS PRN 02/09/24 08/18/24 History (formulary)] Levothyroxine Sodium [Synthroid] 50 mcg PO CALABRESE@0600 02/09/24 08/18/24 History Magnesium Oxide [Mag-Ox] 200 mg PO HS 02/09/24 08/18/24 History Pantoprazole [Protonix] 40 mg PO BID 02/09/24 08/18/24 History amLODIPine [Norvasc] 5 mg PO DAILY 02/09/24 08/18/24 History Potassium Chloride ER [K-Dur 20] 20 meq PO DAILY 04/11/24 08/18/24 History Citalopram Hydrobromide [CeleXA] 20 mg PO DAILY 08/18/24 08/18/24 History Lacosamide [Vimpat] 100 mg PO BID 08/18/24 08/18/24 History Mirtazapine [Remeron] 15 mg PO HS 08/18/24 08/18/24 History Allergies Allergy/AdvReac Type Severity Reaction Status Date / Time peanut AdvReac Patient Verified 08/18/24 18:18 denies allergy Physical Examination - Vital Signs Vital Signs: Vital Signs Temp Pulse Pulse Resp BP BP Pulse Ox 08/19/24 13:46 98.2 F 81 16 124/68 99 08/19/24 07:00 98.1 F 74 16 100/57 100 08/19/24 01:34 98.2 F 61 16 118/54 99 10/07/24 01:23 76 17 08/18/24 20:52 76 17 08/18/24 20:48 98.4 F 76 17 120/75 98 08/18/24 20:11 71 16 118/68 98 Intake and Output 08/19/24 08/19/24 08/19/24 06:59 14:59 22:59 Intake Total 236 Balance 236 Intake: Oral 236 Other: Voiding Method Diaper # Voids 2 1 General: Lying in bed and does not appear in acute distress. But appears anxious. Neuro: Because of her overall condition. She appears anxious. She was oriented to self and stated she was in the hospital. She correctly stated that the month was August but did not know the year. Pupils are round equal reactive to light. Pupils are round 3 mm bilaterally. No facial weakness. No dysarthria. Motor is left in all extremities above gravity and appears symmetrical. Sensation is hard to assess because of her cooperation Reflexes was 2 positive throughout. Plantars are mute bilaterally. Results - Laboratory Findings CBC and BMP: 08/19/24 04:17 08/19/24 04:17 Abnormal Lab Findings: Abnormal Labs 08/18/24 08/18/24 08/18/24 14:41 14:41 14:41 RBC Hgb Hct MCV MCHC RDW 16.2 H Anion Gap BUN 30 H Creatinine 3.32 H Est GFR (CKD-EPI) BUN/Creatinine Ratio Glucose 153 H Phosphorus Magnesium Urine Protein Trace H Urine Blood Moderate H Urine RBC 36 H Ur Squamous Epith Cells 6 H Urine Bacteria Occasional H 08/19/24 08/19/24 04:17 04:17 RBC 3.54 L Hgb 11.2 L Hct 35.3 L MCV 99.7 H MCHC 31.7 L RDW 15.8 H Anion Gap 12.50 H BUN 36.1 H Creatinine 4.2 H Est GFR (CKD-EPI) 10 L BUN/Creatinine Ratio 8.60 L Glucose 117 H Phosphorus 5.8 H Magnesium 2.6 H Urine Protein Urine Blood Urine RBC Ur Squamous Epith Cells Urine Bacteria Assessment and Plan Assessment: This is an 79-year-old woman with underlying history of Alzheimer's dementia, seizure who presented emergency department because of altered mental status with auditory and visual hallucination. Altered mental status with auditory and visual hallucination as likely due to her progressive dementia. Rule out any seizure Underlying history of Alzheimer's dementia Underlying history of seizure in December 2023 Non-insulin dependent diabetes Iron deficiency anemia End-stage renal disease on dialysis Hypothyroidism Hyperlipidemia Hypertension Recurrent urinary tract infection Plan: An EEG is ordered by the primary team and is pending Patient is on Vimpat 100 mg twice daily and on April 13, 2024 my colleague has recommended 50 mg postdialysis. I ordered vitamin B12, ammonia level, TSH. Defer the rest of the medical management to the primary and other specialist The plan discussed with the primary team Thank you for the consultation Time with Patient: Greater than 30
[2024-08-19 20:02] LABS: T4, Free (Free Thyroxine) 1.51 ng/dL (0.78-2.19)
[2024-08-19] MEDS: MAGNESIUM OXIDE 400 MG TAB PO SCH (21:53)
[2024-08-19] MEDS: MIRTAZAPINE 15 MG TAB PO SCH (21:53)
[2024-08-20] MEDS: LEVOTHYROXINE 100 MCG TAB PO SCH (06:20)
[2024-08-20 08:44] LABS: BUN/Creat Ratio 10.57 Ratio (12.00-20.00); Blood Urea Nitrogen 51.8 mg/dL (9.0-27.0); Calcium 9.6 mg/dL (8.7-10.3); Carbon Dioxide 27.6 mmol/L (21.6-31.8); Chloride 102 mmol/L (96-109); Glucose 85 mg/dL (70-110); Magnesium 2.6 mg/dL (1.5-2.4); Potassium 5.4 mmol/L (3.5-5.5); Sodium 143 mmol/L (135-145)
--- NOTE | 2024-08-20 09:44 | P.PN ---
Subjective Patient is seen in follow-up for end-stage renal disease. She is maintained on hemodialysis on Monday schedule. No active complaints. Sitting up in bed. Mentation seems to be at baseline. Vital signs are stable. General: No acute distress. HEENT: Head exam is unremarkable. LUNGS: No audible rhonchi or wheezes. HEART: Rate and Rhythm are regular. ABDOMEN: Nontender. EXTREMITITES: No edema. Objective - Vital Signs Vital signs: Vital Signs Temp 98.1 F 08/20/24 07:00 Pulse 69 08/20/24 07:00 Resp 16 08/20/24 07:00 BP 104/53 08/20/24 07:00 Pulse Ox 100 08/20/24 07:00 FiO2 Intake & Output 08/19/24 08/20/24 08/20/24 18:59 06:59 18:59 Intake Total 354 240 Balance 354 240 Intake: Oral 354 240 Other: Voiding Method Diaper # Voids 1 2 - Labs CBC & Chem 7: 08/19/24 04:17 08/20/24 04:22 Labs: Abnormal Lab Results - Last 24 Hours (Table) 08/19/24 08/20/24 Range/Units 17:04 04:22 Anion Gap 13.40 H (4.00-12.00) mmol/L BUN 51.8 H (9.0-27.0) mg/dL Creatinine 4.9 H (0.6-1.5) mg/dL Est GFR (CKD-EPI) 8 L (>=60) BUN/Creatinine Ratio 10.57 L (12.00-20.00) Ratio Magnesium 2.6 H (1.5-2.4) mg/dL TSH 0.033 L (0.465-4.680) mIU/L Assessment and Plan Plan: Assessment: 1. End-stage renal disease maintained on hemodialysis on Monday schedule via permacath. 2. Altered mental status and hallucinations. Brain CT negative. Neurology following. 3. Diabetes mellitus. 4. Hypertension with chronic kidney disease. Controlled. 5. Chronic kidney disease mineral bone disease. Phosphorus level 5.8. Plan: Hemodialysis today. Stop amlodipine as blood pressure running on the lower end. Maintain Lasix. She does make urine. Repeat phosphorus level. Stop potassium supplementation
--- NOTE | 2024-08-20 17:36 | P.DS ---
Providers Date of admission: 08/20/24 11:15 Expected date of discharge: 08/20/24 Attending physician: Venkata Swift MD Consults: 08/18/24 16:44 Consult Physician Routine Consulting Provider: Ed Zaragoza Consult Reason/Comments: psych Do you want consulting provider notified?: Yes Consult Physician Routine Consulting Provider: Mira Lara Consult Reason/Comments: ams Do you want consulting provider notified?: Yes Consult Physician Urgent Consulting Provider: Yvan Garcia Consult Reason/Comments: CKD Do you want consulting provider notified?: Yes Primary care physician: Daniel Lala MD Hospital Course: Acute metabolic encephalopathy Visual Hallucinations Hx of Seizures ESRD Hypothyroid Diabetes mellitus Hypertension, controlled Gen: In NAD, non-toxic HEENT: normocephalic, atraumatic, hearing acuity is intant, mucous membranes moist CVS: perfusing all extremities well, no pitting edema, Respiratory: symmetric chest expansion, no accessory muscle use, GI: soft, NTTP, ND, : no suprapubic tenderness, no CVA tenderness MSK/Derm: no rashes, cyanosis Neuro: CN II-XII intact, no motor weakness, Hospital Course: 79-year-old woman with a medical history of end-stage renal disease on hemodialysis, dementia presented for evaluation of visual hallucinations. In the ER, the patient was afebrile, 138/85, HR 108, 99% on room air. CBC unremarkable. BMP showed BUN of 30, Cr 3.32. LFTs unremarkable. UA shows moderate blood, 36 WBC, 6 Squamous cells. UTox negative. Brain CT showed no acute intracranial process. Patient was seen in consultation with nephrology who take patient to dialysis. Patient's mental status improved after dialysis. Patient was also seen by nephrology who recommended EEG, EEG did not demonstrate findings of seizure activity. However, it was reinforced that patient should have an additional dose of Vimpat postdialysis, and this was provided to her on discharge. Psychiatry also evaluated the patient felt she would benefit from initiation of Zyprexa which was sent to her pharmacy. Patient should follow-up with her primary care physician, neurology and nephrology. I spent 32 minutes coordinating this discharge Patient Condition at Discharge: Good Plan - Discharge Summary Discharge Rx Participant: No New Discharge Prescriptions: New Lacosamide 50 mg PO DIRECTED #30 tab OLANZapine [ZyPREXA] 2.5 mg PO DAILY PRN #30 tab PRN Reason: Agitation Or Acute Psychosis Continue Levothyroxine Sodium 100 mcg PO MOTUWETHFRSA@0600 Pantoprazole [Protonix] 40 mg PO BID Ascorbic Acid [Vitamin C] 500 mg PO DAILY Magnesium Oxide [Mag-Ox] 200 mg PO HS Levothyroxine Sodium [Synthroid] 50 mcg PO CALABRESE@0600 Mirtazapine [Remeron] 15 mg PO HS Lacosamide [Vimpat] 100 mg PO BID Citalopram Hydrobromide [CeleXA] 20 mg PO DAILY Simvastatin [Zocor] 80 mg PO DAILY Carbidopa-Levodopa 25-100 mg [Sinemet 25-100 mg] 1 tab PO QID@08,12,16, Ferrous Sulfate [Iron (65 MG Elemental)] 325 mg PO DAILY INSULIN ASPART (NovoLOG) [NovoLOG (formulary)] See Protocol SQ ACHS PRN PRN Reason: Blood Sugar - High Furosemide [Lasix] 60 mg PO DAILY amLODIPine [Norvasc] 5 mg PO DAILY Potassium Chloride ER [K-Dur 20] 20 meq PO DAILY Discharge Medication List Levothyroxine Sodium 100 mcg PO MOTUWETHFRSA@0600 07/27/22 [History] Simvastatin [Zocor] 80 mg PO DAILY 07/27/22 [History] Carbidopa-Levodopa 25-100 mg [Sinemet 25-100 mg] 1 tab PO QID@08,12,16,20 10/30/23 [History] Ferrous Sulfate [Iron (65 MG Elemental)] 325 mg PO DAILY 01/04/24 [History] Ascorbic Acid [Vitamin C] 500 mg PO DAILY 02/09/24 [History] Furosemide [Lasix] 60 mg PO DAILY 02/09/24 [History] INSULIN ASPART (NovoLOG) [NovoLOG (formulary)] See Protocol SQ ACHS PRN 02/09/24 [History] Levothyroxine Sodium [Synthroid] 50 mcg PO CALABRESE@0600 02/09/24 [History] Magnesium Oxide [Mag-Ox] 200 mg PO HS 02/09/24 [History] Pantoprazole [Protonix] 40 mg PO BID 02/09/24 [History] amLODIPine [Norvasc] 5 mg PO DAILY 02/09/24 [History] Potassium Chloride ER [K-Dur 20] 20 meq PO DAILY 04/11/24 [History] Citalopram Hydrobromide [CeleXA] 20 mg PO DAILY 08/18/24 [History] Lacosamide [Vimpat] 100 mg PO BID 08/18/24 [History] Mirtazapine [Remeron] 15 mg PO HS 08/18/24 [History] Lacosamide 50 mg PO DIRECTED #30 tab 08/20/24 [Rx] OLANZapine [ZyPREXA] 2.5 mg PO DAILY PRN #30 tab 08/20/24 [Rx] Follow up Appointment(s)/Referral(s): Daniel Lala MD [Primary Care Provider] - 1-2 days Discharge Disposition: HOME WITH HOME HEALTH SERVICES
[2024-08-20 18:00] LABS: Glucose,Whole Blood 134 mg/dL (70-110)
[2024-08-20] MEDS: SODIUM CHLORIDE 0.9% 500 ML 250 ML IV ONE (18:22)
[2024-08-20 18:37] VITALS: BP 120/69; PULSE 84; RESP 18; TEMP 98
--- NOTE | 2024-08-20 19:10 | P.PN ---
Subjective Progress Note Date: 08/20/24 I am following up with the patient and she was in the process of getting hemodialysis. She feels she is better today compared to yesterday. Regarding her hallucination she does acknowledge that she is wrong about accusing her of things. Otherwise she feels overall better and denies of any new ne urological issues. Objective - Vital Signs Vital signs: Vital Signs Temp 98 F 08/20/24 18:32 Pulse 84 08/20/24 18:32 Resp 18 08/20/24 18:32 BP 120/69 08/20/24 18:32 Pulse Ox 98 08/20/24 17:57 FiO2 Intake & Output 08/20/24 08/20/24 08/21/24 06:59 18:59 06:59 Intake Total 240 600 Output Total 2600 Balance 240 -2000 Intake: Oral 240 Hemodialysis 600 Output: Hemodialysis 1600 Hemodialysis Net Amount 1000 Other: Voiding Method Diaper Diaper # Voids 2 2 - Exam General: Lying in bed and is not in acute distress. Neuro: Somewhat limited Patient is awake alert oriented to self and place. She is following simple commands Visual jolly are full to confrontation. No facial weakness. No dysarthria Motor is left in all extremities above gravity. Some of the workup during this hospital visit consisted of: CBC with differential the white blood cell is within normal limits. Ammonia is less than 9 Vitamin B12 is 497 TSH is 0.033, free T4 is 1.51 Urinalysis seems negative for underlying urinary tract infection. Urine drug screen is nondetected. CT of the head is reported as no acute intracranial process. Nonspecific white matter changes. I personally reviewed the CT and agree there is no acute or subacute process. - Labs CBC & Chem 7: 08/19/24 04:17 08/20/24 04:22 Labs: Abnormal Lab Results - Last 24 Hours (Table) 08/20/24 08/20/24 Range/Units 04:22 17:58 Anion Gap 13.40 H (4.00-12.00) mmol/L BUN 51.8 H (9.0-27.0) mg/dL Creatinine 4.9 H (0.6-1.5) mg/dL Est GFR (CKD-EPI) 8 L (>=60) BUN/Creatinine Ratio 10.57 L (12.00-20.00) Ratio POC Glucose (mg/dL) 134 H (70-110) mg/dL Magnesium 2.6 H (1.5-2.4) mg/dL Assessment and Plan Assessment: This is an 79-year-old woman with underlying history of Alzheimer's dementia, seizure who presented emergency department because of altered mental status with auditory and visual hallucination. Altered mental status with auditory and visual hallucination as likely due to her progressive dementia. Rule out any seizure Underlying history of Alzheimer's dementia Underlying history of seizure in December 2023 Non-insulin dependent diabetes Iron deficiency anemia End-stage renal disease on dialysis Hypothyroidism Hyperlipidemia Hypertension Recurrent urinary tract infection Plan: Preliminary EEG: Negative for seizure Patient is on Vimpat 100 mg twice daily and on April 13, 2024 my colleague has recommended 50 mg postdialysis and notified this to primary team to resume and to be discharged on it. Defer the rest of the medical management to the primary and other specialist Recommend the patient to follow-up with a neurologist as an outpatient within 2 to 3 weeks. The plan discussed with the primary team Time with Patient: Less than 30
--- NOTE | 2024-08-21 02:43 | EEG ---
ELECTROENCEPHALOGRAM REPORT CLINICAL HISTORY: This is an 79-year-old woman with history of seizure, dementia, who has altered mental status. The video EEG is obtained to evaluate for seizure epileptiform activity. RELEVANT MEDICATION: Vimpat. EEG TYPE: This is a routine 21-channel EEG with video using the 10/20 electrode placement system. DESCRIPTION: Wakefulness is only obtained. During awake state, the background consists of 8.5 to 9 hertz activity and at times, the background consists of diffuse theta activity. There was no physiological stage 2 sleep architecture. There is no focal slowing. Interictal and ictal is none. ACTIVATION PROCEDURE: Photic stimulation did not evoke a posterior driving response. There is no abnormality during the photic stimulation. Hyperventilation is not performed. CLINICAL INTERPRETATION: This is an abnormal routine EEG. The background slowing is suggestive of mild encephalopathy. Otherwise, there is no focal slowing, epileptiform discharge, or seizure on the EEG. Clinical correlation is recommended. FLAKITA / GRISELDA: [id number] /
[2024-08-25] MEDS ORDERED: LEVOTHYROXINE 50 MCG TAB PO SCH (06:00)
--- NOTE | 2024-09-02 21:10 | CDI ---
Documentation Clarification Form Date: 09/02/2024 08:59:39 PM From: Nona Dutton Phone: Admit Date: 08/20/2024 11:15:00 AM Patient Name: Joan Granados Visit Number: [id number] Discharge Date: 08/20/2024 07:06:00 PM ATTENTION: The Clinical Documentation Specialists (CDI) and [facility] Coding Staff appreciate your assistance in clarifying documentation. Please respond to the clarification below the line at the bottom and electronically sign. The CDI & [facility] Coding staff will review the response and follow-up if needed. Please note: Queries are made part of the Legal Health Record. If you have any questions, please contact the author of this message via ITS. Doctor/Provider: Venkata Swift Encephalopathy is documented per Progress Notes and DC Summary. Additional clarification regarding the cause of encephalopathy is requested. History/Risk Factors: 79yo F, Acutemetabolic encephalopathy, Alzheimers dementia w visual Hallucinations, Hx ofseizures, ESRD, hypothyroid, DMII, HTN, UTI, MBD d/t CKD Clinical Indicators: Labs: afebrile, 138/85, HR 108, 99% on room air. CBC unremarkable. BMPshowed BUN of 30, Cr 3. 32. LFTs unremarkable. UA shows moderate blood, 36 WBC, 6squamouscells. UTox negative. EEG: This is anabnormalroutineEEG. The background slowing issuggestive ofmild encephalopathy. Otherwise, there isnofocal slowing, epileptiform discharge, or seizureon theEEG. Clinical correlation is recommended. CT/MRI Brain: No acute intracranial process. Nonspecific white matter changes, likely secondary to chronic small vessel ischemicdisease. Treatment: Patient is on Vimpat 100 mg twice daily and on April 13, 2024 my colleague has recommended 50 mg post dialysis and notified this to primary team to resume and to be discharged on it. Please clarify the cause of encephalopathy, if known: [ ] UTI [ ] Medication [ ] Other, please specify [ x] Unable to determine (Template Last Revised: January 2021) MTDD
== END 2024-08-20 19:06 | disposition home health service (06) | DRG 70 ==
LOC: EC 13:43 → 6NMEDSUR 16:57 → OBSVTOIN 08-20 11:15
PROVIDERS: ADMIT Internal Medicine; ATTEND Internal Medicine
PROC: 5A1D70Z Performance of Urinary Filtration, Intermittent, Less than 6 Hours Per Day (ICD-10-PCS; principal; 2024-08-20)
DX: G93.41 Metabolic encephalopathy (principal); N18.6 End stage renal disease; I12.0 Hypertensive chronic kidney disease with stage 5 chronic kidney disease or end stage renal disease; F02.82 Dementia in other diseases classified elsewhere, unspecified severity, with psychotic disturbance; N39.0 Urinary tract infection, site not specified; Z66 Do not resuscitate; Z99.2 Dependence on renal dialysis; E11.22 Type 2 diabetes mellitus with diabetic chronic kidney disease; G30.9 Alzheimer's disease, unspecified; Z79.4 Long term (current) use of insulin; E03.9 Hypothyroidism, unspecified; D50.9 Iron deficiency anemia, unspecified; D63.1 Anemia in chronic kidney disease; E78.5 Hyperlipidemia, unspecified; K59.00 Constipation, unspecified; R44.1 Visual hallucinations; M89.8X9 Other specified disorders of bone, unspecified site; Z79.890 Hormone replacement therapy; Z87.440 Personal history of urinary (tract) infections; Z79.82 Long term (current) use of aspirin; Z86.69 Personal history of other diseases of the nervous system and sense organs; Z79.899 Other long term (current) drug therapy
CPT/HCPCS: 36415; 70450; 80048; 80053; 80306; 81001; 82140; 82607; 83735; 84100; 84439; 84443; 85025; 90935; 95816; 96360; 96361; 99285

== ENCOUNTER 2024-09-05 07:55 | Day surgery (SDC) | payer MEDICARE ==
[2024-09-05] MEDS ORDERED: LIDOCAINE 1% (10MG/ML) FOR IV START INTRADERMA PRN (08:42)
[2024-09-05] MEDS ORDERED: HYDROmorphone 0.5 MG/0.5 ML SYRINGE IVP PRN (08:42)
[2024-09-05] MEDS ORDERED: LACTATED RINGERS 1,000 ML IV SCH (08:42)
[2024-09-05] MEDS: IV FLUID CONTINUATION 1,000 ML IV ONE (09:02)
[2024-09-05 09:06] LABS: Glucose,Whole Blood 94 mg/dL (70-110)
[2024-09-05] MEDS: ONDANSETRON 4 MG/2 ML VIAL IVP ONE (09:07)
[2024-09-05] MEDS: SODIUM CHLORIDE 0.9% 500 ML DEHP FREE BAG IV STA (09:09)
[2024-09-05 09:11] LABS: Basophils % (A) 1 %; Eosinophils # (A) 0.1 k/uL (0-0.7); Eosinophils % (A) 1 %; HCT 31.3 % (34.0-46.0); HGB 10.7 gm/dL (11.4-16.0); Lymphocytes # (A) 1.8 k/uL (1.0-4.8); Lymphocytes % (A) 28 %; MCH 31.6 pg (25.0-35.0); MCHC 34.3 g/dL (31.0-37.0); MCV 92.2 fL (80.0-100.0); Mean Platelet Volume 8.1; Monocytes # (A) 0.3 k/uL (0-1.0); Monocytes % (A) 5 %; Neutrophils % (A) 64 %; Platelet Count 221 k/uL (150-450); RBC 3.39 m/uL (3.80-5.40); RDW 14.8 % (11.5-15.5); WBC 6.3 k/uL (3.8-10.6)
[2024-09-05 09:18] LABS: ALT 6 U/L (4-34); African American GFR (CKD) 21 (>60 ml/min/1.73 sqM); Albumin 4.5 g/dL (3.5-5.0); Anion Gap 10 mmol/L; Blood Urea Nitrogen 27 mg/dL (7-17); Calcium 9.5 mg/dL (8.4-10.2); Carbon Dioxide 30 mmol/L (22-30); Chloride 99 mmol/L (98-107); Glucose 92 mg/dL (74-99); Non-African American GFR(CKD) 18 (>60 ml/min/1.73 sqM); Sodium 139 mmol/L (137-145); Total Bilirubin 1.1 mg/dL (0.2-1.3); Total Protein 7.7 g/dL (6.3-8.2)
[2024-09-05] MEDS: MIDAZOLAM 2 MG/2 ML VIAL IV ONE (09:19)
[2024-09-05] MEDS ORDERED: LIDOCAINE 1% INJ 10MG/ML (20 ML MDV) ONE (09:20)
[2024-09-05] MEDS ORDERED: ROPIVACAINE 5 MG/ML 30 ML VIAL ONE (09:20)
[2024-09-05] MEDS ORDERED: HEPARIN SODIUM,PORCINE 5,000 UNIT/ML 1 ML VIAL ONE (09:20)
[2024-09-05] MEDS ORDERED: PROPOFOL 10 MG/ML 20 ML VIAL IV ONE (09:20)
[2024-09-05 09:22] LABS: AST 30 U/L (14-36); Potassium 4.9 mmol/L (3.5-5.1)
[2024-09-05 09:23] LABS: Alkaline Phosphatase 83 U/L (38-126)
[2024-09-05 09:34] VITALS: TEMP 98.4
[2024-09-05] MEDS: THROMBIN (BOVINE) 5,000 UNIT VIAL TOPICAL ONE (09:47)
[2024-09-05] MEDS: ceFAZolin 2 GM in SODIUM CHLORIDE 0.9% 500 ML 500 ML IRRIGATION ONE (09:48)
[2024-09-05] MEDS: HEPARIN SODIUM (1,000 UNIT/ML) 2,000 UNIT in SODIUM CHLORIDE 0.9% 1,000 ML IRRIGATION ONE (09:49)
--- NOTE | 2024-09-05 10:32 | P.ANPRN ---
Procedure Note - Anesthesia - Nerve Block Performed Left Supraclavicular Single Time Out Performed: Yes Date of Procedure: 09/05/24 Procedure Start Time: :13 Procedure Stop Time: :16 Location of Patient: PreOp Indication: Acute Post-Operative Pain, Requested by Surgeon Sedation Type: Sedate with meaningful contact maintained Preparation: Sterile Prep Position: Supine Needle Types: Pajunk Needle Gauge: 21 Ultrasound used to visualize needle placement: Yes Ultrasound used to observe medication spread: Yes Blood Aspirated: No Pain Paresthesia on Injection Noted: No Resistance on Injection: Normal Image Stored and Saved: Yes Events: Uneventful and Well Tolerated (Ropivacaine 0.5% 20 cc was given)
--- NOTE | 2024-09-05 11:36 | P.OP ---
Date of Procedure: 09/05/24 Description of Procedure: Preoperative diagnosis: Chronic kidney disease, need for dialysis Postoperative diagnosis: Same Procedure: Left upper extremity loop forearm graft Surgeon: Danya Rodriguez D.O. Anesthesia: Regional block with sedation EBL: 20 mL IV fluids: See operative records Urine output: Not measured Drains: None Complications: None immediately apparent Condition: Stable to PACU Operative indication and findings: Patient is an 79-year-old female in need of dialysis. She underwent vein mapping in the office showing very small veins with multiple branches in her superficial system therefore a discussion was had regarding going forward with placement of a loop forearm graft. Risks and b enefits were discussed. She seemingly understood and was willing to proceed. Procedure in detail: The patient was taken to the operative suite and placed in supine position. The upper extremity is prepped and draped in usual sterile fashion. A preprocedure timeout was performed, all parties were in agreement. A transverse incision was made just distal to the antecubital fossa and carried down to the level of the brachial artery. It was dissected free circumferentially and proximal and distal Vesseloops were placed. Attention was then turned towards the venous outflow. The most appropriate sized appearing vein was the basilic vein medially. The antecubital vein and cephalic vein were in the same area and all left in continuity. The complex was therefore dissected free and encircled proximally and distally and the anastomosis was performed at the basilic vein at the level of the median cubital vein. The 4 x 7 propatent graft was then tunneled through a counter incision in the forearm and a subcutaneous tissues. The patient was then heparinized. Flow was occluded through the artery. An arteriotomy was performed and anastomosis to the graft was performed with 6-0 Prolene. The graft was then flushed and the anastomosis was completed. Flow was resumed through the artery. Attention was then turned towards the venous anastomosis. Flow was occluded through the vein and a venotomy was performed. Anastomosis created with 6-0 Prolene. Prior to completion of the anastomosis the graft was flushed as well as the veins themselves. Flow was reinstituted. There remained a palpable pulse proximal and distal to the arterial anastomosis as well as a palpable pulse in the wrist. There was a good thrill in the outflow vein. Thrombin Gelfoam was used for hemostasis. The incision sites were copiously irrigated the subcutaneous tissues were approximately with 3-0 Vicryl in interrupted fashion and the skin was reapproximated with running 4-0 Monocryl. Skin glue was placed. The patient was allowed awaken from anesthesia and transferred to PACU in stable condition having tolerated the procedure well. Plan - Discharge Summary Discharge Rx Participant: No New Discharge Prescriptions: No Action Levothyroxine Sodium 100 mcg PO MOTUWETHFRSA@0600 Pantoprazole [Protonix] 40 mg PO BID Levothyroxine Sodium [Synthroid] 50 mcg PO CALABRESE@0600 Mirtazapine [Remeron] 15 mg PO HS OLANZapine [ZyPREXA] 2.5 mg PO DAILY PRN #30 tab PRN Reason: Agitation Or Acute Psychosis Simvastatin [Zocor] 80 mg PO DAILY Carbidopa-Levodopa 25-100 mg [Sinemet 25-100 mg] 1 tab PO QID@,, INSULIN ASPART (NovoLOG) [NovoLOG (formulary)] See Protocol SQ ACHS PRN PRN Reason: Blood Sugar - High Furosemide [Lasix] 60 mg PO DAILY Potassium Chloride ER [K-Dur 20] 20 meq PO DAILY Lacosamide 50 mg PO DIRECTED PRN PRN Reason: after dialysis if needed Discharge Medication List Levothyroxine Sodium 100 mcg PO MOTUWETHFRSA@0600 07/27/22 [History] Simvastatin [Zocor] 80 mg PO DAILY 07/27/22 [History] Carbidopa-Levodopa 25-100 mg [Sinemet 25-100 mg] 1 tab PO QID@,12,16 10/30/23 [History] Furosemide [Lasix] 60 mg PO DAILY 02/09/24 [History] INSULIN ASPART (NovoLOG) [NovoLOG (formulary)] See Protocol SQ ACHS PRN 02/09/24 [History] Levothyroxine Sodium [Synthroid] 50 mcg PO CALABRESE@0600 02/09/24 [History] Pantoprazole [Protonix] 40 mg PO BID 02/09/24 [History] Potassium Chloride ER [K-Dur 20] 20 meq PO DAILY 04/11/24 [History] Mirtazapine [Remeron] 15 mg PO HS 08/18/24 [History] OLANZapine [ZyPREXA] 2.5 mg PO DAILY PRN #30 tab 08/20/24 [Rx] Lacosamide 50 mg PO DIRECTED PRN 09/03/24 [History] Follow up Appointment(s)/Referral(s): Danya Rodriguez DO [STAFF PHYSICIAN] - 2 Weeks Activity/Diet/Wound Care/Special Instructions: Resume all home medications. Resume regular diet. Resume bathing as previous. Utilize sling for next 24 to 48 hours. Maintain wrap on arm for 48 hours. Do not sleep on left arm. No blood draws or blood pressures in the left upper extremity. Discharge Disposition: HOME SELF-CARE
[2024-09-05 11:40] VITALS: RESP 18
[2024-09-05 11:55] VITALS: BP 109/63; PULSE 73
== END 2024-09-05 12:18 | disposition home or self-care (01) ==
LOC: OR 07:55
PROVIDERS: ATTEND Surgery
DX: N18.6 End stage renal disease (principal); E11.22 Type 2 diabetes mellitus with diabetic chronic kidney disease; E78.5 Hyperlipidemia, unspecified; I12.0 Hypertensive chronic kidney disease with stage 5 chronic kidney disease or end stage renal disease; R56.9 Unspecified convulsions; Z99.2 Dependence on renal dialysis
CPT/HCPCS: 64415; 80053; 85025; L8670; J2250; J1644 ×2; J0690 ×2; J2405; J2003; J2795; J2704

== ENCOUNTER 2024-10-02 13:30 | Inpatient (IN) | payer MEDICARE ==
--- NOTE | 2024-10-02 13:58 | ED ---
Lower Extremity Injury HPI - General Source: patient, family, RN/, RN notes reviewed, old records reviewed Mode of arrival: wheelchair Limitations: physical limitation - History of Present Illness Complaint: hip injury <Ana Luisa Hernandez - Last Filed: 10/02/24 13:57> - General Source: patient, family, RN/, RN notes reviewed, old records reviewed Mode of arrival: wheelchair Limitations: physical limitation - History of Present Illness MD Complaint: hip injury (Left) Injury: Hip: Left, Pelvis: Left Type of Injury: blunt Place: home Severity: severe Severity scale (1-10): 8 Worsens With: weight bearing Context: fall, direct blow Associated Symptoms: able to partially bear weight Treatments Prior to Arrival: other (0) <Mesfin Hutchison - Last Filed: 10/02/24 17:29> - General Chief Complaint: Extremity Injury, Lower Stated Complaint: Hip pain, fracture possible Time Seen by Provider: 10/02/24 13:50 - History of Present Illness Initial Comments: Quick Note: This is an 79-year-old female who presents to the emergency department for a fall. Patient fell 5 days ago and injured her left hip. She had x-rays done today and there was concern about a fracture in the left hip, and she was sent to the emergency department for a CT scan to further evaluate this area. (Ana Luisa Hernandez) This is a 79-year-old female who is 5 days from a fall. Patient had outpatient x-rays done today with concern for fracture sent to ER for further evaluation (Mesfin Hutchison) - Related Data Home Medications Medication Instructions Recorded Confirmed Levothyroxine Sodium 100 mcg PO MOTUWETHFRSA@0600 07/27/22 09/05/24 Simvastatin [Zocor] 80 mg PO DAILY 07/27/22 09/05/24 Carbidopa-Levodopa 25-100 mg 1 tab PO QID@08,12,16 10/30/23 09/05/24 [Sinemet 25-100 mg] Furosemide [Lasix] 60 mg PO DAILY 02/09/24 09/05/24 INSULIN ASPART (NovoLOG) [NovoLOG See Protocol SQ ACHS PRN 02/09/24 09/05/24 (formulary)] Levothyroxine Sodium [Synthroid] 50 mcg PO CALABRESE@0600 02/09/24 09/05/24 Pantoprazole [Protonix] 40 mg PO BID 02/09/24 09/05/24 Potassium Chloride ER [K-Dur 20] 20 meq PO DAILY 04/11/24 09/05/24 Mirtazapine [Remeron] 15 mg PO HS 08/18/24 09/05/24 Lacosamide 50 mg PO DIRECTED PRN 09/03/24 09/05/24 Previous Rx's Medication Instructions Recorded OLANZapine [ZyPREXA] 2.5 mg PO DAILY PRN #30 tab 08/20/24 Allergies Allergy/AdvReac Type Severity Reaction Status Date / Time No Known Allergies Allergy Verified 10/02/24 13:41 Review of Systems ROS Other: All systems not noted in ROS Statement are negative. <Ana Luisa Hernandez - Last Filed: 10/02/24 13:57> ROS Other: All systems not noted in ROS Statement are negative. <Mesfin Hutchison - Last Filed: 10/02/24 17:29> ROS Statement: Those systems with pertinent positive or pertinent negative responses have been documented in the HPI. Past Medical History Past Medical History: Dementia, Diabetes Mellitus, Dialysis, Hyperlipidemia, Hypertension, Renal Disease, Thyroid Disorder Additional Past Medical History / Comment(s): dailysis tu,th,sa History of Any Multi-Drug Resistant Organisms: None Reported Date of last positivie culture/infection: 01/04/24 MDRO Source:: Urine Past Surgical History: Orthopedic Surgery Additional Past Surgical History / Comment(s): shoulder infection , Past Anesthesia/Blood Transfusion Reactions: No Reported Reaction Past Psychological History: Anxiety, Depression Smoking Status: Never smoker - Past Family History Brother(s) Additional Family Medical History / Comment(s): Unable to obtain due to patient's underlying dementia <nAa Luisa Hernandez - Last Filed: 10/02/24 13:57> General Exam Limitations: physical limitation <Ana Luisa Hernandez - Last Filed: 10/02/24 13:57> General appearance: alert, in no apparent distress Head exam: Present: atraumatic, normocephalic, normal inspection Eye exam: Present: normal appearance, PERRL, EOMI. Absent: scleral icterus, conjunctival injection, periorbital swelling ENT exam: Present: normal exam, mucous membranes moist Neck exam: Present: normal inspection. Absent: tenderness, meningismus, lymphadenopathy Respiratory exam: Present: normal lung sounds bilaterally. Absent: respiratory distress, wheezes, rales, rhonchi, stridor Cardiovascular Exam: Present: regular rate, normal rhythm, normal heart sounds. Absent: systolic murmur, diastolic murmur, rubs, gallop, clicks GI/Abdominal exam: Present: soft, normal bowel sounds. Absent: distended, tenderness, guarding, rebound, rigid Extremities exam: Present: normal inspection, full ROM, normal capillary refill. Absent: tenderness, pedal edema, joint swelling, calf tenderness Back exam: Present: normal inspection Neurological exam: Present: alert, oriented X3, CN II-XII intact Psychiatric exam: Present: normal affect, normal mood Skin exam: Present: warm, dry, intact, normal color. Absent: rash <Mesfin Hutchison - Last Filed: 10/02/24 17:29> - General Exam Comments Initial Comments: Visual Physical Exam Vital signs reviewed General: Well-appearing, nontoxic, no acute distress. Head: Normocephalic, atraumatic Eyes: PERRLA, EOMI ENT: Airway patent Chest: Nonlabored breathing Skin: No visual rash, normal skin tone Neuro: Alert and oriented 3 Musculoskeletal: No gross abnormalities (Ana Luisa Hernandez) Course <Mesfin Hutchison - Last Filed: 10/02/24 17:29> Vital Signs 10/02/24 13:41 Temperature 97.7 F Pulse Rate 82 Respiratory 18 Rate Blood Pressure 120/69 O2 Sat by Pulse 100 Oximetry - Reevaluation(s) Reevaluation #1: 10/02/24 15:26 Records reviewed (Mesfin Hutchison) Reevaluation #2: 10/02/24 17:28 Patient's pain is controlled (Mesfin Hutchison) Reevaluation #3: 10/02/24 17:28 Patient informed of results and questions answered (Mesfin Hutchison) Reevaluation #4: Was pt. sent in by a medical professional or institution (, PA, RESP THER, urgent care, hospital, or care home...) When possible be specific @ -no Did you speak to anyone other than the patient for history (EMS, parent, family, police, friend...)? What history was obtained from this source @ -no Did you review nursing and triage notes (agree or disagree)? Why? @ -agree Are old charts reviewed (outside hosp., previous admission, EMS record, old EKG, old radiological studies, urgent care reports/EKG's, care home records)? Report findings @ -yes Differential Diagnosis (chest pain, altered mental status, abdominal pain women, abdominal pain men, vaginal bleeding, weakness, fever, dyspnea, syncope, headache, dizziness, GI bleed, back pain, seizure, CVA, palpatations, mental health, musculoskeletal)? @ -prior EKG interpreted by me (3pts min.). @ -yes X-rays interpreted by me (1pt min.). @ -yes negative for acute disease CT interpreted by me (1pt min.). @ -no U/S interpreted by me (1pt. min.). @ -no What testing was considered but not performed or refused? (CT, X-rays, U/S, labs)? Why? @ -none What meds were considered but not given or refused? Why? @ -none Did you discuss the management of the patient with other professionals (professionals i.e. , PA, RESP THER, lab, RT, psych nurse, social work job titles, progressive assembler and fitter, teacher, special weapons and tactics officer, showcase maker)? Give summary @ -no Was smoking cessation discussed for >3mins.? @ -no Was critical care preformed (if so, how long)? @ -no Were there social determinants of health that impacted care today? How? (Homelessness, low income, unemployed, alcoholism, drug addiction, transpo rtation, low edu. Level, literacy, decrease access to med. care, usp, rehab)? @ -none Was there de-escalation of care discussed even if they declined (Discuss DNR or withdrawal of care, Hospice)? DNR status @ -no What co-morbidities impacted this encounter? (DM, HTN, Smoking, COPD, CAD, Cancer, CVA, ARF, Chemo, Hep., AIDS, mental health diagnosis, sleep apnea, morbid obesity)? @ -none Was patient admitted / discharged? Hospital course, mention meds given and route, prescriptions, significant lab abnormalities, going to OR and other pertinent info. @ - Undiagnosed new problem with uncertain prognosis? @ -no Drug Therapy requiring intensive monitoring for toxicity (Heparin, Nitro, Insul in, Cardizem)? @ -no Were any procedures done? @ -no Diagnosis/symptom? @ - Acute, or Chronic, or Acute on Chronic? @ -Acute Uncomplicated (without systemic symptoms) or Complicated (systemic symptoms)? @ -Complicated Side effects of treatment? @ -no Exacerbation, Progression, or Severe Exacerbation? @ -exacerbation Poses a threat to life or bodily function? How? (Chest pain, USA, CA, pneumonia, PE, COPD, DKA, ARF, appy, cholecystitis, CVA, Diverticulitis, Homicidal, Suicidal, threat to staff... and all critical care pts) @ -yes (Mesfin Hutchison) Reevaluation #5: Differential Weakness: Hypoglycemia, shock, sepsis, hyponatremia, anemia, infection, CA, ETOH, adverse medicine reaction, overdose, stroke, this is not meant to be an all-inclusive list. (Mesfin Hutchison) - Consultations Consultation #1: Spoke with sound who agrees to admit this patient (Mesfin Hutchison) Medical Decision Making <Ana Luisa Hernandez - Last Filed: 10/02/24 13:57> - Lab Data Result diagrams: 10/02/24 16:20 10/02/24 16:20 - EKG Data -: EKG Interpreted by Me (EKG is sinus 82 NM 153 QRS 82 QTc 391) - Radiology Data Radiology results: report reviewed (Chest x-ray negative, CT pelvis positive for left inferior pubic rami fracture), image reviewed <Mesfin Hutchison - Last Filed: 10/02/24 17:29> - Medical Decision Making I performed the QuickNote portion of this chart. Signed Ana Luisa Hernandez PA-C. (Ana Luisa Hernandez) 79 female to evaluate after a fall. Patient does have left inferior pubic rami fracture, patient will need observation for PT OT pain control with underlying history of CKD persistent weakness and decreased activities of daily living fall was greater than 4 days ago (Mesfin Hutchison) - Lab Data Lab Results 11/20/24 11/20/24 11/20/24 Range/Units 16:20 16:20 16:20 WBC 9.5 (3.8-10.6) k/uL RBC 2.96 L (3.80-5.40) m/uL Hgb 9.4 L (11.4-16.0) gm/dL Hct 29.1 L (34.0-46.0) % MCV 98.3 D (80.0-100.0) fL MCH 31.8 (25.0-35.0) pg MCHC 32.3 (31.0-37.0) g/dL RDW 16.6 H (11.5-15.5) % Plt Count 263 (150-450) k/uL MPV 7.7 Neutrophils % 78 % Lymphocytes % 16 % Monocytes % 5 % Eosinophils % 0 % Basophils % 0 % Neutrophils # 7.4 (1.3-7.7) k/uL Lymphocytes # 1.5 (1.0-4.8) k/uL Monocytes # 0.5 (0-1.0) k/uL Eosinophils # 0.0 (0-0.7) k/uL Basophils # 0.0 (0-0.2) k/uL Poikilocytosis Slight Anisocytosis Slight Macrocytosis Slight PT 10.7 (10.0-12.5) sec INR 1.0 (<1.2) APTT 23.9 (22.0-30.0) sec Sodium 138 (137-145) mmol/L Potassium 5.2 H (3.5-5.1) mmol/L Chloride 103 (98-107) mmol/L Carbon Dioxide 25 (22-30) mmol/L Anion Gap 10 mmol/L BUN 35 H (7-17) mg/dL Creatinine 3.11 H (0.52-1.04) mg/dL Est GFR (CKD-EPI)AfAm 16 (>60 ml/min/1.73 sqM) Est GFR (CKD-EPI)NonAf 14 (>60 ml/min/1.73 sqM) Glucose 96 (74-99) mg/dL Calcium 9.0 (8.4-10.2) mg/dL Phosphorus 4.7 H (2.5-4.5) mg/dL Magnesium 2.0 (1.6-2.3) mg/dL Total Bilirubin 0.7 (0.2-1.3) mg/dL AST 17 (14-36) U/L ALT <6 (4-34) U/L Alkaline Phosphatase 101 (38-126) U/L Troponin I (0.000-0.034) ng/mL Total Protein 7.1 (6.3-8.2) g/dL Albumin 4.0 (3.5-5.0) g/dL TSH 1.710 (0.465-4.680) mIU/L 10/02/24 Range/Units 16:20 WBC (3.8-10.6) k/uL RBC (3.80-5.40) m/uL Hgb (11.4-16.0) gm/dL Hct (34.0-46.0) % MCV (80.0-100.0) fL MCH (25.0-35.0) pg MCHC (31.0-37.0) g/dL RDW (11.5-15.5) % Plt Count (150-450) k/uL MPV Neutrophils % % Lymphocytes % % Monocytes % % Eosinophils % % Basophils % % Neutrophils # (1.3-7.7) k/uL Lymphocytes # (1.0-4.8) k/uL Monocytes # (0-1.0) k/uL Eosinophils # (0-0.7) k/uL Basophils # (0-0.2) k/uL Poikilocytosis Anisocytosis Macrocytosis PT (10.0-12.5) sec INR (<1.2) APTT (22.0-30.0) sec Sodium (137-145) mmol/L Potassium (3.5-5.1) mmol/L Chloride (98-107) mmol/L Carbon Dioxide (22-30) mmol/L Anion Gap mmol/L BUN (7-17) mg/dL Creatinine (0.52-1.04) mg/dL Est GFR (CKD-EPI)AfAm (>60 ml/min/1.73 sqM) Est GFR (CKD-EPI)NonAf (>60 ml/min/1.73 sqM) Glucose (74-99) mg/dL Calcium (8.4-10.2) mg/dL Phosphorus (2.5-4.5) mg/dL Magnesium (1.6-2.3) mg/dL Total Bilirubin (0.2-1.3) mg/dL AST (14-36) U/L ALT (4-34) U/L Alkaline Phosphatase (38-126) U/L Troponin I <0.012 (0.000-0.034) ng/mL Total Protein (6.3-8.2) g/dL Albumin (3.5-5.0) g/dL TSH (0.465-4.680) mIU/L Disposition <Ana Luisa Hernandez - Last Filed: 10/02/24 13:57> Is patient prescribed a controlled substance at d/c from ED?: No Time of Disposition: 17:00 <Mesfin Hutchison - Last Filed: 10/02/24 17:29> Clinical Impression: Fall, Fracture of left inferior pubic ramus, Dehydration, Weakness, CKD (chronic kidney disease) Disposition: ADMITTED IP TO THIS HOSP Condition: Fair Referrals: Daniel Lala MD [Primary Care Provider] - 1-2 days
--- NOTE | 2024-10-02 15:22 | CT ---
EXAMINATION TYPE: CT pelvis wo con CT DLP: 175.5 mGycm, Automated exposure control for dose reduction was used. DATE OF EXAM: 10/02/2024 2:57 PM COMPARISON: Left femur and hip radiographs 10/02/2024, CT abdomen pelvis 01/05/2024 CLINICAL INDICATION:Female, 79 years old with history of pain, possible left hip fx; left hip pain, f all TECHNIQUE: Standard CT of the pelvis without IV or oral contrast. Lack of IV or oral contrast limit s evaluation of solid and hollow organ viscera. Coronal and sagittal reformats were performed. FINDINGS: BOWEL: No focal wall thickening or surrounding inflammatory changes. Mildly redundant sigmoid colon. No evidence of bowel obstruction. PERITONEUM: No evidence of pneumoperitoneum or free fluid. VASCULATURE: Atherosclerotic calcification of the visualized distal abdominal aorta and its branches. No visualized distal abdominal aortic aneurysm. Pelvic phleboliths. MUSCULOSKELETAL: Diffuse bone demineralization. Remote healed fracture of the right sacral ala. Remot e healed fractures of the right superior and inferior pubic rami. Acute nondisplaced fracture of the left inferior pubic ramus. Mild osteoarthritic changes of both hips with marginal acetabular sclerosi s and spurring. No acute hip fracture or acetabular fracture. Degenerative changes of visualized spin e. LYMPH NODES: No gross evidence for lymphadenopathy. SOFT TISSUE/ABDOMINAL WALL: Unremarkable IMPRESSION: 1. Acute nondisplaced left inferior pubic ramus fracture. No acute hip or acetabular fracture. 2. Healed right superior and inferior pubic rami fractures. Additional healed right sacral ala fractu re. [facility], , 10/02/2024 3:20 PM
--- NOTE | 2024-10-02 15:45 | XR ---
EXAMINATION TYPE: XR chest 1V portable DATE OF EXAM: 10/02/2024 3:30 PM COMPARISON: Chest radiographs from 04/11/2024 CLINICAL INDICATION: Female, 79 years old with history of fall; TECHNIQUE: XR chest 1V portable Frontal view of the chest. FINDINGS: Lungs/Pleura: There is no evidence of pleural effusion, focal consolidation, or pneumothorax. Pulmonary vascularity: Unremarkable. Heart/mediastinum: Cardiomediastinal silhouette is unremarkable. Musculoskeletal: No acute osseous pathology. Right central venous catheter with tip in appropriate position at superior cavoatrial junction. IMPRESSION: No acute cardiopulmonary disease/process. [facility], , 10/02/2024 3:42 PM
[2024-10-02 16:45] LABS: Partial Thromboplastin Time 23.9 sec (22.0-30.0); Prothrombin Time 10.7 sec (10.0-12.5)
[2024-10-02 16:48] LABS: ALT <6 U/L (4-34); AST 17 U/L (14-36); African American GFR (CKD) 16 (>60 ml/min/1.73 sqM); Alkaline Phosphatase 101 U/L (38-126); Anion Gap 10 mmol/L; Blood Urea Nitrogen 35 mg/dL (7-17); Carbon Dioxide 25 mmol/L (22-30); Chloride 103 mmol/L (98-107); Glucose 96 mg/dL (74-99); Non-African American GFR(CKD) 14 (>60 ml/min/1.73 sqM); Phosphorus 4.7 mg/dL (2.5-4.5); Potassium 5.2 mmol/L (3.5-5.1); Sodium 138 mmol/L (137-145); Total Bilirubin 0.7 mg/dL (0.2-1.3); Total Protein 7.1 g/dL (6.3-8.2)
[2024-10-02 16:57] LABS: Anisocytosis Slight; Basophils % (A) 0 %; Eosinophils % (A) 0 %; HCT 29.1 % (34.0-46.0); HGB 9.4 gm/dL (11.4-16.0); Lymphocytes # (A) 1.5 k/uL (1.0-4.8); Lymphocytes % (A) 16 %; MCH 31.8 pg (25.0-35.0); MCHC 32.3 g/dL (31.0-37.0); Macrocytosis Slight; Mean Platelet Volume 7.7; Monocytes # (A) 0.5 k/uL (0-1.0); Monocytes % (A) 5 %; Neutrophils # (A) 7.4 k/uL (1.3-7.7); Neutrophils % (A) 78 %; Platelet Count 263 k/uL (150-450); Poikilocytosis Slight; RBC 2.96 m/uL (3.80-5.40); RDW 16.6 % (11.5-15.5); WBC 9.5 k/uL (3.8-10.6)
[2024-10-02 17:01] LABS: MCV 98.3 fL (80.0-100.0)
[2024-10-02] MEDS ORDERED: NALOXONE 0.4 MG/ML 1 ML VIAL IV PRN (17:24)
[2024-10-02] MEDS ORDERED: ONDANSETRON 4 MG/2 ML VIAL IVP PRN (17:24)
[2024-10-02] MEDS: SODIUM CHLORIDE 0.9% 1,000 ML IV STA (17:49)
[2024-10-02] MEDS: SODIUM CHLORIDE 0.9% 1,000 ML IV SCH (17:50)
[2024-10-02] MEDS: MORPHINE SULFATE 4 MG/ML SYRINGE IV STA (17:52)
[2024-10-02] MEDS: PANTOPRAZOLE 40 MG/10 ML VIAL IV SCH (17:52)
[2024-10-02] MEDS: ONDANSETRON 4 MG/2 ML VIAL IVP STA (17:52)
[2024-10-02] MEDS: ATORVASTATIN 40 MG TAB PO SCH (22:24)
[2024-10-02] MEDS: LACOSAMIDE 50 MG TABLET PO SCH (22:25)
[2024-10-02] MEDS: CARBIDOPA-LEVODOPA 25-100 MG 1 EACH TAB PO SCH (22:25)
--- NOTE | 2024-10-02 22:30 | P.HPIM ---
History of Present Illness H&P Date: 10/02/24 History of present illness; 79-year-old female with PMH of dementia, diabetes mellitus, ESRD on dialysis (TTS), hyperlipidemia, hypertension, thyroid disorder. Presents to the emergency department due to pain in her left hip area following a fall 5 days ago. Patient was sent to the emergency department for further evaluation following an outpatient x-ray which showed concern for fracture of the left hip. Patient states that the pain has been severe enough where she has had an inability to bear any weight. She rates the pain is continuing to be severe, 06/22. She states that 5 days ago, she is unsure how exactly she fell, all she recalls is she was in the middle of talking with her and she fell straight back. Since that time she has been unable to move without assistance in her house. At home, she is able to normally carry out ADLs with the assistance of her walker, however now she is unable to do anything without assistance from her . When seen at bedside today, she is resting comfortably, as she states she does not have any pain while lying/sitting still, the pain begins when she attempts to move. She does state that she has previously suffered a similar sort of injury to the right side, which was treated with conservative management at that time. She has no acute complaints. Labratory review: -WBCs 9.5, hemoglobin 9.4, hematocrit 29.1, platelet 263; sodium 138, potassium 5.2, BUN 35, creatinine 3.11, phosphorus 4.7, magnesium 2.0 Imaging: -Chest x-ray done in the ER showed no acute cardiopulmonary process -CT pelvis showed acute nondisplaced left inferior pubic ramus fracture. No acute hip or acetabular fracture. Healed right superior and inferior pubic rami fractures, additional healed right sacral jean carlos fracture -EKG done in the ER showed heart rate of , no ST segment elevation or depression seen, no T-wave inversions seen. Vitals: -Blood pressure 111/60, heart rate 78, respiratory rate 18, SpO2 97% room air Patient admitted to internal medicine service REVIEW OF SYSTEMS: CONSTITUTIONAL: No fever, no malaise, no fatigue. HEENT: No recent visual problems or hearing problems. Denied any sore throat. CARDIOVASCULAR: No chest pain, orthopnea, PND, no palpitations, no syncope. PULMONARY: No shortness of breath, no cough, no hemoptysis. GASTROINTESTINAL: No diarrhea, no nausea, no vomiting, no abdominal pain. NEUROLOGICAL: No headaches, no weakness, no numbness. HEMATOLOGICAL: Denies any bleeding or petechiae. GENITOURINARY: Denies any burning micturition, frequency, or urgency. MUSCULOSKELETAL/RHEUMATOLOGICAL: Denies any joint pain, swelling, or any muscle pain. ENDOCRINE: Denies any polyuria or polydipsia. The rest of the 14-point review of systems is negative. PHYSICAL EXAMINATION: GENERAL: The patient is alert and oriented x3, not in any acute distress. Well developed, well nourished. HEENT: No scleral icterus. No conjunctival pallor. Normocephalic, atraumatic. CARDIOVASCULAR: S1 and S2 present. No murmurs, rubs, or gallops. PULMONARY: Chest is clear to auscultation, no wheezing or crackles. ABDOMEN: Soft, nontender, nondistended, normoactive bowel sounds. No palpable organomegaly. MUSCULOSKELETAL: No joint swelling or deformity. EXTREMITIES: No cyanosis, clubbing, or pedal edema. NEUROLOGICAL: Gross neurological examination did not reveal any focal deficits. Strength 5/5 in all extremities except proximal left lower extremity due to pa in, distal LLE strength 5/5 including ankle SKIN: No rashes. Assessment and plan 79-year-old female PMH significant for diabetes mellitus, dementia, ESRD on dialysis (TTS), hyperlipidemia, hypertension, thyroid disorder. Presents emergency department 5 days following a fall with continuing severe left hip pain with an inability to bear weight. Discussed with the ED patient admitted to the internal medicine service for further evaluation. #Acute left pubic rami fracture -Orthopedic surgery consulted -Continue pain control with 4 mg IV Morphine Q4HR PRN -PT consulted -Fall precautions #ESRD on dialysis (TTS schedule) #Hyperphosphatemia -Patient maintained Monday, , Monday dialysis schedule -Nephrology consulted -Avoid nephrotoxic agents -Monitor magnesium, phosphorus #Diabetes mellitus -Patient maintained on a sliding scale at home, and only utilizes insulin as needed when she checks around meals -Accu-Cheks #Hypertension -Continue home medication Norvasc 5 mg daily #Hyperlipidemia -Lipitor 40 mg daily #Hypothyroidism -Continue home levothyroxine 100 mcg daily , 50 mcg on Monday #Parkinson's -Continue home carbidopalevodopa 25-100 mg #Anxiety/depression -Continue 20 mg Celexa daily CODE STATUS: Full Code GI prohylaxis: Protonix 40 mg daily DVT prophylaxis: 5,000 units Heparin sq Q8H Dictation was produced using [employer] dictation software. please excuse any grammatical, word or spelling errors. Past Medical History Past Medical History: Dementia, Diabetes Mellitus, Dialysis, Hyperlipidemia, Hypertension, Renal Disease, Thyroid Disorder Additional Past Medical History / Comment(s): dailysis tu,th,sa History of Any Multi-Drug Resistant Organisms: None Reported Date of last positivie culture/infection: 01/04/24 MDRO Source:: Urine Past Surgical History: Orthopedic Surgery Additional Past Surgical History / Comment(s): shoulder infection , Past Anesthesia/Blood Transfusion Reactions: No Reported Reaction Past Psychological History: Anxiety, Depression Smoking Status: Never smoker - Past Family History Brother(s) Additional Family Medical History / Comment(s): Unable to obtain due to patient's underlying dementia Medications and Allergies Home Medications Medication Instructions Recorded Confirmed Type Levothyroxine Sodium 100 mcg PO MOTUWETHFRSA@0600 07/27/22 10/02/24 History Simvastatin [Zocor] 80 mg PO HS 07/27/22 10/02/24 History Carbidopa-Levodopa 25-100 mg 1 tab PO DIRECTED 10/30/23 10/02/24 History [Sinemet 25-100 mg] Furosemide [Lasix] 60 mg PO DAILY@1200 02/09/24 10/02/24 History Levothyroxine Sodium [Synthroid] 50 mcg PO CALABRESE@0600 02/09/24 10/02/24 History Pantoprazole [Protonix] 40 mg PO BID 02/09/24 10/02/24 History Potassium Chloride ER [K-Dur 20] 20 meq PO DAILY@1200 04/11/24 10/02/24 History Mirtazapine [Remeron] 7.5 mg PO HS 08/18/24 10/02/24 History Lacosamide 50 mg PO TUTHSA 09/03/24 10/02/24 History Acetaminophen Tab [Tylenol Tab] 500 - 1,000 mg PO Q6H PRN 10/02/24 10/02/24 History Ascorbic Acid [Vitamin C] 500 mg PO DAILY@1200 10/02/24 10/02/24 History Aspirin EC [Ecotrin Low Dose] 81 mg PO DAILY 10/02/24 10/02/24 History Citalopram Hydrobromide [CeleXA] 20 mg PO DAILY 10/02/24 10/02/24 History INSULIN LISPRO (HumaLOG) [humaLOG] See Protocol SQ ACHS 10/02/24 10/02/24 History Lacosamide [Vimpat] 100 mg PO BID 10/02/24 10/02/24 History Magnesium Oxide [Mag-Ox] 400 mg PO DAILY@1200 10/02/24 10/02/24 History amLODIPine [Norvasc] 5 mg PO DAILY@1200 10/02/24 10/02/24 History Allergies Allergy/AdvReac Type Severity Reaction Status Date / Time No Known Allergies Allergy Verified 10/02/24 17:59 Physical Exam Vitals: Vital Signs Temp Pulse Resp BP Pulse Ox 10/02/24 19:13 97.8 F 78 18 111/60 97 10/02/24 13:41 97.7 F 82 18 120/69 100 Intake and Output 10/02/24 10/02/24 10/02/24 06:59 14:59 22:59 Other: Weight 47.627 kg Results CBC & Chem 7: 10/02/24 16:20 10/02/24 16:20 Labs: Abnormal Lab Results - Last 24 Hours (Table) 10/02/24 10/02/24 Range/Units 16:20 16:20 RBC 2.96 L (3.80-5.40) m/uL Hgb 9.4 L (11.4-16.0) gm/dL Hct 29.1 L (34.0-46.0) % RDW 16.6 H (11.5-15.5) % Potassium 5.2 H (3.5-5.1) mmol/L BUN 35 H (7-17) mg/dL Creatinine 3.11 H (0.52-1.04) mg/dL Phosphorus 4.7 H (2.5-4.5) mg/dL
[2024-10-02 23:24] LABS: Glucose,Whole Blood 92 mg/dL (70-110)
[2024-10-02] MEDS: HEPARIN SODIUM,PORCINE 5,000 UNIT/ML 1 ML VIAL SQ SCH (23:48)
[2024-10-03 00:16] LABS: Appearance,Urine Clear (Clear); Bacteria,Urine Occasional /hpf; Bilirubin,Urine Negative (Negative); Blood,Urine Moderate (Negative); Color,Urine Colorless; Glucose,Urine (UA) Negative (Negative); Ketones,Urine Negative (Negative); Leukocyte Esterase,Urine Negative (Negative); Mucus,Urine Rare /hpf; Nitrite,Urine Negative (Negative); PH, Urine 7.5 (5.0-8.0); Protein,Urine Trace (Negative); RBC,Urine 44 /hpf (0-5); Specific Gravity,Urine 1.008 (1.001-1.035); Squamous Epithelial Cell,Urine 6 /hpf (0-4); Urobilinogen,Urine <2.0 mg/dL (<2.0); WBC,Urine 1 /hpf (0-5)
[2024-10-03] MEDS: MORPHINE SULFATE 4 MG/ML SYRINGE IV PRN (04:02)
[2024-10-03] MEDS: LEVOTHYROXINE 100 MCG TAB PO SCH (06:10)
[2024-10-03 08:57] LABS: Glucose,Whole Blood 84 mg/dL (70-110)
[2024-10-03] MEDS: INSULIN ASPART (NovoLOG) 100 UNIT/ML VIAL SQ SCH (09:35)
[2024-10-03] MEDS: CITALOPRAM HYDROBROMIDE 20 MG TAB PO SCH (09:35)
[2024-10-03 10:32] LABS: MCH 31.4 pg (27.0-32.0); MCHC 29.6 g/dL (32.0-37.0); MCV 105.9 FL (80.0-97.0); Mean Platelet Volume 9.8 FL (9.5-12.2); NRBC Per 100 WBC 0 X 10*3/uL (0.00-0.01); Platelet Count 202 X 10*3/uL (140-440); RBC 2.55 X 10*6/uL (4.10-5.20); RDW 17.2 % (11.5-14.5); WBC 6.95 X 10*3/uL (4.50-10.00)
--- NOTE | 2024-10-03 10:41 | P.CNOR ---
History of Present Illness - [facility] Consult date: 10/03/24 Consult reason: fracture (Left sided inferior pubic rami fracture) History of present illness: Patient is a 79-year-old female who was brought to [facility] for further evaluation of a left lower extremity injury. Currently the patient fell about 5 days ago and initially had done decent with her weightbearing, over the last 5 days her weightbearing status and ability to take care of herself is gotten a lot worse. Patient does live with her and is normally very independent. Patient was admitted under internal medicine, orthopedic team was consulted. Patient was evaluated today at bedside, she is resting comfortably, her was present at bedside. We have actually seen this patient in the past, this past December she had a abscess involving the left shoulder that we did do surgery on with Dr. Almonte. Patient also has a previous history of a right sided superior and inferior pubic rami fracture and sacral alar fracture in October 2023 that was treated conservatively. CT scan of the pelvis that was done at her most recent visit demonstrated a minimally displaced left inferior pubic rami fracture. Patient states that she healed rather well from her right sided fracture a year ago, she spent about a month in subacute rehab. Patient is on dialysis for end-stage kidney disease. Patient normally will utilize a walker or cane for ambulation. She states most of the pain is in the pelvic region on the left side with motion of that extremity. She denies any new onset cervical, thoracic or lumbar pain. She denies any numbness or tingling or loss of strength or motion of the bilateral upper or lower extremities. Review of Systems Constitutional: Reports as per HPI Past Medical History Past Medical History: Dementia, Diabetes Mellitus, Dialysis, Hyperlipidemia, Hypertension, Renal Disease, Thyroid Disorder Additional Past Medical History / Comment(s): dailysis ,th,sa History of Any Multi-Drug Resistant Organisms: None Reported Year Discovered:: 01/04/24 MDRO Source:: Urine Past Surgical History: Orthopedic Surgery Additional Past Surgical History / Comment(s): shoulder infection , Past Anesthesia/Blood Transfusion Reactions: No Reported Reaction Past Psychological History: Anxiety, Depression Smoking Status: Never smoker - Past Family History Brother(s) Additional Family Medical History / Comment(s): Unable to obtain due to patient's underlying dementia Medications and Allergies Home Medications Medication Instructions Recorded Confirmed Type Levothyroxine Sodium 100 mcg PO MOTUWETHFRSA@0600 07/27/22 10/02/24 History Simvastatin [Zocor] 80 mg PO HS 07/27/22 10/02/24 History Carbidopa-Levodopa 25-100 mg 1 tab PO DIRECTED 10/30/23 10/02/24 History [Sinemet 25-100 mg] Furosemide [Lasix] 60 mg PO DAILY@1200 02/09/24 10/02/24 History Levothyroxine Sodium [Synthroid] 50 mcg PO CALABRESE@0600 02/09/24 10/02/24 History Pantoprazole [Protonix] 40 mg PO BID 02/09/24 10/02/24 History Potassium Chloride ER [K-Dur 20] 20 meq PO DAILY@1200 04/11/24 10/02/24 History Mirtazapine [Remeron] 7.5 mg PO HS 08/18/24 10/02/24 History Lacosamide 50 mg PO TUTHSA 09/03/24 10/02/24 History Acetaminophen Tab [Tylenol Tab] 500 - 1,000 mg PO Q6H PRN 10/02/24 10/02/24 History Ascorbic Acid [Vitamin C] 500 mg PO DAILY@1200 10/02/24 10/02/24 History Aspirin EC [Ecotrin Low Dose] 81 mg PO DAILY 10/02/24 10/02/24 History Citalopram Hydrobromide [CeleXA] 20 mg PO DAILY 10/02/24 10/02/24 History INSULIN LISPRO (HumaLOG) [humaLOG] See Protocol SQ ACHS 10/02/24 10/02/24 History Lacosamide [Vimpat] 100 mg PO BID 10/02/24 10/02/24 History Magnesium Oxide [Mag-Ox] 400 mg PO DAILY@1200 10/02/24 10/02/24 History amLODIPine [Norvasc] 5 mg PO DAILY@1200 10/02/24 10/02/24 History Allergies Allergy/AdvReac Type Severity Reaction Status Date / Time No Known Allergies Allergy Verified 10/02/24 17:59 Physical Examination Left lower extremity: Overall alignment of the extremity is normal, no significant shortening or abnormal rotation compared to the contralateral side No significant areas of soft tissue swelling or ecchymosis. Appreciated throughout the extremity Patient is nontender with palpation throughout the proximal femur, knee, lower leg, foot or ankle Logroll maneuver does reproduce pain in the pelvis, she has a difficult time with straight leg raise Calf is soft, no tenderness with palpation Plantarflexion, dorsiflexion, EHL, FHL are intact Sensory exam to light touch is intact throughout the extremity Dorsalis pedis pulses 2+ Results - Labs Labs: Abnormal Lab Results - Last 24 Hours (Table) 10/02/24 10/02/24 10/02/24 Range/Units 16:20 16:20 23:50 RBC 2.96 L (3.80-5.40) m/uL Hgb 9.4 L (11.4-16.0) gm/dL Hct 29.1 L (34.0-46.0) % MCV (80.0-97.0) FL MCHC (32.0-37.0) g/dL RDW 16.6 H (11.5-15.5) % Potassium 5.2 H (3.5-5.1) mmol/L BUN 35 H (7-17) mg/dL Creatinine 3.11 H (0.52-1.04) mg/dL Phosphorus 4.7 H (2.5-4.5) mg/dL Urine Protein Trace H (Negative) Urine Blood Moderate H (Negative) Urine RBC 44 H (0-5) /hpf Ur Squamous Epith Cells 6 H (0-4) /hpf Urine Bacteria Occasional H (None) /hpf Urine Mucus Rare H (None) /hpf 10/03/24 Range/Units 07:19 RBC 2.55 L (3.80-5.40) m/uL Hgb 8.0 L (11.4-16.0) gm/dL Hct 27.0 L (34.0-46.0) % MCV 105.9 H (80.0-97.0) FL MCHC 29.6 L (32.0-37.0) g/dL RDW 17.2 H (11.5-15.5) % Potassium (3.5-5.1) mmol/L BUN (7-17) mg/dL Creatinine (0.52-1.04) mg/dL Phosphorus (2.5-4.5) mg/dL Urine Protein (Negative) Urine Blood (Negative) Urine RBC (0-5) /hpf Ur Squamous Epith Cells (0-4) /hpf Urine Bacteria (None) /hpf Urine Mucus (None) /hpf H & H 10/02/24 10/03/24 Range/Units 16:20 07:19 Hgb 9.4 L 8.0 L (11.4-16.0) gm/dL Hct 29.1 L 27.0 L (34.0-46.0) % Coagulation 10/02/24 Range/Units 16:20 INR 1.0 (<1.2) Result Diagrams: 10/03/24 07:19 10/02/24 16:20 Assessment and Plan Assessment: Left sided inferior pubic rami fracture Previous right sided LC type I fracture, healed Status post recent fall End-stage renal disease on dialysis Other medical comorbidities Plan: Imaging: CT scan without contrast of the pelvis was reviewed, this to include images and reports. They do demonstrate the previous right sided sacral alar, inferior and superior pubic rami fractures with good healing. There is evidence of a minimally displaced left inferior pubic rami fracture. Hip joint remains intact bilaterally Plan: I was able to discuss the case, this to include physical exam findings and imaging studies my attending Dr. lAves's and. No orthopedic surgical intervention recommended at this time Recommend conservative measures, this to include pain control with oral versus IV medications, icing and elevating of the extremity, and protective weightbearing Protective weightbearing left lower extremity, recommend use of a walker at all times PT/OT recommendations GI and DVT prophylaxis per primary medical service Medical recommendations appreciated Discharge planning: Patient would benefit from subacute rehab placement for daily physical therapy. We would like to see the patient in office in the next 2 to 3 weeks for clinical and x-ray evaluation. Please contact our service with any further questions regarding this patient Time with Patient: Less than 30
[2024-10-03 10:42] LABS: ALT <5 U/L (8-44); AST 13 U/L (13-35); Albumin 3.5 g/dL (3.8-4.9); Albumin/Globulin Ratio 1.46 Ratio (1.60-3.17); Alkaline Phosphatase 85 U/L (41-126); BUN/Creat Ratio 10.71 Ratio (12.00-20.00); Blood Urea Nitrogen 37.5 mg/dL (9.0-27.0); Calcium 8.6 mg/dL (8.7-10.3); Carbon Dioxide 23.7 mmol/L (21.6-31.8); Chloride 106 mmol/L (96-109); Globulin 2.4 g/dL (1.6-3.3); Glucose 96 mg/dL (70-110); Magnesium 2.1 mg/dL (1.5-2.4); Phosphorus 5.5 mg/dL (2.4-5.1); Potassium 5.3 mmol/L (3.5-5.5); Sodium 142 mmol/L (135-145); Total Bilirubin 0.2 mg/dL (0.3-1.2); Total Protein 5.9 g/dL (6.2-8.2)
[2024-10-03 12:06] LABS: Glucose,Whole Blood 157 mg/dL (70-110)
--- NOTE | 2024-10-03 12:07 | P.NPCON ---
History of Present Illness - Reason for Consult end stage renal disease - History of Present Illness Reason for consultation: End-stage renal disease History of present illness: Patient is a 79-year-old female seen in renal consultation for end-stage renal disease. She is maintained on hemodialysis on Monday schedule via permacath. She has a maturing left upper extremity AV graft. Patient came to the hospital after she sustained a fall at home last Monday. Patient states she lost balance and fell backwards. She is noted to have left pubic rami fracture. Patient does have history of diabetes. Denies history of coronary artery disease. Makes little urine. Hemodynamically stable. She has been evaluated by vascular surgery and no surgeries are planned at this time. She will be evaluated by PT OT. Vital signs are stable. General: No acute distress. HEENT: Head exam is unremarkable. LUNGS: No audible rhonchi or wheezes. HEART: Rate and Rhythm are regular. ABDOMEN: Nontender. EXTREMITITES: No edema. Past Medical History Past Medical History: Dementia, Diabetes Mellitus, Dialysis, Hyperlipidemia, Hypertension, Renal Disease, Thyroid Disorder Additional Past Medical History / Comment(s): dailysis History of Any Multi-Drug Resistant Organisms: None Reported Date of last positivie culture/infection: 01/04/24 MDRO Source:: Urine Past Surgical History: Orthopedic Surgery Additional Past Surgical History / Comment(s): shoulder infection , Past Anesthesia/Blood Transfusion Reactions: No Reported Reaction Past Psychological History: Anxiety, Depression Smoking Status: Never smoker - Past Family History Brother(s) Additional Family Medical History / Comment(s): Unable to obtain due to patient's underlying dementia Medications and Allergies Home Medications Medication Instructions Recorded Confirmed Type Levothyroxine Sodium 100 mcg PO MOTUWETHFRSA@0600 07/27/22 10/02/24 History Simvastatin [Zocor] 80 mg PO HS 07/27/22 10/02/24 History Carbidopa-Levodopa 25-100 mg 1 tab PO DIRECTED 10/30/23 10/02/24 History [Sinemet 25-100 mg] Furosemide [Lasix] 60 mg PO DAILY@1200 02/09/24 10/02/24 History Levothyroxine Sodium [Synthroid] 50 mcg PO CALABRESE@0600 02/09/24 10/02/24 History Pantoprazole [Protonix] 40 mg PO BID 02/09/24 10/02/24 History Potassium Chloride ER [K-Dur 20] 20 meq PO DAILY@1200 04/11/24 10/02/24 History Mirtazapine [Remeron] 7.5 mg PO HS 08/18/24 10/02/24 History Lacosamide 50 mg PO TUTHSA 09/03/24 10/02/24 History Acetaminophen Tab [Tylenol Tab] 500 - 1,000 mg PO Q6H PRN 10/02/24 10/02/24 History Ascorbic Acid [Vitamin C] 500 mg PO DAILY@1200 10/02/24 10/02/24 History Aspirin EC [Ecotrin Low Dose] 81 mg PO DAILY 10/02/24 10/02/24 History Citalopram Hydrobromide [CeleXA] 20 mg PO DAILY 10/02/24 10/02/24 History INSULIN LISPRO (HumaLOG) [humaLOG] See Protocol SQ ACHS 10/02/24 10/02/24 History Lacosamide [Vimpat] 100 mg PO BID 10/02/24 10/02/24 History Magnesium Oxide [Mag-Ox] 400 mg PO DAILY@1200 10/02/24 10/02/24 History amLODIPine [Norvasc] 5 mg PO DAILY@1200 10/02/24 10/02/24 History Allergies Allergy/AdvReac Type Severity Reaction Status Date / Time No Known Allergies Allergy Verified 10/02/24 17:59 Physical Exam Vitals: Vital Signs Temp Pulse Pulse Resp BP BP Pulse Ox 10/03/24 08:43 98.0 F 74 17 130/59 98 10/03/24 05:10 75 16 94/61 98 10/03/24 03:54 85 18 116/60 97 10/03/24 01:09 73 18 134/68 100 10/02/24 23:28 72 16 95/47 96 10/02/24 19:13 97.8 F 78 18 111/60 97 10/02/24 13:41 97.7 F 82 18 120/69 100 Results - Lab Results Most recent lab results Calcium 8.6 mg/dL (8.7-10.3) L 10/03/24 07:19 Phosphorus 5.5 mg/dL (2.4-5.1) H 10/03/24 07:19 Magnesium 2.1 mg/dL (1.5-2.4) 10/03/24 07:19 10/03/24 07:19 10/03/24 07:19 Assessment and Plan Plan: Assessment: 1. End-stage renal disease maintained on hemodialysis on Monday schedule via permacath. Has maturing left upper extremity AV graft. 2. Status post fall with left pubic rami fracture. No surgeries planned by orthopedic surgery. 3. Diabetes mellitus. 4. Hypertension with chronic kidney disease. Stable. 5. Anemia of chronic kidney disease. 6. Chronic kidney disease mineral bone disease. Plan: Hemodialysis today. Check iron studies. Thank you for the consultation. I will continue to follow the patient with you during her hospital stay.
[2024-10-03] MEDS: amLODIPine 5 MG TAB PO SCH (12:49)
[2024-10-03 14:17] LABS: Basophils # (A) 0.04 X 10*3/uL (0.00-0.10); Basophils % (A) 0.6 %; Eosinophils # (A) 0.07 X 10*3/uL (0.04-0.35); Lymphocytes # (A) 1.72 X 10*3/uL (0.90-5.00); Lymphocytes % (A) 24.7 %; Macrocytosis (M) 2+; Monocytes # (A) 0.57 X 10*3/uL (0.20-1.00); Monocytes % (A) 8.2 %; Neutrophils # (A) 4.52 X 10*3/uL (1.80-7.70); Neutrophils % (A) 65.1 %
[2024-10-03 17:13] LABS: % Iron Saturation 29.91 (12.00-45.00)
--- NOTE | 2024-10-03 17:30 | P.PN ---
Subjective Progress Note Date: 10/03/24 79-year-old female with PMH of dementia, diabetes mellitus, ESRD on dialysis (TTS), hyperlipidemia, hypertension, thyroid disorder. Presents to the emergency department due to pain in her left hip area following a fall 5 days ago. Patient was sent to the emergency department for further evaluation follo wing an outpatient x-ray which showed concern for fracture of the left hip. WBCs 9.5, hemoglobin 9.4, hematocrit 29.1, platelet 263; sodium 138, potassium 5.2, BUN 35, creatinine 3.11, phosphorus 4.7, magnesium 2.0. Chest x-ray done in the ER showed no acute cardiopulmonary process. CT pelvis showed acute nondisplaced left inferior pubic ramus fracture. No acute hip or acetabular fracture. Heale d right superior and inferior pubic rami fractures, additional healed right sacral jean carlos fracture. EKG done in the ER showed heart rate of , no ST segment elevation or depression seen, no T-wave inversions seen. 10/03 Patient was seen and examined. No acute events overnight. No complaints. CBC and CMP significant for RBC 2.55, Hg 8, Hct 27, MCV 105.9, AG 12.3, BUN 37.5, Cr 3.5, Ca 8.6, Phos 5.5, Mag 2.1, T. Bili 0,2, ALT < 5, alb 3.5. Ortho consulted, recommends SNF. Nephrology consulted for HD on TTS schedule. General: non toxic, no distress, appears at stated age Derm: warm, dry Head: atraumatic, normocephalic, symmetric Eyes: EOMI, no lid lag, anicteric sclera Mouth: no lip lesion, mucus membranes moist Cardiovascular: S1S2 reg, no murmur Lungs: CTA bilateral, no rhonchi, no rales , no accessory muscle use Abdominal: soft, nontender to palpation, no guarding, no appreciable organome shantel Ext: no gross muscle atrophy, no edema, no contractures Neuro: no focal neuro deficits Psych: Alert, oriented, appropriate affect Based on my assessment of this patient, this patient meets a high complexity level of care. Acute left pubic rami fracture: Ortho on board. Plans for SNF. PT and OT on board. Fall precautions. ESRD on dialysis (TTS schedule): Nephrology consult for HD. Hyperphosphatemia Diabetes mellitus: ISS with accuchecks ACHS. Hypertension: Norvasc 5 mg PO daily. Hyperlipidemia: Lipitor 40 mg PO daily. Hypothyroidism: Continue home levothyroxine 100 mcg PO daily , 50 mcg on Monday Parkinson's: Continue home carbidopalevodopa 25-100 mg. Anxiety/depression: Continue Celexa 20 mg PO QD. CODE STATUS: NO CODE DVT Prophylaxis: Heparin SQ GI Prophylaxis: Protonix IV Designated medical POA if patient is not able to make medical decisions for themselves: I have reviewed the following design and sales consultant notes: Ortho, Nephrology I have reviewed the results of the following tests: As above. I have ordered the following tests: CBC and BMP in the AM. I have discussed the care of this patient with the following independent historian: I have independently interpreted the following test below: I have discussed the management of this patient with the following physician: Objective - Vital Signs Vital signs: Vital Signs Temp 98.1 F 10/03/24 12:13 Pulse 69 10/03/24 12:13 Resp 16 10/03/24 12:13 BP 114/56 10/03/24 12:13 Pulse Ox 100 10/03/24 12:13 FiO2 Intake & Output 10/02/24 10/03/24 10/03/24 18:59 06:59 18:59 Output Total 400 Balance -400 Weight 47.627 kg 47.627 kg Output: Urine 400 - Labs CBC & Chem 7: 10/03/24 07:19 10/03/24 07:19 Labs: Abnormal Lab Results - Last 24 Hours (Table) 10/02/24 10/03/24 10/03/24 Range/Units 23:50 07:19 07:19 RBC 2.55 L (4.10-5.20) X 10*6/uL Hgb 8.0 L (12.0-15.0) g/dL Hct 27.0 L (37.2-46.3) % MCV 105.9 H (80.0-97.0) FL MCHC 29.6 L (32.0-37.0) g/dL RDW 17.2 H (11.5-14.5) % Macrocytosis (manual) 2+ A Anion Gap 12.30 H (4.00-12.00) mmol/L BUN 37.5 H (9.0-27.0) mg/dL Creatinine 3.5 H (0.6-1.5) mg/dL Est GFR (CKD-EPI) 13 L (>=60) BUN/Creatinine Ratio 10.71 L (12.00-20.00) Ratio POC Glucose (mg/dL) (70-110) mg/dL Calcium 8.6 L (8.7-10.3) mg/dL Phosphorus 5.5 H (2.4-5.1) mg/dL TIBC (228-460) UG/DL Transferrin (204.0-354.0) mg/dL Ferritin (10.0-291.0) ng/mL Total Bilirubin 0.2 L (0.3-1.2) mg/dL ALT <5 L (8-44) U/L Total Protein 5.9 L (6.2-8.2) g/dL Albumin 3.5 L (3.8-4.9) g/dL Albumin/Globulin Ratio 1.46 L (1.60-3.17) Ratio Urine Protein Trace H (Negative) Urine Blood Moderate H (Negative) Urine RBC 44 H (0-5) /hpf Ur Squamous Epith Cells 6 H (0-4) /hpf Urine Bacteria Occasional H (None) /hpf Urine Mucus Rare H (None) /hpf 10/03/24 10/03/24 Range/Units 12:05 12:07 RBC (4.10-5.20) X 10*6/uL Hgb (12.0-15.0) g/dL Hct (37.2-46.3) % MCV (80.0-97.0) FL MCHC (32.0-37.0) g/dL RDW (11.5-14.5) % Macrocytosis (manual) Anion Gap (4.00-12.00) mmol/L BUN (9.0-27.0) mg/dL Creatinine (0.6-1.5) mg/dL Est GFR (CKD-EPI) (>=60) BUN/Creatinine Ratio (12.00-20.00) Ratio POC Glucose (mg/dL) 157 H (70-110) mg/dL Calcium (8.7-10.3) mg/dL Phosphorus (2.4-5.1) mg/dL TIBC 214 L (228-460) UG/DL Transferrin 153.0 L (204.0-354.0) mg/dL Ferritin 790.0 H (10.0-291.0) ng/mL Total Bilirubin (0.3-1.2) mg/dL ALT (8-44) U/L Total Protein (6.2-8.2) g/dL Albumin (3.8-4.9) g/dL Albumin/Globulin Ratio (1.60-3.17) Ratio Urine Protein (Negative) Urine Blood (Negative) Urine RBC (0-5) /hpf Ur Squamous Epith Cells (0-4) /hpf Urine Bacteria (None) /hpf Urine Mucus (None) /hpf
[2024-10-03 17:37] LABS: Glucose,Whole Blood 105 mg/dL (70-110)
[2024-10-03] MEDS: CARBIDOPA-LEVODOPA 25-100 MG 1 EACH TAB PO PRN (18:52)
[2024-10-03] MEDS: LACOSAMIDE 50 MG TABLET PO PRN (18:52)
[2024-10-03 20:28] LABS: Glucose,Whole Blood 157 mg/dL (70-110)
--- NOTE | 2024-10-03 20:31 | US ---
EXAMINATION TYPE: US venous doppler duplex UE LT DATE OF EXAM: 10/03/2024 COMPARISON: NONE CLINICAL INDICATION: Female, 79 years old with history of recent AV graft, edema; EVAL AV GRAFT. Cailin ent states she thinks it was placed 3 weeks ago. Swelling TECHNIQUE: Grayscale, color Doppler and spectral Doppler imaging of the upper extremity. SIDE PERFORMED: Left FINDINGS: Left AV Graft: The graft in the lower left arm appears patent IMPRESSION: As above [facility] Edmundo Mas, , 10/03/2024 8:29 PM
[2024-10-04 07:26] LABS: Glucose,Whole Blood 93 mg/dL (70-110)
[2024-10-04] MEDS: SODIUM CHLORIDE 0.9% 1,000 ML IV ONE (09:13)
[2024-10-04 10:53] LABS: HCT 26.2 % (34.0-46.0); HGB 8.6 gm/dL (11.4-16.0); Hypochromasia Moderate; MCH 32.8 pg (25.0-35.0); MCHC 32.6 g/dL (31.0-37.0); MCV 100.7 fL (80.0-100.0); Macrocytosis Slight; Mean Platelet Volume 7.2; Platelet Count 209 k/uL (150-450); RBC 2.61 m/uL (3.80-5.40); RDW 15.8 % (11.5-15.5); WBC 7.3 k/uL (3.8-10.6)
[2024-10-04 11:15] LABS: African American GFR (CKD) 20 (>60 ml/min/1.73 sqM); Anion Gap 7 mmol/L; Blood Urea Nitrogen 22 mg/dL (7-17); Calcium 8.5 mg/dL (8.4-10.2); Carbon Dioxide 30 mmol/L (22-30); Chloride 99 mmol/L (98-107); Glucose 94 mg/dL (74-99); Non-African American GFR(CKD) 18 (>60 ml/min/1.73 sqM); Potassium 4.5 mmol/L (3.5-5.1); Sodium 136 mmol/L (137-145)
--- NOTE | 2024-10-04 11:16 | P.PN ---
Subjective Patient seen in follow-up for end-stage renal disease. No problems with dialysis yesterday. Blood pressure low this morning and currently receiving a fluid bolus. No active complaints per patient. Vital signs are stable. Blood pressure on the lower end. General: No acute distress. HEENT: Head exam is unremarkable. LUNGS: No audible rhonchi or wheezes. HEART: Rate and Rhythm are regular. ABDOMEN: Nontender. EXTREMITITES: No edema. Objective - Vital Signs Vital signs: Vital Signs Temp 98.7 F 10/04/24 07:34 Pulse 74 10/04/24 07:34 Resp 18 10/04/24 07:34 BP 95/50 10/04/24 10:05 Pulse Ox 97 10/04/24 07:34 FiO2 Intake & Output 10/03/24 10/04/24 10/04/24 18:59 06:59 18:59 Intake Total 400 590 118 Output Total 2800 200 Balance -2400 390 118 Weight 47.627 kg Intake: Oral 590 118 Hemodialysis 400 Output: Urine 400 200 Hemodialysis 1400 Hemodialysis Net Amount 1000 Other: Voiding Method External Catheter External Catheter External Catheter - Labs CBC & Chem 7: 10/04/24 10:26 10/03/24 07:19 Labs: Abnormal Lab Results - Last 24 Hours (Table) 10/03/24 10/03/24 10/03/24 Range/Units 07:19 12:05 12:07 RBC (3.80-5.40) m/uL Hgb (11.4-16.0) gm/dL Hct (34.0-46.0) % MCV (80.0-100.0) fL RDW (11.5-15.5) % Macrocytosis (manual) 2+ A POC Glucose (mg/dL) 157 H (70-110) mg/dL TIBC 214 L (228-460) UG/DL Transferrin 153.0 L (204.0-354.0) mg/dL Ferritin 790.0 H (10.0-291.0) ng/mL 10/03/24 10/04/24 Range/Units 20:17 10:26 RBC 2.61 L (3.80-5.40) m/uL Hgb 8.6 L (11.4-16.0) gm/dL Hct 26.2 L (34.0-46.0) % MCV 100.7 H (80.0-100.0) fL RDW 15.8 H (11.5-15.5) % Macrocytosis (manual) POC Glucose (mg/dL) 157 H (70-110) mg/dL TIBC (228-460) UG/DL Transferrin (204.0-354.0) mg/dL Ferritin (10.0-291.0) ng/mL Assessment and Plan Plan: Assessment: 1. End-stage renal disease maintained on hemodialysis on Monday schedule via permacath. Has maturing left upper extremity AV graft. 2. Status post fall with left pubic rami fracture. No surgeries planned by orthopedic surgery. 3. Diabetes mellitus. 4. Hypertension with chronic kidney disease. Blood pressure on the lower end. 5. Anemia of chronic kidney disease. Iron replete. 6. Chronic kidney disease mineral bone disease. Plan: Hemodialysis tomorrow. Add Aranesp. Currently receiving a 500 cc bolus. Amlodipine discontinued.
[2024-10-04 12:26] LABS: Glucose,Whole Blood 99 mg/dL (70-110)
[2024-10-04] MEDS: DARBEPOETIN ALFA 40 MCG/0.4 ML SYRINGE SQ SCH (12:49)
--- NOTE | 2024-10-04 14:22 | P.PN ---
Subjective Progress Note Date: 10/04/24 79-year-old female with PMH of dementia, diabetes mellitus, ESRD on dialysis (TTS), hyperlipidemia, hypertension, thyroid disorder. Presents to the emergency department due to pain in her left hip area following a fall 5 days ago. Patient was sent to the emergency department for further evaluation follo wing an outpatient x-ray which showed concern for fracture of the left hip. WBCs 9.5, hemoglobin 9.4, hematocrit 29.1, platelet 263; sodium 138, potassium 5.2, BUN 35, creatinine 3.11, phosphorus 4.7, magnesium 2.0. Chest x-ray done in the ER showed no acute cardiopulmonary process. CT pelvis showed acute nondisplaced left inferior pubic ramus fracture. No acute hip or acetabular fracture. Heale d right superior and inferior pubic rami fractures, additional healed right sacral jean carlos fracture. EKG done in the ER showed heart rate of , no ST segment elevation or depression seen, no T-wave inversions seen. 10/03 Patient was seen and examined. No acute events overnight. No complaints. CBC and CMP significant for RBC 2.55, Hg 8, Hct 27, MCV 105.9, AG 12.3, BUN 37.5, Cr 3.5, Ca 8.6, Phos 5.5, Mag 2.1, T. Bili 0,2, ALT < 5, alb 3.5. Ortho consulted, recommends SNF. Nephrology consulted for HD on TTS schedule. 10/04 Patient was seen and examined. BP as low as 93/37 this morning. Patient generally feeling well. Complaints of LUE swelling, venous doppler showing patent AV graft. Iron studies show Fe 64, Ferritin 790. CBC and BMP significant for RBC 2.61, Hg 8.6, Hct 26.2, MCV 100.7, Na 136, BUN 22, Cr 2.49. Evaluated by PT and OT, plans for [facility]. General: non toxic, no distress, appears at stated age Derm: warm, dry Head: atraumatic, normocephalic, symmetric Eyes: EOMI, no lid lag, anicteric sclera Mouth: no lip lesion, mucus membranes moist Cardiovascular: S1S2 reg, no murmur Lungs: CTA bilateral, no rhonchi, no rales , no accessory muscle use Abdominal: soft, nontender to palpation, no guarding, no appreciable organomegaly Ext: no gross muscle atrophy, no edema, no contractures Neuro: no focal neuro deficits Psych: Alert, oriented, appropriate affect Based on my assessment of this patient, this patient meets a high complexity level of care. Hypotension: No signs of sepsis. 500 cc NS bolus ordered. DC Amlodipine. Acute left pubic rami fracture: Ortho on board. Plans for SNF. PT and OT on board. Fall precautions. ESRD on dialysis (TTS schedule): Nephrology consult for HD. Hyperphosphatemia Anemia of chronic disease Diabetes mellitus: ISS with accuchecks ACHS. Hyperlipidemia: Lipitor 40 mg PO daily. Hypothyroidism: Continue home levothyroxine 100 mcg PO daily , 50 mcg on Monday Parkinson's: Continue home carbidopalevodopa 25-100 mg. Anxiety/depression: Continue Celexa 20 mg PO QD. CODE STATUS: NO CODE DVT Prophylaxis: Heparin SQ GI Prophylaxis: Protonix IV Designated medical POA if patient is not able to make medical decisions for them selves: I have reviewed the following farm service consultant notes: Nephrology I have reviewed the results of the following tests: Iron studies, CBC, BMP. I have ordered the following tests: I have discussed the care of this patient with the following independent historian: YAMILETH. I have independently interpreted the following test below: I have discussed the management of this patient with the following physician: Objective - Vital Signs Vital signs: Vital Signs Temp 98.7 F 10/04/24 07:34 Pulse 74 10/04/24 07:34 Resp 18 10/04/24 07:34 BP 93/37 10/04/24 07:34 Pulse Ox 97 10/04/24 07:34 FiO2 Intake & Output 10/03/24 10/04/24 10/04/24 18:59 06:59 18:59 Intake Total 400 590 Output Total 2800 200 Balance -2400 390 Weight 47.627 kg Intake: Oral 590 Hemodialysis 400 Output: Urine 400 200 Hemodialysis 1400 Hemodialysis Net Amount 1000 Other: Voiding Method External Catheter External Catheter - Labs CBC & Chem 7: 10/04/24 10:26 10/04/24 10:26 Labs: Abnormal Lab Results - Last 24 Hours (Table) 10/03/24 10/03/24 10/03/24 Range/Units 07:19 07:19 12:05 RBC 2.55 L (4.10-5.20) X 10*6/uL Hgb 8.0 L (12.0-15.0) g/dL Hct 27.0 L (37.2-46.3) % MCV 105.9 H (80.0-97.0) FL MCHC 29.6 L (32.0-37.0) g/dL RDW 17.2 H (11.5-14.5) % Macrocytosis (manual) 2+ A Anion Gap 12.30 H (4.00-12.00) mmol/L BUN 37.5 H (9.0-27.0) mg/dL Creatinine 3.5 H (0.6-1.5) mg/dL Est GFR (CKD-EPI) 13 L (>=60) BUN/Creatinine Ratio 10.71 L (12.00-20.00) Ratio POC Glucose (mg/dL) 157 H (70-110) mg/dL Calcium 8.6 L (8.7-10.3) mg/dL Phosphorus 5.5 H (2.4-5.1) mg/dL TIBC (228-460) UG/DL Transferrin (204.0-354.0) mg/dL Ferritin (10.0-291.0) ng/mL Total Bilirubin 0.2 L (0.3-1.2) mg/dL ALT <5 L (8-44) U/L Total Protein 5.9 L (6.2-8.2) g/dL Albumin 3.5 L (3.8-4.9) g/dL Albumin/Globulin Ratio 1.46 L (1.60-3.17) Ratio 10/03/24 10/03/24 Range/Units 12:07 20:17 RBC (4.10-5.20) X 10*6/uL Hgb (12.0-15.0) g/dL Hct (37.2-46.3) % MCV (80.0-97.0) FL MCHC (32.0-37.0) g/dL RDW (11.5-14.5) % Macrocytosis (manual) Anion Gap (4.00-12.00) mmol/L BUN (9.0-27.0) mg/dL Creatinine (0.6-1.5) mg/dL Est GFR (CKD-EPI) (>=60) BUN/Creatinine Ratio (12.00-20.00) Ratio POC Glucose (mg/dL) 157 H (70-110) mg/dL Calcium (8.7-10.3) mg/dL Phosphorus (2.4-5.1) mg/dL TIBC 214 L (228-460) UG/DL Transferrin 153.0 L (204.0-354.0) mg/dL Ferritin 790.0 H (10.0-291.0) ng/mL Total Bilirubin (0.3-1.2) mg/dL ALT (8-44) U/L Total Protein (6.2-8.2) g/dL Albumin (3.8-4.9) g/dL Albumin/Globulin Ratio (1.60-3.17) Ratio
[2024-10-04 17:41] LABS: Glucose,Whole Blood 113 mg/dL (70-110)
[2024-10-04 20:48] LABS: Glucose,Whole Blood 147 mg/dL (70-110)
[2024-10-05 07:04] LABS: HCT 24.6 % (34.0-46.0); HGB 8.1 gm/dL (11.4-16.0); Hypochromasia Slight; MCH 32.9 pg (25.0-35.0); MCHC 32.9 g/dL (31.0-37.0); Macrocytosis Slight; Mean Platelet Volume 7.2; Platelet Count 206 k/uL (150-450); RBC 2.46 m/uL (3.80-5.40); RDW 15.8 % (11.5-15.5); WBC 8.1 k/uL (3.8-10.6)
[2024-10-05 07:12] LABS: African American GFR (CKD) 13 (>60 ml/min/1.73 sqM); Anion Gap 6 mmol/L; Blood Urea Nitrogen 34 mg/dL (7-17); Calcium 8.4 mg/dL (8.4-10.2); Carbon Dioxide 28 mmol/L (22-30); Chloride 101 mmol/L (98-107); Glucose 88 mg/dL (74-99); Non-African American GFR(CKD) 11 (>60 ml/min/1.73 sqM); Potassium 4.7 mmol/L (3.5-5.1); Sodium 135 mmol/L (137-145)
[2024-10-05 07:13] LABS: Glucose,Whole Blood 93 mg/dL (70-110)
[2024-10-05] MEDS: MIDODRINE 5 MG TAB PO SCH (09:34)
--- NOTE | 2024-10-05 11:47 | P.DS ---
Providers Date of admission: 10/02/24 17:26 Expected date of discharge: 10/05/24 Attending physician: Venkata Swift MD Consults: 10/02/24 17:24 Consult Physician Routine Consulting Provider: Yvan Garcia Consult Reason/Comments: CKD Do you want consulting provider notified?: Yes Consult Physician Routine Consulting Provider: Tim Alan Consult Reason/Comments: pubicRamiFx Do you want consulting provider notified?: Yes Primary care physician: Daniel Lala MD Hospital Course: 79-year-old female with PMH of dementia, diabetes mellitus, ESRD on dialysis (TTS), hyperlipidemia, hypertension, thyroid disorder. Presents to the emergency department due to pain in her left hip area following a fall 5 days ago. Patient was sent to the emergency department for further evaluation following an outpatient x-ray which showed concern for fracture of the left hip. WBCs 9.5, hemoglobin 9.4, hematocrit 29.1, platelet 263; sodium 138, potassium 5.2, BUN 35, creatinine 3.11, phosphorus 4.7, magnesium 2.0. Chest x-ray done in the ER showed no acute cardiopulmonary process. CT pelvis showed acute nondisplaced left inferior pubic ramus fracture. No acute hip or acetabular fracture. Healed right superior and inferior pubic rami fractures, additional healed right sacral jean carlos fracture. EKG done in the ER showed heart rate of , no ST segment elevation or depression seen, no T-wave inversions seen. 10/03 Patient was seen and examined. No acute events overnight. No complaints. CBC and CMP significant for RBC 2.55, Hg 8, Hct 27, MCV 105.9, AG 12.3, BUN 37.5, Cr 3.5, Ca 8.6, Phos 5.5, Mag 2.1, T. Bili 0,2, ALT < 5, alb 3.5. Ortho consulted, recommends SNF. Nephrology consulted for HD on TTS schedule. 10/04 Patient was seen and examined. BP as low as 93/37 this morning. Patient generally feeling well. Complaints of LUE swelling, venous doppler showing patent AV graft. Iron studies show Fe 64, Ferritin 790. CBC and BMP significant for RBC 2.61, Hg 8.6, Hct 26.2, MCV 100.7, Na 136, BUN 22, Cr 2.49. Evaluated by PT and OT, plans for [facility]. 10/05 Patient was seen and examined. BP 100/40 this morning. Started on Midodrine with parameters. No complaints. CBC and BMP significant for RBC 2.46, Hg 8.1, Hct 24.6, Na 135, BUN 34, Cr 3.58. Plans for [facility] today. Discharge Plan: Follow up with PCP within 1-2 days of discharge. Follow up with Dr. Alan within 3 weeks of discharge. Diet: Renal Resume HD on TTS schedule. Protective weightbearing left lower extremity, recommend use of a walker at all times. General: non toxic, no distress, appears at stated age Derm: warm, dry Head: atraumatic, normocephalic, symmetric Eyes: EOMI, no lid lag, anicteric sclera Mouth: no lip lesion, mucus membranes moist Cardiovascular: S1S2 reg, no murmur Lungs: CTA bilateral, no rhonchi, no rales , no accessory muscle use Abdominal: soft, nontender to palpation, no guarding, no appreciable organomegaly Ext: no gross muscle atrophy, no edema, no contractures Neuro: no focal neuro deficits Psych: Alert, oriented, appropriate affect Discharge Diagnosis: Hypotension Acute left pubic rami fracture ESRD on dialysis (TTS schedule) Hyperphosphatemia Anemia of chronic disease Diabetes mellitus Hyperlipidemia Hypothyroidism Parkinson's Anxiety/depression This complex discharge took 35 minutes to complete. Patient Condition at Discharge: Stable Plan - Discharge Summary Discharge Rx Participant: Yes New Discharge Prescriptions: New Midodrine [ProAmatine] 5 mg PO AC-TID tab Continue Levothyroxine Sodium 100 mcg PO MOTUWETHFRSA@0600 Pantoprazole [Protonix] 40 mg PO BID Levothyroxine Sodium [Synthroid] 50 mcg PO CALABRESE@0600 Mirtazapine [Remeron] 7.5 mg PO HS Ascorbic Acid [Vitamin C] 500 mg PO DAILY@1200 Simvastatin [Zocor] 80 mg PO HS Carbidopa-Levodopa 25-100 mg [Sinemet 25-100 mg] 1 tab PO DIRECTED Furosemide [Lasix] 60 mg PO DAILY@1200 Potassium Chloride ER [K-Dur 20] 20 meq PO DAILY@1200 Lacosamide 50 mg PO TUTHSA Aspirin EC [Ecotrin Low Dose] 81 mg PO DAILY Citalopram Hydrobromide [CeleXA] 20 mg PO DAILY INSULIN LISPRO (HumaLOG) [humaLOG] See Protocol SQ ACHS Lacosamide [Vimpat] 100 mg PO BID Magnesium Oxide [Mag-Ox] 400 mg PO DAILY@1200 Changed Acetaminophen Tab [Tylenol] 500 mg PO Q6H PRN #0 PRN Reason: Pain Discontinued amLODIPine [Norvasc] 5 mg PO DAILY@1200 Discharge Medication List Levothyroxine Sodium 100 mcg PO MOTUWETHFRSA@0600 07/27/22 [History] Simvastatin [Zocor] 80 mg PO HS 07/27/22 [History] Carbidopa-Levodopa 25-100 mg [Sinemet 25-100 mg] 1 tab PO DIRECTED 10/30/23 [History] Furosemide [Lasix] 60 mg PO DAILY@1200 02/09/24 [History] Levothyroxine Sodium [Synthroid] 50 mcg PO CALABRESE@0600 02/09/24 [History] Pantoprazole [Protonix] 40 mg PO BID 02/09/24 [History] Potassium Chloride ER [K-Dur 20] 20 meq PO DAILY@1200 04/11/24 [History] Mirtazapine [Remeron] 7.5 mg PO HS 08/18/24 [History] Lacosamide 50 mg PO TUTHSA 09/03/24 [History] Ascorbic Acid [Vitamin C] 500 mg PO DAILY@1200 10/02/24 [History] Aspirin EC [Ecotrin Low Dose] 81 mg PO DAILY 10/02/24 [History] Citalopram Hydrobromide [CeleXA] 20 mg PO DAILY 10/02/24 [History] INSULIN LISPRO (HumaLOG) [humaLOG] See Protocol SQ ACHS 10/02/24 [History] Lacosamide [Vimpat] 100 mg PO BID 10/02/24 [History] Magnesium Oxide [Mag-Ox] 400 mg PO DAILY@1200 10/02/24 [History] Acetaminophen Tab [Tylenol] 500 mg PO Q6H PRN #0 10/05/24 [Rx] Midodrine [ProAmatine] 5 mg PO AC-TID tab 10/05/24 [Rx] Follow up Appointment(s)/Referral(s): Daniel Lala MD [Primary Care Provider] - 1-2 days Goodmanson,Tim, DO [Doctor of Osteopathic Medicine] - 3 Weeks Activity/Diet/Wound Care/Special Instructions: Diet: Renal Resume HD on TTS schedule Discharge Disposition: TRANSFER TO SNF/ECF
[2024-10-05 13:14] LABS: Glucose,Whole Blood 138 mg/dL (70-110)
[2024-10-05 17:24] LABS: Glucose,Whole Blood 102 mg/dL (70-110)
[2024-10-05 19:24] VITALS: BP 125/53; PULSE 74; RESP 16; TEMP 98
--- NOTE | 2024-10-05 19:33 | P.PN ---
Subjective Patient is seen for follow-up for end-stage renal disease. Seen on hemodialysis today. Tolerating treatment well. Minimal UF. Blood pressure remains on the lower side. Objective - Vital Signs Vital signs: Vital Signs Temp 98 F 10/05/24 19:22 Pulse 74 10/05/24 19:22 Resp 16 10/05/24 19:22 BP 125/53 10/05/24 19:22 Pulse Ox 96 10/05/24 08:04 FiO2 Intake & Output 10/05/24 10/05/24 10/06/24 06:59 18:59 06:59 Intake Total 400 Output Total 1000 Balance -600 Intake: Hemodialysis 400 Output: Hemodialysis 700 Hemodialysis Net Amount 300 Other: Voiding Method External Catheter # Voids 0 - Exam Patient is awake comfortable not in any acute distress. Examination of the heart S1 and S2 Examination of the lungs bilateral breath sounds are heard Abdomen is soft nontender Examination of lower extremities shows no significant edema - Labs CBC & Chem 7: 10/05/24 06:33 10/05/24 06:33 Labs: Abnormal Lab Results - Last 24 Hours (Table) 10/04/24 10/05/24 10/05/24 Range/Units 20:42 06:33 06:33 RBC 2.46 L (3.80-5.40) m/uL Hgb 8.1 L (11.4-16.0) gm/dL Hct 24.6 L (34.0-46.0) % RDW 15.8 H (11.5-15.5) % Sodium 135 L (137-145) mmol/L BUN 34 H (7-17) mg/dL Creatinine 3.58 H (0.52-1.04) mg/dL POC Glucose (mg/dL) 147 H (70-110) mg/dL 10/05/24 Range/Units 13:12 RBC (3.80-5.40) m/uL Hgb (11.4-16.0) gm/dL Hct (34.0-46.0) % RDW (11.5-15.5) % Sodium (137-145) mmol/L BUN (7-17) mg/dL Creatinine (0.52-1.04) mg/dL POC Glucose (mg/dL) 138 H (70-110) mg/dL Assessment and Plan Assessment: 1. End-stage renal disease maintained on hemodialysis on Monday schedule via permacath. Has maturing left upper extremity AV graft. 2. Status post fall with left pubic rami fracture. No surgeries planned by orthopedic surgery. 3. Diabetes mellitus. 4. Hypertension with chronic kidney disease. Blood pressure on the lower end. 5. Anemia of chronic kidney disease. Iron replete. 6. Chronic kidney disease mineral bone disease. Plan: Minimal UF today
[2024-10-06] MEDS ORDERED: LEVOTHYROXINE 50 MCG TAB PO SCH (06:00)
== END 2024-10-05 19:48 | DRG 535 ==
LOC: SUPCPDRO 13:30 → EC 13:30 → 1SOBS 17:26 → 4SSUR 17:39 → 5NMEDONC 10-03 01:56
PROVIDERS: ADMIT Internal Medicine; ATTEND Internal Medicine
PROC: 5A1D70Z Performance of Urinary Filtration, Intermittent, Less than 6 Hours Per Day (ICD-10-PCS; principal; 2024-10-03)
DX: S32.592A Other specified fracture of left pubis, initial encounter for closed fracture (principal); N18.6 End stage renal disease; F02.84 Dementia in other diseases classified elsewhere, unspecified severity, with anxiety; I12.0 Hypertensive chronic kidney disease with stage 5 chronic kidney disease or end stage renal disease; F02.83 Dementia in other diseases classified elsewhere, unspecified severity, with mood disturbance; E11.22 Type 2 diabetes mellitus with diabetic chronic kidney disease; E78.5 Hyperlipidemia, unspecified; E03.9 Hypothyroidism, unspecified; I95.9 Hypotension, unspecified; E83.39 Other disorders of phosphorus metabolism; D63.1 Anemia in chronic kidney disease; G20.A1 Parkinson's disease without dyskinesia, without mention of fluctuations; F32.A Depression, unspecified; M89.8X9 Other specified disorders of bone, unspecified site; W01.0XXA Fall on same level from slipping, tripping and stumbling without subsequent striking against object, initial encounter; Z99.2 Dependence on renal dialysis; Y92.009 Unspecified place in unspecified non-institutional (private) residence as the place of occurrence of the external cause; Z79.890 Hormone replacement therapy; Z79.82 Long term (current) use of aspirin; Z95.828 Presence of other vascular implants and grafts
CPT/HCPCS: 36415; 71045; 72192; 80048; 80053; 81001; 82728; 83540; 83550; 83735; 84100; 84443; 84484; 85025; 85027; 85610; 85730; 90935; 93005; 96361; 96374; 96375; 96376; 99285

== ENCOUNTER → 2024-10-02 | Outpatient (CLI) | payer MEDICARE ==
--- NOTE | 2024-10-02 13:14 | XR ---
EXAMINATION TYPE: XR femur LT DATE OF EXAM: 10/02/2024 1:05 PM COMPARISON: None. CLINICAL INDICATION: Female, 79 years old with history of M25.552 M79.605 M25.572 Pain, pain TECHNIQUE: XR femur LT views are obtained. FINDINGS: There is no acute fracture or dislocation seen of the femur. The hip and knee joints [place] within normal limits. The overlying soft tissue appears unremarkable. IMPRESSION: There is no acute fracture or dislocation seen of the femur. [facility], , 10/02/2024 1:11 PM
--- NOTE | 2024-10-02 13:15 | XR ---
EXAMINATION TYPE: XR Hip LT and AP Pelvis DATE OF EXAM: 10/02/2024 1:04 PM COMPARISON: None. CLINICAL INDICATION: Female, 79 years old with history of M25.552 M79.605 M25.572 Pain, pain TECHNIQUE: XR Hip LT and AP Pelvis views were obtained. AP Pelvis also obtained. FINDINGS: There is lucency in the region of the acetabulum for which I cannot exclude a fracture. 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 The joint space appears within normal limits. The overlying soft tissue appea rs unremarkable. IMPRESSION: There is lucency in the region of the acetabulum for which I cannot exclude a fracture. Consider CT c orrelation. [facility], , 10/02/2024 1:12 PM
--- NOTE | 2024-10-02 13:16 | XR ---
EXAMINATION TYPE: XR tibia fibula LT DATE OF EXAM: 10/02/2024 1:04 PM COMPARISON: None. CLINICAL INDICATION: Female, 79 years old with history of M25.552 M79.605 M25.572 Pain, pain TECHNIQUE: XR tibia fibula LT views were obtained FINDINGS: There is no acute fracture/dislocation evident. The joint spaces appear within normal limits. The o verlying soft tissue appears unremarkable. IMPRESSION: No acute fracture or dislocation seen. [facility], , 10/02/2024 1:14 PM
--- NOTE | 2024-10-02 13:16 | XR ---
EXAMINATION TYPE: XR ankle complete LT DATE OF EXAM: 10/02/2024 1:04 PM COMPARISON: None. CLINICAL INDICATION: Female, 79 years old with history of M25.552 M79.605 M25.572 Pain, TECHNIQUE: XR ankle complete LT, views submitted for evaluation. FINDINGS: There is no evidence for fracture or dislocation. The joint spaces appear within normal limits. The overlying soft tissue appears unremarkable. Ankle mortise is intact. Soft tissues are within normal l imits. IMPRESSION: 1. No evidence for acute fracture. [facility], , 10/02/2024 1:13 PM
== END ==
LOC: RADXRMAIN 12:28
PROVIDERS: ATTEND Family Medicine
DX: M25.552 Pain in left hip (principal); M79.605 Pain in left leg; M25.572 Pain in left ankle and joints of left foot
CPT/HCPCS: 73502

== ENCOUNTER 2025-01-21 06:46 | Observation (INO) | payer MEDICARE ==
--- NOTE | 2025-01-21 07:16 | ED ---
General Adult HPI - General Chief complaint: Recheck/Abnormal Lab/Rx Stated complaint: Dialysis Port Blockage Time Seen by Provider: 01/21/25 06:56 Source: patient, RN notes reviewed Mode of arrival: wheelchair - History of Present Illness Initial comments: 79-year-old female presents to the emergency department for evaluation of a blocked dialysis fistula. Patient receives dialysis 3 days a week on Monday, , Monday. She states that she went in for her dialysis session this morning. They were unable to perform dialysis because they believe that her fistula is clotted. She states that the fistula was done by Dr. Rodriguez. She feels otherwise is her normal self. - Related Data Home Medications Medication Instructions Recorded Confirmed Levothyroxine Sodium 100 mcg PO MOTUWETHFRSA@0600 07/27/22 01/21/25 Simvastatin [Zocor] 80 mg PO HS 07/27/22 01/21/25 Carbidopa-Levodopa 25-100 mg 1 tab PO QID 10/30/23 01/21/25 [Sinemet 25-100 mg] Furosemide [Lasix] 60 mg PO DAILY 02/09/24 01/21/25 Levothyroxine Sodium [Synthroid] 50 mcg PO CALABRESE@0600 02/09/24 01/21/25 Pantoprazole [Protonix] 40 mg PO DAILY 02/09/24 01/21/25 Potassium Chloride ER [K-Dur 20] 20 meq PO DAILY 04/11/24 01/21/25 Mirtazapine [Remeron] 15 mg PO HS 08/18/24 01/21/25 Aspirin EC [Ecotrin Low Dose] 81 mg PO DAILY 10/02/24 01/21/25 Citalopram Hydrobromide [CeleXA] 20 mg PO DAILY 10/02/24 01/21/25 INSULIN LISPRO (HumaLOG) [humaLOG] See Protocol SQ BID 10/02/24 01/21/25 Magnesium Oxide [Mag-Ox] 200 mg PO HS 10/02/24 01/21/25 Acetaminophen Tab [Tylenol] 1,000 mg PO Q6H PRN 01/21/25 01/21/25 Calcium Carbonate [Tums] 500 mg PO TID-W/MEALS 01/21/25 01/21/25 Lidocaine-Prilocaine Cream [Emla 1 applic TOPICAL TUTHSA PRN 01/21/25 01/21/25 Cream 2.5%/2.5%] Previous Rx's Medication Instructions Recorded Lacosamide 50 mg PO TUTHSA #9 tab 10/05/24 Lacosamide [Vimpat] 100 mg PO BID #6 tab 10/05/24 Allergies Allergy/AdvReac Type Severity Reaction Status Date / Time No Known Allergies Allergy Verified 01/21/25 06:54 Review of Systems ROS Statement: Those systems with pertinent positive or pertinent negative responses have been documented in the HPI. ROS Other: All systems not noted in ROS Statement are negative. Past Medical History Past Medical History: Dementia, Diabetes Mellitus, Dialysis, Hyperlipidemia, Hypertension, Renal Disease, Thyroid Disorder Additional Past Medical History / Comment(s): dailysis tu,th,sa History of Any Multi-Drug Resistant Organisms: None Reported Date of last positivie culture/infection: 01/04/24 MDRO Source:: Urine Past Surgical History: Orthopedic Surgery Additional Past Surgical History / Comment(s): shoulder infection , Past Anesthesia/Blood Transfusion Reactions: No Reported Reaction Past Psychological History: Anxiety, Depression Smoking Status: Never smoker Past Alcohol Use History: None Reported Past Drug Use History: None Reported - Past Family History Brother(s) Additional Family Medical History / Comment(s): Unable to obtain due to patient's underlying dementia General Exam Limitations: no limitations General appearance: alert, in no apparent distress Head exam: Present: atraumatic, normocephalic, normal inspection Eye exam: Present: normal appearance, PERRL, EOMI. Absent: scleral icterus, conjunctival injection, periorbital swelling Respiratory exam: Present: normal lung sounds bilaterally. Absent: respiratory distress, wheezes, rales, rhonchi, stridor Cardiovascular Exam: Present: regular rate, normal rhythm, normal heart sounds. Absent: systolic murmur, diastolic murmur, rubs, gallop, clicks Extremities exam: Present: full ROM, normal capillary refill, other (No palpable thrill or audible bruit to the fistula of the left arm). Absent: tenderness, pedal edema, joint swelling, calf tenderness Neurological exam: Present: alert, oriented X3 Psychiatric exam: Present: normal affect, normal mood Skin exam: Present: warm, dry, intact, normal color. Absent: rash Course Vital Signs 01/21/25 01/21/25 06:51 11:52 Temperature 97.8 F Pulse Rate 76 78 Respiratory 18 18 Rate Blood Pressure 157/68 165/71 O2 Sat by Pulse 99 99 Oximetry Medical Decision Making - Medical Decision Making Was pt. sent in by a medical professional or institution (, TERELL, LOTTERIES AGENT, urgent care, hospital, or prison...) When possible be specific @ -No Did you speak to anyone other than the patient for history (EMS, parent, family, police, friend...)? What history was obtained from this source @ -No Did you review nursing and triage notes (agree or disagree)? Why? @ -I reviewed and agree with nursing and triage notes Were old charts reviewed (outside hosp., previous admission, EMS record, old EKG, old radiological studies, urgent care reports/EKG's, prison records)? Report findings @ -No old charts were reviewed Differential Diagnosis (chest pain, altered mental status, abdominal pain women, abdominal pain men, vaginal bleeding, weakness, fever, dyspnea, syncope, headache, dizziness, GI bleed, back pain, seizure, CVA, palpatations, mental health, musculoskeletal)? @ -Not applicable EKG interpreted by me (3pts min.). @ -None X-rays interpreted by me (1pt min.). @ -None done CT interpreted by me (1pt min.). @ -None done U/S interpreted by me (1pt. min.). @ -None done What testing was considered but not performed or refused? (CT, X-rays, U/S, labs)? Why? @ -None What meds were considered but not given or refused? Why? @ -None Did you discuss the management of the patient with other professionals (professionals i.e. TERELL Thacker, LOTTERIES AGENT, lab, RT, psych nurse, neonatal social worker, plastics fitter, teacher, boating safety officer, watch caser)? Give summary @ -Case was discussed with Dr. Charles recommended contacting Dr. Rodriguez or Shirley Stark Case discussed with Shirley Stark who will come to the emergency department to evaluate the patient Was smoking cessation discussed for >3mins.? @ -No Was critical care preformed (if so, how long)? @ -No Were there social determinants of health that impacted care today? How? (Homelessness, low income, unemployed, alcoholism, drug addiction, transportation, low edu. Level, literacy, decrease access to med. care, correction, rehab)? @ -No Was there de-escalation of care discussed even if they declined (Discuss DNR or withdrawal of care, Hospice)? DNR status @ -No What co-morbidities impacted this encounter? (DM, HTN, Smoking, COPD, CAD, Cancer, CVA, ARF, Chemo, Hep., AIDS, mental health diagnosis, sleep apnea, morbid obesity)? @ -ESRD Was patient admitted / discharged? Hospital course, mention meds given and route, prescriptions, significant lab abnormalities, going to OR and other pertinent info. @ -Admitted patient presented emergency department for issues with her dialysis fistula. There is no audible bruit or palpable thrill.Laboratory studies were obtained revealing no significant leukocytosis, hemoglobin 11.7; normal coagulation studies; CMP shows hyperkalemia with a potassium of 5.5 patient was administered Lokelma. Patient has elevated BUN at 17, creatinine 4.54. I discussed the case with vascular surgery, Dr. Charles who recommends contact to Dr. Rodriguez. Shirley Stark and Dr. Rodriguez evaluated the patient recommend admission and n.p.o. after midnight. Patient is understanding agreeable with this plan. Patient stable at time of admission. Case discussed with Dr. Rey Undiagnosed new problem with uncertain prognosis? @ -No Drug Therapy requiring intensive monitoring for toxicity (Heparin, Nitro, Insulin, Cardizem)? @ -No Were any procedures done? @ -No Diagnosis/symptom? @ -Dialysis fistula complication Acute, or Chronic, or Acute on Chronic? @ -acute Uncomplicated (without systemic symptoms) or Complicated (systemic symptoms)? @ -uncomplicated Side effects of treatment? @ -No Exacerbation, Progression, or Severe Exacerbation? @ -No Poses a threat to life or bodily function? How? (Chest pain, [place], [place], pneumonia, PE, COPD, DKA, ARF, appy, cholecystitis, CVA, Diverticulitis, Homicidal, Suicidal, threat to staff... and all critical care pts) @ -No - Lab Data Result diagrams: 01/22/25 04:23 01/22/25 04:23 Lab Results 01/21/25 01/21/25 01/21/25 Range/Units 07:52 07:52 07:52 WBC 7.0 (3.8-10.6) k/uL RBC 3.74 L (3.80-5.40) m/uL Hgb 11.7 (11.4-16.0) gm/dL Hct 37.4 (34.0-46.0) % MCV 100.1 H (80.0-100.0) fL MCH 31.3 (25.0-35.0) pg MCHC 31.3 (31.0-37.0) g/dL RDW 15.3 (11.5-15.5) % Plt Count 205 (150-450) k/uL MPV 7.0 Neutrophils % 69 % Lymphocytes % 20 % Monocytes % 6 % Eosinophils % 3 % Basophils % 1 % Neutrophils # 4.8 (1.3-7.7) k/uL Lymphocytes # 1.4 (1.0-4.8) k/uL Monocytes # 0.4 (0-1.0) k/uL Eosinophils # 0.2 (0-0.7) k/uL Basophils # 0.0 (0-0.2) k/uL Hypochromasia Moderate Macrocytosis Slight PT 10.9 (10.0-12.5) sec INR 1.0 (<1.2) APTT 22.9 (22.0-30.0) sec Sodium 140 (137-145) mmol/L Potassium 5.5 H (3.5-5.1) mmol/L Chloride 99 (98-107) mmol/L Carbon Dioxide 28 (22-30) mmol/L Anion Gap 13 mmol/L BUN 72 H (7-17) mg/dL Creatinine 4.54 H (0.52-1.04) mg/dL Est GFR (CKD-EPI)AfAm 10 (>60 ml/min/1.73 sqM) Est GFR (CKD-EPI)NonAf 9 (>60 ml/min/1.73 sqM) Glucose 170 H (74-99) mg/dL Calcium 9.0 (8.4-10.2) mg/dL Magnesium 2.6 H (1.6-2.3) mg/dL Total Bilirubin 0.6 (0.2-1.3) mg/dL AST 25 (14-36) U/L ALT 6 (4-34) U/L Alkaline Phosphatase 123 (38-126) U/L Total Protein 7.8 (6.3-8.2) g/dL Albumin 4.5 (3.5-5.0) g/dL Disposition Clinical Impression: Dialysis AV fistula malfunction Disposition: ADMITTED IP TO THIS HOSP Condition: Stable Is patient prescribed a controlled substance at d/c from ED?: No
[2025-01-21 07:58] LABS: Basophils % (A) 1 %; Eosinophils # (A) 0.2 k/uL (0-0.7); Eosinophils % (A) 3 %; HCT 37.4 % (34.0-46.0); HGB 11.7 gm/dL (11.4-16.0); Hypochromasia Moderate; Lymphocytes # (A) 1.4 k/uL (1.0-4.8); Lymphocytes % (A) 20 %; MCH 31.3 pg (25.0-35.0); MCHC 31.3 g/dL (31.0-37.0); MCV 100.1 fL (80.0-100.0); Macrocytosis Slight; Monocytes # (A) 0.4 k/uL (0-1.0); Monocytes % (A) 6 %; Neutrophils # (A) 4.8 k/uL (1.3-7.7); Neutrophils % (A) 69 %; Platelet Count 205 k/uL (150-450); RBC 3.74 m/uL (3.80-5.40); RDW 15.3 % (11.5-15.5)
[2025-01-21 08:06] LABS: Partial Thromboplastin Time 22.9 sec (22.0-30.0); Prothrombin Time 10.9 sec (10.0-12.5)
[2025-01-21 08:29] LABS: ALT 6 U/L (4-34); AST 25 U/L (14-36); African American GFR (CKD) 10 (>60 ml/min/1.73 sqM); Albumin 4.5 g/dL (3.5-5.0); Alkaline Phosphatase 123 U/L (38-126); Anion Gap 13 mmol/L; Blood Urea Nitrogen 72 mg/dL (7-17); Carbon Dioxide 28 mmol/L (22-30); Chloride 99 mmol/L (98-107); Glucose 170 mg/dL (74-99); Magnesium 2.6 mg/dL (1.6-2.3); Non-African American GFR(CKD) 9 (>60 ml/min/1.73 sqM); Potassium 5.5 mmol/L (3.5-5.1); Sodium 140 mmol/L (137-145); Total Bilirubin 0.6 mg/dL (0.2-1.3); Total Protein 7.8 g/dL (6.3-8.2)
--- NOTE | 2025-01-21 10:34 | P.GSCN ---
History of Present Illness Consult date: 01/21/25 Reason for Consult: Malfunctioning dialysis graft Requesting physician: Mackenzie Jimenez History of present illness: This is a pleasant 79-year-old female who presented to the emergency department this morning after going to hemodialysis and her graft was malfunctioning. She has a history of end-stage renal disease on hemodialysis and had a left upper extremity loop forearm graft created 09/05/[address] Rodriguez. Her hemodialysis schedule is Monday and Saturdays. Her last hemodialysis was on Monday which she states there was no problem. She reportedly has no palpable thrill or audible bruit. Vascular surgery was consulted for malfunctioning HD graft. She denies any shortness of breath, chest pain, abdominal pain, nausea or vomiting. No lower extremity swelling. She denies any pain to the left upper extremity, no swelling, drainage or pain at the graft site. Sodium 140 potassium 5.5 BUN 72 creatinine 4.5 magnesium 2.6 Review of Systems A 14 point review systems was completed all pertinent positives and negatives as stated in the HPI. Past Medical History Past Medical History: Dementia, Diabetes Mellitus, Dialysis, Hyperlipidemia, Hypertension, Renal Disease, Thyroid Disorder Additional Past Medical History / Comment(s): dailysis ,, History of Any Multi-Drug Resistant Organisms: None Reported Year Discovered:: 01/04/24 MDRO Source:: Urine Past Surgical History: Orthopedic Surgery Additional Past Surgical History / Comment(s): shoulder infection , Past Anesthesia/Blood Transfusion Reactions: No Reported Reaction Past Psychological History: Anxiety, Depression Smoking Status: Never smoker Past Alcohol Use History: None Reported Past Drug Use History: None Reported - Past Family History Brother(s) Additional Family Medical History / Comment(s): Unable to obtain due to p el's underlying dementia Medications and Allergies Home Medications Medication Instructions Recorded Confirmed Type Levothyroxine Sodium 100 mcg PO MOTUWETHFRSA@0600 07/27/22 10/02/24 History Simvastatin [Zocor] 80 mg PO HS 07/27/22 10/02/24 History Carbidopa-Levodopa 25-100 mg 1 tab PO DIRECTED 10/30/23 10/02/24 History [Sinemet 25-100 mg] Furosemide [Lasix] 60 mg PO DAILY@1200 02/09/24 10/02/24 History Levothyroxine Sodium [Synthroid] 50 mcg PO CALABRESE@0600 02/09/24 10/02/24 History Pantoprazole [Protonix] 40 mg PO BID 02/09/24 10/02/24 History Potassium Chloride ER [K-Dur 20] 20 meq PO DAILY@1200 04/11/24 10/02/24 History Mirtazapine [Remeron] 7.5 mg PO HS 08/18/24 10/02/24 History Ascorbic Acid [Vitamin C] 500 mg PO DAILY@1200 10/02/24 10/02/24 History Aspirin EC [Ecotrin Low Dose] 81 mg PO DAILY 10/02/24 10/02/24 History Citalopram Hydrobromide [CeleXA] 20 mg PO DAILY 10/02/24 10/02/24 History INSULIN LISPRO (HumaLOG) [humaLOG] See Protocol SQ ACHS 10/02/24 10/02/24 History Magnesium Oxide [Mag-Ox] 400 mg PO DAILY@1200 10/02/24 10/02/24 History Acetaminophen Tab [Tylenol] 500 mg PO Q6H PRN #0 10/05/24 10/02/24 Rx Lacosamide 50 mg PO TUTHSA #9 tab 10/05/24 Rx Lacosamide [Vimpat] 100 mg PO BID #6 tab 10/05/24 Rx Midodrine [ProAmatine] 5 mg PO AC-TID tab 10/05/24 Rx Allergies Allergy/AdvReac Type Severity Reaction Status Date / Time No Known Allergies Allergy Verified 01/21/25 06:54 Surgical - Exam Vital Signs Temp Pulse Resp BP Pulse Ox 97.8 F 76 18 157/68 99 01/21/25 06:51 01/21/25 06:51 01/21/25 06:51 01/21/25 06:51 01/21/25 06:51 General appearance: The patient is alert, oriented, appears in no acute distress. HET: Head is normocephalic and atraumatic. Neck: Supple. Heart: Regular. Lungs: Equal expansion, normal respiratory effort. Abdomen: Soft, nondistended. Extremities: Normal skin color and turgor. Left upper extremity forearm loop graft without palpable thrill or audible bruit. Neurological: No focal deficits. Alert and oriented x 3. Results - Labs 01/21/25 07:52 01/21/25 07:52 Abnormal Lab Results - Last 24 Hours (Table) 01/21/25 01/21/25 Range/Units 07:52 07:52 RBC 3.74 L (3.80-5.40) m/uL MCV 100.1 H (80.0-100.0) fL Potassium 5.5 H (3.5-5.1) mmol/L BUN 72 H (7-17) mg/dL Creatinine 4.54 H (0.52-1.04) mg/dL Glucose 170 H (74-99) mg/dL Magnesium 2.6 H (1.6-2.3) mg/dL Diabetes panel 01/21/25 Range/Units 07:52 Sodium 140 (137-145) mmol/L Potassium 5.5 H (3.5-5.1) mmol/L Chloride 99 (98-107) mmol/L Carbon Dioxide 28 (22-30) mmol/L BUN 72 H (7-17) mg/dL Creatinine 4.54 H (0.52-1.04) mg/dL Glucose 170 H (74-99) mg/dL Calcium 9.0 (8.4-10.2) mg/dL AST 25 (14-36) U/L ALT 6 (4-34) U/L Alkaline Phosphatase 123 (38-126) U/L Total Protein 7.8 (6.3-8.2) g/dL Albumin 4.5 (3.5-5.0) g/dL Calcium panel 01/21/25 Range/Units 07:52 Calcium 9.0 (8.4-10.2) mg/dL Albumin 4.5 (3.5-5.0) g/dL Pituitary panel 01/21/25 Range/Units 07:52 Sodium 140 (137-145) mmol/L Potassium 5.5 H (3.5-5.1) mmol/L Chloride 99 (98-107) mmol/L Carbon Dioxide 28 (22-30) mmol/L BUN 72 H (7-17) mg/dL Creatinine 4.54 H (0.52-1.04) mg/dL Glucose 170 H (74-99) mg/dL Calcium 9.0 (8.4-10.2) mg/dL Adrenal panel 01/21/25 Range/Units 07:52 Sodium 140 (137-145) mmol/L Potassium 5.5 H (3.5-5.1) mmol/L Chloride 99 (98-107) mmol/L Carbon Dioxide 28 (22-30) mmol/L BUN 72 H (7-17) mg/dL Creatinine 4.54 H (0.52-1.04) mg/dL Glucose 170 H (74-99) mg/dL Calcium 9.0 (8.4-10.2) mg/dL Total Bilirubin 0.6 (0.2-1.3) mg/dL AST 25 (14-36) U/L ALT 6 (4-34) U/L Alkaline Phosphatase 123 (38-126) U/L Total Protein 7.8 (6.3-8.2) g/dL Albumin 4.5 (3.5-5.0) g/dL Assessment and Plan Assessment: 1. Thrombosed left upper extremity loop graft 2. End-stage renal disease on hemodialysis 3. Hyperkalemia Plan: 1. Patient scheduled for left upper extremity fistulogram tomorrow with intervention 2. Patient discussed with Dr. Garcia from nephrology, he will treat h yperkalemia 3. Patient may have renal diet, n.p.o. after midnight 4. Rest of medical management per primary medical team Thank you for this consultation, we will continue to follow. The impression and plan of care has been dictated as directed. Dr. Hamilton Yuan performed a history and examination of this patient, discussed the same with the dictator. I agree with the dictator's note ,documented as a scribe. Any additional findings or plans will be noted.
[2025-01-21] MEDS: SODIUM ZIRCONIUM CYCLOSILICATE 10 GM PACKET PO ONE (11:49)
[2025-01-21] MEDS ORDERED: DEXTROSE 50% SYRINGE 50 ML IVP PRN ×2 (12:12)
[2025-01-21] MEDS ORDERED: PROCHLORPERAZINE 5 MG TAB PO PRN (12:12)
[2025-01-21 12:29] LABS: Glucose,Whole Blood 85 mg/dL (70-110)
[2025-01-21] MEDS: CALCIUM CARBONATE 500 MG CHEWABLE PO SCH (12:43)
[2025-01-21] MEDS: CARBIDOPA-LEVODOPA 25-100 MG 1 EACH TAB PO SCH (12:43)
[2025-01-21] MEDS: INSULIN LISPRO (HumaLOG) 100 UNIT/ML 10 mL VL SQ SCH (12:44)
--- NOTE | 2025-01-21 12:46 | P.NPCON ---
History of Present Illness - Reason for Consult end stage renal disease - History of Present Illness Reason for consultation: End-stage renal disease History of present illness: Patient is a 79-year-old female seen in renal consultation for end-stage renal disease. She is maintained on hemodialysis on Monday schedule. Patient went to hemodialysis on Monday without any issues. When she went this morning she was noted to have a clotted AV graft. She is awaiting vascular intervention. Denies chest pain or shortness of breath. She does make urine. No edema. No fever or chills. No vomiting or diarrhea. No active complaints at this time. Potassium level 5.5 this morning. Vital signs are stable. General: No acute distress. HEENT: Head exam is unremarkable. LUNGS: No audible rhonchi or wheezes. HEART: Rate and Rhythm are regular. ABDOMEN: Nontender. EXTREMITITES: No edema. Past Medical History Past Medical History: Dementia, Diabetes Mellitus, Dialysis, Hyperlipidemia, Hypertension, Renal Disease, Thyroid Disorder Additional Past Medical History / Comment(s): dailysis , History of Any Multi-Drug Resistant Organisms: None Reported Date of last positivie culture/infection: 01/04/24 MDRO Source:: Urine Past Surgical History: Orthopedic Surgery Additional Past Surgical History / Comment(s): shoulder infection , Past Anesthesia/Blood Transfusion Reactions: No Reported Reaction Past Psychological History: Anxiety, Depression Smoking Status: Never smoker Past Alcohol Use History: None Reported Past Drug Use History: None Reported - Past Family History Brother(s) Additional Family Medical History / Comment(s): Unable to obtain due to patient's underlying dementia Medications and Allergies Home Medications Medication Instructions Recorded Confirmed Type Levothyroxine Sodium 100 mcg PO MOTUWETHFRSA@0600 07/27/22 01/21/25 History Simvastatin [Zocor] 80 mg PO HS 07/27/22 01/21/25 History Carbidopa-Levodopa 25-100 mg 1 tab PO QID 10/30/23 01/21/25 History [Sinemet 25-100 mg] Furosemide [Lasix] 60 mg PO DAILY 02/09/24 01/21/25 History Levothyroxine Sodium [Synthroid] 50 mcg PO CALABRESE@0600 02/09/24 01/21/25 History Pantoprazole [Protonix] 40 mg PO DAILY 02/09/24 01/21/25 History Potassium Chloride ER [K-Dur 20] 20 meq PO DAILY 04/11/24 01/21/25 History Mirtazapine [Remeron] 15 mg PO HS 08/18/24 01/21/25 History Aspirin EC [Ecotrin Low Dose] 81 mg PO DAILY 10/02/24 01/21/25 History Citalopram Hydrobromide [CeleXA] 20 mg PO DAILY 10/02/24 01/21/25 History INSULIN LISPRO (HumaLOG) [humaLOG] See Protocol SQ BID 10/02/24 01/21/25 History Magnesium Oxide [Mag-Ox] 200 mg PO HS 10/02/24 01/21/25 History Lacosamide 50 mg PO TUTHSA #9 tab 10/05/24 01/21/25 Rx Lacosamide [Vimpat] 100 mg PO BID #6 tab 10/05/24 01/21/25 Rx Acetaminophen Tab [Tylenol] 1,000 mg PO Q6H PRN 01/21/25 01/21/25 History Calcium Carbonate [Tums] 500 mg PO TID-W/MEALS 01/21/25 01/21/25 History Lidocaine-Prilocaine Cream [Emla 1 applic TOPICAL TUTHSA PRN 01/21/25 01/21/25 History Cream 2.5%/2.5%] Allergies Allergy/AdvReac Type Severity Reaction Status Date / Time No Known Allergies Allergy Verified 01/21/25 06:54 Physical Exam Vitals: Vital Signs Temp Pulse Resp BP Pulse Ox 01/21/25 11:52 78 18 165/71 99 01/21/25 06:51 97.8 F 76 18 157/68 99 Intake and Output 01/20/25 01/21/25 01/21/25 22:59 06:59 14:59 Other: Weight 51.71 kg Results - Lab Results Most recent lab results Calcium 9.0 mg/dL (8.4-10.2) 01/21/25 07:52 Magnesium 2.6 mg/dL (1.6-2.3) H 01/21/25 07:52 01/21/25 07:52 01/21/25 07:52 Assessment and Plan Plan: Assessment: 1. End-stage renal disease maintained on hemodialysis on Monday schedule. 2. Clotted AV graft. Vascular surgery intervention pending. 3. Hyperkalemia secondary to chronic kidney disease. 4. Diabetes mellitus. Plan: Hemodialysis today post vascular intervention. Lokelma 10 g once now. Maintain Lasix. Renal diet. Thank you for the consultation. I will continue to follow the patient with you during her hospital stay.
--- NOTE | 2025-01-21 12:49 | P.HPIM ---
History of Present Illness H&P Date: 01/21/25 Patient is a 17-year-old female with past medical history of ESRD on HD TTS, HTN, HLD, anemia of chronic disease, type 2 diabetes, who presented to the ER on 01/21 from her hemodialysis due to unsuccessful session. On arrival she was hemodynamically stable with elevated blood pressure, satting well on room air. Lab work showed no leukocytosis, stable and normal hemoglobin and platelet c ount, sodium normal, potassium elevated 5.5, received 1 dose of Lokelma 10, glucose elevated at 117. Magnesium elevated 2.6. Vascular surgery nephrology consulted, plan for LUE fistulogram on 01/22 Pertinent positives and negatives as discussed in HPI, a complete review of systems was performed and all other systems are negative. Patient seen and examined at bedside. no complaints Vital signs reviewed General: nontoxic, no distress, appears at stated age Derm: warm, dry Head: atraumatic, normocephalic, symmetric Eyes: EOMI, no lid lag, anicteric sclera, pupils equal round reactive to light ENT: Nose and ears atraumatic Neck: No thyromegaly, supple Mouth: no lip lesion, mucus membranes moist Cardiovascular: S1S2 reg, no murmur, no edema Lungs: clear to auscultation bilateral, no rhonchi, no rales, no wheeze, no accessory muscle use Abdominal: soft, nontender to palpation, no guarding, no appreciable organomegaly Ext: no gross muscle atrophy, muscle strength muscle strength 5 out of 5 in all 4 extremities, no contractures, LUE AV graft without palpable thrill and audible bruit Neuro: CN II-XII grossly intact Psych: Alert, oriented, appropriate affect Assessment/Plan: Malfunctioning LUE AV graft -Surgery consulted, planning for fistulogram on 01/22, n.p.o. after midnight ESRD on HD Hyperkalemia Hypermagnesemia Anemia of chronic disease -Nephrology following -Status post Lokelma -Monitor BMP and magnesium levels Hyperlipidemia: Continue home simvastatin 80 mg daily Hypothyroidism: Continue home levothyroxine 100 mcg p.o. daily Monday to Monday, 15 mcg on Monday Parkinson's: Continue home carbidopa levodopa 25 100 Anxiety/depression: Continue Celexa 20 mg p.o. daily Continue Vimpat 100 twice daily, 50 mg p.o. Donya Thursday Saturday Diabetes mellitus: Accu-Cheks, ISS The patient is admitted with an anticipated [less] than 2 midnight stay as [/observation] status for evaluation of malfunctioning AV graft CODE STATUS full code DVT prophylaxis: SCD Anticipated discharge date: 24-[address]: home A total of 41 minutes was spent on the care of this complex patient more than 50% of the time was spent in counseling and care coordination. Past Medical History Past Medical History: Dementia, Diabetes Mellitus, Dialysis, Hyperlipidemia, Hypertension, Renal Disease, Thyroid Disorder Additional Past Medical History / Comment(s): dailysis ,, History of Any Multi-Drug Resistant Organisms: None Reported Date of last positivie culture/infection: 01/04/24 MDRO Source:: Urine Past Surgical History: Orthopedic Surgery Additional Past Surgical History / Comment(s): shoulder infection , Past Anesthesia/Blood Transfusion Reactions: No Reported Reaction Past Psychological History: Anxiety, Depression Smoking Status: Never smoker Past Alcohol Use History: None Reported Past Drug Use History: None Reported - Past Family History Brother(s) Additional Family Medical History / Comment(s): Unable to obtain due to patient's underlying dementia Medications and Allergies Home Medications Medication Instructions Recorded Confirmed Type Levothyroxine Sodium 100 mcg PO MOTUWETHFRSA@0600 07/27/22 01/21/25 History Simvastatin [Zocor] 80 mg PO HS 07/27/22 01/21/25 History Carbidopa-Levodopa 25-100 mg 1 tab PO QID 10/30/23 01/21/25 History [Sinemet 25-100 mg] Furosemide [Lasix] 60 mg PO DAILY 02/09/24 01/21/25 History Levothyroxine Sodium [Synthroid] 50 mcg PO CALABRESE@0600 02/09/24 01/21/25 History Pantoprazole [Protonix] 40 mg PO DAILY 02/09/24 01/21/25 History Potassium Chloride ER [K-Dur 20] 20 meq PO DAILY 04/11/24 01/21/25 History Mirtazapine [Remeron] 15 mg PO HS 08/18/24 01/21/25 History Aspirin EC [Ecotrin Low Dose] 81 mg PO DAILY 10/02/24 01/21/25 History Citalopram Hydrobromide [CeleXA] 20 mg PO DAILY 10/02/24 01/21/25 History INSULIN LISPRO (HumaLOG) [humaLOG] See Protocol SQ BID 10/02/24 01/21/25 History Magnesium Oxide [Mag-Ox] 200 mg PO HS 10/02/24 01/21/25 History Lacosamide 50 mg PO TUTHSA #9 tab 10/05/24 01/21/25 Rx Lacosamide [Vimpat] 100 mg PO BID #6 tab 10/05/24 01/21/25 Rx Acetaminophen Tab [Tylenol] 1,000 mg PO Q6H PRN 01/21/25 01/21/25 History Calcium Carbonate [Tums] 500 mg PO TID-W/MEALS 01/21/25 01/21/25 History Lidocaine-Prilocaine Cream [Emla 1 applic TOPICAL TUTHSA PRN 01/21/25 01/21/25 History Cream 2.5%/2.5%] Allergies Allergy/AdvReac Type Severity Reaction Status Date / Time No Known Allergies Allergy Verified 01/21/25 06:54 Physical Exam Vitals: Vital Signs Temp Pulse Resp BP Pulse Ox 01/21/25 11:52 78 18 165/71 99 01/21/25 06:51 97.8 F 76 18 157/68 99 Intake and Output 01/20/25 01/21/25 01/21/25 22:59 06:59 14:59 Other: Weight 51.71 kg Results CBC & Chem 7: 01/21/25 07:52 01/21/25 07:52 Labs: Abnormal Lab Results - Last 24 Hours (Table) 01/21/25 01/21/25 Range/Units 07:52 07:52 RBC 3.74 L (3.80-5.40) m/uL MCV 100.1 H (80.0-100.0) fL Potassium 5.5 H (3.5-5.1) mmol/L BUN 72 H (7-17) mg/dL Creatinine 4.54 H (0.52-1.04) mg/dL Glucose 170 H (74-99) mg/dL Magnesium 2.6 H (1.6-2.3) mg/dL
[2025-01-21 17:17] LABS: Glucose,Whole Blood 147 mg/dL (70-110)
[2025-01-21] MEDS: LACOSAMIDE 50 MG TABLET PO SCH ×2 (17:54→21:32)
[2025-01-21 19:11] LABS: Glucose,Whole Blood 107 mg/dL (70-110)
[2025-01-21] MEDS: ATORVASTATIN 40 MG TAB PO SCH (21:32)
[2025-01-21] MEDS: MIRTAZAPINE 15 MG TAB PO SCH (21:32)
[2025-01-22] MEDS: PANTOPRAZOLE 40 MG TABLET PO SCH (05:15)
[2025-01-22] MEDS: LEVOTHYROXINE 100 MCG TAB PO SCH (05:15)
[2025-01-22] MEDS: ACETAMINOPHEN TAB 500 MG TAB PO PRN (05:15)
[2025-01-22 06:13] LABS: Glucose,Whole Blood 110 mg/dL (70-110)
[2025-01-22] MEDS: HEPARIN SODIUM,PORCINE 10,000 UNIT in SODIUM CHLORIDE 0.9% 1,000 ML IRRIGATION ONE (07:43)
[2025-01-22] MEDS: MIDAZOLAM 2 MG/2 ML VIAL IVP ONE (07:43)
[2025-01-22] MEDS: LIDOCAINE 1% INJ 10MG/ML (20 ML MDV) SQ ONE (07:43)
[2025-01-22] MEDS: IV FLUID CONTINUATION 500 ML IV ONE (07:43)
[2025-01-22] MEDS: fentaNYL (PF) 50 MCG/ML 2 ML AMP IVP ONE (07:43)
[2025-01-22] MEDS: ALTEPLASE 2 MG VIAL (CATHFLO) IV ONE ×2 (08:02→08:08)
[2025-01-22 08:34] LABS: Basophils # (A) 0.04 X 10*3/uL (0.00-0.10); Basophils % (A) 0.6 %; Eosinophils # (A) 0.19 X 10*3/uL (0.04-0.35); Eosinophils % (A) 2.7 %; HCT 34.4 % (37.2-46.3); HGB 10.8 g/dL (12.0-15.0); Lymphocytes # (A) 1.75 X 10*3/uL (0.90-5.00); Lymphocytes % (A) 24.8 %; MCH 31.4 pg (27.0-32.0); MCHC 31.4 g/dL (32.0-37.0); Mean Platelet Volume 10.1 FL (9.5-12.2); Monocytes # (A) 0.54 X 10*3/uL (0.20-1.00); Monocytes % (A) 7.6 %; NRBC Per 100 WBC 0 X 10*3/uL (0.00-0.01); Neutrophils # (A) 4.51 X 10*3/uL (1.80-7.70); Neutrophils % (A) 63.9 %; Platelet Count 211 X 10*3/uL (140-440); RBC 3.44 X 10*6/uL (4.10-5.20); RDW 15.4 % (11.5-14.5); WBC 7.06 X 10*3/uL (4.50-10.00)
[2025-01-22 08:54] LABS: BUN/Creat Ratio 13.83 Ratio (12.00-20.00); Blood Urea Nitrogen 71.9 mg/dL (9.0-27.0); Calcium 9.2 mg/dL (8.7-10.3); Carbon Dioxide 23.9 mmol/L (21.6-31.8); Chloride 101 mmol/L (96-109); Glucose 101 mg/dL (70-110); Magnesium 2.7 mg/dL (1.5-2.4); Phosphorus 5.9 mg/dL (2.4-5.1); Potassium 5.2 mmol/L (3.5-5.5); Sodium 141 mmol/L (135-145)
--- NOTE | 2025-01-22 09:18 | IR ---
EXAMINATION TYPE: IR dredge captain venous DATE OF EXAM: 01/22/2025 8:57 AM COMPARISON: Pre Operative Images if available both CT/MRI or plain film CLINICAL INDICATION: Female, 79 years old with history of OCCLUDED LEFT ARM FISTULA; TECHNIQUE: IR dredge captain venous, multiple fluoroscopic images provided for procedure. DAP: 80.80 mGym2 Gycm2 uGym2 cGycm2 or equivalent. FINDINGS: IMPRESSION: 1. Report was generated for administrative purposes only. 2. Please see the operative/procedural note for further details. [facility], , 01/22/2025 9:16 AM
[2025-01-22] MEDS: ALTEPLASE 2 MG VIAL (CATHFLO) IV STA ×2 (09:23)
[2025-01-22 09:26] VITALS: RESP 16; TEMP 97.8
--- NOTE | 2025-01-22 11:11 | P.PN ---
Subjective Patient is seen in follow-up for end-stage renal disease. Underwent fistulogram this morning. Just getting started on dialysis. No active complaints. Vital signs are stable. General: No acute distress. HEENT: Head exam is unremarkable. LUNGS: No audible rhonchi or wheezes. HEART: Rate and Rhythm are regular. ABDOMEN: Nontender. EXTREMITITES: No edema. Objective - Vital Signs Vital signs: Vital Signs Temp 97.8 F 01/22/25 09:25 Pulse 67 01/22/25 09:25 Resp 16 01/22/25 09:25 BP 179/89 01/22/25 09:25 Pulse Ox 100 01/22/25 09:25 FiO2 Intake & Output 01/21/25 01/22/25 01/22/25 18:59 06:59 18:59 Intake Total 540 50 Balance 540 50 Weight 51.71 kg Intake: IV 50 Oral 540 Other: Voiding Method Toilet Toilet Toilet # Voids 1 1 - Labs CBC & Chem 7: 01/22/25 04:23 01/22/25 04:23 Labs: Abnormal Lab Results - Last 24 Hours (Table) 01/21/25 01/22/25 01/22/25 Range/Units 17:15 04:23 04:23 RBC 3.44 L (4.10-5.20) X 10*6/uL Hgb 10.8 L (12.0-15.0) g/dL Hct 34.4 L (37.2-46.3) % MCV 100.0 H (80.0-97.0) FL MCHC 31.4 L (32.0-37.0) g/dL RDW 15.4 H (11.5-14.5) % Anion Gap 16.10 H (4.00-12.00) mmol/L BUN 71.9 H (9.0-27.0) mg/dL Creatinine 5.2 H (0.6-1.5) mg/dL Est GFR (CKD-EPI) 8 L (>=60) POC Glucose (mg/dL) 147 H (70-110) mg/dL Phosphorus 5.9 H (2.4-5.1) mg/dL Magnesium 2.7 H (1.5-2.4) mg/dL Assessment and Plan Plan: Assessment: 1. End-stage renal disease maintained on hemodialysis on Monday schedule. 2. Clotted AV graft. Status post fistulogram this morning. 3. Hyperkalemia secondary to chronic kidney disease. Improved with medical management. 4. Diabetes mellitus. Plan: Hemodialysis today. Another treatment tomorrow per her patient scheduled. Maintain Lasix. Renal diet. Potential discharge home if no issues with dialysis today.
--- NOTE | 2025-01-22 11:23 | P.OP ---
Date of Procedure: 01/22/25 Description of Procedure: Preoperative diagnosis: Thrombosed left forearm loop graft Postoperative diagnosis: Same Procedure: Ultrasound-guided AV graft access 2 Fistulogram Pharmacal mechanical thrombectomy with 6-Tamazight AngioJet Percutaneous transluminal balloon angioplasty of the inflow 5 x 40, Percutaneous transdermal balloon angioplasty outflow 7 x 40 Moderate conscious sedation 5770 minutes, personal monitoring certified RN administration with hemodynamic monitoring Surgeon: Danya Rodriguez D.O. EBL: Less than 10 mL IV fluids: See records Urine output: Not measured Drains: None Complications: None immediately apparent Condition: Stable to recovery Operative indication and findings: Patient is a 79-year-old female with a loop graft from left upper arm who was unable to get dialysi due to thrombosis of the graft. She states has not been any issue with the graft access. She typically has no alarming findings during dialysis itself. Due to thrombosis, we discussed plans and she presents for fistulogram and intervention She seemingly understands the plan is willing to proceed. Procedure in detail: Patient was taken to the special suite and placed in supine position. Left upper extremity is prepped and draped in usual sterile fashion. A preprocedure timeout was performed, all parties were in agreement. Using ultrasound, initially in the outflow direction, the graft was accessed. Permanent images stored. Catheters and wires were utilized passed into the outflow vein and venogram was performed showing no evidence of obvious stenosis of the venous outflow. The catheter was then drawn back until the level of the outflow anastomosis which did appear to be thrombosed. tPA was instilled via a pullback method. Dwelling time was allowed and during this time, access was obtained towards the inflow direction. Again using ultrasound the graft was cannulated and a 6-Tamazight sheath was placed. Catheters and wires were placed into the brachial artery and images performed showing patent arterial vasculature That point the arterial inflow was treated with TPA instillation. While this was dwelling, the suction thrombectomy portion was performed of the outflow. Following this outflow imaging was performed. There was evidence of moderate stenosis at the anastomosis and access points in the outflow tract therefore a 7 x 40 balloon was used for angioplasty. There was improvement there was good flow through. Attention was then turned towards the inflow. Suction thrombectomy was performed. An angiogram via the brachial artery was performed showing continuous flow through the entirety of the graft with mild stenosis of the arterial anastomosis and areas of access. 5 x 40 balloon was utilized to angioplasty this inflow area. Repeat images performed, there was significant improvement of flow through the graft with resolution of the mild stenosis. There appeared to be adequate pulse to the graft with flow throughout. Final imaging was performed showing continued improvement of the outflow anastomosis with brisk washing of contrast. At that point catheters and wires were removed. The sheath was removed and [id number] sutures were placed at each site. Dressings were placed the patient was allowed awaken from her sedation and transferred to recovery in stable condition having tolerated her procedure well.
[2025-01-22 12:15] LABS: Glucose,Whole Blood 135 mg/dL (70-110)
--- NOTE | 2025-01-22 14:26 | P.DS ---
Providers Date of admission: 01/21/25 11:29 Attending physician: Bernie Garcia MD Consults: 01/21/25 10:50 Consult Physician Routine Consulting Provider: Yvan Garcia Consult Reason/Comments: dialysis pt Do you want consulting provider notified?: Yes 01/21/25 10:51 Consult Physician Routine Consulting Provider: Dre Charles Consult Reason/Comments: clotted fistula Do you want consulting provider notified?: Already Contacted Primary care physician: Daniel Lala MD Hospital Course: Discharge Diagnosis: Thrombosed LUE AV graft s/p thrombectomy 12/25 ESRD on HD Hyperkalemia, resolved Hypomagnesemia Anemia of chronic disease Hyperlipidemia Hypothyroidism Parkinson's disease Anxiety/depression Type II DM Hospital Course: Patient is a 79-year-old female with past medical history of ESRD on HD TTS, HTN, HLD, anemia of chronic disease, type 2 diabetes, who presented to the ER on 01/21 from her hemodialysis due to unsuccessful session. On arrival she was hemodynamically stable with elevated blood pressure, satting well on room air. Lab work showed no leukocytosis, stable and normal hemoglobin and platelet count, sodium normal, potassium elevated 5.5, received 1 dose of Lokelma 10, glucose elevated at 117. Magnesium elevated 2.6. Vascular surgery nephrology consulted Patient went for thrombectomy on 01/22,Final imaging was performed showing continued improvement of the outflow anastomosis with brisk washing of contrast. She proceeded with hemodialysis, tolerated it well. She will be discharged home, continue her regular hemodialysis schedule, follow-up with her nephrology team. Hyperkalemia is resolved Patient seen and examined at bedside Vital signs reviewed and stable. General: [nontoxic], [no distress], [appears at stated age] Derm: [warm], [dry] Head: [atraumatic], [normocephalic], [symmetric] Eyes: [EOMI], [no lid lag], [anicteric sclera] Mouth: [no lip lesion], [mucus membranes moist] Cardiovascular: [S1S2 reg], [no murmur] Lungs: [CTA bilateral], [no rhonchi, no rales] , [no accessory muscle use] Abdominal: [soft], [ nontender to palpation], [no guarding], [no appreciable organomegaly] Ext: [no gross muscle atrophy], [no edema], [no contractures] Neuro: [ CN II-XI grossly intact], [no focal neuro deficits] Psych: [Alert], [oriented], [appropriate affect] A total of42] minutes of time were spent preparing this complex discharge summary. Patient was discharged on 01/22 Patient Condition at Discharge: Stable Plan - Discharge Summary Discharge Rx Participant: No New Discharge Prescriptions: No Action Levothyroxine Sodium 100 mcg PO MOTUWETHFRSA@0600 Pantoprazole [Protonix] 40 mg PO DAILY Levothyroxine Sodium [Synthroid] 50 mcg PO CALABRESE@0600 Mirtazapine [Remeron] 15 mg PO HS Lidocaine-Prilocaine Cream [Emla Cream 2.5%/2.5%] 1 applic TOPICAL TUTHSA PRN PRN Reason: PORT ACCESS Simvastatin [Zocor] 80 mg PO HS Carbidopa-Levodopa 25-100 mg [Sinemet 25-100 mg] 1 tab PO QID Furosemide [Lasix] 60 mg PO DAILY Potassium Chloride ER [K-Dur 20] 20 meq PO DAILY Aspirin EC [Ecotrin Low Dose] 81 mg PO DAILY Citalopram Hydrobromide [CeleXA] 20 mg PO DAILY INSULIN LISPRO (HumaLOG) [humaLOG] See Protocol SQ BID Magnesium Oxide [Mag-Ox] 200 mg PO HS Lacosamide 50 mg PO TUTHSA #9 tab Lacosamide [Vimpat] 100 mg PO BID #6 tab Acetaminophen Tab [Tylenol] 1,000 mg PO Q6H PRN PRN Reason: Pain Calcium Carbonate [Tums] 500 mg PO TID-W/MEALS Discharge Medication List Levothyroxine Sodium 100 mcg PO MOTUWETHFRSA@0600 07/27/22 [History] Simvastatin [Zocor] 80 mg PO HS 07/27/22 [History] Carbidopa-Levodopa 25-100 mg [Sinemet 25-100 mg] 1 tab PO QID 10/30/23 [History] Furosemide [Lasix] 60 mg PO DAILY 02/09/24 [History] Levothyroxine Sodium [Synthroid] 50 mcg PO CALABRESE@0600 02/09/24 [History] Pantoprazole [Protonix] 40 mg PO DAILY 02/09/24 [History] Potassium Chloride ER [K-Dur 20] 20 meq PO DAILY 04/11/24 [History] Mirtazapine [Remeron] 15 mg PO HS 08/18/24 [History] Aspirin EC [Ecotrin Low Dose] 81 mg PO DAILY 10/02/24 [History] Citalopram Hydrobromide [CeleXA] 20 mg PO DAILY 10/02/24 [History] INSULIN LISPRO (HumaLOG) [humaLOG] See Protocol SQ BID 10/02/24 [History] Magnesium Oxide [Mag-Ox] 200 mg PO HS 10/02/24 [History] Lacosamide 50 mg PO TUTHSA #9 tab 10/05/24 [Rx] Lacosamide [Vimpat] 100 mg PO BID #6 tab 10/05/24 [Rx] Acetaminophen Tab [Tylenol] 1,000 mg PO Q6H PRN 01/21/25 [History] Calcium Carbonate [Tums] 500 mg PO TID-W/MEALS 01/21/25 [History] Lidocaine-Prilocaine Cream [Emla Cream 2.5%/2.5%] 1 applic TOPICAL TUTHSA PRN 01/21/25 [History] Follow up Appointment(s)/Referral(s): Nick Mustafa MD [REFERRING] - 1-2 days
[2025-01-22] MEDS: ASPIRIN 81 MG PO SCH (14:35)
[2025-01-22] MEDS: FUROSEMIDE 20 MG TAB PO SCH (14:35)
[2025-01-22] MEDS: CITALOPRAM HYDROBROMIDE 20 MG TAB PO SCH (14:36)
[2025-01-22 15:29] VITALS: BP 179/85; PULSE 74
[2025-01-26] MEDS ORDERED: LEVOTHYROXINE 50 MCG TAB PO SCH (06:00)
== END 2025-01-22 14:50 | disposition home or self-care (01) ==
LOC: EC 06:46 → 6NMEDSUR 11:29
PROVIDERS: ADMIT Student in an Organized Health Care Education/Training Program; ATTEND Student in an Organized Health Care Education/Training Program
DX: T82.868A Thrombosis due to vascular prosthetic devices, implants and grafts, initial encounter (principal); Y83.2 Surgical operation with anastomosis, bypass or graft as the cause of abnormal reaction of the patient, or of later complication, without mention of misadventure at the time of the procedure; I12.0 Hypertensive chronic kidney disease with stage 5 chronic kidney disease or end stage renal disease; N18.6 End stage renal disease; E87.5 Hyperkalemia; E11.22 Type 2 diabetes mellitus with diabetic chronic kidney disease; E83.42 Hypomagnesemia; D63.1 Anemia in chronic kidney disease; E78.5 Hyperlipidemia, unspecified; E03.9 Hypothyroidism, unspecified; F32.A Depression, unspecified; F41.9 Anxiety disorder, unspecified; G20.A1 Parkinson's disease without dyskinesia, without mention of fluctuations; F02.80 Dementia in other diseases classified elsewhere, unspecified severity, without behavioral disturbance, psychotic disturbance, mood disturbance, and anxiety; Z79.4 Long term (current) use of insulin; Z99.2 Dependence on renal dialysis; Z79.82 Long term (current) use of aspirin; Z79.890 Hormone replacement therapy; Z79.899 Other long term (current) drug therapy
CPT/HCPCS: 99285; 36415; 93005; 80053; 80048; 83735 ×2; 84100; 84132; 85025 ×2; 85610; 85730; 36905; G0378 ×2; J2250; J1644; J2003; J3010; J2997; 90935

== ENCOUNTER → 2025-03-21 | Outpatient (CLI) | payer MEDICARE | END | disposition home or self-care (01) | LOC: LABWHC1 07:12 | PROVIDERS: ATTEND Psychiatry & Neurology Neurology | DX: R56.9 Unspecified convulsions (principal) | CPT/HCPCS: 36415; 80235 ==